=== PATIENT | male | born 1950 | race Caucasian/White ===

== ENCOUNTER 2022-02-26 15:15 | Outpatient (REF) | payer MEDICARE, SELFPAY ==
[2022-02-26 15:54] LABS: COVID-19 Test Negative (Negative); IDNOW Serial# 55D5AD1C
== END 2022-02-26 15:16 | disposition home or self-care (01) ==
LOC: HO.LAB 15:15
PROVIDERS: Visit Provider Internal Medicine
DX: Z20.822 Contact with and (suspected) exposure to COVID-19 (principal)
CPT/HCPCS: 87635; C9803

== ENCOUNTER 2022-04-21 14:06 | Outpatient (REF) | payer MEDICARE, OTHER, SELFPAY ==
[2022-04-21 16:01] LABS: Hematocrit 37.8 % (42.0-52.0); Hemoglobin 12.3 g/dl (14.0-18.0); Mean Corpuscular HGB Conc 32.5 g/dl (31.0-36.0); Mean Corpuscular Hemoglobin 27.8 pg (27.0-33.0); Mean Corpuscular Volume 85.5 fL (80.0-98.0); Mean Platelet Volume 10.1 fL (9.4-12.4); Platelet Count 167 X10*3/uL (160-400); Red Blood Count 4.42 X10*6/uL (4.60-5.80); Red Cell Distribution Width 15.1 % (11.0-16.0); White Blood Count 6.1 X10*3/uL (4.8-10.8)
[2022-04-21 16:38] LABS: Alanine Aminotransferase 31 U/L (0-40); Albumin Level 4.4 g/dL (3.5-5.0); Alkaline Phosphatase 138 U/L (39-117); Anion Gap 13 (12-20); Aspartate Amino Transferase 38 U/L (5-37); Bilirubin Total 0.6 mg/dL (0.0-1.0); Blood Urea Nitrogen 29 mg/dL (9-16); Calcium 9.1 mg/dL (8.4-10.2); Carbon Dioxide 26 mmol/L (22-29); Chloride 107 mmol/L (96-108); Estimated Glomerular Filt Rate 46; Glucose Random 87 mg/dL (60-115); Lipase 25 U/L (8-78); Potassium 4.7 mmol/L (3.3-5.1); Sodium 141 mmol/L (135-145); Total Protein 6.7 g/dL (6.5-8.0)
[2022-04-21 16:54] LABS: TSH reflex Free T4 1.82 uIU/mL (0.32-4.0)
== END 2022-04-21 14:07 | disposition home or self-care (01) ==
LOC: HO.LAB 14:06
PROVIDERS: PCP Internal Medicine; Visit Provider Nurse Practitioner Family
DX: K21.9 Gastro-esophageal reflux disease without esophagitis (principal); K59.1 Functional diarrhea; R10.9 Unspecified abdominal pain; K59.00 Constipation, unspecified; D64.9 Anemia, unspecified; E03.9 Hypothyroidism, unspecified; E78.5 Hyperlipidemia, unspecified; I10 Essential (primary) hypertension
CPT/HCPCS: 36415; 80053; 83690; 84443; 85027; 99202

== ENCOUNTER 2022-06-03 11:53 | Outpatient (REF) | payer OTHER, SELFPAY ==
[2022-06-03 15:32] LABS: Blood Urea Nitrogen 27 mg/dL (9-16); C Reactive Protein 0.17 mg/dL (< or = 0.50); Estimated Glomerular Filt Rate 56
[2022-06-03 16:05] LABS: Folate 17.1 ng/mL (> or = 4.0); Vitamin B12 888 pg/mL (200-900)
[2022-06-08 15:23] LABS: Vitamin D 25-OH, D2 <4 ng/mL; Vitamin D 25-OH, D3 70 ng/mL; Vitamin D 25-OH, Total 70 ng/mL (30-100)
== END 2022-06-03 11:54 | disposition home or self-care (01) ==
LOC: HO.LAB 11:53
PROVIDERS: PCP Internal Medicine; Visit Provider Nurse Practitioner Family
DX: R10.11 Right upper quadrant pain (principal); K58.9 Irritable bowel syndrome, unspecified; E55.9 Vitamin D deficiency, unspecified; R19.7 Diarrhea, unspecified; D64.9 Anemia, unspecified
CPT/HCPCS: 36415; 82306; 82565; 82607; 82746; 84520; 86140; 99212

== ENCOUNTER 2022-06-04 12:48 | Outpatient (REF) | payer OTHER, SELFPAY ==
[2022-06-10 21:59] LABS: Calprotectin, Fecal 14 mcg/g
== END 2022-06-04 12:49 | disposition home or self-care (01) ==
LOC: HO.LNP 12:48
PROVIDERS: Visit Provider Nurse Practitioner Family
DX: R15.9 Full incontinence of feces (principal)
CPT/HCPCS: 83993

== ENCOUNTER 2022-07-10 08:02 | Outpatient (REF) | payer OTHER, MEDICARE, SELFPAY ==
--- NOTE | ~2022-07-10 | CT_ITS ---
EXAMINATION: CT ENTEROGRAPHY ABDOMEN AND PELVIS WITH CONTRAST CLINICAL INFORMATION: Diarrhea COMPARISON: None available. TECHNIQUE: Study performed with oral VoLumen (1350 mL) and 480 mL of water to distend the abdomen. The patient was injected with 85 mL Omnipaque 350 intravenous contrast which was administered without adverse effect. Coronal and sagittal reformatted images were obtained at the technologist's workstation. This CT examination was performed using dose optimization techniques as appropriate, variously including the following: *Automated exposure control *Adjustment of mA and/or kV according to patient size (this includes techniques or standardized protocols for targeted exams where dose is matched to indication/reason for exam; i.e. extremities or head) *Use of iterative reconstruction technique DLP: 858 mGy-cm FINDINGS: GASTROINTESTINAL FINDINGS: Stomach: Well-distended and normal in appearance. Small intestine: Satisfactorily distended and normal in appearance. Large intestine: Well-distended and normal in appearance. No perirectal changes demonstrated. The appendix is is not identified with certainty. Additional findings: No abnormal enhancement of the vasa recta or significant mesenteric or retroperitoneal lymphadenopathy is seen. No abdominal abscess or fistulous tract demonstrated. ABDOMINAL AND PELVIC CT FINDINGS: Liver, gallbladder, biliary tract: Normal Pancreas: Normal Spleen: Normal Adrenal glands and kidneys: There is a small 3 mm stone in the upper pole of the left kidney. Adrenal glands and kidneys are otherwise normal. Ureters and bladder: Ureters are normal. Bladder not optimally distended. Prominent prostate gland measuring 4 x 4.5 cm in AP and transverse dimension. Lymphovascular structures: Severe atherosclerotic disease. No aneurysm. Coronary artery calcification. Bones: Degenerative changes of the spine and scoliosis. Mild degenerative changes at the hip joints. Small umbilical hernia containing fat. Lung bases: There is a 4 mm calcified right lower lobe nodule. There is a 4 x 8 mm noncalcified left lower lobe nodule. There is dependent atelectasis at the lung bases. CT/CT enterography IMPRESSION: Unremarkable CT enterography exam. Small nonobstructing left renal stone. Severe atherosclerotic disease and coronary artery calcification. Prominent prostate gland. Small umbilical hernia containing fat. Small calcified right lower lobe nodule probably representing a calcified granuloma. 4 x 8 mm noncalcified left lower lobe nodule. Chest CT follow-up recommended.
[2022-07-10] MEDS: iohexoL 350 MG/ML 100 ML INFUS..BTL 85 ML IV (09:39)
[2022-07-10] MEDS: Sorbitol/Mannit/Xanth Imaging 500 ML LIQUID 1500 ML PO (09:40)
[2022-07-10 14:36] LABS: Creatinine POC 1.5 mg/dL (0.5-1.4); GFR POC > 60
== END 2022-07-10 08:03 | disposition home or self-care (01) ==
LOC: HO.CT 08:02
PROVIDERS: PCP Internal Medicine; Visit Provider Nurse Practitioner Family
DX: R19.7 Diarrhea, unspecified (principal)
CPT/HCPCS: 74177; 82565; Q9967

== ENCOUNTER → 2022-07-22 08:02 | Outpatient (BNVA) | payer OTHER, MEDICARE, SELFPAY | PROVIDERS: PCP Internal Medicine; Visit Provider Nurse Practitioner Family | DX: K59.1 Functional diarrhea (principal); K58.9 Irritable bowel syndrome, unspecified | CPT/HCPCS: 99212 ==

== ENCOUNTER → 2022-08-31 10:59 | Outpatient (BNVA) | payer OTHER, MEDICARE, SELFPAY | PROVIDERS: PCP Internal Medicine; Referring Provider Internal Medicine; Visit Provider Nurse Practitioner Family | DX: K58.2 Mixed irritable bowel syndrome (principal); Z79.899 Other long term (current) drug therapy | CPT/HCPCS: 99212 ==

== ENCOUNTER 2023-03-09 13:58 | Day surgery (SDC) | payer OTHER, SELFPAY ==
--- NOTE | 2023-03-09 13:42 | MHC.SHP ---
Pre-Procedural Eval Section A Date of Service: 03/09/23 Section B Chief Complaint: screening Relevant Family History (Specify if Yes): No Relevant Social History: None Present Medications: see Short Stay Collaborative assessment Medical History: Significant History (htn, thyroid disease, high cholesterol, CAD) History of Previous Operations: Relevant previous surgery/procedure and date(s) (Hx of left knee surgery Hx of right knee surgery) Allergies: Allergies Allergy/AdvReac Type Severity Reaction Status Date / Time No Known Allergies Allergy Unverified 08/31/22 11:07 [No Known Allergies*] Review of Systems Sugical H&P ROS: Negative: Constitution, Cardiovascular, Respiratory, Neurological, Psychiatric, Hem-Onc, Allergic/Immunologic, Gastrointestinal, Genitourinary, Musculoskeletal, Integumentary, Endocrine and Eyes/Ears/Nose/Throat Exam Surgical H&P Exam: Normal: HEENT, Normal: Heart, Normal: Lungs, Normal: Extremities, Normal: Abdomen, Normal: Skin and Normal: Neurological Plan Diagnosis/Plan: Unchanged I have reviewed the history and physical and performed a pertinent physical examination on my patient. No changes have occurred unless specified. Time Spent With Patient Time: Total time managing care of this patient today ____ minutes.
[2023-03-09 14:08] VITALS: BMI 34.7
[2023-03-09 14:15] VITALS: BP 157/97; PULSE 75; RESP 18; TEMP 36.7; O2SAT 96
[2023-03-09] MEDS: Lactated Ringers 1,000 ML 80 ML IVCONT (14:20)
--- NOTE | 2023-03-09 14:37 | PC.NURSE ---
report given to minoo duggan rn at this time.
--- NOTE | 2023-03-09 15:08 | P.OP_ITS ---
Operative Note Operative Note Date of Service: 03/09/23 Narrative: Operative Information Procedure Description: Colonoscopy Indication: screening Anesthesia: MAC COLONOSCOPY Instrument: Olympus variable stiffness ADULT scope 190L Colonoscopy Monitoring: Vital signs and clinical assessment, continuous EKG monitoring, Pulse oximetry, Carbon Dioxide monitoring and blood pressure monitoring were done throughout the procedure. Colon withdrawal time was 6 minutes. Procedure: The patient was placed in the left lateral decubitis position and pre-procedure medications were administered. After a digital rectal examination of the ano-rectum, the video colonoscope was inserted into the rectum and advanced through the colon to the cecum/TI. The colonoscope was slowly withdrawn in a retrograde panoramic fashion and the colon mucosa was carefully examined including a retroflexed view of the rectum. Findings and interventions are described below. Procedure Difficulty: easy Findings: Terminal Ileum-normal Cecum:normal Ascending Colon: normal Transverse Colon -normal Descending Colon:normal Sigmoid Colon: midl diverticulosis Rectum: Retroflexion with medium sized internal hemorrhoids, grade I Anorectum - normal Colon preparation: [place] Bowel Preparation Scale Right colon; 2 Transverse colon: 3 Left colon; 3 (0 = Unprepared colon segment with mucosa not seen due to solid stool that cannot be cleared. 1 = Portion of mucosa of the colon segment seen, but other areas of the colon segment not well seen due to staining, residual stool and/or opaque liquid. 2 = Minor amount of residual staining, small fragments of stool and/or opaque liquid, but mucosa of colon segment seen well. 3 = Entire mucosa of colon segment seen well with no residual staining, small fragments of stool or opaque liquid) Impression and Post Procedure Diagnosis: internal hemorrhoids diverticular disease Plan: High fiber diet leaflet Avoid straining at stool, epsom salts and sitz bath, anusol supps or cream Repeat Colonoscopy in 10 years if patient desires and if health allows or earlier if clinically indicated otherwise this would be his last screening colonoscopy Above findings were reviewed with the patient and relevant handouts were provided if indicated.
--- NOTE | 2023-03-09 15:11 | P.CONAN_ITS ---
[facility] Past Medical History Medical History (Updated 03/09/23 @ 14:16 by Mary Ellen Yusuf RN) Hypercholesteremia Hypothyroid Hypertension Family History Family History Father Hypothyroidism determined by thyroid function test Mother HTN (hypertension) Family history of problems with anesthesia: No Surgical History Surgical History (Updated 03/09/23 @ 14:17 by Mary Ellen Yusuf RN) Hx of colonoscopy Hx of right knee surgery Hx of left knee surgery History of Problems with Anesthesia: No Social History Social History Household Members: None Alcohol intake: current Patient Tobacco Use Status: Former Tobacco user Substance Use Type: Marijuana Are you DNR?: No Advance Directives: No Advance Directives Information Provided: Yes Nutrition Risks: No Nutritional Risk Meds Allergies Allergy/AdvReac Type Severity Reaction Status Date / Time No Known Allergies Allergy Verified 03/09/23 14:21 [No Known Allergies*] Active Medications: Current Medications Lactated Ringer's (Lr) 1,000 mls @ 80 mls/hr IVCONT .[id number] ANJU Last Admin: 03/09/23 14:20 Dose: 80 mls/hr Home Medications Medication Instructions Recorded Confirmed Last Taken Type aspirin 81 mg tablet,delayed 81 mg PO DAILY 04/21/22 03/09/23 03/06/23 History release (Adult Low Dose Aspirin) diclofenac sodium 50 mg 50 mg PO BID 04/21/22 03/09/23 Unknown History tablet,delayed release hydrochlorothiazide 25 mg tablet 25 mg PO DAILY 04/21/22 03/09/23 03/09/23 History levothyroxine 25 mcg capsule 25 mcg PO DAILY 04/21/22 03/09/23 03/09/23 History lisinopril 10 mg tablet 10 mg PO DAILY 04/21/22 03/09/23 Unknown History rosuvastatin 20 mg tablet (Crestor) 20 mg PO DAILY 04/21/22 03/09/23 Unknown History Exam Height,Weight and Vital Signs: Height 5 ft 6 in Weight 97.522 kg Last Vital Signs Temp 98.0 F 03/09/23 14:15 Pulse 75 03/09/23 14:15 Resp 18 03/09/23 14:15 BP 157/97 H 03/09/23 14:15 Pulse Ox 96 11/28/23 14:15 O2 Del Method Room Air 03/09/23 14:15 Airway Mallampati Class: II TM Dist: >3cm Neck ROM: Full Assessment and Plan Assessment Anesthesia Assessment: Anesthesia Plan Discussed and Chart Reviewed Final Anesthetic Review Family History of Problems with Anesthesia: No History of Problems with Anesthesia: No NPO: Yes ASA Class: II Final Preanesthetic Review: No Changes in Pt Med Stat, Meds/Allgs Chart Re viewed, Consent Obtained/Reviewed and Anes Risks/Benef Reviewed Patient Risk: Low Procedure Risk: Low Anesthetic Plan Anesthetic Plan: MAC: Disposition: Standard PACU
[2023-03-09 15:12] VITALS: BP 153/85; PULSE 80; RESP 16; TEMP 36.4; O2SAT 97
[2023-03-09 15:27] VITALS: BP 139/81; PULSE 73; RESP 18; TEMP 36.5; O2SAT 97
== END 2023-03-09 15:43 | disposition home or self-care (01) ==
PROVIDERS: PCP Internal Medicine; Visit Provider Internal Medicine Gastroenterology
PROC: 0DJD8ZZ Inspection of Lower Intestinal Tract, Via Natural or Artificial Opening Endoscopic (ICD-10-PCS; CPT 45378; principal; 2023-03-09 15:50)
DX: Z12.11 Encounter for screening for malignant neoplasm of colon (principal); K57.30 Diverticulosis of large intestine without perforation or abscess without bleeding; K64.0 First degree hemorrhoids; I25.10 Atherosclerotic heart disease of native coronary artery without angina pectoris; I10 Essential (primary) hypertension; E78.00 Pure hypercholesterolemia, unspecified; E03.9 Hypothyroidism, unspecified; Z79.82 Long term (current) use of aspirin; Z79.899 Other long term (current) drug therapy; Z98.890 Other specified postprocedural states; Z87.891 Personal history of nicotine dependence; F12.90 Cannabis use, unspecified, uncomplicated
CPT/HCPCS: 45378; J2704

== ENCOUNTER → 2023-03-09 13:58 | Outpatient (BNV) | payer OTHER, SELFPAY | PROVIDERS: PCP Internal Medicine; Visit Provider Internal Medicine Gastroenterology | DX: Z12.11 Encounter for screening for malignant neoplasm of colon (principal); K57.90 Diverticulosis of intestine, part unspecified, without perforation or abscess without bleeding; K64.8 Other hemorrhoids | CPT/HCPCS: 45378 ==

== ENCOUNTER 2023-03-23 11:43 | Outpatient (AMB) | payer OTHER, SELFPAY ==
--- NOTE | 2023-03-23 11:44 | MHC.OFFVIS ---
Intake Vital Signs 03/23/23 11:45 Height 5 ft 6 in Weight 216 lb 0.848 oz BMI 34.9 BP 135/74 Blood Pressure Location Lt brachial Position Sitting Pulse 66 Intake Visit Reasons: s/p colon Intake Note: Gilmar presents in the office as a follow up Colonoscopy. States that the only concerns he is having today is loose stools. Allergies No Known Allergies [No Known Allergies*] Allergy (Verified 03/09/23 14:21) HPI s/p colon HPI Details LAST VISIT Diarrhea Continue Citrucel, however patient will stop Citrucel 7 days before the procedure to ensure that he is able to evacuate his bowels during the prep IBS (irritable bowel syndrome) Continue avoiding lactose, continue simethicone on as needed basis. Screen for colon cancer Patient denies any cardiac or respiratory symptoms.? Denies any issues with anesthesia in the past.? Denies any history of sleep apnea.? No history infectious diseases in the past or present.? Patient is on low-dose aspirin. History of benign colon polyps on last colonoscopy 7 years ago. Patient denies melena, hematochezia, unintentional weight loss or ribbon like stools.? Discussed at length the pre-procedure,? prep, diet & medications as well as what to expect prior, during and after the procedure.?? Stressed the importance of good bowel prep. ?Recommended the use of Vaseline or Calmoseptine OTC & baby wipes with bowel movements to promote comfort.? ?Patient verbalizes understanding and agrees to plan of care.? He was given the opportunity to ask questions and all questions answered.? We will see him after the procedure.? Plan Medications New bisacodyl (Dulcolax (bisacodyl)) take 2 tabs at noon the day before your colonoscopy 10 mg (2 x 5 mg) PO ONCE 1 day 2 tabs 0RF Z12.11 - Encounter for screening for malignant neoplasm of colon polyethylene glycol 3350 (Miralax) As directed by gastroenterology department at [facility] 238 grams PO ONCE 238 grams 0RF Z12.11 - Encounter for screening for malignant neoplasm of colon COLONOSCOPY SCREENING Findings: Terminal Ileum-normal Cecum:normal Ascending Colon: normal Transverse Colon -normal Descending Colon:normal Sigmoid Colon: midl diverticulosis Rectum: Retroflexion with medium sized internal hemorrhoids, grade I Anorectum - normal Colon preparation: [place] Bowel Preparation Scale Right colon; 2 Transverse colon: 3 Left colon; 3 (0 = Unprepared colon segment with mucosa not seen due to solid stool that cannot be cleared. 1 = Portion of mucosa of the colon segment seen, but other areas of the colon segment not well seen due to staining, residual stool and/or opaque liquid. 2 = Minor amount of residual staining, small fragments of stool and/or opaque liquid, but mucosa of colon segment seen well. 3 = Entire mucosa of colon segment seen well with no residual staining, small fragments of stool or opaque liquid) Impression and Post Procedure Diagnosis: internal hemorrhoids diverticular disease Plan: High fiber diet leaflet Avoid straining at stool, epsom salts and sitz bath, anusol supps or cream Repeat Colonoscopy in 10 years if patient desires and if health allows or earlier if clinically indicated otherwise this would be his last screening colonoscopy TODAY'S VISIT: Patient is here today for follow-up and to discuss colonoscopy results. Patient denies any ill effects from the prep, anesthesia or procedure itself. Patient had no polyps, internal hemorrhoids and diverticulosis found in sigmoid colon. Patient reports that he was moving his bowels better after colonoscopy. Currently patient reports that his stools are softer and more frequent. He stopped taking Citrucel. Stopped taking probiotic couple days ago as he felt that might have been contributing to had having loose stools. Patient denies melena, hematochezia, unintentional weight loss or ribbon like stools. Patient also believes that it could be his diet that is causing him have loose stools. Patient reports that his acid reflux symptoms are suppressed for the most part. Patient does report occasional postprandial abdominal bloating. [facility] Medical History (Updated 03/23/23 @ 13:26 by ANISH Coronado-) Diverticulosis Hypercholesteremia Hypothyroid Hypertension Surgical History Hx of colonoscopy Hx of right knee surgery Hx of left knee surgery Family History Father Hypothyroidism determined by thyroid function test Mother HTN (hypertension) Social History Household Members: None Alcohol intake: current Patient Tobacco Use Status: Former Tobacco user Substance Use Type: Marijuana Review of Systems Const Denies weight gain and Denies weight loss ENT Reports no additional complaints, Denies dysphagia and Denies odynophagia Card Reports no additional complaints Resp Reports no additional complaints GI Denies abdominal pain, Denies belching, Denies melena, Reports bloating, Denies change in bowel habits, Denies dysphagia, Denies excessive flatus, Denies dyspepsia, Denies heartburn, Denies diarrhea, Reports loose stools, Denies nausea, Denies odynophagia and Denies vomiting Reports no additional complaints Musc Reports no additional complaints Neuro Reports no additional complaints Psych Reports no additional complaints Endo Reports no additional complaints Physical Exam Vital Signs: Last Vital Signs Pulse 66 03/23/23 11:45 BP 135/74 03/23/23 11:45 BMI result Body Mass Index 34.9 Const General: healthy appearing, no acute distress and well developed Nutritional Appearance: obese Orientation/consciousness: patient oriented x3 HEENT Head: Yes normal to inspection, Yes normocephalic and Yes atraumatic Face and sinus: Yes normal facial exam Mouth: Normal oral and palatal mucosa present Throat: Yes posterior oropharynx normal, Yes tonsils normal and Yes uvula midline Eyes General: appearance normal, both eyes and all related structures Neck Neck: Yes normal visual inspection, Yes full ROM and Yes trachea midline Thyroid: Thyroid normal Resp Effort & Inspection: normal respiratory effort, able to speak in complete sentences, no tracheal deviation and symmetric chest movement Auscultation: clear to auscultation bilaterally Cardio Rate: regular rate GI Inspection: Yes normal to inspection and No distended Palpation (GI): Soft to palpation, not firm, nontender and No hepatosplenomegaly present Auscultation: normal bowel sounds General: Yes no CVA tenderness Back/Spine/Pelvis Back: no CVA tenderness Skin General skin exam: elasticity normal, turgor normal and dry skin Neuro General: patient oriented x3 Psych Appearance: grossly normal Mental Status: mental status grossly normal Affect: normal affect Assessment & Plan Assessment & Plan (1) Diverticulosis: Code(s): K57.90 - Diverticulosis of intestine, part unspecified, without perforation or abscess without bleeding (2) Diarrhea: Code(s): R19.7 - Diarrhea, unspecified Qualifiers: Diarrhea type: functional diarrhea Qualified Code(s): K59.1 - Functional diarrhea (3) IBS (irritable bowel syndrome): Code(s): K58.9 - Irritable bowel syndrome without diarrhea Qualifiers: Irritable bowel syndrome type: with diarrhea Qualified Code(s): K58.0 - Irritable bowel syndrome with diarrhea Plan Discussed with patient no FODMAP diet. List of food recommended as well as list of food to avoid given to patient. Patient can continue taking Citrucel. Patient will try to a avoid lactose. Colonoscopy discussed with patient. Repeat colo in 10 years, sooner if clinically necessary. Patient will return in 6 months, sooner on as needed basis. Thank you for allowing me to participate in his care Orders: Orders Complete Blood Count no Diff Today D64.9 - Anemia, unspecified, K21.9 - Gastro-esophageal reflux disease without esophagitis Coding Level of Care Code Est Pt Level 3 (65305) Diagnoses Diverticulosis K57.90 Functional diarrhea K59.1 Diarrhea type: functional diarrhea Irritable bowel syndrome with diarrhea K58.0 Irritable bowel syndrome type: with diarrhea Time Spent (min) 30 Comment 20 minutes spent with patient and additional 10 minutes spent reviewing her records
[2023-03-23 11:45] VITALS: BP 135/74; PULSE 66; BMI 34.9
== END 2023-03-23 12:48 | disposition home or self-care (01) ==
PROVIDERS: PCP Internal Medicine; Visit Provider Nurse Practitioner Family
DX: K57.90 Diverticulosis of intestine, part unspecified, without perforation or abscess without bleeding (principal); K58.0 Irritable bowel syndrome with diarrhea; Z71.2 Person consulting for explanation of examination or test findings
CPT/HCPCS: 99213

== ENCOUNTER → 2023-03-23 11:43 | Outpatient (BNVA) | payer OTHER, SELFPAY | PROVIDERS: PCP Internal Medicine; Visit Provider Nurse Practitioner Family | DX: K57.90 Diverticulosis of intestine, part unspecified, without perforation or abscess without bleeding (principal); K58.0 Irritable bowel syndrome with diarrhea | CPT/HCPCS: 99212 ==

== ENCOUNTER 2023-03-29 12:49 | Outpatient (REF) | payer OTHER, SELFPAY ==
[2023-03-29 14:07] LABS: Hematocrit 40.9 % (42.0-52.0); Hemoglobin 13.4 g/dl (14.0-18.0); Mean Corpuscular HGB Conc 32.8 g/dl (31.0-36.0); Mean Corpuscular Volume 85.6 fL (80.0-98.0); Mean Platelet Volume 10.4 fL (9.4-12.4); Platelet Count 169 X10*3/uL (160-400); Red Blood Count 4.78 X10*6/uL (4.60-5.80); Red Cell Distribution Width 14.4 % (11.0-16.0); White Blood Count 5.6 X10*3/uL (4.8-10.8)
== END 2023-03-29 12:50 | disposition home or self-care (01) ==
LOC: HO.LAB 12:49
PROVIDERS: PCP Internal Medicine; Visit Provider Nurse Practitioner Family
DX: K21.9 Gastro-esophageal reflux disease without esophagitis (principal); D64.9 Anemia, unspecified
CPT/HCPCS: 36415; 85027

== ENCOUNTER 2023-09-22 11:41 | Outpatient (AMB) | payer OTHER, SELFPAY ==
[2023-09-22 11:52] VITALS: BP 106/60; PULSE 66; O2SAT 97; BMI 34.7
--- NOTE | 2023-09-22 11:52 | A.OFFVIS_ITS ---
Vital Signs 09/22/23 11:52 Height 5 ft 6 in Weight 214 lb 11.684 oz BMI 34.7 BP 106/60 Blood Pressure Location Rt brachial Position Sitting Pulse 66 Pulse Source Pulse Oximeter Pulse Oximetry (%) 97 Oxygen Delivery Method Room Air Intake Visit Reasons: 6 month follow Intake Note: Gilmar presents in office today for a scheduled 6 mos FUV. CC; Pt reports that they had previously had a flare up of IBS dated approximately 03/2023. Pt states that he had lomotil left over which he took and was able to control sx as a result. Pt states that the flare up lasted approximately 6 weeks. Pt is concerned about the presence of multiple episodes of IBS and would like to discuss potential PRN options to treat these episodes (lomotil). [employer] Watch [employer]er Required: No Allergies No Known Allergies [No Known Allergies*] Allergy (Verified 09/22/23 11:59) HPI HPI 6 month follow: Details: LAST VISIT: Diverticulosis Diarrhea IBS (irritable bowel syndrome) Plan Discussed with patient no FODMAP diet. List of food recommended as well as list of food to avoid given to patient. Patient can continue taking Citrucel. Patient will try to a avoid lactose. Colonoscopy discussed with patient. Repeat colo in 10 years, sooner if clinically necessary. Patient will return in 6 months, sooner on as needed basis. ? Thank you for allowing me to participate in his care Orders Orders Complete Blood Count no Diff Today D64.9, K21.9 TODAY'S VISIT Patient is here today for follow-up. Patient reports that couple months ago he had episodes where he was afraid to leave the house due to diarrhea. Patient states that when he felt like when it started than he was unable to control. The only thing that he was able to control his diarrhea with was Lomotil. Patient had leftover Lomotil of from being treated in the past. Patient denies melena, hematochezia, unintentional weight loss. Patient denied any fever or chills. Not around anyone with similar symptoms. No travels around that time. Patient also reported abdominal bloating at that time. Denies any dyspepsia, dysphagia or odynophagia. No nausea or vomiting. Patient denies any other GI concerning symptoms. Patient states that he is watching what he eats. Avoiding certain food that could be irritating. Patient denies any abdominal pain or discomfort, occasional cramping not related to meals. [facility] Medical History Diverticulosis Hypercholesteremia Hypothyroid Hypertension Surgical History Hx of colonoscopy Hx of right knee surgery Hx of left knee surgery Family History Father Hypothyroidism determined by thyroid function test Mother HTN (hypertension) Social History Household Members: None Alcohol intake: current Patient Tobacco Use Status: Former Tobacco user Substance Use Type: Marijuana Review of Systems Const Denies weight gain and Denies weight loss ENT Reports no additional complaints, Denies dysphagia and Denies odynophagia Card Reports no additional complaints Resp Reports no additional complaints GI Denies abdominal pain, Denies belching, Denies melena, Denies bloating, Denies change in bowel habits, Denies dysphagia, Denies excessive flatus, Denies dyspepsia, Denies heartburn, Denies diarrhea, Denies loose stools, Denies nausea, Denies odynophagia and Denies vomiting Reports no additional complaints Musc Reports no additional complaints Neuro Reports no additional complaints Psych Reports no additional complaints Endo Reports no additional complaints Physical Exam Vital Signs: Last Vital Signs Pulse 66 09/22/23 11:52 BP 106/60 09/22/23 11:52 Pulse Ox 97 09/22/23 11:52 Oxygen Delivery Method Room Air 09/22/23 11:52 BMI result Body Mass Index 34.7 Const General: healthy appearing and no acute distress Nutritional Appearance: obese Orientation/consciousness: patient oriented x3 Resp Effort & Inspection: normal respiratory effort, able to speak in complete sentences, no tracheal deviation and symmetric chest movement Auscultation: clear to auscultation bilaterally Cardio Rate: regular rate GI Inspection: Yes normal to inspection, No distended and Yes obesity Palpation (GI): Soft to palpation, not firm, nontender and No hepatosplenomegaly present Auscultation: normal bowel sounds General: Yes no CVA tenderness Back/Spine/Pelvis Back: no CVA tenderness Skin General skin exam: elasticity normal, turgor normal and dry skin Neuro General: patient oriented x3 Psych Appearance: grossly normal Mental Status: mental status grossly normal Affect: normal affect Assessment & Plan Assessment & Plan (1) Diverticulosis: Code(s): K57.90 - Diverticulosis of intestine, part unspecified, without perforation or abscess without bleeding Category: Medical (2) Diarrhea: Code(s): R19.7 - Diarrhea, unspecified Qualifiers: Diarrhea type: functional diarrhea Qualified Code(s): K59.1 - Functional diarrhea (3) IBS (irritable bowel syndrome): Code(s): K58.9 - Irritable bowel syndrome without diarrhea Qualifiers: Irritable bowel syndrome type: with diarrhea Qualified Code(s): K58.0 - Irritable bowel syndrome with diarrhea Plan Patient will increase fiber in his diet. Discussed with him again low FODMAP diet. List of food recommended as well as list of food to avoid given to patient. History of dietary doses, possible not emptying his bowels well despite having diarrhea. Increase fiber patient will take 2 Citrucel daily. Increase fluid intake and activity to promote better bowel motility. Patient will call our office if he will have return in his symptoms. Patient can take on as needed basis Lomotil, however he was instructed to make sure that he is able to empty his bowels as Lomotil can be constipating. Patient will return in 6 months, sooner on as needed basis. He is agreeable to this plan and verbalizes understanding of instructions. He was given the opportunity to ask questions and all questions answered. Thank you for allowing me to participate in his care Medications: Changed From methylcellulose (laxative) 500 mg PO DAILY To methylcellulose (laxative) (Citrucel) 1,000 mg (2 x 500 mg) PO DAILY 180 tabs 4RF Coding Level of Care Code Est Pt Level 3 (17742) Diagnoses Diverticulosis K57.90 Functional diarrhea K59.1 Diarrhea type: functional diarrhea Irritable bowel syndrome with diarrhea K58.0 Irritable bowel syndrome type: with diarrhea Time Spent (min) 30 Comment 20 minutes spent with patient and additional 10 minutes spent reviewing his records
== END 2023-09-22 12:32 | disposition home or self-care (01) ==
PROVIDERS: PCP Internal Medicine; Visit Provider Nurse Practitioner Family
DX: K57.90 Diverticulosis of intestine, part unspecified, without perforation or abscess without bleeding (principal); K58.0 Irritable bowel syndrome with diarrhea
CPT/HCPCS: 99213

== ENCOUNTER → 2023-09-22 11:41 | Outpatient (BNVA) | payer OTHER, SELFPAY | PROVIDERS: PCP Internal Medicine; Visit Provider Nurse Practitioner Family | DX: K58.0 Irritable bowel syndrome with diarrhea (principal); K57.90 Diverticulosis of intestine, part unspecified, without perforation or abscess without bleeding | CPT/HCPCS: 99212 ==

== ENCOUNTER 2024-03-22 10:54 | Outpatient (AMB) | payer OTHER, SELFPAY ==
[2024-03-22 10:57] VITALS: BP 140/78; PULSE 64; O2SAT 96; BMI 36.2
--- NOTE | 2024-03-22 10:57 | A.OFFVIS_ITS ---
Vital Signs 03/22/24 10:57 Height 5 ft 6 in Weight 224 lb 6.889 oz BMI 36.2 BP 140/78 H Blood Pressure Location Rt brachial Position Sitting Pulse 64 Pulse Source Pulse Oximeter Pulse Oximetry (%) 96 Oxygen Delivery Method Room Air Intake Visit Reasons: 6 month follow up Intake Note: ESTABLISHED PATIENT Gilmar presents in office today for a scheduled 6 mos FUV. Meds and Allergies reviewed? Y No recent or relevant surgeries? N Any significant concerns or new changes? Pt had been doing well up until this week. Pt has had one episode this week of urgency and need to go to the bathroom for BM quickly. Pt is very concerned about possible implications this may have. Pharmacy verified? [facility] School Supervisor Required: No Allergies No Known Allergies [No Known Allergies*] Allergy (Verified 03/22/24 10:57) HPI HPI 6 month follow up: Details: LAST VISIT: Diverticulosis Diarrhea IBS (irritable bowel syndrome) Plan Patient will increase fiber in his diet. Discussed with him again low FODMAP diet. List of food recommended as well as list of food to avoid given to patient. History of dietary doses, possible not emptying his bowels well despite having diarrhea. Increase fiber patient will take 2 Citrucel daily. Increase fluid intake and activity to promote better bowel motility. Patient will call our office if he will have return in his symptoms. Patient can take on as needed basis Lomotil, however he was instructed to make sure that he is able to empty h is bowels as Lomotil can be constipating. Patient will return in 6 months, sooner on as needed basis. He is agreeable to this plan and verbalizes understanding of instructions. He was given the opportunity to ask questions and all questions answered. ? Thank you for allowing me to participate in his care Medications Changed Changed From methylcellulose (laxative) 500 mg PO DAILY Changed To methylcellulose (laxative) (Citrucel) 1,000 mg (2 x 500 mg) PO DAILY 180 tabs 4RF TODAY'S VISIT: Patient reports that he has been doing quite well since last visit except for 1 episode of severe diarrhea that lasted 3 hours on March 13. Patient had no cramping however he reports urgency and the frequency of his bowels. Patient reports that since then his bowels returned to normal. Patient denies any blood or mucus in his stool. Patient reports that he had clam chowder day before. Patient states that normally he has no trouble with plan powder, however he purchased clam chowder in [employer]. Patient denies any fever or chills. Denies any nausea or vomiting. FORMERLY [facility], [facility] Medical History (Updated 03/22/24 @ 13:17 by Denita Villareal [facility]) GERD (gastroesophageal reflux disease) Diverticulosis Hypercholesteremia Hypothyroid Hypertension Surgical History Hx of colonoscopy Hx of right knee surgery Hx of left knee surgery Family History Father Hypothyroidism determined by thyroid function test Mother HTN (hypertension) Social History Household Members: None Alcohol intake: current Patient Tobacco Use Status: Former Tobacco user Substance Use Type: Marijuana Review of Systems Const Denies weight gain and Denies weight loss ENT Reports no additional complaints, Denies dysphagia and Denies odynophagia Card Reports no additional complaints Resp Reports no additional complaints GI Denies abdominal pain, Denies belching, Denies melena, Denies bloating, Denies change in bowel habits, Denies dysphagia, Denies excessive flatus, Denies dyspepsia, Denies heartburn, Denies diarrhea, Denies loose stools, Denies nausea, Denies odynophagia and Denies vomiting Reports no additional complaints Musc Reports no additional complaints Neuro Reports no additional complaints Psych Reports no additional complaints Endo Reports no additional complaints Physical Exam Vital Signs: Last Vital Signs Pulse 64 03/22/24 10:57 BP 140/78 H 03/22/24 10:57 Pulse Ox 96 03/22/24 10:57 Oxygen Delivery Method Room Air 03/22/24 10:57 BMI result Body Mass Index 36.2 Const General: healthy appearing and no acute distress Nutritional Appearance: obese Orientation/consciousness: patient oriented x3 Resp Effort & Inspection: normal respiratory effort, able to speak in complete sentences, no tracheal deviation and symmetric chest movement Auscultation: clear to auscultation bilaterally Cardio Rate: regular rate GI Inspection: Yes normal to inspection, No distended and Yes obesity Palpation (GI): Soft to palpation, not firm, nontender and No hepatosplenomegaly present Auscultation: normal bowel sounds General: Yes no CVA tenderness Back/Spine/Pelvis Back: no CVA tenderness Skin General skin exam: elasticity normal, turgor normal and dry skin Neuro General: patient oriented x3 Psych Appearance: grossly normal Mental Status: mental status grossly normal Affect: normal affect Assessment & Plan Assessment & Plan (1) Diverticulosis: Code(s): K57.90 - Diverticulosis of intestine, part unspecified, without perforation or abscess without bleeding Category: Medical (2) Diarrhea: Code(s): R19.7 - Diarrhea, unspecified Qualifiers: Diarrhea type: functional diarrhea Qualified Code(s): K59.1 - Functional diarrhea (3) IBS (irritable bowel syndrome): Code(s): K58.9 - Irritable bowel syndrome, unspecified Qualifiers: Irritable bowel syndrome type: with diarrhea Qualified Code(s): K58.0 - Irritable bowel syndrome with diarrhea (4) Postprandial abdominal bloating: Code(s): R14.0 - Abdominal distension (gaseous) (5) GERD (gastroesophageal reflux disease): Code(s): K21.9 - Gastro-esophageal reflux disease without esophagitis Category: Medical Qualifiers: Esophagitis presence: esophagitis presence not specified Qualified Code(s): K21.9 - Gastro-esophageal reflux disease without esophagitis Plan Patient will continue taking fiber. Avoid dietary triggers. Patient has a list of food to avoid at home. Lactose free milk, sour though bread recommended. Will check vitamin B12, folate rule out pancreatic insufficiency and check vitamin-D level. Avoid dietary triggers and late night snacking. Staying upright for minimum 3 hours after meals discussed with patient. Patient will return in 6 months. However patient will call our office if he will have any GI concerning symptoms. Patient is agreeable to plan of care and verbalizes understanding of instructions. He was given the opportunity to ask questions and all questions answered. Thank you for allowing me to participate in his care Orders: Orders Vitamin B12 and Folate Today R19.7 - Diarrhea, unspecified Pancreatic Elastase-1 Today R10.9 - Unspecified abdominal pain Vitamin D 25-OH (D2 and D3) Today E55.9 - Vitamin D deficiency, unspecified Coding Level of Care Code Est Pt Level 4 (25161) Diagnoses Diverticulosis K57.90 Functional diarrhea K59.1 Diarrhea type: functional diarrhea Irritable bowel syndrome with diarrhea K58.0 Irritable bowel syndrome type: with diarrhea Postprandial abdominal bloating R14.0 Gastroesophageal reflux disease, unspecified whether esophagitis present K21.9 Esophagitis presence: esophagitis presence not specified Time Spent (min) 35 Comment 25 minutes spent with patient and additional 10 minutes spent reviewing his records
--- OUTSIDE RECORDS SUMMARY | 2024-03-23 01:10 | XMS_ITS | Encounter Summary ---
Author Name [facility] [place] [facility] [place] [facility] [place] Address [address] [place] [address] Care Team Providers Care Ehs Teacher Name Role Phone BALTA MICHEL Primary Care Provider Unava ilable Insurance Providers: All historical and current Section Date Range: From patient's date of to the date document was created. This section includes the names of all active insurance providers for the patient. Insurance Provider Type of Coverage Plan Name Start of Policy Coverage End of Policy Coverage Group Number Member ID Insurance Provider's Telephone Number Policy Ortiz's Name Patient's Relationship to Policy Ortiz ELISABETH [place] OF [place] MEDICARE SUPPLEMEN KATHRYN PSUED O MEDEX BRONZ E Apr 12, 2014 [id number] WILUSZ,TH [place] PATIENT [place] MED[place]ARE SUPPLEMEN KATHRYN MEDEX BRONZ E Mar 12, 2013 [id number] WILUSZ,TH [place] PATIENT [place] SUPPLEMEN KATHRYN MEDEX BRONZ E Mar 12, 2013 [id number] WILZ,TH OM[place] PATIENT MEDICARE (WNR) MEDICARE (M) PART B Feb 10, 2013 PART B [id number] BENITO CARSON PATIENT MEDICARE (WNR) MEDICARE (M) PART A Feb 10, 2013 PART A [id number] BENITO CARSON PATIENT MEDICARE (WNR) MEDICARE (M) PART A Feb 10, 2013 PART A [id number] [phone] BENITO CARSON PATIENT MEDICARE (WNR) MEDICARE (M) PART B Feb 10, 2013 PART B [id number] [phone] BENITO CARSON PATIENT Selected Encounter This section includes the information on record at [place] for the Encounter. Date/Time Encounter Type Encounter Description Reason Provider Source Apr 13, 2023 10:00 AM PSYTX W PT [facility] ICD-10-CM F43.12 Post-traumatic stress disorder, chronic SHANELL SMITH Mike Encounter Template Text not used by [place] Assessments - Encounter Diagnoses This section includes the primary and secondary diagnoses documented for the Encounter. Date/Time Primary/Secondary Diagnosis Diagnosis Name Provider Source Apr 13, 2023 12:35 PM PRIMARY Post-traumatic stress disorder, chronic SHANELL SMITH Apr 13, 2023 12:35 PM SECONDARY Major depressv disorder, single episode, in partial remis SHANELL SMITH Plan of Treatment: Future Appointments (+ 6 months) and Future Tests (+/- 45 days) The Plan of Treatment section includes future care activities for the patient from all [place] treatmentfacilities. This section includes future appointments and future orders which are active, pending or scheduled. Future Appointments This section includes appointments that were scheduled to occur 6 months from the date of the Encounter, up to a maximum of 20 appointments. The data comes from all [place] treatment facilities. Appointment Date/Time Appointment Type Appointme nt Facility Name Apr 28, 2023 02:00 PM [facility] Apr 28, 2023 02:15 PM [facility] Apr 30, 2023 10:15 AM [facility] May 03, 2023 08:30 AM [place] [facility] [place] [facility] May 06, 2023 09:30 AM [facility] May 07, 2023 10:15 [facility] May 07, 2023 10:30 [facility] May 13, 2023 11:00 AM AMBULATORY - PSYCHIATRY [facility] May 14, 2023 09:15 AM AMBULATORY - MEDICINE [facility] May 14, 2023 09:30 [facility] May 17, 2023 10:10 AM [place] [facility] Jun 10, 2023 11:00 AM AMBULATORY - PSYCHIATRY [facility] Jul 08, 2023 10:00 AM AMBULATORY - PSYCHIATRY [facility] August 12, 2023 11:00 AM AMBULATORY - PSYCHIATRY [facility] August 18, 2023 11:15 AM AMBULATORY - MEDICINE [facility] August 18, 2023 11:30 AM AMBULATORY - MEDICINE [facility] Sep 16, 2023 11:00 AM AMBULATORY - PSYCHIATRY [facility] Sep 22, 2023 12:00 PM [facility] Lab Results: +/- 30 days of the encounter This section includes the Chemistry and Hematology Lab Results on record with [place] for the patient. Radiology Reports and Pathology Reports are provided separately, in subsequent sections. Lab Results This section contains the Chemistry/Hematology Results that were resulted 30 days before or 30 daysafter the date of the Encounter. Date/Time Source Result Type Result - Unit Interpretation Reference Range Comment Apr 28, 2023 01:39 PM [facility] MICROALBUMIN CREATININE RATIO PANEL Specimen Type: URINE No comment entered. Ordering Provider: JEAN MARIE MICHEL Report Released Date/Time: Apr 22, 2023 02:14 PM Reporting [facility] [address] [address] Performing Lab: [facility] [address] [address] MICROALBUMIN/C REATININE RATIO 10.6 mg/g 0-29.9 MICROALBUMIN,Q UANTITATIVE 1.6 mg/dL RR UNAVAIL CREATININE URINE 150.39 mg/dL Apr 28, 2023 01:39 PM [facility] LIPID PANEL FASTING Specimen Type: SERUM No comment entered. Ordering Provider: JEAN MARIE MICHEL Report Released Date/Time: Apr 22, 2023 02:14 PM Reporting Lab: [facility] [address] [address] Performing Lab: [address] [address] CHOLESTEROL 83 mg/dL TRIGLYCERIDE 57 mg/dL 0-150 LDL calculated 31 mg/dL 0-129 CHOL/HDL 2.0 HDL CHOLESTEROL 41 mg/dL 40-60 Apr 28, 2023 01:39 PM [facility] BASIC METABOLIC PANEL (fasting) Specimen Type: SERUM No comment entered. Ordering Provider: JEAN MARIE MICHEL Report Released Date/Time: Apr 22, 2023 02:14 PM Reporting Lab: [address] [address] Performing Lab: [address] [address] UREA NITROGEN 22 mg/dL 7-25 GLUCOSE 81 mg/dL 65-100 SODIUM 137 mmol/L 135-145 POTASSIUM 4.1 mmol/L 3.5-5.0 CHLORIDE 103 mmol/L 100-110 CO2 23 meq/L 20-30 CREATININE, Serum 1.18 mg/dL 0.50-1.40 eGFR(CKD-EPI 2020) 64 mL/min >60 Apr 28, 2023 01:39 PM [facility] LIVER FUNCTION Specimen Type: SERUM No comment entered. Ordering Provider: JEAN MARIE MICHEL Report Released Date/Time: Apr 22, 2023 02:14 PM Reporting Lab: [facility] [address] [address] Performing Lab: [address] [address] PROTEIN,TOTAL 6.5 g/dL 6.0-8.3 ALBUMIN 3.8 g/dL 3.5-5.0 ALKALINE PHOSPHATASE 109 U/L 40-150 AST 35 U/L H 5-34 ALT 36 U/L BILIRUBIN, TOTAL 1.0 mg/dL 0.2-1.2 Apr 28, 2023 01:39 PM [facility] HEMOGLOBIN A1C PANEL Specimen Type: BLOOD Comment: Values obtained from A1C measurements can vary. For atypical A1C assays, a reported value of 7.0 could actually be between 6.72 and 7.28 if measured by a reference method. A reported value of 9.0 could actually be between 8.73 and 9.27. Ref: http://www.ngs p.org/CAPdata. asp Ordering Provider: JEAN MARIE MICHEL Report Released Date/Time: Apr 22, 2023 02:14 PM Reporting Lab: [facility] [address] [address] Performing Lab: [address] [address] HEMOGLOBIN A1C 5.6 4.0-5.6 Apr 28, 2023 01:39 PM [facility] TSH Specimen Type: SERUM No comment entered. Ordering Provider: JEAN MARIE MICHEL Report Released Date/Time: Apr 22, 2023 02:14 PM Reporting Lab: [facility] [address] [address] Performing Lab: [facility] [address] [address] TSH 2.38 u[IU]/mL 0.35-5.00 Apr 28, 2023 01:39 PM [facility] CBC AND DIFF (AUTO) Specimen Type: BLOOD No comment entered. Ordering Provider: JEAN MARIE MICHEL Report Released Date/Time: Apr 22, 2023 02:14 PM Reporting Lab: [facility] [address] [address] Performing Lab: [address] [address] WBC 4.69 10*3/uL 4.50-11.00 RBC 4.53 10*6/uL 4.23-5.66 HGB 12.7 g/dL L 12.8-17 HCT 38.4 L 39.2-50.4 MCV 84.8 fL 82-99 MCHC 33.1 g/dL 30.8-35.1 PLT 178 10*3/uL 140-360 RDW-CV 13.2 12.0-16.0 [place], Abs 0.47 10*3/uL 0.30-1.10 MCH 28.0 pg 26.2-32.6 Neut % 51.6 43.7-75.8 Lymph % 34.8 14.0-42.3 [place] % 10.0 5.1-13.7 Eos % 2.8 0.4-6.8 Baso % 0.6 0.1-2.0 Neut, Abs 2.42 10*3/uL 2.20-7.60 Lymph, Abs 1.63 10*3/uL 1.00-3.20 Eos, Abs 0.13 10*3/uL 0.03-0.44 Baso, Abs 0.03 10*3/uL 0.01-0.13 Immature Gran % 0.2 0.0-0.7 Immature Gran, Abs 0.01 10*3/uL 0.00-0.06 Social History: Smoking Status (Most current) and Tobacco Use (All prior to encounter date) This section includes the most current, and the historical, smoking and tobacco- related health factors from the [place] facility where the Encounter took place. Current Smoking Status This section includes the most current smoking, or tobacco-related health factor, from the [place] facility where the Encounter took place. Date/Time Current Smoking Status Comment Gonzalo lin Sep 29, 2022 10:30 AM [facility]-TOBACCO FORMER USER [facility] Tobacco Use History This section includes a history of the smoking, or tobacco-related health factors, that were collected on or before the date of the Encounter. The data comes from the [place] facility where the Encounter took place. Date/Time Smoking Status/Tobacco Use Comment F acjaida Sep 29, 2022 10:30 AM VA-TOBACCO QUIT 15 YRS OR MORE [facility] Jan 21, 2021 09:00 AM VA-TOBACCO NEVER USED [facility] Feb 14, 2020 01:00 PM VA-TOBACCO FORMER USER [facility] Feb 14, 2020 01:00 PM VA-TOBACCO QUIT 15 YRS OR MORE [facility] Jul 05, 2018 03:54 PM VA-TOBACCO FORMER USER [facility] Jul 05, 2018 03:54 PM VA-TOBACCO QUIT 15 YRS OR MORE [facility] May 19, 2017 01:01 PM QUIT TOBACCO USE > 7 YEARS AGO [facility] Apr 29, 2016 12:14 PM QUIT TOBACCO USE > 7 YEARS AGO Quit 20 years ago [facility] Mar 21, 2015 02:25 PM QUIT TOBACCO USE > 7 YEARS AGO [facility] May 03, 2012 12:04 PM QUIT TOBACCO USE > 7 YEARS AGO [facility] Encounter Notes: All associated encounter notes This section contains the clinical notes associated to the Encounter. Date/Time Encounter Note(s) Provider Source Apr 13, 2023 10:00 AM SOCIAL WORK NOTE: LOCAL TITLE: SOCIAL WORK NOTE STANDARD TITLE: SOCIAL WORK NOTE DATE OF NOTE: APR 13, 2023@10:00 ENTRY DATE: APR 13, 2023@12:25:33 AUTHOR: SHANELL SMITH COSIGNER: URGENCY: STATUS: COMPLETED INFORMED CONSENT REVIEWED: At beginning of session reviewed rights and limits of confidentiality, mandatory reporting situations, duty to warn and protect, Jesus Warning, (if treatment team finds patient to be an acute danger to himself or others, that this information could be relayed to a court of law and presented to a kst operator), and [facility] access for active duty service members. Provided Suicide Prevention Hotline number, and other contact numbers as necessary. 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 SESSION FOCUS: Met with [place] face to face for individual counseling. Victor M stated his cat got sick and stopped eating. He began showing more symptoms so he took him to his friend who is a Office Coordinator Receptionist. She attempted to treat the cat without success. Victor M returned a few days later to have him euthanized. Victor M is very upset. He has a strong de with his animals, he lives alone so these relationships are important to him. Victor M stated the house feels empty now. We discussed his loss and he understands it will take time. He is willing to get a kitten knowing it will not replace the cat he just lost but to provide him with company. Victor M spoke about his walks in the [place] with a friend and their dogs. He shared coming upon a couple who were hiking and when the man disclosed he was a gilbert replied he did not agree with hunting. shared his dog (who was off leash) returned to [place] and stood close between this man and [place]. [place] thought that was an interesting behavior. INTERVENTIONS: Psychotherapeutic Interventions: ND; Reflective listening and support ASSESSMENT: BRIEF ASSESSMENT OF MENTAL STATUS: 1. Appearance (grooming, attire, apparent age) within normal limits: Yes 2. Thought content was organized and goal directed: Yes 3. Speech was coherent and unimpaired: Yes 4. Affect was appropriate and unremarkable: Yes 5. Demeanor was calm, with no signs of agitation or restlessness: Yes 6. Sleep was largely unimpaired and restful: Yes 7. No evidence of psychosis (hallucinations or delusions): Yes 8. Mood was normal: Yes Other Observations: RISK ASSESSMENT: Denies current suicidal ideation PLAN FOR FOLLOW-UP: Next session planned for: 05/13/23 at 11am /lili/ LUCY FORREST [employer] [facility] Signed: 04/13/2023 12:35 SHANELL SMITH [facility]
--- OUTSIDE RECORDS SUMMARY | 2024-03-23 01:10 | XMS_ITS | Encounter Summary ---
Author Name [facility] [place] Address [address] [place] [address] Care Team Providers Care Wet Wheeler Name Role Phone BALTA MICHEL Primary Care [...] O MEDEX BRONZ E Apr 12, 2014 [id number] [phone] WILLOREN, OM[place]IENT [place] SUPPLEMEN KATHRYN MEDEX BRONZ E Mar 12, 2013 [id number] WILLOREN, [place] KATHRYN MEDEX BRONZ E Mar 12, 2013 [id number] ALLI,BENITO OMAS PATIENT MEDICARE (WNR) MEDICARE (M) PART B Feb 10, 2013 PART B [id number] TX12 [phone] BENITO CARSON PATIENT MEDICARE (WNR) MEDICARE (M) PART A Feb 10, 2013 PART A [id number] TX12 [phone] BENITO CARSON PATIENT MEDICARE (WNR) MEDICARE (M) PART A Feb 10, 2013 PART A [id number] TX12 BENITO CARSON PATIENT MEDICARE (WNR) MEDICARE (M) PART B Feb 10, 2013 PART B [id number] TX12 BENITO CARSON PATIENT Selected Encounter This section includes the information on record at [place] for the Encounter. Date/Time Encounter Type Encounter Description Reason Pro vider Source Apr 21, 2023 01:08 PM Outpatient Encounter PRIMARY CARE/MEDICINE IHE Encounter Template Text not used by [place] Plan of Treatment: Future Appointments (+ 6 months) and Future Tests (+/- 45 days) The Plan of Treatment section includes future care activities for the patient from all [place] treatmentfacilities. This section includes future appointments and future orders which are active, pending or scheduled. Future Appointments This section includes appointments that were scheduled to occur 6 months from the date of the Encounter, up to a maximum of 20 appointments. The data comes from all [place] treatment facilities. Appointment Date/Time Appointment Type Appointme nt Facility Name Apr 28, 2023 02:00 PM [facility] Apr 28, 2023 02:15 PM [facility] Apr 30, 2023 10:15 AM [facility] May 03, 2023 08:30 AM [facility] May 06, 2023 09:30 AM [facility]IC[facility] May 07, 2023 10:15 AM [facility] May 07, 2023 10:30 AM [facility] May 13, 2023 11:00 AM AMBULATORY - PS[facility]RY [facility] May 14, 2023 09:15 AM [facility] May 14, 2023 09:30 AM [facility] May 17, 2023 10:10 AM [facility] [place] [facility] Jun 10, 2023 11:00 AM AMBULATORY - PS[facility]CHIATRY [facility] Jul 08, 2023 10:00 AM AMBULATORY - PS[facility]CHIATRY [facility] August 12, 2023 11:00 AM AMBULATORY - PS[facility]CHIATRY [facility] August 18, 2023 11:15 AM AMBULATORY - MEDICINE [facility] August 18, 2023 11:30 AM AMBULATORY - MEDICINE [facility] Sep 16, 2023 11:00 AM AMBULATORY - PS[facility]CHIATRY [facility] Sep 22, 2023 12:00 PM [facility] Lab Results: +/- 30 days of the encounter This section includes the Chemistry and Hematology Lab Results on record with [place] for the patient. Radiology Reports and Pathology Reports are provided separately, in subsequent sections. Lab Results This section contains the Chemistry/Hematology Results that were resulted 30 days before or 30 daysafter the date of the Encounter. Date/Time Source Result Type Result - Unit Interpretation Reference Range Comment Apr 28, 2023 01:39 PM [facility] MICROALBUMIN CREATININE RATIO PANEL Specimen Type: URINE No comment entered. Ordering Provider: JEAN MARIE MICHEL Report Released Date/Time: Apr 22, 2023 02:14 PM Reporting Lab: [facility] [address] [facility] [address] Performing Lab: [facility] [address] [facility] [address] MICROALBUMIN/C REATININE RATIO 10.6 mg/g 0-29.9 MICROALBUMIN,Q UANTITATIVE 1.6 mg/dL RR UNAVAIL CREATININE URINE 150.39 mg/dL Apr 28, 2023 01:39 PM [facility] BASIC METABOLIC PANEL (fasting) Specimen Type: SERUM No comment entered. Ordering Provider: JEAN MARIE MICHEL Report Released Date/Time: Apr 22, 2023 02:14 PM Reporting Lab: [facility] [address] [facility] [address] Performing Lab: [facility] [address] [facility] [address] UREA NITROGEN 22 mg/dL 7-25 GLUCOSE 81 mg/dL 65-100 SODIUM 137 mmol/L 135-145 POTASSIUM 4.1 mmol/L 3.5-5.0 CHLORIDE 103 mmol/L 100-110 CO2 23 meq/L 20-30 CREATININE, Serum 1.18 mg/dL 0.50-1.40 eGFR(CKD-EPI 2020) 64 mL/min >60 Apr 28, 2023 01:39 PM [facility] HEMOGLOBIN A1C PANEL Specimen Type: BLOOD Comment: [...] Apr 22, 2023 02:14 PM Reporting Lab: [address] [address] Performing Lab: [address] [address] HEMOGLOBIN A1C 5.6 4.0-5.6 Apr 28, 2023 01:39 PM [facility] LIPID PANEL FASTING Specimen Type: SERUM No comment entered. Ordering Provider: JEAN MARIE MICHEL Report Released Date/Time: Apr 22, 2023 02:14 PM Reporting Lab: [address] [address] Performing Lab: [address] [address] CHOLESTEROL 83 mg/dL TRIGLYCERIDE 57 mg/dL 0-150 LDL calculated 31 mg/dL 0-129 CHOL/HDL 2.0 HDL CHOLESTEROL 41 mg/dL 40-60 Apr 28, 2023 01:39 PM [facility] LIVER FUNCTION Specimen Type: SERUM No comment entered. Ordering Provider: JEAN MARIE MICHEL Report Released Date/Time: Apr 22, 2023 02:14 PM Reporting Lab: [address] [address] Performing Lab: [facility] [address] [address] PROTEIN,TOTAL 6.5 g/dL 6.0-8.3 ALBUMIN 3.8 g/dL 3.5-5.0 ALKALINE PHOSPHATASE 109 U/L 40-150 AST 35 U/L H 5-34 ALT 36 U/L BILIRUBIN, TOTAL 1.0 mg/dL 0.2-1.2 Apr 28, 2023 01:39 PM [facility] TSH Specimen Type: SERUM No comment entered. Ordering Provider: JEAN MARIE MICHEL Report Released Date/Time: Apr 22, 2023 02:14 PM Reporting Lab: [address] [address] Performing Lab: [address] [address] TSH 2.38 u[IU]/mL 0.35-5.00 Apr 28, 2023 01:39 PM [facility] CBC AND DIFF (AUTO) Specimen Type: BLOOD No comment entered. Ordering Provider: JEAN MARIE MICHEL Report Released Date/Time: Apr 22, 2023 02:14 PM Reporting Lab: [address] [address] Performing Lab: [address] [address] WBC 4.69 10*3/uL 4.50-11.00 RBC 4.53 10*6/uL 4.23-5.66 HGB 12.7 g/dL L 12.8-17 HCT 38.4 L 39.2-50.4 MCV 84.8 fL 82-99 MCHC 33.1 g/dL 30.8-35.1 PLT 178 10*3/uL 140-360 RDW-CV 13.2 12.0-16.0 Rains, Abs 0.47 10*3/uL 0.30-1.10 MCH 28.0 pg 26.2-32.6 Neut % 51.6 43.7-75.8 Lymph % 34.8 14.0-42.3 Rains % 10.0 5.1-13.7 Eos % 2.8 0.4-6.8 Baso % 0.6 0.1-2.0 Neut, Abs 2.42 10*3/uL 2.20-7.60 Lymph, Abs 1.63 10*3/uL 1.00-3.20 Eos, Abs 0.13 10*3/uL 0.03-0.44 Baso, Abs 0.03 10*3/uL 0.01-0.13 Immature Gran % 0.2 0.0-0.7 Immature Gran, Abs 0.01 10*3/uL 0.00-0.06 Encounter Notes: All associated encounter notes This section contains the clinical notes associated to the Encounter. Date/Time Encounter Note(s) Provider Source Apr 21, 2023 01:21 PM ADDENDUM: LOCAL TITLE: Addendum STANDARD TITLE: ADDENDUM DATE OF NOTE: APR 21, 2023@13:21:32 ENTRY DATE: APR 21, 2023@13:21:33 AUTHOR: MIGUEL HEAD EXP COSIGNER: URGENCY: STATUS: COMPLETED Please book an appt. with PCP for eval in next available slot. thx /lili/ DESIREE HAWKINS,RN-BC REGISTERED NURSE (RN) Signed: 04/21/2023 13:22 Receipt Acknowledged By: 04/21/2023 13:27 /es/ MAYA NAVARRO === --- Original Document --- 04/21/23 PRIMARY CARE SECURE MESSAGING: ------Original Message ------ Sent: 04/21/2023 11:51 AM ET From: PETTY CARSON To: Kilo MICHEL_PRIMARY CARE_SPOPC Subject: General:recent growth on my back I have recently developed a growth on my back. It started as an itchy spot, but is growing and is becoming uncomfortable lying on by back and with clothing. In the past I have had insect bites, and a history of fistula. Should I make an appointment with you or go to [place] for same day care. Currently it is not an emergency, but it is growing. /marito NAVARRO Signed: 04/21/2023 13:08 Receipt Acknowledged By: * AWAITING SIGNATURE * MAYDA GALLEGOS 04/21/2023 13:21 /DESIREE Henderson,RN-BC REGISTERED NURSE (RN) 04/21/2023 ADDENDUM STATUS: COMPLETED Weight Training Instructor lvm for to call back to schedule appt. /marito NAVARRO Signed: 04/21/2023 13:27 MIGUEL HEAD [facility] Apr 21, 2023 01:08 PM PRIMARY CARE SECUR E MESSAGING: LOCAL TITLE: PRIMARY CARE SECURE MESSAGING STANDARD TITLE: PRIMARY CARE SECURE MESSAGING DATE OF NOTE: APR 21, 2023@13:08 ENTRY DATE: APR 21, 2023@13:08:50 AUTHOR: MAYA MUÑOZ EXP COSIGNER: URGENCY: STATUS: COMPLETED PRIMARY CARE SECURE MESSAGING Has ADDENDA ------Original Message ------ Sent: 04/21/2023 11:51 AM ET From: PETTY CARSON To: Kilo MICHEL_PRIMARY CARE_SPO Subject: General:recent growth on my back I have recently developed a growth on my back. It started as an itchy spot, but is growing and is becoming uncomfortable lying on by back and with clothing. In the past I have had insect bites, and a history of fistula. Should I make an appointment with you or go to [facility] for same day care. Currently it is not an emergency, but it is growing. /marito NAVARRO Signed: 04/21/2023 13:08 Receipt Acknowledged By: 04/21/2023 15:45 /lili/ MAYDA GALLEGOS LPN LPN 04/21/2023 13:21 /DESIREE Henderson,RN-BC REGISTERED NURSE (RN) 04/21/2023 ADDENDUM STATUS: COMPLETED Please book an appt. with PCP for eval in next available slot. ayan /lili/ DESIREE HAWKINS,RN-BC REGISTERED NURSE (RN) Signed: 04/21/2023 13:22 Receipt Acknowledged By: 04/21/2023 13:27 /marito NAVARRO 04/21/2023 ADDENDUM STATUS: COMPLETED Weight Training Instructor lvm for to call back to schedule appt. /lili/ MAYA NAVARRO Signed: 04/21/2023 13:27 MAYA UMÑOZ [facility]
--- OUTSIDE RECORDS SUMMARY | 2024-03-23 01:10 | XMS_ITS ---
Author Name [facility] [place] Address [address] [place] [address] Care Team Providers Care Sharepoint Analyst Name Role Phone BALTA MICHEL Primary Care [...] O MEDEX BRONZ E Apr 12, 2014 [id number] LOREN, OMAS PATIENT [place] SU[place] KATHRYN MEDEX BRONZ E Mar 12, 2013 [id number] ALLI, OM[place] KATHRYN MEDEX BRONZ E Mar 12, 2013 [id number] ALLI,BENITO OMAS PATIENT MEDICARE (WNR) MEDICARE (M) PART A Feb 10, 2013 PART A [id number] [id number] BENITO CARSON PATIENT MEDICARE (WNR) MEDICARE (M) PART B Feb 10, 2013 PART B [id number] TX12 [phone] BENITO CARSON PATIENT MEDICARE (WNR) MEDICARE (M) PART A Feb 10, 2013 PART A [id number] [id number] BENITO CARSON PATIENT MEDICARE (WNR) MEDICARE (M) PART B Feb 10, 2013 PART B [id number] [id number] BENITO CARSON PATIENT Selected Encounter This section includes the information on record at [place] for the Encounter. Date/Time Encounter Type Encounter Description Reason Pro vider Source Apr 28, 2023 01:46 PM Outpatient Encounter PRIMARY CARE/MEDICINE IHE Encounter Template Text not used by [place] Plan of Treatment: Future Appointments (+ 6 months) and Future Tests (+/- 45 days) The Plan of Treatment section includes future care activities for the patient from all [place] treatmentfacilities. This section includes future appointments and future orders which are active, pending or scheduled. Future Appointments This section includes appointments that were scheduled to occur 6 months from the date of the Encounter, up to a maximum of 20 appointments. The data comes from all [place] treatment facilities. Appointment Date/Time Appointment Type Appointme nt Facility Name Apr 30, 2023 10:15 AM [facility] May 03, 2023 08:30 AM [facility] May 06, 2023 09:30 AM [facility] May 07, 2023 10:15 AM [facility] May 07, 2023 10:30 AM [facility] May 13, 2023 11:00 AM AMBULATORY - PSYCHIATRY [facility] May 14, 2023 09:15 AM [facility] May 14, 2023 09:30 AM [facility] May 17, 2023 10:10 AM [facility] Jun 10, 2023 11:00 AM AMBULATORY - PSYCHIATRY [facility] Jul 08, 2023 10:00 AM AMBULATORY - PSYCHIATRY [facility] August 12, 2023 11:00 AM AMBULATORY - PSYCHIATRY [facility] August 18, 2023 11:15 AM AMBULATORY - MEDICINE [facility] August 18, 2023 11:30 AM AMBULATORY - MEDICINE [facility] Sep 16, 2023 11:00 AM AMBULATORY - PSYCHIATRY [facility] Sep 22, 2023 12:00 PM [facility] Lab Results: +/- 30 days of the encounter This section includes the Chemistry and Hematology Lab Results on record with [place] for the patient. Radiology Reports and Pathology Reports are provided separately, in subsequent sections. Lab Results This section contains the Chemistry/Hematology Results that were resulted 30 days before or 30 daysafter the date of the Encounter. Date/Time Source Result Type Result - Unit Interpretation Reference Range Comment Apr 28, 2023 01:39 PM [facility] MICROALBUMIN CREATININE RATIO PANEL Specimen Type: URINE No comment entered. Ordering Provider: JEAN MARIE MICHEL Report Released Date/Time: Apr 22, 2023 02:14 PM Reporting Lab: [facility] [address] [facility] [address] Performing Lab: [facility] [address] [facility] [address] MICROALBUMIN/C REATININE RATIO 10.6 mg/g 0-29.9 MICROALBUMIN,Q UANTITATIVE 1.6 mg/dL RR UNAVAIL CREATININE URINE 150.39 mg/dL Apr 28, 2023 01:39 PM [facility] BASIC METABOLIC PANEL (fasting) Specimen Type: SERUM No comment entered. Ordering Provider: JEAN MARIE MICHEL Report Released Date/Time: Apr 22, 2023 02:14 PM Reporting Lab: [facility] [address] [facility] [address] Performing Lab: [facility] [address] [facility] [address] UREA NITROGEN 22 mg/dL 7-25 GLUCOSE 81 mg/dL 65-100 SODIUM 137 mmol/L 135-145 POTASSIUM 4.1 mmol/L 3.5-5.0 CHLORIDE 103 mmol/L 100-110 CO2 23 meq/L 20-30 CREATININE, Serum 1.18 mg/dL 0.50-1.40 eGFR(CKD-EPI 2020) 64 mL/min >60 Apr 28, 2023 01:39 PM [facility] HEMOGLOBIN A1C PANEL Specimen Type: BLOOD [...] Apr 22, 2023 02:14 PM Reporting Lab: [address] [address] Performing Lab: [address] [address] HEMOGLOBIN A1C 5.6 4.0-5.6 Apr 28, 2023 01:39 PM [facility] LIPID PANEL FASTING Specimen Type: SERUM No comment entered. Ordering Provider: JEAN MARIE MICHEL Report Released Date/Time: Apr 22, 2023 02:14 PM Reporting Lab: [address] [address] Performing Lab: [address] [address] CHOLESTEROL 83 mg/dL TRIGLYCERIDE 57 mg/dL 0-150 LDL calculated 31 mg/dL 0-129 CHOL/HDL 2.0 HDL CHOLESTEROL 41 mg/dL 40-60 Apr 28, 2023 01:39 PM [facility] LIVER FUNCTION Specimen Type: SERUM No comment entered. Ordering Provider: JEAN MARIE MICHEL Report Released Date/Time: Apr 22, 2023 02:14 PM Reporting Lab: [address] [address] Performing Lab: [address] [address] PROTEIN,TOTAL 6.5 g/dL 6.0-8.3 ALBUMIN 3.8 g/dL 3.5-5.0 ALKALINE PHOSPHATASE 109 U/L 40-150 AST 35 U/L H 5-34 ALT 36 U/L BILIRUBIN, TOTAL 1.0 mg/dL 0.2-1.2 Apr 28, 2023 01:39 PM [facility] TSH Specimen Type: SERUM No comment entered. Ordering Provider: JEAN MARIE MICHEL Report Released Date/Time: Apr 22, 2023 02:14 PM Reporting Lab: [address] [address] Performing Lab: [address] [address] TSH 2.38 u[IU]/mL 0.35-5.00 Apr 28, 2023 01:39 PM [facility] CBC AND DIFF (AUTO) Specimen Type: BLOOD No comment entered. Ordering Provider: JEAN MARIE MICHEL Report Released Date/Time: Apr 22, 2023 02:14 PM Reporting Lab: [facility] [address] [facility] [address] Performing Lab: [address] [address] WBC 4.69 10*3/uL 4.50-11.00 RBC 4.53 10*6/uL 4.23-5.66 HGB 12.7 g/dL L 12.8-17 HCT 38.4 L 39.2-50.4 MCV 84.8 fL 82-99 MCHC 33.1 g/dL 30.8-35.1 PLT 178 10*3/uL 140-360 RDW-CV 13.2 12.0-16.0 Victoria, Abs 0.47 10*3/uL 0.30-1.10 MCH 28.0 pg 26.2-32.6 Neut % 51.6 43.7-75.8 Lymph % 34.8 14.0-42.3 Victoria % 10.0 5.1-13.7 Eos % 2.8 0.4-6.8 [...] Encounter. Date/Time Encounter Note(s) Provider Source Apr 28, 2023 01:46 PM PRIMARY CARE NOTE: LOCAL TITLE: WALK-IN NOTE PRIMARY CARE (T) STANDARD TITLE: PRIMARY CARE NOTE DATE OF NOTE: APR 28, 2023@13:46 ENTRY DATE: APR 28, 2023@13:46:20 AUTHOR: HARRISON MALHOTRA EXP COSIGNER: URGENCY: STATUS: COMPLETED <====Click to Start Advanced Medical Support presents to the Primary Care clinic with the following request: [ ]Medication Renewal/Refill [ ]Consultation with Team RN [ X ]Symptomsbump on back [ ]Other The states they are: [ X ]Waiting [ ]Not Waiting No Walk in visit scheduled with PACT Nurse [ X ] At this encounter the [place]'s demographics were verified. [ X ] At this encounter the 's Insurance information was verified. [ X ] At this encounter the below scheduled visits for the were discussed and appointment reminder card was offered. Future appointments: 05/03/2023 08:30 CWM/SO/PACT 9 05/13/2023 11:00 CWM/SO/MHC/LUIS Audrey comes into the clinic for sick call with complaints of a oozing bump on his back. /lili/ HARRISON NAVARRO Signed: 04/28/2023 13:48 Receipt Acknowledged By: 04/28/2023 13:58 /es/ YANETH PAREKH APRN-Jeanette CERTIFIED NURSE PRACTITIONER 04/28/2023 14:17 /es/ MAYDA GALLEGOS LPN LPN 04/28/2023 14:35 /es/ DL [place] RN PRIMARY CARE RN 04/28/2023 13:54 /es/ ANNALISA HAWKINSN,RN-BC REGISTERED NURSE (RN) HARRISON MALHOTRA
--- OUTSIDE RECORDS SUMMARY | 2024-03-23 01:10 | XMS_ITS | Continuity of Care Document ---
Author Name [facility] Organization [facility] Care Team Providers Care Mailing Machine Helper Name Role Phone [facility] Unavailable Unavailable Problems Combined list of problems from Department of Defense and Veterans Affairs facilities. It does not include entries that were removed or entered in error. Problem Status Onset Date Problem Type Date of Resolution Comments Source Anorectal fistula Active Condition [facility] Anxiety State NEC (ICD-9-CM 300.09) Active Condition [facility] Artificial knee joint present Active Condition [facility] Benign hypertension (SNOMED CT 22143767) Active Condition Feb 14, 2020 Entered By: YELENA MICHEL Comment: on HCTZ / lisinopril [place] Bereavement * (ICD-9-CM V62.82) Active Condition [facility] Co-management Active Condition August Entered By: YELENA MICHEL Comment: Dr. León, [facility] ([facility] primary) [facility] Coronary artery disease Active Condition [facility] History of coronary artery disease with stent placement Active Condition Feb 14, 2020 Entered By: YELENA MICHEL Comment: on ASA / statinNov 2019 Entered By: YELENA MICHEL Comment[facility] Entered By: YELENA MICHEL Comment: cartoid u/s 02/2021 - no hemodynamically sifnidicant disease [facility] Hyperlipidemia (SNOMED CT 07245911) Active Condition Feb 14, 2020 Entered By: YELENA MICHEL Comment: on high intensity atorvastatin / zetia [place] Hypothyroidism (SNOMED CT 61117359) Active Condition May 08, 2022 Entered By: YELENA MICHEL Comment: levothyroxine 125mcg [place] Knee Joint replacement Status (Prosthetic or Artificial Device) Active Condition [facility] Major depressive disorder Active Condition [facility] Normocytic anemia Active Condition Jul 30, 2022 Entered By: YELENA MICHEL Comment: folllowed by [facility] 2022 Entered By: YELENA MICHEL Comment: hgb 11.9 (May 2022) [place] Osteoarthritis (SNOMED CT 246245300) Active Condition [facility] Osteoporosis Active Condition May 08, 2022 Entered By: YELENA MICHEL Comment: DEXA June 2021 [place] Pain in right foot Active Condition August 15, 2019 Entered By: YELENA MICHEL Comment: moves around [facility] Posttraumatic stress disorder Active Condition Sep 25, 2014 Entered By: JIMI HASTINGS Comment: Per 09/13/14 C&P assessment [facility] Rotator cuff impingement syndrome Active Condition [facility] Screening for Malignant Neoplasms of colon Active Condition Jul 04, 2012 Entered By: ALEXSANDRA CARR Comment: 01/16/2007 Within normal limits no f/u mentioned in report [place] Secondary osteoarthritis (SNOMED CT 104436248) Active Condition [place] Tinnitus * (ICD-9-CM 388.30) Active Condition [place] Adjustment Disorder with mixed Anxiety and depressed mood (ICD-9-CM 309.28) Inactive Condition 12/14/2012 [facility] Diagnosis: ICD-10-CM F43.12 Post-traumatic stress disorder, chronic Active Diagnosis [facility] Diagnosis: ICD-10-CM Z23 Encounter for immunization Active Diagnosis [facility] Diagnosis: ICD-10-CM E66.3 Overweight Active Diagnosis [facility] (6[facility]) Diagnosis: ICD-10-CM E66.9 Obesity, unspecified Active Diagnosis [facility] (6[facility]) Diagnosis: ICD-10-CM Z00.01 Encounter for general adult medical exam w abnormal findings Active Diagnosis [facility] Diagnosis: ICD-10-CM M79.674 Pain in right toe(s) Active Diagnosis [facility] Diagnosis: ICD-10-CM M79.644 Pain in right finger(s) Active Diagnosis [facility] Diagnosis: ICD-10-CM L02.212 Cutaneous abscess of back [any part, except buttock] Active Diagnosis [facility] Diagnosis: ICD-10-CM L72.3 Sebaceous cyst Active Diagnosis [facility] Diagnosis: ICD-10-CM L02.91 Cutaneous abscess, unspecified Active Diagnosis [place] Diagnosis: ICD-10-CM E78.00 Pure hypercholesterol emia, unspecified Active Diagnosis [facility] Medications Combined list of outpatient medications from Department of Defense and Veterans Affairs facilities.Medications provided include 1) outpatient medications from the last 15 months, and 2) patient-reported medications. Medication Details Route Status Patient Instructions Prescription Expires Prescription Number Last Dispense Date Ordering Provider Order Date Order Qty Source ALIROCUMAB 75MG/ML INJ,PEN,1ML INJECT 75MG (1ML) SUBCUTAN EOUSLY EVERY 2 WEEKS FOR HIGH CHOLESTE ROL SUBCUT ANEOUS ACTIVE 10/13/2024 [id number] MARILU APOLINARI O 2023 2 [place] ALIROCUMAB 75MG/ML INJ,PEN,1ML INJECT 75MG (1ML) SUBCUTAN EOUSLY EVERY 2 WEEKS FOR HIGH CHOLESTE ROL SUBCUT ANEOUS DISCONT INUED 09/17/2023 [id number] CORNELIA JIMENES 2022 2 IELD ASPIRIN 81MG TAB,EC TAKE ONE TABLET BY MOUTH DAILY ORAL ACTIVE ALEXSANDRA CARR 2015 [place] ASPIRIN 81MG TAB,EC TAKE ONE TABLET BY MOUTH ONCE DAILY ORAL ACTIVE DIONCIIO BEYER 2015 [facility] ATORVASTATI N CA 80MG TAB TAKE ONE TABLET BY MOUTH EVERY EVENING ORAL ACTIVE JACQUELYN LEVY 2015 [facility] CEPHALEXIN 500MG CAP TAKE ONE CAPSULE BY MOUTH THREE TIMES A DAY FOR INFECTIO N ORAL DISCONT INUED 05/28/2023 [id number] Rahul PAREKH 2023 21 [place] CEPHALEXIN 500MG CAP TAKE ONE CAPSULE BY MOUTH THREE TIMES A DAY FOR INFECTIO N ORAL 06/02/2023 [id number] 4 MARILU APOLINARI O 2023 21 [place] DICLOFENAC NA 50MG TAB,EC TAKE ONE TABLET BY MOUTH TWICE DAILY NEEDED FOR PAIN/INF LAMMATIO N ORAL ACTIVE 08/18/2024 [id number] 4 Rahul PAREKH 2023 180 [place] DICLOFENAC NA 50MG TAB,EC TAKE ONE TABLET BY MOUTH TWICE DAILY NEEDED FOR PAIN/INF LAMMATIO N ORAL DISCONT INUED 02/05/2024 [id number] 4 MARILURICK BETH O 2022 90 [place] EZETIMIBE 10MG TAB TAKE ONE TABLET BY MOUTH ONCE DAILY TO LOWER CHOLESTE ROL ORAL ACTIVE 11/23/2024 [id number] 4 RICK MICHEL O 2023 90 [place] EZETIMIBE 10MG TAB TAKE ONE TABLET BY MOUTH ONCE DAILY TO LOWER CHOLESTE ROL ORAL DISCONT INUED 09/17/2023 [id number] 4 CORNELIA JIMENES R 2022 90 [place] HYDROCHLORO THIAZIDE 25MG TAB TAKE ONE TABLET BY MOUTH ONCE DAILY FOR HIGH BLOOD PRESSURE ORAL ACTIVE 12/17/2024 [id number] 4 RICK MICHEL O 2023 90 [place] HYDROCHL[place]O THIAZIDE 25MG TAB TAKE ONE TABLET BY MOUTH ONCE DAILY FOR HIGH BLOOD PRESSURE ORAL DISCONT INUED 10/05/2023 [id number] 4 LESLY MICHELARI O 2022 90 [facility] IELD HYDROPHILIC (EQV EUCERIN) CREAM,TOP APPLY A LIBERAL AMOUNT TOPICALL Y ONCE DAILY FOR DRY SKIN TOPICA L ACTIVE 05/03/2024 [id number] MARILURICK O 2023 454 [place] LEVOTHYROXI NE NA 125MCG TAB (SYNTHROID) TAKE ONE TABLET BY MOUTH EVERY MORNING 30 MINUTES BEFORE BREAKFAS T FOR THYROID - TAKE ON AN EMPTY STOMACH WITH A FULL GLASS OF WATER ORAL ACTIVE 03/19/2025 [id number] 4 RA AUGUSTINE PERSAUD 2023 90 [place] LEVOTHYROXI NE NA 125MCG TAB (SYNTHROID) TAKE ONE TABLET BY MOUTH EVERY MORNING 30 MINUTES BEFORE BREAKFAS T FOR THYROID - TAKE ON AN EMPTY STOMACH WITH A FULL GLASS OF WATER ORAL DISCONT INUED 05/10/2024 [id number] 4 MARILU, APOLINARI O 2023 90 [place] LEVOTHYROXI NE NA 125MCG TAB (SYNTHROID) TAKE ONE TABLET BY MOUTH EVERY MORNING 30 MINUTES BEFORE BREAKFAS T FOR THYROID - TAKE ON AN EMPTY STOMACH WITH A FULL GLASS OF WATER ORAL DISCONT INUED 03/26/2023 [id number] 3 MARILU, APOLINARI O 2021 90 [place] LEVOTHYROXI NE NA 125MCG TAB (SYNTHROID) TAKE ONE TABLET BY MOUTH EVERY MORNING ORAL ACTIVE JACQUELYN LEVY S 2015 [facility] LISINOPRIL 10MG TAB TAKE ONE TABLET BY MOUTH ONCE DAILY TO CONTROL BLOOD PRESSURE ORAL 03/15/2024 [id number] 4 MARILU, APOLINARI O 2022 90 [place] LISINOPRIL 10MG TAB TAKE ONE TABLET BY MOUTH ONCE DAILY ORAL ACTIVE ANNA LEVYISTIN S 2015 [facility] ROSUVASTATI N CA 40MG TAB TAKE ONE TABLET BY MOUTH ONCE DAILY FOR CHOLESTE ROL ORAL ACTIVE 02/22/2025 [id number] MARILU, APOLINARI O 2023 90 [place] ROSUVASTATI N CA 40MG TAB TAKE ONE TABLET BY MOUTH ONCE DAILY FOR CHOLESTE ROL ORAL 09/17/2023 [id number] 4 CORNELIA JIMENES 2022 90 [place] Allergies, Adverse Reactions, Alerts Combined list of allergies from Department of Defense and Veterans Affairs facilities. It does not include entries that were removed or entered in error. Substance Category Reaction Severity Reaction type Status Date Reported Comments Source TRAMADOL Propensity to adverse reactions to drug (finding) Delirium active 8 [facility] Immunizations Combined list of available immunizations from the Department of Defense and Veterans Affairs facilities. Immunization Series Date Given Administered By Site Reaction Lot Number CVX Code Drug Ems Driver Status Comments Source COVID-19 (MODERNA), MRNA, LNP-S, PF, 50 MCG/0.5 ML (AGES 12+ YEARS) 2023 BECCA GAR R RIGHT DELTO ID [id number] 312 complet ed [place] INFLUENZA, HIGH-DOSE, TRIVALENT, PF 2023 BECCA GAR E R LEFT DELTO ID [id number] 135 complet ed [place] INFLUENZA, HIGH-DOSE, QUADRIVALENT 2022 LAURA HEAD RIGHT DELTO ID [id number] 197 complet ed [place] PNEUMOCOCCAL CONJUGATE PCV20, POLYSACCHARID E [id number] CONJUGATE, ADJUVANT, PF 2022 LAURA HEAD LEFT DELTO ID [id number] 216 complet ed [facility] [place] COVID-19 (PFIZER), MRNA, LNP-S, PF, ANTONIO-SUCROSE, 30 MCG/0.3 ML (AGES 12+ YEARS) 1 2022 309 complet ed [facility] RESPIRATORY SYNCYTIAL VIRUS (RSV) MAB, UNSPECIFIED 2022 315 complet ed [facility] COVID-19 (MODERNA), MRNA, LNP-S, BIVALENT BOOSTER, PF, 50 MCG/0.5 ML OR 25MCG/0.25 ML DOSE 1 2022 EVAN AMIN LEFT DELTO ID [id number] 229 complet ed [facility] IELD INFLUENZA VACCINE, QUADRIVALENT, ADJUVANTED 2022 CRESCENCIO EVANS LEFT DELTO ID [id number] 205 complet ed Lot [id number] Expires August 27, 2022 [facility] I[place] COVID-19 (PFIZER), MRNA, LNP-S, PF, 30 MCG/0.3 ML DOSE 3 2020 208 complet ed [facility] INFLUENZA VACCINE, QUADRIVALENT, ADJUVANTED 2020 205 complet ed [facility] IELD COVID-19 (MODERNA), MRNA, LNP-S, PF, 100 MCG/0.5 ML DOSE 2 2020 207 complet ed MOD; [id number]; 1 [facility] [place] COVID-19 (MODERNA), MRNA, LNP-S, PF, 100 MCG/0.5 ML DOSE 1 2020 207 complet ed MOD; [id number]; 1 [place] INFLUENZA, HIGH-DOSE, QUADRIVALENT 2019 197 complet ed [facility] INFLUENZA, UNSPECIFIED FORMULATION 2019 88 complet ed [facility] INFLUEN[facility], SEASONAL, INJECTABLE 2017 141 complet ed [facility] ZOSTER RECOMBINANT 2 2017 187 complet ed [place] ZOSTER RECOMBINANT 1 2017 187 complet ed [place] INFLUENZA, SEASONAL, INJECTABLE 2016 141 complet ed [facility] FLU,3 YRS (HISTORICAL) 2015 88 complet ed Site: Left Deltoid [place] PNEUMOCOCCAL POLYSACCHARID E PPV23 2015 33 complet ed [place] DTAP, UNSPECIFIED FORMULATION 2015 107 complet ed [place] FLU,3 YRS (HISTORICAL) 2014 88 complet ed Site: Left Deltoid [place] PNEUMOCOCCAL CONJUGATE PCV 13 2014 133 complet ed [place] ZOSTER (HISTORICAL) 2013 121 complet ed [place] FLU,3 YRS (HISTORICAL) 2013 88 complet ed [facility] FLU,3 YRS (HISTORICAL) 2013 88 complet ed [facility] FLU,3 YRS (HISTORICAL) 2012 88 complet ed [facility] FLU,3 YRS (HISTORICAL) 2011 88 complet ed [facility] Results Combined list of recent chemistry, hematology and other laboratory results from Department of Defense and Veterans Affairs, ranging from 15 months to all on record, depending upon the facility. Order Name Results Value Reference Range Date Interpretation Specimen Comments Source CALCIUM CALCIUM [MASS/VOLUM E] IN SERUM OR PLASMA 8.8 mg/dL 8.5 - 10.2 10/31 Specimen Type: SERUM No comment entered. Ordering Provider: JOSE MICHEL Report Released Date/Time: Nov 01, 2023 11:43 AM Reporting Lab: [facility] [address] [address] Performing Lab: [facility] [address] [address] [facility] MAGNESIUM MAGNESIUM [MASS/VOLUM E] IN SERUM OR PLASMA 2.1 mg/dL 1.6 - 2.6 10/31 Specimen Type: SERUM No comment entered. Ordering Provider: JOSE MICHEL Report Released Date/Time: Nov 01, 2023 11:43 AM Reporting Lab: [facility] [address] [address] Performing Lab: [address] [address] [facility] VITAMIN D 25-OH (Therapy monitor) 25-HYDROXYV ITAMIN D3 [MASS/VOLUM E] IN SERUM OR PLASMA 61 ng/mL 30 - 100 10/31 Specimen Type: SERUM Comment: Vitamin D, 25-Hydroxy reports concentrati ons of two common forms, 25-OHD2 and 25-OHD3. 25-OHD3 indicates both endogenous production and supplementa tion. 25-OHD2 is an indicator of exogenous sources such as diet or supplementa tion. Therapy is based on measurement of Total 25-OHD, with levels <20 ng/mL indicative of Vitamin D deficiency, while levels between 20 ng/mL and 30 ng/mL suggest insufficien cy. Optimal levels are > or = 30 ng/mL. For additional information , please refer to http://educ ation.[employer] .com/faq/FA Q199 (This link is being provided for information al/ educational purposes only.) This test was developed and its analytical performance characteris tics have been determined by [employer] [place], [place]. It has not been cleared or approved by the U.S. Food and Drug Administrat ion. This assay has been validated pursuant to the CLIA regulations and is used for clinical purposes. This test was developed and its analytical performance characteris tics have been determined by [employer] [place], [place]. It has not been cleared or approved by the U.S. Food and Drug Administrat ion. This assay has been validated pursuant to the CLIA regulations and is used for clinical purposes. Test Performed by [facility], [place], [address] [place], [place] Mike Porter M.D., Ph.D., Director of Laboratorie s , CLIA [id number] TEST PERFORMED AT: , Ordering Provider: JOSE MICHEL Report Released Date/Time: Nov 01, 2023 11:43 AM Reporting Lab: [facility] [address] [address] Performing Lab: [facility] [id number] [place] [address] VITAMIN D 25-OH (Therapy monitor) 25-HYDROXYV ITAMIN D3 [MASS/VOLUM E] IN SERUM OR PLASMA 61 ng/mL 10/31 Specimen Type: SERUM Comment: Vitamin D, 25-Hydroxy reports concentrati ons of two common forms, 25-OHD2 and 25-OHD3. 25-OHD3 indicates both endogenous production and supplementa tion. 25-OHD2 is an indicator of exogenous sources such as diet or supplementa tion. Therapy is based on measurement of Total 25-OHD, with levels <20 ng/mL indicative of Vitamin D deficiency, while levels between 20 ng/mL and 30 ng/mL suggest insufficien cy. Optimal levels are > or = 30 ng/mL. For additional information , please refer to http://educ ation.[employer] .[employer]/faq/FA Q199 (This link is being provided for information al/ educational purposes only.) This test was developed and its analytical performance characteris tics have been determined by [employer] [place], [place]. It has not been cleared or approved by the U.S. Food and Drug Administrat ion. This assay has been validated pursuant to the CLIA regulations and is used for clinical purposes. This test was developed and its analytical performance characteris tics have been determined by [employer] [place], [place]. It has not been cleared or approved by the U.S. Food and Drug Administrat [employer]. This assay has been validated pursuant to the CLIA regulations and is used for clinical purposes. Test Performed by [facility], [employer] [place], [address] [place], [place] Mike Porter M.D., Ph.D., Director of Laboratorie s , CLIA [id number] TEST PERFORMED AT: , Ordering Provider: JOSE MICHEL Report Released Date/Time: Nov 01, 2023 11:43 AM Reporting Lab: [facility] [address] [address] Performing Lab: [facility] [address] [address] [facility] VITAMIN D 25-OH (Therapy monitor) CALCIFEROL (VIT D2) [MASS/VOLUM E] IN SERUM OR PLASMA <4ng/m L 10/31 Specimen Type: SERUM Comment: Vitamin D, 25-Hydroxy reports concentrati ons of two common forms, 25-OHD2 and 25-OHD3. 25-OHD3 indicates both endogenous production and supplementa tion. 25-OHD2 is an indicator of exogenous sources such as diet or supplementa tion. Therapy is based on measurement of Total 25-OHD, with levels <20 ng/mL indicative of Vitamin D deficiency, while levels between 20 ng/mL and 30 ng/mL suggest insufficien cy. Optimal levels are > or = 30 ng/mL. For additional information , please refer to http://educ ation.[employer] .com/faq/FA Q199 (This link is being provided for information al/ educational purposes only.) This test was developed and its analytical performance characteris tics have been determined by [employer] [place], [place]. It has not been cleared or approved by the U.S. Food and Drug Administrat [employer]. This assay has been validated pursuant to the CLIA regulations and is used for clinical purposes. This test was developed and its analytical performance characteris tics have been determined by [employer] [place]. It has not been cleared or approved by the U.S. Food and Drug Administrat ion. This assay has been validated pursuant to the CLIA regulations and is used for clinical purposes. Test Performed by [facility] [place], [facility], [address] [place] [address] Mike Porter M.D., Ph.D., Director of Laboratorie s , CLIA [id number] TEST PERFORMED AT: , Ordering Provider: JOSE MICHEL Report Released Date/Time: Nov 01, 2023 11:43 AM Reporting Lab: [facility] [address] [address] Performing Lab: [facility] [address] [facility] FERRITIN FERRITIN [MASS/VOLUM E] IN SERUM OR PLASMA 84 ng/mL 20 - 300 10/27 Specimen Type: SERUM No comment entered. Ordering Provider: JOSE MICHEL Report Released Date/Time: Oct 21, 2023 02:23 PM Reporting Lab: [facility] [address] [facility] [address] Performing Lab: [facility] [address] [address] [facility] FOLATE (WROX) FOLATE [MASS/VOLUM E] IN SERUM OR PLASMA >20.00 ng/mL 5.2 10/27 Specimen Type: SERUM No comment entered. Ordering Provider: JOSE MICHEL Report Released Date/Time: Oct 21, 2023 02:23 PM Reporting Lab: [facility] [address] [facility] [address] Performing Lab: [facility] [address] [address] [facility] IRON & TIBC PANEL IRON BINDING CAPACITY [MASS/VOLUM E] IN SERUM OR PLASMA 347 ug/dL 204 - 475 10/27 Specimen Type: SERUM No comment entered. Ordering Provider: JOSE MICHEL Report Released Date/Time: Oct 21, 2023 02:23 PM Reporting Lab: [facility] [address] [facility] [address] Performing Lab: [facility] [place] [facility] [address] [facility] [address] [facility] IRON & TIBC PANEL IRON [MASS/VOLUM E] IN SERUM OR PLASMA 101 ug/dL 40 - 160 10/27 Specimen Type: SERUM No comment entered. Ordering Provider: JOSE MICHEL Report Released Date/Time: Oct 21, 2023 02:23 PM Reporting Lab: [facility] [place] [facility] [address] [facility] [address] Performing Lab: [facility] [place] [facility] [address] [facility] [address] [facility] IRON & TIBC PANEL IRON/IRON BINDING CAPACITY.TO KATHRYN [MASS RATIO] IN SERUM OR PLASMA 29.1 20.0 - 50.0 10/27 Specimen Type: SERUM No comment entered. Ordering Provider: JOSE MICHEL Report Released Date/Time: Oct 21, 2023 02:23 PM Reporting Lab: [facility] [place] [facility] [address] [facility] [address] Performing Lab: [facility] [place] [facility] [address] [facility] [address] [facility] [place] [facility] VITAMIN B12 COBALAMIN (VITAMIN B12) [MASS/VOLUM E] IN SERUM OR PLASMA 571 pg/mL 200 - 900 10/27 Specimen Type: SERUM No comment entered. Ordering Provider: JOSE MICHEL Report Released Date/Time: Oct 21, 2023 02:23 PM Reporting Lab: [facility] [place] [facility] [address] [facility] [address] Performing Lab: [facility] [place] [facility] [address] [facility] [address] [facility] [facility] HEMOGLOBI N A1C PANEL HEMOGLOBIN A1C/HEMOGLO BIN.TOTAL IN BLOOD BY HPLC 5.3 4.0 - 5.6 10/27 Specimen Type: BLOOD Comment: Values obtained from A1C measurement s can vary. For atypical A1C assays, a reported value of 7.0 could actually be between 6.72 and 7.28 if measured by a reference method. A reported value of 9.0 could actually be between 8.73 and 9.27. Ref: http://www. ngsp.org/[place] Pdata.asp Ordering Provider: JOSE MICHEL Report Released Date/Time: May 03, 2023 09:13 AM Reporting Lab: [facility] [address] [address] Performing Lab: [address] [address] [facility] LIPID PANEL FASTING CHOLESTEROL [MASS/VOLUM E] IN SERUM OR PLASMA 91 mg/dL 10/27 Specimen Type: SERUM No comment entered. Ordering Provider: JOSE MICHEL Report Released Date/Time: May 03, 2023 09:13 AM Reporting Lab: [facility] [address] [facility] [address] Performing Lab: [facility] [address] [address] [facility] LIPID PANEL FASTING TRIGLYCERID E [MASS/VOLUM E] IN SERUM OR PLASMA 84 mg/dL 0 - 150 10/27 Specimen Type: SERUM No comment entered. Ordering Provider: JOSE MICHEL Report Released Date/Time: May 03, 2023 09:13 AM Reporting Lab: [facility] [address] [facility] [address] Performing Lab: [address] [address] [facility] LIPID PANEL FASTING CHOLESTEROL IN LDL [MASS/VOLUM E] IN SERUM OR PLASMA BY CALCULATION 28 mg/dL 0 - 129 10/27 Specimen Type: SERUM No comment entered. Ordering Provider: JOSE MICHEL Report Released Date/Time: May 03, 2023 09:13 AM Reporting Lab: [facility] [place] [facility] [address] [facility] [address] Performing Lab: [facility] [place] [facility] [address] [facility] [address] [facility] LIPID PANEL FASTING CHOLESTEROL .TOTAL/CHOL ESTEROL IN HDL [MASS RATIO] IN SERUM OR PLASMA 2.0 10/27 Specimen Type: SERUM No comment entered. Ordering Provider: JOSE MICHEL Report Released Date/Time: May 03, 2023 09:13 AM Reporting Lab: [facility] TRN [facility]ITALUSENY[facility] [address] [address] Performing Lab: [facility]RL W[facility]N [facility] [address] [address] [facility]OSPITALRDEKALB REGIONAL MEDICAL CENTERTRN [facility]OS[facility]ITALUSE [facility] LIPID PANEL FASTING CHOLESTEROL IN HDL [MASS/VOLUM E] IN SERUM OR PLASMA 46 mg/dL 40 - 60 10/27 Specimen Type: SERUM No comment entered. Ordering Provider: JOSE MICHEL Report Released Date/Time: May 03, 2023 09:13 AM Reporting Lab: [facility]RL TRN [facility] [address] [address] Performing Lab: [facility] [address] [address] [facility] LIVER FUNCTION PROTEIN [MASS/VOLUM E] IN SERUM OR PLASMA 6.9 g/dL 6.0 - 8.3 10/27 Specimen Type: SERUM No comment entered. Ordering Provider: JOSE MICHEL Report Released Date/Time: May 03, 2023 09:13 AM Reporting Lab: [facility] [place] [facility] [address] [address] Performing Lab: [facility] [place] [facility] [address] [address] [facility]RL W[facility] LIVER FUNCTION ALBUMIN [MASS/VOLUM E] IN SERUM OR PLASMA 4.0 g/dL 3.5 - 5.0 10/27 Specimen Type: SERUM No comment entered. Ordering Provider: JOSE MICHEL Report Released Date/Time: May 03, 2023 09:13 AM Reporting Lab: [facility] [place] [facility] [address] [address] Performing Lab: [facility] [place] [facility] [address] [address] [facility] [place] [facility] LIVER FUNCTION ALKALINE PHOSPHATASE [ENZYMATIC ACTIVITY/VO LUME] IN SERUM OR PLASMA 132 U/L 40 - 150 10/27 Specimen Type: SERUM No comment entered. Ordering Provider: JOSE MICHEL Report Released Date/Time: May 03, 2023 09:13 AM Reporting Lab: [facility] [place] [facility] [address] [address] Performing Lab: [facility] [place] [facility] [address] [address] [facility] [place] [facility] LIVER FUNCTION ASPARTATE AMINOTRANSF ERASE [ENZYMATIC ACTIVITY/VO LUME] IN SERUM OR PLASMA 32 U/L 5 - 34 10/27 Specimen Type: SERUM No comment entered. Ordering Provider: JOSE MICHEL Report Released Date/Time: May 03, 2023 09:13 AM Reporting Lab: [facility] [place] [facility] [address] [address] Performing Lab: [facility] [place] [facility] [address] [address] [facility] [place] [facility] LIVER FUNCTION ALANINE AMINOTRANSF ERASE [ENZYMATIC ACTIVITY/VO LUME] IN SERUM OR PLASMA 35 U/L 10/27 Specimen Type: SERUM No comment entered. Ordering Provider: JOSE MICHEL Report Released Date/Time: May 03, 2023 09:13 AM Reporting Lab: [facility] [place] [facility] [address] [address] Performing Lab: [facility] [place] [facility] [address] [address] [facility] [place] [facility] LIVER FUNCTION BILIRUBIN.T OTAL [MASS/VOLUM E] IN SERUM OR PLASMA 1.0 mg/dL 0.2 - 1.2 10/27 Specimen Type: SERUM No comment entered. Ordering Provider: JOSE MICHEL Report Released Date/Time: May 03, 2023 09:13 AM Reporting Lab: [facility] [place] [facility] [address] [facility] [address] Performing Lab: [facility] [place] [facility] [address] [address] [facility] [place] [facility] Vital Signs Combined list of inpatient and outpatient Vital Signs from Department of Defense and Veterans Affairs, ranging from 12 months to all on record, depending upon the facility. Vital Sign Value Date Comments Source SYSTOLIC BLOOD PRESSURE 118 11/01/19 24 11:10:36 [facility] [place] [facility] DIASTOLIC BLOOD PRESSURE 79 024 11:10:36 [facility] [place] [facility] PULSE OXIMETRY 97 11/01/2023 11:10:36 [facility] [place] WEIGHT 219.4 11/01/2023 11:10:36 [facility] [place] [facility] BMI 35kg/m2 11/01/2023 11:10:36 [facility] [place] PAIN 0 11/01/2023 11:10:36 [facility] HEIGHT 66 11/01/2023 11:10:36 [facility] [place] [facility] TEMPERATURE 96.1 11/01/2023 11:10:36 [facility] [place] PULSE 62 11/01/2023 11:10:36 [facility] [place] RESPIRATION 20 11/01/2023 11:10:36 [facility] [place] SYSTOLIC BLOOD PRESSURE 113 08/18/19 24 11:48:23 [place] DIASTOLIC BLOOD PRESSURE 68 024 11:48:23 [place] PULSE OXIMETRY 95 08/18/2023 11:48:23 [place] TEMPERATURE 97.8 08/18/2023 11:48:23 [place] PULSE 66 08/18/2023 11:48:23 [place] SYSTOLIC BLOOD PRESSURE 122 05/14/19 24 09:47:00 [place] DIASTOLIC BLOOD PRESSURE 77 024 09:47:00 [place] PULSE OXIMETRY 97 05/14/2023 09:47:00 [place] PAIN 0 05/14/2023 09:47:00 [place] TEMPERATURE 98 05/14/2023 09:47:00 [place] PULSE 67 05/14/2023 09:47:00 [place] RESPIRATION 15 05/14/2023 09:47:00 [place] SYSTOLIC BLOOD PRESSURE 125 05/07/19 24 10:26:13 [place] DIASTOLIC BLOOD PRESSURE 74 024 10:26:13 [place] PULSE OXIMETRY 97 05/07/2023 10:26:13 [place] PAIN 0 05/07/2023 10:26:13 [place] TEMPERATURE 98.7 05/07/2023 10:26:13 [place] PULSE 63 05/07/2023 10:26:13 [place] RESPIRATION 16 05/07/2023 10:26:13 [place] SYSTOLIC BLOOD PRESSURE 127 05/06/19 24 09:50:08 [place] DIASTOLIC BLOOD PRESSURE 80 024 09:50:08 [place] PULSE OXIMETRY 95 05/06/2023 09:50:08 [place] PAIN 2 05/06/2023 09:50:08 [place] TEMPERATURE 98.5 05/06/2023 09:50:08 [place] PULSE 71 05/06/2023 09:50:08 [place] RESPIRATION 18 05/06/2023 09:50:08 [place] Encounters Combined list of: 1) Encounters from Department of [facility] Affairs facilities [facility] 2) Encounters from the Department of Defense facilities going back up to 280 months. Location Location Details Encounter Type Encounter Number Reason For Visit Attending Provider ADM Date DC Date Status Disposition Source [facility] [place] [facility] Outpatient Encounter [id number] 09/25 [facility] [place] [facility] [place] W PT 60 MINUTES [id number] Diagnos is: ICD-10- CM F43.12 Post-tr aumatic stress disorde r, chronic
LUIS,DEBOR 09/25 [place] [facility] En[facility] [id number] 09/29 [facility] [place]/OP EST AUGUST X REQ PHY/QHP [id number] Diagnos is: ICD-10- CM E78.00 Pure hyperch olester olemia, unspeci fied
SONIDO,L SHAY H 09/29 [place] [facility] Encounter [id number] 10/01 [facility] En[facility] [id number] 10/01 [facility] En[facility] [id number] 10/12 [facility] [place] W PT 60 MINUTES [id number] Diagnos is: ICD-10- CM F43.12 Post-tr aumatic stress disorde r, chronic
HERMINIO SMITH 10/29 [place] W PT 60 MINUTES [id number] Diagnos is: ICD-10- CM F43.12 Post-tr aumatic stress disorde r, chronic
HERMINIO SMITH 12/01 [place] W PT 60 MINUTES [id number] Diagnos is: ICD-10- CM F43.12 Post-tr aumatic stress disorde r, chronic
HERMINIO SMITH 01/01 [place] [facility] En[facility] [id number] MAYDA GALLEGOS 01/21 [facility] En[facility] [id number] 01/24 [facility] Encounter [id number] 01/24 [facility] [place]/OP EST AUGUST X REQ PHY/QHP [id number] Diagnos is: ICD-10- CM Z23 Encount er for immuniz ation<b r/> Claude HEAD H 01/28 [place] W PT 60 MINUTES [id number] Diagnos is: ICD-10- CM F43.12 Post-tr aumatic stress disorde r, chronic
HERMINIO SMITH AH 01/29 [place] [facility] [id number] 02/02 [facility] Encounter [id number] 03/08 [facility] Encounter [id number] 03/09 [facility] En[facility] [id number] 03/09 [facility] [place] W PT 60 MINUTES [id number] Diagnos is: ICD-10- CM F43.12 Post-tr aumatic stress disorde r, chronic
NINA SMITHOR 03/11 [place] [facility] En[facility] [id number] 03/15 [facility] En[facility] [id number] 03/17 [facility] En[facility] [id number] 03/17 [facility] En[facility] [id number] 03/23 [facility] [place] [facility] [place] PSY[place] W PT 60 MINUTES [id number] [id number] Diagnos is: ICD-10- CM F43.12 Post-tr aumatic stress disorde r, chronic
HERMINIO SMITH 04/13 [place] [facility] [id number] 04/21 [facility] En[facility] [id number] 04/28 [facility] [place] [place] OFF/OP EST AUGUST X REQ PHY/QHP [id number] [id number] 10 Diagnos is: ICD-10- CM L02.212 Cutaneo us abscess of back [any part, except buttock ]
NAN,ER IC K 04/28 [place] [facility] En[facility] [id number] 04/28 [facility] [place] O/P EST SF 10 MIN [id number] Diagnos is: ICD-10- CM L02.91 [place]o us abscess , unspeci fied
IZABELLA,BASIL NDRA C 04/28 [place] OFF/OP EST AUGUST X REQ PHY/QHP [id number] [id number] 19 Diagnos is: ICD-10- CM L02.91 [place] us abscess , unspeci fied
Claude HEAD SHAY H 04/30 [place] [facility] Outpatient Encounter [id number] 04/30 [facility] [place] [facility] [place] O/P EST LOW 20 MIN [id number] Diagnos is: ICD-10- CM L02.212 Cut[place]o us abscess of back [any part, except buttock ]
BASIL PAREKH NDRA C 04/30 [place] O/P EST LOW 20 MIN [id number] Diagnos is: ICD-10- CM L72.3 Sebaceo us cyst
MARILU,A POLIBENIGNOIO 05/03 [place] [facility] Outpatient Encounter [id number] 05[facility]06 [facility] [place] [facility] [place] [facility] Outpatient Encounter [id number] 05/06 [facility] [place] [facility] [place] OFF/OP EST AUGUST X REQ PHY/QHP [id number] [id number] 14 Diagnos is: ICD-10- CM L02.212 [place] us abscess of back [any part, except buttock ]
KWASI MONTANA IC K 05/06 [place] [facility] En[facility] [id number] 05/07 [facility] [place] [facility] Outpatient Encounter [id number] 05/07 [facility] [place] [facility] [place] OFF/OP EST MAY X REQ PHY/QHP [id number] 14 Diagnos is: ICD-10- CM L02.212 [place] us abscess of back [any part, except buttock ]
NANKWASI EDWARDS IC K 05/07 [place] [facility] Outpatient Encounter [id number] 05/07 [facility] [place] [place] O/P EST LOW 20 MIN [id number] Diagnos is: ICD-10- CM L02.212 [place] us abscess of back [any part, except buttock ]
BASIL PAREKH 05/07 [place] [facility] [place] [facility] Outpatient Encounter [id number] 05/11 [facility] [place] [place] PSY[place] W PT 60 MINUTES [id number] Diagnos is: ICD-10- CM F43.12 Post-tr aumatic stress disorde r, chronic
LUIS,DEBOR AH 05/13 [place] OFF/OP EST AUGUST X REQ PHY/QHP [id number] Diagnos is: ICD-10- CM L02.212 [place] us abscess of back [any part, except buttock ]
KWASI MONTANA IC K 05/14 [place] O/P EST LOW 20 MIN [id number] Diagnos is: ICD-10- CM L02.212 [place] us abscess of back [any part, except buttock ]
BASIL PAREKH C 05/14 [place] [facility] En[facility] [id number] 05/14 [facility] En[facility] [id number] [facility] [place] W PT 60 MINUTES [id number] Diagnos is: ICD-10- CM F43.12 Post-tr aumatic stress disorde r, chronic
[facility] [place] PT 60 MINUTES [id number] Diagnos is: ICD-10- CM F43.12 Post-tr aumatic stress disorde r, chronic
[facility] 07[facility]07 [place] [facility] En[facility] [id number] 08/08 [facility] [place] En[facility] [id number] 08/08 [facility] [place] W PT 60 MINUTES [id number] Diagnos is: ICD-10- CM F43.12 Post-tr aumatic stress disorde r, chronic
[facility] [place]OP EST AUGUST X REQ PHY/QHP [id number] [id number] Diagnos is: ICD-10- CM M79.644 Pain in right finger( s)
STEPHANIA MULLER 08/17 [place] [facility] En[facility] [id number] 08/17 [facility] [place] O/P EST MOD 30 MIN [id number] 21 Diagnos is: ICD-10- CM M79.674 Pain in right toe(s)< br/> BASIL PAREKH 08/17 [facility] [place] PSY[place] W PT 60 MINUTES [id number] [id number] Diagnos is: ICD-10- CM F43.12 Post-tr aumatic stress disorde r, chronic
HERMINIO SMITH 09/15 [place] [facility] En[facility] [id number] 09/19 [facility] En[facility] [id number] 09/19 [facility] En[facility] [id number] 09/19 [facility] En[facility] [id number] 09/21 [facility] En[facility] [id number] 09/21 [facility] [place] [place] [place] PSY[place] W PT 60 MINUTES [id number] Diagnos is: ICD-10- CM F43.12 Post-tr aumatic stress disorde r, chronic
HERMINIO SMITH 10/27 [facility] EST MOD 30 MIN [id number] Diagnos is: ICD-10- CM Z00.01 Encount er for general adult medical exam w abnorma l finding s
Kilo MICHEL 10/31 [place] [facility] En[facility] [id number] 11/14 [facility] En[facility] [id number] 11/14 [facility] En[facility] [id number] 11/14 [facility] Encounter [id number] 11/14 [facility] [place] PSYTX W PT 60 MINUTES [id number] Diagnos is: ICD-10- CM F43.12 Post-tr aumatic stress disorde r, chronic
HERMINIO SMITH 12/08 [place] [facility] Encounter [id number] 12/08 [facility] En[facility] [id number] 12/08 [facility] [place] Encounter [id number] Kilo MICHEL 12/08 [facility] [place] [facility] (6[facility] [id number] Diagnos is: ICD-10- CM E66.9 Obesity , unspeci fied
KILLIAN VELASCO RA 12/20 [facility] (6[facility]) [facility] (6[facility] [id number] [id number] Diagnos is: ICD-10- CM E66.9 Obesity , unspeci fied
KILLIAN VELASCO RA 12/27 [facility] (6[facility]GE) [facility] Outpatient Encounter [id number] 1.12/29 [facility] Outpatient Encounter [id number] 1.12/29 [facility] Outpatient Encounter [id number] 1.12/29 [facility] [place] (631GE) Outpatient Encounter [id number] 01/03 [facility] (631GE) [place] PSY[place] W PT 60 MINUTES [id number] [id number] Diagnos is: ICD-10- CM F43.12 Post-tr aumatic stress disorde r, chronic
LUIS,DEBOR AH 01/05 [place] [facility] Outpatient Encounter [id number] 01/05 [facility] [place] [facility] (631GE[place] [id number] 1GE. 13 Diagnos is: ICD-10- CM E66.3 Overwei ght<br/ > KILLIAN VELASCO RA 01/10 [facility] (631GE) [facility] Encounter [id number] [facility] Outpatient Encounter [id number] 1.01/30 [facility] [place] [place] OFF/OP EST AUGUST X REQ PHY/QHP [id number] Diagnos is: ICD-10- CM Z23 Encount er for immuniz ation<b r/> KATHERINE GAR EL[place]IN [place] [facility] Outpatient Encounter [id number] 1.02/08 [facility] [place] Outpatient Encounter [id number] 1.02/08 [facility] [place] MINUT[facility] [id number] Diagnos is: ICD-10- CM F43.12 Post-tr aumatic stress disorde r, chronic
LUIS,DEBOR AH 02/09 [place] [facility] Outpatient Encounter [id number] 1.02/17 [facility] [place] [facility] 60 MINUTES [id number] Diagnos is: ICD-10- CM F43.12 Post-tr aumatic stress disorde r, chronic
LUIS,DEBOR AH 03/16 [place] [facility] [place] [facility] Outpatient Encounter [id number] 1. Claude HEAD 03/17 [facility] [place] [facility] Outpatient [facility]counter [id number] 1.03/17 [facility] [place] [facility] [place] Outpatient Encounter [id number] 03/20 [facility] [place] [facility] Social History Combined list of available smoking, tobacco, and other social history from Department of Defense and Veterans Affairs facilities. Social History Type Response Date Comment [facility] e Tobacco smoking status [facility] VA-TOBACCO NEVER USED 11/01/2023 [facility] of [facility] MORE [facility]2022 [place] [facility]2021 [place] [facility]/14[facility]2020 [place] [facility] 5 Y[facility] OR MORE 07/05/2018 [place] History of tobacco use QUIT TOBACCO USE > 7 YEARS AGO 05/19/2017 [place] History of tobacco use QUIT TOBACCO USE > 7 YEARS AGO 04/29/2016 Quit 20 years ago [place] History of tobacco use QUIT TOBACCO USE > 7 YEARS AGO 03/21/2015 [place] History of tobacco use QUIT TOBACCO USE > 7 YEARS AGO 05/03/2012 [place] Plan of Care List of future care activities from Department of [facility] Affairs facilities. Additional future care activities may be listed in the Assessment and Plan section. Date/Time Care Activity Care Activity Detail [facility] 04/20/2024 [facility]/03/2024 Laboratory - Acquisitions Assistant ry Order VITAMIN D 25-OH (Therapy monitor) BLOOD (SST-SERUM) [facility] 05/03/2024 Laboratory - Acquisitions Assistant ry Order VITAMIN B12 BLOOD (SST-SERUM) [facility] 05/03/2024 Laboratory - Acquisitions Assistant ry Order MAGNESIUM BLOOD (SST-SERUM) [facility] 05/03/2024 Laboratory - Acquisitions Assistant ry Order BASIC METABOLIC PANEL (fasting) BLOOD (SST-SERUM) [facility] 05/03/2024 Laboratory - Acquisitions Assistant ry Order LIPID PANEL FASTING BLOOD (SST-SERUM) [facility] 05/03/2024 Laboratory - Acquisitions Assistant ry Order CBC AND DIFF (AUTO) BLOOD (LAV-BLOOD) [facility] 05/03/2024 Laboratory - Acquisitions Assistant ry Order LIVER FUNCTION BLOOD (SST-SERUM) [facility] 05/03/2024 Laboratory - Acquisitions Assistant ry Order HEMOGLOBIN A1C PANEL BLOOD (LAV-BLOOD) [facility] 05/03/2024 Laboratory - Acquisitions Assistant ry Order TSH BLOOD (SST-SERUM) [facility]
--- OUTSIDE RECORDS SUMMARY | 2024-03-23 01:10 | XMS_ITS ---
Author Name [facility] ([place]) Organization [facility] [place]) Address [address] [place] [address] Care Team Providers Care Bike Technician Name Role Phone BALTA MICHEL Primary Care [...] O MEDEX BRONZ E Apr 12, 2014 [id number] WILLOREN, OMAS PATIENT [place] SUPPLEMEN KATHRYN MEDEX BRONZ E Mar 12, 2013 [id number] WILLOREN, OMAS [place] SU[place] KATHRYN MEDEX BRONZ E Mar 12, 2013 [id number] WILLOREN,TH OMAS PATIENT MEDICARE (WNR) MEDICARE (M) PART B Feb 10, 2013 PART B [id number] BENITO CARSON PATIENT MEDICARE (WNR) MEDICARE (M) PART A Feb 10, 2013 PART A [id number] TX12 BENITO CARSON PATIENT MEDICARE (WNR) MEDICARE (M) PART A Feb 10, 2013 PART A [id number] [id number] [phone] BENITO CARSON PATIENT MEDICARE (WNR) MEDICARE (M) PART B Feb 10, 2013 PART B [id number] TX12 BENITO CARSON PATIENT Selected Encounter This section includes the information on record at MD for the Encounter. Date/Time Encounter Type Encounter Description Reason Pro vider Source Mar 23, 2023 12:00 PM Outpatient Encounter COMMUNITY CARE CONSULT IHE Encounter Template Text not used by MD Plan of Treatment: Future Appointments (+ 6 months) and Future Tests (+/- 45 days) The Plan of Treatment section includes future care activities for the patient from all MD treatmentfacilities. This section includes future appointments and future orders which are active, pending or scheduled. Future Appointments This section includes appointments that were scheduled to occur 6 months from the date of the Encounter, up to a maximum of 20 appointments. The data comes from all MD treatment facilities. Appointment Date/Time Appointment Type Appointme nt Facility Name Apr 13, 2023 10:00 AM AMBULATORY - PSYCHIATRY [facility] Apr 28, 2023 02:00 PM AMBULATORY - MEDICINE [facility] Apr 28, 2023 02:15 [facility] Apr 30, 2023 10:15 AM AM[facility]ATORY - MEDICINE [facility] May 03, 2023 08:30 AM AMBULATORY - MEDICINE [place] C NTRL W[facility] [place] [facility] May 06, 2023 09:30 AM AMBULATORY - MEDICINE [facility] May 07, 2023 10:15 AM AMBULATORY - MEDICINE [facility] May 07, 2023 10:30 AM AMBULATORY - MEDICINE [facility] May 13, 2023 11:00 AM AMBULATORY - PSYCHIATRY [facility] May 14, 2023 09:15 AM AMBULATORY - MEDICINE [facility] May 14, 2023 09:30 AM AMBULATORY - MEDICINE [facility] May 17, 2023 10:10 AM AMBULATORY - MEDICINE [place] [facility] Jun 10, 2023 11:00 AM AMBULATORY - PSYCHIATRY [facility] Jul 08, 2023 10:00 AM AMBULATORY - PSYCHIATRY [facility] August 12, 2023 11:00 AM AMBULATORY - PSYCHIATRY [facility] August 18, 2023 11:15 AM AMBULATORY - MEDICINE [facility] August 18, 2023 11:30 AM AMBULATORY - MEDICINE [facility] Sep 16, 2023 11:00 AM AMBULATORY - PSYCHIATRY [facility] Sep 22, 2023 12:00 PM AMBULATORY - MEDICINE [facility] Encounter Notes: All associated encounter notes This section contains the clinical notes associated to the Encounter. Date/Time Encounter Note(s) Provider Source Mar 23, 2023 12:00 PM NONVA CONSULT: LOCAL TITLE: COMMUNITY CARE-CONSULT RESULT NOTE STANDARD TITLE: NONVA CONSULT DATE OF NOTE: MAR 23, 2023@12:00 ENTRY DATE: APR 06, 2023@12:27:35 AUTHOR: NICK TREJO COSIGNER: URGENCY: STATUS: COMPLETED VistA Imaging - Scanned Document SCANNED DOCUMENT SIGNATURE NOT REQUIRED Electronically Filed: 04/06/2023 by: HARMONY TREJO Automation And Control Engineer HARMONY TREJO [facility]
--- OUTSIDE RECORDS SUMMARY | 2024-03-23 01:11 | XMS_ITS | Encounter Summary ---
Author Name [facility] [place] Organization [facility] [place] Address [address] [place] [address] Care Team Providers Care Qc Tech Name Role Phone BALTA MICHEL Primary Care [...] O MEDEX BRONZ E Apr 12, 2014 [id number] WILLOREN, OMAS PATIENT [place] SUPPLE[place] KATHRYN MEDEX BRONZ E Mar 12, 2013 [id number] ALLI, OM[place] KATHRYN MEDEX BRONZ E Mar 12, 2013 [id number] ALLI,BENITO OMAS PATIENT MEDICARE (WNR) MEDICARE (M) PART A Feb 10, 2013 PART A [id number] TX12 BENITO CARSON PATIENT MEDICARE (WNR) MEDICARE (M) PART B Feb 10, 2013 PART B [id number] TX12 BENITO CARSON PATIENT MEDICARE (WNR) MEDICARE (M) PART A Feb 10, 2013 PART A [id number] TX12 [phone] BENITO CARSON PATIENT MEDICARE (WNR) MEDICARE (M) PART B Feb 10, 2013 PART B [id number] TX12 BENITO CARSON PATIENT Selected Encounter This section includes the information on record at NM for the Encounter. Date/Time Encounter Type Encounter Description Reason Provider Source Apr 30, 2023 10:15 AM OFF/OP EST AUGUST X REQ PHY/QHP PRIMARY CARE/MEDICINE ICD-10-CM L02.91 Cutaneous abscess, unspecified MIGUEL HEAD Mike Encounter Template Text not used by [place] Assessments - Encounter Diagnoses This section includes the primary and secondary diagnoses documented for the Encounter. Date/Time Primary/Secondary Diagnosis Diagnosis Name Provider Source May 11, 2023 04:31 PM PRIMARY Cutaneous abscess, unspecified MIGUEL HEAD [place] [facility] Plan of Treatment: Future Appointments (+ 6 [...] Date/Time Appointment Type Appointme nt Facility Name May 03, 2023 08:30 AM AMBULATORY - MEDICINE [place] [facility] [place] [facility] May 06, 2023 09:30 AM AMBULATORY - MEDICINE [facility] May 07, 2023 10:15 AM AMBULATORY - MEDICINE [facility] May 07, 2023 10:30 AM AMBULATORY - MEDICINE [facility] May 13, 2023 11:00 AM AMBULATORY - PSYCHIATRY [facility] May 14, 2023 09:15 AM AMBULATORY - MEDICINE [facility] May 14, 2023 09:30 AM AMBULATORY - MEDICINE [facility] May 17, 2023 10:10 AM AMBULATORY - MEDICINE [place] [facility] Jun 10, 2023 11:00 AM AMBULATORY - PSYCHIATRY [facility] Jul 08, 2023 10:00 AM AMBULATORY - PSYCHIATRY [facility] August 12, 2023 11:00 AM AMBULATORY - PSYCHIATRY [facility] August 18, 2023 11:15 AM AMBULATORY - MEDICINE [facility] August 18, 2023 11:30 AM AMBULATORY - MEDICINE [facility] Sep 16, 2023 11:00 AM AMBULATORY - PSYCHIATRY [facility] Sep 22, 2023 12:00 PM AMBULATORY - MEDICINE [place] C [place] [facility] Oct 28, 2023 11:00 AM AMBULATORY - PSYCHIATRY [facility] Lab Results: +/- 30 days of [...] Range Comment Apr 28, 2023 01:39 PM [facility] MICROALBUMIN CREATININE RATIO PANEL Specimen Type: URINE No comment entered. Ordering Provider: JEAN MARIE MICHEL Report Released Date/Time: Apr 22, 2023 02:14 PM Reporting [facility] [address] [facility] [address] Performing Lab: [facility] [address] [facility] [address] MICROALBUMIN/C REATININE RATIO 10.6 mg/g 0-29.9 MICROALBUMIN,Q UANTITATIVE 1.6 mg/dL RR UNAVAIL CREATININE URINE 150.39 mg/dL Apr 28, 2023 01:39 PM [facility] W[facility] LIPID PANEL FASTING Specimen Type: SERUM No comment entered. Ordering Provider: JEAN MARIE MICHEL Report Released Date/Time: Apr 22, 2023 02:14 PM Reporting Lab: [facility] W[facility] [address] [address] Performing Lab: [facility] [address] [address] CHOLESTEROL 83 mg/dL TRIGLYCERIDE 57 mg/dL 0-150 LDL calculated 31 mg/dL 0-129 CHOL/HDL 2.0 HDL CHOLESTEROL 41 mg/dL 40-60 Apr 28, 2023 01:39 PM [facility] BASIC METABOLIC PANEL (fasting) Specimen Type: SERUM No comment entered. Ordering Provider: JEAN MARIE MICHEL Report Released Date/Time: Apr 22, 2023 02:14 PM Reporting Lab: [facility] [address] [facility] [address] Performing Lab: [facility] [address] [address] UREA NITROGEN 22 mg/dL 7-25 GLUCOSE 81 mg/dL 65-100 SODIUM 137 mmol/L 135-145 POTASSIUM 4.1 mmol/L 3.5-5.0 CHLORIDE 103 mmol/L 100-110 CO2 23 meq/L 20-30 CREATININE, Serum 1.18 mg/dL 0.50-1.40 eGFR(CKD-EPI 2020) 64 mL/min >60 Apr 28, 2023 01:39 PM [facility] HEMOGLOBIN A1C PANEL Specimen Type: [...] Apr 22, 2023 02:14 PM Reporting Lab: [facility] [address] [address] Performing Lab: [address] [address] HEMOGLOBIN A1C 5.6 4.0-5.6 Apr 28, 2023 01:39 PM [facility] TSH Specimen Type: SERUM No comment entered. Ordering Provider: JEAN MARIE MICHEL Report Released Date/Time: Apr 22, 2023 02:14 PM Reporting Lab: [facility] [address] [facility] [address] Performing Lab: [address] [address] TSH 2.38 u[IU]/mL 0.35-5.00 Apr 28, 2023 01:39 PM [facility] LIVER FUNCTION Specimen Type: SERUM No comment entered. Ordering Provider: JEAN MARIE MICHEL Report Released Date/Time: Apr 22, 2023 02:14 PM Reporting Lab: [address] [address] Performing Lab: [address] [address] PROTEIN,TOTAL 6.5 g/dL 6.0-8.3 ALBUMIN 3.8 g/dL 3.5-5.0 ALKALINE PHOSPHATASE 109 U/L 40-150 AST 35 U/L H 5-34 ALT 36 U/L BILIRUBIN, TOTAL 1.0 mg/dL 0.2-1.2 Apr 28, 2023 01:39 PM [facility] CBC AND DIFF (AUTO) Specimen Type: BLOOD No comment entered. Ordering Provider: JEAN MARIE MICHEL Report Released Date/Time: Apr 22, 2023 02:14 PM Reporting Lab: [address] [address] Performing Lab: [address] [address] WBC 4.69 10*3/uL 4.50-11.00 RBC 4.53 10*6/uL 4.23-5.66 HGB 12.7 g/dL L 12.8-17 HCT 38.4 L 39.2-50.4 MCV 84.8 fL 82-99 MCHC 33.1 g/dL 30.8-35.1 PLT 178 10*3/uL 140-360 RDW-CV 13.2 12.0-16.0 [place], Abs 0.47 10*3/uL 0.30-1.10 MCH 28.0 pg 26.2-32.6 Neut % 51.6 43.7-75.8 Lymph % 34.8 14.0-42.3 [place] % 10.0 5.1-13.7 Eos % 2.8 0.4-6.8 Baso % 0.6 0.1-2.0 Neut, Abs 2.42 10*3/uL 2.20-7.60 Lymph, Abs 1.63 10*3/uL 1.00-3.20 Eos, Abs 0.13 10*3/uL 0.03-0.44 Baso, Abs 0.03 10*3/uL 0.01-0.13 Immature Gran % 0.2 0.0-0.7 Immature Gran, Abs 0.01 10*3/uL 0.00-0.06 Vital Signs: All taken on the encounter date This section contains inpatient and outpatient Vital Signs collected on the date of the Encounter. Date/Time Temperature Pulse Blood Pressure Respiratory Rate SP02 Pain Height Weight Body Mass Index Source Apr 30, 2023 11:02 AM 98.2 F [facility] Social History: Smoking Status (Most current) and Tobacco Use (All prior to encounter date) This section includes the most current, and the historical, smoking and tobacco- related health factors from the [place] facility where the Encounter took place. Current Smoking Status This section includes the most current smoking, or tobacco-related health factor, from the [place] facility where the Encounter took place. Date/Time Current Smoking Status Comment Facil [facility] Sep 29, 2022 10:30 AM VA-TOBACCO FORMER USER [place] Tobacco Use History This section includes a history of the smoking, or tobacco-related health factors, that were collected on or before the date of the Encounter. The data comes from the [place] facility where the Encounter took place. Date/Time Smoking Status/Tobacco Use Comment F acility Sep 29, 2022 10:30 AM VA-TOBACCO QUIT 15 YRS OR MORE [place] Jan 21, 2021 09:00 AM VA-TOBACCO NEVER USED [place] Feb 14, 2020 01:00 PM VA-TOBACCO FORMER USER [place] [facility] Feb 14, 2020 01:00 PM VA-TOBACCO QUIT 15 YRS OR MORE [facility] Jul 05, 2018 03:54 PM VA-TOBACCO FORMER USER [place] [facility] Jul 05, 2018 03:54 PM VA-TOBACCO QUIT 15 YRS OR MORE [place] [facility] [place] May 19, 2017 01:01 PM QUIT TOBACCO USE > 7 YEARS AGO [place] [facility] Apr 29, 2016 12:14 PM QUIT TOBACCO USE > 7 YEARS AGO Quit 20 years ago [facility] Mar 21, 2015 02:25 PM QUIT TOBACCO USE > 7 YEARS AGO [place] [facility] May 03, 2012 12:04 PM QUIT TOBACCO USE > 7 YEARS AGO [facility] Encounter Notes: All associated encounter notes This section contains the clinical notes associated to the Encounter. Date/Time Encounter Note(s) Provider Source Apr 30, 2023 11:00 AM PRIMARY CARE NOTE: LOCAL TITLE: WALK-IN NOTE PRIMARY CARE (T) STANDARD TITLE: PRIMARY CARE NOTE DATE OF NOTE: APR 30, 2023@11:00 ENTRY DATE: APR 30, 2023@11:00:10 AUTHOR: MIGUEL HEAD COSIGNER: URGENCY: STATUS: COMPLETED <====Click to Start Nurse Data: 73year old MALE [place] reports to Primary Care clinic for Walk-In visit. [place]'s PCP is BALTA MICHEL, last visit with PCP was 12/16/2021, next visit scheduled for 05/03/2023 . Today Vet walks in for Dressing change for I& D preformed on Wed on Right upper back. Last recorded Vital Signs are: Temperature:98.2 F [36.8 C] (04/30/2023 1100 am) Pulse:78 (04/28/2023 14:00) Blood Pressure:121/78 (04/28/2023 14:00) Respiration:16 (04/28/2023 14:00) Pain:1 (04/28/2023 14:00) Active Outpatient Medications Status ===== 1) ALIROCUMAB 75MG/ML INJ 1ML PEN INJECT 75MG (1ML) ACTIVE SUBCUTANEOUSLY EVERY 2 WEEKS FOR HIGH CHOLESTEROL 2) CEPHALEXIN 500MG CAP TAKE ONE CAPSULE BY MOUTH THREE ACTIVE TIMES A DAY FOR INFECTION 3) DICLOFENAC NA 50MG EC TAB TAKE ONE TABLET BY MOUTH ACTIVE TWICE DAILY NEEDED FOR PAIN/INFLAMMATION 4) EZETIMIBE 10MG TAB TAKE ONE TABLET BY MOUTH ONCE ACTIVE DAILY TO LOWER CHOLESTEROL 5) HYDROCHLOROTHIAZIDE 25MG TAB TAKE ONE TABLET BY MOUTH ACTIVE ONCE DAILY FOR HIGH BLOOD PRESSURE 6) LISINOPRIL 10MG TAB TAKE ONE TABLET BY MOUTH ONCE ACTIVE DAILY TO CONTROL BLOOD PRESSURE 7) ROSUVASTATIN CA 40MG TAB TAKE ONE TABLET BY MOUTH ACTIVE ONCE DAILY FOR CHOLESTEROL Active Non-VA Medications Status ===== 1) Non-VA ASPIRIN 81MG EC TAB 81MG BY MOUTH DAILY ACTIVE 8 Total Medications Action: has an abscess on his right upper back, s/p I&D. The old dressing was removed, revealing serosanguineous drainage. The wound bed was pinkish/red and healed nicely; there was no foul smell noted. Wound was cleaned with normal saline, then wrapped with a 4x4 gauze sponge. To keep the wound dry, a tagaderm dressing was applied on top of the gauze. UNABLE TO COMPLETE CLINICAL REMINDERS DUE TO TIME CONSTRAINT Reminders Info Only: [facility] Video Connect Capable DUE NOW Suicide Screen May 26 Toxic Exposure Screening DUE NOW Falls & Incontinence Screen DUE NOW Mental Health Treatment Plan DUE NOW Medication Reconciliation DUE NOW Eye Care At-Risk Screen DUE NOW Response: The was instructed to call the clinic to report symptoms or walk in to the sick clinic if he experiences fever, pain, or excessive discharge. On 05/03/23, the will return to see PCP and have his wound redressed. Time spent with 10 mins /lili/ DESIREE HAWKINS,RN-BC REGISTERED NURSE (RN) Signed: 04/30/2023 11:15 MIGUEL HEAD
--- OUTSIDE RECORDS SUMMARY | 2024-03-23 01:11 | XMS_ITS | Encounter Summary ---
Author Name [facility] [place] Address [address] [place] [address] Care Team Providers Care Pipe Fitter Gas Pipe Name Role Phone BALTA MICHEL Primary Care [...] O MEDEX BRONZ E Apr 12, 2014 [id number] WILLOREN, OMAS PATIENT [place] MEDIC[place] SUPPLEMEN KATHRYN MEDEX BRONZ E Mar 12, 2013 [id number] [phone] ALLI, OM[place] PAT[place] SU[place] KATHRYN MEDEX BRONZ E Mar 12, 2013 [id number] ALLI,BENITO OMAS PATIENT MEDICARE (WNR) MEDICARE (M) PART A Feb 10, 2013 PART A [id number] TX12 BENITO CARSON PATIENT MEDICARE (WNR) MEDICARE (M) PART B Feb 10, 2013 PART B [id number] TX12 BENITO CARSON PATIENT MEDICARE (WNR) MEDICARE (M) PART A Feb 10, 2013 PART A [id number] TX12 [phone] BENITO CARSON PATIENT MEDICARE (WNR) MEDICARE (M) PART B Feb 10, 2013 PART B [id number] TX12 BENITO CARSON PATIENT Selected Encounter This section includes the information on record at [place] for the Encounter. Date/Time Encounter Type Encounter Description Reason Provider Source Apr 28, 2023 02:00 PM OFF/OP EST AUGUST X REQ PHY/QHP PRIMARY CARE/MEDICINE ICD-10-CM L02.212 Cutaneous abscess of back [any part, except buttock] DL [place] [facility] Encounter Template Text not used by [place] Assessments - Encounter Diagnoses This section includes the primary and secondary diagnoses documented for the Encounter. Date/Time Primary/Secondary Diagnosis Diagnosis Name Provider Source May 14, 2023 03:47 PM PRIMARY Cutaneous abscess of back [any part, except buttock] DL [place] Plan of Treatment: Future Appointments (+ 6 months) and Future Tests (+/- 45 days) The Plan of Treatment section includes future care activities for the patient from all [place] treatmentfacilities. This section includes future appointments and future orders which are active, pending or scheduled. Future Appointments This section includes appointments that were scheduled to occur 6 months from the date of the Encounter, up to a maximum of 20 appointments. The data comes from all [place] treatment facilities. Appointment Date/Time Appointment Type Appointme nt Facility Name Apr 30, 2023 10:15 AM AMBULATORY - MEDICINE [facility] May 03, 2023 08:30 AM [place] [facility] May 06, 2023 09:30 AM [facility] May 07, 2023 10:15 [facility] May 07, 2023 10:30 AM AMBULATORY - MEDICINE [facility] May 13, 2023 11:00 AM AMBULATORY - PSYCHIATRY [facility] May 14, 2023 09:15 AM AMBULATORY - MEDICINE [facility] May 14, 2023 09:30 AM [facility] May 17, 2023 10:10 AM [place] [facility] Jun 10, 2023 11:00 AM AMBULATORY - PSYCHIATRY [facility] Jul 08, 2023 10:00 AM AMBULATORY - PSYCHIATRY [facility] August 12, 2023 11:00 AM AMBULATORY - PSYCHIATRY [facility] August 18, 2023 11:15 AM AMBULATORY - MEDICINE [facility] August 18, 2023 11:30 AM AMBULATORY - MEDICINE [facility] Sep 16, 2023 11:00 AM AMBULATORY - PSYCHIATRY [facility] Sep 22, 2023 12:00 PM AMBULATORY - MEDICINE [facility] NTRL [facility] Lab Results: +/- 30 days of the encounter This section includes the Chemistry and Hematology Lab Results on record with [place] for the patient. Radiology Reports and Pathology Reports are provided separately, in subsequent sections. Lab Results This section contains the Chemistry/Hematology Results that were resulted 30 days before or 30 daysafter the date of the Encounter. Date/Time Source Result Type Result - Unit Interpretation Reference Range Comment Apr 28, 2023 01:39 PM [facility] MICROALBUMIN CREATININE RATIO PANEL Specimen Type: URINE No comment entered. Ordering Provider: JEAN MARIE MICHEL Report Released Date/Time: Apr 22, 2023 02:14 PM Reporting Lab: [address] [address] [facility] [address] [address] MICROALBUMIN/C REATININE RATIO 10.6 mg/g 0-29.9 MICROALBUMIN,Q UANTITATIVE 1.6 mg/dL RR UNAVAIL CREATININE URINE 150.39 mg/dL Apr 28, 2023 01:39 PM [facility] LIPID PANEL FASTING Specimen Type: SERUM No comment entered. Ordering Provider: JEAN MARIE MICHEL Report Released Date/Time: Apr 22, 2023 02:14 PM Reporting [facility] [address] [address] Performing Lab: [facility] [address] [address] CHOLESTEROL 83 mg/dL TRIGLYCERIDE 57 mg/dL 0-150 LDL calculated 31 mg/dL 0-129 CHOL/HDL 2.0 HDL CHOLESTEROL 41 mg/dL 40-60 Apr 28, 2023 01:39 PM [facility] BASIC METABOLIC PANEL (fasting) Specimen Type: SERUM No comment entered. Ordering Provider: JEAN MARIE MICHEL Report Released Date/Time: Apr 22, 2023 02:14 PM Reporting Lab: [facility] [address] [address] Performing Lab: [address] [address] UREA NITROGEN 22 mg/dL 7-25 GLUCOSE 81 mg/dL 65-100 SODIUM 137 mmol/L 135-145 POTASSIUM 4.1 mmol/L 3.5-5.0 CHLORIDE 103 mmol/L 100-110 CO2 23 meq/L 20-30 CREATININE, Serum 1.18 mg/dL 0.50-1.40 eGFR(CKD-EPI 2020) 64 mL/min >60 Apr 28, 2023 01:39 PM [facility] LIVER FUNCTION Specimen Type: SERUM No comment entered. Ordering Provider: JEAN MARIE MICHEL Report Released Date/Time: Apr 22, 2023 02:14 PM Reporting Lab: [address] [address] Performing Lab: [address] [address] PROTEIN,TOTAL 6.5 g/dL 6.0-8.3 ALBUMIN 3.8 g/dL 3.5-5.0 ALKALINE PHOSPHATASE 109 U/L 40-150 AST 35 U/L H 5-34 ALT 36 U/L BILIRUBIN, TOTAL 1.0 mg/dL 0.2-1.2 Apr 28, 2023 01:39 PM [facility] HEMOGLOBIN A1C PANEL Specimen Type: BLOOD [...] Apr 22, 2023 02:14 PM Reporting Lab: [facility] [address] [address] Performing Lab: [facility] [address] [address] HEMOGLOBIN A1C 5.6 4.0-5.6 Apr 28, 2023 01:[address] TSH Specimen Type: SERUM No comment entered. Ordering Provider: JEAN MARIE MICHEL Report Released Date/Time: Apr 22, 2023 02:14 PM Reporting [facility]: [facility] [address] [address] Performing Lab: [facility] [address] [address] TSH 2.38 u[IU]/mL 0.35-5.00 Apr 28, 2023 01:39 PM [facility] CBC AND DIFF (AUTO) Specimen Type: BLOOD No comment entered. Ordering Provider: JEAN MARIE MICHEL Report Released Date/Time: Apr 22, 2023 02:14 PM Reporting Lab: [facility] [address] [address] Performing Lab: [facility] [address] [address] WBC 4.69 10*3/uL 4.50-11.00 RBC 4.53 10*6/uL 4.23-5.66 HGB 12.7 g/dL L 12.8-17 HCT 38.4 L 39.2-50.4 MCV 84.8 fL 82-99 MCHC 33.1 g/dL 30.8-35.1 PLT 178 10*3/uL 140-360 RDW-CV 13.2 12.0-16.0 Callahan, Abs 0.47 10*3/uL 0.30-1.10 MCH 28.0 pg 26.2-32.6 Neut % 51.6 43.7-75.8 Lymph % 34.8 14.0-42.3 Callahan % 10.0 5.1-13.7 Eos % 2.8 0.4-6.8 [...] Height Weight Body Mass Index Source Apr 28, 2023 02:00 PM 98.2 F 78 /min 121/78 mm[Hg] 16 /min 97 % 1 [facility] [place] Social History: Smoking Status (Most current) and Tobacco Use (All prior to encounter date) This section includes the most current, and the historical, smoking and tobacco- related health factors from the [place] facility where the Encounter took place. Current Smoking Status This section includes the most current smoking, or tobacco-related health factor, from the [place] facility where the Encounter took place. Date/Time Current Smoking Status Comment Gonzalo lin Sep 29, 2022 10:30 AM VA-TOBACCO FORMER USER [place] Tobacco Use History This section includes a history of the smoking, or tobacco-related health factors, that were collected on or before the date of the Encounter. The data comes from the [place] facility where the Encounter took place. Date/Time Smoking Status/Tobacco Use Comment F katerine Sep 29, 2022 10:30 AM VA-TOBACCO QUIT 15 YRS OR MORE [place] Jan 21, 2021 09:00 AM VA-TOBACCO NEVER USED [place] Feb 14, 2020 01:00 PM VA-TOBACCO FORMER USER [place] Feb 14, 2020 01:00 PM VA-TOBACCO QUIT 15 YRS OR MORE [place] Jul 05, 2018 03:54 PM VA-TOBACCO FORMER USER [place] Jul 05, 2018 03:54 PM VA-TOBACCO QUIT 15 YRS OR MORE [place] May 19, 2017 01:01 PM QUIT TOBACCO USE > 7 YEARS AGO [place] Apr 29, 2016 12:14 PM QUIT TOBACCO USE > 7 YEARS AGO Quit 20 years ago [place] Mar 21, 2015 02:25 PM QUIT TOBACCO USE > 7 YEARS AGO [place] May 03, 2012 12:04 PM QUIT TOBACCO USE > 7 YEARS AGO [place] Encounter Notes: All associated encounter notes This section contains the clinical notes associated to the Encounter. Date/Time Encounter Note(s) Provider Source Apr 28, 2023 02:01 PM PRIMARY CARE NOTE: LOCAL TITLE: WALK-IN NOTE PRIMARY CARE (T) STANDARD TITLE: PRIMARY CARE NOTE DATE OF NOTE: APR 28, 2023@14:01 ENTRY DATE: APR 28, 2023@14:01:23 AUTHOR: DL [place] COSIGNER: URGENCY: STATUS: COMPLETED Data: 73year old MALE Pinewood reports to Primary Care clinic for Walk-In visit. [place]'s PCP is BALTA MICHEL, last visit with PCP was , next visit scheduled for . Today Vet walks in to clinic with complaint of large lump with drainage on back Last recorded Vital Signs are: Temperature:98.2 F [36.8 C] (04/28/2023 14:00) Pulse:78 (04/28/2023 14:00) Blood Pressure:121/78 (04/28/2023 14:00) Respiration:16 (04/28/2023 14:00) Pain:1 (04/28/2023 14:00) Vet reports current allergies are: Remote Allergy Data No Remote Allergy/ADR Data available for this patient Current Medications from Active Med list include: Active Outpatient Medications (including Supplies): Active Outpatient Medications Status = 1) ALIROCUMAB 75MG/ML INJ 1ML PEN INJECT 75MG (1ML) ACTIVE SUBCUTANEOUSLY EVERY 2 WEEKS FOR HIGH CHOLESTEROL 2) DICLOFENAC NA 50MG EC TAB TAKE ONE TABLET BY MOUTH ACTIVE TWICE DAILY NEEDED FOR PAIN/INFLAMMATION 3) EZETIMIBE 10MG TAB TAKE ONE TABLET BY MOUTH ONCE ACTIVE DAILY TO LOWER CHOLESTEROL 4) HYDROCHLOROTHIAZIDE 25MG TAB TAKE ONE TABLET BY MOUTH ACTIVE ONCE DAILY FOR HIGH BLOOD PRESSURE 5) LISINOPRIL 10MG TAB TAKE ONE TABLET BY MOUTH ONCE ACTIVE DAILY TO CONTROL BLOOD PRESSURE 6) ROSUVASTATIN CA 40MG TAB TAKE ONE TABLET BY MOUTH ACTIVE ONCE DAILY FOR CHOLESTEROL Active Non-VA Medications Status = 1) Non-VA ASPIRIN 81MG EC TAB 81MG BY MOUTH DAILY ACTIVE 7 Total Medications Action: reports area on right upper back started as a small lump and most recently increased in size and started to drain this past weekend Right upper back with 5 cm round indurated area with yellow crusty cap. jarvis wound with increase warmth and erythema Denies fever or chills Reminders Info Only: [facility] Video Connect Capable DUE NOW Suicide Screen May 26 Toxic Exposure Screening DUE NOW Falls & Incontinence Screen DUE NOW Mental Health Treatment Plan DUE NOW Medication Reconciliation DUE NOW Eye Care At-Risk Screen DUE NOW Response: /lili/ DL [place] RN PRIMARY CARE RN Signed: 04/28/2023 14:18 DL [place]
--- OUTSIDE RECORDS SUMMARY | 2024-03-23 01:11 | XMS_ITS | Encounter Summary ---
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 Name Role Phone BALTA MICHEL Primary Care [...] O MEDEX BRONZ E Apr 12, 2014 [id number] [phone] WILUSZ,TH OMAS PATIENT BCBS CT MEDICARE SUPPLEMEN KATHRYN MEDEX BRONZ E Mar 12, 2013 [id number] [phone] WILZ,TH OMAS PATIENT BCBS CT MEDICARE SUPPLEMEN KATHRYN MEDEX BRONZ E Mar 12, 2013 [id number] WILLOREN,TH OMAS PATIENT MEDICARE (WNR) MEDICARE (M) PART A Feb 10, 2013 PART A [id number] BENITO CARSON PATIENT MEDICARE (WNR) MEDICARE (M) PART B Feb 10, 2013 PART B [id number] BENITO CARSON PATIENT MEDICARE (WNR) MEDICARE (M) PART A Feb 10, 2013 PART A [id number] [id number] [phone] BENITO CARSON PATIENT MEDICARE (WNR) MEDICARE (M) PART B Feb 10, 2013 PART B [id number] TX12 [phone] BENITO CARSON PATIENT Selected Encounter This section includes the information on record at [place] for the Encounter. Date/Time Encounter Type Encounter Description Reason Provider Source Apr 28, 2023 02:15 PM OFFICE O/P EST SF 10 MIN PRIMARY CARE/MEDICINE ICD-10-CM L02.91 Cutaneous abscess, unspecified YANETH PAREKH Mike Encounter Template Text not used by [place] Assessments - Encounter Diagnoses This section includes the primary and secondary diagnoses documented for the Encounter. Date/Time Primary/Secondary Diagnosis Diagnosis Name Provider Source May 08, 2023 09:00 AM PRIMARY Cutaneous abscess, unspecified YANETH PAREKH [place] Plan of Treatment: Future Appointments (+ 6 months) and Future Tests (+/- 45 days) The Plan of Treatment section includes future care activities for the patient from all [place] treatmentfacilities. This section includes future appointments and future orders which are active, pending or scheduled. Future Appointments This section includes appointments that were scheduled to occur 6 months from the date of the Encounter, up to a maximum of 20 appointments. The data comes from all [place] treatment facilities. Appointment Date/Time Appointment Type Appointme nt Facility Name Apr 30, 2023 10:15 AM AMBULATORY - MEDICINE [facility] May 03, 2023 08:30 AM AMBULATORY - MEDICINE [place] C [facility] May 06, 2023 09:30 AM AMBULATORY - MEDICINE SPR[facility] May 07, 2023 10:15 AM AMBULATORY - MEDICINE SPR[facility] May 07, 2023 10:30 AM AMBULATORY - MEDICINE SPR[facility] May 13, 2023 11:00 AM AMBULATORY - PSYCHIATRY [facility] May 14, 2023 09:15 AM AMBULATORY - MEDICINE SPR[facility] May 14, 2023 09:30 AM [facility] May 17, 2023 10:10 AM AMBUL[place]ORY - [place]ICINE [place] [facility] Jun 10, 2023 11:00 AM AMBULATORY - PSYCHIATRY [facility] Jul 08, 2023 10:00 AM AMBULATORY - PSYCHIATRY [facility] August 12, 2023 11:00 AM AMBULATORY - PSYCHIATRY [facility] August 18, 2023 11:15 AM AMBULATORY - MEDICINE [facility] August 18, 2023 11:30 AM AMBULATORY - MEDICINE [facility] Sep 16, 2023 11:00 AM AMBULATORY - PSYCHIATRY [facility] Sep 22, 2023 12:00 PM [place]UL[place]ORY - [place] [facility] Lab Results: +/- 30 days of the encounter This section includes the Chemistry and Hematology Lab Results on record with [place] for the patient. Radiology Reports and Pathology Reports are provided separately, in subsequent sections. Lab Results This section contains the Chemistry/Hematology Results that were resulted 30 days before or 30 daysafter the date of the Encounter. Date/Time Source Result Type Result - Unit Interpretation Reference Range Comment Apr 28, 2023 01:39 PM [facility] MICROALBUMIN CREATININE RATIO PANEL Specimen Type: URINE No comment entered. Ordering Provider: JEAN MARIE MICHEL Report Released Date/Time: Apr 22, 2023 02:14 PM Reporting Lab: [facility] [address] [address] Performing Lab: [facility] [address] [address] MICROALBUMIN/C REATININE RATIO 10.6 mg/g 0-29.9 MICROALBUMIN,Q UANTITATIVE 1.6 mg/dL RR UNAVAIL CREATININE URINE 150.39 mg/dL Apr 28, 2023 01:39 PM [facility] LIPID PANEL FASTING Specimen Type: SERUM No comment entered. Ordering Provider: JEAN MARIE MICHEL Report Released Date/Time: Apr 22, 2023 02:14 PM Reporting Lab: [facility] [address] [address] Performing Lab: [facility] [address] [address] CHOLESTEROL 83 mg/dL TRIGLYCERIDE 57 mg/dL 0-150 LDL calculated 31 mg/dL 0-129 CHOL/HDL 2.0 HDL CHOLESTEROL 41 mg/dL 40-60 Apr 28, 2023 01:39 PM [facility] BASIC METABOLIC PANEL (fasting) Specimen Type: SERUM No comment entered. Ordering Provider: JEAN MARIE MICHEL Report Released Date/Time: Apr 22, 2023 02:14 PM Reporting Lab: [facility] [address] [address] Performing Lab: [address] [address] UREA NITROGEN 22 mg/dL 7-25 GLUCOSE 81 mg/dL 65-100 SODIUM 137 mmol/L 135-145 POTASSIUM 4.1 mmol/L 3.5-5.0 CHLORIDE 103 mmol/L 100-110 CO2 23 meq/L 20-30 CREATININE, Serum 1.18 mg/dL 0.50-1.40 eGFR(CKD-EPI 2020) 64 mL/min >60 Apr 28, 2023 01:39 PM [facility] LIVER FUNCTION Specimen Type: SERUM No comment entered. Ordering Provider: JEAN MARIE MICHEL Report Released Date/Time: Apr 22, 2023 02:14 PM Reporting Lab: [facility] [address] [address] Performing Lab: [address] [address] PROTEIN,TOTAL 6.5 g/dL 6.0-8.3 ALBUMIN 3.8 g/dL 3.5-5.0 ALKALINE PHOSPHATASE 109 U/L 40-150 AST 35 U/L H 5-34 ALT 36 U/L BILIRUBIN, TOTAL 1.0 mg/dL 0.2-1.2 Apr 28, 2023 01:39 PM [facility] HEMOGLOBIN A1C PANEL Specimen Type: BLOOD Comment: [...] 22, 2023 02:14 PM Reporting Lab: [facility] [address] [address] Performing Lab: [address] [address] HEMOGLOBIN A1C 5.6 4.0-5.6 Apr 28, 2023 01:39 PM [facility] TSH Specimen Type: SERUM No comment entered. Ordering Provider: JEAN MARIE MICHEL Report Released Date/Time: Apr 22, 2023 02:14 PM Reporting Lab: [address] [address] Performing Lab: [address] [address] TSH 2.38 u[IU]/mL 0.35-5.00 Apr 28, 2023 01:39 PM [facility] CBC AND DIFF (AUTO) Specimen Type: BLOOD No comment entered. Ordering Provider: JEAN MARIE MICHEL Report Released Date/Time: Apr 22, 2023 02:14 PM Reporting Lab: [address] [address] Performing Lab: [address] [address] WBC 4.69 10*3/uL 4.50-11.00 RBC 4.53 10*6/uL 4.23-5.66 HGB 12.7 g/dL L 12.8-17 HCT 38.4 L 39.2-50.4 MCV 84.8 fL 82-99 MCHC 33.1 g/dL 30.8-35.1 PLT 178 10*3/uL 140-360 RDW-CV 13.2 12.0-16.0 Mccone, Abs 0.47 10*3/uL 0.30-1.10 MCH 28.0 pg 26.2-32.6 Neut % 51.6 43.7-75.8 Lymph % 34.8 14.0-42.3 Mccone % 10.0 5.1-13.7 Eos % 2.8 0.4-6.8 [...] 121/78 mm[Hg] 16 /min 97 % 1 [facility] [place] Social History: Smoking Status (Most current) and Tobacco Use (All prior to encounter date) This section includes the most current, and the historical, smoking and tobacco- related health factors from the [place] facility where the Encounter took place. Current Smoking Status This section includes the most current smoking, or tobacco-related health factor, from the [place] facility where the Encounter took place. Date/Time Current Smoking Status Comment Facil ity Sep 29, 2022 10:30 AM VA-TOBACCO FORMER USER [place] Tobacco Use History This section includes a history of the smoking, or tobacco-related health factors, that were collected on or before the date of the Encounter. The data comes from the [place] facility where the Encounter took place. Date/Time Smoking Status/Tobacco Use Comment F acility Sep 29, 2022 10:30 AM VA-TOBACCO QUIT 15 YRS OR MORE [place] Jan 21, 2021 09:00 AM VA-TOBACCO NEVER USED [place] Feb 14, 2020 01:00 PM VA-TOBACCO FORMER USER [place] Feb 14, 2020 01:00 PM VA-TOBACCO QUIT 15 YRS OR MORE [place] Jul 05, 2018 03:54 PM VA-TOBACCO FORMER USER [place] Jul 05, 2018 03:54 PM VA-TOBACCO QUIT 15 YRS OR MORE [place] May 19, 2017 01:01 PM QUIT TOBACCO USE > 7 YEARS AGO [place] Apr 29, 2016 12:14 PM QUIT TOBACCO USE > 7 YEARS AGO Quit 20 years ago [place] Mar 21, 2015 02:25 PM QUIT TOBACCO USE > 7 YEARS AGO [place] May 03, 2012 12:04 PM QUIT TOBACCO USE > 7 YEARS AGO [place] Encounter Notes: All associated encounter notes This section contains the clinical notes associated to the Encounter. Date/Time Encounter Note(s) Provider Source Apr 28, 2023 01:59 PM NURSE PRACTITIONER NOTE: LOCAL TITLE: NURSE PRACTIONER/SICK VISIT STANDARD TITLE: NURSE PRACTITIONER NOTE DATE OF NOTE: APR 28, 2023@13:59 ENTRY DATE: APR 28, 2023@13:59:10 AUTHOR: YANETH PAREKH COSIGNER: URGENCY: STATUS: COMPLETED SICK CALL VISIT PETTY JOSE CARSON is a 73 y/o WHITE MALE who presents to [facility] sick call with c/o Wound on back x one month. Has progressively gotten bigger and started draining a couple days ago. Was very painful but this has eased up since it started draining. Denies fever. [place] PCP: ======= BALTA MICHEL VITAL SIGNS: Blood Pressure: 121/78 (04/28/2023 14:00) Pain: 1 (04/28/2023 14:00) Patient Height: 69 in [175.3 cm] (05/01/2021 13:16) Patient Weight: 211 lb [95.71 kg] (09/16/2022 11:01) Pulse: 78 (04/28/2023 14:00) Respiration: 16 (04/28/2023 14:00) Temperature: 98.2 F [36.8 C] (04/28/2023 14:00) REVIEW OF SYSTEMS: see HPI PHYSICAL EXAMINATION: General: Well-appearing in no obvious distress. Mental Status: Alert and oriented x4. Lungs: respirations easy and unlabored Integument: 5cm abscess right upper back, yellow/black center with significant periwound erythema. Psych: Normal mood and affect. Cooperative with exam, follows commands. ASSESSMENT/PLAN: 1. skin abscess upper back - I&D procedure explained and consent obtained. Site cleansed with alcohol, anesthetized with lidocaine 2%, approximately 2cc injected in fan method. Scalpel inserted at area of maximal fluctuation and large amount purulent drainage removed. Site cleansed and dressed with pressure dressing. Patient tolerated procedure well. Aftercare instructions given, instructed on s/s infection and when to seek emergent care. Patient lives alone and doesn't have anyone to change dressing for him so he will RTC in two days for bandage change and wound check. Keflex 500mg TID ordered x 7 days. MEDICATIONS reviewed with FOLLOW UP: Return to clinic 2 days for bandage change and wound check. UPCOMING APPOINTMENTS: No data available /lili/ SHANELL MCCARTHY CERTIFIED NURSE PRACTITIONER Signed: 04/28/2023 14:38 YANETH PAREKH [place]
--- OUTSIDE RECORDS SUMMARY | 2024-03-23 01:11 | XMS_ITS | Encounter Summary ---
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 Name Role Phone BALTA MICHEL Primary Care [...] O MEDEX BRONZ E Apr 12, 2014 [id number] LOREN, OMAS PATIENT [place] MEDICARE SUPPLEMEN KATHRYN MEDEX BRONZ E Mar 12, 2013 [id number] [phone] ALLI, OMAS PATIENT [place] SUPPLE[place] KATHRYN MEDEX BRONZ E Mar 12, 2013 [id number] [phone] ALLI,BENITO OMAS PATIENT MEDICARE (WNR) MEDICARE (M) PART A Feb 10, 2013 PART A [id number] BENITO CARSON PATIENT MEDICARE (WNR) MEDICARE (M) PART B Feb 10, 2013 PART B [id number] BENITO CARSON PATIENT MEDICARE (WNR) MEDICARE (M) PART A Feb 10, 2013 PART A [id number] BENITO CARSON PATIENT MEDICARE (WNR) MEDICARE (M) PART B Feb 10, 2013 PART B [id number] TX12 BENITO CARSON PATIENT Selected Encounter This section includes the information on record at [place] for the Encounter. Date/Time Encounter Type Encounter Description Reason Pro vider Source Apr 30, 2023 10:28 AM Outpatient Encounter PRIMARY CARE/MEDICINE IHE Encounter Template Text not used by [place] Plan of Treatment: Future Appointments (+ 6 months) and Future Tests (+/- 45 days) The Plan of Treatment section includes future care activities for the patient from all [place] treatmentfacilities. This section includes future appointments and future orders which are active, pending or scheduled. Future Appointments This section includes appointments that were scheduled to occur 6 months from the date of the Encounter, up to a maximum of 20 appointments. The data comes from all [place] treatment facilities. Appointment Date/Time Appointment Type Appointme nt Facility Name May 03, 2023 08:30 [facility] May 06, 2023 09:30 AM [facility] May 07, 2023 10:15 AM [facility] May 07, 2023 10:30 AM [facility]INE [facility] May 13, 2023 11:00 AM AMBULATORY - PSYCHIATRY [facility] May 14, 2023 09:15 AM [facility] - MEDICINE [facility] May 14, 2023 09:30 AM [facility] May 17, 2023 10:10 AM [facility] Jun 10, 2023 11:00 AM AM[facility]ULAT[facility] - PS[facility]CHIATRY [facility] Jul 08, 2023 10:00 AM AMBULATORY - PSYCHIATRY [facility] August 12, 2023 11:00 AM AMBULATORY - PSYCHIATRY [facility] August 18, 2023 11:15 AM AMBULATORY - MEDICINE [facility] August 18, 2023 11:30 AM AMBULATORY - MEDICINE [facility] Sep 16, 2023 11:00 AM AMBULATORY - PSYCHIATRY [facility] Sep 22, 2023 12:00 PM AMBULATORY - MEDICINE [facility] [place] [facility] [place] [facility] Oct 28, 2023 11:00 AM AMBULATORY - PSYCHIATRY [facility] Lab Results: +/- 30 days of the encounter This section includes the Chemistry and Hematology Lab Results on record with [place] for the patient. Radiology Reports and Pathology Reports are provided separately, in subsequent sections. Lab Results This section contains the Chemistry/Hematology Results that were resulted 30 days before or 30 daysafter the date of the Encounter. Date/Time Source Result Type Result - Unit Interpretation Reference Range Comment Apr 28, 2023 01:39 [facility] MICROALBUMIN CREATININE RATIO PANEL Specimen Type: URINE No comment entered. Ordering Provider: JEAN MARIE MICHEL Report Released Date/Time: Apr 22, 2023 02:14 PM Reporting Lab: [place] [facility] [address] [facility] [address] Performing Lab: [facility] [address] [address] MICROALBUMIN/C REATININE RATIO 10.6 mg/g 0-29.9 MICROALBUMIN,Q UANTITATIVE 1.6 mg/dL RR UNAVAIL CREATININE URINE 150.39 mg/dL Apr 28, 2023 01:39 PM [facility] LIPID PANEL FASTING Specimen Type: SERUM No comment entered. Ordering Provider: JEAN MARIE MICHEL Report Released Date/Time: Apr 22, 2023 02:14 PM Reporting Lab: [facility] [address] [facility] [address] Performing Lab: [facility] [address] [address] CHOLESTEROL 83 mg/dL TRIGLYCERIDE 57 mg/dL 0-150 LDL calculated 31 mg/dL 0-129 CHOL/HDL 2.0 HDL CHOLESTEROL 41 mg/dL 40-60 Apr 28, 2023 01:39 PM [facility] BASIC METABOLIC PANEL (fasting) Specimen Type: SERUM No comment entered. Ordering Provider: JEAN MARIE MICHEL Report Released Date/Time: Apr 22, 2023 02:14 PM Reporting Lab: [address] [address] Performing Lab: [address] [address] UREA NITROGEN 22 mg/dL 7-25 GLUCOSE 81 mg/dL 65-100 SODIUM 137 mmol/L 135-145 POTASSIUM 4.1 mmol/L 3.5-5.0 CHLORIDE 103 mmol/L 100-110 CO2 23 meq/L 20-30 CREATININE, Serum 1.18 mg/dL 0.50-1.40 eGFR(CKD-EPI 2020) 64 mL/min >60 Apr 28, 2023 01:39 PM [facility] LIVER FUNCTION Specimen Type: SERUM No comment entered. Ordering Provider: JEAN MARIE MICHEL Report Released Date/Time: Apr 22, 2023 02:14 PM Reporting Lab: [address] [address] Performing Lab: [address] [address] PROTEIN,TOTAL 6.5 g/dL 6.0-8.3 ALBUMIN 3.8 g/dL 3.5-5.0 ALKALINE PHOSPHATASE 109 U/L 40-150 AST 35 U/L H 5-34 ALT 36 U/L BILIRUBIN, TOTAL 1.0 mg/dL 0.2-1.2 Apr 28, 2023 01:39 PM [facility] HEMOGLOBIN A1C PANEL Specimen Type: BLOOD [...] Apr 22, 2023 02:14 PM Reporting Lab: [address] [place] [address] Performing Lab: [facility] [address] [facility] [address] HEMOGLOBIN A1C 5.6 4.0-5.6 Apr 28, 2023 01:39 PM [facility] TSH Specimen Type: SERUM No comment entered. Ordering Provider: JEAN MARIE MICHEL Report Released Date/Time: Apr 22, 2023 02:14 PM Reporting Lab: [facility] [address] [facility] [address] Performing Lab: [address] [address] TSH 2.38 u[IU]/mL 0.35-5.00 Apr 28, 2023 01:39 PM [facility] CBC AND DIFF (AUTO) Specimen Type: BLOOD No comment entered. Ordering Provider: JEAN MARIE MICHEL Report Released Date/Time: Apr 22, 2023 02:14 PM Reporting Lab: [facility] [address] [facility] [address] Performing Lab: [address] [address] WBC 4.69 10*3/uL 4.50-11.00 RBC 4.53 10*6/uL 4.23-5.66 HGB 12.7 g/dL L 12.8-17 HCT 38.4 L 39.2-50.4 MCV 84.8 fL 82-99 MCHC 33.1 g/dL 30.8-35.1 PLT 178 10*3/uL 140-360 RDW-CV 13.2 12.0-16.0 [place], Abs 0.47 10*3/uL 0.30-1.10 MCH 28.0 pg 26.2-32.6 Neut % 51.6 43.7-75.8 Lymph % 34.8 14.0-42.3 [place] % 10.0 5.1-13.7 Eos % 2.8 0.4-6.8 [...] Encounter Note(s) Provider Source Apr 30, 2023 10:28 AM PRIMARY CARE NOTE: LOCAL TITLE: WALK-IN NOTE PRIMARY CARE (T) STANDARD TITLE: PRIMARY CARE NOTE DATE OF NOTE: APR 30, 2023@10:28 ENTRY DATE: APR 30, 2023@10:28:13 AUTHOR: EDITH PADGETT COSIGNER: URGENCY: STATUS: COMPLETED <====Click to Start Advanced Medical Support Menasha presents to the Primary Care clinic with the following request: [ ]Medication Renewal/Refill [ ]Consultation with Team RN [ X ]Symptoms [ ]Other The states they are: [ X ]Waiting [ ]Not Waiting Yes Walk in visit scheduled with PACT Nurse [ X ] At this encounter the Menasha's demographics were verified. [ X ] At this encounter the Menasha's Insurance information was verified. [ X ] At this encounter the below scheduled visits for the Menasha were discussed and appointment reminder card was offered. Future appointments: 05/03/2023 08:30 CWM/SO/PACT 9 05/13/2023 11:00 CWM/SO/MHC/LUIS Changing dressing on back /es/ EDITH PADGETT [employer] SPECIALIST Signed: 04/30/2023 10:28 Receipt Acknowledged By: 04/30/2023 11:15 /es/ MAYDA GALLEGOS LPN LPN 04/30/2023 10:59 /es/ DESIREE HAWKINS,RN-BC REGISTERED NURSE (RN) EDITH PADGETT
--- OUTSIDE RECORDS SUMMARY | 2024-03-23 01:11 | XMS_ITS | Encounter Summary ---
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 Name Role Phone BALTA MICHEL Primary Care [...] O MEDEX BRONZ E Apr 12, 2014 [id number] WILUSZ,TH [place] PATIENT [place] SUPPLEMEN KATHRYN MEDEX BRONZ E Mar 12, 2013 [id number] [phone] WILZ,TH [place] KATHRYN MEDEX BRONZ E Mar 12, 2013 [id number] WILLOREN,TH OM[place] PATIENT MEDICARE (WNR) MEDICARE (M) PART A Feb 10, 2013 PART A [id number] BENITO CARSON PATIENT MEDICARE (WNR) MEDICARE (M) PART B Feb 10, 2013 PART B [id number] BENITO CARSON PATIENT MEDICARE (WNR) MEDICARE (M) PART A Feb 10, 2013 PART A [id number] [phone] BENITO CARSON PATIENT MEDICARE (WNR) MEDICARE (M) PART B Feb 10, 2013 PART B [id number] BEINTO CARSON PATIENT Selected Encounter This section includes the information [place] at [place] for the Encounter. Date/Time Encounter Type Encounter Description Reason Provider Source May 03, 2023 08:30 AM OFFICE O/P EST LOW 20 MIN PRIMARY CARE/MEDICINE ICD-10-CM L72.3 Sebaceous cyst MARILU,APOLI NARIO IHE Encounter Template Text not used by [place] Assessments - Encounter Diagnoses This section includes the primary and secondary diagnoses documented for the Encounter. Date/Time Primary/Secondary Diagnosis Diagnosis Name Provider Source May 11, 2023 02:37 PM PRIMARY Sebaceous cyst MARILU,APOLIN KALI [facility] May 11, 2023 02:37 PM SECONDARY Anemia, unspecified [facility]: Future Appointments (+ 6 [...] Appointment Type Appointme nt Facility Name May 06, 2023 09:30 AM [facility] May 07, 2023 10:15 AM [facility] May 07, 2023 10:30 AM [facility] May 13, 2023 11:00 AM AMBULATORY - PSY[facility]IATRY [facility] May 14, 2023 09:15 AM [facility] May 14, 2023 09:30 AM [facility] May 17, 2023 10:10 AM [place] [facility] Jun 10, 2023 11:00 AM AMBULATORY - PSYCHIATRY [facility] Jul 08, 2023 10:00 AM AMBULATORY - PSYCHIATRY [facility] August 12, 2023 11:00 AM AMBULATORY - PSYCHIATRY [facility] August 18, 2023 11:15 AM AMBULATORY - MEDICINE [facility] August 18, 2023 11:30 AM AMBULATORY - MEDICINE [facility] Sep 16, 2023 11:00 AM AMBULATORY - PSYCHIATRY [facility] Sep 22, 2023 12:00 PM AM[place]UL[place]ORY [place] [facility] Oct 28, 2023 11:00 AM AMBULATORY - PSYCHIATRY [facility] Nov 01, 2023 11:00 AM AM[place]UL[place]ORY [place] [facility] Lab Results: +/- 30 days of the [...] Range Comment Apr 28, 2023 01:39 PM [facility] MICROALBUMIN CREATININE RATIO PANEL Specimen Type: URINE No comment entered. Ordering Provider: JEAN MARIE MICHEL Report Released Date/Time: Apr 22, 2023 02:14 PM Reporting Lab: [facility] [address] [facility] [address] Performing Lab: [facility] [address] [facility] [address] MICROALBUMIN/C REATININE RATIO 10.6 mg/g 0-29.9 MICROALBUMIN,Q UANTITATIVE 1.6 mg/dL RR UNAVAIL CREATININE URINE 150.39 mg/dL Apr 28, 2023 01:39 PM [facility] LIPID PANEL FASTING Specimen Type: SERUM No comment entered. Ordering Provider: JEAN MARIE MICHEL Report Released Date/Time: Apr 22, 2023 02:14 PM Reporting Lab: [facility] [address] [address] Performing Lab: [facility] [address] [address] CHOLESTEROL 83 mg/dL TRIGLYCERIDE 57 mg/dL 0-150 LDL calculated 31 mg/dL 0-129 CHOL/HDL 2.0 HDL CHOLESTEROL 41 mg/dL 40-60 Apr 28, 2023 01:39 PM [facility] BASIC METABOLIC PANEL (fasting) Specimen Type: SERUM No comment entered. Ordering Provider: JEAN MARIE MICHEL Report Released Date/Time: Apr 22, 2023 02:14 PM Reporting Lab: [facility] [address] [address] Performing Lab: [address] [address] UREA NITROGEN 22 mg/dL 7-25 GLUCOSE 81 mg/dL 65-100 SODIUM 137 mmol/L 135-145 POTASSIUM 4.1 mmol/L 3.5-5.0 CHLORIDE 103 mmol/L 100-110 CO2 23 meq/L 20-30 CREATININE, Serum 1.18 mg/dL 0.50-1.40 eGFR(CKD-EPI 2020) 64 mL/min >60 Apr 28, 2023 01:39 PM [facility] LIVER FUNCTION Specimen Type: SERUM No comment entered. Ordering Provider: JEAN MARIE MICHEL Report Released Date/Time: Apr 22, 2023 02:14 PM Reporting Lab: [address] [address] Performing Lab: [address] [address] PROTEIN,TOTAL 6.5 g/dL 6.0-8.3 ALBUMIN 3.8 g/dL 3.5-5.0 ALKALINE PHOSPHATASE 109 U/L 40-150 AST 35 U/L H 5-34 ALT 36 U/L BILIRUBIN, TOTAL 1.0 mg/dL 0.2-1.2 Apr 28, 2023 01:39 PM [facility] HEMOGLOBIN A1C PANEL Specimen Type: BLOOD [...] Apr 22, 2023 02:14 PM Reporting Lab: [facility] [address] [address] Performing Lab: [facility] [address] [address] HEMOGLOBIN A1C 5.6 4.0-5.6 Apr 28, 2023 01:39 PM [facility] TSH Specimen Type: SERUM No comment entered. Ordering Provider: JEAN MARIE MICHEL Report Released Date/Time: Apr 22, 2023 02:14 PM Reporting Lab: [facility] [address] [address] Performing Lab: [facility] [address] [address] TSH 2.38 u[IU]/mL 0.35-5.00 Apr 28, 2023 01:39 PM [facility] CBC AND DIFF (AUTO) Specimen Type: BLOOD No comment entered. Ordering Provider: JEAN MARIE MICHEL Report Released Date/Time: Apr 22, 2023 02:14 PM Reporting Lab: [facility] [address] [address] Performing Lab: [facility] [address] [address] WBC 4.69 10*3/uL 4.50-11.00 RBC 4.53 10*6/uL 4.23-5.66 HGB 12.7 g/dL L 12.8-17 HCT 38.4 L 39.2-50.4 MCV 84.8 fL 82-99 MCHC 33.1 g/dL 30.8-35.1 PLT 178 10*3/uL 140-360 RDW-CV 13.2 12.0-16.0 Jack, Abs 0.47 10*3/uL 0.30-1.10 MCH 28.0 pg 26.2-32.6 Neut % 51.6 43.7-75.8 Lymph % 34.8 14.0-42.3 Jack % 10.0 5.1-13.7 Eos % 2.8 0.4-6.8 [...] 29, 2022 10:30 AM VA-TOBACCO FORMER USER [facility] Tobacco Use History This section includes a history of the smoking, or tobacco-related health factors, that were collected on or before the date of the Encounter. The data comes from the [place] facility where the Encounter took place. Date/Time Smoking Status/Tobacco Use Comment F acjaida Sep 29, 2022 10:30 AM VA-TOBACCO QUIT 15 YRS OR MORE [facility] Jan 21, 2021 09:00 AM VA-TOBACCO NEVER USED [facility] Feb 14, 2020 01:00 PM VA-TOBACCO FORMER USER [facility] Feb 14, 2020 01:00 PM VA-TOBACCO QUIT 15 YRS OR MORE [facility] Jul 05, 2018 03:54 PM VA-TOBACCO FORMER USER [facility] Jul 05, 2018 03:54 PM VA-TOBACCO QUIT 15 YRS OR MORE [facility] May 19, 2017 01:01 PM QUIT TOBACCO USE > 7 YEARS AGO [facility] Apr 29, 2016 12:14 PM QUIT TOBACCO USE > 7 YEARS AGO Quit 20 years ago [facility] Mar 21, 2015 02:25 PM QUIT TOBACCO USE > 7 YEARS AGO [facility] May 03, 2012 12:04 PM QUIT TOBACCO USE > 7 YEARS AGO [facility] Encounter Notes: All associated encounter notes This section contains the clinical notes associated to the Encounter. Date/Time Encounter Note(s) Provider Source May 03, 2023 09:06 AM PHYSICIAN NOTE: LOCAL TITLE: NOTE STANDARD TITLE: PHYSICIAN NOTE DATE OF NOTE: MAY 03, 2023@09:06 ENTRY DATE: MAY 03, 2023@09:06:44 AUTHOR: BALTA MICHEL EXP COSIGNER: URGENCY: STATUS: COMPLETED CC: 73 year old WHITE MALE SERVICE CONNECTED % - 70 HPI: Patient presents today for wound care; infected cyst which was incised minimally last Wednesday. Patient was placed on Keflex. Maureen Reynoso [facility]. PRovider is not comfortable with Lomotil Rx. Discussed the possibility of getting a second opinion. Patient also reports he has been placed on Repatha by his institutional cook. Patient is also here for review of labs. On the interim the patient reports a bout of IBS approximately a month ago. It resolved without much intervention other than the use of Lomotil. The patient also reports the GI work-up for anemia was inconclusive. They did not do an EGD although colonoscopy was done. Noted that after 9 months the anemia appears to be correcting although it is unclear whether there have been other changes on the interim. We did agree that we should monitor it in 3 months to see if other deficiencies might be in play. Problem list and medications reviewed. Last Labs: considerable improvement on lip profile; LFTs almost normal; anemia recovring Active problems - Computerized Problem List is the source for the followin. Normocytic anemia folllowed by [facility] hgb 11.9 (May 2022) 2. Osteoporosis DEXA June [address] 3[address] Co-management Dr. León, [facility] ([facility], [place] is primary) 4. Pain in right foot moves around 5. History of coronary artery disease with stent placement on ASA / statin followed by Dr. Jimenes, Cardiology cartoid u/s 02/2021 - no hemodynamically sifnidicant disease 6. Artificial knee joint present 7. Posttraumatic stress disorder Per 09/13/14 C&P assessment 8. Rotator cuff impingement syndrome 9. Major depressive disorder 10. Bereavement * 11. Anxiety State NEC 12. Screening for Malignant Neoplasms of colon 01/16/2007 Within normal limits no f/u mentioned in report 13. Hypothyroidism (SNOMED CT 54882328) levothyroxine 125mcg 14. Benign hypertension (SNOMED CT 36717055) on HCTZ / lisinopril 15. Hyperlipidemia (SNOMED CT 25058912) on high intensity atorvastatin / zetia 16. Tinnitus * 17. Osteoarthritis (SNOMED CT 622734032) PHYSICAL EXAMINATION/DIRECTED EXAM: BP:127/79 (05/03/2023 08:52) Resp:22 (05/03/2023 08:52) Temp:96.6 F [35.9 C] (05/03/2023 08:52) Pulse:69 (05/03/2023 08:52) WEIGHT 05/03/2023 08:52 218(98.88)[35*] 09/16/2022 11:01 211(95.71)[31*] 12/16/2021 13:40 212.4(96.34)[31*] Comfortable S1S2 RRR lungs CTA Benign abdomen No edema ASSESSMENT & PLAN: 73 year old MALE SERVICE CONNECTED % - 70 [place] presents for wound follow-up. The patient has fairly large cyst on the back which will require I&D and likely packing it. As the patient lives alone he might be required to come back for daily wound dressings. We did discuss the possibility of extending antibiotic but the main thing is to drain and remove the cyst wall which will be done immediately. History of IBS -as above will likely require intermittent prescriptions of Lomotil. Patient does have a pending vacation coming up sometime in late spring or early summer and will likely need a prescription. Chronic issues reviewed briefly; no changes to management unless specified above. RTC TIME ATTESTATION: Time spent directly with the patient was ( x ) 30 minutes More than 50% of the time spent with the patient included counselling regarding the admission Medical Review, History and Physical Examination, discussion of the findings, both remote and local data in the medical record, management, and patient education for the annotated medical conditions above. Discussed with patient and agrees to plan. VA and Non VA meds were reconciled. Today's documentation was made using voice recognition software. This note may contain spelling/grammatical errors secondary to this software. Patient provided copies of labs/studies and medication list. Upcoming Appointments: 05/13/2023 11:00 [facility] Med Reconciliation: Active Outpatient Medications (including Supplies): Active Outpatient Medications Status 1) ALIROCUMAB 75MG/ML INJ 1ML PEN INJECT [...] BY MOUTH ACTIVE ONCE DAILY FOR CHOLESTEROL Pending Outpatient Medications Status 1) CEPHALEXIN 500MG CAP TAKE ONE CAPSULE BY MOUTH THREE PENDING TIMES A DAY FOR INFECTION 2) HYDROPHILIC (EQV EUCERIN) TOP CREAM APPLY A LIBERAL PENDING AMOUNT TOPICALLY ONCE DAILY 3) TRANSPARENT DRESSING 6IN X 8IN APPLY 1 DRESSING PENDING TOPICALLY ONCE DAILY Active Non-VA Medications Status 1) Non-VA ASPIRIN 81MG EC TAB 81MG BY MOUTH DAILY ACTIVE 11 Total Medications Medication (Local) Status LEVOTHYROXINE NA (SYNTHROID) 125MCG TAB Directions: TAKE ONE TABLET BY MOUTH EVERY MORNING 30 MINUTES BEFORE BREAKFAST FOR THYROID - TAKE ON AN EMPTY STOMACH WITH A FULL GLASS OF WATER Quantity: 90 for 90 days Provider: BALTA MICHEL Expires: 03/26/23 Status: Medication (Remote) Status No remote medications found. /lili/ BALTA MICHEL MD PHYSICIAN Signed: 05/03/2023 09:48 BALTA MICHEL [facility] May 03, 2023 08:53 AM PREVENTIVE MEDICIN E NURSING NOTE: LOCAL TITLE: CLINICAL REMINDERS/NURSING STANDARD TITLE: PREVENTIVE MEDICINE NURSING NOTE DATE OF NOTE: MAY 03, 2023@08:53 ENTRY DATE: MAY 03, 2023@08:53:14 AUTHOR: MAYDA GALLEGOS EXP COSIGNER: URGENCY: STATUS: COMPLETED Suicide Screen: C-SSRS Screening [place] Suicide Severity Rating Scale (C-SSRS) screener 1. Over the past month, have you wished you were or wished you could go to sleep and not wake up? No 2. Over the past month, have you had any actual thoughts of killing yourself? No 3. Over the past month, have you been thinking about how you might do this? Response not required due to responses to other questions. 4. Over the past month, have you had these thoughts and had some intention of acting on them? Response not required due to responses to other questions. 5. Over the past month, have you started to work out or worked out the details of how to kill yourself? Response not required due to responses to other questions. 6. If yes, at any time in the past month did you intend to carry out this plan? Response not required due to responses to other questions. 7. In your lifetime, have you ever done anything, started to do anything, or prepared to do anything to end your life (for example, collected pills, obtained a gun, gave away valuables, went to the roof but didn't jump)? No 8. If YES, was this within the past 3 months? Response not required due to responses to other questions. Toxic Exposure Screening: The [place]/caregiver was asked if they believe the [place] experienced any toxic exposure(s), such as Airborne Hazards and Open Burn Pit, [place] War related exposures, Agent Dodge, Radiation, contaminated water at [place] or other such exposures, while serving in the [employer]. [place] has no concerns about toxic exposure(s) while serving in the [employer]. The [place]/caregiver was informed that we will continue to ask this screening question every 5 years. They can contact their provider/healthcare team if they have concerns about exposures and would like to be screened sooner. Printed information was offered and provided if desired. Falls & Incontinence Screen: Falls Screen: During the past 12 months, did the patient report any falls? 4. No falls within the past year. Incontinence Screen: During the past 12 months, has the patient has any characteristics of incontinence (ability, voiding, leakage, etc.)? No incontinence. Eye Care At-Risk Screen : Patient identified to be at risk for the following eye condition(s): MACULAR DEGENERATION: Macular Degeneration Risk Factors Information: Reminder Term: VA-AMD RISK FACTORS Encounter Diagnosis: 09/16/2022@11:00 I25.10 (ICD-10-CM) Atherosclerotic Heart Disease of [place] Coronary Artery without Angina Pectoris rank: PRIMARY Prov. Narr. - Atherosclerotic Heart Disease of [place] Coronary Artery without Angina Pectoris Action: Referral Ordered: Comprehensive Eye Exam Patient has active eye problems/symptoms. Schedule for a comprehensive eye exam ordered. Number provoded to the to schedule Eye Exam. MED REC COMPLETED BY PROVIDER DURING VISIT /es/ MAYDA GALLEGOS LPN LPN Signed: 05/03/2023 08:55 MAYDA GALLEGOS [facility]
--- OUTSIDE RECORDS SUMMARY | 2024-03-23 01:11 | XMS_ITS | Encounter Summary ---
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 Name Role Phone BALTA MICHEL Primary Care [...] Policy Ortiz's Name Patient's Relationship to Policy Oritz ELISABETH [place]BS OF [place] ([place]ARD) MEDICARE SUPPLEMEN KATHRYN PSUED O MEDEX BRONZ E Apr 12, 2014 [id number] WILL[place], [place] PATIENT [place] SUPP[place] KATHRYN MEDEX BRONZ E Mar 12, 2013 [id number] WILZ, [place] PATIENT [place] KATHRYN MEDEX BRONZ E Mar 12, 2013 [id number] ALLI,TH OMAS PATIENT MEDICARE (WNR) MEDICARE (M) PART B Feb 10, 2013 PART B [id number] TX12 BENITO CARSON PATIENT MEDICARE (WNR) MEDICARE (M) PART A Feb 10, 2013 PART A [id number] BENITO CARSON PATIENT MEDICARE (WNR) MEDICARE (M) PART A Feb 10, 2013 PART A [id number] TX12 BENITO CARSON PATIENT MEDICARE (WNR) MEDICARE (M) PART B Feb 10, 2013 PART B [id number] TX12 BENITO CARSON PATIENT Selected Encounter This section includes the information on record at [place] for the Encounter. Date/Time Encounter Type Encounter Description Reason Pro vider Source Apr 28, 2023 02:10 PM Outpatient Encounter EVENT (HISTORICAL) IHE Encounter Template Text not used by [place] Plan of Treatment: Future Appointments (+ 6 months) and Future Tests (+/- 45 days) The Plan of Treatment section includes future care activities for the patient from all [place] treatmentfacilities. This section includes future appointments and future orders which are active, pending or scheduled. Future Appointments This section includes appointments that were scheduled to occur 6 months from the date of the Encounter, up to a maximum of 20 appointments. The data comes from all [place] treatment facilities. Appointment Date/Time Appointment Type Appointme nt Facility Name Apr 30, 2023 10:15 AM [facility] May 03, 2023 08:30 AM AMBULATORY - MEDICINE [facility] May 06, 2023 09:30 AM [facility] May 07, 2023 10:15 AM [facility] May 07, 2023 10:30 AM [facility] May 13, 2023 11:00 AM AMBULATORY - PSYCHIATRY [facility] May 14, 2023 09:15 AM [facility] May 14, 2023 09:30 AM [facility] May 17, 2023 10:10 AM [facility]UL[facility] Jun 10, 2023 11:00 AM AMBULATORY - PSYCHIATRY [facility] Jul 08, 2023 10:00 AM AMBULATORY - PSYCHIATRY [facility] August 12, 2023 11:00 AM AMBULATORY - PSYCHIATRY [facility] August 18, 2023 11:15 AM AMBULATORY - MEDICINE [facility] August 18, 2023 11:30 AM AM[facility]UL[facility] Sep 16, 2023 11:00 AM AMBULATORY - PSYCHIATRY [facility] Sep 22, 2023 12:00 PM [facility] Lab Results: +/- 30 days of the encounter This section includes the Chemistry and Hematology Lab Results on record with [place] for the patient. Radiology Reports and Pathology Reports are provided separately, in subsequent sections. Lab Results This section contains the Chemistry/Hematology Results that were resulted 30 days before or 30 daysafter the date of the Encounter. Date/Time Source Result Type Result - Unit Interpretation Reference Range Comment Apr 28, 2023 01:39 PM [facility] MICROALBUMIN CREATININE RATIO PANEL Specimen Type: URINE No comment entered. Ordering Provider: JEAN MARIE MICHEL Report Released Date/Time: Apr 22, 2023 02:14 PM Reporting Lab: [facility] [address] [address] Performing Lab: [facility] [address] [address] MICROALBUMIN/C REATININE RATIO 10.6 mg/g 0-29.9 MICROALBUMIN,Q UANTITATIVE 1.6 mg/dL RR UNAVAIL CREATININE URINE 150.39 mg/dL Apr 28, 2023 01:39 PM [facility] LIPID PANEL FASTING Specimen Type: SERUM No comment entered. Ordering Provider: JEAN MARIE MICHEL Report Released Date/Time: Apr 22, 2023 02:14 PM Reporting Lab: [facility] [address] [address] Performing Lab: [facility] [address] [address] CHOLESTEROL 83 mg/dL TRIGLYCERIDE 57 mg/dL 0-150 LDL calculated 31 mg/dL 0-129 CHOL/HDL 2.0 HDL CHOLESTEROL 41 mg/dL 40-60 Apr 28, 2023 01:39 PM [facility] BASIC METABOLIC PANEL (fasting) Specimen Type: SERUM No comment entered. Ordering Provider: JEAN MARIE MICHEL Report Released Date/Time: Apr 22, 2023 02:14 PM Reporting Lab: [address] [address] Performing Lab: [address] [address] UREA NITROGEN 22 mg/dL 7-25 GLUCOSE 81 mg/dL 65-100 SODIUM 137 mmol/L 135-145 POTASSIUM 4.1 mmol/L 3.5-5.0 CHLORIDE 103 mmol/L 100-110 CO2 23 meq/L 20-30 CREATININE, Serum 1.18 mg/dL 0.50-1.40 eGFR(CKD-EPI 2020) 64 mL/min >60 Apr 28, 2023 01:39 PM [facility] LIVER FUNCTION Specimen Type: SERUM No comment entered. Ordering Provider: JEAN MARIE MICHEL Report Released Date/Time: Apr 22, 2023 02:14 PM Reporting Lab: [address] [address] Performing Lab: [address] [address] PROTEIN,TOTAL 6.5 g/dL 6.0-8.3 ALBUMIN 3.8 g/dL 3.5-5.0 ALKALINE PHOSPHATASE 109 U/L 40-150 AST 35 U/L H 5-34 ALT 36 U/L BILIRUBIN, TOTAL 1.0 mg/dL 0.2-1.2 Apr 28, 2023 01:39 PM [facility] HEMOGLOBIN A1C PANEL Specimen Type: BLOOD [...] Apr 22, 2023 02:14 PM Reporting Lab: [address] [place] [address] Performing Lab: [facility] [address] [address] HEMOGLOBIN A1C 5.6 4.0-5.6 Apr 28, 2023 01:39 PM [facility] TSH Specimen Type: SERUM No comment entered. Ordering Provider: JEAN MARIE MICHEL Report Released Date/Time: Apr 22, 2023 02:14 PM Reporting Lab: [facility] [address] [address] Performing Lab: [address] [address] TSH 2.38 u[IU]/mL 0.35-5.00 Apr 28, 2023 01:39 PM [facility] CBC AND DIFF (AUTO) Specimen Type: BLOOD No comment entered. Ordering Provider: JEAN MARIE MICHEL Report Released Date/Time: Apr 22, 2023 02:14 PM Reporting Lab: [facility] [address] [address] Performing Lab: [address] [address] WBC 4.69 10*3/uL 4.50-11.00 RBC 4.53 10*6/uL 4.23-5.66 HGB 12.7 g/dL L 12.8-17 HCT 38.4 L 39.2-50.4 MCV 84.8 fL 82-99 MCHC 33.1 g/dL 30.8-35.1 PLT 178 10*3/uL 140-360 RDW-CV 13.2 12.0-16.0 Crisp, Abs 0.47 10*3/uL 0.30-1.10 MCH 28.0 pg 26.2-32.6 Neut % 51.6 43.7-75.8 Lymph % 34.8 14.0-42.3 Crisp % 10.0 5.1-13.7 Eos % 2.8 0.4-6.8 Baso % 0.6 0.1-2.0 Neut, Abs 2.42 10*3/uL 2.20-7.60 Lymph, Abs 1.63 10*3/uL 1.00-3.20 Eos, Abs 0.13 10*3/uL 0.03-0.44 Baso, Abs 0.03 10*3/uL 0.01-0.13 Immature Gran % 0.2 0.0-0.7 Immature Gran, Abs 0.01 10*3/uL 0.00-0.06
--- OUTSIDE RECORDS SUMMARY | 2024-03-23 01:11 | XMS_ITS | Encounter Summary ---
Author Name [facility] [place] [facility] [place] Address [address] [place] [address] Care Team Providers Care Pi/Senior Research Associate Name Role Phone BALTA MICHEL Primary Care [...] O MEDEX BRONZ E Apr 12, 2014 [id number] WILUSZ,TH [place] PATIENT [place] MEDICARE SUPPLEMEN KATHRYN MEDEX BRONZ E Mar 12, 2013 [id number] WILUSZ,TH [place] KATHRYN MEDEX BRONZ E Mar 12, 2013 [id number] WILLOREN,TH OMAS PATIENT MEDICARE (WNR) MEDICARE (M) PART B Feb 10, 2013 PART B [id number] BENITO CARSON PATIENT MEDICARE (WNR) MEDICARE (M) PART A Feb 10, 2013 PART A [id number] [phone] BENITO CARSON PATIENT MEDICARE (WNR) MEDICARE (M) PART A Feb 10, 2013 PART A [id number] TX12 BENITO CARSON PATIENT MEDICARE (WNR) MEDICARE (M) PART B Feb 10, 2013 PART B [id number] TX12 BENITO CARSON PATIENT Selected Encounter This section includes the information on record at [place] for the Encounter. Date/Time Encounter Type Encounter Description Reason Provider Source Apr 30, 2023 10:50 AM OFFICE O/P EST LOW 20 MIN PRIMARY CARE/MEDICINE ICD-10-CM L02.212 Cutaneous abscess of back [any part, except buttock] YANETH PAREKH Mike Encounter Template Text not used by [place] Assessments - Encounter Diagnoses This section includes the primary and secondary diagnoses documented for the Encounter. Date/Time Primary/Secondary Diagnosis Diagnosis Name Provider Source Apr 30, 2023 10:57 AM PRIMARY Cutaneous abscess of back [any part, except buttock] YANETH PAREKH Apr 30, 2023 10:57 AM SECONDARY Encounter for change or removal of surgical wound dressing YANETH PAREKH Plan of Treatment: Future Appointments (+ 6 months) and Future Tests (+/- 45 days) The Plan of Treatment section includes future care activities for the patient from all [place] treatmentfacilities. This section includes future appointments and future orders which are active, pending or scheduled. Future Appointments This section includes appointments that were scheduled to occur 6 months from the date of the Encounter, up to a maximum of 20 appointments. The data comes from all [place] treatment facilities. Appointment Date/Time Appointment Type Appointme nt Facility Name May 03, 2023 08:30 AM [place]ORY [place]ICINE [place] C [facility]ENNY DELONG [facility] May 06, 2023 09:30 AM [facility]ATORY - MEDICINE [facility] May 07, 2023 10:15 AM [facility]ICINE [facility] May 07, 2023 10:30 AM [facility] May 13, 2023 11:00 AM AMBULATORY - PS[facility]CHIATRY [facility] [place] May 14, 2023 09:15 AM AMBULATORY - MEDICINE [facility] May 14, 2023 09:30 AM [facility] May 17, 2023 10:10 AM [place] [facility] Jun 10, 2023 11:00 AM AMBULATORY - PSYCHIATRY [facility] Jul 08, 2023 10:00 AM AMBULATORY - PSYCHIATRY [facility] August 12, 2023 11:00 AM AMBULATORY - PSYCHIATRY [facility] August 18, 2023 11:15 AM AMBULATORY - MEDICINE [facility] August 18, 2023 11:30 AM AMBULATORY - MEDICINE [facility] Sep 16, 2023 11:00 AM AMBULATORY - PSYCHIATRY [facility] Sep 22, 2023 12:00 PM [place]INE [place] [facility] Oct 28, 2023 11:00 AM AMBULATORY - PSYCHIATRY [facility] Lab Results: +/- 30 days of the encounter This section includes the Chemistry and Hematology Lab Results on record with [place] for the patient. Radiology Reports and Pathology Reports are provided separately, in subsequent sections. Lab Results This section contains the Chemistry/Hematology Results that were resulted 30 days before or 30 daysafter the date of the Encounter. Date/Time Source Result Type Result - Unit Interpretation Reference Range Comment Apr 28, 2023 01:39 PM [facility] MICROALBUMIN CREATININE RATIO PANEL Specimen Type: URINE No comment entered. Ordering Provider: JEAN MARIE MICHEL Report Released Date/Time: Apr 22, 2023 02:14 PM Reporting Lab: [facility] [address] [facility] [address] Performing Lab: [facility] [address] [facility] [address] MICROALBUMIN/C REATININE RATIO 10.6 mg/g 0-29.9 MICROALBUMIN,Q UANTITATIVE 1.6 mg/dL RR UNAVAIL CREATININE URINE 150.39 mg/dL Apr 28, 2023 01:39 PM [facility] LIPID PANEL FASTING Specimen Type: SERUM No comment entered. Ordering Provider: JEAN MARIE MICHEL Report Released Date/Time: Apr 22, 2023 02:14 PM Reporting Lab: [facility] [address] [facility] [address] Performing Lab: [address] [address] CHOLESTEROL 83 mg/dL TRIGLYCERIDE 57 mg/dL 0-150 LDL calculated 31 mg/dL 0-129 CHOL/HDL 2.0 HDL CHOLESTEROL 41 mg/dL 40-60 Apr 28, 2023 01:39 PM [facility] LIVER FUNCTION Specimen Type: SERUM No comment entered. Ordering Provider: JEAN MARIE MICHEL Report Released Date/Time: Apr 22, 2023 02:14 PM Reporting Lab: [address] [address] Performing Lab: [address] [address] PROTEIN,TOTAL 6.5 g/dL 6.0-8.3 ALBUMIN 3.8 g/dL 3.5-5.0 ALKALINE PHOSPHATASE 109 U/L 40-150 AST 35 U/L H 5-34 ALT 36 U/L BILIRUBIN, TOTAL 1.0 mg/dL 0.2-1.2 Apr 28, 2023 01:39 PM [facility] BASIC METABOLIC PANEL (fasting) Specimen Type: SERUM No comment entered. Ordering Provider: JEAN MARIE MICHEL Report Released Date/Time: Apr 22, 2023 02:14 PM Reporting Lab: [address] [address] Performing Lab: [address] [address] UREA NITROGEN 22 mg/dL 7-25 GLUCOSE 81 mg/dL 65-100 SODIUM 137 mmol/L 135-145 POTASSIUM 4.1 mmol/L 3.5-5.0 CHLORIDE 103 mmol/L 100-110 CO2 23 meq/L 20-30 CREATININE, Serum 1.18 mg/dL 0.50-1.40 eGFR(CKD-EPI 2020) 64 mL/min >60 Apr 28, 2023 01:39 PM [facility] HEMOGLOBIN A1C PANEL Specimen Type: [...] Apr 22, 2023 02:14 PM Reporting Lab: [facility] [address] [address] Performing Lab: [facility] [address] [address] HEMOGLOBIN A1C 5.6 4.0-5.6 Apr 28, 2023 01:39 PM [facility] TSH Specimen Type: SERUM No comment entered. Ordering Provider: JEAN MARIE MICHEL Report Released Date/Time: Apr 22, 2023 02:14 PM Reporting Lab: [facility] [address] Performing Lab: [facility] [address] TSH 2.38 u[IU]/mL 0.35-5.00 Apr 28, 2023 01:39 PM [facility] CBC AND DIFF (AUTO) Specimen Type: BLOOD No comment entered. Ordering Provider: JEAN MARIE MICHEL Report Released Date/Time: Apr 22, 2023 02:14 PM Reporting Lab: [facility] [address] [address] Performing Lab: [facility] [address] WBC 4.69 10*3/uL 4.50-11.00 RBC 4.53 10*6/uL 4.23-5.66 HGB 12.7 g/dL L 12.8-17 HCT 38.4 L 39.2-50.4 MCV 84.8 fL 82-99 MCHC 33.1 g/dL 30.8-35.1 PLT 178 10*3/uL 140-360 RDW-CV 13.2 12.0-16.0 [place], Abs 0.47 10*3/uL 0.30-1.10 MCH 28.0 pg 26.2-32.6 Neut % 51.6 43.7-75.8 Lymph % 34.8 14.0-42.3 [place] % 10.0 5.1-13.7 Eos % 2.8 0.4-6.8 [...] Apr 30, 2023 11:02 AM 98.2 F [place] Social History: Smoking Status (Most current) and Tobacco Use (All prior to encounter date) This section includes the most current, and the historical, smoking and tobacco- related health factors from the [place] facility where the Encounter took place. Current Smoking Status This section includes the most current smoking, or tobacco-related health factor, from the [place] facility where the Encounter took place. Date/Time Current Smoking Status Comment Gonzalo lin Sep 29, 2022 10:30 AM VA-TOBACCO FORMER USER [place] Tobacco Use History This section includes a history of the smoking, or tobacco-related health factors, that were collected on or before the date of the Encounter. The data comes from the [place] facility where the Encounter took place. Date/Time Smoking Status/Tobacco Use Comment F katerine Sep 29, 2022 10:30 AM VA-TOBACCO QUIT 15 YRS OR MORE [place] Jan 21, 2021 09:00 AM VA-TOBACCO NEVER USED [place] Feb 14, 2020 01:00 PM VA-TOBACCO FORMER USER [place] Feb 14, 2020 01:00 PM VA-TOBACCO QUIT 15 YRS OR MORE [place] Jul 05, 2018 03:54 PM VA-TOBACCO FORMER USER [place] Jul 05, 2018 03:54 PM VA-TOBACCO QUIT 15 YRS OR MORE [place] May 19, 2017 01:01 PM QUIT TOBACCO USE > 7 YEARS AGO [place] Apr 29, 2016 12:14 PM QUIT TOBACCO USE > 7 YEARS AGO Quit 20 years ago [place] Mar 21, 2015 02:25 PM QUIT TOBACCO USE > 7 YEARS AGO [place] May 03, 2012 12:04 PM QUIT TOBACCO USE > 7 YEARS AGO [place] Encounter Notes: All associated encounter notes This section contains the clinical notes associated to the Encounter. Date/Time Encounter Note(s) Provider Source Apr 30, 2023 10:50 AM NURSE PRACTITIONER NOTE: LOCAL TITLE: NURSE PRACTIONER/SICK VISIT STANDARD TITLE: NURSE PRACTITIONER NOTE DATE OF NOTE: APR 30, 2023@10:50 ENTRY DATE: APR 30, 2023@10:50:31 AUTHOR: YANETH PAREKH EXP COSIGNER: URGENCY: STATUS: COMPLETED SICK CALL VISIT PETTY JOSE CARSON is a 73 y/o WHITE MALE [place] who presents to [facility] sick call with f/u Wound check. Had I&D of abscess right upper back on 04/28/22. Reports no pain to site. Initial post-I&D dressing still on and intact. Was started on ATB, has taken for two days. [place] PCP: ======= BALTA MICHEL VITAL SIGNS: Blood Pressure: 121/78 (04/28/2023 14:00) Pain: 1 (04/28/2023 14:00) Patient Height: 69 in [175.3 cm] (05/01/2021 13:16) Patient Weight: 211 lb [95.71 kg] (09/16/2022 11:01) Pulse: 78 (04/28/2023 14:00) Respiration: 16 (04/28/2023 14:00) Temperature: 98.2 F [36.8 C] (04/28/2023 14:00) REVIEW OF SYSTEMS: see HPI PHYSICAL EXAMINATION: General: Well-appearing [place] in no obvious distress. Mental Status: Alert and oriented x4. Lungs: respirations easy and unlabored Integument: Abscess site flat, large amount SS drainage on dressing. Minimal erythema jarvis-wound, small amount yellow active drainage from site. Psych: Normal mood and affect. Cooperative with exam, follows commands. ASSESSMENT/PLAN: 1. abscess right upper back, s/p I&D. Wound healing well, dressing changed today by RN. To see PCP in 3 days, recommend wound check and dressing change at that time as patient has no one at home to assist with this. Continue oral ATB as ordered. MEDICATIONS reviewed with [place] FOLLOW UP: Return to clinic 3-5 days if no improvement in symptoms. UPCOMING APPOINTMENTS: No data available /lili/ SHANELL MCCARTHY CERTIFIED NURSE PRACTITIONER Signed: 04/30/2023 10:58 YANETH PAREKH [place]
--- OUTSIDE RECORDS SUMMARY | 2024-03-23 01:12 | XMS_ITS | Encounter Summary ---
Author Name [facility] [place] [facility] [place] Address [address] [place] [address] Care Team Providers Care Production Weigher Name Role Phone BALAT HANNA Primary Care Provider Unava ilable Insurance Providers: [...] O MEDEX BRONZ E Apr 12, 2014 [id number] WILLOREN, OMAS PATIENT BCBS [place] MEDICARE SUPPLEMEN KATHRYN MEDEX BRONZ E Mar 12, 2013 [id number] WILLOREN, OMAS PATIENT BCBS [place] MEDICARE SUPPLEMEN KATHRYN MEDEX BRONZ E Mar 12, 2013 [id number] ALLI,BENITO OMAS PATIENT MEDICARE (WNR) MEDICARE (M) PART B Feb 10, 2013 PART B [id number] BENITO CARSON PATIENT MEDICARE (WNR) MEDICARE (M) PART A Feb 10, 2013 PART A [id number] BENITO CARSON PATIENT MEDICARE (WNR) MEDICARE (M) PART A Feb 10, 2013 PART A [id number] [phone] BENITO CARSON PATIENT MEDICARE (WNR) MEDICARE (M) PART B Feb 10, 2013 PART B [id number] TX12 BENITO CARSON PATIENT Selected Encounter This section includes the information on record at [place] for the Encounter. Date/Time Encounter Type Encounter Description Reason Pro vider Source May 06, 2023 08:43 AM Outpatient Encounter PRIMARY CARE/MEDICINE [place] Encounter Template Text not used by [place] Plan of Treatment: Future Appointments (+ 6 months) and Future Tests (+/- 45 days) The Plan of Treatment section includes future care activities for the patient from all [place] treatmentfacilities. This section includes future appointments and future orders which are active, pending or scheduled. Future Appointments This section includes appointments that were scheduled to occur 6 months from the date of the Encounter, up to a maximum of 20 appointments. The data comes from all [place] treatment facilities. Appointment Date/Time Appointment Type Appointme nt Facility Name May 07, 2023 10:15 AM AMBULATORY - MEDICINE [facility] May 07, 2023 10:30 AM [facility] - MEDICINE [facility] May 13, 2023 11:00 AM AMBULATORY - PSYCHIATRY [facility] May 14, 2023 09:15 AM [facility] May 14, 2023 09:30 AM [facility] May 17, 2023 10:10 AM AM[place]ORY - [place]INE [place] C PATRICIAL WSTRChristiano [facility]ONG [facility] Jun 10, 2023 11:00 AM AMBULATORY - PSYCHIATRY [facility] Jul 08, 2023 10:00 AM AMBULATORY - PSYCHIATRY [facility] August 12, 2023 11:00 AM AMBULATORY - PSYCHIATRY [facility] August 18, 2023 11:15 AM AMBULATORY - MEDICINE [facility] August 18, 2023 11:30 AM AMBULATORY - MEDICINE [facility] Sep 16, 2023 11:00 AM AMBULATORY - PSYCHIATRY [facility] Sep 22, 2023 12:00 PM AM[place]UL[place] [facility] Oct 28, 2023 11:00 AM AMBULATORY - PSYCHIATRY [facility] Nov 01, 2023 11:00 AM [facility] - [facility] Lab Results: +/- 30 days of the encounter This section includes the Chemistry and Hematology Lab Results on record with [place] for the patient. Radiology Reports and Pathology Reports are provided separately, in subsequent sections. Lab Results This section contains the Chemistry/Hematology Results that were resulted 30 days before or 30 daysafter the date of the Encounter. Date/Time Source Result Type Result - Unit Interpretation Reference Range Comment Apr 28, 2023 01:39 PM [facility] MICROALBUMIN CREATININE RATIO PANEL Specimen Type: URINE No comment entered. Ordering Provider: JEAN MARIE HANNA Report Released Date/Time: Apr 22, 2023 02:14 PM Reporting Lab: [facility] [address] [facility] [address] Performing Lab: [facility] [address] [facility] [address] MICROALBUMIN/C REATININE RATIO 10.6 mg/g 0-29.9 MICROALBUMIN,Q UANTITATIVE 1.6 mg/dL RR UNAVAIL CREATININE URINE 150.39 mg/dL Apr 28, 2023 01:39 PM [facility] LIPID PANEL FASTING Specimen Type: SERUM No comment entered. Ordering Provider: JEAN MARIE HANNA Report Released Date/Time: Apr 22, 2023 02:14 PM Reporting Lab: [facility] [address] [facility] [address] Performing Lab: [facility] [address] [facility] [address] CHOLESTEROL 83 mg/dL TRIGLYCERIDE 57 mg/dL 0-150 LDL calculated 31 mg/dL 0-129 CHOL/HDL 2.0 HDL CHOLESTEROL 41 mg/dL 40-60 Apr 28, 2023 01:39 PM [facility] LIVER FUNCTION Specimen Type: SERUM No comment entered. Ordering Provider: JEAN MARIE HANNA Report Released Date/Time: Apr 22, 2023 02:14 PM Reporting Lab: [address] [address] Performing Lab: [address] [address] PROTEIN,TOTAL 6.5 g/dL 6.0-8.3 ALBUMIN 3.8 g/dL 3.5-5.0 ALKALINE PHOSPHATASE 109 U/L 40-150 AST 35 U/L H 5-34 ALT 36 U/L BILIRUBIN, TOTAL 1.0 mg/dL 0.2-1.2 Apr 28, 2023 01:39 PM [facility] BASIC METABOLIC PANEL (fasting) Specimen Type: SERUM No comment entered. Ordering Provider: JEAN MARIE HANNA Report Released Date/Time: Apr 22, 2023 02:14 PM Reporting Lab: [address] [address] Performing Lab: [address] [address] UREA NITROGEN 22 mg/dL 7-25 GLUCOSE 81 mg/dL 65-100 SODIUM 137 mmol/L 135-145 POTASSIUM 4.1 mmol/L 3.5-5.0 CHLORIDE 103 mmol/L 100-110 CO2 23 meq/L 20-30 CREATININE, Serum 1.18 mg/dL 0.50-1.40 eGFR(CKD-EPI 2020) 64 mL/min >60 Apr 28, 2023 01:39 PM [facility] HEMOGLOBIN A1C PANEL Specimen Type: BLOOD Comment: Values obtained from A1C measurements can vary. For atypical A1C assays, a reported value of 7.0 could actually be between 6.72 and 7.28 if measured by a reference method. A reported value of 9.0 could actually be between 8.73 and 9.27. Ref: http://www.ngs p.org/CAPdata. asp Ordering Provider: JEAN MARIE HANNA Report Released Date/Time: Apr 22, 2023 02:14 PM Reporting Lab: [address] [address] Performing Lab: [facility] [address] [facility] [address] HEMOGLOBIN A1C 5.6 4.0-5.6 Apr 28, 2023 01:39 PM [facility] TSH Specimen Type: SERUM No comment entered. Ordering Provider: JEAN MARIE HANNA Report Released Date/Time: Apr 22, 2023 02:14 PM Reporting Lab: [facility] [address] [facility] [address] Performing Lab: [facility] [address] [facility] [address] TSH 2.38 u[IU]/mL 0.35-5.00 Apr 28, 2023 01:39 PM [facility] CBC AND DIFF (AUTO) Specimen Type: BLOOD No comment entered. Ordering Provider: JEAN MARIE HANNA Report Released Date/Time: Apr 22, 2023 02:14 PM Reporting Lab: [facility] [address] [facility] [address] Performing Lab: [facility] [address] [facility] [address] WBC 4.69 10*3/uL 4.50-11.00 RBC 4.53 10*6/uL 4.23-5.66 HGB 12.7 g/dL L 12.8-17 HCT 38.4 L 39.2-50.4 MCV 84.8 fL 82-99 MCHC 33.1 g/dL 30.8-35.1 PLT 178 10*3/uL 140-360 RDW-CV 13.2 12.0-16.0 [place], Abs 0.47 10*3/uL 0.30-1.10 MCH 28.0 pg 26.2-32.6 Neut % 51.6 43.7-75.8 Lymph % 34.8 14.0-42.3 [place] % 10.0 5.1-13.7 Eos % 2.8 0.4-6.8 [...] Encounter. Date/Time Encounter Note(s) Provider Source May 06, 2023 08:43 AM PRIMARY CARE SECUR E MESSAGING: LOCAL TITLE: PRIMARY CARE SECURE MESSAGING STANDARD TITLE: PRIMARY CARE SECURE MESSAGING DATE OF NOTE: MAY 06, 2023@08:43 ENTRY DATE: MAY 06, 2023@08:43:27 AUTHOR: MAYA MUÑOZ EXP COSIGNER: URGENCY: STATUS: COMPLETED PRIMARY CARE SECURE MESSAGING Has ADDENDA ------Original Message ----- Sent: 05/06/2023 08:38 AM ET From: PETTY CARSON To: Kilo HANNA_PRIMARY CARE_SPOPC Subject: Appointment:No Response from [facility] I have not received a response from [facility] surgical to address Dr Hanna's referral about the cyst on my back. /marito NAVARRO Signed: 05/06/2023 08:43 Receipt Acknowledged By: 05/06/2023 12:39 /es/ MAYDA GALLEGOS LPN LPN 05/06/2023 09:12 /lili/ DESIREE HAWKINS,RN-BC REGISTERED NURSE (RN) 05/06/2023 ADDENDUM STATUS: COMPLETED Called and advised him [facility] is working on getting his appt. scheduled. [place] will stop by the clinic to request that consult be printed out for him so he can call the schedule appt. himself. /lili/ DESIREE HAWKINS,RN-BC REGISTERED NURSE (RN) Signed: 05/06/2023 09:14 MAYA MUÑOZ [place] [facility]
--- OUTSIDE RECORDS SUMMARY | 2024-03-23 01:12 | XMS_ITS | Encounter Summary ---
Author Name [facility] [place] [facility] [place] [facility] [place] Address [address] [place] [address] Care Team Providers Care Buffer Nickel Name Role Phone BALTA MICHEL Primary Care [...] O MEDEX BRONZ E Apr 12, 2014 [id number] [phone] WILLOREN, OM[place] PATIENT [place] SU[place] KATHRYN MEDEX BRONZ E Mar 12, 2013 [id number] [place], [place] KATHRYN MEDEX BRONZ E Mar 12, 2013 [id number] [phone] ALLI,TH OMAS PATIENT MEDICARE (WNR) MEDICARE (M) PART B Feb 10, 2013 PART B [id number] BENITO CARSON PATIENT MEDICARE (WNR) MEDICARE (M) PART A Feb 10, 2013 PART A [id number] [phone] BENITO CARSON PATIENT MEDICARE (WNR) MEDICARE (M) PART A Feb 10, 2013 PART A [id number] TX12 BENITO CARSON PATIENT MEDICARE (WNR) MEDICARE (M) PART B Feb 10, 2013 PART B [id number] [id number] [phone] BENITO CARSON PATIENT Selected Encounter This section includes the information on record at [place] for the Encounter. Date/Time Encounter Type Encounter Description Reason Provider Source May 07, 2023 10:15 AM OFF/OP EST AUGUST X REQ PHY/QHP PRIMARY CARE/MEDICINE ICD-10-CM L02.212 Cutaneous abscess of back [any part, except buttock] DL [place] [facility] Encounter Template Text not used by [place] Assessments - Encounter Diagnoses This section includes the primary and secondary diagnoses documented for the Encounter. Date/Time Primary/Secondary Diagnosis Diagnosis Name Provider Source May 17, 2023 03:23 PM PRIMARY Cutaneous abscess of back [any part, except buttock] DL MONTANA [facility] Plan of Treatment: Future Appointments (+ 6 months) and Future Tests (+/- 45 days) The Plan of Treatment section includes future care activities for the patient from all [place] treatmentfacilities. This section includes future appointments and future orders which are active, pending or scheduled. Future Appointments This section includes appointments that were scheduled to occur 6 months from the date of the Encounter, up to a maximum of 20 appointments. The data comes from all [place] treatment facilities. Appointment Date/Time Appointment Type Appointme nt Facility Name May 13, 2023 11:00 AM AMBULATORY - PSYCHIATRY [facility] May 14, 2023 09:15 AM AMBULATORY - MEDICINE [facility] May 14, 2023 09:30 AM AMBULATORY - MEDICINE [facility] May 17, 2023 10:10 AM [place] [facility] [place] [facility] Jun 10, 2023 11:00 AM AMBULATORY - PSYCHIATRY [facility] Jul 08, 2023 10:00 AM AMBULATORY - PSYCHIATRY [facility] August 12, 2023 11:00 AM AMBULATORY - PSYCHIATRY [facility] August 18, 2023 11:15 AM AMBULATORY - MEDICINE [facility] August 18, 2023 11:30 AM AMBULATORY - MEDICINE [facility] Sep 16, 2023 11:00 AM AMBULATORY - PSYCHIATRY [facility] Sep 22, 2023 12:00 PM [place] [facility] Oct 28, 2023 11:00 AM AMBULATORY - PSYCHIATRY [facility] Nov 01, 2023 11:00 AM [place]ORY [place] [facility] Lab Results: +/- 30 days of the encounter This section includes the Chemistry and Hematology Lab Results on record with [place] for the patient. Radiology Reports and Pathology Reports are provided separately, in subsequent sections. Lab Results This section contains the Chemistry/Hematology Results that were resulted 30 days before or 30 daysafter the date of the Encounter. Date/Time Source Result Type Result - Unit Interpretation Reference Range Comment Apr 28, 2023 01:39 PM [facility] MICROALBUMIN CREATININE RATIO PANEL Specimen Type: URINE No comment entered. Ordering Provider: JEAN MARIE MICHEL Report Released Date/Time: Apr 22, 2023 02:14 PM Reporting Lab: [facility] [address] [facility] [address] Performing Lab: [facility] [address] [facility] [address] MICROALBUMIN/C REATININE RATIO 10.6 mg/g 0-29.9 MICROALBUMIN,Q UANTITATIVE 1.6 mg/dL RR UNAVAIL CREATININE URINE 150.39 mg/dL Apr 28, 2023 01:39 PM [facility] BASIC METABOLIC PANEL (fasting) Specimen Type: SERUM No comment entered. Ordering Provider: JEAN MARIE MICHEL Report Released Date/Time: Apr 22, 2023 02:14 PM Reporting Lab: [facility] [address] [facility] [address] Performing Lab: [facility] [address] [facility] [address] UREA NITROGEN 22 mg/dL 7-25 GLUCOSE 81 mg/dL 65-100 SODIUM 137 mmol/L 135-145 POTASSIUM 4.1 mmol/L 3.5-5.0 CHLORIDE 103 mmol/L 100-110 CO2 23 meq/L 20-30 CREATININE, Serum 1.18 mg/dL 0.50-1.40 eGFR(CKD-EPI 2020) 64 mL/min >60 Apr 28, 2023 01:39 PM [facility] HEMOGLOBIN A1C PANEL Specimen Type: BLOOD [...] Apr 22, 2023 02:14 PM Reporting Lab: [address] [address] Performing Lab: [address] [address] HEMOGLOBIN A1C 5.6 4.0-5.6 Apr 28, 2023 01:39 PM [facility] LIPID PANEL FASTING Specimen Type: SERUM No comment entered. Ordering Provider: JEAN MARIE MICHEL Report Released Date/Time: Apr 22, 2023 02:14 PM Reporting Lab: [address] [address] Performing Lab: [address] [address] CHOLESTEROL 83 mg/dL TRIGLYCERIDE 57 mg/dL 0-150 LDL calculated 31 mg/dL 0-129 CHOL/HDL 2.0 HDL CHOLESTEROL 41 mg/dL 40-60 Apr 28, 2023 01:39 PM [facility] LIVER FUNCTION Specimen Type: SERUM No comment entered. Ordering Provider: JEAN MARIE MICHEL Report Released Date/Time: Apr 22, 2023 02:14 PM Reporting Lab: [address] [address] Performing Lab: [facility] [address] [facility] [address] PROTEIN,TOTAL 6.5 g/dL 6.0-8.3 ALBUMIN 3.8 g/dL 3.5-5.0 ALKALINE PHOSPHATASE 109 U/L 40-150 AST 35 U/L H 5-34 ALT 36 U/L BILIRUBIN, TOTAL 1.0 mg/dL 0.2-1.2 Apr 28, 2023 01:39 PM [facility] TSH Specimen Type: SERUM No comment entered. Ordering Provider: JEAN MARIE MICHEL Report Released Date/Time: Apr 22, 2023 02:14 PM Reporting Lab: [address] [address] Performing Lab: [address] [address] TSH 2.38 u[IU]/mL 0.35-5.00 Apr 28, 2023 01:39 PM [facility] CBC AND DIFF (AUTO) Specimen Type: BLOOD No comment entered. Ordering Provider: JEAN MARIE MICHEL Report Released Date/Time: Apr 22, 2023 02:14 PM Reporting Lab: [address] [address] Performing Lab: [address] [address] WBC 4.69 10*3/uL 4.50-11.00 RBC 4.53 10*6/uL 4.23-5.66 HGB 12.7 g/dL L 12.8-17 HCT 38.4 L 39.2-50.4 MCV 84.8 fL 82-99 MCHC 33.1 g/dL 30.8-35.1 PLT 178 10*3/uL 140-360 RDW-CV 13.2 12.0-16.0 [place], Abs 0.47 10*3/uL 0.30-1.10 MCH 28.0 pg 26.2-32.6 Neut % 51.6 43.7-75.8 Lymph % 34.8 14.0-42.3 [place] % 10.0 5.1-13.7 Eos % 2.8 0.4-6.8 [...] Pain Height Weight Body Mass Index Source May 07, 2023 10:26 AM 98.7 63 125/74 16 97 0 [facility] IE Social History: Smoking Status (Most current) and Tobacco Use (All prior to encounter date) This section includes the most current, and the historical, smoking and tobacco- related health factors from the [place] facility where the Encounter took place. Current Smoking Status This section includes the most current smoking, or tobacco-related health factor, from the [place] facility where the Encounter took place. Date/Time Current Smoking Status Comment Gonzalo lin Sep 29, 2022 10:30 AM VA-TOBACCO FORMER USER [facility] Tobacco Use History This section includes a history of the smoking, or tobacco-related health factors, that were collected on or before the date of the Encounter. The data comes from the [place] facility where the Encounter took place. Date/Time Smoking Status/Tobacco Use Comment F acjaida Sep 29, 2022 10:30 AM VA-TOBACCO QUIT 15 YRS OR MORE [facility] Jan 21, 2021 09:00 AM VA-TOBACCO NEVER USED [facility] Feb 14, 2020 01:00 PM VA-TOBACCO FORMER USER [facility] Feb 14, 2020 01:00 PM VA-TOBACCO QUIT 15 YRS OR MORE [facility] Jul 05, 2018 03:54 PM VA-TOBACCO FORMER USER [facility] Jul 05, 2018 03:54 PM VA-TOBACCO QUIT 15 YRS OR MORE [facility] May 19, 2017 01:01 PM QUIT TOBACCO USE > 7 YEARS AGO [facility] Apr 29, 2016 12:14 PM QUIT TOBACCO USE > 7 YEARS AGO Quit 20 years ago [facility] Mar 21, 2015 02:25 PM QUIT TOBACCO USE > 7 YEARS AGO [facility] May 03, 2012 12:04 PM QUIT TOBACCO USE > 7 YEARS AGO [facility] Encounter Notes: All associated encounter notes This section contains the clinical notes associated to the Encounter. Date/Time Encounter Note(s) Provider Source May 07, 2023 10:31 AM PRIMARY CARE NOTE: LOCAL TITLE: WALK-IN NOTE PRIMARY CARE (T) STANDARD TITLE: PRIMARY CARE NOTE DATE OF NOTE: MAY 07, 2023@10:31 ENTRY DATE: MAY 07, 2023@10:31:26 AUTHOR: DL [place] COSIGNER: URGENCY: STATUS: COMPLETED Data: 73year old MALE Jadwin reports to Primary Care clinic for Walk-In visit. 's PCP is BALTA MICHEL, last visit with PCP was , next visit scheduled for . Today Vet walks in to clinic to have back reassessed. Last recorded Vital Signs are: Temperature:98.7 F [37.1 C] (05/07/2023 10:26) Pulse:63 (05/07/2023 10:26) Blood Pressure:125/74 (05/07/2023 10:26) Respiration:16 (05/07/2023 10:26) Pain:0 (05/07/2023 10:26) Vet reports current allergies are: Remote Allergy [...] ONCE DAILY FOR HIGH BLOOD PRESSURE 6) HYDROPHILIC (EQV EUCERIN) TOP CREAM APPLY A LIBERAL ACTIVE AMOUNT TOPICALLY ONCE DAILY FOR DRY SKIN 7) LISINOPRIL 10MG TAB TAKE ONE TABLET BY MOUTH ONCE ACTIVE DAILY TO CONTROL BLOOD PRESSURE 8) ROSUVASTATIN CA 40MG TAB TAKE ONE TABLET BY MOUTH ACTIVE ONCE DAILY FOR CHOLESTEROL 9) TRANSPARENT DRESSING 6IN X 8IN APPLY 1 DRESSING ACTIVE TOPICALLY ONCE DAILY Active Non-VA Medications Status = 1) Non-VA ASPIRIN 81MG EC TAB 81MG BY MOUTH DAILY ACTIVE 10 Total Medications Action: reports Dr Jacques pastrana AB, States he has a follow up with [facility] surgery on Wednesday for consult. Dressing clean dry and intact. minimal bloody drainage upon removal. Adrea is flatter with decrease erythema. referred to Maria Del Carmen Majano PROCEDURE RN for evaluation. Reminders Info Only: [facility] Video Connect Capable DUE NOW Mental Health Treatment Plan DUE NOW Medication Reconciliation DUE NOW /lili/ DL [place] RN PRIMARY CARE RN Signed: 05/07/2023 10:41 DL MONTA[place] [facility]
--- OUTSIDE RECORDS SUMMARY | 2024-03-23 01:12 | XMS_ITS ---
Author Name [facility] [place] Organization [facility] [place] [facility] [place] Address [address] [place] [address] Care Team Providers Care Jewelry Jobber Name Role Phone BALTA MICHEL Primary Care [...] O MEDEX BRONZ E Apr 12, 2014 [id number] [phone] LOREN, OMAS PATIENT BCBS [place] MEDICARE SUPPLEMEN KATHRYN MEDEX BRONZ E Mar 12, 2013 [id number] ALLI, OMAS PATIENT [place] MEDICARE SUPPLEMEN KATHRYN MEDEX BRONZ E Mar 12, 2013 [id number] [phone] ALLI,BENITO OMAS PATIENT MEDICARE (WNR) MEDICARE (M) PART A Feb 10, 2013 PART A [id number] TX12 BENITO CARSON PATIENT MEDICARE (WNR) MEDICARE (M) PART B Feb 10, 2013 PART B [id number] [id number] BENITO CARSON PATIENT MEDICARE (WNR) MEDICARE (M) PART A Feb 10, 2013 PART A [id number] TX12 [phone] BENITO CARSON PATIENT MEDICARE (WNR) MEDICARE (M) PART B Feb 10, 2013 PART B [id number] [id number] BENITO CARSON PATIENT Selected Encounter This section includes the information on record at [place] for the Encounter. Date/Time Encounter Type Encounter Description Reason Pro vider Source May 06, 2023 09:29 AM Outpatient Encounter PRIMARY CARE/MEDICINE [facility] Encounter Template Text not used by [place] Plan of Treatment: Future Appointments (+ 6 months) and Future Tests (+/- 45 days) The Plan of Treatment section includes future care activities for the patient from all [place] treatmentfacilities. This section includes future appointments and future orders which are active, pending or scheduled. Future Appointments This section includes appointments that were scheduled to occur 6 months from the date of the Encounter, up to a maximum of 20 appointments. The data comes from all [place] treatment facilities. Appointment Date/Time Appointment Type Appointme nt Facility Name May 07, 2023 10:15 AM AMBULATORY - MEDICINE [facility] May 07, 2023 10:30 AM [facility] May 13, 2023 11:00 AM AMBULATORY - PSYCHIATRY [facility] May 14, 2023 09:15 AM [facility] May 14, 2023 09:30 AM [facility] May 17, 2023 10:10 AM AMBULATORY - MEDICINE [place] C PATRICIAL [facility] Jun 10, 2023 11:00 AM AMBULATORY - PSYCHIATRY [facility] Jul 08, 2023 10:00 AM AMBULATORY - PSYCHIATRY [facility] August 12, 2023 11:00 AM AMBULATORY - PSYCHIATRY [facility] August 18, 2023 11:15 AM AMBULATORY - MEDICINE [facility] August 18, 2023 11:30 AM AMBULATORY - MEDICINE [facility] Sep 16, 2023 11:00 AM AMBULATORY - PSYCHIATRY [facility] Sep 22, 2023 12:00 PM [facility] Oct 28, 2023 11:00 AM AMBULATORY - PSYCHIATRY [facility] Nov 01, 2023 11:00 AM [facility] Lab Results: +/- 30 days of the encounter This section includes the Chemistry and Hematology Lab Results on record with [place] for the patient. Radiology Reports and Pathology Reports are provided separately, in subsequent sections. Lab Results This section contains the Chemistry/Hematology Results that were resulted 30 days before or 30 daysafter the date of the Encounter. Date/Time Source Result Type Result - Unit Interpretation Reference Range Comment Apr 28, 2023 01:39 PM [facility] MICROALBUMIN CREATININE RATIO PANEL Specimen Type: URINE No comment entered. Ordering Provider: JEAN MARIE MICHEL Report Released Date/Time: Apr 22, 2023 02:14 PM Reporting Lab: [facility] [address] [facility] [address] Performing Lab: [facility] [address] [facility] [address] MICROALBUMIN/C REATININE RATIO 10.6 mg/g 0-29.9 MICROALBUMIN,Q UANTITATIVE 1.6 mg/dL RR UNAVAIL CREATININE URINE 150.39 mg/dL Apr 28, 2023 01:39 PM [facility] BASIC METABOLIC PANEL (fasting) Specimen Type: SERUM No comment entered. Ordering Provider: JEAN MARIE MICHEL Report Released Date/Time: Apr 22, 2023 02:14 PM Reporting Lab: [facility] [address] [facility] [address] Performing Lab: [address] [address] UREA NITROGEN 22 mg/dL 7-25 GLUCOSE 81 mg/dL 65-100 SODIUM 137 mmol/L 135-145 POTASSIUM 4.1 mmol/L 3.5-5.0 CHLORIDE 103 mmol/L 100-110 CO2 23 meq/L 20-30 CREATININE, Serum 1.18 mg/dL 0.50-1.40 eGFR(CKD-EPI 2020) 64 mL/min >60 Apr 28, 2023 01:39 PM [facility] HEMOGLOBIN A1C PANEL Specimen Type: BLOOD Comment: [...] Apr 22, 2023 02:14 PM Reporting Lab: [address] [address] Performing Lab: [address] [address] HEMOGLOBIN A1C 5.6 4.0-5.6 Apr 28, 2023 01:39 PM [facility] LIPID PANEL FASTING Specimen Type: SERUM No comment entered. Ordering Provider: JEAN MARIE MICHEL Report Released Date/Time: Apr 22, 2023 02:14 PM Reporting Lab: [address] [address] Performing Lab: [address] [address] CHOLESTEROL 83 mg/dL TRIGLYCERIDE 57 mg/dL 0-150 LDL calculated 31 mg/dL 0-129 CHOL/HDL 2.0 HDL CHOLESTEROL 41 mg/dL 40-60 Apr 28, 2023 01:39 PM [facility] LIVER FUNCTION Specimen Type: SERUM No comment entered. Ordering Provider: JEAN MARIE MICHEL Report Released Date/Time: Apr 22, 2023 02:14 PM Reporting Lab: [address] [address] Performing Lab: [address] [address] PROTEIN,TOTAL 6.5 g/dL 6.0-8.3 ALBUMIN 3.8 g/dL 3.5-5.0 ALKALINE PHOSPHATASE 109 U/L 40-150 AST 35 U/L H 5-34 ALT 36 U/L BILIRUBIN, TOTAL 1.0 mg/dL 0.2-1.2 Apr 28, 2023 01:39 PM [facility] TSH Specimen Type: SERUM No comment entered. Ordering Provider: JEAN MARIE MICHEL Report Released Date/Time: Apr 22, 2023 02:14 PM Reporting Lab: [facility] [address] [facility] [address] Performing Lab: [address] [address] TSH 2.38 u[IU]/mL 0.35-5.00 Apr 28, 2023 01:39 PM [facility] CBC AND DIFF (AUTO) Specimen Type: BLOOD No comment entered. Ordering Provider: JEAN MARIE MICHEL Report Released Date/Time: Apr 22, 2023 02:14 PM Reporting Lab: [facility] [address] [facility] [address] Performing Lab: [address] [address] WBC 4.69 10*3/uL 4.50-11.00 RBC 4.53 10*6/uL 4.23-5.66 HGB 12.7 g/dL L 12.8-17 HCT 38.4 L 39.2-50.4 MCV 84.8 fL 82-99 MCHC 33.1 g/dL 30.8-35.1 PLT 178 10*3/uL 140-360 RDW-CV 13.2 12.0-16.0 [place], Abs 0.47 10*3/uL 0.30-1.10 MCH 28.0 pg 26.2-32.6 Neut % 51.6 43.7-75.8 Lymph % 34.8 14.0-42.3 [place] % 10.0 5.1-13.7 Eos % 2.8 0.4-6.8 [...] Encounter Note(s) Provider Source May 06, 2023 09:29 AM PRIMARY CARE NOTE: LOCAL TITLE: WALK-IN NOTE PRIMARY CARE (T) STANDARD TITLE: PRIMARY CARE NOTE DATE OF NOTE: MAY 06, 2023@09:29 ENTRY DATE: MAY 06, 2023@09:29:53 AUTHOR: PIA GU EXP COSIGNER: URGENCY: STATUS: COMPLETED <====Click to Start Advanced Medical Support presents to the Primary Care clinic with the following request: [ ]Medication Renewal/Refill [ ]Consultation with Team RN [ X ]Symptoms [ ]Other [facility] states they are: [ X ]Waiting [ ]Not Waiting Yes Walk in visit scheduled with PACT Nurse [ X ] At this encounter [facility]'s demographics were verified. [ X ] At this encounter [facility]'s Insurance information was verified. [ X ] At this encounter the below scheduled visits for [facility] were discussed and appointment reminder card was offered. Future appointments: 05/13/2023 11:00 [facility] WALK IN SICK CALL, REQUESTING A DRESSING CHANGE WAS SEEN BY PCP ON WEDNESDAY /lili/ IPA NAVARRO Signed: 05/06/2023 09:31 Receipt Acknowledged By: 05/06/2023 12:39 /es/ MAYDA GALLEGOS LPN LPN 05/06/2023 11:02 /es/ DL [place] RN PRIMARY CARE RN 05/06/2023 10:08 /es/ ANNALISA HAWKINSN,RN-BC REGISTERED NURSE (RN) PIA GU
--- OUTSIDE RECORDS SUMMARY | 2024-03-23 01:12 | XMS_ITS | Encounter Summary ---
Author Name [facility] [place] [facility] [place] Organization [facility] [place] [facility] [place] Address [address] [place] [address] Care Team Providers Care Wood Turning Lathe Operator Name Role Phone BALTA MICHEL Primary [...] O MEDEX BRONZ E Apr 12, 2014 [id number] LOREN, OM[place] PATIENT [place] MED[place] SUPPLEMEN KATHRYN MEDEX BRONZ E Mar 12, 2013 [id number] [phone] ALLI, OM[place] PATIENT [place] SUPPLE[place] KATHRYN MEDEX BRONZ E Mar 12, 2013 [id number] ALLI,BENITO OMAS PATIENT MEDICARE (WNR) MEDICARE (M) PART A Feb 10, 2013 PART A [id number] TX12 BENITO CARSON PATIENT MEDICARE (WNR) MEDICARE (M) PART B Feb 10, 2013 PART B [id number] TX12 BENITO CARSON PATIENT MEDICARE (WNR) MEDICARE (M) PART A Feb 10, 2013 PART A [id number] TX12 BENITO CARSON PATIENT MEDICARE (WNR) MEDICARE (M) PART B Feb 10, 2013 PART B [id number] TX12 BENITO CARSON PATIENT Selected Encounter This section includes the information on record at [place] for the Encounter. Date/Time Encounter Type Encounter Description Reason Pro vider Source May 07, 2023 08:55 AM Outpatient Encounter PRIMARY CARE/MEDICINE IHE Encounter Template Text not used by [place] Plan of Treatment: Future Appointments (+ 6 months) and Future Tests (+/- 45 days) The Plan of Treatment section includes future care activities for the patient from all [place] treatmentfacilities. This section includes future appointments and future orders which are active, pending or scheduled. Future Appointments This section includes appointments that were scheduled to occur 6 months from the date of the Encounter, up to a maximum of 20 appointments. The data comes from all [place] treatment facilities. Appointment Date/Time Appointment Type Appointme nt Facility Name May 13, 2023 11:00 AM AMBULATORY - PSYCHIATRY [facility] May 14, 2023 09:15 AM AMBULATORY - MEDICINE [facility] May 14, 2023 09:30 AM AMBULATORY - MEDICINE [facility] May 17, 2023 10:10 AM [facility] Jun 10, 2023 11:00 AM AMBULATORY - PSYCHIATRY [facility] Jul 08, 2023 10:00 AM AMBULATORY - PSYCHIATRY [facility] August 12, 2023 11:00 AM AMBULATORY - PSYCHIATRY [facility] August 18, 2023 11:15 AM AMBULATORY - MEDICINE [facility] August 18, 2023 11:30 AM AMBULATORY - MEDICINE [facility] Sep 16, 2023 11:00 AM AMBULATORY - PSYCHIATRY [facility] Sep 22, 2023 12:00 PM [facility] [place] [facility] Oct 28, 2023 11:00 AM AMBULATORY - PSYCHIATRY [facility] Nov 01, 2023 11:00 AM AMBULATORY - MEDICINE [facility] Lab Results: +/- 30 days of the encounter This section includes the Chemistry and Hematology Lab Results on record with [place] for the patient. Radiology Reports and Pathology Reports are provided separately, in subsequent sections. Lab Results This section contains the Chemistry/Hematology Results that were resulted 30 days before or 30 daysafter the date of the Encounter. Date/Time Source Result Type Result - Unit Interpretation Reference Range Comment Apr 28, 2023 01:39 PM [facility] MICROALBUMIN CREATININE RATIO PANEL Specimen Type: URINE No comment entered. Ordering Provider: JEAN MARIE MICHEL Report Released Date/Time: Apr 22, 2023 02:14 PM Reporting Lab: [address] [address] Performing Lab: [address] [address] MICROALBUMIN/C REATININE RATIO 10.6 mg/g 0-29.9 MICROALBUMIN,Q UANTITATIVE 1.6 mg/dL RR UNAVAIL CREATININE URINE 150.39 mg/dL Apr 28, 2023 01:39 PM [facility] LIPID PANEL FASTING Specimen Type: SERUM No comment entered. Ordering Provider: JEAN MARIE MICHEL Report Released Date/Time: Apr 22, 2023 02:14 PM Reporting Lab: [address] [address] Performing Lab: [address] [address] CHOLESTEROL 83 mg/dL TRIGLYCERIDE 57 mg/dL 0-150 LDL calculated 31 mg/dL 0-129 CHOL/HDL 2.0 HDL CHOLESTEROL 41 mg/dL 40-60 Apr 28, 2023 01:39 PM [facility] BASIC METABOLIC PANEL (fasting) Specimen Type: SERUM No comment entered. Ordering Provider: JEAN MARIE MICHEL Report Released Date/Time: Apr 22, 2023 02:14 PM Reporting Lab: [address] [place] [address] Performing Lab: [facility] [address] [facility] [address] UREA NITROGEN 22 mg/dL 7-25 GLUCOSE 81 mg/dL 65-100 SODIUM 137 mmol/L 135-145 POTASSIUM 4.1 mmol/L 3.5-5.0 CHLORIDE 103 mmol/L 100-110 CO2 23 meq/L 20-30 CREATININE, Serum 1.18 mg/dL 0.50-1.40 eGFR(CKD-EPI 2020) 64 mL/min >60 Apr 28, 2023 01:39 PM [facility] LIVER FUNCTION Specimen Type: SERUM No comment entered. Ordering Provider: JEAN MARIE MICHEL Report Released Date/Time: Apr 22, 2023 02:14 PM Reporting Lab: [facility] [address] [facility] [address] Performing Lab: [address] [address] PROTEIN,TOTAL 6.5 g/dL 6.0-8.3 ALBUMIN 3.8 g/dL 3.5-5.0 ALKALINE PHOSPHATASE 109 U/L 40-150 AST 35 U/L H 5-34 ALT 36 U/L BILIRUBIN, TOTAL 1.0 mg/dL 0.2-1.2 Apr 28, 2023 01:39 PM [facility] HEMOGLOBIN A1C PANEL Specimen Type: BLOOD [...] Apr 22, 2023 02:14 PM Reporting Lab: [address] [address] Performing Lab: [address] [address] HEMOGLOBIN A1C 5.6 4.0-5.6 Apr 28, 2023 01:39 PM [facility] TSH Specimen Type: SERUM No comment entered. Ordering Provider: JEAN MARIE MICHEL Report Released Date/Time: Apr 22, 2023 02:14 PM Reporting Lab: [facility] [address] [facility] [address] Performing Lab: [address] [address] TSH 2.38 u[IU]/mL 0.35-5.00 Apr 28, 2023 01:39 PM [facility] CBC AND DIFF (AUTO) Specimen Type: BLOOD No comment entered. Ordering Provider: JEAN MARIE MICHEL Report Released Date/Time: Apr 22, 2023 02:14 PM Reporting Lab: [address] [address] Performing Lab: [address] [address] WBC 4.69 10*3/uL 4.50-11.00 RBC 4.53 10*6/uL 4.23-5.66 HGB 12.7 g/dL L 12.8-17 HCT 38.4 L 39.2-50.4 MCV 84.8 fL 82-99 MCHC 33.1 g/dL 30.8-35.1 PLT 178 10*3/uL 140-360 RDW-CV 13.2 12.0-16.0 Saunders, Abs 0.47 10*3/uL 0.30-1.10 MCH 28.0 pg 26.2-32.6 Neut % 51.6 43.7-75.8 Lymph % 34.8 14.0-42.3 Saunders % 10.0 5.1-13.7 Eos % 2.8 0.4-6.8 [...] Encounter Note(s) Provider Source May 07, 2023 08:56 AM MEDICATION MGT NOT E: LOCAL TITLE: OUTPATIENT MEDICATION REQUEST STANDARD TITLE: MEDICATION MGT NOTE DATE OF NOTE: MAY 07, 2023@08:56 ENTRY DATE: MAY 07, 2023@08:56:05 AUTHOR: MIGUEL HEAD EXP COSIGNER: URGENCY: STATUS: COMPLETED Mail LEVOTHYROXINE NA (SYNTHROID) TAB 125MCG TAKE ONE TABLET BY MOUTH EVERY MORNING 30 MINUTES BEFORE BREAKFAST FOR THYROID - TAKE ON AN EMPTY STOMACH WITH A FULL GLASS OF WATER /lili/ DESIREE HAWKINS,RN-BC REGISTERED NURSE (RN) Signed: 05/07/2023 08:56 Receipt Acknowledged By: 05/10/2023 08:43 /lili/ BALTA MICHEL MD PHYSICIAN MIGUEL [facility] [place]
--- OUTSIDE RECORDS SUMMARY | 2024-03-23 01:12 | XMS_ITS | Encounter Summary ---
Author Name [facility] [place] [facility] [place] [facility] [place] Address [address] [place] [address] Care Team Providers Care Psych Social Worker Name Role Phone BALTA MICHEL Primary Care [...] O MEDEX BRONZ E Apr 12, 2014 [id number] WILLOREN, OMAS PATIENT BCBS [place] MEDICARE SUPPLEMEN KATHRYN MEDEX BRONZ E Mar 12, 2013 [id number] WILLOREN, OMAS PATIENT BCBS [place] MEDICARE SUPPLEMEN KATHRYN MEDEX BRONZ E Mar 12, 2013 [id number] ALLI,BENITO OM[place] PATIENT MEDICARE (WNR) MEDICARE (M) PART B Feb 10, 2013 PART B [id number] TX12 BENITO CARSON PATIENT MEDICARE (WNR) MEDICARE (M) PART A Feb 10, 2013 PART A [id number] TX12 BENITO CARSON PATIENT MEDICARE (WNR) MEDICARE (M) PART A Feb 10, 2013 PART A [id number] TX12 BENITO CARSON PATIENT MEDICARE (WNR) MEDICARE (M) PART B Feb 10, 2013 PART B [id number] TX12 BENITO CARSON PATIENT Selected Encounter This section includes the information on record at [place] for the Encounter. Date/Time Encounter Type Encounter Description Reason Pro vider Source May 07, 2023 10:21 AM Outpatient Encounter PRIMARY CARE/MEDICINE IHE Encounter Template Text not used by [place] Plan of Treatment: Future Appointments (+ 6 months) and Future Tests (+/- 45 days) The Plan of Treatment section includes future care activities for the patient from all [place] treatmentfacilities. This section includes future appointments and future orders which are active, pending or scheduled. Future Appointments This section includes appointments that were scheduled to occur 6 months from the date of the Encounter, up to a maximum of 20 appointments. The data comes from all [place] treatment facilities. Appointment Date/Time Appointment Type Appointme nt Facility Name May 13, 2023 11:00 AM AMBULATORY - PSYCHIATRY SP [facility] May 14, 2023 09:15 AM AMBULATORY - MEDICINE [facility] May 14, 2023 09:30 AM AMBULATORY - MEDICINE [facility] May 17, 2023 10:10 AM [facility] [place] [facility] Jun 10, 2023 11:00 AM AMBULATORY - PSYCHIATRY [facility] Jul 08, 2023 10:00 AM AMBULATORY - PSYCHIATRY [facility] August 12, 2023 11:00 AM AMBULATORY - PSYCHIATRY [facility] August 18, 2023 11:15 AM AMBULATORY - MEDICINE [facility] August 18, 2023 11:30 AM AMBULATORY - MEDICINE [facility] Sep 16, 2023 11:00 AM AMBULATORY - PSYCHIATRY SP [facility] Sep 22, 2023 12:00 PM AMBULATORY - MEDICINE [place] [facility] [place] [facility] Oct 28, 2023 11:00 AM AMBULATORY - PSYCHIATRY [facility] Nov 01, 2023 11:00 AM AMBULATORY - MEDICINE [facility] Lab Results: +/- 30 days of the encounter This section includes the Chemistry and Hematology Lab Results on record with [place] for the patient. Radiology Reports and Pathology Reports are provided separately, in subsequent sections. Lab Results This section contains the Chemistry/Hematology Results that were resulted 30 days before or 30 daysafter the date of the Encounter. Date/Time Source Result Type Result - Unit Interpretation Reference Range Comment Apr 28, 2023 01:39 PM [facility] MICROALBUMIN CREATININE RATIO PANEL Specimen Type: URINE No comment entered. Ordering Provider: JEAN MARIE MICHEL Report Released Date/Time: Apr 22, 2023 02:14 PM Reporting Lab: [address] [address] Performing Lab: [address] [address] MICROALBUMIN/C REATININE RATIO 10.6 mg/g 0-29.9 MICROALBUMIN,Q UANTITATIVE 1.6 mg/dL RR UNAVAIL CREATININE URINE 150.39 mg/dL Apr 28, 2023 01:39 PM [facility] LIPID PANEL FASTING Specimen Type: SERUM No comment entered. Ordering Provider: JEAN MARIE MICHEL Report Released Date/Time: Apr 22, 2023 02:14 PM Reporting Lab: [address] [address] Performing Lab: [address] [address] CHOLESTEROL 83 mg/dL TRIGLYCERIDE 57 mg/dL 0-150 LDL calculated 31 mg/dL 0-129 CHOL/HDL 2.0 HDL CHOLESTEROL 41 mg/dL 40-60 Apr 28, 2023 01:39 PM [facility] LIVER FUNCTION Specimen Type: SERUM No comment entered. Ordering Provider: JEAN MARIE MICHEL Report Released Date/Time: Apr 22, 2023 02:14 PM Reporting Lab: [address] [address] Performing Lab: [address] [address] PROTEIN,TOTAL 6.5 g/dL 6.0-8.3 ALBUMIN 3.8 g/dL 3.5-5.0 ALKALINE PHOSPHATASE 109 U/L 40-150 AST 35 U/L H 5-34 ALT 36 U/L BILIRUBIN, TOTAL 1.0 mg/dL 0.2-1.2 Apr 28, 2023 01:39 PM [facility] BASIC METABOLIC PANEL (fasting) Specimen Type: SERUM No comment entered. Ordering Provider: JEAN MARIE MICHEL Report Released Date/Time: Apr 22, 2023 02:14 PM Reporting Lab: [address] [address] Performing Lab: [address] [address] UREA NITROGEN 22 mg/dL 7-25 GLUCOSE 81 mg/dL 65-100 SODIUM 137 mmol/L 135-145 POTASSIUM 4.1 mmol/L 3.5-5.0 CHLORIDE 103 mmol/L 100-110 CO2 23 meq/L 20-30 CREATININE, Serum 1.18 mg/dL 0.50-1.40 eGFR(CKD-EPI 2020) 64 mL/min >60 Apr 28, 2023 01:39 PM [facility] HEMOGLOBIN A1C PANEL Specimen Type: BLOOD Comment: [...] 22, 2023 02:14 PM Reporting Lab: [address] [address] Performing Lab: [address] [address] HEMOGLOBIN A1C 5.6 4.0-5.6 Apr 28, 2023 01:39 PM [facility] TSH Specimen Type: SERUM No comment entered. Ordering Provider: JEAN MARIE MICHEL Report Released Date/Time: Apr 22, 2023 02:14 PM Reporting Lab: [facility] [address] [facility] [address] Performing Lab: [address] [address] TSH 2.38 u[IU]/mL 0.35-5.00 Apr 28, 2023 01:39 PM [facility] CBC AND DIFF (AUTO) Specimen Type: BLOOD No comment entered. Ordering Provider: JEAN MARIE MICHEL Report Released Date/Time: Apr 22, 2023 02:14 PM Reporting Lab: [address] [address] Performing Lab: [address] [address] WBC 4.69 10*3/uL 4.50-11.00 RBC 4.53 10*6/uL 4.23-5.66 HGB 12.7 g/dL L 12.8-17 HCT 38.4 L 39.2-50.4 MCV 84.8 fL 82-99 MCHC 33.1 g/dL 30.8-35.1 PLT 178 10*3/uL 140-360 RDW-CV 13.2 12.0-16.0 [place], Abs 0.47 10*3/uL 0.30-1.10 MCH 28.0 pg 26.2-32.6 Neut % 51.6 43.7-75.8 Lymph % 34.8 14.0-42.3 [place] % 10.0 5.1-13.7 Eos % 2.8 0.4-6.8 [...] Encounter Note(s) Provider Source May 07, 2023 10:21 AM PRIMARY CARE NOTE: LOCAL TITLE: WALK-IN NOTE PRIMARY CARE (T) STANDARD TITLE: PRIMARY CARE NOTE DATE OF NOTE: MAY 07, 2023@10:21 ENTRY DATE: MAY 07, 2023@10:21:48 AUTHOR: ALIA SWAN EXP COSIGNER: URGENCY: STATUS: COMPLETED <====Click to Start Advanced Medical Support presents to the Primary Care clinic with the following request: [ ]Medication Renewal/Refill [ ]Consultation with Team RN [ X ]Symptoms [ ]Other The states they are: [ X ]Waiting [ ]Not Waiting Yes Walk in visit scheduled with PACT Nurse [ X ] At this encounter the 's demographics were verified. [ X ] At this encounter the 's Insurance information was verified. [ X ] At this encounter the below scheduled visits for the were discussed and appointment reminder card was offered. Future appointments: 05/07/2023 10:30 CWM/SO/SICK CALL HEALTH CARE ASSISTANT 05/13/2023 11:00 CWM/SO/MHC/LUIS 05/17/2023 10:10 COM CARE-GEN SURGERY IS HERE FOR DRESSING CHANGE /lili/ ALIA SWAN ADVANCE CATERING SERVER Signed: 05/07/2023 10:22 Receipt Acknowledged By: 05/07/2023 10:46 /es/ SHANELL MCCARTHY CERTIFIED NURSE PRACTITIONER 05/07/2023 10:53 /es/ DL [place] RN PRIMARY CARE RN ALIA SWAN
--- OUTSIDE RECORDS SUMMARY | 2024-03-23 01:12 | XMS_ITS ---
Author Name [facility] [place] Address [address] [place] [address] Care Team Providers Care Zookeeper Name Role Phone BALTA MICHEL Primary Care [...] O MEDEX BRONZ E Apr 12, 2014 [id number] LOREN, OM[place] PATIENT [place] KATHRYN MEDEX BRONZ E Mar 12, 2013 [id number] ALLI, OM[place] PATIENT [place] KATHRYN MEDEX BRONZ E Mar 12, 2013 [id number] [phone] ALLI,BENITO OMAS PATIENT MEDICARE (WNR) MEDICARE (M) PART A Feb 10, 2013 PART A [id number] TX12 BENITO CARSON PATIENT MEDICARE (WNR) MEDICARE (M) PART B Feb 10, 2013 PART B [id number] TX12 [phone] BENITO CARSON PATIENT MEDICARE (WNR) MEDICARE (M) PART A Feb 10, 2013 PART A [id number] TX12 [phone] BENITO CARSON PATIENT MEDICARE (WNR) MEDICARE (M) PART B Feb 10, 2013 PART B [id number] TX12 [phone] BENITO CARSON PATIENT Selected Encounter This section includes the information on record at [place] for the Encounter. Date/Time Encounter Type Encounter Description Reason Pro vider Source May 07, 2023 08:44 AM Outpatient Encounter PRIMARY CARE/MEDICINE IHE Encounter Template Text not used by [place] Plan of Treatment: Future Appointments (+ 6 months) and Future Tests (+/- 45 days) The Plan of Treatment section includes future care activities for the patient from all [place] treatmentfacilities. This section includes future appointments and future orders which are active, pending or scheduled. Future Appointments This section includes appointments that were scheduled to occur 6 months from the date of the Encounter, up to a maximum of 20 appointments. The data comes from all [place] treatment facilities. Appointment Date/Time Appointment Type Appointme nt Facility Name May 13, 2023 11:00 AM AMBULATORY - PSYCHIATRY [facility] May 14, 2023 09:15 AM AMBULATORY - MEDICINE [facility] May 14, 2023 09:30 AM AMBULATORY - MEDICINE [facility] May 17, 2023 10:10 AM [facility] [place] [facility] Jun 10, 2023 11:00 AM AMBULATORY - PS[facility]CHIATRY [facility] Jul 08, 2023 10:00 AM AMBULATORY - PSYCHIATRY [facility] August 12, 2023 11:00 AM AMBULATORY - PSYCHIATRY [facility] August 18, 2023 11:15 AM AMBULATORY - MEDICINE [facility] August 18, 2023 11:30 AM AMBULATORY - MEDICINE [facility] Sep 16, 2023 11:00 AM AMBULATORY - PSYCHIATRY SP [facility] Sep 22, 2023 12:00 PM [place] [facility] Oct 28, 2023 11:00 AM AMBULATORY - PSYCHIATRY [facility] Nov 01, 2023 11:00 AM AMBULATORY - MEDICINE [facility] Lab Results: +/- 30 days of the encounter This section includes the Chemistry and Hematology Lab Results on record with [place] for the patient. Radiology Reports and Pathology Reports are provided separately, in subsequent sections. Lab Results This section contains the Chemistry/Hematology Results that were resulted 30 days before or 30 daysafter the date of the Encounter. Date/Time Source Result Type Result - Unit Interpretation Reference Range Comment Apr 28, 2023 01:39 PM [facility] MICROALBUMIN CREATININE RATIO PANEL Specimen Type: URINE No comment entered. Ordering Provider: JEAN MARIE MICHEL Report Released Date/Time: Apr 22, 2023 02:14 PM Reporting Lab: [address] [address] Performing Lab: [address] [address] MICROALBUMIN/C REATININE RATIO 10.6 mg/g 0-29.9 MICROALBUMIN,Q UANTITATIVE 1.6 mg/dL RR UNAVAIL CREATININE URINE 150.39 mg/dL Apr 28, 2023 01:39 PM [facility] LIPID PANEL FASTING Specimen Type: SERUM No comment entered. Ordering Provider: JEAN MARIE MICHEL Report Released Date/Time: Apr 22, 2023 02:14 PM Reporting Lab: [address] [address] Performing Lab: [address] [address] CHOLESTEROL 83 mg/dL TRIGLYCERIDE 57 mg/dL 0-150 LDL calculated 31 mg/dL 0-129 CHOL/HDL 2.0 HDL CHOLESTEROL 41 mg/dL 40-60 Apr 28, 2023 01:39 PM [facility] BASIC METABOLIC PANEL (fasting) Specimen Type: SERUM No comment entered. Ordering Provider: JEAN MARIE MICHEL Report Released Date/Time: Apr 22, 2023 02:14 PM Reporting Lab: [address] [place] [address] Performing Lab: [facility] [address] [facility] [address] UREA NITROGEN 22 mg/dL 7-25 GLUCOSE 81 mg/dL 65-100 SODIUM 137 mmol/L 135-145 POTASSIUM 4.1 mmol/L 3.5-5.0 CHLORIDE 103 mmol/L 100-110 CO2 23 meq/L 20-30 CREATININE, Serum 1.18 mg/dL 0.50-1.40 eGFR(CKD-EPI 2020) 64 mL/min >60 Apr 28, 2023 01:39 PM [facility] LIVER FUNCTION Specimen Type: SERUM No comment entered. Ordering Provider: JEAN MARIE MICHEL Report Released Date/Time: Apr 22, 2023 02:14 PM Reporting Lab: [facility] [address] [facility] [address] Performing Lab: [address] [address] PROTEIN,TOTAL 6.5 g/dL 6.0-8.3 ALBUMIN 3.8 g/dL 3.5-5.0 ALKALINE PHOSPHATASE 109 U/L 40-150 AST 35 U/L H 5-34 ALT 36 U/L BILIRUBIN, TOTAL 1.0 mg/dL 0.2-1.2 Apr 28, 2023 01:39 PM [facility] HEMOGLOBIN A1C PANEL Specimen Type: [...] Apr 22, 2023 02:14 PM Reporting Lab: [address] [address] Performing Lab: [address] [address] HEMOGLOBIN A1C 5.6 4.0-5.6 Apr 28, 2023 01:39 PM [facility] TSH Specimen Type: SERUM No comment entered. Ordering Provider: JEAN MARIE MICHEL Report Released Date/Time: Apr 22, 2023 02:14 PM Reporting Lab: [facility] [address] [facility] [address] Performing Lab: [address] [address] TSH 2.38 u[IU]/mL 0.35-5.00 Apr 28, 2023 01:39 PM [facility] CBC AND DIFF (AUTO) Specimen Type: BLOOD No comment entered. Ordering Provider: JEAN MARIE MICHEL Report Released Date/Time: Apr 22, 2023 02:14 PM Reporting Lab: [address] [address] Performing Lab: [address] [address] WBC 4.69 10*3/uL 4.50-11.00 RBC 4.53 10*6/uL 4.23-5.66 HGB 12.7 g/dL L 12.8-17 HCT 38.4 L 39.2-50.4 MCV 84.8 fL 82-99 MCHC 33.1 g/dL 30.8-35.1 PLT 178 10*3/uL 140-360 RDW-CV 13.2 12.0-16.0 [place], Abs 0.47 10*3/uL 0.30-1.10 MCH 28.0 pg 26.2-32.6 Neut % 51.6 43.7-75.8 Lymph % 34.8 14.0-42.3 [place] % 10.0 5.1-13.7 Eos % 2.8 0.4-6.8 [...] Encounter Note(s) Provider Source May 07, 2023 08:44 AM PRIMARY CARE SECUR E MESSAGING: LOCAL TITLE: PRIMARY CARE SECURE MESSAGING STANDARD TITLE: PRIMARY CARE SECURE MESSAGING DATE OF NOTE: MAY 07, 2023@08:44 ENTRY DATE: MAY 07, 2023@08:44:55 AUTHOR: MAYA MUÑOZ EXP COSIGNER: URGENCY: STATUS: COMPLETED ------Original Message ----- Sent: 05/07/2023 08:37 AM ET From: PETTY CARSON To: Kilo MICHEL_PRIMARY CARE_[facility] Subject: Medication:Refill Thyroid Rx Please refill Levothyroxine 125mcg. /es/ MAYA NAVARRO Signed: 05/07/2023 08:44 Receipt Acknowledged By: 05/07/2023 09:28 /es/ MAYDA GALLEGOS LPN LPN 05/07/2023 08:54 /es/ ANNALISA HAWKINSN,RN-BC REGISTERED NURSE (RN) MAYA MUÑOZ [place] [facility]
--- OUTSIDE RECORDS SUMMARY | 2024-03-23 01:12 | XMS_ITS | Encounter Summary ---
Author Name [facility] [place] Address [address] [place] [address] Care Team Providers Care Cloth Bleaching Supervisor Name Role Phone BALTA MICHEL Primary Care [...] O MEDEX BRONZ E Apr 12, 2014 [id number] [place], OMAS PATIENT [place] MED[place] SUPPLEMEN KATHRYN MEDEX BRONZ E Mar 12, 2013 [id number] [phone] ALLI, OM[place] KATHRYN MEDEX [facility] E Mar 12, 2013 [id number] [phone] ALLI,BENITO OMAS PATIENT MEDICARE (WNR) MEDICARE (M) PART A Feb 10, 2013 PART A [id number] TX12 BENITO CARSON PATIENT MEDICARE (WNR) MEDICARE (M) PART B Feb 10, 2013 PART B [id number] TX12 BENITO CARSON PATIENT MEDICARE (WNR) MEDICARE (M) PART A Feb 10, 2013 PART A [id number] TX12 [phone] BENITO CARSON PATIENT MEDICARE (WNR) MEDICARE (M) PART B Feb 10, 2013 PART B [id number] TX12 BENITO CARSON PATIENT Selected Encounter This section includes the information on record at [place] for the Encounter. Date/Time Encounter Type Encounter Description Reason Provider Source May 06, 2023 09:30 AM OFF/OP EST AUGUST X REQ PHY/QHP PRIMARY CARE/MEDICINE ICD-10-CM L02.212 Cutaneous abscess of back [any part, except buttock] DL [place] [facility] Encounter Template Text not used by [place] Assessments - Encounter Diagnoses This section includes the primary and secondary diagnoses documented for the Encounter. Date/Time Primary/Secondary Diagnosis Diagnosis Name Provider Source May 06, 2023 11:19 AM PRIMARY Cutaneous abscess of back [any part, except buttock] DL [place] [facility] Plan of Treatment: Future Appointments (+ 6 months) and Future Tests (+/- 45 days) The Plan of Treatment section includes future care activities for the patient from all [place] treatmentfacilities. This section includes future appointments and future orders which are active, pending or scheduled. Future Appointments This section includes appointments that were scheduled to occur 6 months from the date of the Encounter, up to a maximum of 20 appointments. The data comes from all [place] treatment facilities. Appointment Date/Time Appointment Type Appointme nt Facility Name May 07, 2023 10:15 AM AMBULATORY - MEDICINE [facility] May 07, 2023 10:30 AM AMB[facility]ORY - MEDICINE [facility] May 13, 2023 11:00 AM AMBULATORY - PSYCHIATRY [facility] May 14, 2023 09:15 AM AMBULATORY - MEDICINE [facility] May 14, 2023 09:30 AM [facility] May 17, 2023 10:10 AM [facility] [place] [facility] Jun 10, 2023 11:00 AM AMBULATORY - PSYCHIATRY [facility] Jul 08, 2023 10:00 AM AMBULATORY - PSYCHIATRY [facility] August 12, 2023 11:00 AM AMBULATORY - PSYCHIATRY [facility] August 18, 2023 11:15 AM AMBULATORY - MEDICINE [facility] August 18, 2023 11:30 AM AMBULATORY - MEDICINE [facility] Sep 16, 2023 11:00 AM AMBULATORY - PSYCHIATRY [facility] Sep 22, 2023 12:00 PM AMBULATORY - [place]ICINE [place] [facility] Oct 28, 2023 11:00 AM AMBULATORY - PSYCHIATRY [facility] Nov 01, 2023 11:00 AM [facility] - [facility] Lab Results: +/- 30 days of the encounter This section includes the Chemistry and Hematology Lab Results on record with [place] for the patient. Radiology Reports and Pathology Reports are provided separately, in subsequent sections. Lab Results This section contains the Chemistry/Hematology Results that were resulted 30 days before or 30 daysafter the date of the Encounter. Date/Time Source Result Type Result - Unit Interpretation Reference Range Comment Apr 28, 2023 01:39 PM [facility] MICROALBUMIN CREATININE RATIO PANEL Specimen Type: URINE No comment entered. Ordering Provider: JEAN MARIE MICHEL Report Released Date/Time: Apr 22, 2023 02:14 PM Reporting Lab: [facility] [address] [address] Performing Lab: [facility] [address] [address] MICROALBUMIN/C REATININE RATIO 10.6 mg/g 0-29.9 MICROALBUMIN,Q UANTITATIVE 1.6 mg/dL RR UNAVAIL CREATININE URINE 150.39 mg/dL Apr 28, 2023 01:39 PM [facility] LIPID PANEL FASTING Specimen Type: SERUM No comment entered. Ordering Provider: JEAN MARIE MICHEL Report Released Date/Time: Apr 22, 2023 02:14 PM Reporting Lab: [address] [address] Performing Lab: [facility] [address] [address] CHOLESTEROL 83 mg/dL TRIGLYCERIDE 57 mg/dL 0-150 LDL calculated 31 mg/dL 0-129 CHOL/HDL 2.0 HDL CHOLESTEROL 41 mg/dL 40-60 Apr 28, 2023 01:39 PM [facility] BASIC METABOLIC PANEL (fasting) Specimen Type: SERUM No comment entered. Ordering Provider: JEAN MARIE MICHEL Report Released Date/Time: Apr 22, 2023 02:14 PM Reporting Lab: [facility] [address] [address] Performing Lab: [address] [address] UREA NITROGEN 22 mg/dL 7-25 GLUCOSE 81 mg/dL 65-100 SODIUM 137 mmol/L 135-145 POTASSIUM 4.1 mmol/L 3.5-5.0 CHLORIDE 103 mmol/L 100-110 CO2 23 meq/L 20-30 CREATININE, Serum 1.18 mg/dL 0.50-1.40 eGFR(CKD-EPI 2020) 64 mL/min >60 Apr 28, 2023 01:39 PM [facility] HEMOGLOBIN A1C PANEL Specimen Type: BLOOD Comment: [...] Apr 22, 2023 02:14 PM Reporting Lab: [facility] [address] [address] Performing Lab: [address] [address] HEMOGLOBIN A1C 5.6 4.0-5.6 Apr 28, 2023 01:39 PM [facility] LIVER FUNCTION Specimen Type: SERUM No comment entered. Ordering Provider: JEAN MARIE MICHEL Report Released Date/Time: Apr 22, 2023 02:14 PM Reporting Lab: [facility] [address] [address] Performing Lab: [address] [address] PROTEIN,TOTAL 6.5 g/dL 6.0-8.3 ALBUMIN 3.8 g/dL 3.5-5.0 ALKALINE PHOSPHATASE 109 U/L 40-150 AST 35 U/L H 5-34 ALT 36 U/L BILIRUBIN, TOTAL 1.0 mg/dL 0.2-1.2 Apr 28, 2023 01:39 PM [facility] TSH Specimen Type: SERUM No comment entered. Ordering Provider: JEAN MARIE MICHEL Report Released Date/Time: Apr 22, 2023 02:14 PM Reporting Lab: [address] [address] Performing Lab: [address] [address] TSH 2.38 u[IU]/mL 0.35-5.00 Apr 28, 2023 01:39 PM [facility] CBC AND DIFF (AUTO) Specimen Type: BLOOD No comment entered. Ordering Provider: JEAN MARIE MICHEL Report Released Date/Time: Apr 22, 2023 02:14 PM Reporting Lab: [address] [address] Performing Lab: [address] [address] WBC 4.69 10*3/uL 4.50-11.00 RBC 4.53 10*6/uL 4.23-5.66 HGB 12.7 g/dL L 12.8-17 HCT 38.4 L 39.2-50.4 MCV 84.8 fL 82-99 MCHC 33.1 g/dL 30.8-35.1 PLT 178 10*3/uL 140-360 RDW-CV 13.2 12.0-16.0 Coleman, Abs 0.47 10*3/uL 0.30-1.10 MCH 28.0 pg 26.2-32.6 Neut % 51.6 43.7-75.8 Lymph % 34.8 14.0-42.3 Coleman % 10.0 5.1-13.7 Eos % 2.8 0.4-6.8 [...] Height Weight Body Mass Index Source May 06, 2023 09:50 AM 98.5 71 127/80 18 95 2 [facility] Social History: Smoking Status (Most current) and Tobacco Use (All prior to encounter date) This section includes the most current, and the historical, smoking and tobacco- related health factors from the [place] facility where the Encounter took place. Current Smoking Status This section includes the most current smoking, or tobacco-related health factor, from the [place] facility where the Encounter took place. Date/Time Current Smoking Status Comment Gonzalo itmikhail Sep 29, 2022 10:30 AM VA-TOBACCO FORMER USER [facility] Tobacco Use History This section includes a history of the smoking, or tobacco-related health factors, that were collected on or before the date of the Encounter. The data comes from the [place] facility where the Encounter took place. Date/Time Smoking Status/Tobacco Use Comment F acility Sep 29, 2022 10:30 AM VA-TOBACCO QUIT 15 YRS OR MORE [facility] Jan 21, 2021 09:00 AM VA-TOBACCO NEVER USED [facility] Feb 14, 2020 01:00 PM VA-TOBACCO FORMER USER [facility] Feb 14, 2020 01:00 PM VA-TOBACCO QUIT 15 YRS OR MORE [facility] Jul 05, 2018 03:54 PM VA-TOBACCO FORMER USER [facility] Jul 05, 2018 03:54 PM VA-TOBACCO QUIT 15 YRS OR MORE [facility] May 19, 2017 01:01 PM QUIT TOBACCO USE > 7 YEARS AGO [facility] Apr 29, 2016 12:14 PM QUIT TOBACCO USE > 7 YEARS AGO Quit 20 years ago [facility] Mar 21, 2015 02:25 PM QUIT TOBACCO USE > 7 YEARS AGO [facility] May 03, 2012 12:04 PM QUIT TOBACCO USE > 7 YEARS AGO [facility] Encounter Notes: All associated encounter notes This section contains the clinical notes associated to the Encounter. Date/Time Encounter Note(s) Provider Source May 06, 2023 11:19 AM ADDENDUM: LOCAL TITLE: Addendum STANDARD TITLE: ADDENDUM DATE OF NOTE: MAY 06, 2023@11:19:25 ENTRY DATE: MAY 06, 2023@11:19:25 AUTHOR: DL [place] EXP COSIGNER: URGENCY: STATUS: COMPLETED [place] plans to RTC tomorrow for reassessment and possible additional antibiotics. /lili/ DL [place] RN PRIMARY CARE RN Signed: 05/06/2023 11:20 Receipt Acknowledged By: 05/06/2023 12:42 /lili/ SHANELL MCCARTHY CERTIFIED NURSE PRACTITIONER ====== --- Original Document --- 05/06/23 WALK-IN NOTE PRIMARY CARE (T): Data: 73year old MALE reports to Primary Care clinic for Walk-In visit. 's PCP is BALTA MICHEL, last visit with PCP was 05/03/23. Today Vet walks in to clinic with recheck of right upper back wound Last recorded Vital Signs are: Temperature:98.5 F [36.9 C] (05/06/2023 09:50) Pulse:71 (05/06/2023 09:50) Blood Pressure:127/80 (05/06/2023 09:50) Respiration:18 (05/06/2023 09:50) Pain:2 (05/06/2023 09:50) Vet reports current allergies are: Remote Allergy [...] DAILY ACTIVE 10 Total Medications Action: reports to sick call requesting to have right upper back checked and dressing changed. Right upper back with initial I&D 04/28/23. Old dressing with small amount of purulent drainage. Noted with removal of old dressing to have purulent leakage from center of area. Continues to be elevated with deep erythema. Minimal pain. tender with palpation Palpated area causing large amounts of purulent drainage. Area cleansed and Pressure dressing reapplied. [place] reports he took his last AB today. Plans to return tomorrow for provider assessment. Reminders Info Only: [facility]able DUE NOW [facility] Mental Health Treatment Plan DUE NOW Medication Reconciliation DUE NOW /lili/ DL [place] RN PRIMARY CARE RN Signed: 05/06/2023 11:19 DL [place] [facility] May 06, 2023 09:51 AM PRIMARY CARE NOTE: LOCAL TITLE: WALK-IN NOTE PRIMARY CARE (T) STANDARD TITLE: PRIMARY CARE NOTE DATE OF NOTE: MAY 06, 2023@09:51 ENTRY DATE: MAY 06, 2023@09:51:12 AUTHOR: DL [place] EXP COSIGNER: URGENCY: STATUS: COMPLETED WALK-IN NOTE PRIMARY CARE (T) Has ADDENDA Data: 73year old MALE [place] reports to Primary Care clinic for Walk-In visit. [place]'s PCP is BALTA MICHEL, last visit with PCP was 05/03/23. Today Vet walks in to clinic with recheck of right upper back wound Last recorded Vital Signs are: Temperature:98.5 F [36.9 C] (05/06/2023 09:50) Pulse:71 (05/06/2023 09:50) Blood Pressure:127/80 (05/06/2023 09:50) Respiration:18 (05/06/2023 09:50) Pain:2 (05/06/2023 09:50) Vet reports current allergies are: Remote Allergy [...] DAILY ACTIVE 10 Total Medications Action: reports to sick call requesting to have right upper back checked and dressing changed. Right upper back with initial I&D 04/28/23. Old dressing with small amount of purulent drainage. Noted with removal of old dressing to have purulent leakage from center of area. Continues to be elevated with deep erythema. Minimal pain. tender with palpation Palpated area causing large amounts of purulent drainage. Area cleansed and Pressure dressing reapplied. [place] reports he took his last AB today. Plans to return tomorrow for provider assessment. Reminders Info Only: [facility] DUE NOW Mental Health Treatment Plan DUE NOW Medication Reconciliation DUE NOW /marito [place] RN PRIMARY CARE RN Signed: 05/06/2023 11:19 05/06/2023 ADDENDUM STATUS: COMPLETED plans to RTC tomorrow for reassessment and possible additional antibiotics. /marito MNOTANA RN PRIMARY CARE RN Signed: 05/06/2023 11:20 Receipt Acknowledged By: * AWAITING SIGNATURE * YANETH PAREKH ERIC K [place]
--- OUTSIDE RECORDS SUMMARY | 2024-03-23 01:12 | XMS_ITS | Encounter Summary ---
Author Name [facility] [place] Address [address] [place] [address] Care Team Providers Care Research Associate Molecular Biology Name Role Phone BALTA MICHEL Primary Care [...] O MEDEX BRONZ E Apr 12, 2014 [id number] [phone] WILUSZ,TH OM[place] PATIENT [place] SUPPLEMEN KATHRYN MEDEX BRONZ E Mar 12, 2013 [id number] WILUSZ,TH OM[place] PATIENT [place] SUPPLE[place] KATHRYN MEDEX BRONZ E Mar 12, 2013 [id number] WILLOREN,TH OMAS PATIENT MEDICARE (WNR) MEDICARE (M) PART B Feb 10, 2013 PART B [id number] BENITO CARSON PATIENT MEDICARE (WNR) MEDICARE (M) PART A Feb 10, 2013 PART A [id number] TX12 BENITO CARSON PATIENT MEDICARE (WNR) MEDICARE (M) PART A Feb 10, 2013 PART A [id number] BENITO CARSON PATIENT MEDICARE (WNR) MEDICARE (M) PART B Feb 10, 2013 PART B [id number] TX12 [phone] BENITO CARSON PATIENT Selected Encounter This section includes the information on record at [place] for the Encounter. Date/Time Encounter Type Encounter Description Reason Provider Source May 07, 2023 10:30 AM OFFICE O/P EST LOW 20 MIN PRIMARY CARE/MEDICINE ICD-10-CM L02.212 Cutaneous abscess of back [any part, except buttock] YANETH PAREKH [facility] Encounter Template Text not used by [place] Assessments - Encounter Diagnoses This section includes the primary and secondary diagnoses documented for the Encounter. Date/Time Primary/Secondary Diagnosis Diagnosis Name Provider Source May 17, 2023 03:21 PM PRIMARY Cutaneous abscess of back [any part, except buttock] YANETH PAREKH [place] Plan of Treatment: Future Appointments (+ 6 [...] 14, 2023 09:15 AM AMBULATORY - MEDICINE [facility] May 14, 2023 09:30 AM AMBULATORY - MEDICINE [facility] May 17, 2023 10:10 AM AMBULATORY [place] MEDICINE [place] C NTRClaude WSTRChristiano [facility] Jun 10, 2023 11:00 AM AMBULATORY - PSYCHIATRY [facility] Jul 08, 2023 10:00 AM AMBULATORY - PSYCHIATRY [facility] August 12, 2023 11:00 AM AMBULATORY - PSYCHIATRY [facility] August 18, 2023 11:15 AM AMBULATORY - MEDICINE [facility] August 18, 2023 11:30 AM [facility] Sep 16, 2023 11:00 AM AMBULATORY - PSYCHIATRY [facility] Sep 22, 2023 12:00 PM AMBULATORY [place]ICINE [place] [facility] Oct 28, 2023 11:00 AM AMBULATORY - PSYCHIATRY [facility] Nov 01, 2023 11:00 AM AMBULATORY - MEDICINE [place] [facility] Lab Results: +/- 30 days [...] Range Comment Apr 28, 2023 01:39 PM [facility] MICROALBUMIN CREATININE RATIO PANEL Specimen Type: URINE No comment entered. Ordering Provider: JEAN MARIE MICHEL Report Released Date/Time: Apr 22, 2023 02:14 PM Reporting Lab: [facility] [address] [address] Performing [facility]: [facility] [address] [address] MICROALBUMIN/C REATININE RATIO 10.6 mg/g 0-29.9 MICROALBUMIN,Q UANTITATIVE 1.6 mg/dL RR UNAVAIL CREATININE URINE 150.39 mg/dL Apr 28, 2023 01:39 PM [facility] LIPID PANEL FASTING Specimen Type: SERUM No comment entered. Ordering Provider: JEAN MARIE MICHEL Report Released Date/Time: Apr 22, 2023 02:14 PM Reporting Lab: [facility] [address] [address] Performing Lab: [facility] [address] [address] CHOLESTEROL 83 mg/dL TRIGLYCERIDE 57 mg/dL 0-150 LDL calculated 31 mg/dL 0-129 CHOL/HDL 2.0 HDL CHOLESTEROL 41 mg/dL 40-60 Apr 28, 2023 01:39 PM [facility] LIVER FUNCTION Specimen Type: SERUM No comment entered. Ordering Provider: JEAN MARIE MICHEL Report Released Date/Time: Apr 22, 2023 02:14 PM Reporting Lab: [facility] [address] [address] Performing Lab: [address] [address] PROTEIN,TOTAL 6.5 g/dL 6.0-8.3 ALBUMIN 3.8 g/dL [...] [facility] [address] [address] Performing Lab: [address] [address] UREA NITROGEN 22 mg/dL 7-25 GLUCOSE 81 [...] Apr 22, 2023 02:14 PM Reporting Lab: [facility] [address] [address] Performing Lab: [facility] [address] [address] HEMOGLOBIN A1C 5.6 4.0-5.6 Apr 28, 2023 01:39 PM [facility] TSH Specimen Type: SERUM No comment entered. Ordering Provider: JEAN MARIE MICHEL Report Released Date/Time: Apr 22, 2023 02:14 PM Reporting [facility] [address] [address] Performing Lab: [facility] [address] [address] TSH 2.38 u[IU]/mL 0.35-5.00 Apr 28, 2023 01:39 PM [facility] CBC AND DIFF (AUTO) Specimen Type: BLOOD No comment entered. Ordering Provider: JEAN MARIE MICHEL Report Released Date/Time: Apr 22, 2023 02:14 PM Reporting [facility]: [facility] [address] [address] Performing Lab: [facility] [address] [address] WBC 4.69 10*3/uL 4.50-11.00 RBC 4.53 10*6/uL 4.23-5.66 HGB 12.7 g/dL L 12.8-17 HCT 38.4 L 39.2-50.4 MCV 84.8 fL 82-99 MCHC 33.1 g/dL 30.8-35.1 PLT 178 10*3/uL 140-360 RDW-CV 13.2 12.0-16.0 [place], Abs 0.47 10*3/uL 0.30-1.10 MCH 28.0 pg 26.2-32.6 Neut % 51.6 43.7-75.8 Lymph % 34.8 14.0-42.3 [place] % 10.0 5.1-13.7 Eos % 2.8 0.4-6.8 [...] AM 98.7 63 125/74 16 97 0 [facility] Social History: Smoking Status (Most current) and [...] 29, 2022 10:30 AM VA-TOBACCO FORMER USER [place] Tobacco Use History This section includes a history of the smoking, or tobacco-related health factors, that were collected on or before the date of the Encounter. The data comes from the [place] facility where the Encounter took place. Date/Time Smoking Status/Tobacco Use Comment F acjaida Sep 29, 2022 10:30 AM VA-TOBACCO QUIT 15 YRS OR MORE [place] Jan 21, 2021 09:00 AM VA-TOBACCO NEVER USED [place] Feb 14, 2020 01:00 PM VA-TOBACCO FORMER USER [place] Feb 14, 2020 01:00 PM VA-TOBACCO QUIT 15 YRS OR MORE [place] Jul 05, 2018 03:54 PM VA-TOBACCO FORMER USER [place] Jul 05, 2018 03:54 PM VA-TOBACCO QUIT 15 YRS OR MORE [place] May 19, 2017 01:01 PM QUIT TOBACCO USE > 7 YEARS AGO [place] Apr 29, 2016 12:14 PM QUIT TOBACCO USE > 7 YEARS AGO Quit 20 years ago [place] Mar 21, 2015 02:25 PM QUIT TOBACCO USE > 7 YEARS AGO [place] May 03, 2012 12:04 PM QUIT TOBACCO USE > 7 YEARS AGO [place] Encounter Notes: All associated encounter notes This section contains the clinical notes associated to the Encounter. Date/Time Encounter Note(s) Provider Source May 07, 2023 10:30 AM NURSE PRACTITIONER NOTE: LOCAL TITLE: NURSE PRACTIONER/SICK VISIT STANDARD TITLE: NURSE PRACTITIONER NOTE DATE OF NOTE: MAY 07, 2023@10:30 ENTRY DATE: MAY 07, 2023@10:30:11 AUTHOR: YANETH PAREKH COSIGNER: URGENCY: STATUS: COMPLETED SICK CALL VISIT PETTY JOSE CARSON is a 73 y/o WHITE MALE who presents to [facility] sick call with c/o F/U I&D abscess, wound check. ATB therapy was extended by PCP for another 7 days. Wound continues to drain, per patient, but no longer has pain. PCP has ordered surgical consult, to see surgeon in 4 days. Afebrile. [place] PCP: ======= BALTA MICHEL VITAL SIGNS: Temperature 98.7 F [37.1 C] (05/07/2023 10:26) Blood Pressure 125/74 (05/07/2023 10:26) Pulse 63 (05/07/2023 10:26) Respiration 16 (05/07/2023 10:26) Pain 0 (05/07/2023 10:26) BMI BMI: 35.3 Weight 218 lb [98.88 kg] (05/03/2023 08:52) Pulse Oximetry 97% (05/07/2023 10:26) REVIEW OF SYSTEMS: see HPI PHYSICAL EXAMINATION: General: Well-appearing [place] in no obvious distress. Mental Status: Alert and oriented x4. Lungs: respirations easy and unlabored Integument: abscess site right upper back continues with SS drainage. Able to manually express small amount purulent drainage from site today. Wound is flat now, no periwound erythema present. Minimal induration present. Psych: Normal mood and affect. Cooperative with exam, follows commands. ASSESSMENT/PLAN: 1. cutaneous abscess right upper back - healing well, continue ATB until complete. To see general surgeon next week to determine if he needs further I&D, exploration of wound. Site dressed by RN. MEDICATIONS reviewed with FOLLOW UP: Return to clinic 3-5 days if no improvement in symptoms. UPCOMING APPOINTMENTS: No data available /es/ SHANELL MCCARTHY CERTIFIED NURSE PRACTITIONER Signed: 05/07/2023 10:54 YANETH PAREKH [place]
--- OUTSIDE RECORDS SUMMARY | 2024-03-23 01:13 | XMS_ITS | Encounter Summary ---
Author Name [facility] [place] [facility] [place] Address [address] [place] [address] Care Team Providers Care Maintenance Helper Utility Engineer Name Role Phone BALTA MICHEL Primary Care [...] O MEDEX BRONZ E Apr 12, 2014 [id number] WILUSZ,TH OMAS PATIENT [place] SUPPLEMEN KATHRYN MEDEX BRONZ E Mar 12, 2013 [id number] [phone] WILUSZ,TH OM[place] PATIENT [place] SUPPLE[place] KATHRYN MEDEX BRONZ E Mar 12, 2013 [id number] [phone] WILZ,TH OMAS PATIENT MEDICARE (WNR) MEDICARE (M) PART B Feb 10, 2013 PART B [id number] BENITO CARSON PATIENT MEDICARE (WNR) MEDICARE (M) PART A Feb 10, 2013 PART A [id number] [id number] [phone] BENITO CARSON PATIENT MEDICARE (WNR) MEDICARE (M) PART A Feb 10, 2013 PART A [id number] TX12 [phone] BENITO CARSON PATIENT MEDICARE (WNR) MEDICARE (M) PART B Feb 10, 2013 PART B [id number] [id number] [phone] BENITO CARSON PATIENT Selected Encounter This section includes the information on record at [place] for the Encounter. Date/Time Encounter Type Encounter Description Reason Provider Source May 13, 2023 11:00 AM PSYTX W PT 60 [facility]UTES [facility] - IND ICD-10-CM F43.12 Post-traumatic stress disorder, chronic NINA SMITHORAH Mike Encounter Template Text not used by [place] Assessments - Encounter Diagnoses This section includes the primary and secondary diagnoses documented for the Encounter. Date/Time Primary/Secondary Diagnosis Diagnosis Name Provider Source May 13, 2023 12:41 PM PRIMARY Post-traumatic stress disorder, chronic SHANELL SMITH May 13, 2023 12:41 PM SECONDARY Major depressv disorder, single episode, in partial remis SHANELL SMITH Plan of Treatment: Future Appointments (+ 6 months) and Future Tests (+/- 45 days) The Plan of Treatment section includes future care activities for the patient from all [place] treatmentfacilities. This section includes future appointments and future orders which are active, pending or scheduled. Future Appointments This section includes appointments that were scheduled to occur 6 months from the date of the Encounter, up to a maximum of 20 appointments. The data comes from all [place] treatment facilities. Appointment Date/Time Appointment Type Appointme nt Facility Name May 14, 2023 09:15 AM AMBULATORY - MEDICINE [facility] May 14, 2023 09:30 AM AMBULATORY - MEDICINE [facility] May 17, 2023 10:10 AM AMBULATORY - MEDICINE [place] [facility] Jun 10, 2023 11:00 AM AMBULATORY - PSYCHIATRY [facility] Jul 08, 2023 10:00 AM AMBULATORY - PSYCHIATRY [facility] August 12, 2023 11:00 AM AMBULATORY - PSYCHIATRY [facility] August 18, 2023 11:15 AM AMBULATORY - MEDICINE [facility] August 18, 2023 11:30 AM [facility] Sep 16, 2023 11:00 AM AMBULATORY - PSYCHIATRY [facility] Sep 22, 2023 12:00 PM AMBULATORY - MEDICINE [place] [facility] Oct 28, 2023 11:00 AM AMBULATORY - PSYCHIATRY [facility] Nov 01, 2023 11:00 AM [facility] Lab Results: +/- 30 days of the encounter This section includes the Chemistry and Hematology Lab Results on record with [place] for the patient. Radiology Reports and Pathology Reports are provided separately, in subsequent sections. Lab Results This section contains the Chemistry/Hematology Results that were resulted 30 days before or 30 daysafter the date of the Encounter. Date/Time Source Result Type Result - Unit Interpretation Reference Range Comment Apr 28, 2023 01:39 PM [facility] MICROALBUMIN CREATININE RATIO PANEL Specimen Type: URINE No comment entered. Ordering Provider: JEAN MARIE MICHEL Report Released Date/Time: Apr 22, 2023 02:14 PM Reporting Lab: [facility] [address] [address] Performing Lab: [facility] [address] [address] MICROALBUMIN/C REATININE RATIO 10.6 mg/g 0-29.9 MICROALBUMIN,Q UANTITATIVE 1.6 mg/dL RR UNAVAIL CREATININE URINE 150.39 mg/dL Apr 28, 2023 01:39 PM [facility] LIPID PANEL FASTING Specimen Type: SERUM No comment entered. Ordering Provider: JEAN MARIE MICHEL Report Released Date/Time: Apr 22, 2023 02:14 PM Reporting Lab: [facility] [address] [address] Performing Lab: [facility] [address] [address] CHOLESTEROL 83 mg/dL TRIGLYCERIDE 57 mg/dL 0-150 LDL calculated 31 mg/dL 0-129 CHOL/HDL 2.0 HDL CHOLESTEROL 41 mg/dL 40-60 Apr 28, 2023 01:39 PM [facility] LIVER FUNCTION Specimen Type: SERUM No comment entered. Ordering Provider: JEAN MARIE MICHEL Report Released Date/Time: Apr 22, 2023 02:14 PM Reporting Lab: [facility] [address] [address] Performing Lab: [address] [address] PROTEIN,TOTAL 6.5 g/dL 6.0-8.3 ALBUMIN 3.8 g/dL 3.5-5.0 ALKALINE PHOSPHATASE 109 U/L 40-150 AST 35 U/L H 5-34 ALT 36 U/L BILIRUBIN, TOTAL 1.0 mg/dL 0.2-1.2 Apr 28, 2023 01:39 PM [facility] BASIC METABOLIC PANEL (fasting) Specimen Type: SERUM No comment entered. Ordering Provider: JEAN MARIE MICHEL Report Released Date/Time: Apr 22, 2023 02:14 PM Reporting Lab: [address] [address] Performing Lab: [address] [address] UREA NITROGEN 22 mg/dL 7-25 GLUCOSE 81 mg/dL 65-100 SODIUM 137 mmol/L 135-145 POTASSIUM 4.1 mmol/L 3.5-5.0 CHLORIDE 103 mmol/L 100-110 CO2 23 meq/L 20-30 CREATININE, Serum 1.18 mg/dL 0.50-1.40 eGFR(CKD-EPI 2020) 64 mL/min >60 Apr 28, 2023 01:39 PM [facility] HEMOGLOBIN A1C PANEL Specimen Type: BLOOD Comment: [...] Apr 22, 2023 02:14 PM Reporting Lab: [facility] [address] [address] Performing Lab: [facility] [address] [address] HEMOGLOBIN A1C 5.6 4.0-5.6 Apr 28, 2023 01:39 PM [facility] TSH Specimen Type: SERUM No comment entered. Ordering Provider: JEAN MARIE MICHEL Report Released Date/Time: Apr 22, 2023 02:14 PM Reporting Lab: [address] [address] Performing Lab: [facility] [address] [address] TSH 2.38 u[IU]/mL 0.35-5.00 Apr 28, 2023 01:39 PM [facility] CBC AND DIFF (AUTO) Specimen Type: BLOOD No comment entered. Ordering Provider: JEAN MARIE MICHEL Report Released Date/Time: Apr 22, 2023 02:14 PM Reporting Lab: [facility] [address] [address] Performing Lab: [facility] [address] [address] WBC 4.69 10*3/uL 4.50-11.00 RBC 4.53 10*6/uL 4.23-5.66 HGB 12.7 g/dL L 12.8-17 HCT 38.4 L 39.2-50.4 MCV 84.8 fL 82-99 MCHC 33.1 g/dL 30.8-35.1 PLT 178 10*3/uL 140-360 RDW-CV 13.2 12.0-16.0 Hardin, Abs 0.47 10*3/uL 0.30-1.10 MCH 28.0 pg 26.2-32.6 Neut % 51.6 43.7-75.8 Lymph % 34.8 14.0-42.3 Hardin % 10.0 5.1-13.7 Eos % 2.8 0.4-6.8 [...] and tobacco- related health factors from the [place] facility where the Encounter took place. Current Smoking Status This section includes the most current smoking, or tobacco-related health factor, from the [place] facility where the Encounter took place. Date/Time Current Smoking Status Comment Gonzalo lin Sep 29, 2022 10:30 AM VA-TOBACCO FORMER USER [place] Tobacco Use History This section includes a history of the smoking, or tobacco-related health factors, that were collected on or before the date of the Encounter. The data comes from the [place] facility where the Encounter took place. Date/Time Smoking Status/Tobacco Use Comment F katerine Sep 29, 2022 10:30 AM VA-TOBACCO QUIT 15 YRS OR MORE [facility] Jan 21, 2021 09:00 AM VA-TOBACCO NEVER USED [place] Feb 14, 2020 01:00 PM VA-TOBACCO FORMER USER [place] Feb 14, 2020 01:00 PM VA-TOBACCO QUIT 15 YRS OR MORE [place] Jul 05, 2018 03:54 PM VA-TOBACCO FORMER USER [place] Jul 05, 2018 03:54 PM VA-TOBACCO QUIT 15 YRS OR MORE [place] May 19, 2017 01:01 PM QUIT TOBACCO USE > 7 YEARS AGO [place] Apr 29, 2016 12:14 PM QUIT TOBACCO USE > 7 YEARS AGO Quit 20 years ago [facility] Mar 21, 2015 02:25 PM QUIT TOBACCO USE > 7 YEARS AGO [place] May 03, 2012 12:04 PM QUIT TOBACCO USE > 7 YEARS AGO [facility] Encounter Notes: All associated encounter notes This section contains the clinical notes associated to the Encounter. Date/Time Encounter Note(s) Provider Source May 13, 2023 11:00 AM SOCIAL WORK NOTE: LOCAL TITLE: SOCIAL WORK NOTE STANDARD TITLE: SOCIAL WORK NOTE DATE OF NOTE: MAY 13, 2023@11:00 ENTRY DATE: MAY 13, 2023@12:30:48 AUTHOR: SHANELL SMITHIGNER: URGENCY: STATUS: COMPLETED INFORMED CONSENT REVIEWED: At beginning of session reviewed rights and limits of confidentiality, mandatory reporting situations, duty to warn and protect, Jesus Warning, (if treatment team finds patient to be an acute danger to himself or others, that this information could be relayed to a court of law and presented to a intake coordinator), and DOD access for active duty service members. Provided Suicide Prevention Hotline number, and other contact numbers as necessary. 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 SESSION FOCUS: Met with [place] face for individual counseling. stated he needs to get his dog shots so he can board her while he goes on vacation. He states it always increases his anxiety when he has to leave her. They are very attached to each other.Pointed out that he seems to latch on to certain things and ruminate on them. He agreed. shared that tomorrow is the anniversary of when he met his . He will be going to the same restaurant where they met and he invited a mutual friend. stated he feels slightly awkward because he does not want this friend to think he is looking for a relationship. Encouraged him to talk about his feelings with her so she doesn't misinterpret them spending time together. He agreed. is planning to get two kittens when he returns from [place]. Overall he states he is feeling stable and has the support of friends and family. INTERVENTIONS: Psychotherapeutic Interventions: NM; Reflective listening and support ASSESSMENT: BRIEF ASSESSMENT [...] PLAN FOR FOLLOW-UP: Next session planned for: 06/10/23 at 11am /lili/ SHANELL SMITH INDUSTRIAL SALES ENGINEER Magnetic Resonance Imaging Coordinator Mental Health Signed: 05/13/2023 12:41 SHANELL SMITH
--- OUTSIDE RECORDS SUMMARY | 2024-03-23 01:13 | XMS_ITS | Encounter Summary ---
Author Name [facility] [place] [facility] [place] Address [address] [place] [address] Care Team Providers Care Welcome Wagon Hostess Name Role Phone BALTA MICHEL Primary Care [...] O MEDEX BRONZ E Apr 12, 2014 [id number] WILUSZ,TH OMAS PATIENT BCBS OR MEDICARE SUPPLEMEN KATHRYN MEDEX BRONZ E Mar 12, 2013 [id number] WILUSZ,TH OMAS PATIENT BCBS OR MEDICARE SUPPLEMEN KATHRYN MEDEX BRONZ E Mar 12, 2013 [id number] WILZ,TH OMAS PATIENT MEDICARE (WNR) MEDICARE (M) PART B Feb 10, 2013 PART B [id number] [id number] [phone] BENITO CARSON PATIENT MEDICARE (WNR) MEDICARE (M) PART A Feb 10, 2013 PART A [id number] BENITO CARSON PATIENT MEDICARE (WNR) MEDICARE (M) PART A Feb 10, 2013 PART A [id number] [id number] [phone] BENITO CARSON PATIENT MEDICARE (WNR) MEDICARE (M) PART B Feb 10, 2013 PART B [id number] TX12 [phone] BNEITO CARSON PATIENT Selected Encounter This section includes the information on record at [place] for the Encounter. Date/Time Encounter Type Encounter Description Reason Provider Source Jul 08, 2023 10:00 AM PSYTX W PT 60 MINUTES [facility] - IND ICD-10-CM F43.12 Post-traumatic stress disorder, chronic SHANELL SMITH Mike Encounter Template Text not used by [place] Assessments - Encounter Diagnoses This section includes the primary and secondary diagnoses documented for the Encounter. Date/Time Primary/Secondary Diagnosis Diagnosis Name Provider Source Jul 08, 2023 11:19 AM PRIMARY Post-traumatic stress disorder, chronic SHANELL SMITH Jul 08, 2023 11:19 AM SECONDARY Major depressv disorder, single episode, in partial remis SHANELL SMITH Plan of Treatment: Future Appointments (+ 6 months) and Future Tests (+/- 45 days) The Plan of Treatment section includes future care activities for the patient from all [place] treatmentfacilities. This section includes future appointments and future orders which are active, pending or scheduled. Future Appointments This section includes appointments that were scheduled to occur 6 months from the date of the Encounter, up to a maximum of 20 appointments. The data comes from all [place] treatment facilities. Appointment Date/Time Appointment Type Appointme nt Facility Name August 12, 2023 11:00 AM AMBULATORY - PSYCHIATRY [facility] August 18, 2023 11:15 AM AMBULATORY - MEDICINE [facility] August 18, 2023 11:30 AM [facility] Sep 16, 2023 11:00 AM AMBULATORY - PSYCHIATRY [facility] Sep 22, 2023 12:00 PM AMBULATORY - MEDICINE [place] [facility] Oct 28, 2023 11:00 AM AMBULATORY - PSYCHIATRY [facility] Nov 01, 2023 11:00 AM [facility] Dec 02, 2023 11:00 AM [facility]ONE [facility] Dec 09, 2023 11:00 AM AMBULATORY - PSYCHIATRY [facility] Dec 21, 2023 10:00 AM AMBULATORY - MEDICINE [id number] Dec 28, 2023 10:00 AM AMBULATORY - MEDICINE [id number] Jan 04, 2024 10:00 AM AMBULATORY - NONE [facility] Jan 06, 2024 11:00 AM AMBULATORY - PSYCHIATRY [facility] Active, Pending, and Scheduled Orders This section includes a listing of several types of active, pending, and scheduled orders, including clinic medications orders, diagnostic test orders, procedure orders and consult orders; where the start date of the order is 45 days before the date of the Encounter or 45 days after the date of theEncounter. The data comes from all [place] treatment facilities. Test Date/Time Test Type Test Details Facility Name Aug 02, 2023 12:00 AM Laboratory - Chemi stry Order CBC AND DIFF (AUTO) BLOOD (LAV-BLOOD) [facility] Aug 02, 2023 12:00 AM Laboratory - Chemi stry Order FERRITIN BLOOD (SST-SERUM) [facility] Aug 02, 2023 12:00 AM Laboratory - Chemi stry Order VITAMIN B12 BLOOD (SST-SERUM) [facility] Aug 02, 2023 12:00 AM Laboratory - Chemi stry Order FOLATE BLOOD (SST-SERUM) [facility] Aug 02, 2023 12:00 AM Laboratory - Chemi stry Order IRON & TIBC PANEL BLOOD (SST[facility]SERUM[facility] Social History: Smoking Status (Most current) and Tobacco Use (All prior to encounter date) This section includes the most current, and the historical, smoking and tobacco- related health factors from the [place] facility where the Encounter took place. Current Smoking Status This section includes the most current smoking, or tobacco-related health factor, from the [place] facility where the Encounter took place. Date/Time Current Smoking Status Comment Gonzalo lin Sep 29, 2022 10:30 AM VA-TOBACCO FORMER USER [place] Tobacco Use History This section includes a history of the smoking, or tobacco-related health factors, that were collected on or before the date of the Encounter. The data comes from the [facility] where the Encounter took place. Date/Time Smoking Status/Tobacco Use Comment F acjaida Sep 29, 2022 10:30 AM VA-TOBACCO QUIT 15 YRS OR MORE [place] Jan 21, 2021 09:00 AM VA-TOBACCO NEVER USED [place] Feb 14, 2020 01:00 PM VA-TOBACCO FORMER USER [place] Feb 14, 2020 01:00 PM VA-TOBACCO QUIT 15 YRS OR MORE [place] Jul 05, 2018 03:54 PM VA-TOBACCO FORMER USER [place] Jul 05, 2018 03:54 PM VA-TOBACCO QUIT 15 YRS OR MORE [place] May 19, 2017 01:01 PM QUIT TOBACCO USE > 7 YEARS AGO [place] Apr 29, 2016 12:14 PM QUIT TOBACCO USE > 7 YEARS AGO Quit 20 years ago [place] Mar 21, 2015 02:25 PM QUIT TOBACCO USE > 7 YEARS AGO [place] May 03, 2012 12:04 PM QUIT TOBACCO USE > 7 YEARS AGO [place] Encounter Notes: All associated encounter notes This section contains the clinical notes associated to the Encounter. Date/Time Encounter Note(s) Provider Source Jul 08, 2023 10:00 AM SOCIAL WORK NOTE: LOCAL TITLE: SOCIAL WORK NOTE STANDARD TITLE: SOCIAL WORK NOTE DATE OF NOTE: JUL 08, 2023@10:00 ENTRY DATE: JUL 08, 2023@11:11:11 AUTHOR: SHANELL SMITH COSIGNER: URGENCY: STATUS: COMPLETED INFORMED CONSENT REVIEWED: At beginning of session reviewed rights and limits of confidentiality, mandatory reporting situations, duty to warn and protect, Jesus Warning, (if treatment team finds patient to be an acute danger to himself or others, that this information could be relayed to a court of law and presented to a gospel singer), and DOD access for active duty service members. Provided Suicide Prevention Hotline number, and other contact numbers as necessary. 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 SESSION FOCUS: Met with [place] face to face for individual counseling. Victor M has been to [place] and back with his daughter since our last session. Victor M stated as usual he hated leaving his dog at the kennel but was able to relax after a few days. Victor M stated the trip was wonderful. He did a lot of walking and enjoyed the food and the warm weather. Now that he is back he is going to look for a cat or kitten to adopt. He stated I need another grounding energy in my life. Victor M stated Lino is gone. He cannot even conjur him up it he tries. He discovered how this image was created in his mind. In [place] he and peers used to hide and smoke cannabis. They had to literally hide it so the VC didn't see the lit end of the joint. Victor M came back with the image that the VC were watching him. Overall he states he is stable and has the support of family and friends. INTERVENTIONS: Psychotherapeutic Interventions: NV; Reflective listening and support ASSESSMENT: BRIEF ASSESSMENT [...] PLAN FOR FOLLOW-UP: Next session planned for: 08/12/23 at 11am /lili/ SHANELL SMITH TRANSPLANT CASE MANAGER Collator Operator Mental Health Signed: 07/08/2023 11:19 SHANELL SMITH
--- OUTSIDE RECORDS SUMMARY | 2024-03-23 01:13 | XMS_ITS | Encounter Summary ---
Author Name [facility] [place] [facility] [place] Address [address] [place] [address] Care Team Providers Care Student Ministries Director Name Role Phone BALTA MICHEL Primary Care [...] O MEDEX BRONZ E Apr 12, 2014 [id number] WILUSZ,TH OMAS PATIENT [place] SUPPLE[place] KATHRYN MEDEX BRONZ E Mar 12, 2013 [id number] WILUSZ,TH [place] KATHRYN MEDEX BRONZ E Mar 12, 2013 [id number] WILZ,TH OMAS PATIENT MEDICARE (WNR) MEDICARE (M) PART B Feb 10, 2013 PART B [id number] TX12 [phone] BENITO CARSON PATIENT MEDICARE (WNR) MEDICARE (M) PART A Feb 10, 2013 PART A [id number] [id number] [phone] BENITO CARSON PATIENT MEDICARE (WNR) MEDICARE (M) PART A Feb 10, 2013 PART A [id number] [id number] [phone] BENITO CARSON PATIENT MEDICARE (WNR) MEDICARE (M) PART B Feb 10, 2013 PART B [id number] TX12 BENITO CARSON PATIENT Selected Encounter This section includes the information on record at [place] for the Encounter. Date/Time Encounter Type Encounter Description Reason Provider Source Jun 10, 2023 11:00 AM PSYTX W PT 60 MINUTES [facility] - IND ICD-10-CM F43.12 Post-traumatic stress disorder, chronic SHANELL SMITH Mike Encounter Template Text not used by [place] Assessments - Encounter Diagnoses This section includes the primary and secondary diagnoses documented for the Encounter. Date/Time Primary/Secondary Diagnosis Diagnosis Name Provider Source Jun 10, 2023 12:10 PM PRIMARY Post-traumatic stress disorder, chronic SHANELL SMITH Jun 10, 2023 12:10 PM SECONDARY Major depressv disorder, single episode, [...] Date/Time Appointment Type Appointme nt Facility Name Jul 08, 2023 10:00 AM AMBULATORY - [facility]ATRY [facility] August 12, 2023 11:00 AM AMBULATORY - PS[facility]CHIATRY [facility] August 18, 2023 11:15 AM AMBULATORY - MEDICINE [facility] August 18, 2023 11:30 AM AMBULATORY - MEDICINE [facility] Sep 16, 2023 11:00 AM AMBULATORY - PSYCHIATRY [facility] Sep 22, 2023 12:00 PM AMBULATORY [place] [facility] [place] [facility] Oct 28, 2023 11:00 AM AMBULATORY - PSYCHIATRY [facility] Nov 01, 2023 11:00 AM AMBULATORY [place] MEDICINE [place] [facility] [place] [facility] Dec 02, 2023 11:00 AM AMBULATORY - NONE [place] [facility] [place] [facility] Dec 09, 2023 11:00 AM AMBULATORY - PSYCHIATRY [facility] Social History: Smoking Status (Most current) and Tobacco Use (All prior to encounter date) This section includes the most current, and the historical, smoking and tobacco- related health factors from the [place] facility where the Encounter took place. Current Smoking Status This section includes the most current smoking, or tobacco-related health factor, from the [place] facility where the Encounter took place. Date/Time Current Smoking Status Comment Facil ity Sep 29, 2022 10:30 AM VA-TOBACCO FORMER USER [facility] Tobacco Use History This section includes a history of the smoking, or tobacco-related health factors, that were collected on or before the date of the Encounter. The data comes from the [place] facility where the Encounter took place. Date/Time Smoking Status/Tobacco Use Comment F acility Sep 29, 2022 10:30 AM VA-TOBACCO QUIT 15 YRS OR MORE [facility] Jan 21, 2021 09:00 AM VA-TOBACCO NEVER USED [facility] Feb 14, 2020 01:00 PM VA-TOBACCO FORMER USER [facility] Feb 14, 2020 01:00 PM VA-TOBACCO QUIT 15 YRS OR MORE [facility] Jul 05, 2018 03:54 PM VA-TOBACCO FORMER USER [facility] Jul 05, 2018 03:54 PM VA-TOBACCO QUIT 15 YRS OR MORE [facility] May 19, 2017 01:01 PM QUIT TOBACCO USE > 7 YEARS AGO [facility] Apr 29, 2016 12:14 PM QUIT TOBACCO USE > 7 YEARS AGO Quit 20 years ago [facility] Mar 21, 2015 02:25 PM QUIT TOBACCO USE > 7 YEARS AGO [facility] May 03, 2012 12:04 PM QUIT TOBACCO USE > 7 YEARS AGO [facility] Encounter Notes: All associated encounter notes This section contains the clinical notes associated to the Encounter. Date/Time Encounter Note(s) Provider Source Jun 10, 2023 11:00 AM SOCIAL WORK NOTE: LOCAL TITLE: SOCIAL WORK NOTE STANDARD TITLE: SOCIAL WORK NOTE DATE OF NOTE: JUN 10, 2023@11:00 ENTRY DATE: JUN 10, 2023@12:02:51 AUTHOR: SHANELL SMITH EXP COSIGNER: URGENCY: STATUS: COMPLETED INFORMED CONSENT REVIEWED: At beginning of session reviewed rights and limits of confidentiality, mandatory reporting situations, duty to warn and protect, Jesus Warning, (if treatment team finds patient to be an acute danger to himself or others, that this information could be relayed to a court of law and presented to a supervisor metal fabricating), and DOD access for active duty service members. Provided Suicide Prevention Hotline number, and other contact numbers as necessary. 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 SESSION FOCUS: Met with [place] face to face for individual counseling. stated he is leaving tomorrow to go to his daughter's and then they are all flying to [place] on Wednesday. stated he always goes through this when traveling and leaving his dog. He and dog are very attached and although the kennel she is staying at knows her well and she likes it there, Washington still stresses over the separation. He stated he will be ok after a few days but the initial separation is always difficult. [place] spoke about the dinner he had with a female friend that he mentioned during our last session. He stated it was a nice evening and he believes they are both on the same page regarding not wanting a relationship. He stated he does have concerns however about his neighbor whom he walks his dog with. He stated she has invited him to several events and he automatically says no. He states he is avoiding any uncomfortable conversation. INTERVENTIONS: Psychotherapeutic Interventions: NC; Reflective listening and support ASSESSMENT: BRIEF ASSESSMENT [...] PLAN FOR FOLLOW-UP: Next session planned for: 07/08/23 at 10am /lili/ LUCY FORREST In Flight Refueling System Repairer Mental Health Signed: 06/10/2023 12:11 SHANELL SMITH
--- OUTSIDE RECORDS SUMMARY | 2024-03-23 01:13 | XMS_ITS | Encounter Summary ---
Author Name [facility] [place] [facility] [place] Address [address] [place] [address] Care Team Providers Care Web Development Instructor Name Role Phone BALTA MICHEL Primary Care [...] O MEDEX BRONZ E Apr 12, 2014 [id number] [phone] WILLOREN, OM[place] PATIENT BCBS [place] MEDICARE SUPPLEMEN KATHRYN MEDEX BRONZ E Mar 12, 2013 [id number] WILLOREN, [place] PAT[place] KATHRYN MEDEX BRONZ E Mar 12, 2013 [id number] WILLOREN,TH OMAS PATIENT MEDICARE (WNR) MEDICARE (M) PART B Feb 10, 2013 PART B [id number] BENITO CARSON PATIENT MEDICARE (WNR) MEDICARE (M) PART A Feb 10, 2013 PART A [id number] BENITO CARSON PATIENT MEDICARE (WNR) MEDICARE (M) PART A Feb 10, 2013 PART A [id number] TX12 BENITO CARSON PATIENT MEDICARE (WNR) MEDICARE (M) PART B Feb 10, 2013 PART B [id number] TX12 BENITO CARSON PATIENT Selected Encounter This section includes the information on record at [place] for the Encounter. Date/Time Encounter Type Encounter Description Reason Pro vider Source May 11, 2023 12:00 AM Outpatient Encounter COMMUNITY CARE CONSULT IHE Encounter Template Text not used by [place] Plan of Treatment: Future Appointments (+ 6 months) and Future Tests (+/- 45 days) The Plan of Treatment section includes future care activities for the patient from all [place] treatmentfacilities. This section includes future appointments and future orders which are active, pending or scheduled. Future Appointments This section includes appointments that were scheduled to occur 6 months from the date of the Encounter, up to a maximum of 20 appointments. The data comes from all [place] treatment facilities. Appointment Date/Time Appointment Type Appointme nt Facility Name May 13, 2023 11:00 AM AMBULATORY - PSYCHIATRY [facility] May 14, 2023 09:15 AM [facility] MEDICINE [facility] May 14, 2023 09:30 AM [facility] - MEDICINE [facility] May 17, 2023 10:10 AM [facility] Jun 10, 2023 11:00 AM AMBULATORY - PSYCHIATRY [facility] Jul 08, 2023 10:00 AM AMBULATORY - PSYCHIATRY [facility] August 12, 2023 11:00 AM AMBULATORY - PSYCHIATRY [facility] August 18, 2023 11:15 AM [facility]ATORY - MEDICINE [facility] August 18, 2023 11:30 AM [facility] - MEDICINE [facility] Sep 16, 2023 11:00 AM AMBULATORY - PSYCHIATRY [facility] Sep 22, 2023 12:00 PM [facility] Oct 28, 2023 11:00 AM [facility] Nov 01, 2023 11:00 AM AMBULATORY - MEDICINE [facility] Lab Results: +/- 30 days of the encounter This section includes the Chemistry and Hematology Lab Results on record with [place] for the patient. Radiology Reports and Pathology Reports are provided separately, in subsequent sections. Lab Results This section contains the Chemistry/Hematology Results that were resulted 30 days before or 30 daysafter the date of the Encounter. Date/Time Source Result Type Result - Unit Interpretation Reference Range Comment Apr 28, 2023 01:39 PM [facility] MICROALBUMIN CREATININE RATIO PANEL Specimen Type: URINE No comment entered. Ordering Provider: JEAN MARIE MICHEL Report Released Date/Time: Apr 22, 2023 02:14 PM Reporting Lab: [address] [address] Performing Lab: [address] [address] MICROALBUMIN/C REATININE RATIO 10.6 mg/g 0-29.9 MICROALBUMIN,Q UANTITATIVE 1.6 mg/dL RR UNAVAIL CREATININE URINE 150.39 mg/dL Apr 28, 2023 01:39 PM [facility] LIPID PANEL FASTING Specimen Type: SERUM No comment entered. Ordering Provider: JEAN MARIE MICHEL Report Released Date/Time: Apr 22, 2023 02:14 PM Reporting Lab: [address] [address] Performing Lab: [address] [address] CHOLESTEROL 83 mg/dL TRIGLYCERIDE 57 mg/dL 0-150 LDL calculated 31 mg/dL 0-129 CHOL/HDL 2.0 HDL CHOLESTEROL 41 mg/dL 40-60 Apr 28, 2023 01:39 PM [facility] BASIC METABOLIC PANEL (fasting) Specimen Type: SERUM No comment entered. Ordering Provider: JEAN MARIE MICHEL Report Released Date/Time: Apr 22, 2023 02:14 PM Reporting Lab: [address] [place] [address] Performing Lab: [facility] [address] [facility] [address] UREA NITROGEN 22 mg/dL 7-25 GLUCOSE 81 mg/dL 65-100 SODIUM 137 mmol/L 135-145 POTASSIUM 4.1 mmol/L 3.5-5.0 CHLORIDE 103 mmol/L 100-110 CO2 23 meq/L 20-30 CREATININE, Serum 1.18 mg/dL 0.50-1.40 eGFR(CKD-EPI 2020) 64 mL/min >60 Apr 28, 2023 01:39 PM [facility] LIVER FUNCTION Specimen Type: SERUM No comment entered. Ordering Provider: JEAN MARIE MICHEL Report Released Date/Time: Apr 22, 2023 02:14 PM Reporting Lab: [address] [address] Performing Lab: [address] [address] PROTEIN,TOTAL 6.5 g/dL 6.0-8.3 ALBUMIN 3.8 g/dL 3.5-5.0 ALKALINE PHOSPHATASE 109 U/L 40-150 AST 35 U/L H 5-34 ALT 36 U/L BILIRUBIN, TOTAL 1.0 mg/dL 0.2-1.2 Apr 28, 2023 01:39 PM [facility] HEMOGLOBIN A1C PANEL Specimen Type: BLOOD [...] Apr 22, 2023 02:14 PM Reporting Lab: [address] [address] Performing Lab: [address] [address] HEMOGLOBIN A1C 5.6 4.0-5.6 Apr 28, 2023 01:39 PM [facility] TSH Specimen Type: SERUM No comment entered. Ordering Provider: JEAN MARIE MICHEL Report Released Date/Time: Apr 22, 2023 02:14 PM Reporting Lab: [facility] [address] [facility] [address] Performing Lab: [address] [address] TSH 2.38 u[IU]/mL 0.35-5.00 Apr 28, 2023 01:39 PM [facility] CBC AND DIFF (AUTO) Specimen Type: BLOOD No comment entered. Ordering Provider: JEAN MARIE MICHEL Report Released Date/Time: Apr 22, 2023 02:14 PM Reporting Lab: [address] [address] Performing Lab: [address] [address] WBC 4.69 10*3/uL 4.50-11.00 RBC 4.53 10*6/uL 4.23-5.66 HGB 12.7 g/dL L 12.8-17 HCT 38.4 L 39.2-50.4 MCV 84.8 fL 82-99 MCHC 33.1 g/dL 30.8-35.1 PLT 178 10*3/uL 140-360 RDW-CV 13.2 12.0-16.0 [place], Abs 0.47 10*3/uL 0.30-1.10 MCH 28.0 pg 26.2-32.6 Neut % 51.6 43.7-75.8 Lymph % 34.8 14.0-42.3 [place] % 10.0 5.1-13.7 Eos % 2.8 0.4-6.8 [...] Encounter. Date/Time Encounter Note(s) Provider Source May 11, 2023 12:00 AM NONVA CONSULT: LOCAL TITLE: COMMUNITY CARE-CONSULT RESULT NOTE STANDARD TITLE: NONVA CONSULT DATE OF NOTE: MAY 11, 2023 ENTRY DATE: MAY 21, 2023@16:09:38 AUTHOR: AURELIA CAI EXP COSIGNER: URGENCY: STATUS: COMPLETED VistA Imaging - Scanned Document SCANNED DOCUMENT SIGNATURE NOT REQUIRED Electronically Filed: 05/21/2023 by: AURELIA RAMÍREZ [facility]
--- OUTSIDE RECORDS SUMMARY | 2024-03-23 01:13 | XMS_ITS | Encounter Summary ---
Author Name [facility] [place] [place] Address [address] [place] [address] Care Team Providers Care Film Composer Name Role Phone BALTA MICHEL Primary Care [...] O MEDEX BRONZ E Apr 12, 2014 [id number] WILLOREN, OMAS PATIENT BCBS [place] MEDICARE SUPPLEMEN KATHRYN MEDEX BRONZ E Mar 12, 2013 [id number] WILLOREN, OM[place] PATIENT [place] MED[place] SUPP[place]MEN KATHRYN MEDEX BRONZ E Mar 12, 2013 [id number] ALLI,TH OMAS PATIENT MEDICARE (WNR) MEDICARE (M) PART B Feb 10, 2013 PART B [id number] TX12 BENITO CARSON PATIENT MEDICARE (WNR) MEDICARE (M) PART A Feb 10, 2013 PART A [id number] [id number] BENITO CARSON PATIENT MEDICARE (WNR) MEDICARE (M) PART A Feb 10, 2013 PART A [id number] [id number] BENITO CARSON PATIENT MEDICARE (WNR) MEDICARE (M) PART B Feb 10, 2013 PART B [id number] TX12 BENITO CARSON PATIENT Selected Encounter This section includes the information on record at [place] for the Encounter. Date/Time Encounter Type Encounter Description Reason Provider Source May 14, 2023 09:15 AM OFF/OP EST AUGUST X REQ PHY/QHP PRIMARY CARE/MEDICINE ICD-10-CM L02.212 Cutaneous abscess of back [any part, except buttock] DL [place] [facility] Encounter Template Text not used by [place] Assessments - Encounter Diagnoses This section includes the primary and secondary diagnoses documented for the Encounter. Date/Time Primary/Secondary Diagnosis Diagnosis Name Provider Source May 25, 2023 12:08 PM PRIMARY Cutaneous abscess of back [any part, except buttock] DL [place] [facility] Plan of Treatment: Future Appointments (+ 6 [...] Appointment Type Appointme nt Facility Name May 17, 2023 10:10 AM AMBULATORY - MEDICINE [place] C [facility]LLIE DEL[facility] Jun 10, 2023 11:00 AM AMBULATORY - PSYCHIATRY [facility] Jul 08, 2023 10:00 AM AMBULATORY - PSYCHIATRY [facility] August 12, 2023 11:00 AM AMBULATORY - PSYCHIATRY [facility] August 18, 2023 11:15 AM AMBULATORY - MEDICINE [facility] August 18, 2023 11:30 AM AMBULATORY - MEDICINE [facility] Sep 16, 2023 11:00 AM AMBULATORY - PSYCHIATRY [facility] Sep 22, 2023 12:00 PM AMBULATORY - MEDICINE [place] [place] [facility] Oct 28, 2023 11:00 AM AMBULATORY - PSYCHIATRY [facility] Nov 01, 2023 11:00 AM [facility] [place] [facility] Lab Results: +/- 30 days of [...] Range Comment Apr 28, 2023 01:39 PM [facility] MICROALBUMIN CREATININE RATIO PANEL Specimen Type: URINE No comment entered. Ordering Provider: JEAN MARIE MICHEL Report Released Date/Time: Apr 22, 2023 02:14 PM Reporting Lab: [facility] [address] [facility] [address] Performing Lab: [facility] [address] [facility] [address] MICROALBUMIN/C REATININE RATIO 10.6 mg/g 0-29.9 MICROALBUMIN,Q UANTITATIVE 1.6 mg/dL RR UNAVAIL CREATININE URINE 150.39 mg/dL Apr 28, 2023 01:39 PM [facility] LIPID PANEL FASTING Specimen Type: SERUM No comment entered. Ordering Provider: JEAN MARIE MICHEL Report Released Date/Time: Apr 22, 2023 02:14 PM Reporting Lab: [facility] [address] [facility] [address] Performing Lab: [facility] [address] [facility] [address] CHOLESTEROL 83 mg/dL TRIGLYCERIDE 57 mg/dL 0-150 LDL calculated 31 mg/dL 0-129 CHOL/HDL 2.0 HDL CHOLESTEROL 41 mg/dL 40-60 Apr 28, 2023 01:39 PM [facility] BASIC METABOLIC PANEL (fasting) Specimen Type: SERUM No comment entered. Ordering Provider: JEAN MARIE MICHEL Report Released Date/Time: Apr 22, 2023 02:14 PM Reporting Lab: [address] [address] Performing Lab: [address] [address] UREA NITROGEN 22 mg/dL 7-25 GLUCOSE 81 mg/dL 65-100 SODIUM 137 mmol/L 135-145 POTASSIUM 4.1 mmol/L 3.5-5.0 CHLORIDE 103 mmol/L 100-110 CO2 23 meq/L 20-30 CREATININE, Serum 1.18 mg/dL 0.50-1.40 eGFR(CKD-EPI 2020) 64 mL/min >60 Apr 28, 2023 01:39 PM [facility] LIVER FUNCTION Specimen Type: SERUM No comment entered. Ordering Provider: JEAN MARIE MICHEL Report Released Date/Time: Apr 22, 2023 02:14 PM Reporting Lab: [address] [address] Performing Lab: [address] [address] PROTEIN,TOTAL 6.5 g/dL 6.0-8.3 ALBUMIN 3.8 g/dL 3.5-5.0 ALKALINE PHOSPHATASE 109 U/L 40-150 AST 35 U/L H 5-34 ALT 36 U/L BILIRUBIN, TOTAL 1.0 mg/dL 0.2-1.2 Apr 28, 2023 01:39 PM [facility] HEMOGLOBIN A1C PANEL Specimen [...] 22, 2023 02:14 PM Reporting Lab: [address] [address] Performing Lab: [facility] [address] [facility] [address] HEMOGLOBIN A1C 5.6 4.0-5.6 Apr 28, 2023 01:39 PM [facility] TSH Specimen Type: SERUM No comment entered. Ordering Provider: JEAN MARIE MICHEL Report Released Date/Time: Apr 22, 2023 02:14 PM Reporting Lab: [facility] [address] [facility] [address] Performing Lab: [address] [address] TSH 2.38 u[IU]/mL 0.35-5.00 Apr 28, 2023 01:39 PM [facility] CBC AND DIFF (AUTO) Specimen Type: BLOOD No comment entered. Ordering Provider: JEAN MARIE MICHEL Report Released Date/Time: Apr 22, 2023 02:14 PM Reporting Lab: [facility] [address] [facility] [address] Performing Lab: [address] [address] WBC 4.69 10*3/uL 4.50-11.00 RBC 4.53 10*6/uL 4.23-5.66 HGB 12.7 g/dL L 12.8-17 HCT 38.4 L 39.2-50.4 MCV 84.8 fL 82-99 MCHC 33.1 g/dL 30.8-35.1 PLT 178 10*3/uL 140-360 RDW-CV 13.2 12.0-16.0 Taylor, Abs 0.47 10*3/uL 0.30-1.10 MCH 28.0 pg 26.2-32.6 Neut % 51.6 43.7-75.8 Lymph % 34.8 14.0-42.3 Taylor % 10.0 5.1-13.7 Eos % 2.8 0.4-6.8 [...] Height Weight Body Mass Index Source May 14, 2023 09:47 AM 98 67 122/[address] [facility] Social History: Smoking Status (Most current) [...] 29, 2022 10:30 AM VA-TOBACCO FORMER USER [facility] Tobacco Use History This section includes a history of the smoking, or tobacco-related health factors, that were collected on or before the date of the Encounter. The data comes from the [place] facility where the Encounter took place. Date/Time Smoking Status/Tobacco Use Comment F katerine Sep 29, 2022 10:30 AM VA-TOBACCO QUIT 15 YRS OR MORE [facility] Jan 21, 2021 09:00 AM VA-TOBACCO NEVER USED [facility] Feb 14, 2020 01:00 PM VA-TOBACCO FORMER USER [facility] Feb 14, 2020 01:00 PM VA-TOBACCO QUIT 15 YRS OR MORE [facility] Jul 05, 2018 03:54 PM VA-TOBACCO FORMER USER [facility] Jul 05, 2018 03:54 PM VA-TOBACCO QUIT 15 YRS OR MORE [facility] May 19, 2017 01:01 PM QUIT TOBACCO USE > 7 YEARS AGO [facility] Apr 29, 2016 12:14 PM QUIT TOBACCO USE > 7 YEARS AGO Quit 20 years ago [facility] Mar 21, 2015 02:25 PM QUIT TOBACCO USE > 7 YEARS AGO [facility] May 03, 2012 12:04 PM QUIT TOBACCO USE > 7 YEARS AGO [facility] Encounter Notes: All associated encounter notes This section contains the clinical notes associated to the Encounter. Date/Time Encounter Note(s) Provider Source May 14, 2023 09:48 AM PRIMARY CARE NOTE: LOCAL TITLE: WALK-IN NOTE PRIMARY CARE (T) STANDARD TITLE: PRIMARY CARE NOTE DATE OF NOTE: MAY 14, 2023@09:48 ENTRY DATE: MAY 14, 2023@09:49:25 AUTHOR: DL [place] COSIGNER: URGENCY: STATUS: COMPLETED Data: 73year old MALE reports to Primary Care clinic for Walk-In visit. 's PCP is BALTA MICHEL Today Vet walks in to clinic for a check of the right upper back Last recorded Vital Signs are: Temperature:98 F [36.7 C] (05/14/2023 09:47) Pulse:67 (05/14/2023 09:47) Blood Pressure:122/77 (05/14/2023 09:47) Respiration:15 (05/14/2023 09:47) Pain:0 (05/14/2023 09:47) Vet reports current allergies are: Remote Allergy Data No Remote Allergy/ADR Data available for this patient Current Medications from Active Med list include: Active Outpatient Medications (including Supplies): Active Outpatient Medications Status = 1) ALIROCUMAB 75MG/ML INJ 1ML PEN INJECT 75MG (1ML) ACTIVE (S) SUBCUTANEOUSLY EVERY 2 WEEKS FOR HIGH CHOLESTEROL [...] TOPICALLY ONCE DAILY FOR DRY SKIN 7) LEVOTHYROXINE NA (SYNTHROID) 125MCG TAB TAKE ONE ACTIVE TABLET BY MOUTH EVERY MORNING 30 MINUTES BEFORE BREAKFAST FOR THYROID - TAKE ON AN EMPTY STOMACH WITH A FULL GLASS OF WATER 8) LISINOPRIL 10MG TAB TAKE ONE TABLET BY MOUTH ONCE ACTIVE DAILY TO CONTROL BLOOD PRESSURE 9) ROSUVASTATIN CA 40MG TAB TAKE ONE TABLET BY MOUTH ACTIVE ONCE DAILY FOR CHOLESTEROL 10) TRANSPARENT DRESSING 6IN X 8IN APPLY 1 DRESSING ACTIVE TOPICALLY ONCE DAILY Active Non-VA Medications Status = 1) Non-VA ASPIRIN 81MG EC TAB 81MG BY MOUTH DAILY ACTIVE 11 Total Medications Action: Seen by surgeon, states it looked good and no further treatment needed. He changes antibiotic to Augmentin with 5 days left Area flat, no drainage left open to air Educated on s/s of infection. May RTC as needed. Reminders Info Only: [facility] Video Connect Capable DUE NOW Mental Health Treatment Plan DUE NOW Medication Reconciliation DUE NOW RHS Screen DUE NOW /lili/ DL [place] RN PRIMARY CARE RN Signed: 05/14/2023 09:53 DL [place] [facility]
--- OUTSIDE RECORDS SUMMARY | 2024-03-23 01:13 | XMS_ITS ---
Author Name [facility] Organization [facility] [place] Address [address] [place] [address] Care Team Providers Care Childcare Director Name Role Phone BALTA MICHEL Primary [...] Name Patient's Relationship to Policy Ortiz ELISABETH PAULABS OF CT (BLUECARD) MEDICARE SUPPLEMEN KATHRYN PSUED O MEDEX BRONZ E Apr 12, 2014 [id number] WILLOREN, OMAS PATIENT [place] MED[place] SUPPLEMEN KATHRYN MEDEX BRONZ E Mar 12, 2013 [id number] WILLOREN, [place] KATHRYN MEDEX BRONZ E Mar 12, 2013 [id number] ALLI,TH OMAS PATIENT MEDICARE (WNR) MEDICARE (M) PART B Feb 10, 2013 PART B [id number] TX12 BENITO CARSON PATIENT MEDICARE (WNR) MEDICARE (M) PART A Feb 10, 2013 PART A [id number] TX12 [phone] BENITO CARSON PATIENT MEDICARE (WNR) MEDICARE (M) PART A Feb 10, 2013 PART A [id number] TX12 [phone] BENITO CARSON PATIENT MEDICARE (WNR) MEDICARE (M) PART B Feb 10, 2013 PART B [id number] TX12 BENITO CARSON PATIENT Selected Encounter This section includes the information on record at OR for the Encounter. Date/Time Encounter Type Encounter Description Reason Provider Source Jun 07, 2023 01:18 PM Outpatient Encounter [facility] Mike Encounter Template Text not used by [place] Plan of Treatment: Future Appointments (+ 6 months) and Future Tests (+/- 45 days) The Plan of Treatment section includes future care activities for the patient from all [place] [facility] This section includes future appointments and future orders which are active, pending or scheduled. Future Appointments This section includes appointments that were scheduled to occur 6 months from the date of the Encounter, up to a maximum of 20 appointments. The data comes from all [place] treatment facilities. Appointment Date/Time Appointment Type Appointme nt Facility Name Jun 10, 2023 11:00 AM AMBULATORY - PSYCHIATRY [facility] Jul 08, 2023 10:00 AM AMBULATORY - PSYCHIATRY [facility] August 12, 2023 11:00 AM AMBULATORY - PSYCHIATRY [facility] August 18, 2023 11:15 AM [facility]ORY - MEDICINE [facility] August 18, 2023 11:30 AM AMBULATORY - MEDICINE [facility] Sep 16, 2023 11:00 AM AMBULATORY - PSYCHIATRY [facility] Sep 22, 2023 12:00 PM AMBULATORY - MEDICINE [place] [facility] Oct 28, 2023 11:00 AM AMBULATORY - PSYCHIATRY [facility] Nov 01, 2023 11:00 AM AMBULATORY - MEDICINE [place] [facility] [place] [facility] Dec 02, 2023 11:00 AM AMBULATORY - NONE [facility] [place] [facility] Encounter Notes: All associated encounter notes This section contains the clinical notes associated to the Encounter. Date/Time Encounter Note(s) Provider Source Jun 07, 2023 01:18 PM [facility] PL[facility] NOTE: LOCAL TITLE: MH TREATMENT PLAN STANDARD TITLE: MENTAL HEALTH TREATMENT PLAN NOTE DATE OF NOTE: JUN 07, 2023@13:18:14 ENTRY DATE: JUN 07, 2023@13:18:44 AUTHOR: SHANELL SMITH EXP COSIGNER: URGENCY: STATUS: COMPLETED MH TREATMENT PLAN - May, @ 01:18PM Visit Date: May, @ 13:18 - CWM/SO/[facility]AB[facility] INSURANCE REPRESENTATIVE: GRIFFIN WILSON / Juan Antonio Boateng TEAM MEMBERS: SHANELL SMITH: DIE FILER RISK ASSESSMENT (DANGER TO SELF AND OTHERS): Low risk to self or others PATIENT'S PERCEPTION OF NEEDS AND PREFERENCES: Good insight into problem(s) and is actively addressing the problem(s) PATIENT'S RESTRICTIONS: N/A PATIENT'S PRIVILEGES: N/A PATIENT'S STRENGTHS/ABILITIES: Expressed desire/motivation for change Employed or has income/benefits Works well with others Has supportive family and/or friends Capable of [place] Engages regularly in leisure or recreational interests Good communicator PATIENT'S BARRIERS TO CARE: None noted MENTAL HEALTH DIAGNOSES AND RELEVANT MEDICAL CONDITIONS: Posttraumatic stress disorder ([facility] [id number]) Major depressive disorder ([facility] [id number]) SIGNIFICANT PSYCHOSOCIAL AND CONTEXTUAL FACTORS: of a loved one Familial Problems TREATMENT PLAN: Problem: Problem/Need: [DEPRESSION]: I am experiencing depressive symptoms that include: irritability; fatigue. Goal: I want to decrease depression and improve mood. Objective: I will track events and thoughts and discuss in treatment. Progress will be measured through self report Projected Target Date: 02/05/2024 Intervention: [PSYCHOTHERAPY] My provider will work with me to achieve this goal and objective through Individual psycho therapy; CBT; Mindfulness; psycho- education Providers: SHANELL SMITH Time Frame: One time per month for 1 year Treating Specialty: [facility] [place] Renew[place] Date: 06/06/2024 Entered Treatment: 10/03/2021 @ 09:37AM Anticipated Discharge: 10/03/2022 Actual Discharge: None UPDATED/RESOLVED/INACTIVATED PROBLEMS & COMMENTS: RESOLVED PROBLEM: Problem/Need: [PTSD]: I have been experiencing the following post-traumatic stress symptoms: Flashbacks; irritability. Comments: reports his flashbacks of maryse in the foley is gone. He is able to recognize that it is a flashback and can ground himself. 06/07/2023 (by SHANELL SMITH) RESOLVED GOAL: I want to reduce flashbacks and irritability. Comments: Resolved by resolving problem. 06/07/2023 (by SHANELL SMITH) RESOLVED OBJECTIVE: I will learn how to improve how I handle the distress I feel when I am exposed to triggers associated with trauma. Progress will be measured through self report Comments: Resolved by resolving problem. 06/07/2023 (by SHANELL SMITH) RESOLVED INTERVENTION: [PSYCHOTHERAPY] My provider will work with me to achieve this goal and objective through Individual psychotherapy; CBT; Mindfulness; psycho-education Comments: Resolved by resolving problem. 06/07/2023 (by SHANELL SMITH) ACTIVE PROBLEM: Problem/Need: [DEPRESSION]: I am experiencing depressive symptoms that include: irritability; fatigue. Comments: Continue with this problem 06/07/2023 ACTIVE GOAL: I want to decrease depression and improve mood. Comments: Continue 06/07/2023 (by SHANELL SMITH) PARTICIPATION IN TREATMENT PLANNING: AGREED TO PLAN DISCUSSED. FAMILY PARTICIPATION IN TREATMENT PLANNING: 'S FAMILY NOT AVAILABLE. /es/ LUCY FORREST Switch Box Installer Mental Health Signed: 06/07/2023 13:18 Receipt Acknowledged By: 06/07/2023 13:30 /lili/ GRIFFIN WILSON, MSN, RN, CNL MENTAL HEALTH NURSE PROPOSITION PLAYER SHANELL SMITH
--- OUTSIDE RECORDS SUMMARY | 2024-03-23 01:13 | XMS_ITS | Encounter Summary ---
Author Name [facility] [place] Address [address] [place] [address] Care Team Providers Care Steel Pickler Name Role Phone BALTA MICHEL Primary Care [...] O MEDEX BRONZ E Apr 12, 2014 [id number] LOREN, OMAS PATIENT [place]BS [place] MEDICARE SUPPLEMEN KATHRYN MEDEX BRONZ E Mar 12, 2013 [id number] [phone] ALLI, OM[place] PATIENT [place] SUPP[place] KATHRYN MEDEX BRONZ E Mar 12, 2013 [id number] ALLI,BENITO OMAS PATIENT MEDICARE (WNR) MEDICARE (M) PART A Feb 10, 2013 PART A [id number] [id number] BENITO CARSON PATIENT MEDICARE (WNR) MEDICARE (M) PART B Feb 10, 2013 PART B [id number] TX12 EBNITO CARSON PATIENT MEDICARE (WNR) MEDICARE (M) PART A Feb 10, 2013 PART A [id number] TX12 [phone] BENITO CARSON PATIENT MEDICARE (WNR) MEDICARE (M) PART B Feb 10, 2013 PART B [id number] TX12 [phone] BENITO CARSON PATIENT Selected Encounter This section includes the information on record at [place] for the Encounter. Date/Time Encounter Type Encounter Description Reason Pro vider Source May 14, 2023 09:30 AM Outpatient Encounter PRIMARY CARE/MEDICINE [facility] Encounter Template Text not used by [place] Plan of Treatment: Future Appointments (+ 6 [...] 17, 2023 10:10 AM AMBULATORY - MEDICINE [facility] [place] [facility] Jun 10, 2023 11:00 AM AMBULATORY - PSYCHIATRY [facility] Jul 08, 2023 10:00 AM AMBULATORY - PSYCHIATRY [facility] August 12, 2023 11:00 AM AMBULATORY - PSYCHIATRY [facility] August 18, 2023 11:15 AM AMBULATORY - MEDICINE [facility] August 18, 2023 11:30 AM AMBULATORY - MEDICINE [facility] Sep 16, 2023 11:00 AM AMBULATORY - PSYCHIATRY [facility] Sep 22, 2023 12:00 PM AMBULATORY - MEDICINE [place] [facility] Oct 28, 2023 11:00 AM AMBULATORY - PSYCHIATRY [facility] Nov 01, 2023 11:00 AM AMBULATORY - MEDICINE [facility] Lab Results: +/- 30 days [...] Range Comment Apr 28, 2023 01:39 PM [facility] MICROALBUMIN CREATININE RATIO PANEL Specimen Type: URINE No comment entered. Ordering Provider: JEAN MARIE MICHEL Report Released Date/Time: Apr 22, 2023 02:14 PM Reporting Lab: [address] [address] Performing Lab: [address] [address] MICROALBUMIN/C REATININE RATIO 10.6 mg/g 0-29.9 MICROALBUMIN,Q UANTITATIVE 1.6 mg/dL RR UNAVAIL CREATININE URINE 150.39 mg/dL Apr 28, 2023 01:39 PM [facility] LIPID PANEL FASTING Specimen Type: SERUM No comment entered. Ordering Provider: JEAN MARIE MICHEL Report Released Date/Time: Apr 22, 2023 02:14 PM Reporting Lab: [facility] [address] [address] Performing Lab: [address] [address] CHOLESTEROL 83 mg/dL TRIGLYCERIDE 57 mg/dL 0-150 LDL calculated 31 mg/dL 0-129 CHOL/HDL 2.0 HDL CHOLESTEROL 41 mg/dL 40-60 Apr 28, 2023 01:39 PM [facility] BASIC METABOLIC PANEL (fasting) Specimen Type: SERUM No comment entered. Ordering Provider: JEAN MARIE MICHEL Report Released Date/Time: Apr 22, 2023 02:14 PM Reporting Lab: [facility] [address] [address] Performing Lab: [address] [address] UREA NITROGEN 22 mg/dL 7-25 GLUCOSE 81 mg/dL 65-100 SODIUM 137 mmol/L 135-145 POTASSIUM 4.1 mmol/L 3.5-5.0 CHLORIDE 103 mmol/L 100-110 CO2 23 meq/L 20-30 CREATININE, Serum 1.18 mg/dL 0.50-1.40 eGFR(CKD-EPI 2020) 64 mL/min >60 Apr 28, 2023 01:39 PM [facility] HEMOGLOBIN A1C PANEL Specimen Type: BLOOD [...] Apr 22, 2023 02:14 PM Reporting Lab: [address] [address] Performing Lab: [address] [address] HEMOGLOBIN A1C 5.6 4.0-5.6 Apr 28, 2023 01:39 PM [facility] TSH Specimen Type: SERUM No comment entered. Ordering Provider: JEAN MARIE MICHEL Report Released Date/Time: Apr 22, 2023 02:14 PM Reporting Lab: [address] [address] Performing Lab: [address] [address] TSH 2.38 u[IU]/mL 0.35-5.00 Apr 28, 2023 01:39 PM [facility] LIVER FUNCTION Specimen Type: SERUM No comment entered. Ordering Provider: JEAN MARIE MICHEL Report Released Date/Time: Apr 22, 2023 02:14 PM Reporting Lab: [address] [address] Performing Lab: [address] [place] [address] PROTEIN,TOTAL 6.5 g/dL 6.0-8.3 ALBUMIN 3.8 g/dL 3.5-5.0 ALKALINE PHOSPHATASE 109 U/L 40-150 AST 35 U/L H 5-34 ALT 36 U/L BILIRUBIN, TOTAL 1.0 mg/dL 0.2-1.2 Apr 28, 2023 01:39 PM [facility] CBC AND DIFF (AUTO) Specimen Type: BLOOD No comment entered. Ordering Provider: JEAN MARIE MICHEL Report Released Date/Time: Apr 22, 2023 02:14 PM Reporting Lab: [address] [address] Performing Lab: [address] [address] WBC 4.69 10*3/uL 4.50-11.00 RBC 4.53 10*6/uL 4.23-5.66 HGB 12.7 g/dL L 12.8-17 HCT 38.4 L 39.2-50.4 MCV 84.8 fL 82-99 MCHC 33.1 g/dL 30.8-35.1 PLT 178 10*3/uL 140-360 RDW-CV 13.2 12.0-16.0 [place], Abs 0.47 10*3/uL 0.30-1.10 MCH 28.0 pg 26.2-32.6 Neut % 51.6 43.7-75.8 Lymph % 34.8 14.0-42.3 [place] % 10.0 5.1-13.7 Eos % 2.8 0.4-6.8 [...] Encounter Note(s) Provider Source May 14, 2023 09:30 AM PRIMARY CARE NOTE: LOCAL TITLE: WALK-IN NOTE PRIMARY CARE (T) STANDARD TITLE: PRIMARY CARE NOTE DATE OF NOTE: MAY 14, 2023@09:30 ENTRY DATE: MAY 14, 2023@09:30:48 AUTHOR: EDITH PADGETT EXP COSIGNER: URGENCY: STATUS: COMPLETED <====Click to Start Advanced Medical Support Perry presents to the Primary Care clinic with the following request: [ ]Medication Renewal/Refill [ ]Consultation with Team RN [ X ]Symptoms [ ]Other The Perry states they are: [ X ]Waiting [ ]Not Waiting Yes Walk in visit scheduled with PACT Nurse [ X ] At this encounter the 's demographics were verified. [ X ] At this encounter the Perry's Insurance information was verified. [ X ] At this encounter the below scheduled visits for the Perry were discussed and appointment reminder card was offered. 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
--- OUTSIDE RECORDS SUMMARY | 2024-03-23 01:13 | XMS_ITS | Encounter Summary ---
Author Name [place] Address [address] [place] [address] Care Team Providers Care Embedded Linux Engineer Name Role Phone BALTA MICHEL Primary [...] O MEDEX BRONZ E Apr 12, 2014 [id number] WILUSZ,TH OMAS PATIENT [place] MEDICARE SUPPLEMEN KATHRYN MEDEX BRONZ E Mar 12, 2013 [id number] WILUSZ,TH [place] KATHRYN MEDEX BRONZ E Mar 12, 2013 [id number] [phone] WILLOREN,TH OMAS PATIENT MEDICARE (WNR) MEDICARE (M) PART B Feb 10, 2013 PART B [id number] [id number] [phone] BENITO CARSON PATIENT MEDICARE (WNR) MEDICARE (M) PART A Feb 10, 2013 PART A [id number] [id number] BENITO CARSON PATIENT MEDICARE (WNR) MEDICARE (M) PART A Feb 10, 2013 PART A [id number] TX12 BENITO CARSON PATIENT MEDICARE (WNR) MEDICARE (M) PART B Feb 10, 2013 PART B [id number] TX12 BENITO CARSON PATIENT Selected Encounter This section includes the information on record at [place] for the Encounter. Date/Time Encounter Type Encounter Description Reason Provider Source May 14, 2023 09:30 AM OFFICE O/P EST LOW 20 MIN PRIMARY CARE/MEDICINE ICD-10-CM L02.212 Cutaneous abscess of back [any part, except buttock] YANETH PAREKH [facility] Encounter Template Text not used by [place] Assessments - Encounter Diagnoses This section includes the primary and secondary diagnoses documented for the Encounter. Date/Time Primary/Secondary Diagnosis Diagnosis Name Provider Source May 28, 2023 09:13 AM PRIMARY Cutaneous abscess of back [any part, except buttock] YANETH PAREKH [facility] Plan of Treatment: Future Appointments (+ 6 months) and Future Tests (+/- 45 days) The Plan of Treatment section includes future care activities for the patient from all [place] treatmentfacilities. This section includes future appointments and future orders which are active, pending or scheduled. Future Appointments This section includes appointments that were scheduled to occur 6 months from the date of the Encounter, up to a maximum of 20 appointments. The data comes from all [place] treatment facilities. Appointment Date/Time Appointment Type Appointme nt Facility Name May 17, 2023 10:10 AM AMBULATORY [place]ICINE [place] C [facility] Jun 10, 2023 11:00 AM AMBULATORY - PSYCHIATRY [facility] Jul 08, 2023 10:00 AM AMBULATORY - PSYCHIATRY [facility] August 12, 2023 11:00 AM AMBULATORY - PSYCHIATRY [facility] August 18, 2023 11:15 AM [facility] August 18, 2023 11:30 AM AMBULATORY - MEDICINE [facility] Sep 16, 2023 11:00 AM AMBULATORY - PSYCHIATRY [facility] Sep 22, 2023 12:00 PM AMBULATORY - MEDICINE [place] [facility] Oct 28, 2023 11:00 AM AMBULATORY - PSYCHIATRY [facility] Nov 01, 2023 11:00 AM [place] [facility] Lab Results: +/- 30 days of the encounter This section includes the Chemistry and Hematology Lab Results on record with [place] for the patient. Radiology Reports and Pathology Reports are provided separately, in subsequent sections. Lab Results This section contains the Chemistry/Hematology Results that were resulted 30 days before or 30 daysafter the date of the Encounter. Date/Time Source Result Type Result - Unit Interpretation Reference Range Comment Apr 28, 2023 01:39 PM [facility] MICROALBUMIN CREATININE RATIO PANEL Specimen Type: URINE No comment entered. Ordering Provider: JEAN MARIE MICHEL Report Released Date/Time: Apr 22, 2023 02:14 PM Reporting Lab: [facility] [address] [address] Performing Lab: [facility] [address] [facility] [address] MICROALBUMIN/C REATININE RATIO 10.6 mg/g 0-29.9 MICROALBUMIN,Q UANTITATIVE 1.6 mg/dL RR UNAVAIL CREATININE URINE 150.39 mg/dL Apr 28, 2023 01:39 PM [facility] LIPID PANEL FASTING Specimen Type: SERUM No comment entered. Ordering Provider: JEAN MARIE MICHEL Report Released Date/Time: Apr 22, 2023 02:14 PM Reporting Lab: [facility] [address] [facility] [address] Performing Lab: [facility] [address] [facility] [facility] [address] CHOLESTEROL 83 mg/dL TRIGLYCERIDE 57 mg/dL 0-150 LDL calculated 31 mg/dL 0-129 CHOL/HDL 2.0 HDL CHOLESTEROL 41 mg/dL 40-60 Apr 28, 2023 01:39 PM [facility] LIVER FUNCTION Specimen Type: SERUM No comment entered. Ordering Provider: JEAN MARIE MICHEL Report Released Date/Time: Apr 22, 2023 02:14 PM Reporting Lab: [address] [address] Performing Lab: [address] [address] PROTEIN,TOTAL 6.5 g/dL 6.0-8.3 ALBUMIN 3.8 g/dL 3.5-5.0 ALKALINE PHOSPHATASE 109 U/L 40-150 AST 35 U/L H 5-34 ALT 36 U/L BILIRUBIN, TOTAL 1.0 mg/dL 0.2-1.2 Apr 28, 2023 01:39 PM [facility] BASIC METABOLIC PANEL (fasting) Specimen Type: SERUM No comment entered. Ordering Provider: JEAN MARIE MICHEL Report Released Date/Time: Apr 22, 2023 02:14 PM Reporting Lab: [address] [address] Performing Lab: [address] [address] UREA NITROGEN 22 mg/dL 7-25 GLUCOSE 81 mg/dL 65-100 SODIUM 137 mmol/L 135-145 POTASSIUM 4.1 mmol/L 3.5-5.0 CHLORIDE 103 mmol/L 100-110 CO2 23 meq/L 20-30 CREATININE, Serum 1.18 mg/dL 0.50-1.40 eGFR(CKD-EPI 2020) 64 mL/min >60 Apr 28, 2023 01:39 PM [facility] HEMOGLOBIN A1C PANEL Specimen Type: BLOOD [...] Apr 22, 2023 02:14 PM Reporting Lab: [address] [address] Performing Lab: [facility] [address] [facility] [address] HEMOGLOBIN A1C 5.6 4.0-5.6 Apr 28, 2023 01:39 PM [facility] TSH Specimen Type: SERUM No comment entered. Ordering Provider: JEAN MARIE MIHCEL Report Released Date/Time: Apr 22, 2023 02:14 PM Reporting Lab: [facility] [address] [facility] [address] Performing Lab: [facility] [address] [facility] [address] TSH 2.38 u[IU]/mL 0.35-5.00 Apr 28, 2023 01:39 PM [facility] CBC AND DIFF (AUTO) Specimen Type: BLOOD No comment entered. Ordering Provider: JEAN MARIE MICHEL Report Released Date/Time: Apr 22, 2023 02:14 PM Reporting Lab: [facility] [address] [facility] [address] Performing Lab: [address] [address] WBC 4.69 10*3/uL 4.50-11.00 RBC 4.53 10*6/uL 4.23-5.66 HGB 12.7 g/dL L 12.8-17 HCT 38.4 L 39.2-50.4 MCV 84.8 fL 82-99 MCHC 33.1 g/dL 30.8-35.1 PLT 178 10*3/uL 140-360 RDW-CV 13.2 12.0-16.0 [place], Abs 0.47 10*3/uL 0.30-1.10 MCH 28.0 pg 26.2-32.6 Neut % 51.6 43.7-75.8 Lymph % 34.8 14.0-42.3 [place] % 10.0 5.1-13.7 Eos % 2.8 0.4-6.8 [...] AM 98 67 122/77 15 97 0 [facility] Social History: Smoking Status (Most current) and Tobacco Use (All prior to encounter date) This section includes the most current, and the historical, smoking and tobacco- related health factors from the [place] facility where the Encounter took place. Current Smoking Status This section includes the most current smoking, or tobacco-related health factor, from the [place] facility where the Encounter took place. Date/Time Current Smoking Status Comment Facil ity Sep 29, 2022 10:30 AM VA-TOBACCO FORMER USER [facility] Tobacco Use History This section includes a history of the smoking, or tobacco-related health factors, that were collected on or before the date of the Encounter. The data comes from the [place] facility where the Encounter took place. Date/Time Smoking Status/Tobacco Use Comment F katerine Sep 29, 2022 10:30 AM VA-TOBACCO QUIT 15 YRS OR MORE [facility] Jan 21, 2021 09:00 AM VA-TOBACCO NEVER USED [facility] Feb 14, 2020 01:00 PM VA-TOBACCO FORMER USER [facility] Feb 14, 2020 01:00 PM VA-TOBACCO QUIT 15 YRS OR MORE [facility] Jul 05, 2018 03:54 PM VA-TOBACCO FORMER USER [facility] Jul 05, 2018 03:54 PM VA-TOBACCO QUIT 15 YRS OR MORE [facility] May 19, 2017 01:01 PM QUIT TOBACCO USE > 7 YEARS AGO [facility] Apr 29, 2016 12:14 PM QUIT TOBACCO USE > 7 YEARS AGO Quit 20 years ago [facility] Mar 21, 2015 02:25 PM QUIT TOBACCO USE > 7 YEARS AGO [facility] May 03, 2012 12:04 PM QUIT TOBACCO USE > 7 YEARS AGO [facility] Encounter Notes: All associated encounter notes This section contains the clinical notes associated to the Encounter. Date/Time Encounter Note(s) Provider Source May 14, 2023 09:56 AM NURSE PRACTITIONER NOTE: LOCAL TITLE: NURSE PRACTIONER/SICK VISIT STANDARD TITLE: NURSE PRACTITIONER NOTE DATE OF NOTE: MAY 14, 2023@09:56 ENTRY DATE: MAY 14, 2023@09:56:26 AUTHOR: YANETH PAREKH COSIGNER: URGENCY: STATUS: COMPLETED SICK CALL VISIT PETTY JOSE CARSON is a 73 y/o WHITE MALE who presents to [facility] sick call with c/o F/U I&D abscess on back. Was sent to general surgeon by PCP for possible exploratory I&D following in-clinic I&D but surgeon did not need to open the area. Continued patient on additional five days of ATB only. [place] PCP: ======= BALTA MICHEL VITAL SIGNS: Temperature 98 F [36.7 C] (05/14/2023 09:47) Blood Pressure 122/77 (05/14/2023 09:47) Pulse 67 (05/14/2023 09:47) Respiration 15 (05/14/2023 09:47) Pain 0 (05/14/2023 09:47) BMI BMI: 35.3 Weight 218 lb [98.88 kg] (05/03/2023 08:52) Pulse Oximetry 97% (05/14/2023 09:47) REVIEW OF SYSTEMS: see HPI PHYSICAL EXAMINATION: General: Well-appearing in no obvious distress. Mental Status: Alert and oriented x4. Respiratory: respirations easy and unlabored. Integument: abscess site on right upper back healed, no drainage or s/s infection, nontender Psych: Normal mood and affect. Normal judgment. Cooperative with exam, follows commands. ASSESSMENT/PLAN: 1. s/p abscess, I&D - site healed. Continue ATB until complete MEDICATIONS reviewed with FOLLOW UP: Return to clinic PRN UPCOMING APPOINTMENTS: No data available /es/ SHANELL MCCARTHY CERTIFIED NURSE PRACTITIONER Signed: 05/14/2023 10:00 YANETH PAREKH [facility]
--- OUTSIDE RECORDS SUMMARY | 2024-03-23 01:13 | XMS_ITS ---
Author Name [facility] [place] [facility] [place] Address [address] [place] [address] Care Team Providers Care Sharepoint Engineer Name Role Phone BALTA MICHEL Primary [...] O MEDEX BRONZ E Apr 12, 2014 [id number] WILLOREN, OMAS PATIENT [place] MEDICARE SUPPLEMEN KATHRYN MEDEX BRONZ E Mar 12, 2013 [id number] WILL[place]EN, [place] PAT[place] SUPP[place] KATHRYN MEDEX BRONZ E Mar 12, 2013 [id number] ALLI,BENITO OMAS PATIENT MEDICARE (WNR) MEDICARE (M) PART B Feb 10, 2013 PART B [id number] TX12 BENITO CARSON PATIENT MEDICARE (WNR) MEDICARE (M) PART A Feb 10, 2013 PART A [id number] TX12 BENITO CARSON PATIENT MEDICARE (WNR) MEDICARE (M) PART A Feb 10, 2013 PART A [id number] TX12 [phone] BENITO CARSON PATIENT MEDICARE (WNR) MEDICARE (M) PART B Feb 10, 2013 PART B [id number] TX12 BENITO CARSON PATIENT Selected Encounter This section includes the information on record at [place] for the Encounter. Date/Time Encounter Type Encounter Description Reason Pro vider Source Aug 09, 2023 02:20 PM Outpatient Encounter PRIMARY CARE/MEDICINE IHE Encounter Template Text not used by [place] Plan of Treatment: Future Appointments (+ 6 months) and Future Tests (+/- 45 days) The Plan of Treatment section includes future care activities for the patient from all [place] treatmentfacilities. This section includes future appointments and future orders which are active, pending or scheduled. Future Appointments This section includes appointments that were scheduled to occur 6 months from the date of the Encounter, up to a maximum of 20 appointments. The data comes from all [place] treatment facilities. Appointment Date/Time Appointment Type Appointme [...] 22, 2023 12:00 PM AMBULATORY - MEDICINE [place] [facility] Oct 28, 2023 11:00 AM AMBULATORY - PSYCHIATRY [facility] Nov 01, 2023 11:00 AM AMBULATORY - MEDICINE [place] C [place] [facility] Dec 02, 2023 11:00 AM AMBULATORY - NONE [place] [facility] [place] [facility] Dec 09, 2023 11:00 AM AMBULATORY - PSYCHIATRY [facility] Dec 21, 2023 10:00 AM AMBULATORY - MEDICINE [facility] ([id number]) Dec 28, 2023 10:00 AM AMBULATORY - MEDICINE [facility] (6[facility]) Jan 04, 2024 10:00 AM AMBULATORY - NONE [facility] Jan 06, 2024 11:00 AM AMBULATORY - PSYCHIATRY [facility] Jan 11, 2024 10:00 AM AMBULATORY - NONE [facility] Active, Pending, and Scheduled Orders This section includes a listing of several types of active, pending, and scheduled orders, including clinic medications orders, diagnostic test orders, procedure orders and consult orders; where the start date of the order is 45 days before the date of the Encounter or 45 days after the date of theEncounter. The data comes from all [facility] facilities. Test Date/Time Test Type Test Details Facility Name Aug 02, 2023 12:00 AM Laboratory - Chemi stry Order FERRITIN BLOOD (SST-SERUM) [facility] Aug 02, 2023 12:00 AM Laboratory - Chemi stry Order VITAMIN B12 BLOOD (SST-SERUM) [facility] Aug 02, 2023 12:00 AM Laboratory - Chemi stry Order FOLATE BLOOD (SST-SERUM) [facility] Aug 02, 2023 12:00 AM Laboratory - Chemi stry Order CBC AND DIFF (AUTO) BLOOD (LAV-BLOOD) [facility] Aug 02, 2023 12:00 AM Laboratory - Chemi stry Order IRON & TIBC PANEL BLOOD (SST-SERUM) [facility] Radiology Reports: +/- 30 days of the encounter Radiology Reports For cases when an order for radiology services may have been completed prior to the date of the Encounter, the report list includes the Radiology Reports that were completed up to 30 days before dateof the Encounter. For cases when an order for radiology services may have been completed after the date of the Encounter, the report list also includes the Radiology Reports that were completed up to30 days after date of the Encounter. The data comes from all [facility]. Date/Time Radiology Report Provider Source August 18, 2023 02:36 PM HAND3 OR MORE VIEWS(RIGHT): PETTY CARSON [id number] -1950 M Exm Date: AUGUST 18, 2023@14:36 Req Phys: YANETH MAJANO Pat Loc: CWM/SO/SICK CALL SLD INCLUSION TEACHER (Req'g Loc Img Loc: [facility] 1 Service: Unknown [facility] , (Case 340 COMPLETE) HAND3 OR MORE VIEWS(RIGHT) (RAD Detailed) CPT:49689 Reason for Study: pain and swelling right hand along thumb Clinical History: Covering resident, fellow, SLD INCLUSION TEACHER or attending: Yaneth majano NP [place] Pager: [phone] Backup pager: History: no injury or trauma Report Status: Verified Date Reported: AUGUST 18, 2023 Date Verified: AUGUST 18, 2023 Blood Tester E-Sig:/ES/MOLLY LOCKWOOD JR Report: Study: AP, lateral, and oblique views of the right hand. COMPARISON: None. FINDINGS: Mild diffuse soft tissue swelling is seen of the fingers. Vascular calcifications are seen around the wrists. No radiopaque foreign body is identified. The joint space erosions are identified. 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 Moderate degenerative osteoarthritic changes are present to the IP joints of the right hand. No joint space erosions are identified. Moderate to severe degenerative osteoarthritic changes are present to the right first CMC joint space. The remaining right hand joint spaces are normal and well-maintained. No bony fracture, dislocation or subluxation is identified. Impression: Joint space changes of the right hand, as described above. Primary Diagnostic Code: No immediate attention required Primary Interpreting Staff: MOLLY LOCKWOOD JR, Radiologist (Blood Tester) /MOLLY BLAS JR [facility] August 18, 2023 02:36 PM FOOT 3 OR MORE VIEWS (RIGHT): WAYNEOrestesPETTY [id number] -1950 M Exm Date: AUGUST 18, 2023@14:36 Req Phys: YANETH MAJANO Pat Loc: CWM/SO/SICK CALL SLD INCLUSION TEACHER (Req'g Loc Img Loc: [facility] 1 Service: Unknown [facility] , (Case [id number] COMPLETE) FOOT 3 OR MORE VIEWS (RIGHT) (RAD Detailed) CPT:04533 CPT Modifiers : RT RIGHT SIDE Reason for Study: pain and swelling right foot along great toe Clinical History: Covering resident, fellow, SLD INCLUSION TEACHER or attending: Yaneth Majano NP [place] Pager: [phone] Backup pager: History: no injury or trauma Report Status: Verified Date Reported: AUGUST 18, 2023 Date Verified: AUGUST 18, 2023 Blood Tester E-Sig:/ES/MOLLY LOCKWOOD JR Report: Study: Weight-bearing AP, lateral, and oblique views of the right foot. Comparison: None. Findings: The bony mineralization is normal. There is no acute bony fracture, dislocation or subluxation. Calcific enthesopathy changes at the insertion of the Achilles tendon. Mild loss of the plantar arch. Large inferior calcaneal spur present. Severe degenerative osteoarthritic changes present to the first MTP joint space with adjacent medial bunion and prominent dorsal osteophytes. Old healed fracture of the right second metatarsal bone present. Impression: No acute bony abnormalities with prominent arthritic changes of the first MTP joint space, as described above. Primary Diagnostic Code: No immediate attention required Primary Interpreting Staff: MOLLY LOCKWOOD JR, Radiologist (Blood Tester) /MOLLY BLAS JR [facility] Encounter Notes: All associated encounter notes This section contains the clinical notes associated to the Encounter. Date/Time Encounter Note(s) Provider Source Aug 09, 2023 02:20 PM PRIMARY CARE SECUR E MESSAGING: LOCAL TITLE: PRIMARY CARE SECURE MESSAGING STANDARD TITLE: PRIMARY CARE SECURE MESSAGING DATE OF NOTE: AUG 09, 2023@14:20 ENTRY DATE: AUG 09, 2023@15:20:22 AUTHOR: MAYA MUÑOZ COSIGNER: URGENCY: STATUS: COMPLETED ------Original Message ----- Sent: 08/09/2023 03:04 PM ET From: PETTY CARSON To: Kilo MICHEL_PRIMARY CARE_SPO Subject: Medication:Please refill DICLOFENAC NA 50MG EC TAB Please refill DICLOFENAC NA 50MG EC TAB /es/ MAYA NAVARRO Signed: 08/09/2023 15:20 Receipt Acknowledged By: 08/10/2023 13:30 /es/ MAYDA GALLEGOS LPN LPN 08/09/2023 15:22 /es/ ANNALISA HAWKINSN,RN-BC REGISTERED NURSE (RN) MAYA MUÑOZ [facility]
--- OUTSIDE RECORDS SUMMARY | 2024-03-23 01:14 | XMS_ITS | Encounter Summary ---
Author Name [facility] [place] Address [address] [place] [address] Care Team Providers Care Emergency Management Director Name Role Phone BALTA MICHEL Primary [...] O MEDEX BRONZ E Apr 12, 2014 [id number] WILUSZ,TH OM[place] PATIENT [place] MED[place]ARE SUPPLEMEN KATHRYN MEDEX BRONZ E Mar 12, 2013 [id number] WILUSZ,TH [place] SU[place] KATHRYN MEDEX BRONZ E Mar 12, 2013 [id number] WILZ,TH OMAS PATIENT MEDICARE (WNR) MEDICARE (M) PART B Feb 10, 2013 PART B [id number] TX12 BENITO CARSON PATIENT MEDICARE (WNR) MEDICARE (M) PART A Feb 10, 2013 PART A [id number] TX12 BENITO CARSON PATIENT MEDICARE (WNR) MEDICARE (M) PART A Feb 10, 2013 PART A [id number] TX12 [phone] BENITO CARSON PATIENT MEDICARE (WNR) MEDICARE (M) PART B Feb 10, 2013 PART B [id number] TX12 BENITO CARSON PATIENT Selected Encounter This section includes the information on record at [place] for the Encounter. Date/Time Encounter Type Encounter Description Reason Provider Source August 12, 2023 11:00 AM PSYTX W PT 60 [facility]UTES [facility] - IND ICD-10-CM F43.12 Post-traumatic stress disorder, chronic SHANELL SMITH Mike Encounter Template Text not used by [place] Assessments - Encounter Diagnoses This section includes the primary and secondary diagnoses documented for the Encounter. Date/Time Primary/Secondary Diagnosis Diagnosis Name Provider Source August 12, 2023 12:30 PM PRIMARY Post-traumatic stress disorder, chronic SHANELL SMITH August 12, 2023 12:30 PM SECONDARY Major depressv disorder, single episode, in partial remis SHANELL SMITH Plan of Treatment: Future Appointments (+ 6 months) and Future Tests (+/- 45 days) The Plan of Treatment section includes future care activities for the patient from all [place] treatmentfacilities. This section includes future appointments and future orders which are active, pending or scheduled. Future Appointments This section includes appointments that were scheduled to occur 6 months from the date of the Encounter, up to a maximum of 20 appointments. The data comes from all [place] treatment facilities. Appointment Date/Time Appointment Type Appointme nt Facility Name August 18, 2023 11:15 AM AMBULATORY - MEDICINE [facility] August 18, 2023 11:30 AM AMBULATORY - MEDICINE [facility] Sep 16, 2023 11:00 AM AMBULATORY - PSYCHIATRY [facility] Sep 22, 2023 12:00 PM AMBULATORY - MEDICINE [place] [facility] Oct 28, 2023 11:00 AM AMBULATORY - PSYCHIATRY [facility] Nov 01, 2023 11:00 AM AMBULATORY - MEDICINE [place] C [facility] Dec 02, 2023 11:00 AM AM[facility] Dec 09, 2023 11:00 AM AMBULATORY - PSYCHIATRY [facility] Dec 21, 2023 10:00 AM AMBULATORY - MEDICINE [facility] ([id number]) Dec 28, 2023 10:00 AM AMBULATORY - MEDICINE [facility] (631GE) Jan 04, 2024 10:00 AM AM[facility]UL[facility]ORY [facility] NONE [facility] Jan 06, 2024 11:00 AM AMBULATORY - PSYCHIATRY [facility] Jan 11, 2024 10:00 AM AMBULATORY - NONE [place] [facility] Feb 10, 2024 11:00 AM AMBULATORY - PSYCHIATRY [facility] Active, Pending, and Scheduled Orders This section includes a listing of several types of active, pending, and scheduled orders, including clinic medications orders, diagnostic test orders, procedure orders and consult orders; where the start date of the order is 45 days before the date of the Encounter or 45 days after the date of theEncounter. The data comes from all [place] treatment facilities. Test Date/Time Test Type Test Details Facility Name Aug 02, 2023 12:00 AM Laboratory - Chemi stry Order CBC AND DIFF (AUTO) BLOOD (LAV-BLOOD) [facility] Aug 02, 2023 12:00 AM Laboratory - Chemi stry Order FERRITIN BLOOD (SST-SERUM) [facility] Aug 02, 2023 12:00 AM Laboratory - Chemi stry Order VITAMIN B12 BLOOD (SST-SERUM) [facility] Aug 02, 2023 12:00 AM Laboratory - Chemi stry Order FOLATE BLOOD (SST-SERUM) [facility] Aug 02, 2023 12:00 AM Laboratory - Chemi stry Order IRON & TIBC PANEL BLOOD (SST-SERUM) [facility] Social History: Smoking Status (Most current) and Tobacco Use (All prior to encounter date) This section includes the most current, and the historical, smoking and tobacco- related health factors from the [place] facility where the Encounter took place. Current Smoking Status This section includes the most current smoking, or tobacco-related health factor, from the [place] facility where the Encounter took place. Date/Time Current Smoking Status Comment Gonzalo ity Sep 29, 2022 10:30 AM VA-TOBACCO FORMER USER [facility] Tobacco Use History This section includes a history of the smoking, or tobacco-related health factors, that were collected on or before the date of the Encounter. The data comes from the [place] facility where the Encounter took place. Date/Time Smoking Status/Tobacco Use Comment F acility Sep 29, 2022 10:30 AM VA-TOBACCO QUIT 15 YRS OR MORE [facility] Jan 21, 2021 09:00 AM VA-TOBACCO NEVER USED [facility] Feb 14, 2020 01:00 PM VA-TOBACCO FORMER USER [facility] Feb 14, 2020 01:00 PM VA-TOBACCO QUIT 15 YRS OR MORE [facility] Jul 05, 2018 03:54 PM VA-TOBACCO FORMER USER [facility] Jul 05, 2018 03:54 PM VA-TOBACCO QUIT 15 YRS OR MORE [facility] May 19, 2017 01:01 PM QUIT TOBACCO USE > 7 YEARS AGO [facility] Apr 29, 2016 12:14 PM QUIT TOBACCO USE > 7 YEARS AGO Quit 20 years ago [facility] Mar 21, 2015 02:25 PM QUIT TOBACCO USE > 7 YEARS AGO [facility] May 03, 2012 12:04 PM QUIT TOBACCO USE > 7 YEARS AGO [facility] Radiology Reports: +/- 30 days of the [...] the Encounter. The data comes from all [place] treatment facilities. Date/Time Radiology Report Provider Source August 18, 2023 02:36 PM HAND3 OR MORE VIEWS(RIGHT): PETTY CARSON [id number] -1950 M Exm Date: AUGUST 18, 2023@14:36 Req Phys: YANETH MAJANO Loc: CWM/SO/SICK CALL PELT DROPPER (Req'g Loc Img Loc: [facility] 1 Service: Unknown [place] [facility] , (Case 340 COMPLETE) HAND3 OR MORE VIEWS(RIGHT) (RAD Detailed) CPT:93221 Reason for Study: pain and swelling right hand along thumb Clinical History: Covering resident, fellow, PELT DROPPER or attending: Yaneth majano NP [place] Pager: [phone] Backup pager: History: no injury or trauma Report Status: Verified Date Reported: AUGUST 18, 2023 Date Verified: AUGUST 18, 2023 Car Sweeper E-Sig:/ES/MOLLY LOCKWOOD JR Report: Study: AP, lateral, [...] Primary Interpreting Staff: MOLLY LOCKWOOD JR, Radiologist (Car Sweeper) /MOLLY BLAS JR [facility] August 18, 2023 02:36 PM FOOT 3 OR MORE VIEWS (RIGHT): WAYNEOrestesPETTY [id number] -1950 M [facility] Date: AUGUST 18, 2023@14:36 Req Phys: YANETH MAJANO Pat Loc: CWM/SO/SICK CALL PELT DROPPER (Req'g Loc Img Loc: [facility] 1 Service: Unknown [facility] , (Case 342 COMPLETE) FOOT 3 OR MORE VIEWS (RIGHT) (RAD Detailed) CPT:77022 CPT Modifiers : RT RIGHT SIDE Reason for Study: pain and swelling right foot along great toe Clinical History: Covering resident, fellow, PELT DROPPER or attending: Yaneth Majano NP [place] Pager: [phone] Backup pager: History: no injury or trauma Report Status: Verified Date Reported: AUGUST 18, 2023 Date Verified: AUGUST 18, 2023 Car Sweeper E-Sig:/ES/MOLLY LOCKWOOD JR Report: Study: Weight-bearing AP, [...] Primary Interpreting Staff: MOLLY LOCKWOOD JR, Radiologist (Car Sweeper) /MOLLY BLAS JR [facility] Encounter Notes: All associated encounter notes This section contains the clinical notes associated to the Encounter. Date/Time Encounter Note(s) Provider Source August 12, 2023 11:00 AM SOCIAL WORK NOTE: LOCAL TITLE: SOCIAL WORK NOTE STANDARD TITLE: SOCIAL WORK NOTE DATE OF NOTE: AUGUST 12, 2023@11:00 ENTRY DATE: AUGUST 12, 2023@12:23:06 AUTHOR: SHANELL SMITH COSIGNER: URGENCY: STATUS: COMPLETED INFORMED CONSENT REVIEWED: At beginning of session reviewed rights and limits of confidentiality, mandatory reporting situations, duty to warn and protect, Jesus Warning, (if treatment team finds patient to be an acute danger to himself or others, that this information could be relayed to a court of law and presented to a basin finish operator tig welder), and DOD access for active duty service members. Provided Suicide Prevention Hotline number, and other contact numbers as necessary. 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 SESSION FOCUS: Met with face to face for individual counseling. Service dog Lizet was with him. Milton stated she is losing weight and has other symptoms that just started this week. He is going to try to get a urine sample from her and take her to the Vets. spoke about how close he is to the dog I live vicariously through her. He shared that he cooks all her meals from scratch every 3 days. Asked if he took the same care for himself. He stated no he doesn't. He knows he needs to have better self care not only nutritionally but emotionally also. He has many interests but will talk himself out of it because they can't include his dog. We explored what might be behind these thoughts. stated overall he is stable and has the support of friends and family. INTERVENTIONS: Psychotherapeutic Interventions: AL; Reflective listening and support ASSESSMENT: BRIEF ASSESSMENT [...] PLAN FOR FOLLOW-UP: Next session planned for: 09/16/23 at 11am /lili/ SHANELL SMITH PBX INSPECTOR Hand [employer] Signed: 08/12/2023 12:30 SHANELL SMITH [facility]
--- OUTSIDE RECORDS SUMMARY | 2024-03-23 01:14 | XMS_ITS | Encounter Summary ---
Author Name [place] Address [address] [place] [address] Care Team Providers Care Supervisor Plating And Point Assembly Name Role Phone BALTA MICHEL Primary Care [...] O MEDEX BRONZ E Apr 12, 2014 [id number] WILLOREN, OMAS PATIENT [place] MEDICARE SUPPLEMEN KATHRYN MEDEX BRONZ E Mar 12, 2013 [id number] [phone] [place], [place] KATHRYN MEDEX BRONZ E Mar 12, 2013 [id number] WILLOREN,TH OMAS PATIENT MEDICARE (WNR) MEDICARE (M) PART B Feb 10, 2013 PART B [id number] TX12 BENITO CARSON PATIENT MEDICARE (WNR) MEDICARE (M) PART A Feb 10, 2013 PART A [id number] TX12 BENITO CARSON PATIENT MEDICARE (WNR) MEDICARE (M) PART A Feb 10, 2013 PART A [id number] TX12 [phone] BENITO CARSON PATIENT MEDICARE (WNR) MEDICARE (M) PART B Feb 10, 2013 PART B [id number] TX12 BENITO CARSON PATIENT Selected Encounter This section includes the information on record at [place] for the Encounter. Date/Time Encounter Type Encounter Description Reason Pro vider Source Sep 20, 2023 12:10 PM Outpatient Encounter COMMUNITY CARE CONSULT IHE Encounter Template Text not used by [place] Plan of Treatment: Future Appointments (+ 6 months) and Future Tests (+/- 45 days) The Plan of Treatment section includes future care activities for the patient from all [place] treatmentfacilities. This section includes future appointments and future orders which are active, pending or scheduled. Future Appointments This section includes appointments that were scheduled to occur 6 months from the date of the Encounter, up to a maximum of 20 appointments. The data comes from all [place] treatment facilities. Appointment Date/Time Appointment Type Appointme nt Facility Name Sep 22, 2023 12:00 PM AMBULATORY - MEDICINE [facility] [place] [facility] Oct 28, 2023 11:00 AM AMBULATORY - PSYCHIATRY [facility] Nov 01, 2023 11:00 AM AMBULATORY - MEDICINE [facility]L [place] [facility] Dec 02, 2023 11:00 AM AMBULATORY - NONE [place] [facility] Dec 09, 2023 11:00 AM AMBULATORY - PSYCHIATRY [facility] Dec 21, 2023 10:00 AM AMBULATORY - MEDICINE [facility] ([id number]) Dec 28, 2023 10:00 AM AMBULATORY - MEDICINE [facility] (631GE) Jan 04, 2024 10:00 AM AMBULATORY - NONE [place] [facility] Jan 06, 2024 11:00 AM AMBULATORY - PSYCHIATRY [facility] Jan 11, 2024 10:00 AM AMBULATORY - NONE [facility] Feb 10, 2024 11:00 AM AMBULATORY - PSYCHIATRY [facility] Mar 16, 2024 10:00 AM AMBULATORY - PSYCHIATRY [facility] Active, Pending, and Scheduled Orders This section includes a listing of several types of active, pending, and scheduled orders, including clinic medications orders, diagnostic test orders, procedure orders and consult orders; where the start date of the order is 45 days before the date of the Encounter or 45 days after the date of theEncounter. The data comes from all [place] treatment facilities. Test Date/Time Test Type Test Details Facility Name Oct 21, 2023 12:00 AM Laboratory - Chemi stry Order CBC AND DIFF (AUTO) BLOOD (LAV-BLOOD) [facility] Encounter Notes: All associated encounter notes This section contains the clinical notes associated to the Encounter. Date/Time Encounter Note(s) Provider Source Sep 20, 2023 12:10 PM ADMINISTRATIVE NOT E: LOCAL TITLE: ADMINISTRATIVE NOTE STANDARD TITLE: ADMINISTRATIVE NOTE DATE OF NOTE: SEP 20, 2023@12:10 ENTRY DATE: SEP 20, 2023@12:10:31 AUTHOR: RONEN BARROW EXP COSIGNER: URGENCY: STATUS: COMPLETED Douglas is scheduled for a 6mth office visit 09/22/2023 @ 12:00, current consult has , please enter a new consult if acceptable [facility] [address] [place] [address], [address] [place], [place] PH: [phone] FX: [phone] TAX ID [id number] office visit 09/21/2020 @ 12:00 /lili/ RONEN BARROW Signed: 09/20/2023 12:11 Receipt Acknowledged By: 12/08/2023 18:41 /es/ BALTA MICHEL MD PHYSICIAN 09/21/2023 12:06 /es/ MAYDA GALLEGOS LPN LPN 09/20/2023 20:31 /es/ VONDA DOVE MESSENGER FLOORPERSON 09/20/2023 17:30 /es/ DESIREE HAWKINS,RN-BC REGISTERED NURSE (RN) RONEN BARROW [facility]
--- OUTSIDE RECORDS SUMMARY | 2024-03-23 01:14 | XMS_ITS | Encounter Summary ---
Author Name [facility] [place] Address [address] [place] [address] Care Team Providers Care Diamond Polisher Name Role Phone BALTA MICHEL Primary Care [...] O MEDEX BRONZ E Apr 12, 2014 [id number] WILUSZ, [place] PAT[place] MED[place] SUPPLEMEN KATHRYN MEDEX BRONZ E Mar 12, 2013 [id number] WILZ,TH [place] PATIENT [place] MED[place] SUPPLEMEN KATHRYN MEDEX BRONZ E Mar 12, 2013 [id number] WILLOREN,TH OMAS PATIENT MEDICARE (WNR) MEDICARE (M) PART A Feb 10, 2013 PART A [id number] TX12 [phone] BENITO CARSON PATIENT MEDICARE (WNR) MEDICARE (M) PART B Feb 10, 2013 PART B [id number] TX12 BENITO CARSON PATIENT MEDICARE (WNR) MEDICARE (M) PART A Feb 10, 2013 PART A [id number] TX12 [phone] BENITO CARSON PATIENT MEDICARE (WNR) MEDICARE (M) PART B Feb 10, 2013 PART B [id number] TX12 BENITO CARSON PATIENT Selected Encounter This section includes the information on record at [place] for the Encounter. Date/Time Encounter Type Encounter Description Reason Provider Source Sep 16, 2023 11:00 AM PSYTX W PT 60 [facility]UTES [facility] - IND ICD-10-CM F43.12 Post-traumatic stress disorder, chronic SHANELL SMITH Mike Encounter Template Text not used by [place] Assessments - Encounter Diagnoses This section includes the primary and secondary diagnoses documented for the Encounter. Date/Time Primary/Secondary Diagnosis Diagnosis Name Provider Source Sep 16, 2023 12:27 PM PRIMARY Post-traumatic stress disorder, chronic SHANELL SMITH Sep 16, 2023 12:27 PM SECONDARY Major depressv disorder, single episode, in partial remis SHANELL SMITH Plan of Treatment: Future Appointments (+ 6 months) and Future Tests (+/- 45 days) The Plan of Treatment section includes future care activities for the patient from all [place] treatmentfacilities. This section includes future appointments and future orders which are active, pending or scheduled. Future Appointments This section includes appointments that were scheduled to occur 6 months from the date of the Encounter, up to a maximum of 20 appointments. The data comes from all [place] treatment facilities. Appointment Date/Time Appointment Type Appointme nt Facility Name Sep 22, 2023 12:00 PM AMBULATORY - MEDICINE [place] [facility] Oct 28, 2023 11:00 AM AMBULATORY - PSYCHIATRY [facility] Nov 01, 2023 11:00 AM AMBULATORY - MEDICINE [place] [facility] Dec 02, 2023 11:00 AM AMBULATORY - NONE [place] [facility] Dec 09, 2023 11:00 AM AMBULATORY - PSYCHIATRY [facility] Dec 21, 2023 10:00 AM AMBULATORY - MEDICINE [facility] ([facility] Dec 28, 2023 10:00 AM AMBULATORY - MEDICINE [facility] ([facility] Jan 04, 2024 10:00 [facility] Jan 06, 2024 11:00 AM AMBULATORY - PSYCHIATRY [facility] Jan 11, 2024 10:00 AM [facility] Feb 10, 2024 11:00 AM AMBULATORY - PSYCHIATRY [facility] Mar 16, 2024 10:00 AM AMBULATORY - PSYCHIATRY [facility] Active, Pending, and Scheduled Orders This section includes a listing of several types of active, pending, and scheduled orders, including clinic medications orders, diagnostic test orders, procedure orders and consult orders; where the start date of the order is 45 days before the date of the Encounter or 45 days after the date of theEncounter. The data comes from all [place] treatment facilities. Test Date/Time Test Type Test Details Facility Name Aug 02, 2023 12:00 AM Laboratory - Chemi stry Order FERRITIN BLOOD (SST-SERUM) [facility] Aug 02, 2023 12:00 AM Laboratory - Chemi stry Order CBC AND DIFF (AUTO) BLOOD (LAV[facility]BLOOD) [facility] Aug 02, 2023 12:00 AM Laboratory - Chemi stry Order FOLATE BLOOD (SST-SERUM) [facility] Aug 02, 2023 12:00 AM Laboratory - Chemi stry Order IRON & TIBC PANEL BLOOD (SST-SERUM) [facility] Aug 02, 2023 12:00 AM Laboratory - Chemi stry Order VITAMIN B12 [facility]LOOD ([facility] Oct 21, 2023 12:00 AM Laboratory - Chemi stry Order CBC AND DIFF (AUTO) [facility]LOOD ([facility]BLOOD[facility] Social History: Smoking Status (Most current) and Tobacco Use (All prior to encounter date) This section includes the most current, and the historical, smoking and tobacco- related health factors from the [place] facility where the Encounter took place. Current Smoking Status This section includes the most current smoking, or tobacco-related health factor, from the [place] facility where the Encounter took place. Date/Time Current Smoking Status Comment Gonzalo ity Sep 29, 2022 10:30 AM VA-TOBACCO FORMER USER [place] Tobacco Use History This section includes a history of the smoking, or tobacco-related health factors, that were collected on or before the date of the Encounter. The data comes from the [place] facility where the Encounter took place. Date/Time Smoking Status/Tobacco Use Comment F acility Sep 29, 2022 10:30 AM VA-TOBACCO QUIT 15 YRS OR MORE [place] Jan 21, 2021 09:00 AM VA-TOBACCO NEVER USED [place] Feb 14, 2020 01:00 PM VA-TOBACCO FORMER USER [place] Feb 14, 2020 01:00 PM VA-TOBACCO QUIT 15 YRS OR MORE [place] Jul 05, 2018 03:54 PM VA-TOBACCO FORMER USER [place] Jul 05, 2018 03:54 PM VA-TOBACCO QUIT 15 YRS OR MORE [place] May 19, 2017 01:01 PM QUIT TOBACCO USE > 7 YEARS AGO [place] Apr 29, 2016 12:14 PM QUIT TOBACCO USE > 7 YEARS AGO Quit 20 years ago [place] Mar 21, 2015 02:25 PM QUIT TOBACCO USE > 7 YEARS AGO [place] May 03, 2012 12:04 PM QUIT TOBACCO USE > 7 YEARS AGO [place] Radiology Reports: +/- 30 days of the [...] the Encounter. The data comes from all [place] treatment facilities. Date/Time Radiology Report Provider Source August 18, 2023 02:36 PM HAND3 OR MORE VIEWS(RIGHT): PETTY CARSON [id number] -[id number] M Exm Date: AUGUST 18, 2023@14:36 Req Phys: YANETH MAJANO Loc: CWM/SO/SICK CALL OUTSOLE SCHEDULER (Req'g Loc Img Loc: [facility]/BUILDING 1 Service: Unknown [facility] , (Case [id number] COMPLETE) HAND3 OR MORE VIEWS(RIGHT) (RAD Detailed) CPT:06819 Reason for Study: pain and swelling right hand along thumb Clinical History: Covering resident, fellow, OUTSOLE SCHEDULER or attending: Yaneth majano NP [place] Pager: [phone] Backup pager: History: no injury or trauma Report Status: Verified Date Reported: AUGUST 18, 2023 Date Verified: AUGUST 18, 2023 Heater Engineer Helper E-Sig:/ES/MOLLY LOCKWOOD JR Report: Study: AP, lateral, [...] Primary Interpreting Staff: MOLLY LOCKWOOD JR, Radiologist (Heater Engineer Helper) /EAMOLLY PARKINSON JR [facility] August 18, 2023 02:36 PM FOOT 3 OR MORE VIEWS (RIGHT): PETTY CARSON [id number] -[id number] M Ex Date: AUGUST 18, 2023@14:36 Req Phys: YANETH MAJANO Pat Loc: CWM/SO/SICK CALL OUTSOLE SCHEDULER (Req'g Loc Img Loc: [facility] 1 Service: Unknown [facility] , (Case [id number] COMPLETE) FOOT 3 OR MORE VIEWS (RIGHT) (RAD Detailed) CPT:43311 CPT Modifiers : RT RIGHT SIDE Reason for Study: pain and swelling right foot along great toe Clinical History: Covering resident, fellow, OUTSOLE SCHEDULER or attending: Yaneth Majano NP [place] Pager: [phone] Backup pager: History: no injury or trauma Report Status: Verified Date Reported: AUGUST 18, 2023 Date Verified: AUGUST 18, 2023 Heater Engineer Helper E-Sig:/ES/MOLLY LOCKWOOD JR Report: Study: Weight-bearing AP, [...] Primary Interpreting Staff: MOLLY LOCKWOOD JR, Radiologist (Heater Engineer Helper) /MOLLY BLAS JR [place] [facility] [facility] Encounter Notes: All associated encounter notes This section contains the clinical notes associated to the Encounter. Date/Time Encounter Note(s) Provider Source Sep 16, 2023 11:00 AM SOCIAL WORK NOTE: LOCAL TITLE: SOCIAL WORK NOTE STANDARD TITLE: SOCIAL WORK NOTE DATE OF NOTE: SEP 16, 2023@11:00 ENTRY DATE: SEP 16, 2023@12:20:55 AUTHOR: SHANELL SMITH EXP COSIGNER: URGENCY: STATUS: COMPLETED INFORMED CONSENT REVIEWED: At beginning of session reviewed rights and limits of confidentiality, mandatory reporting situations, duty to warn and protect, Ejsus Warning, (if treatment team finds patient to be an acute danger to himself or others, that this information could be relayed to a court of law and presented to a housing court judge), and DOD access for active duty service members. Provided Suicide Prevention Hotline number, and other contact numbers as necessary. 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 SESSION FOCUS: Met with face to face for individual counseling. shared the process of him taking care of his dog and ultimately deciding to euthanize her. He stated it was a very painful decision but he knew she would not get better and did not want to see her in pain and decline. He had it done last Wednesday and brought her home and buried her in the back yard immediately. He is very sad and was emotional through our session. He stated he has been through this before but it is no less painful. stated he did get two kittens before his dog declined so he is entertained by them. 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 [place] stated when he is busy he forgets. Encouraged him to allow his feelings to arise when they do and not to supress. He agreed. He has friends and family that are supportive. INTERVENTIONS: Psychotherapeutic Interventions: [place]; Reflective listening and support ASSESSMENT: BRIEF ASSESSMENT [...] PLAN FOR FOLLOW-UP: Next session planned for: 10/28/23 at 11am /lili/ LUCY FORREST Certified Pathology Assistant Mental Health Signed: 09/16/2023 12:28 SHANELL SMITH
--- OUTSIDE RECORDS SUMMARY | 2024-03-23 01:14 | XMS_ITS | Encounter Summary ---
Author Name [facility] [place] Address [address] [place] [address] Care Team Providers Care Charter And Tour Bus Driver Name Role Phone BALTA MICHEL Primary Care [...] O MEDEX BRONZ E Apr 12, 2014 [id number] LOREN, OM[place] PATIENT [place] MEDICARE SUPPLEMEN KATHRYN MEDEX BRONZ E Mar 12, 2013 [id number] ALLI, [place] SUPP[place] KATHRYN MEDEX BRONZ E Mar 12, 2013 [id number] ALLI,BENITO OMAS PATIENT MEDICARE (WNR) MEDICARE (M) PART A Feb 10, 2013 PART A [id number] TX12 BENITO CARSON PATIENT MEDICARE (WNR) MEDICARE (M) PART B Feb 10, 2013 PART B [id number] TX12 BENITO CARSON PATIENT MEDICARE (WNR) MEDICARE (M) PART A Feb 10, 2013 PART A [id number] TX12 BENITO CARSON PATIENT MEDICARE (WNR) MEDICARE (M) PART B Feb 10, 2013 PART B [id number] TX12 BENITO CARSON PATIENT Selected Encounter This section includes the information on record at [place] for the Encounter. Date/Time Encounter Type Encounter Description Reason Pro vider Source Sep 22, 2023 12:55 PM Outpatient Encounter PRIMARY CARE/MEDICINE IHE Encounter [...] Date/Time Appointment Type Appointme nt Facility Name Oct 28, 2023 11:00 AM AMBULATORY - PSYCHIATRY [facility] Nov 01, 2023 11:00 AM AMBULATORY - MEDICINE [place] [facility] Dec 02, 2023 11:00 AM AMBULATORY - NONE [place] [facility] Dec 09, 2023 11:00 AM AMBULATORY - PSYCHIATRY [facility] Dec 21, 2023 10:00 AM [facility] [place] [facility] [facility] Dec 28, 2023 10:00 AM AM[facility]ULAT[facility] Jan 04, 2024 10:00 AM AMBULATORY - NONE [place] [facility] Jan 06, 2024 11:00 AM AMBULATORY - PSYCHIATRY [facility] Jan 11, 2024 10:00 AM AMBULATORY - NONE [place] [facility] Feb 10, 2024 11:00 AM AMBULATORY - PSYCHIATRY [facility] Mar 16, 2024 10:00 AM AMBULATORY - PSYCHIATRY [facility] Active, Pending, and Scheduled Orders This section includes a listing of several types of active, pending, and scheduled orders, including clinic medications orders, diagnostic test orders, procedure orders and consult orders; where the start date of the order is 45 days before the date of the Encounter or 45 days after the date of theEncounter. The data comes from all [place] treatment facilities. Test Date/Time Test Type Test Details Facility Name Oct 21, 2023 12:00 AM Laboratory - Chemi stry Order CBC AND DIFF (AUTO) BLOOD (LAV-BLOOD) [facility] [place] [facility] Encounter Notes: All associated encounter notes This section contains the clinical notes associated to the Encounter. Date/Time Encounter Note(s) Provider Source Sep 22, 2023 12:55 PM PRIMARY CARE NOTE: LOCAL TITLE: WALK-IN NOTE PRIMARY CARE (T) STANDARD TITLE: PRIMARY CARE NOTE DATE OF NOTE: SEP 22, 2023@12:55 ENTRY DATE: SEP 22, 2023@12:55:20 AUTHOR: HARRISON MALHOTRA COSIGNER: URGENCY: STATUS: COMPLETED WALK-IN NOTE PRIMARY CARE (T) Has ADDENDA <====Click to Start Advanced Medical Support presents to the Primary Care clinic with the following request: [ X ]Medication Renewal/Refill [ ]Consultation with Team RN [ ]Symptoms [ ]Other The [place] states they are: [ ]Waiting [ X ]Not Waiting No Walk in visit scheduled with PACT Nurse [ X ] At this encounter the [place]'s demographics were verified. [ X ] At this encounter the [place]'s Insurance information was verified. [ X ] At this encounter the below scheduled visits for the [place] were discussed and appointment reminder card was offered. Future appointments: 10/28/2023 11:00 CWM/SO/MHC/LUIS 11/01/2023 11:00 CWM/SO/PACT 9 ALIROCUMAB (PRALUENT) PA-F INJ,SOLN 75MG/ML Vet requesting renewal of medication. Would like to pick it up if he can't please mail. Also vet would like to note he has had low BP this morning 106/59 reading. And is concerned about weight loss. Sick call was offered vet declined and states he will wait to see PCP on 11/01/23. /lili/ HARRISON NAVARRO Signed: 09/22/2023 13:00 Receipt Acknowledged By: 09/23/2023 11:23 /es/ MAYDA GALLEGOS LPN LPN 09/22/2023 13:22 /lili/ DESIREE HAWKINS,RN-BC REGISTERED NURSE (RN) 09/22/2023 ADDENDUM STATUS: COMPLETED Sewer Digger called and requested him to call his GI provider to discuss weight loss and diarrhea. Regarding low blood pressure this was an isolated event. states he is asymptomatic. Sewer Digger requested to monitor bp daily and if blood pressure is consistently low or he experience confusion, dizziness, palpitation, fatigue to call [facility] for further advise. [place] was also encouraged to drink a glass of water to help blood pressure elevate. [place] verbalized understanding and agreed to plan. /lili/ DESIREE HAWKINS,RN-BC REGISTERED NURSE (RN) Signed: 09/22/2023 14:26 HARRISON MALHOTRAFIELD
--- OUTSIDE RECORDS SUMMARY | 2024-03-23 01:14 | XMS_ITS ---
Author Name [facility] [place] Address [address] [place] [address] Care Team Providers Care Doctor Of Naprapathy Name Role Phone BALTA MICHEL Primary Care [...] O MEDEX BRONZ E Apr 12, 2014 [id number] WILLOREN, OMAS PATIENT BCBS CT MEDICARE SUPPLEMEN KATHRYN MEDEX BRONZ E Mar 12, 2013 [id number] WILLOREN, OMAS PATIENT BCBS CT MEDICARE SUPPLEMEN KATHRYN MEDEX BRONZ E Mar 12, 2013 [id number] ALLI,BENITO OMAS PATIENT MEDICARE (WNR) MEDICARE (M) PART B Feb 10, 2013 PART B [id number] [id number] BENITO CARSON PATIENT MEDICARE (WNR) MEDICARE (M) PART A Feb 10, 2013 PART A [id number] [id number] BENITO CARSON PATIENT MEDICARE (WNR) MEDICARE (M) PART A Feb 10, 2013 PART A [id number] TX12 [phone] BENITO CARSON PATIENT MEDICARE (WNR) MEDICARE (M) PART B Feb 10, 2013 PART B [id number] TX12 [phone] BENITO CARSON PATIENT Selected Encounter This section includes the information on record at [place] for the Encounter. Date/Time Encounter Type Encounter Description Reason Pro vider Source Sep 20, 2023 07:19 AM Outpatient Encounter PRIMARY CARE/MEDICINE IHE Encounter Template Text not used by CT Plan of Treatment: Future Appointments (+ 6 months) and Future Tests (+/- 45 days) The Plan of Treatment section includes future care activities for the patient from all [place] treatmentfacilities. This section includes future appointments and future orders which are active, pending or scheduled. Future Appointments This section includes appointments that were scheduled to occur 6 months from the date of the Encounter, up to a maximum of 20 appointments. The data comes from all [place] treatment facilities. Appointment Date/Time Appointment Type Appointme nt Facility Name Sep 22, 2023 12:00 PM AMBULATORY - MEDICINE [facility] [place] [facility] Oct 28, 2023 11:00 AM AMBULATORY - PSYCHIATRY [facility] Nov 01, 2023 11:00 AM AMBULATORY - MEDICINE [facility] [place] [facility] Dec 02, 2023 11:00 AM AMBULATORY - NONE [place]TR [place] [facility] Dec 09, 2023 11:00 AM AMBULATORY - PSYCHIATRY [facility] Dec 21, 2023 10:00 AM AMBULATORY - MEDICINE [facility] (6[facility]) Dec 28, 2023 10:00 AM AMBULATORY - MEDICINE [facility] (6[facility]) Jan 04, 2024 10:00 AM AMBULATORY - NONE [place] CNTR [place] [facility] Jan 06, 2024 11:00 AM AMBULATORY - PSYCHIATRY [facility] Jan 11, 2024 10:00 AM AMBULATORY - NONE [facility] Feb 10, 2024 11:00 AM AMBULATORY - PSYCHIATRY [facility] Mar 16, 2024 10:00 AM AMBULATORY - PSYCHIATRY [facility] Active, Pending, and Scheduled Orders This section includes a listing of several types of active, pending, and scheduled orders, including clinic medications orders, diagnostic test orders, procedure orders and consult orders; where the start date of the order is 45 days before the date of the Encounter or 45 days after the date of theEncounter. The data comes from all [place] treatment facilities. Test Date/Time Test Type Test Details Facility Name Oct 21, 2023 12:00 AM Laboratory - Chemi stry Order CBC AND DIFF (AUTO) BLOOD (LAV-BLOOD) [facility] Encounter Notes: All associated encounter notes This section contains the clinical notes associated to the Encounter. Date/Time Encounter Note(s) Provider Source Sep 20, 2023 07:19 AM PRIMARY CARE [employer] MESSAGING: LOCAL TITLE: PRIMARY CARE SECURE MESSAGING STANDARD TITLE: PRIMARY CARE SECURE MESSAGING DATE OF NOTE: SEP 20, 2023@07:19 ENTRY DATE: SEP 20, 2023@08:19:08 AUTHOR: MAYA MUÑOZ EXP COSIGNER: URGENCY: STATUS: COMPLETED ------Original Message ----- Sent: 09/19/2023 07:57 AM ET From: PETTY CARSON To: Kilo MICHEL_PRIMARY CARE_SPOPC Subject: Test:refill Rapatha I am not able to refill my ALIROCUMAB 75MG/ML INJ 1ML PEN, because of expiration date. There were 2 refills remaining on original Rx. Please refill /lili/ MAYA NAVARRO Signed: 09/20/2023 08:19 Receipt Acknowledged By: 09/20/2023 11:59 /es/ MAYDA GALLEGOS LPN LPN 09/20/2023 09:39 /es/ DESIREE HAWKINS,RN-BC REGISTERED NURSE (RN) MAYA MUÑOZ [facility]
--- OUTSIDE RECORDS SUMMARY | 2024-03-23 01:14 | XMS_ITS | Encounter Summary ---
Author Name [place] Address [address] [place] [address] Care Team Providers Care Sas Programmer Name Role Phone BALTA MICHEL Primary Care [...] O MEDEX BRONZ E Apr 12, 2014 [id number] WILL[place]EN, [place] SU[place] KATHRYN MEDEX BRONZ E Mar 12, 2013 [id number] [place], [place] KATHRYN MEDEX BRONZ E Mar 12, 2013 [id number] [phone] WILLOREN,TH OMAS PATIENT MEDICARE (WNR) MEDICARE (M) PART B Feb 10, 2013 PART B [id number] [id number] BENITO CARSON PATIENT MEDICARE (WNR) MEDICARE (M) PART A Feb 10, 2013 PART A [id number] TX12 BENITO CARSON PATIENT MEDICARE (WNR) MEDICARE (M) PART A Feb 10, 2013 PART A [id number] TX12 [phone] BENITO CARSON PATIENT MEDICARE (WNR) MEDICARE (M) PART B Feb 10, 2013 PART B [id number] TX12 BENITO CARSON PATIENT Selected Encounter This section includes the information on record at [place] for the Encounter. Date/Time Encounter Type Encounter Description Reason Pro vider Source Sep 22, 2023 12:00 AM Outpatient Encounter COMMUNITY CARE [...] 28, 2023 11:00 AM AMBULATORY - PSYCHIATRY [facility] Nov 01, 2023 11:00 AM AMBULATORY - [place]ICINE [place] [facility] Dec 02, 2023 11:00 AM AMBULATORY - NONE [place] [facility] Dec 09, 2023 11:00 AM AMBULATORY - PSYCHIATRY [facility] Dec 21, 2023 10:00 AM AMBULATORY - MEDICINE [facility] ([facility] Dec 28, 2023 10:00 AM AMBULATORY - MEDICINE [facility] (6[facility]) Jan 04, 2024 10:00 AM AMBULATORY - NONE [place] [facility] Jan 06, 2024 11:00 AM AMBULATORY - PSYCHIATRY [facility] Jan 11, 2024 10:00 AM AMBULATORY - NONE [place] [facility] Feb 10, 2024 11:00 AM AMBULATORY - PSYCHIATRY [facility] [place] Mar 16, 2024 10:00 AM AMBULATORY - PSYCHIATRY [facility] Active, Pending, and Scheduled Orders This section includes a listing of several types of active, pending, and scheduled orders, including clinic medications orders, diagnostic test orders, procedure orders and consult orders; where the start date of the order is 45 days before the date of the Encounter or 45 days after the date of theEncounter. The data comes from all [place] treatment facilities. Test Date/Time Test Type Test Details Facility Name Oct 21, 2023 12:00 AM Laboratory - Chemi stry Order CBC AND DIFF (AUTO) BLOOD (LAV-BLOOD) [facility] Encounter Notes: All associated encounter notes This section contains the clinical notes associated to the Encounter. Date/Time Encounter Note(s) Provider Source Sep 22, 2023 12:00 AM NONVA CONSULT: LOCAL TITLE: COMMUNITY CARE-CONSULT RESULT NOTE STANDARD TITLE: NONVA CONSULT DATE OF NOTE: SEP 22, 2023 ENTRY DATE: OCT 19, 2023@11:08:05 AUTHOR: KATHERIN SAMUEL EXP COSIGNER: URGENCY: STATUS: COMPLETED VistA Imaging - Scanned Document SCANNED DOCUMENT SIGNATURE NOT REQUIRED Electronically Filed: 10/19/2023 by: KATHERIN GRAVES [facility]
--- OUTSIDE RECORDS SUMMARY | 2024-03-23 01:14 | XMS_ITS | Encounter Summary ---
Author Name [facility] [facility] [place] Organization [facility] [place] Address [address] [place] [address] Care Team Providers Care Mold Shop Supervisor Name Role Phone BALTA MICHEL Primary [...] O MEDEX BRONZ E Apr 12, 2014 [id number] [phone] LOREN, OMAS PATIENT [place] MED[place] SUPPLEMEN KATHRYN MEDEX BRONZ E Mar 12, 2013 [id number] ALLI, OM[place] PAT[place] SUPPLE[place] KATHRYN MEDEX BRONZ E Mar 12, 2013 [id number] ALLI,BENITO OMAS PATIENT MEDICARE (WNR) MEDICARE (M) PART A Feb 10, 2013 PART A [id number] TX12 BENITO CARSON PATIENT MEDICARE (WNR) MEDICARE (M) PART B Feb 10, 2013 PART B [id number] TX12 BENITO CARSON PATIENT MEDICARE (WNR) MEDICARE (M) PART A Feb 10, 2013 PART A [id number] TX12 BENITO CARSON PATIENT MEDICARE (WNR) MEDICARE (M) PART B Feb 10, 2013 PART B [id number] TX12 [phone] BENITO CARSON PATIENT Selected Encounter This section includes the information on record at [place] for the Encounter. Date/Time Encounter Type Encounter Description Reason Pro vider Source Aug 09, 2023 03:22 PM Outpatient Encounter PRIMARY CARE/MEDICINE IHE Encounter Template Text not used by [place] Plan of Treatment: Future Appointments (+ 6 months) and Future Tests (+/- 45 days) The Plan of Treatment section includes future care activities for the patient from all [place] treatmentfacilities. This section includes future appointments and future orders which are active, pending or scheduled. Future Appointments This section includes appointments that were scheduled to occur 6 months from the date of the Encounter, up to a maximum of 20 appointments. The data comes from all [place] treatment facilities. Appointment Date/Time Appointment Type Appointme nt Facility Name August 12, 2023 11:00 AM AMBULATORY - PSYCHIATRY [facility] August 18, 2023 11:15 AM AMBULATORY - MEDICINE [facility] August 18, 2023 11:30 AM AMBULATORY - MEDICINE [facility] Sep 16, 2023 11:00 AM AMBULATORY - PSYCHIATRY [facility] Sep 22, 2023 12:00 PM AMBULATORY - MEDICINE [place] [facility] Oct 28, 2023 11:00 AM AMBULATORY - PSYCHIATRY [facility] Nov 01, 2023 11:00 AM AMBULATORY - MEDICINE [place] [facility] Dec 02, 2023 11:00 AM AMBULATORY - NONE [place] [facility] [facility] Dec 09, 2023 11:00 AM AMBULATORY - PSYCHIATRY [facility] Dec 21, 2023 10:00 AM [id number] Dec 28, 2023 10:00 AM [facility] Jan 04, 2024 10:00 AM AMBULATORY - NONE [facility] Jan 06, 2024 11:00 AM AMBULATORY - PSYCHIATRY [facility] Jan 11, 2024 10:00 AM AMBULATORY - NONE [facility] Active, Pending, and Scheduled Orders This section includes a listing of several types of active, pending, and scheduled orders, including clinic medications orders, diagnostic test orders, procedure orders and consult orders; where the start date of the order is 45 days before the date of the Encounter or 45 days after the date of theEncounter. The data comes from all [facility]. Test Date/Time Test Type Test Details Facility Name Aug 02, 2023 12:00 AM Laboratory - Chemi stry Order FERRITIN BLOOD (SST-SERUM) [facility] Aug 02, 2023 12:00 AM Laboratory - Chemi stry Order CBC AND DIFF (AUTO) BLOOD (LAV-BLOOD) [facility] Aug 02, 2023 12:00 AM Laboratory - Chemi stry Order FOLATE BLOOD (SST-SERUM) [facility] Aug 02, 2023 12:00 AM Laboratory - Chemi stry Order IRON & TIBC PANEL BLOOD (SST-SERUM) [facility] Aug 02, 2023 12:00 AM Laboratory - Chemi stry Order VITAMIN B12 BLOOD (SST-SERUM) [facility] Radiology Reports: +/- 30 days of the [...] the Encounter. The data comes from all [facility]. 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 (Req'g Loc Img Loc: [facility] 1 Service: Unknown [facility] , (Case 340 COMPLETE) HAND3 OR MORE VIEWS(RIGHT) (RAD Detailed) CPT:39887 Reason for Study: pain and swelling right hand along thumb Clinical History: Covering resident, fellow, GARBAGE COLLECTOR DRIVER or attending: Yaneth majano NP [place] Pager: [phone] Backup pager: History: no injury or trauma Report Status: Verified Date Reported: AUGUST 18, 2023 Date Verified: AUGUST 18, 2023 Unit [employer] E-Sig:/ES/MOLLY LOCKWOOD JR Report: Study: AP, lateral, [...] Primary Interpreting Staff: MOLLY LOCKWOOD JR, Radiologist (Unit [employer]) /MOLLY BLAS JR [facility] August 18, 2023 02:36 PM FOOT 3 OR MORE VIEWS (RIGHT): WAYNEOrestesPETTY [id number] -1950 M Exm Date: AUGUST 18, 2023@14:36 Req Phys: YANETH MAJANO Pat 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: 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 (Req'g Loc Img Loc: [facility] 1 Service: Unknown [facility] , (Case 342 COMPLETE) FOOT 3 OR MORE VIEWS (RIGHT) (RAD Detailed) CPT:71599 CPT Modifiers : RT RIGHT SIDE Reason for Study: pain and swelling right foot along great toe Clinical History: Covering resident, fellow, 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 Date/Time Encounter Note(s) Provider Source Aug 09, 2023 03:22 PM MEDICATION MGT NOT E: LOCAL TITLE: OUTPATIENT MEDICATION REQUEST STANDARD TITLE: MEDICATION MGT NOTE DATE OF NOTE: AUG 09, 2023@15:22 ENTRY DATE: AUG 09, 2023@15:22:59 AUTHOR: MIGUEL HEAD EXP COSIGNER: URGENCY: STATUS: COMPLETED Mail DICLOFENAC NA TAB,EC 50MG TAKE ONE TABLET BY MOUTH TWICE DAILY NEEDED FOR PAIN/INFLAMMATION /lili/ DESIREE HAWKINS,RN-BC REGISTERED NURSE (RN) Signed: 08/09/2023 15:23 Receipt Acknowledged By: 08/23/2023 09:31 /lili/ BALTA MICHEL MD PHYSICIAN MIGUEL HEAD [place]
--- OUTSIDE RECORDS SUMMARY | 2024-03-23 01:14 | XMS_ITS | Encounter Summary ---
Author Name [facility] [place] [facility] [place] [facility] [place] Address [address] [place] [address] Care Team Providers Care Consulting Services Associate Name Role Phone BALTA MICHEL Primary [...] O MEDEX BRONZ E Apr 12, 2014 [id number] [phone] WILLOREN, OMAS PATIENT [place] MED[place] SUPPLEMEN KATHRYN MEDEX BRONZ E Mar 12, 2013 [id number] [phone] ALLI, OMAS PATIENT [place] MED[place] SUPPLEMEN KATHRYN MEDEX BRONZ E Mar 12, 2013 [id number] ALLI,BENITO OMAS PATIENT MEDICARE (WNR) MEDICARE (M) PART A Feb 10, 2013 PART A [id number] TX12 BENITO CARSON PATIENT MEDICARE (WNR) MEDICARE (M) PART B Feb 10, 2013 PART B [id number] TX12 BENITO CARSON PATIENT MEDICARE (WNR) MEDICARE (M) PART A Feb 10, 2013 PART A [id number] TX12 [phone] BENITO CARSON PATIENT MEDICARE (WNR) MEDICARE (M) PART B Feb 10, 2013 PART B [id number] TX12 [phone] BENITO CARSON PATIENT Selected Encounter This section includes the information on record at [place] for the Encounter. Date/Time Encounter Type Encounter Description Reason Provider Source August 18, 2023 11:15 AM OFF/OP EST AUGUST X REQ PHY/QHP PRIMARY CARE/MEDICINE ICD-10-CM M79.644 Pain in right finger(s) EYAL TRINIDAD [facility] Encounter Template Text not used by [place] Assessments - Encounter Diagnoses This section includes the primary and secondary diagnoses documented for the Encounter. Date/Time Primary/Secondary Diagnosis Diagnosis Name Provider Source Sep 11, 2023 01:49 PM PRIMARY Pain in right finger(s) EYAL TRINIDAD [place] Plan of Treatment: Future Appointments (+ 6 months) and Future Tests (+/- 45 days) The Plan of Treatment section includes future care activities for the patient from all [place] treatmentfacilities. This section includes future appointments and future orders which are active, pending or scheduled. Future Appointments This section includes appointments that were scheduled to occur 6 months from the date of the Encounter, up to a maximum of 20 appointments. The data comes from all [place] treatment facilities. Appointment Date/Time Appointment Type Appointme nt Facility Name Sep 16, 2023 11:00 AM AMBULATORY - PSYCHIATRY [facility] Sep 22, 2023 12:00 PM AMBULATORY - MEDICINE [facility] [place] [facility] Oct 28, 2023 11:00 AM AMBULATORY - PSYCHIATRY [facility] Nov 01, 2023 11:00 AM AMBULATORY - MEDICINE [place] [facility] Dec 02, 2023 11:00 AM AMBULATORY - NONE [place] [facility] Dec 09, 2023 11:00 AM AMBULATORY - PSYCHIATRY [facility] Dec 21, 2023 10:00 AM AMBULATORY - MEDICINE [facility] ([facility] Dec 28, 2023 10:00 AM AMBULATORY - MEDICINE [facility] ([facility] Jan 04, 2024 10:00 AM [facility]ONE [facility] Jan 06, 2024 11:00 AM AMBULATORY - PSYCHIATRY [facility] Jan 11, 2024 10:00 AM AMBULATORY - NONE [facility] Feb 10, 2024 11:00 AM AMBULATORY - PSYCHIATRY [facility] Active, Pending, and Scheduled Orders This section includes a listing of several types of active, pending, and scheduled orders, including clinic medications orders, diagnostic test orders, procedure orders and consult orders; where the start date of the order is 45 days before the date of the Encounter or 45 days after the date of theEncounter. The data comes from all [facility]. Test Date/Time Test Type Test Details Facility Name Aug 02, 2023 12:00 AM Laboratory - Chemi stry Order FERRITIN BLOOD (SST-SERUM) [facility] Aug 02, 2023 12:00 AM Laboratory - Chemi stry Order CBC AND DIFF (AUTO) BLOOD (LAV-BLOOD) [facility] Aug 02, 2023 12:00 AM Laboratory - Chemi stry Order FOLATE BLOOD (SST-SERUM) [facility] Aug 02, 2023 12:00 AM Laboratory - Chemi stry Order IRON & TIBC PANEL BLOOD (SST-SERUM) [facility] Aug 02, 2023 12:00 AM Laboratory - Chemi stry Order VITAMIN B12 BLOOD (SST-SERUM) [facility] Vital Signs: All taken on the encounter date This section contains inpatient and outpatient Vital Signs collected on the date of the Encounter. Date/Time Temperature Pulse Blood Pressure Respiratory Rate SP02 Pain Height Weight Body Mass Index Source August 18, 2023 11:48 AM 97.8 66 113/68 95 [place] Social History: Smoking Status (Most current) and Tobacco Use (All prior to encounter date) This section includes the most current, and the historical, smoking and tobacco- related health factors from the [place] facility where the Encounter took place. Current Smoking Status This section includes the most current smoking, or tobacco-related health factor, from the [place] facility where the Encounter took place. Date/Time Current Smoking Status Comment Gonzalo ity Sep 29, 2022 10:30 AM VA-TOBACCO FORMER USER [place] Tobacco Use History This section includes a history of the smoking, or tobacco-related health factors, that were collected on or before the date of the Encounter. The data comes from the [place] facility where the Encounter took place. Date/Time Smoking Status/Tobacco Use Comment F acility Sep 29, 2022 10:30 AM VA-TOBACCO QUIT 15 YRS OR MORE [facility] Jan 21, 2021 09:00 AM VA-TOBACCO NEVER USED [facility] Feb 14, 2020 01:00 PM VA-TOBACCO FORMER USER [place] Feb 14, 2020 01:00 PM VA-TOBACCO QUIT 15 YRS OR MORE [facility] Jul 05, 2018 03:54 PM VA-TOBACCO FORMER USER [place] Jul 05, 2018 03:54 PM VA-TOBACCO QUIT 15 YRS OR MORE [place] May 19, 2017 01:01 PM QUIT TOBACCO USE > 7 YEARS AGO [facility] Apr 29, 2016 12:14 PM QUIT TOBACCO USE > 7 YEARS AGO Quit 20 years ago [facility] Mar 21, 2015 02:25 PM QUIT TOBACCO USE > 7 YEARS AGO [facility] May 03, 2012 12:04 PM QUIT TOBACCO USE > 7 YEARS AGO [facility] Radiology Reports: +/- 30 days of the [...] the Encounter. The data comes from all [place] treatment facilities. Date/Time Radiology Report Provider Source August 18, 2023 02:36 PM HAND3 OR MORE VIEWS(RIGHT): ALLIPETTY VILLA [id number] -1950 M Exm Date: AUGUST 18, 2023@14:36 Req Phys: YANETH MAJANO Pat Loc: CWM/SO/SICK CALL LOADING MACHINE OPERATOR (Req'g Loc Img Loc: [facility] 1 [facility] , (Case 340 COMPLETE) HAND3 OR MORE VIEWS(RIGHT) (RAD Detailed) CPT:31666 Reason for Study: pain and swelling right hand along thumb Clinical History: Covering resident, fellow, LOADING MACHINE OPERATOR or attending: Yaneth majano NP [place] Pager: [phone] Backup pager: History: no injury or trauma Report Status: Verified Date Reported: AUGUST 18, 2023 Date Verified: AUGUST 18, 2023 Blow Down Helper E-Sig:/ES/MOLLY LOCKWOOD JR Report: Study: AP, [...] Primary Interpreting Staff: MOLLY LOCKWOOD JR, Radiologist (Blow Down Helper) /EAD MOLLY LOCKWOOD JR [facility] August 18, 2023 02:36 PM FOOT 3 OR MORE VIEWS (RIGHT): PETTY CARSON [id number] -1950 M Ex Date: AUGUST 18, 2023@14:36 Req Phys: YANETH MAJANO Loc: CWM/SO/SICK CALL LOADING MACHINE OPERATOR (Req'g Loc Img Loc: [facility] 1 [facility]: [facility] , (Case 342 COMPLETE) FOOT 3 OR MORE VIEWS (RIGHT) (RAD Detailed) CPT:88794 CPT Modifiers : RT RIGHT SIDE Reason for Study: pain and swelling right foot along great toe Clinical History: Covering resident, fellow, LOADING MACHINE OPERATOR or attending: Yaneth Majano NP [place] Pager: [phone] Backup pager: History: no injury or trauma Report Status: Verified Date Reported: AUGUST 18, 2023 Date Verified: AUGUST 18, 2023 Blow Down Helper E-Sig:/ES/MOLLY LOCKWOOD JR Report: Study: Weight-bearing [...] Primary Interpreting Staff: MOLLY LOCKWOOD JR, Radiologist (Blow Down Helper) /MOLLY BLAS JR [place] [facility] Encounter Notes: All associated encounter notes This section contains the clinical notes associated to the Encounter. Date/Time Encounter Note(s) Provider Source August 18, 2023 01:11 PM PRIMARY CARE NOTE: LOCAL TITLE: WALK-IN NOTE PRIMARY CARE (T) STANDARD TITLE: PRIMARY CARE NOTE DATE OF NOTE: AUGUST 18, 2023@13:11 ENTRY DATE: AUGUST 18, 2023@13:11:59 AUTHOR: STEPHANIA TRINIDAD EXP COSIGNER: URGENCY: STATUS: COMPLETED <====Click to Start Nurse Data: 73year old MALE reports to Primary Care clinic for Walk-In visit. [place] PCP is BALTA MICHEL. Today Vet walks in to clinic with complaint of Swollen/Painful wrist/fingers, and pain in right foot. Last recorded Vital Signs are: Temperature:97.8 F [36.6 C] (08/18/2023 11:48) Pulse:66 (08/18/2023 11:48) Blood Pressure:113/68 (08/18/2023 11:48) Respiration:15 (05/14/2023 09:47) Pain:0 (05/14/2023 09:47) Current Medications from Active Med list include: Active Outpatient Medications (including Supplies): Active Outpatient Medications Status ========= 1) ALIROCUMAB 75MG/ML INJ 1ML PEN INJECT [...] ONCE DAILY FOR HIGH BLOOD PRESSURE 5) HYDROPHILIC (EQV EUCERIN) TOP CREAM APPLY A LIBERAL ACTIVE AMOUNT TOPICALLY ONCE DAILY FOR DRY SKIN 6) LEVOTHYROXINE NA (SYNTHROID) 125MCG TAB TAKE ONE ACTIVE TABLET BY MOUTH EVERY MORNING 30 MINUTES BEFORE BREAKFAST FOR THYROID - TAKE ON AN EMPTY STOMACH WITH A FULL GLASS OF WATER 7) LISINOPRIL 10MG TAB TAKE ONE TABLET BY MOUTH ONCE ACTIVE DAILY TO CONTROL BLOOD PRESSURE 8) ROSUVASTATIN CA 40MG TAB TAKE ONE TABLET BY MOUTH ACTIVE ONCE DAILY FOR CHOLESTEROL Active Non-VA Medications Status ========= 1) Non-VA ASPIRIN 81MG EC TAB 81MG BY MOUTH DAILY ACTIVE 9 Total Medications Response: Patient reports the pain is localized in his index finger and is mostly felt when he tries to flex or extend it. Melecio Joyce NP saw and assessed patient. /lili/ STEPHANIA TRINIDAD RN REGISTERED NURSE Signed: 08/18/2023 13:22 STEPHANIA TRINIDAD
--- OUTSIDE RECORDS SUMMARY | 2024-03-23 01:14 | XMS_ITS | Encounter Summary ---
Author Name [facility] [place] Organization [place] Address [address] [place] [address] Care Team Providers Care [facility] Attendant Name Role Phone BALTA MICHEL Primary Care [...] O MEDEX BRONZ E Apr 12, 2014 [id number] LOREN, OMAS PATIENT [place] MEDICARE SUPPLEMEN KATHRYN MEDEX BRONZ E Mar 12, 2013 [id number] ALLI, OM[place] PATIENT [place] MED[place] SUPPLE[place] KATHRYN MEDEX BRONZ E Mar 12, 2013 [id number] [phone] ALLI,BENITO OMAS PATIENT MEDICARE (WNR) MEDICARE (M) PART A Feb 10, 2013 PART A [id number] TX12 BENITO CARSON PATIENT MEDICARE (WNR) MEDICARE (M) PART B Feb 10, 2013 PART B [id number] TX12 [phone] BENITO CARSON PATIENT MEDICARE (WNR) MEDICARE (M) PART A Feb 10, 2013 PART A [id number] TX12 [phone] BENITO CARSON PATIENT MEDICARE (WNR) MEDICARE (M) PART B Feb 10, 2013 PART B [id number] TX12 BENITO CARSON PATIENT Selected Encounter This section includes the information on record at [place] for the Encounter. Date/Time Encounter Type Encounter Description Reason Pro vider Source August 18, 2023 11:25 AM Outpatient Encounter PRIMARY CARE/MEDICINE IHE Encounter Template Text not used by [place] Plan of Treatment: Future Appointments (+ 6 [...] 16, 2023 11:00 AM AMBULATORY - PSYCHIATRY [facility] Sep 22, 2023 12:00 PM AMBULATORY - MEDICINE [facility] [place] [facility] Oct 28, 2023 11:00 AM AMBULATORY - PSYCHIATRY [facility] Nov 01, 2023 11:00 AM AMBULATORY - MEDICINE [place] [facility] Dec 02, 2023 11:00 AM AMBULATORY - NONE [place] [facility] Dec 09, 2023 11:00 AM AMBULATORY - PSYCHIATRY [facility] Dec 21, 2023 10:00 AM AMBULATORY - MEDICINE [facility] ([facility] Dec 28, 2023 10:00 AM AM[facility]ULATORY - [facility]ICINE [facility] ([facility] Jan 04, 2024 10:00 AM AMBULATORY - NONE [place] [facility] Jan 06, 2024 11:00 AM AMBULATORY - PSYCHIATRY [facility] Jan 11, 2024 10:00 AM AMBULATORY - NONE [facility] Feb 10, 2024 11:00 AM AMBULATORY - PSYCHIATRY [facility] Active, Pending, and Scheduled Orders This section includes a listing of several types of active, pending, and scheduled orders, including clinic medications orders, diagnostic test orders, procedure orders and consult orders; where the start date of the order is 45 days before the date of the Encounter or 45 days after the date of theEncounter. The data comes from all [facility]. Test Date/Time Test Type Test Details Facility Name Aug 02, 2023 12:00 AM Laboratory - Chemi stry Order CBC AND DIFF (AUTO) BLOOD (LAV-BLOOD) [facility] Aug 02, 2023 12:00 AM Laboratory - Chemi stry Order FERRITIN BLOOD (SST-SERUM) [facility] Aug 02, 2023 12:00 AM Laboratory - Chemi stry Order VITAMIN B12 BLOOD (SST-SERUM) [facility] Aug 02, 2023 12:00 AM Laboratory - Chemi stry Order FOLATE BLOOD (SST-SERUM) [facility] Aug 02, 2023 12:00 AM Laboratory - Chemi stry Order IRON & TIBC PANEL BLOOD (SST-SERUM) [facility] Radiology Reports: +/- 30 days of the [...] the Encounter. The data comes from all [facility]. Date/Time Radiology Report Provider Source August 18, 2023 02:36 PM HAND3 OR MORE VIEWS(RIGHT): PETTY CARSON [id number] -1950 M Exm Date: AUGUST 18, 2023@14:36 Req Phys: YANETH MAJANO Pat Loc: CWM/SO/SICK CALL RADIOLOGY THERAPIST (Req'g Loc Img Loc: [facility] 1 Service: [facility] , (Case 340 COMPLETE) HAND3 OR MORE VIEWS(RIGHT) (RAD Detailed) CPT:37515 Reason for Study: pain and swelling right hand along thumb Clinical History: Covering resident, fellow, RADIOLOGY THERAPIST or attending: Yaneth majano NP [place] Pager: [phone] Backup pager: History: no injury or trauma Report Status: Verified Date Reported: AUGUST 18, 2023 Date Verified: AUGUST 18, 2023 Disk Recordist E-Sig:/ES/MOLLY LOCKWOOD JR Report: Study: AP, lateral, [...] Primary Interpreting Staff: MOLLY LOCKWOOD JR, Radiologist (Disk Recordist) /MOLLY BLAS JR [facility] August 18, 2023 02:36 PM FOOT 3 OR MORE VIEWS (RIGHT): WAYNErOestesPETTY [id number] -1950 M Ex Date: AUGUST 18, 2023@14:36 Req Phys: AYNETH MAJANO Loc: CWM/SO/SICK CALL RADIOLOGY THERAPIST (Req'g Loc Img Loc: [facility] 1 [facility] , (Case 342 COMPLETE) FOOT 3 OR MORE VIEWS (RIGHT) (RAD Detailed) CPT:07258 CPT Modifiers : RT RIGHT SIDE Reason for Study: pain and swelling right foot along great toe Clinical History: Covering resident, fellow, RADIOLOGY THERAPIST or attending: Yaneth Majano NP [place] Pager: [phone] Backup pager: History: no injury or trauma Report Status: Verified Date Reported: AUGUST 18, 2023 Date Verified: AUGUST 18, 2023 Disk Recordist E-Sig:/ES/MOLLY LOCKWOOD JR Report: Study: Weight-bearing AP, [...] Primary Interpreting Staff: MOLLY LOCKWOOD JR, Radiologist (Disk Recordist) /MOLLY BLAS JR [place] [facility] Encounter Notes: All associated encounter notes This section contains the clinical notes associated to the Encounter. Date/Time Encounter Note(s) Provider Source August 18, 2023 11:25 AM PRIMARY CARE NOTE: LOCAL TITLE: WALK-IN NOTE PRIMARY CARE (T) STANDARD TITLE: PRIMARY CARE NOTE DATE OF NOTE: AUGUST 18, 2023@11:25 ENTRY DATE: AUGUST 18, 2023@11:25:35 AUTHOR: RICK DOVE EXP COSIGNER: URGENCY: STATUS: COMPLETED <====Click to Start Advanced Medical Support [place] presents to the Primary Care clinic with the following request: [ ]Medication Renewal/Refill [ ]Consultation with Team RN [ X ]Symptoms [ ]Other The [place] states they are: [ X ]Waiting [ ]Not Waiting Yes Walk in visit scheduled with PACT Nurse [ X ] At this encounter the 's demographics were verified. [ X ] At this encounter the 's Insurance information was verified. [ X ] At this encounter the below scheduled visits for the were discussed and appointment reminder card was offered. Future appointments: 08/18/2023 11:30 CWM/SO/SICK CALL RADIOLOGY THERAPIST 09/16/2023 11:00 CWM/SO/MHC/LUIS 11/01/2023 11:00 CWM/SO/PACT 9 walking in complaining of pain in right foot and hand x 2 weeks. Address and phone number verified. Appointment created. /es/ RICK DOVE AMSA Signed: 08/18/2023 11:26 Receipt Acknowledged By: 08/18/2023 11:50 /es/ GE SOLITARIO LPN LPN 08/18/2023 11:36 /es/ SHANELL MCCARTHY CERTIFIED NURSE PRACTITIONER 08/19/2023 09:32 /es/ BLAYNE GAR LPN LPN 08/19/2023 09:11 /es/ STEPHANIA TRINIDAD RN REGISTERED NURSE RICK DOVE
--- OUTSIDE RECORDS SUMMARY | 2024-03-23 01:14 | XMS_ITS | Encounter Summary ---
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 Name Role Phone BALTA MICHEL Primary Care [...] O MEDEX BRONZ E Apr 12, 2014 [id number] WILUSZ,TH [place] PAT[place] SUPPLEMEN KATHRYN MEDEX BRONZ E Mar 12, 2013 [id number] WILZ,TH [place] SU[place] KATHRYN MEDEX BRONZ E Mar 12, 2013 [id number] WILLOREN,TH OMAS PATIENT MEDICARE (WNR) MEDICARE (M) PART A Feb 10, 2013 PART A [id number] TX12 BENITO CARSON PATIENT MEDICARE (WNR) MEDICARE (M) PART B Feb 10, 2013 PART B [id number] TX12 BENITO CARSON PATIENT MEDICARE (WNR) MEDICARE (M) PART A Feb 10, 2013 PART A [id number] TX12 BENITO CARSON PATIENT MEDICARE (WNR) MEDICARE (M) PART B Feb 10, 2013 PART B [id number] TX12 BENITO CARSON PATIENT Selected Encounter This section includes the information on record at [place] for the Encounter. Date/Time Encounter Type Encounter Description Reason Provider Source August 18, 2023 11:30 AM OFFICE O/P EST MOD 30 MIN PRIMARY CARE/MEDICINE ICD-10-CM M79.674 Pain in right toe(s) YANETH MAJANO Mike Encounter Template Text not used by [place] Assessments - Encounter Diagnoses This section includes the primary and secondary diagnoses documented for the Encounter. Date/Time Primary/Secondary Diagnosis Diagnosis Name Provider Source Sep 11, 2023 01:53 PM PRIMARY Pain in right toe(s) YANETH MAJANO Sep 11, 2023 01:53 PM SECONDARY Pain in right finger(s) YANTEH MAJANO Plan of Treatment: Future Appointments (+ 6 [...] 22, 2023 12:00 PM AMBULATORY - MEDICINE [facility] [place] [facility] Oct 28, 2023 11:00 AM AMBULATORY - PSYCHIATRY [facility] Nov 01, 2023 11:00 AM AMBULATORY [place]ICINE [place] [facility] Dec 02, 2023 11:00 AM AMBULATORY - NONE [facility] Dec 09, 2023 11:00 AM AMBULATORY - PSYCHIATRY [facility] Dec 21, 2023 10:00 AM AMBULATORY - MEDICINE [facility] ([facility]) Dec 28, 2023 10:00 AM AMBULATORY - MEDICINE [facility] ([facility]) Jan 04, 2024 10:00 AM AMBULATORY - NONE [facility] Jan 06, 2024 11:00 AM AMBULATORY - PSYCHIATRY [facility] Jan 11, 2024 10:00 AM AMBULATORY - NONE [facility] Feb 10, 2024 11:00 AM AMBULATORY [...] of theEncounter. The data comes from all [facility]. Test Date/Time Test Type Test Details Facility Name Aug 02, 2023 12:00 AM Laboratory - Chemi stry Order FERRITIN BLOOD (SST-SERUM) [facility] Aug 02, 2023 12:00 AM Laboratory - Chemi stry Order CBC AND DIFF (AUTO) BLOOD (LAV-BLOOD) [facility] Aug 02, 2023 12:00 AM Laboratory - Chemi stry Order FOLATE BLOOD (SST-SERUM) [facility] Aug 02, 2023 12:00 AM Laboratory - Chemi stry Order IRON & TIBC PANEL BLOOD (SST-SERUM) [facility] Aug 02, 2023 12:00 AM Laboratory - Chemi stry Order VITAMIN B12 BLOOD (SST-SERUM) [facility] Vital Signs: All taken on the [...] 29, 2022 10:30 AM VA-TOBACCO FORMER USER [place] Tobacco Use History This section includes a history of the smoking, or tobacco-related health factors, that were collected on or before the date of the Encounter. The data comes from the [place] facility where the Encounter took place. Date/Time Smoking Status/Tobacco Use Comment F acility Sep 29, 2022 10:30 AM VA-TOBACCO QUIT 15 YRS OR MORE [facility] Jan 21, 2021 09:00 AM VA-TOBACCO NEVER USED [facility] Feb 14, 2020 01:00 PM VA-TOBACCO FORMER USER [facility] Feb 14, 2020 01:00 PM VA-TOBACCO QUIT 15 YRS OR MORE [facility] Jul 05, 2018 03:54 PM VA-TOBACCO FORMER USER [facility] Jul 05, 2018 03:54 PM VA-TOBACCO QUIT 15 YRS OR MORE [facility] May 19, 2017 01:01 PM QUIT TOBACCO USE > 7 YEARS AGO [facility] Apr 29, 2016 12:14 PM QUIT TOBACCO USE > 7 YEARS AGO Quit 20 years ago [facility] Mar 21, 2015 02:25 PM QUIT TOBACCO USE > 7 YEARS AGO [facility] May 03, 2012 12:04 PM QUIT TOBACCO USE > 7 YEARS AGO [facility] Radiology Reports: +/- 30 days of the [...] PM HAND3 OR MORE VIEWS(RIGHT): PETTY CARSON [id number] -[id number] M Exm Date: AUGUST 18, 2023@14:36 Req Phys: YANETH MAJANO Pat Loc: CWM/SO/SICK CALL SLEEVE SETTER (Req'g Loc Img Loc: [facility] 1 [facility]: [facility] , (Case [id number] COMPLETE) HAND3 OR MORE VIEWS(RIGHT) (RAD Detailed) CPT:86265 Reason for Study: pain and swelling right hand along thumb Clinical History: Covering resident, fellow, SLEEVE SETTER or attending: Yaneth majano NP [facility] Pager: [phone] Backup pager: History: no injury or trauma Report Status: Verified Date Reported: AUGUST 18, 2023 Date Verified: AUGUST 18, 2023 Union Organiser E-Sig:/ES/MOLLY LOCKWOOD JR Report: Study: AP, lateral, [...] Primary Interpreting Staff: MOLLY LOCKWOOD JR, Radiologist (Union Organiser) /MOLLY BLAS JR [facility] August 18, 2023 02:36 PM FOOT 3 OR MORE VIEWS (RIGHT): PETTY CARSON [id number] -[id number] M Ex Date: AUGUST 18, 2023@14:36 Req Phys: YANETH MAJANO Loc: CWM/SO/SICK CALL SLEEVE SETTER (Req'g Loc Img Loc: [facility]/BUILDING 1 Service: Unknown [facility] , (Case [id number] COMPLETE) FOOT 3 OR MORE VIEWS (RIGHT) (RAD Detailed) CPT:13096 CPT Modifiers : RT RIGHT SIDE Reason for Study: pain and swelling right foot along great toe Clinical History: Covering resident, fellow, SLEEVE SETTER or attending: Yaneth Majano NP [place] Pager: [phone] Backup pager: History: no injury or trauma Report Status: Verified Date Reported: AUGUST 18, 2023 Date Verified: AUGUST 18, 2023 Union Organiser E-Sig:/LILI/MOLLY LOCKWOOD JR Report: Study: Weight-bearing AP, lateral, [...] Primary Interpreting Staff: MOLLY LOCKWOOD JR, Radiologist (Union Organiser) /MOLLY BLAS JR [place] CNTL [facility] Encounter Notes: All associated encounter notes This section contains the clinical notes associated to the Encounter. Date/Time Encounter Note(s) Provider Source August 18, 2023 03:15 PM ADDENDUM: LOCAL TITLE: Addendum STANDARD TITLE: ADDENDUM DATE OF NOTE: AUGUST 18, 2023@15:15:20 ENTRY DATE: AUGUST 18, 2023@15:15:22 AUTHOR: YANETH MAJANO EXP COSIGNER: URGENCY: STATUS: COMPLETED Please notify patient his XRs show severe arthritis in both right hand and foot /lili/ SHANELL MCCARTHY CERTIFIED NURSE PRACTITIONER Signed: 08/18/2023 15:15 Receipt Acknowledged By: 08/19/2023 11:06 /lili/ STEPHANIA TRINIDAD RN REGISTERED NURSE --- Original Document --- 08/18/23 NURSE PRACTIONER/SICK VISIT: SICK CALL VISIT PETTY CARSON is a 73 y/o WHITE MALE who presents to [facility] sick call with c/o Right foot and hand swelling, pain x 2 weeks. Denies any injury or trauma. Has hx stress fracture right foot, generalized OA. Reports some redness to right hand where the pain is. Taking ibuprofen but would like to restart diclofenac for pain as he was taking this BID before and it worked better. [facility] PCP: ======= BALTA MICHEL VITAL SIGNS: Blood Pressure: 113/68 (08/18/2023 11:48) Pain: 0 (05/14/2023 09:47) Patient Height: 66 in [167.6 cm] (05/03/2023 08:52) Patient Weight: 218 lb [98.88 kg] (05/03/2023 08:52) Pulse: 66 (08/18/2023 11:48) Respiration: 15 (05/14/2023 09:47) Temperature: 97.8 F [36.6 C] (08/18/2023 11:48) REVIEW OF SYSTEMS: see HPI PHYSICAL EXAMINATION: General: Well-appearing [place] in no obvious distress. Mental Status: Alert and oriented x4. Lungs: respirations easy and unlabored CV: + radial and pedal pulses. Mod SLEEVE SETTER edema right hand/thumb and right foot/great toe. MS: Tenderness with ROM right thumb along CMC joint, right foot along proximal phalynx/great toe. No joint deformities Neuro: sensation intact right hand, foot Integument: mild erythema present right CMC joint. No erythema right foot. Psych: Normal mood and affect. Normal judgment. Cooperative with exam, follows commands. ASSESSMENT/PLAN: 1. right great toe pain and swelling - unknown etiology. DD: OA, septic arthritis, stress fracture, gout. Stop ibuprofen, start diclofenac for pain. XR ordered. 2. right thumb pain and swelling - see above. MEDICATIONS reviewed with [place] FOLLOW UP: Return to clinic 3-5 days if no improvement in symptoms. UPCOMING APPOINTMENTS: No data available /lili/ SHANELL MCCARTHY CERTIFIED NURSE PRACTITIONER Signed: 08/18/2023 14:02 08/19/2023 ADDENDUM STATUS: COMPLETED Spoke with . Advised as requested by sick call provider. [place] states he suspected that. /lili/ STEPHANIA TRINIDAD RN REGISTERED NURSE Signed: 08/19/2023 11:05 YANETH MAJANO [place] August 18, 2023 11:37 AM NURSE PRACTITIONER NOTE: LOCAL TITLE: NURSE PRACTIONER/SICK VISIT STANDARD TITLE: NURSE PRACTITIONER NOTE DATE OF NOTE: AUGUST 18, 2023@11:37 ENTRY DATE: AUGUST 18, 2023@11:37:55 AUTHOR: YANETH MAJANO EXP COSIGNER: URGENCY: STATUS: COMPLETED NURSE PRACTIONER/SICK VISIT Has ADDENDA SICK CALL VISIT PETTY CARSON is a 73 y/o WHITE MALE who presents to [facility] sick call with c/o Right foot and hand swelling, pain x 2 weeks. Denies any injury or trauma. Has hx stress fracture right foot, generalized OA. Reports some redness to right hand where the pain is. Taking ibuprofen but would like to restart diclofenac for pain as he was taking this BID before and it worked better. [facility] PCP: ======= BALTA MICHEL VITAL SIGNS: Blood Pressure: 113/68 (08/18/2023 11:48) Pain: 0 (05/14/2023 09:47) Patient Height: 66 in [167.6 cm] (05/03/2023 08:52) Patient Weight: 218 lb [98.88 kg] (05/03/2023 08:52) Pulse: 66 (08/18/2023 11:48) Respiration: 15 (05/14/2023 09:47) Temperature: 97.8 F [36.6 C] (08/18/2023 11:48) REVIEW OF SYSTEMS: see HPI PHYSICAL EXAMINATION: General: Well-appearing in no obvious distress. Mental Status: Alert and oriented x4. Lungs: respirations easy and unlabored CV: + radial and pedal pulses. Mod SLEEVE SETTER edema right hand/thumb and right foot/great toe. MS: Tenderness with ROM right thumb along CMC joint, right foot along proximal phalynx/great toe. No joint deformities Neuro: sensation intact right hand, foot Integument: mild erythema present right CMC joint. No erythema right foot. Psych: Normal mood and affect. Normal judgment. Cooperative with exam, follows commands. ASSESSMENT/PLAN: 1. right great toe pain and swelling - unknown etiology. DD: OA, septic arthritis, stress fracture, gout. Stop ibuprofen, start diclofenac for pain. XR ordered. 2. right thumb pain and swelling - see above. MEDICATIONS reviewed with FOLLOW UP: Return to clinic 3-5 days if no improvement in symptoms. UPCOMING APPOINTMENTS: No data available /lili/ SHANELL MCCARTHY CERTIFIED NURSE PRACTITIONER Signed: 08/18/2023 14:02 08/18/2023 ADDENDUM STATUS: COMPLETED Please notify patient his XRs show severe arthritis in both right hand and foot /SHANELL Johnson CERTIFIED NURSE PRACTITIONER Signed: 08/18/2023 15:15 Receipt Acknowledged By: 08/19/2023 11:06 /lili/ STEPHANIA TRINIDAD RN REGISTERED NURSE 08/19/2023 ADDENDUM STATUS: COMPLETED Spoke with . Advised as requested by sick call provider. [place] states he suspected that. /es/ STEPHANIA TRINIDADRN REGISTERED NURSE Signed: 08/19/2023 11:05 YANETH MAJANO
--- OUTSIDE RECORDS SUMMARY | 2024-03-23 01:14 | XMS_ITS ---
Author Name [facility] [place] Address [address] [place] [address] Care Team Providers Care Sound Effects Supervisor Name Role Phone BALTA MICHEL Primary [...] O MEDEX BRONZ E Apr 12, 2014 [id number] LOREN, OM[place] PATIENT [place] MEDICARE SUPPLEMEN KATHRYN MEDEX BRONZ E Mar 12, 2013 [id number] ALLI, [place] PAT[place] SUPP[place] KATHRYN MEDEX BRONZ E Mar 12, 2013 [id number] ALLI,BENITO OMAS PATIENT MEDICARE (WNR) MEDICARE (M) PART A Feb 10, 2013 PART A [id number] TX12 BENITO CARSON PATIENT MEDICARE (WNR) MEDICARE (M) PART B Feb 10, 2013 PART B [id number] TX12 BENITO CARSON PATIENT MEDICARE (WNR) MEDICARE (M) PART A Feb 10, 2013 PART A [id number] TX12 BENITO CARSON PATIENT MEDICARE (WNR) MEDICARE (M) PART B Feb 10, 2013 PART B [id number] [id number] [phone] BENITO CARSON PATIENT Selected Encounter This section includes the information on record at [place] for the Encounter. Date/Time Encounter Type Encounter Description Reason Pro vider Source Sep 20, 2023 09:39 AM Outpatient Encounter PRIMARY CARE/MEDICINE I[place] Encounter Template Text not used by [place] Plan of Treatment: Future Appointments (+ 6 months) and Future Tests (+/- 45 days) The Plan of Treatment section includes future care activities for the patient from all [place] treatmentfacilities. This section includes future appointments and future orders which are active, pending or scheduled. Future Appointments This section includes appointments that were scheduled to occur 6 months from the date of the Encounter, up to a maximum of 20 appointments. The data comes from all [place] treatment facilities. Appointment Date/Time Appointment Type Appointme nt Facility Name Sep 22, 2023 12:00 PM AMBULATORY - MEDICINE [facility] [place] [facility] Oct 28, 2023 11:00 AM AMBULATORY - PSYCHIATRY [facility] Nov 01, 2023 11:00 AM AMBULATORY - MEDICINE [facility] [place] [facility] Dec 02, 2023 11:00 AM AMBULATORY - NONE [facility] [place] [facility] Dec 09, 2023 11:00 AM AMBULATORY - PSYCHIATRY [facility] Dec 21, 2023 10:00 AM AMBULATORY - MEDICINE [facility] ([facility] Dec 28, 2023 10:00 AM AMBULATORY - MEDICINE [facility] ([facility] Jan 04, 2024 10:00 AM AMBULATORY - NONE [facility] [place] [facility] Jan 06, 2024 11:00 AM AMBULATORY - PSYCHIATRY [facility] Jan 11, 2024 10:00 AM AMBULATORY - [facility] Feb 10, 2024 11:00 AM AMBULATORY - PSYCHIATRY [facility] Mar 16, 2024 10:00 AM AMBULATORY - PSYCHIATRY [facility] Active, Pending, and Scheduled Orders This section includes a listing of several types of active, pending, and scheduled orders, including clinic medications orders, diagnostic test orders, procedure orders and consult orders; where the start date of the order is 45 days before the date of the Encounter or 45 days after the date of theEncounter. The data comes from all [place] treatment facilities. Test Date/Time Test Type Test Details Facility Name Oct 21, 2023 12:00 AM Laboratory - Chemi stry Order CBC AND DIFF (AUTO) BLOOD (LAV-BLOOD) [facility] Encounter Notes: All associated encounter notes This section contains the clinical notes associated to the Encounter. Date/Time Encounter Note(s) Provider Source Sep 20, 2023 09:39 AM MEDICATION MGT NOT E: LOCAL TITLE: OUTPATIENT MEDICATION REQUEST STANDARD TITLE: MEDICATION MGT NOTE DATE OF NOTE: SEP 20, 2023@09:39 ENTRY DATE: SEP 20, 2023@09:39:48 AUTHOR: MIGUEL HEAD EXP COSIGNER: URGENCY: STATUS: COMPLETED MAIL ALIROCUMAB (PRALUENT) PA-F INJ,SOLN 75MG/ML INJECT 75MG (1ML) SUBCUTANEOUSLY EVERY 2 WEEKS FOR HIGH CHOLESTEROL /lili/ DESIREE HAWKINS,RN-BC REGISTERED NURSE (RN) Signed: 09/20/2023 09:40 Receipt Acknowledged By: 10/13/2023 08:25 /lili/ BALTA MICHEL MD PHYSICIAN MIGUEL HEAD
--- OUTSIDE RECORDS SUMMARY | 2024-03-23 01:15 | XMS_ITS | Encounter Summary ---
Author Name [facility] Organization [facility] Address [address] [place] [address] Care Team Providers Care Pump Tender Name Role Phone BALTA MICHEL Primary Care [...] O MEDEX BRONZ E Apr 12, 2014 [id number] WILUSZ,TH [place] PATIENT [place] SUPPLEMEN KATHRYN MEDEX BRONZ E Mar 12, 2013 [id number] WILZ,TH [place] KATHRYN MEDEX BRONZ E Mar 12, 2013 [id number] WILLOREN,TH OMAS PATIENT MEDICARE (WNR) MEDICARE (M) PART A Feb 10, 2013 PART A [id number] [phone] BENITO CARSON PATIENT MEDICARE (WNR) MEDICARE (M) PART B Feb 10, 2013 PART B [id number] [phone] BENITO CARSON PATIENT MEDICARE (WNR) MEDICARE (M) PART A Feb 10, 2013 PART A [id number] BENITO CARSON PATIENT MEDICARE (WNR) MEDICARE (M) PART B Feb 10, 2013 PART B [id number] BENITO CARSON PATIENT Selected Encounter This section includes the information on record at ID for the Encounter. Date/Time Encounter Type Encounter Description Reason Provider Source Nov 01, 2023 11:00 AM OFFICE O/P EST MOD 30 MIN PRIMARY CARE/MEDICINE ICD-10-CM Z00.01 Encounter for general adult medical exam w abnormal findings JEAN MARIE MICHEL Mike Encounter Template Text not used by ID Assessments - Encounter Diagnoses This section includes the primary and secondary diagnoses documented for the Encounter. Date/Time Primary/Secondary Diagnosis Diagnosis Name Provider Source Dec 02, 2023 10:10 AM PRIMARY Encounter for general adult medical exam w abnormal findings JEAN MARIE MICHEL Dec 02, 2023 10:10 AM SECONDARY Age-related osteoporosis w/o current pathological fracture JEAN MARIE MICHEL Dec 02, 2023 10:10 AM SECONDARY Anemia, unspecified JEAN MARIE MICHEL Dec 02, 2023 10:10 AM SECONDARY Hypertensive heart disease without heart failure JEAN MARIE MICHEL Plan of Treatment: Future Appointments (+ 6 months) and Future Tests (+/- 45 days) The Plan of Treatment section includes future care activities for the patient from all ID treatmentfacilities. This section includes future appointments and future orders which are active, pending or scheduled. Future Appointments This section includes appointments that were scheduled to occur 6 months from the date of the Encounter, up to a maximum of 20 appointments. The data comes from all ID treatment facilities. Appointment Date/Time Appointment Type Appointme nt Facility Name Dec 02, 2023 11:00 AM [facility]ONE [facility] Dec 09, 2023 11:00 AM AMBULATORY - PSYCHIATRY [facility] Dec 21, 2023 10:00 AM AMBULATORY - MEDICINE [facility] ([id number] Dec 28, 2023 10:00 AM AMBULATORY - MEDICINE [facility] ([facility]) Jan 04, 2024 10:00 AM AMBULATORY - NONE [facility] Jan 06, 2024 11:00 AM AMBULATORY - PSYCHIATRY [facility] Jan 11, 2024 10:00 AM AMBULATORY - NONE [facility] Feb 10, 2024 11:00 AM AMBULATORY - PSYCHIATRY [facility] Mar 16, 2024 10:00 AM AMBULATORY - PSYCHIATRY [facility] Apr 20, 2024 11:00 AM AMBULATORY PSYCHIATRY [facility] Active, Pending, and Scheduled Orders This section includes a listing of several types of active, pending, and scheduled orders, including clinic medications orders, diagnostic test orders, procedure orders and consult orders; where the start date of the order is 45 days before the date of the Encounter or 45 days after the date of theEncounter. The data comes from all ID treatment facilities. Test Date/Time Test Type Test Details Facility Name Oct 21, 2023 12:00 AM Laboratory - Chemi stry Order CBC AND DIFF (AUTO) BLOOD (LAV-BLOOD) [facility] Lab Results: +/- 30 days of the encounter This section includes the Chemistry and Hematology Lab Results on record with ID for the patient. Radiology Reports and Pathology Reports are provided separately, in subsequent sections. Lab Results This section contains the Chemistry/Hematology Results that were resulted 30 days before or 30 daysafter the date of the Encounter. Date/Time Source Result Type Result - Unit Interpretation Reference Range Comment Nov 01, 2023 12:23 PM [facility] VITAMIN D 25-OH (Therapy monitor) Specimen Type: SERUM Comment: Vitamin D, 25-Hydroxy reports concentrations of two common forms, 25-OHD2 and 25-OHD3. 25-OHD3 indicates both endogenous production and supplementation. 25-OHD2 is an indicator of exogenous sources such as diet or supplementation. Therapy is based on measurement of Total 25-OHD, with levels <20 ng/mL indicative of Vitamin D deficiency, while levels between 20 ng/mL and 30 ng/mL suggest insufficiency. Optimal levels are > or = 30 ng/mL. For additional information, please refer to http://education .[employer]/faq/EGN338 (This link is being provided for informational/ educational purposes only.) This test was developed and its analytical performance characteristics have been determined by [facility] [place]. It has not been cleared or approved by the U.S. Food and Drug Administration. This assay has been validated pursuant to the CLIA regulations and is used for clinical purposes. This test was developed and its analytical performance characteristics have been determined by [facility] [place]. It has not been cleared or approved by the U.S. Food and Drug Administration. This assay has been validated pursuant to the CLIA regulations and is used for clinical purposes. Test Performed by [facility], [facility], [address] [place] [address] Mike Porter M.D., Ph.D., Director of Laboratories , CLIA [id number] TEST PERFORMED AT: , Ordering Provider: MELI MICHEL LISA Report Released Date/Time: Nov 01, 2023 11:43 AM Reporting Lab: [address] [address] Performing Lab: [facility] [address] [address] VITAMIN D, 25-OH, TOTAL 61 ng/mL 30-100 VITAMIN D, 25-OH, D3 61 ng/mL VITAMIN D, 25-OH, D2 <4 ng/mL Nov 01, 2023 12:23 PM [facility] MAGNESIUM Specimen Type: SERUM No comment entered. Ordering Provider: MELI MICHEL LISA Report Released Date/Time: Nov 01, 2023 11:43 AM Reporting Lab: [address] [address] Performing Lab: [address] [address] MAGNESIUM 2.1 mg/dL 1.6-2.6 Nov 01, 2023 12:23 PM [facility] [place] [facility] CALCIUM Specimen Type: SERUM No comment entered. Ordering Provider: MELI MICHEL Report Released Date/Time: Nov 01, 2023 11:43 AM Reporting Lab: [facility] [place] [facility] [address] [facility] [address] Performing Lab: [facility] [place] [facility] [address] [facility] [address] CALCIUM 8.8 mg/dL 8.5-10.2 Oct 28, 2023 12:08 PM [facility] [place] [facility] FOLATE (WROX) Specimen Type: SERUM No comment entered. Ordering Provider: MELI MICHEL Report Released Date/Time: Oct 21, 2023 02:23 PM Reporting Lab: [facility] [place] [facility] [address] [facility] [address] Performing Lab: [facility] [place] [facility] [address] [facility] [address] FOLATE (WROX) >20.00 ng/mL >5.2 Oct 28, 2023 12:08 PM [facility] FERRITIN Specimen Type: SERUM No comment entered. Ordering Provider: MELI MICHEL Report Released Date/Time: Oct 21, 2023 02:23 PM Reporting Lab: [facility] [place] [facility] [address] [facility] [address] Performing Lab: [facility] [place] [facility] [address] [facility] [address] FERRITIN 84 ng/mL 20-300 Oct 28, 2023 12:08 PM [facility] VITAMIN B12 Specimen Type: SERUM No comment entered. Ordering Provider: MELI MICHEL Report Released Date/Time: Oct 21, 2023 02:23 PM Reporting Lab: [facility] [place] [facility] [address] [facility] [address] Performing Lab: [facility] [place] [facility] [address] [facility] [address] VITAMIN B12 571 pg/mL 200-900 Oct 28, 2023 12:08 PM [facility] [place] [facility] IRON & TIBC PANEL Specimen Type: SERUM No comment entered. Ordering Provider: MELI MICHEL Report Released Date/Time: Oct 21, 2023 02:23 PM Reporting Lab: [facility] [address] [facility] [address] Performing Lab: [address] [address] TIBC 347 ug/dL 204-475 IRON 101 ug/dL 40-160 Transferrin Saturation 29.1 20.0-50.0 Oct 28, 2023 12:06 PM [facility] LIPID PANEL FASTING Specimen Type: SERUM No comment entered. Ordering Provider: MELI MICHEL Report Released Date/Time: May 03, 2023 09:13 AM Reporting Lab: [address] [address] Performing Lab: [address] [address] CHOLESTEROL 91 mg/dL TRIGLYCERIDE 84 mg/dL 0-150 LDL calculated 28 mg/dL 0-129 CHOL/HDL 2.0 HDL CHOLESTEROL 46 mg/dL 40-60 Oct 28, 2023 12:06 PM [facility] LIVER FUNCTION Specimen Type: SERUM No comment entered. Ordering Provider: MELI MICHEL Report Released Date/Time: May 03, 2023 09:13 AM Reporting Lab: [address] [address] Performing Lab: [address] [address] PROTEIN,TOTAL 6.9 g/dL 6.0-8.3 ALBUMIN 4.0 g/dL 3.5-5.0 ALKALINE PHOSPHATASE 132 U/L 40-150 AST 32 U/L 5-34 ALT 35 U/L BILIRUBIN, TOTAL 1.0 mg/dL 0.2-1.2 Oct 28, 2023 12:06 PM [facility] BASIC METABOLIC PANEL (fasting) Specimen Type: SERUM No comment entered. Ordering Provider: MELI MICHEL LISA Report Released Date/Time: May 03, 2023 09:13 AM Reporting Lab: [facility] [address] [facility] [address] Performing Lab: [facility] [address] [facility] [address] UREA NITROGEN 30 mg/dL H 7-25 GLUCOSE 100 mg/dL 65-100 SODIUM 137 mmol/L 135-145 POTASSIUM 4.1 mmol/L 3.5-5.0 CHLORIDE 103 mmol/L 100-110 CO2 24 meq/L 20-30 CREATININE, Serum 1.09 mg/dL 0.50-1.40 eGFR(CKD-EPI 2020) 70 mL/min >60 Oct 28, 2023 12:06 PM [facility] HEMOGLOBIN A1C PANEL Specimen Type: BLOOD Comment: Values obtained from A1C measurements can vary. For atypical A1C assays, a reported value of 7.0 could actually be between 6.72 and 7.28 if measured by a reference method. A reported value of 9.0 could actually be between 8.73 and 9.27. Ref: http://www.ngsp. org/CAPdata.asp Ordering Provider: MELI MICHEL Report Released Date/Time: May 03, 2023 09:13 AM Reporting Lab: [facility] [address] [facility] [address] Performing Lab: [facility] [address] [facility] [address] HEMOGLOBIN A1C 5.3 4.0-5.6 Oct 28, 2023 12:06 PM [facility] TSH Specimen Type: SERUM No comment entered. Ordering Provider: MELI MICHEL Report Released Date/Time: May 03, 2023 09:13 AM Reporting Lab: [facility] [address] [facility] [address] Performing Lab: [facility] [address] [facility] [address] TSH 1.59 u[IU]/mL 0.35-5.00 Oct 28, 2023 12:06 PM [facility] CBC AND DIFF (AUTO) Specimen Type: BLOOD No comment entered. Ordering Provider: MELI MICHEL Report Released Date/Time: May 03, 2023 09:13 AM Reporting Lab: [facility] [address] [facility] [address] Performing Lab: [facility] [address] [facility] [address] WBC 4.05 10*3/uL L 4.50-11.00 RBC 4.86 10*6/uL 4.23-5.66 HGB 13.9 g/dL 12.8-17 HCT 40.9 39.2-50.4 MCV 84.2 fL 82-99 MCHC 34.0 g/dL 30.8-35.1 PLT 143 10*3/uL 140-360 RDW-CV 13.0 12.0-16.0 MONO, ABS 0.36 10*3/uL 0.30-1.10 MCH 28.6 pg 26.2-32.6 NEUT % 52.3 43.7-75.8 LYMPH % 35.6 14.0-42.3 MONO % 8.9 5.1-13.7 EOS % 2.7 0.4-6.8 BASO % 0.5 0.1-2.0 NEUT, ABS 2.12 10*3/uL L 2.20-7.60 LYMPH, ABS 1.44 10*3/uL 1.00-3.20 EOS, ABS 0.11 10*3/uL 0.03-0.44 BASO, ABS 0.02 10*3/uL 0.01-0.13 IMMATURE GRAN % 0.0 0.0-0.7 IMMATURE GRAN, ABS 0.00 10*3/uL 0.00-0.06 NRBC % 0.0 0.0-0.0 NRBC, ABS 0.00 10*3/uL 0.00-0.00 Social History: Smoking Status (Most current) and Tobacco Use (All prior to encounter date) This section includes the most current, and the historical, smoking and tobacco- related health factors from the ID facility where the Encounter took place. Current Smoking Status This section includes the most current smoking, or tobacco-related health factor, from the ID facility where the Encounter took place. Date/Time Current Smoking Status Comment Gonzalo lin Nov 01, 2023 11:00 AM VA-TOBACCO NEVER USED [place] Tobacco Use History This section includes a history of the smoking, or tobacco-related health factors, that were collected on or before the date of the Encounter. The data comes from the [facility] where the Encounter took place. Date/Time Smoking Status/Tobacco Use Comment F acility Sep 29, 2022 10:30 AM VA-TOBACCO FORMER USER [place] Sep 29, 2022 10:30 AM VA-TOBACCO QUIT 15 YRS OR MORE [place] Jan 21, 2021 09:00 AM VA-TOBACCO NEVER USED [place] Feb 14, 2020 01:00 PM VA-TOBACCO FORMER USER [place] Feb 14, 2020 01:00 PM VA-TOBACCO QUIT 15 YRS OR MORE [place] Jul 05, 2018 03:54 PM VA-TOBACCO FORMER USER [place] Jul 05, 2018 03:54 PM VA-TOBACCO QUIT 15 YRS OR MORE [place] May 19, 2017 01:01 PM QUIT TOBACCO USE > 7 YEARS AGO [place] Apr 29, 2016 12:14 PM QUIT TOBACCO USE > 7 YEARS AGO Quit 20 years ago [place] Mar 21, 2015 02:25 PM QUIT TOBACCO USE > 7 YEARS AGO [place] May 03, 2012 12:04 PM QUIT TOBACCO USE > 7 YEARS AGO [place] Encounter Notes: All associated encounter notes This section contains the clinical notes associated to the Encounter. Date/Time Encounter Note(s) Provider Source Nov 01, 2023 11:11 AM PREVENTIVE MEDICIN E NURSING NOTE: LOCAL TITLE: CLINICAL REMINDERS/NURSING STANDARD TITLE: PREVENTIVE MEDICINE NURSING NOTE DATE OF NOTE: NOV 01, 2023@11:11 ENTRY DATE: NOV 01, 2023@11:11:22 AUTHOR: MAYDA GALLEGOSIGNER: URGENCY: STATUS: COMPLETED Advance Directive Screen MH AD: Patient does not have a completed advance directive on file at any facility, ID or outside. S/he is not interested in completing one at this time. The patient received education about Advance Directives and written notification of his/her rights. Tobacco Use Screening: The patient has never used tobacco. Alcohol Use Screen (AUDIT-C): Alcohol Screen: SCREEN FOR ALCOHOL (AUDIT-C) An alcohol screening test (AUDIT-C) was negative (score=1). 1. How often did you have a drink containing alcohol in the past year? Consider a drink to be a 12 ounce can or bottle of regular beer, 8 ounces of malt liquor, a 5 ounce glass of table wine, or a 1.5 ounce shot of liquor (like scotch, gin, or vodka). Monthly or less 2. How many drinks containing alcohol did you have on a typical day when you were drinking in the past year? One or two drinks 3. How often did you have six or more drinks on one occasion in the past year? Never COVID-19 Immunization: Defer due to a PRECAUTION Reason: def Sexual Orientation: The patient thinks of their sexual orientation as: Straight or Heterosexual RHS Screen: RHS Screen Session Format: Face to Face Environmental Check Upon inquiry, the individual reports that the environment is safe to proceed. Informed Consent to Screen and Document The individual consents to proceed with screening. The individual consents to documentation of responses. PRIMARY SCREEN: In the past 12 months, how often did a current or former intimate partner (e.g., boyfriend, girlfriend, , , sexual partner): 1. Scream or curse at you Never 2. Insult or talk down to you Never 3. Threaten you with harm Never 4. Physically hurt you Never 5. Force or pressure you to have sexual contact against your will, or when you were unable to say no Never ?? The HITS tool (items 1-4 above) is US copyright protected by Dayron Valerio MD, and the user has full rights to use it throughout the [facility] system. PRIMARY SCREEN RESULT: The Primary Screen is NEGATIVE. The individual answered never to all forms of IPV above (i.e., answered never to all 5 items) The individual accepts education and/or resources: No EDUCATION: The individual indicated readiness to learn. Education offered during this session as noted above. The individual indicated understanding by asking relevant questions and making appropriate comments. No barriers to learning were observed or identified. Eye Care At-Risk Screen : Patient identified to be at risk for the following eye condition(s): MACULAR DEGENERATION: Macular Degeneration Risk Factors Information: Reminder Term: VA-AMD RISK FACTORS Encounter Diagnosis: 09/16/2022@11:00 I25.10 (ICD-10-CM) Atherosclerotic Heart Disease of [place] Coronary Artery without Angina Pectoris rank: PRIMARY Prov. Narr. - Atherosclerotic Heart Disease of [place] Coronary Artery without Angina Pectoris Action: Referral Ordered: Comprehensive Eye Exam Patient has an exclusion to Tele-Eye Screening. Schedule for a comprehensive eye exam ordered. Comment: PHONE NUMBER WAS GIVEN TO THE HE WILL CALL TO SCHEDULE EYE EXAM MED LIST GIVEN TO PROVIDER COMPLETED MED REC DURING THE VISIT. /lili/ MAYDA GALLEGOS LPN LPN Signed: 11/01/2023 11:13 MAYDA GALLEGOS [place] Nov 01, 2023 08:13 AM PHYSICIAN NOTE: LOCAL TITLE: MD NOTE STANDARD TITLE: PHYSICIAN NOTE DATE OF NOTE: NOV 01, 2023@08:13 ENTRY DATE: NOV 01, 2023@08:13:30 AUTHOR: BALTA MICHEL EXP COSIGNER: URGENCY: STATUS: COMPLETED SUBJECT: semi-annual CC: 73 year old WHITE MALE 70%SC HPI: Discussed interruption of lipid medication Followed by mental health/vp digital marketing social media and crm Followed by [facility] GI for anemia Problem list and medications reviewed. Last Labs: October 2023 with baseline leukopenia Active problems - Computerized Problem List is the source for the followin. Normocytic anemia folllowed by [facility] GI hgb 11.9 (May 2022) 2. Osteoporosis DEXA June [address]-management Dr. León, [facility] (minor, [facility] is primary) 4. Pain in right foot [...] mentioned in report 13. Hypothyroidism (SNOMED CT 10704173) levothyroxine 125mcg 14. Benign hypertension (SNOMED CT 98932544) on HCTZ / lisinopril 15. Hyperlipidemia (SNOMED CT 63215335) on high intensity atorvastatin / zetia 16. Tinnitus * 17. Osteoarthritis (SNOMED CT 952377816) PHYSICAL EXAMINATION/DIRECTED EXAM: BP:118/79 (11/01/2023 11:10) Resp:20 (11/01/2023 11:10) Temp:96.1 F [35.6 C] (11/01/2023 11:10) Pulse:62 (11/01/2023 11:10) WEIGHT 11/01/2023 11:10 219.4(99.52)[35*] 05/03/2023 08:52 218(98.88)[35*] 09/16/2022 11:01 211(95.71)[31*] Comfortable S1S2 RRR lungs CTA Benign abdomen No edema ASSESSMENT & PLAN: 73 year old MALE 70%SC presents for semi-annual visit Osteoporosis with last bone density on June 2021 Vitamin D deficiency/supplementation VITAMIN D 25-OH Collection DT Specimen Test Name Result Units Ref Range 07/20/2022 14:11 SERUM VITAMIN D (25-OH) 95 H ng/mL 20 - 50 Vitamin D - for recheck 10/28/2023 12:06 SERUM 1.59 Hypertension on low-dose lisinopril; at goal Hyperlipidemia on alirucumab Collection DT Spec CHOL HDL CHO/HDL LDL-c TRIG 10/28/2023 12:06 SERUM 91 46 2.0 28 84 04/28/2023 13:39 SERUM 83 41 2.0 31 57 07/20/2022 14:11 SERUM 122 16 L 7.6 77 147 12/16/2021 14:09 SERUM 132 40 3.3 70 112 07/15/2021 09:36 SERUM 165 44 3.8 102 95 History of anemia Collection DT Spec WBC RBC HGB HCT MCV MCH PLT 10/28/2023 12:06 BLOOD 4.05 L 4.86 13.9 40.9 84.2 28.6 143 04/28/2023 13:39 BLOOD 4.69 4.53 12.7 L 38.4 L 84.8 28.0 178 07/20/2022 14:11 BLOOD 7.08 4.28 11.9 L 35.4 L 82.7 27.8 213 2022 12:24 BLOOD 9.95 4.34 11.9 L 35.8 L 82.5 27.4 248 05/01/2021 14:05 BLOOD 5.65 4.72 13.6 41.6 88.1 28.8 188 Plan of care discussed with patient who articulates understanding. Chronic issues reviewed briefly; no changes to management unless specified above. RTC 6mo TIME ATTESTATION: Time spent directly with the [...] of labs/studies and medication list. Upcoming Appointments: 11/01/2023 11:00 CWM/SO/PACT 9 Med Reconciliation: Active Outpatient Medications (including Supplies): Active Outpatient Medications Status 1) ALIROCUMAB 75MG/ML INJ 1ML PEN INJECT 75MG (1ML) ACTIVE SUBCUTANEOUSLY EVERY 2 WEEKS FOR HIGH CHOLESTEROL 2) DICLOFENAC NA 50MG EC TAB TAKE ONE TABLET BY MOUTH ACTIVE TWICE DAILY NEEDED FOR PAIN/INFLAMMATION 3) HYDROPHILIC (EQV EUCERIN) TOP CREAM APPLY A LIBERAL ACTIVE AMOUNT TOPICALLY ONCE DAILY FOR DRY SKIN 4) LEVOTHYROXINE NA (SYNTHROID) 125MCG TAB TAKE ONE ACTIVE TABLET BY MOUTH EVERY MORNING 30 MINUTES BEFORE BREAKFAST FOR THYROID - TAKE ON AN EMPTY STOMACH WITH A FULL GLASS OF WATER 5) LISINOPRIL 10MG TAB TAKE ONE TABLET BY MOUTH ONCE ACTIVE DAILY TO CONTROL BLOOD PRESSURE Active Non-VA Medications Status 1) Non-VA ASPIRIN 81MG EC TAB 81MG BY MOUTH DAILY ACTIVE 6 Total Medications Medication (Local) Status HYDROCHLOROTHIAZIDE 25MG TAB Directions: TAKE ONE TABLET BY MOUTH ONCE DAILY FOR HIGH BLOOD PRESSURE Quantity: 90 for 90 days Provider: BALTA MICHEL Expires: 10/05/23 Status: EZETIMIBE 10MG TAB Directions: TAKE ONE TABLET BY MOUTH ONCE DAILY TO LOWER CHOLESTEROL Quantity: 90 for 90 days Provider: PETTY JIMENES Expires: 09/17/23 Status: ROSUVASTATIN CA 40MG TAB Directions: TAKE ONE TABLET BY MOUTH ONCE DAILY FOR CHOLESTEROL Quantity: 90 for 90 days Provider: PETTY JIMENES Expires: 09/17/23 Status: Medication (Remote) Status No remote medications found. /lili/ BALTA MICHEL MD PHYSICIAN Signed: 11/23/2023 08:12 BALTA MICHEL [place]
--- OUTSIDE RECORDS SUMMARY | 2024-03-23 01:15 | XMS_ITS | Encounter Summary ---
Author Name [facility] [place] [facility] [place] Address [address] [place] [address] Care Team Providers Care Wet Process Technician Name Role Phone BALTA MICHEL Primary [...] O MEDEX BRONZ E Apr 12, 2014 [id number] LOREN, OMAS PATIENT [place] MED[place] SUPPLEMEN KATHRYN MEDEX BRONZ E Mar 12, 2013 [id number] ALLI, OM[place] PAT[place] SUPPLE[place] KATHRYN MEDEX BRONZ E Mar 12, 2013 [id number] ALLI,BENITO OMAS PATIENT MEDICARE (WNR) MEDICARE (M) PART A Feb 10, 2013 PART A [id number] TX12 BENITO CARSON PATIENT MEDICARE (WNR) MEDICARE (M) PART B Feb 10, 2013 PART B [id number] TX12 BENITO CARSON PATIENT MEDICARE (WNR) MEDICARE (M) PART A Feb 10, 2013 PART A [id number] TX12 BENITO CARSON PATIENT MEDICARE (WNR) MEDICARE (M) PART B Feb 10, 2013 PART B [id number] TX12 [phone] BENITO CARSON PATIENT Selected Encounter This section includes the information on record at [place] for the Encounter. Date/Time Encounter Type Encounter Description Reason Pro vider Source Nov 15, 2023 10:16 AM Outpatient Encounter PRIMARY CARE/MEDICINE IHE Encounter Template Text not used by [place] Plan of Treatment: Future Appointments (+ 6 months) and Future Tests (+/- 45 days) The Plan of Treatment section includes future care activities for the patient from all [place] treatmentfacilities. This section includes future appointments and future orders which are active, pending or scheduled. Future Appointments This section includes appointments that were scheduled to occur 6 months from the date of the Encounter, up to a maximum of 20 appointments. The data comes from all [place] treatment facilities. Appointment Date/Time Appointment Type Appointme nt Facility Name Dec 02, 2023 11:00 AM [facility] [place] [facility] Dec 09, 2023 11:00 AM AMBULATORY - PSYCHIATRY [facility] Dec 21, 2023 10:00 AM AMBULATORY - MEDICINE [facility] ([facility] Dec 28, 2023 10:00 AM [facility] Jan 04, 2024 10[facility]00 AM [facility] Jan 06, 2024 11:00 AM AMBULATORY - PSYCHIATRY [facility] Jan 11, 2024 10:00 AM AMBULATORY - NONE [place] [facility] [facility] Feb 10, 2024 11:00 AM AMBULATORY - PSYCHIATRY [facility] Mar 16, 2024 10:00 AM AMBULATORY - PSYCHIATRY [facility] Apr 20, 2024 11:00 AM AMBULATORY - PSYCHIATRY SP [facility] Active, Pending, and [...] of theEncounter. The data comes from all [place] treatment facilities. Test Date/Time Test Type Test Details Facility Name Oct 21, 2023 12:00 AM Laboratory - Chemi stry Order CBC AND DIFF (AUTO) BLOOD (LAV-BLOOD) [facility] Lab Results: +/- 30 days of the encounter This section includes the Chemistry and Hematology Lab Results on record with [place] for the patient. Radiology Reports and Pathology Reports are provided separately, in subsequent sections. Lab Results This section contains the Chemistry/Hematology Results that were resulted 30 days before or 30 daysafter the date of the Encounter. Date/Time Source Result Type Result - Unit Interpretation Reference Range Comment Nov 01, 2023 12:23 PM [facility] VITAMIN D 25-OH (Therapy monitor) Specimen Type: [...] For additional information, please refer to http://education .[employer].Personal [employer] Demand/faq/TIH484 (This link is being provided for informational/ educational purposes only.) This test was developed and its analytical performance characteristics have been determined by [employer] [place], [place]. It has not been cleared or approved by the U.S. Food and Drug Administration. This assay has been validated pursuant to the CLIA regulations and is used for clinical purposes. This test was developed and its analytical performance characteristics have been determined by [employer] [place], [place]. It has not been cleared or approved by the U.S. Food and Drug Administration. This assay has been validated pursuant to the CLIA regulations and is used for clinical purposes. Test Performed by [facility], [address] [place], [place] Mike Porter M.D., Ph.D., Director of Laboratories , CLIA [id number] TEST PERFORMED AT: , Ordering Provider: MELI MICHEL Report Released Date/Time: Nov 01, 2023 11:43 AM Reporting Lab: [facility] [place] [facility] [address] [facility] [address] Performing Lab: [facility] [address] [address] VITAMIN D, 25-OH, TOTAL 61 ng/mL 30-100 VITAMIN D, 25-OH, D3 61 ng/mL VITAMIN D, 25-OH, D2 <4 ng/mL Nov 01, 2023 12:23 PM [facility] MAGNESIUM Specimen Type: SERUM No comment entered. Ordering Provider: MELI MICHEL LISA Report Released Date/Time: Nov 01, 2023 11:43 AM Reporting Lab: [facility] [address] [facility] [address] Performing Lab: [facility] [address] [facility] [address] MAGNESIUM 2.1 mg/dL 1.6-2.6 Nov 01, 2023 12:23 PM [facility] CALCIUM Specimen Type: SERUM No comment entered. Ordering Provider: MELI MICHEL LISA Report Released Date/Time: Nov 01, 2023 11:43 AM Reporting Lab: [facility] [place] [facility] [address] [facility] [address] Performing Lab: [facility] [address] [address] CALCIUM 8.8 mg/dL 8.5-10.2 Oct 28, 2023 12:08 PM [facility] FOLATE (WROX) Specimen Type: SERUM No comment entered. Ordering Provider: MELI MICHEL LISA Report Released Date/Time: Oct 21, 2023 02:23 PM Reporting Lab: [facility] [place] [facility] [address] [facility] [address] Performing Lab: [place] [facility] [facility] [address] [facility] [address] FOLATE (WROX) >20.00 ng/mL >5.2 Oct 28, 2023 12:08 PM [facility] TRN [facility] FERRITIN Specimen Type: SERUM No comment entered. Ordering Provider: MELI MICHEL LISA Report Released Date/Time: Oct 21, 2023 02:23 PM Reporting Lab: [facility] [place] [facility] [address] [facility] [address] Performing Lab: [facility] [address] [facility] [address] FERRITIN 84 ng/mL 20-300 Oct 28, 2023 12:08 PM [facility] VITAMIN B12 Specimen Type: SERUM No comment entered. Ordering Provider: MELI MICHEL Report Released Date/Time: Oct 21, 2023 02:23 PM Reporting Lab: [facility] [address] [facility] [address] Performing Lab: [facility] [address] [facility] [address] VITAMIN B12 571 pg/mL 200-900 Oct 28, 2023 12:08 PM [facility] IRON & TIBC PANEL Specimen Type: SERUM No comment entered. Ordering Provider: MELI MICHEL LISA Report Released Date/Time: Oct 21, 2023 02:23 PM Reporting Lab: [facility] TRN [facility] [address] [facility] [address] Performing Lab: [facility] TRN [facility] [address] [facility] [address] TIBC 347 ug/dL 204-475 IRON 101 ug/dL 40-160 Transferrin Saturation 29.1 20.0-50.0 Oct 28, 2023 12:06 PM [facility] HEMOGLOBIN A1C PANEL Specimen Type: [...] May 03, 2023 09:13 AM Reporting Lab: [facility] [address] [facility] [address] Performing Lab: [address] [address] HEMOGLOBIN A1C 5.3 4.0-5.6 Oct 28, 2023 12:06 PM [facility] LIPID PANEL FASTING Specimen Type: SERUM No comment entered. Ordering Provider: MELI MICHEL Report Released Date/Time: May 03, 2023 09:13 AM Reporting Lab: [facility] [address] [facility] [address] Performing Lab: [facility] [address] [facility] [address] CHOLESTEROL 91 mg/dL TRIGLYCERIDE 84 mg/dL 0-150 LDL calculated 28 mg/dL 0-129 CHOL/HDL 2.0 HDL CHOLESTEROL 46 mg/dL 40-60 Oct 28, 2023 12:06 PM [facility] LIVER FUNCTION Specimen Type: SERUM No comment entered. Ordering Provider: MELI MICHEL Report Released Date/Time: May 03, 2023 09:13 AM Reporting Lab: [facility] [address] [facility] [address] Performing Lab: [address] [address] PROTEIN,TOTAL 6.9 g/dL 6.0-8.3 ALBUMIN 4.0 g/dL 3.5-5.0 ALKALINE PHOSPHATASE 132 U/L 40-150 AST 32 U/L 5-34 ALT 35 U/L BILIRUBIN, TOTAL 1.0 mg/dL 0.2-1.2 Oct 28, 2023 12:06 PM [facility] BASIC METABOLIC PANEL (fasting) Specimen Type: SERUM No comment entered. Ordering Provider: MELI MICHEL Report Released Date/Time: May 03, 2023 09:13 AM Reporting Lab: [facility] [address] [facility] [address] Performing Lab: [facility] [address] [facility] [address] UREA NITROGEN 30 mg/dL H 7-25 GLUCOSE 100 mg/dL 65-100 SODIUM 137 mmol/L 135-145 POTASSIUM 4.1 mmol/L 3.5-5.0 CHLORIDE 103 mmol/L 100-110 CO2 24 meq/L 20-30 CREATININE, Serum 1.09 mg/dL 0.50-1.40 eGFR(CKD-EPI 2020) 70 mL/min >60 Oct 28, 2023 12:06 PM [facility] TSH Specimen Type: SERUM No comment entered. Ordering Provider: MELI MICHEL Report Released Date/Time: May 03, 2023 09:13 AM Reporting Lab: [facility] [address] [facility] [address] Performing Lab: [facility] [address] [facility] [address] TSH 1.59 u[IU]/mL 0.35-5.00 Oct 28, 2023 12:06 PM [facility] CBC AND DIFF (AUTO) Specimen Type: BLOOD No comment entered. Ordering Provider: MELI MICHEL Report Released Date/Time: May 03, 2023 09:13 AM Reporting Lab: [facility] [address] [facility] [address] Performing Lab: [facility] [address] [facility] [address] WBC 4.05 10*3/uL L 4.50-11.00 RBC 4.86 [...] 0.0 0.0-0.0 NRBC, ABS 0.00 10*3/uL 0.00-0.00 Radiology Reports: +/- 30 days of the [...] the Encounter. The data comes from all [place] treatment facilities. Date/Time Radiology Report Provider Source Dec 02, 2023 11:00 AM BONE DENSITY DXA: WAYNEOrestesPETTY [id number] -[id number] M Ex Date: DEC 02, 2023@11:00 Req Phys: BALTA MICHEL Pat Loc: CWM/SO/PACT 9 (Req'g Loc) Img Loc: [facility] Service: Unknown [place] [facility] [place] [address] (Case 181 COMPLETE) BONE DENSITY AXIAL-DXA (RAD Detailed) CPT:88580 Reason for Study: Screen Clinical History: Report Status: Verified Date Reported: DEC 02, 2023 Date Verified: DEC 02, 2023 Dye Range Tender E-Sig:/ES/MOLLY Boateng LOCKWOOD JR Report: Study: DEXA scan. Comparison: DEXA scan from July 08, 2021. Findings: Measurement of bone mineral content gives a T score of -2.5 in the hip, which previously measured -2.6, a change of 2.3% from prior. Bone mineral content in the lumbar spine gives a T-score currently of 1.9 which previously measured 1.7, which is a change of 1.1% from prior. Only the L1 and L4 levels of the lumbar spine are again evaluated. The T score measurements are compatible with normal bone mineral content in the lumbar spine and osteoporotic bone mineral content in the left hip. However, the lumbar spine values are likely spuriously normal secondary to prominent degenerative hypertrophic bony changes. The patient is at increased risk of fracture. Optimization of calcium and vitamin D supplementation is recommended unless clinically contraindicated. If the patient has a family history of osteoporosis or other significant risk factors are present, anti-resorptive therapy is indicated. Repeat testing in 2-3 years may be considered to monitor the progress of therapy. The FRAX WHO Fracture Risk Assessment Tool is not calculated because some T-scores are at or below -2.5. Impression: Osteoporosis of the left hip, as described above. Please note: 1. The T-score compares the BMD of an individual with the young normal mean and expresses the difference as a standard deviation score. 2. The Z-score compares the BMD of an individual with age-matched, gender-matched, and ethnic-matched controls and expresses the difference as a standard deviation score. 3. The World Health Organization classified postmenopausal women as osteoporotic when T-scores are -2.5 or below, osteopenic when T-scores are between -1.0 and -2.5 and normal when T-scores are -1.0 or above. 4. In untreated postmenopausal women and elderly men there is a strong association between low BMD and the risk of osteoporotic fractures. 5. The National Osteoporosis Foundation recommends pharmacologic therapy for osteoporosis in postmenopausal women with T-scores of -2.0 or below, in the absence of other risk factors, and with T-scores of -1.5 or below if other risk factors are present (History of fragility fracture, family history of osteoporosis, weight less than 127 lbs., or smoking). 6. The [place] [employer] recommends pharmacologic therapy for osteoporosis for chronic glucocorticoid users with T-scores of -2.0 or below. Note 1: The presence of vertebral abnormalities such as scoliosis or osteophytes, or aortic/ligamentous calcifications can alter readings of the lumbar spine. In such cases, readings of the hips are more reliable. Note 2: According to the International Society for Clinical Densitometry's 2013 consensus conference, in women prior to menopause and men less than age 50: Z-scores, not T-scores are preferred. A Z-score of -2.0 or lower is defined as 'below the expected range for age' and a Z-score above -2.0 is 'within the expected range for age'. The WHO diagnostic criteria may be applied in women in the menopausal transition. Osteoporosis cannot be diagnosed in men under age 50 on the basis of BMD alone. Note 3: Approaches to reduce osteoporosis related fracture risk include optimizing calcium and vitamin D status and fall prevention measures. The National Osteoporosis Foundation recommendations can be found in http://www.nof.org/hcp/pra ctice/jzjbvzyd-sps-xzbrugl l-guidelines/ clinicians-guide. All treatment decisions require clinical judgment and consideration of individual factors including patient preferences, comorbidities, prior drug use, risk factors not captured in the FRAX model (e.g. sarcopenia, falls, vitamin D deficiency, increased bone turnover, interval significant decline in bone density) and possible under- or overestimation of fracture risk by FRAX. Useful resources regarding osteoporosis and treatment guidelines: National Osteoporosis Foundation https://www.nof.org/tisha donald/diagnosis-information/b usl-ynolpli-k amtesting/ International Osteoporosis Foundation https://www.iofbonehealth. org/ International Society for Clinical Densitometry https://www.iscd.org/patie nt-information/ FRAX(R) Fracture Risk Assessment Tool https://www.varun.ac.u k/FRAX/ Primary Diagnostic Code: No immediate attention required Primary Interpreting Staff: MOLLY LOCKWOOD JR, Radiologist (Dye Range Tender) /MOLLY BLAS JR [place] [facility] [place] [facility] Encounter Notes: All associated encounter notes This section contains the clinical notes associated to the Encounter. Date/Time Encounter Note(s) Provider Source Dec 09, 2023 03:02 PM PRIMARY CARE SECUR E MESSAGING: LOCAL TITLE: PRIMARY CARE SECURE MESSAGING STANDARD TITLE: PRIMARY CARE SECURE MESSAGING DATE OF NOTE: DEC 09, 2023@15:02 ENTRY DATE: DEC 09, 2023@15:02:49 AUTHOR: MAYA MUÑOZ EXP COSIGNER: URGENCY: STATUS: COMPLETED PRIMARY CARE SECURE MESSAGING Has ADDENDA ------Original Message ----- Sent: 12/09/2023 01:58 PM ET From: PETTY CARSON To: Kilo MICHEL_PRIMARY CARE_[facility] Subject: General:Weight loss Just reading your message now. Sorry. Did not receive a message for an appointment from weight loss clinic. /lili/ MAYA NAVARRO Signed: 12/09/2023 15:02 Receipt Acknowledged By: 12/10/2023 16:25 /es/ MAYDA GALLEGOS LPN LPN 12/09/2023 15:36 /es/ DESIREE HAWKINS,RN-BC REGISTERED NURSE (RN) 12/09/2023 ADDENDUM STATUS: COMPLETED Added a message to the Hypnosis consult requesting for someone to call to schedule his appt. /lili/ DESIREE HAWKINS,RN-BC REGISTERED NURSE (RN) Signed: 12/09/2023 15:40 MAYA MUÑOZ [place] [facility]
--- OUTSIDE RECORDS SUMMARY | 2024-03-23 01:15 | XMS_ITS | Encounter Summary ---
Author Name [facility] [place] [facility] [place] Address [address] [place] [address] Care Team Providers Care Family Manager Name Role Phone BALTA MICHEL Primary Care [...] O MEDEX BRONZ E Apr 12, 2014 [id number] [phone] LOREN, OMAS PATIENT [place] SUPPLE[place] KATRHYN MEDEX BRONZ E Mar 12, 2013 [id number] [phone] ALLI, OM[place] PATIENT [place] MED[place] SUPPLE[place] KATHRYN MEDEX BRONZ E Mar 12, 2013 [id number] ALLI,BENITO OMAS PATIENT MEDICARE (WNR) MEDICARE (M) PART A Feb 10, 2013 PART A [id number] [id number] BENITO CARSON PATIENT MEDICARE (WNR) MEDICARE (M) PART B Feb 10, 2013 PART B [id number] TX12 BENITO CARSON PATIENT MEDICARE (WNR) MEDICARE (M) PART A Feb 10, 2013 PART A [id number] TX12 [phone] BENITO CARSON PATIENT MEDICARE (WNR) MEDICARE (M) PART B Feb 10, 2013 PART B [id number] TX12 [phone] BENITO CARSON PATIENT Selected Encounter This section includes the information on record at [place] for the Encounter. Date/Time Encounter Type Encounter Description Reason Provider Source Dec 09, 2023 04:47 PM Outpatient Encounter PRIMARY CARE/MEDICINE MELI MICHEL Encounter Template Text not used by [place] Plan of Treatment: Future Appointments (+ 6 months) and Future Tests (+/- 45 days) The Plan of Treatment section includes future care activities for the patient from all [place] [facility]. This section includes future appointments and future orders which are active, pending or scheduled. Future Appointments This section includes appointments that were scheduled to occur 6 months from the date of the Encounter, up to a maximum of 20 appointments. The data comes from all [place] treatment facilities. Appointment Date/Time Appointment Type Appointme nt Facility Name Dec 21, 2023 10:00 AM AMBULATORY MEDICINE [facility] ([id number]) Dec 28, 2023 10:00 AM AMBULATORY MEDICINE [facility] (631GE) Jan 04, 2024 10:00 AM AMBULATORY - NONE [facility] Jan 06, 2024 11:00 AM AMBULATORY - PSYCHIATRY [facility] Jan 11, 2024 10:00 AM [facility] Feb 10, 2024 11:00 AM AMBULATORY - PSYCHIATRY [facility] Mar 16, 2024 10:00 AM AMBULATORY PSYCHIATRY [facility] Apr 20, 2024 11:00 AM AMBULATORY PSYCHIATRY [facility] Radiology Reports: +/- 30 days of [...] the Encounter. The data comes from all [place] treatment facilities. Date/Time Radiology Report Provider Source Dec 02, 2023 11:00 AM BONE DENSITY DXA: PETTY CARSON [id number] -[id number] M Exm Date: DEC 02, 2023@11:00 Req Phys: MARILU,BALTA Pat Loc: CWM/SO/PACT 9 (Req'g Loc) Img Loc: [facility]BUILDING 1 Service: Unknown [place] [address] (Case 181 COMPLETE) BONE DENSITY AXIAL-DXA (RAD Detailed) CPT:91965 Reason for Study: Screen Clinical History: Report Status: Verified Date Reported: DEC 02, 2023 Date Verified: DEC 02, 2023 Board Certified Family Physician E-Sig:/ES/MOLLY LOCKWOOD JR Report: Study: DEXA scan. Comparison: [...] than 127 lbs., or smoking). 6. The [place] [employer] recommends pharmacologic therapy for [...] Foundation recommendations can be found in http://www.nof.org/hcp/pra allenice/jleniawo-kbw-iwvcyvu l-guidelines/ clinicians-guide. All treatment decisions require clinical [...] treatment guidelines: National Osteoporosis Foundation https://www.nof.org/tisha donald/diagnosis-information/b usq-actrslw-s amtesting/ International Osteoporosis Foundation https://www.iofbonehealth. org/ International Society for Clinical Densitometry https://www.iscd.org/patie nt-information/ FRAX(R) Fracture Risk Assessment Tool https://www.varun.ac.u k/FRAX/ Primary Diagnostic Code: No immediate attention required Primary Interpreting Staff: MOLLY LOCKWOOD JR, Radiologist (Board Certified Family Physician) /MOLLY BLAS JR [place] [facility] [place] [facility] Encounter Notes: All associated encounter notes This section contains the clinical notes associated to the Encounter. Date/Time Encounter Note(s) Provider Source Dec 08, 2023 05:47 PM PRIMARY CARE [employer] MESSAGING: LOCAL TITLE: PRIMARY CARE SECURE MESSAGING STANDARD TITLE: PRIMARY CARE SECURE MESSAGING DATE OF NOTE: DEC 08, 2023@17:47 ENTRY DATE: DEC 08, 2023@18:47:03 AUTHOR: BALTA MICHEL EXP COSIGNER: URGENCY: STATUS: COMPLETED ------Original Message -------- Sent: 12/08/2023 06:46 PM ET From: BALTA MICHEL To: PETTY CARSON Subject: Test:Repeat Bone Density Findings: Measurement of bone mineral content gives [...] secondary to prominent degenerative hypertrophic bony changes. It's working - the bones are getting stronger! We can repeat in 3 years and decide if we'll do a drug holiday after that study /lili/ BALTA MICHEL MD PHYSICIAN Signed: 12/08/2023 18:47 BALTA MICHEL [facility]
--- OUTSIDE RECORDS SUMMARY | 2024-03-23 01:15 | XMS_ITS ---
Author Name [facility] [place] [facility] [place] [facility] [place] Address [address] [place] [address] Care Team Providers Care Correspondent Name Role Phone BALTA MICHEL Primary Care [...] O MEDEX BRONZ E Apr 12, 2014 [id number] WILLOREN, OM[place] PATIENT [place] MEDICARE SUPPLEMEN KATHRYN MEDEX BRONZ E Mar 12, 2013 [id number] WILLOREN, [place] KATHRYN MEDEX BRONZ E Mar 12, 2013 [id number] [phone] ALLI,BENITO OMAS PATIENT MEDICARE (WNR) MEDICARE (M) PART B Feb 10, 2013 PART B [id number] BENITO CARSON PATIENT MEDICARE (WNR) MEDICARE (M) PART A Feb 10, 2013 PART A [id number] BENITO CARSON PATIENT MEDICARE (WNR) MEDICARE (M) PART A Feb 10, 2013 PART A [id number] [id number] [phone] BENITO CARSON PATIENT MEDICARE (WNR) MEDICARE (M) PART B Feb 10, 2013 PART B [id number] TX12 [phone] BENITO CARSON PATIENT Selected Encounter This section includes the information on record at [place] for the Encounter. Date/Time Encounter Type Encounter Description Reason Pro vider Source Dec 09, 2023 03:02 PM Outpatient Encounter PRIMARY CARE/MEDICINE IHE Encounter Template Text not used by [place] Plan of Treatment: Future Appointments (+ 6 months) and Future Tests (+/- 45 days) The Plan of Treatment section includes future care activities for the [facility] [place] [facility] This section includes future appointments and future orders which are active, pending or scheduled. Future Appointments This section includes appointments that were scheduled to occur 6 months from the date of the Encounter, up to a maximum of 20 appointments. The data comes from all [place] treatment facilities. Appointment Date/Time Appointment Type Appointme nt Facility Name Dec 21, 2023 10:00 AM AMBULATORY - MEDICINE [facility] ([id number]) Dec 28, 2023 10:00 AM AMBULATORY MEDICINE [facility] ([facility]) Jan 04, 2024 10:00 AM [facility] Jan 06, 2024 11:00 AM AMBULATORY - PSYCHIATRY [facility] Jan 11, 2024 10:00 AM [facility] Feb 10, 2024 11:00 AM AMBULATORY - PSYCHIATRY [facility] Mar 16, 2024 10:00 AM AMBULATORY - PSYCHIATRY [facility] Apr 20, 2024 11:00 AM AMBULATORY PSYCHIATRY [facility] Radiology Reports: +/- 30 days of [...] the Encounter. The data comes from all [place] treatment facilities. Date/Time Radiology Report Provider Source Dec 02, 2023 11:00 AM BONE DENSITY DXA: PETTY CARSON [id number] -1950 M Exm Date: DEC 02, 2023@11:00 Req Phys: MARILU,BALTA Pat Loc: CWM/SO/PACT 9 (Req'g Loc) Img Loc: [facility]BUILD[facility] 1 Service: [place] [address] (Case 181 COMPLETE) BONE DENSITY AXIAL-DXA (RAD Detailed) CPT:32685 Reason for Study: Screen Clinical History: Report Status: Verified Date Reported: DEC 02, 2023 Date Verified: DEC 02, 2023 [employer] Consultant E-Sig:/ES/MOLLY LOCKWOOD JR Report: Study: DEXA scan. [...] than 127 lbs., or smoking). 6. The [place] [employer] recommends pharmacologic therapy for [...] Foundation recommendations can be found in http://www.nof.org/hcp/pra allenice/unhnxcod-ner-btbcdsj l-guidelines/ clinicians-guide. All treatment decisions require clinical [...] and treatment guidelines: National Osteoporosis Foundation https://www.nof.org/tisha ts/diagnosis-information/b lft-lheiiyb-f amtesting/ International Osteoporosis Foundation https://www.iofbonehealth. org/ International Society for Clinical Densitometry https://www.iscd.org/patie nt-information/ FRAX(R) Fracture Risk Assessment Tool https://www.varun.ac.u k/FRAX/ Primary Diagnostic Code: No immediate attention required Primary Interpreting Staff: MOLLY LOCKWOOD JR, Radiologist ([employer] Consultant) /MOLLY BLAS JR [facility] Encounter Notes: All associated encounter notes This section contains the clinical notes associated to the Encounter. Date/Time Encounter Note(s) Provider Source Dec 09, 2023 03:02 PM PRIMARY CARE SECUR E MESSAGING: LOCAL TITLE: PRIMARY CARE SECURE MESSAGING STANDARD TITLE: PRIMARY CARE SECURE MESSAGING DATE OF NOTE: DEC 09, 2023@15:02 ENTRY DATE: DEC 09, 2023@15:02:09 AUTHOR: MAYA MUÑOZ EXP COSIGNER: URGENCY: STATUS: COMPLETED ------Original Message ----- Sent: 12/09/2023 01:49 PM ET From: PETTY CARSON To: Kilo MICHEL_PRIMARY CARE_[facility] Subject: Medication:refill Rx's Please refill prescriptions ROSUVASTATIN CA 40MG TAB, and HYDROCHLOROTHIAZIDE 25MG TAB. Thank You /lili/ MAYA NAVARRO Signed: 12/09/2023 15:02 Receipt Acknowledged By: 12/10/2023 16:25 /lili/ MAYDA GALLEGOS LPN LPN 12/09/2023 15:36 /lili/ DESIREE HAWKINS,RN-BC REGISTERED NURSE (RN) MAYA MUÑOZ [facility]
--- OUTSIDE RECORDS SUMMARY | 2024-03-23 01:15 | XMS_ITS | Encounter Summary ---
Author Name [facility] [place] [facility] [place] [facility] [place] Address [address] [place] [address] Care Team Providers Care Steam Hoist Operator Name Role Phone BALTA MICHEL Primary [...] O MEDEX BRONZ E Apr 12, 2014 [id number] WILUSZ, OM[place] PATIENT [place] MEDICARE SUPPLEMEN KATHRYN MEDEX BRONZ E Mar 12, 2013 [id number] WILZ,TH [place] PATIENT [place] SU[place] KATHRYN MEDEX BRONZ E Mar 12, 2013 [id number] [phone] WILLOREN,TH OMAS PATIENT MEDICARE (WNR) MEDICARE (M) PART A Feb 10, 2013 PART A [id number] [id number] [phone] BENITO CARSON PATIENT MEDICARE (WNR) MEDICARE (M) PART B Feb 10, 2013 PART B [id number] BENITO CARSON PATIENT MEDICARE (WNR) MEDICARE (M) PART A Feb 10, 2013 PART A [id number] BENITO CARSON PATIENT MEDICARE (WNR) MEDICARE (M) PART B Feb 10, 2013 PART B [id number] [id number] [phone] BENITO CARSON PATIENT Selected Encounter This section includes the information on record at [place] for the Encounter. Date/Time Encounter Type Encounter Description Reason Provider Source Dec 09, 2023 11:00 AM PSYTX W PT 60 [facility]UTES [facility] - [facility] ICD-10-CM F43.12 Post-traumatic stress disorder, chronic SHANELL SMITH Mike Encounter Template Text not used by [place] Assessments - Encounter Diagnoses This section includes the primary and secondary diagnoses documented for the Encounter. Date/Time Primary/Secondary Diagnosis Diagnosis Name Provider Source Dec 09, 2023 12:36 PM PRIMARY Post-traumatic stress disorder, chronic SHANELL SMITH Dec 09, 2023 12:36 PM SECONDARY Major depressv disorder, single episode, [...] AMBULATORY - MEDICINE [facility] ([facility]) Dec 28, 2023 10:00 AM AMBULATORY - MEDICINE [facility] ([facility]) Jan 04, 2024 10:00 AM AMBULATORY - NONE [facility] Jan 06, 2024 11:00 AM AMBULATORY - PSYCHIATRY [facility] Jan 11, 2024 10:00 AM AMBULATORY - NONE [facility] [place] [facility] Feb 10, 2024 11:00 AM AMBULATORY - PSYCHIATRY [facility] Mar 16, 2024 10:00 AM AMBULATORY - PSYCHIATRY [facility] Apr 20, 2024 11:00 AM AMBULATORY - PSYCHIATRY [facility] Social History: Smoking Status (Most current) and Tobacco Use (All prior to encounter date) This section includes the most current, and the historical, smoking and tobacco- related health factors from the [place] facility where the Encounter took place. Current Smoking Status This section includes the most current smoking, or tobacco-related health factor, from the [place] facility where the Encounter took place. Date/Time Current Smoking Status Comment Facil [facility] Nov 01, 2023 11:00 AM VA-TOBACCO NEVER USED [place] Tobacco Use History This section includes a history of the smoking, or tobacco-related health factors, that were collected on or before the date of the Encounter. The data comes from the [place] facility where the Encounter took place. Date/Time Smoking Status/Tobacco Use Comment F acility Sep 29, 2022 10:30 AM VA-TOBACCO FORMER USER [place] Sep 29, 2022 10:30 AM VA-TOBACCO QUIT 15 YRS OR MORE [place] Jan 21, 2021 09:00 AM VA-TOBACCO NEVER USED [place] Feb 14, 2020 01:00 PM VA-TOBACCO FORMER USER [place] Feb 14, 2020 01:00 PM VA-TOBACCO QUIT 15 YRS OR MORE [place] Jul 05, 2018 03:54 PM VA-TOBACCO FORMER USER [place] Jul 05, 2018 03:54 PM VA-TOBACCO QUIT 15 YRS OR MORE [place] May 19, 2017 01:01 PM QUIT TOBACCO USE > 7 YEARS AGO [place] Apr 29, 2016 12:14 PM QUIT TOBACCO USE > 7 YEARS AGO Quit 20 years ago [place] Mar 21, 2015 02:25 PM QUIT TOBACCO USE > 7 YEARS AGO [place] May 03, 2012 12:04 PM QUIT TOBACCO USE > 7 YEARS AGO [place] Radiology Reports: +/- 30 days of the [...] the Encounter. The data comes from all [place] treatment facilities. Date/Time Radiology Report Provider Source Dec 02, 2023 11:00 AM BONE DENSITY DXA: PETTY CARSON [id number] -1950 M Ex Date: DEC 02, 2023@11:00 Req Phys: MARILUBALTA Pat Loc: CWM/SO/PACT 9 (Req'g Loc) Img Loc: [facility] 1 Service: [facility] [place] [address] (Case 181 COMPLETE) BONE DENSITY AXIAL-DXA (RAD Detailed) CPT:71522 Reason for Study: Screen Clinical History: Report Status: Verified Date Reported: DEC 02, 2023 Date Verified: DEC 02, 2023 Pharmacy Informatics Manager E-Sig:/ES/MOLLY LOCKWOOD JR Report: Study: DEXA scan. [...] than 127 lbs., or smoking). 6. The [place] [employer] recommends pharmacologic therapy for [...] Foundation recommendations can be found in http://www.nof.org/hcp/pra ctice/jccifvgn-nuh-bmshnhl l-guidelines/ clinicians-guide. All treatment decisions require clinical [...] treatment guidelines: National Osteoporosis Foundation https://www.nof.org/tisha donald/diagnosis-information/b hhq-hfbghbg-l amtesting/ International Osteoporosis Foundation https://www.iofbonehealth. org/ International Society for Clinical Densitometry https://www.iscd.org/patie nt-information/ FRAX(R) Fracture Risk Assessment Tool https://www.varun.ac.u k/FRAX/ Primary Diagnostic Code: No immediate attention required Primary Interpreting Staff: MOLLY LOCKWOOD JR, Radiologist (Pharmacy Informatics Manager) /MOLLY BLAS JR [facility] [place] [facility] Encounter Notes: All associated encounter notes This section contains the clinical notes associated to the Encounter. Date/Time Encounter Note(s) Provider Source Dec 09, 2023 11:00 AM SOCIAL WORK NOTE: LOCAL TITLE: SOCIAL WORK NOTE STANDARD TITLE: SOCIAL WORK NOTE DATE OF NOTE: DEC 09, 2023@11:00 ENTRY DATE: DEC 09, 2023@12:30:09 AUTHOR: SHANELL SMITH COSIGNER: URGENCY: STATUS: COMPLETED INFORMED CONSENT REVIEWED: At beginning of session reviewed rights and limits of confidentiality, mandatory reporting situations, duty to warn and protect, Jesus Warning, (if treatment team finds patient to be an acute danger to himself or others, that this information could be relayed to a court of law and presented to a cargo bracer), and DOD access for active duty service members. Provided Suicide Prevention Hotline number, and other contact numbers as necessary. 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 Especially when I come here. SESSION FOCUS: Met with Avon face to face for individual counseling. Avon stated he has moments that just wash over him which make him very emotional. Most of the time he is busy and distracted but certain things remind him of his dog and the emotions are overwhelming. spoke about some social interactions he had. Went to a movie with a friend and continues to walk with friend in the mornings even though he doesn't have his dog. Avon reported he is going to [place] to see his daughter in December. She will be working remotely but he is happy to hang out with her . Avon has two new kittens who have filled the void of the loss of his dog. INTERVENTIONS: Psychotherapeutic Interventions: WI; Reflective listening and support ASSESSMENT: BRIEF ASSESSMENT [...] PLAN FOR FOLLOW-UP: Next session planned for: 01/06/24 at 11am /lili/ LUCY FORERST Contamination Consultant Mental Health Signed: 12/09/2023 12:36 SHANELL SMITH
--- OUTSIDE RECORDS SUMMARY | 2024-03-23 01:15 | XMS_ITS | Encounter Summary ---
Author Name [facility] [place] [facility] [place] [facility] [place] Address [address] [place] [address] Care Team Providers Care Electroencephalographic Technologist Name Role Phone BALTA MICHEL Primary Care [...] O MEDEX BRONZ E Apr 12, 2014 [id number] [phone] WILUSZ, OM[place] PATIENT [place] SUPPLEMEN KATHRYN MEDEX BRONZ E Mar 12, 2013 [id number] [phone] WILZ,TH OM[place] PATIENT [place] SUPPLEMEN KATHRYN MEDEX BRONZ E Mar 12, 2013 [id number] WILLOREN,TH OMAS PATIENT MEDICARE (WNR) MEDICARE (M) PART A Feb 10, 2013 PART A [id number] BENITO CARSON PATIENT MEDICARE (WNR) MEDICARE (M) PART B Feb 10, 2013 PART B [id number] BENITO CARSON PATIENT MEDICARE (WNR) MEDICARE (M) PART A Feb 10, 2013 PART A [id number] BENITO CARSON PATIENT MEDICARE (WNR) MEDICARE (M) PART B Feb 10, 2013 PART B [id number] BENITO CARSON PATIENT Selected Encounter This section includes the information on [place] at [place] for the Encounter. Date/Time Encounter Type Encounter Description Reason Provider Source Oct 28, 2023 11:00 AM PSYTX W PT 60 MINUTES [facility] - [facility] ICD-10-CM F43.12 Post-traumatic stress disorder, chronic SHANELL SMITH Mike Encounter Template Text not used by [place] Assessments - Encounter Diagnoses This section includes the primary and secondary diagnoses documented for the Encounter. Date/Time Primary/Secondary Diagnosis Diagnosis Name Provider Source Oct 28, 2023 12:45 PM PRIMARY Post-traumatic stress disorder, chronic SHANELL SMITH Oct 28, 2023 12:45 PM SECONDARY Major depressv disorder, single episode, [...] Date/Time Appointment Type Appointme nt Facility Name Nov 01, 2023 11:00 AM [place] [facility] [place] [facility] Dec 02, 2023 11:00 AM AM[place] NONE [place] [facility] [place] [facility] Dec 09, 2023 11:00 AM AMBULATORY - PSYCHIATRY [facility] Dec 21, 2023 10:00 AM AMBULATORY - MEDICINE [facility] ([id number] Dec 28, 2023 10:00 AM AMBULATORY - MEDICINE [facility] ([id number] Jan 04, 2024 10:00 AM AMBULATORY - NONE [facility] Jan 06, 2024 11:00 AM AMBULATORY - PSYCHIATRY [facility] Jan 11, 2024 10:00 AM AMBULATORY - NONE [facility] Feb 10, 2024 11:00 AM AMBULATORY - PSYCHIATRY [facility] Mar 16, 2024 10:00 AM AMBULATORY - PSYCHIATRY [facility] Apr 20, 2024 11:00 AM AMBULATORY - PSYCHIATRY [facility] Active, Pending, and Scheduled Orders This section includes a listing of several types of active, pending, and scheduled orders, including clinic medications orders, diagnostic test orders, procedure orders and consult orders; where the start date of the order is 45 days before the date of the Encounter or 45 days after the date of theEncounter. The data comes from all [place] treatment facilities. Test Date/Time Test Type Test Details Facility Name Oct 21, 2023 12:00 AM Laboratory - Chemi stry Order CBC AND DIFF (AUTO) BLOOD (LAV-BLOOD) [facility] Lab Results: +/- 30 days [...] Range Comment Nov 01, 2023 12:23 PM [facility] VITAMIN D 25-OH (Therapy monitor) Specimen [...] For additional information, please refer to [email or web address] (This link is being provided for informational/ educational purposes only.) This test was developed and its analytical performance characteristics have been determined by [facility] [place]. It has not been cleared or approved by the U.S. Food and Drug Administration. This assay has been validated pursuant to the CLIA regulations and is used for clinical purposes. This test was developed and its analytical performance characteristics have been determined by [facility] [place]. It has not been cleared or approved by the U.S. Food and Drug Administration. This assay has been validated pursuant to the CLIA regulations and is used for clinical purposes. Test Performed by [facility], [facility], [address] [place], [place] Mike Porter M.D., Ph.D., Director of Laboratories , CLIA [id number] TEST PERFORMED AT: , Ordering Provider: MELI MICHEL LISA Report Released Date/Time: Nov 01, 2023 11:43 AM Reporting Lab: [facility] [address] [address] Performing Lab: [facility] [address] [address] VITAMIN D, 25-OH, TOTAL 61 ng/mL 30-100 VITAMIN D, 25-OH, D3 61 ng/mL VITAMIN D, 25-OH, D2 <4 ng/mL Nov 01, 2023 12:23 PM [facility] MAGNESIUM Specimen Type: SERUM No comment entered. Ordering Provider: MELI MICHEL LISA Report Released Date/Time: Nov 01, 2023 11:43 AM Reporting Lab: [facility] [address] [address] Performing Lab: [facility] [address] [address] MAGNESIUM 2.1 mg/dL 1.6-2.6 Nov 01, 2023 12:23 PM [facility] CALCIUM Specimen Type: SERUM No comment entered. Ordering Provider: MELI MICHEL LISA Report Released Date/Time: Nov 01, 2023 11:43 AM Reporting Lab: [facility] [place] [facility] [address] [address] Performing Lab: [facility] [address] [address] CALCIUM 8.8 mg/dL 8.5-10.2 Oct 28, 2023 12:08 PM [facility] [place] FOLATE (WROX) Specimen Type: SERUM No comment entered. Ordering Provider: MELI MICHEL Report Released Date/Time: Oct 21, 2023 02:23 PM Reporting Lab: [place] [facility] [place] [facility] [address] [address] Performing Lab: [place] [facility] [place] [facility] [address] [facility] [facility] [address] FOLATE (WROX) >20.00 ng/mL >5.2 Oct 28, 2023 12:08 PM [facility] FERRITIN Specimen Type: SERUM No comment entered. Ordering Provider: MELI MICHEL Report Released Date/Time: Oct 21, 2023 02:23 PM Reporting Lab: [place] [facility] [place] [facility] [address] [address] Performing Lab: [place] [facility] [place] [facility] [address] [address] FERRITIN 84 ng/mL 20-300 Oct 28, 2023 12:08 PM [facility] VITAMIN B12 Specimen Type: SERUM No comment entered. Ordering Provider: MELI MICHEL Report Released Date/Time: Oct 21, 2023 02:23 PM Reporting Lab: [place] [facility] [place] [facility] [address] [address] Performing Lab: [place] [facility] [place] [facility] [address] [address] VITAMIN B12 571 pg/mL 200-900 Oct 28, 2023 12:08 PM [facility] IRON & TIBC PANEL Specimen Type: SERUM No comment entered. Ordering Provider: MELI MICHEL Report Released Date/Time: Oct 21, 2023 02:23 PM Reporting Lab: [facility] [address] [address] Performing Lab: [facility] [address] [address] TIBC 347 ug/dL 204-475 IRON 101 ug/dL 40-160 Transferrin Saturation 29.1 20.0-50.0 Oct 28, 2023 12:06 PM [facility] LIPID PANEL FASTING Specimen Type: SERUM No comment entered. Ordering Provider: MELI MICHEL Report Released Date/Time: May 03, 2023 09:13 AM Reporting Lab: [facility] [address] [address] Performing Lab: [address] [address] CHOLESTEROL 91 mg/dL TRIGLYCERIDE 84 mg/dL 0-150 LDL calculated 28 mg/dL 0-129 CHOL/HDL 2.0 HDL CHOLESTEROL 46 mg/dL 40-60 Oct 28, 2023 12:06 PM [facility] LIVER FUNCTION Specimen Type: SERUM No comment entered. Ordering Provider: MELI MICHEL Report Released Date/Time: May 03, 2023 09:13 AM Reporting Lab: [facility] [address] [address] Performing Lab: [address] [address] PROTEIN,TOTAL 6.9 g/dL 6.0-8.3 ALBUMIN 4.0 g/dL 3.5-5.0 ALKALINE PHOSPHATASE 132 U/L 40-150 AST 32 U/L 5-34 ALT 35 U/L BILIRUBIN, TOTAL 1.0 mg/dL 0.2-1.2 Oct 28, 2023 12:06 PM [facility] BASIC METABOLIC PANEL (fasting) Specimen Type: SERUM No comment entered. Ordering Provider: MELI MICHEL Report Released Date/Time: May 03, 2023 09:13 AM Reporting Lab: [address] [address] Performing Lab: [facility] [address] [address] UREA NITROGEN 30 mg/dL H 7-25 GLUCOSE 100 mg/dL 65-100 SODIUM 137 mmol/L 135-145 POTASSIUM 4.1 mmol/L 3.5-5.0 CHLORIDE 103 mmol/L 100-110 CO2 24 meq/L 20-30 CREATININE, Serum 1.09 mg/dL 0.50-1.40 eGFR(CKD-EPI 2020) 70 mL/min >60 Oct 28, 2023 12:06 PM [facility] HEMOGLOBIN A1C PANEL Specimen Type: [...] May 03, 2023 09:13 AM Reporting Lab: [facility] [address] [address] Performing Lab: [facility] [address] [address] HEMOGLOBIN A1C 5.3 4.0-5.6 Oct 28, 2023 12:06 PM [facility] TSH Specimen Type: SERUM No comment entered. Ordering Provider: MELI MICHEL Report Released Date/Time: May 03, 2023 09:13 AM Reporting Lab: [facility] [address] [address] Performing Lab: [facility] [address] [address] TSH 1.59 u[IU]/mL 0.35-5.00 Oct 28, 2023 12:06 PM [facility] CBC AND DIFF (AUTO) Specimen Type: BLOOD No comment entered. Ordering Provider: MELI MICHEL Report Released Date/Time: May 03, 2023 09:13 AM Reporting Lab: [facility] [address] [address] Performing Lab: [facility] [address] [address] WBC 4.05 10*3/uL L 4.50-11.00 RBC 4.86 [...] Gonzalo lin Sep 29, 2022 10:30 AM [place] FORMER US[place] Tobacco Use History This section includes a history of the smoking, or tobacco-related health factors, that were collected on or before the date of the Encounter. The data comes from the [place] facility where the Encounter took place. Date/Time Smoking Status/Tobacco Use Comment F acility Sep 29, 2022 10:30 AM [place]-TO[place]ACCO QUIT 15 YRS OR MORE [place] Jan 21, 2021 09:00 AM VA-TOBACCO NEVER USED [place] Feb 14, 2020 01:00 PM VA-TOBACCO FORMER USER [place] Feb 14, 2020 01:00 PM VA-TOBACCO QUIT 15 YRS OR MORE [place] Jul 05, 2018 03:54 PM VA-TOBACCO FORMER USER [place] Jul 05, 2018 03:54 PM VA-TOBACCO QUIT 15 YRS OR MORE [place] May 19, 2017 01:01 PM QUIT TOBACCO USE > 7 YEARS AGO [place] Apr 29, 2016 12:14 PM QUIT TOBACCO USE > 7 YEARS AGO Quit 20 years ago [place] Mar 21, 2015 02:25 PM QUIT TOBACCO USE > 7 YEARS AGO [place] May 03, 2012 12:04 PM QUIT TOBACCO USE > 7 YEARS AGO [place] Encounter Notes: All associated encounter notes This section contains the clinical notes associated to the Encounter. Date/Time Encounter Note(s) Provider Source Oct 28, 2023 11:00 AM SOCIAL WORK NOTE: LOCAL TITLE: SOCIAL WORK NOTE STANDARD TITLE: SOCIAL WORK NOTE DATE OF NOTE: OCT 28, 2023@11:00 ENTRY DATE: OCT 28, 2023@12:39:36 AUTHOR: SHANELL SMITH COSIGNER: URGENCY: STATUS: COMPLETED INFORMED CONSENT REVIEWED: At beginning of session reviewed rights and limits of confidentiality, mandatory reporting situations, duty to warn and protect, Jesus Warning, (if treatment team finds patient to be an acute danger to himself or others, that this information could be relayed to a court of law and presented to a managing director atlas), and DOD access for active duty service members. Provided Suicide Prevention Hotline number, and other contact numbers as necessary. 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 SESSION FOCUS: Met with [place] face to face for individual counseling. [place] entered this office and began to cry. He stated it seems odd coming here without his dog Lizet. He states he has been mostly ok at home. He has 2 new kittens that are keeping him occupied however when he goes for a walk in the [place] each morning he finds he looks for the dog. He states she was so much a part of his life. 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 [place] was blown away . He believes the person was working on his 12 steps. stated he will be going to visit his daughter at the end of December. He knows he will relax while there. INTERVENTIONS: Psychotherapeutic Interventions: CA; Reflective listening and support ASSESSMENT: BRIEF ASSESSMENT [...] PLAN FOR FOLLOW-UP: Next session planned for: 12/09/23 at 11am /lili/ LUCY FORREST Product Advisor Mental Health Signed: 10/28/2023 12:46 SHANELL SMITHFIELD
--- OUTSIDE RECORDS SUMMARY | 2024-03-23 01:15 | XMS_ITS | Encounter Summary ---
Author Name [facility] [place] [facility] [place] [facility] [facility] [place] Address [address] [place] [address] Care Team Providers Care Medical Technicians Name Role Phone BALTA MICHEL Primary Care [...] O MEDEX BRONZ E Apr 12, 2014 [id number] [phone] [id number] LOREN, OMAS PATIENT [place] SU[place] KATHRYN MEDEX BRONZ E Mar 12, 2013 [id number] [phone] ALLI, OMAS PATIENT [place] KATHRYN MEDEX BRONZ E Mar 12, 2013 [id number] ALLI,BENITO OMAS PATIENT MEDICARE (WNR) MEDICARE (M) PART A Feb 10, 2013 PART A [id number] BENITO CARSON PATIENT MEDICARE (WNR) MEDICARE (M) PART B Feb 10, 2013 PART B [id number] [phone] BENITO CARSON PATIENT MEDICARE (WNR) MEDICARE (M) PART A Feb 10, 2013 PART A [id number] [phone] BENITO CARSON PATIENT MEDICARE (WNR) MEDICARE (M) PART B Feb 10, 2013 PART B [id number] BENITO CARSON PATIENT Selected Encounter This section includes the information on record at [place] for the Encounter. Date/Time Encounter Type Encounter Description Reason Pro vider Source Nov 15, 2023 10:45 AM Outpatient Encounter PRIMARY CARE/MEDICINE IHE Encounter Template Text not used by [place] Plan of Treatment: Future Appointments (+ 6 [...] 02, 2023 11:00 AM [place] [facility] [place] [facility] Dec 09, 2023 11:00 AM AMBULATORY - PSYCHIATRY [facility] Dec 21, 2023 10:00 AM AMBULATORY - MEDICINE [facility] Dec 28, 2023 10:00 AM [facility] Jan 04, 2024 10:00 AM AM[place]ULATORY - [place]ONE [place] [facility] Jan 06, 2024 11:00 AM AMBULATORY - PSYCHIATRY SP [facility] Jan 11, 2024 10:00 AM AMBULATORY - NONE [place] [facility] Feb 10, 2024 11:00 AM AMBULATORY - PSYCHIATRY [facility] Mar 16, 2024 10:00 AM AMBULATORY - PSYCHIATRY [facility] Apr 20, 2024 11:00 AM AMBULATORY - PSYCHIATRY SP [facility] Active, Pending, [...] of theEncounter. The data comes from all [place] treatment facilities. Test Date/Time Test Type Test Details Facility Name Oct 21, 2023 12:00 AM Laboratory - Chemi stry Order CBC AND DIFF (AUTO) BLOOD (LAV-BLOOD) [facility] Lab Results: +/- 30 days of the [...] Range Comment Nov 01, 2023 12:23 PM [facility] VITAMIN D 25-OH (Therapy monitor) Specimen [...] For additional information, please refer to http://education .[employer].Donde/faq/PDJ668 (This link is being provided for informational/ educational purposes only.) This test was developed and its analytical performance characteristics have been determined by [employer] [place], [place]. It has not been cleared or approved by the U.S. Food and Drug Administration. This assay has been validated pursuant to the CLIA regulations and is used for clinical purposes. This test was developed and its analytical performance characteristics have been determined by [employer] [place] It has not been cleared or approved by the U.S. Food and Drug Administration. This assay has been validated pursuant to the CLIA regulations and is used for clinical purposes. Test Performed by [facility], [address] [place], [place] Mike Porter M.D., Ph.D., Director of Laboratories , CLIA [id number] TEST PERFORMED AT: , Ordering Provider: MELI MICHEL Report Released Date/Time: Nov 01, 2023 11:43 AM Reporting Lab: [facility] [place] [facility] [address] [facility] [address] Performing Lab: [facility] [address] [address] VITAMIN D, 25-OH, TOTAL 61 ng/mL 30-100 VITAMIN D, 25-OH, D3 61 ng/mL VITAMIN D, 25-OH, D2 <4 ng/mL Nov 01, 2023 12:23 PM [facility] MAGNESIUM Specimen Type: SERUM No comment entered. Ordering Provider: MELI MICHEL LISA Report Released Date/Time: Nov 01, 2023 11:43 AM Reporting Lab: [facility] [address] [facility] [address] Performing Lab: [facility] [address] [facility] [address] MAGNESIUM 2.1 mg/dL 1.6-2.6 Nov 01, 2023 12:23 PM [facility] CALCIUM Specimen Type: SERUM No comment entered. Ordering Provider: MELI MICHEL LISA Report Released Date/Time: Nov 01, 2023 11:43 AM Reporting Lab: [facility] [place] [facility] [address] [facility] [address] Performing Lab: [facility]ITAL[facility]ETS [address] [address] CALCIUM 8.8 mg/dL 8.5-10.2 Oct 28, 2023 12:08 PM [facility] FOLATE (WROX) Specimen Type: SERUM No comment entered. Ordering Provider: MELI MICHEL LISA Report Released Date/Time: Oct 21, 2023 02:23 PM Reporting Lab: [facility] [place] [facility] [address] [facility] [address] Performing Lab: [place] [facility] [address] [facility] [address] FOLATE (WROX) >20.00 ng/mL >5.2 Oct 28, 2023 12:08 PM [facility] FERRITIN Specimen Type: SERUM No comment entered. Ordering Provider: MELI MICHEL LISA Report Released Date/Time: Oct 21, 2023 02:23 PM Reporting Lab: [facility] [place] [facility] [address] [facility] [address] Performing Lab: [facility]TR[facility] [address] [facility] [address] FERRITIN 84 ng/mL 20-300 Oct 28, 2023 12:08 PM [facility] VITAMIN B12 Specimen Type: SERUM No comment entered. Ordering Provider: MELI MICHEL Report Released Date/Time: Oct 21, 2023 02:23 PM Reporting Lab: [facility] [address] [facility] [address] Performing Lab: [facility] [address] [facility] [address] VITAMIN B12 571 pg/mL 200-900 Oct 28, 2023 12:08 PM [facility] IRON & TIBC PANEL Specimen Type: SERUM No comment entered. Ordering Provider: MELI MICHEL LISA Report Released Date/Time: Oct 21, 2023 02:23 PM Reporting Lab: [facility] [address] [facility] [address] Performing Lab: [facility] TRN [facility] [address] [facility] [address] TIBC 347 ug/dL 204-475 IRON 101 ug/dL 40-160 Transferrin Saturation 29.1 20.0-50.0 Oct 28, 2023 12:06 PM [facility] HEMOGLOBIN A1C PANEL Specimen Type: [...] May 03, 2023 09:13 AM Reporting Lab: [facility] [address] [facility] [address] Performing Lab: [address] [address] HEMOGLOBIN A1C 5.3 4.0-5.6 Oct 28, 2023 12:06 PM [facility] LIPID PANEL FASTING Specimen Type: SERUM No comment entered. Ordering Provider: MELI MICHEL Report Released Date/Time: May 03, 2023 09:13 AM Reporting Lab: [facility] [address] [facility] [address] Performing Lab: [facility] [address] [facility] [address] CHOLESTEROL 91 mg/dL TRIGLYCERIDE 84 mg/dL 0-150 LDL calculated 28 mg/dL 0-129 CHOL/HDL 2.0 HDL CHOLESTEROL 46 mg/dL 40-60 Oct 28, 2023 12:06 PM [facility] LIVER FUNCTION Specimen Type: SERUM No comment entered. Ordering Provider: MELI MICHEL Report Released Date/Time: May 03, 2023 09:13 AM Reporting Lab: [facility] [address] [facility] [address] Performing Lab: [address] [address] PROTEIN,TOTAL 6.9 g/dL 6.0-8.3 ALBUMIN 4.0 g/dL 3.5-5.0 ALKALINE PHOSPHATASE 132 U/L 40-150 AST 32 U/L 5-34 ALT 35 U/L BILIRUBIN, TOTAL 1.0 mg/dL 0.2-1.2 Oct 28, 2023 12:06 PM [facility] BASIC METABOLIC PANEL (fasting) Specimen Type: SERUM No comment entered. Ordering Provider: MELI MICHEL Report Released Date/Time: May 03, 2023 09:13 AM Reporting Lab: [facility] [address] [facility] [address] Performing Lab: [facility] [address] [facility] [address] UREA NITROGEN 30 mg/dL H 7-25 GLUCOSE 100 mg/dL 65-100 SODIUM 137 mmol/L 135-145 POTASSIUM 4.1 mmol/L 3.5-5.0 CHLORIDE 103 mmol/L 100-110 CO2 24 meq/L 20-30 CREATININE, Serum 1.09 mg/dL 0.50-1.40 eGFR(CKD-EPI 2020) 70 mL/min >60 Oct 28, 2023 12:06 PM [facility] TSH Specimen Type: SERUM No comment entered. Ordering Provider: MELI MICHEL Report Released Date/Time: May 03, 2023 09:13 AM Reporting Lab: [facility] [address] [facility] [address] Performing Lab: [facility] [address] [facility] [address] TSH 1.59 u[IU]/mL 0.35-5.00 Oct 28, 2023 12:06 PM [facility] CBC AND DIFF (AUTO) Specimen Type: BLOOD No comment entered. Ordering Provider: MELI MICHEL Report Released Date/Time: May 03, 2023 09:13 AM Reporting Lab: [facility] [address] [facility] [address] Performing Lab: [facility] [address] [facility] [address] WBC 4.05 10*3/uL L 4.50-11.00 RBC 4.86 [...] the Encounter. The data comes from all [place] treatment facilities. Date/Time Radiology Report Provider Source Dec 02, 2023 11:00 AM BONE DENSITY DXA: WAYNEOrestesPETTY [id number] -[id number] M Ex Date: DEC 02, 2023@11:00 Req Phys: BALTA MICHEL Pat Loc: CWM/SO/PACT 9 (Req'g Loc) Img Loc: [facility]/BUILDING 1 Service: Unknown [place] [facility] [place] [address] (Case [id number] COMPLETE) BONE DENSITY AXIAL-DXA (RAD Detailed) CPT:39094 Reason for Study: Screen Clinical History: Report Status: Verified Date Reported: DEC 02, 2023 Date Verified: DEC 02, 2023 Quality Controller E-Sig:/ES/MOLLY Boateng LOCKWOOD JR Report: Study: DEXA [...] than 127 lbs., or smoking). 6. The [employer] recommends pharmacologic therapy for [...] Foundation recommendations can be found in http://www.nof.org/hcp/pra ctice/llthotzc-cxs-vnkbrmp l-guidelines/ clinicians-guide. All treatment decisions require clinical [...] treatment guidelines: National Osteoporosis Foundation https://www.nof.org/tisha donald/diagnosis-information/b xnf-nrjzmco-x amtesting/ International Osteoporosis Foundation https://www.iofbonehealth. org/ International Society for Clinical Densitometry https://www.iscd.org/patie nt-information/ FRAX(R) Fracture Risk Assessment Tool https://www.varun.ac.u k/FRAX/ Primary Diagnostic Code: No immediate attention required Primary Interpreting Staff: MOLLY LOCKWOOD JR, Radiologist (Quality Controller) /MOLLY BLAS JR [place] [facility] Encounter Notes: All associated encounter notes This section contains the clinical notes associated to the Encounter. Date/Time Encounter Note(s) Provider Source Nov 15, 2023 10:45 AM MEDICATION MGT NOT E: LOCAL TITLE: OUTPATIENT MEDICATION REQUEST STANDARD TITLE: MEDICATION MGT NOTE DATE OF NOTE: NOV 15, 2023@10:45 ENTRY DATE: NOV 15, 2023@10:45:37 AUTHOR: JACQUELYN IVY EXP COSIGNER: URGENCY: STATUS: COMPLETED Please renew for mail EZETIMIBE TAB 10MG TAKE ONE TABLET BY MOUTH ONCE DAILY TO LOWER CHOLESTEROL Quantity: 90 Refills: 3 /es/ DESIREE MEDINA RN-BC REGISTERED NURSE Signed: 11/15/2023 10:45 Receipt Acknowledged By: 11/23/2023 08:11 /es/ BALTA MICHEL MD PHYSICIAN JACQUELYN IVY
--- OUTSIDE RECORDS SUMMARY | 2024-03-23 01:15 | XMS_ITS | Encounter Summary ---
Author Name [facility] [facility] [place] Address [address] [place] [address] Care Team Providers Care Melangeur Operator Name Role Phone BALTA MICHEL Primary [...] O MEDEX BRONZ E Apr 12, 2014 [id number] LOREN, OM[place] PATIENT [place] SUPPLEMEN KATHRYN MEDEX BRONZ E Mar 12, 2013 [id number] ALLI, [place] KATHRYN MEDEX BRONZ E Mar 12, 2013 [id number] [phone] ALLI,BENITO OMAS PATIENT MEDICARE (WNR) MEDICARE (M) PART A Feb 10, 2013 PART A [id number] [phone] BENITO GIRALDO PATIENT MEDICARE (WNR) MEDICARE (M) PART B Feb 10, 2013 PART B [id number] BENITO GIRALDO PATIENT MEDICARE (WNR) MEDICARE (M) PART A Feb 10, 2013 PART A [id number] [phone] BENITO GIRALDO PATIENT MEDICARE (WNR) MEDICARE (M) PART B Feb 10, 2013 PART B [id number] [phone] BENITO GIRALDO PATIENT Selected Encounter This section includes the information on record at NE for the Encounter. Date/Time Encounter Type Encounter Description Reason Pro vider Source Nov 15, 2023 09:16 AM Outpatient Encounter PRIMARY CARE/MEDICINE IHE Encounter Template Text not used by NE Plan of Treatment: Future Appointments (+ 6 [...] 02, 2023 11:00 AM [facility] Dec 09, 2023 11:00 AM AMBULATORY - PSYCHIATRY [facility] Dec 21, 2023 10:00 AM AMBULATORY - MEDICINE [facility] ([id number] Dec 28, 2023 10:00 AM AMBULATORY - MEDICINE [facility] ([id number]) Jan 04, 2024 10:00 AM AMBULATORY - [facility]ONE [facility] Jan 06, 2024 11:00 AM AMBULATORY - PSYCHIATRY [facility] Jan 11, 2024 10:00 AM AMBULATORY - NONE [place] [facility] Feb 10, 2024 11:00 AM AMBULATORY - PSYCHIATRY [facility] Mar 16, 2024 10:00 AM AMBULATORY - PSYCHIATRY [facility] Apr 20, 2024 11:00 AM AMBULATORY - PSYCHIATRY [facility] Active, Pending, and [...] Order CBC AND DIFF (AUTO) BLOOD (LAV-BLOOD) [facility] Lab Results: +/- 30 days of the encounter This section includes the Chemistry and Hematology Lab Results on record with [place] for the patient. Radiology Reports and Pathology Reports are provided separately, in subsequent sections. Lab Results This section contains the Chemistry/Hematology Results that were resulted 30 days before or 30 daysafter the date of the Encounter. Date/Time Source Result Type Result - Unit Interpretation Reference Range Comment Nov 01, 2023 12:23 PM [facility] VITAMIN D 25-OH (Therapy monitor) Specimen [...] For additional information, please refer to http://education .[employer]/faq/DTY820 (This link is being provided for informational/ educational purposes only.) This test was developed and its analytical performance characteristics have been determined by [employer] [place], [place]. It has not been cleared or approved by the U.S. Food and Drug Administration. This assay has been validated pursuant to the CLIA regulations and is used for clinical purposes. This test was developed and its analytical performance characteristics have been determined by [employer], [place]. It has not been cleared or approved by the U.S. Food and Drug Administration. This assay has been validated pursuant to the CLIA regulations and is used for clinical purposes. Test Performed by [facility], [address] [place], [place] Mike Porter M.D., Ph.D., Director of Laboratories , CLIA [id number] TEST PERFORMED AT: , Ordering Provider: MELI MICHEL Report Released Date/Time: Nov 01, 2023 11:43 AM Reporting Lab: [facility] [place] [facility] [address] [address] Performing Lab: [facility] [address] [address] VITAMIN D, 25-OH, TOTAL 61 ng/mL 30-100 VITAMIN D, 25-OH, D3 61 ng/mL VITAMIN D, 25-OH, D2 <4 ng/mL Nov 01, 2023 12:23 PM [facility] MAGNESIUM Specimen Type: SERUM No comment entered. Ordering Provider: MELI MICHEL LISA Report Released Date/Time: Nov 01, 2023 11:43 AM Reporting Lab: [facility] [address] [address] Performing Lab: [facility] [address] [address] MAGNESIUM 2.1 mg/dL 1.6-2.6 Nov 01, 2023 12:23 PM [facility] CALCIUM Specimen Type: SERUM No comment entered. Ordering Provider: MELI MICHEL LISA Report Released Date/Time: Nov 01, 2023 11:43 AM Reporting Lab: [facility] [place] [facility] [address] [address] Performing Lab: [facility] [address] [address] CALCIUM 8.8 mg/dL 8.5-10.2 Oct 28, 2023 12:08 PM [facility] FOLATE (WROX) Specimen Type: SERUM No comment entered. Ordering Provider: MELI MICHEL LISA Report Released Date/Time: Oct 21, 2023 02:23 PM Reporting Lab: [facility] [place] [facility] [address] [address] Performing Lab: [place] [facility]L [place] [facility] [address] [facility] [facility] [address] FOLATE (WROX) >20.00 ng/mL >5.2 Oct 28, 2023 12:08 PM [facility]N [facility] FERRITIN Specimen Type: SERUM No comment entered. Ordering Provider: MELI MICHEL LISA Report Released Date/Time: Oct 21, 2023 02:23 PM Reporting Lab: [facility] [place] [facility] [address] [address] Performing Lab: [facility]N [facility] [address] [address] FERRITIN 84 ng/mL 20-300 Oct 28, 2023 12:08 PM [facility] VITAMIN B12 Specimen Type: SERUM No comment entered. Ordering Provider: MELI MICHEL Report Released Date/Time: Oct 21, 2023 02:23 PM Reporting Lab: [facility]TRN [facility]ITAL[facility] [address] [facility] [address] Performing Lab: [facility]TRN [facility]ITAL[facility]ETS [facility] [address] [address] VITAMIN B12 571 pg/mL 200-900 Oct 28, 2023 12:08 PM [facility] IRON & TIBC PANEL Specimen Type: SERUM No comment entered. Ordering Provider: MELI MICHEL LISA Report Released Date/Time: Oct 21, 2023 02:23 PM Reporting Lab: [facility] TRN [facility]ITAL[facility] [address] [address] Performing Lab: [facility] TRN [facility]ITAL[facility] [address] [address] TIBC 347 ug/dL 204-475 IRON 101 ug/dL 40-160 Transferrin Saturation 29.1 20.0-50.0 Oct 28, 2023 12:06 PM [facility] LIPID PANEL FASTING Specimen Type: SERUM No comment entered. Ordering Provider: MELI MICHEL Report Released Date/Time: May 03, 2023 09:13 AM Reporting Lab: [facility] [address] [address] Performing Lab: [facility] [address] [address] CHOLESTEROL 91 mg/dL TRIGLYCERIDE 84 mg/dL 0-150 LDL calculated 28 mg/dL 0-129 CHOL/HDL 2.0 HDL CHOLESTEROL 46 mg/dL 40-60 Oct 28, 2023 12:06 PM [facility] LIVER FUNCTION Specimen Type: SERUM No comment entered. Ordering Provider: MELI MICHEL Report Released Date/Time: May 03, 2023 09:13 AM Reporting Lab: [facility] [address] [address] Performing Lab: [facility] [address] [address] PROTEIN,TOTAL 6.9 g/dL 6.0-8.3 ALBUMIN 4.0 g/dL 3.5-5.0 ALKALINE PHOSPHATASE 132 U/L 40-150 AST 32 U/L 5-34 ALT 35 U/L BILIRUBIN, TOTAL 1.0 mg/dL 0.2-1.2 Oct 28, 2023 12:06 PM [facility] BASIC METABOLIC PANEL (fasting) Specimen Type: SERUM No comment entered. Ordering Provider: MELI MICHEL Report Released Date/Time: May 03, 2023 09:13 AM Reporting Lab: [facility] [address] [address] Performing Lab: [facility] [address] [address] UREA NITROGEN 30 mg/dL H 7-25 GLUCOSE 100 mg/dL 65-100 SODIUM 137 mmol/L 135-145 POTASSIUM 4.1 mmol/L 3.5-5.0 CHLORIDE 103 mmol/L 100-110 CO2 24 meq/L 20-30 CREATININE, Serum 1.09 mg/dL 0.50-1.40 eGFR(CKD-EPI 2020) 70 mL/min >60 Oct 28, 2023 12:06 PM [facility] HEMOGLOBIN [...] May 03, 2023 09:13 AM Reporting Lab: [facility] [address] [address] Performing Lab: [address] [address] HEMOGLOBIN A1C 5.3 4.0-5.6 Oct 28, 2023 12:06 PM [facility] TSH Specimen Type: SERUM No comment entered. Ordering Provider: MELI MICHEL Report Released Date/Time: May 03, 2023 09:13 AM Reporting Lab: [facility] [address] [address] Performing Lab: [facility] [address] [address] TSH 1.59 u[IU]/mL 0.35-5.00 Oct 28, 2023 12:06 PM [facility] CBC AND DIFF (AUTO) Specimen Type: BLOOD No comment entered. Ordering Provider: MELI MICHEL Report Released Date/Time: May 03, 2023 09:13 AM Reporting Lab: [facility] [address] [address] Performing Lab: [facility] [address] [address] WBC 4.05 10*3/uL L 4.50-11.00 RBC 4.86 [...] the Encounter. The data comes from all [place] treatment facilities. Date/Time Radiology Report Provider Source Dec 02, 2023 11:00 AM BONE DENSITY DXA: WAYNEOrestesPETTY [id number] -[id number] M Ex Date: DEC 02, 2023@11:00 Req Phys: BALTA MICHEL Pat Loc: CWM/SO/PACT 9 (Req'g Loc) Img Loc: [facility]/BUILDING 1 Service: Unknown [place] [facility] [facility] [place] [address] (Case 181 COMPLETE) BONE DENSITY AXIAL-DXA (RAD Detailed) CPT:78338 Reason for Study: Screen Clinical History: Report Status: Verified Date Reported: DEC 02, 2023 Date Verified: DEC 02, 2023 Dredge Pipeman E-Sig:/ES/MOLLY Boateng LOCKWOOD JR Report: Study: DEXA [...] than 127 lbs., or smoking). 6. The [place] [employer] recommends pharmacologic therapy for [...] Foundation recommendations can be found in http://www.nof.org/hcp/pra ctice/fjfihbbx-xne-ufqqcwl l-guidelines/ clinicians-guide. All treatment decisions require clinical [...] treatment guidelines: National Osteoporosis Foundation https://www.nof.org/tisha donald/diagnosis-information/b yse-glonrgm-w amtesting/ International Osteoporosis Foundation https://www.iofbonehealth. org/ International Society for Clinical Densitometry https://www.iscd.org/patie nt-information/ FRAX(R) Fracture Risk Assessment Tool https://www.varun.ac.u k/FRAX/ Primary Diagnostic Code: No immediate attention required Primary Interpreting Staff: MOLLY LOCKWOOD JR, Radiologist (Dredge Pipeman) /MOLLY BLAS JR [place] [facility] [place] [facility] Encounter Notes: All associated encounter notes This section contains the clinical notes associated to the Encounter. Date/Time Encounter Note(s) Provider Source Nov 16, 2023 08:00 AM PRIMARY CARE SECUR E MESSAGING: LOCAL TITLE: PRIMARY CARE SECURE MESSAGING STANDARD TITLE: PRIMARY CARE SECURE MESSAGING DATE OF NOTE: NOV 16, 2023@08:00 ENTRY DATE: NOV 16, 2023@09:00:19 AUTHOR: GABRIELA HEAD EXP COSIGNER: URGENCY: STATUS: COMPLETED ------Original Message ------- Sent: 11/16/2023 09:00 AM ET From: GABRIELA HEAD To: PETTY GIRALDO Subject: General:Weight loss Good Morning Mr. Giraldo, Your clinically indicated date for your weight loss appointment to be scheduled is by 12/02/2023. If you don't receive an appt. by that date please reach back out to your PACT team. Thank you, Gabriela /lili/ DESIREE HAWKINS,RN-BC REGISTERED NURSE (RN) Signed: 11/16/2023 09:00 GABRIELA HEAD [place] [facility] [place] [facility] Nov 15, 2023 12:45 PM ADDENDUM: LOCAL TITLE: Addendum STANDARD TITLE: ADDENDUM DATE OF NOTE: NOV 15, 2023@12:45:01 ENTRY DATE: NOV 15, 2023@12:45:01 AUTHOR: JACQUELYN IVY EXP COSIGNER: URGENCY: STATUS: COMPLETED forwarding to PACT RN to address when available /DESIREE Bentley RN-CHAI REGISTERED NURSE Signed: 11/15/2023 12:45 Receipt Acknowledged By: 11/16/2023 09:00 /DESIREE Henderson,RN-CHAI REGISTERED NURSE (RN) ====== --- Original Document --- 11/15/23 PRIMARY CARE SECURE MESSAGING: ------Original Message ------- Sent: 11/15/2023 09:25 AM ET From: PETTY GIRALDO To: Kilo MICHEL_PRIMARY CARE_SPOPC Subject: General:Weight loss I have not heard from the recommended weight loss program. /lili/ MAYA NAVARRO Signed: 11/15/2023 10:16 Receipt Acknowledged By: * AWAITING SIGNATURE * ELMAYDA 11/15/2023 12:44 /lili/ DESIREE MEDINA RN-BC REGISTERED NURSE for GABRIELA HEAD 11/16/2023 ADDENDUM STATUS: COMPLETED Replied to vet via secure messaging. /lili/ DESIREE HAWKINS,RN-BC REGISTERED NURSE (RN) Signed: 11/16/2023 09:01 JACQUELYN IVY [facility] Nov 15, 2023 09:16 AM PRIMARY CARE SECUR E MESSAGING: LOCAL TITLE: PRIMARY CARE SECURE MESSAGING STANDARD TITLE: PRIMARY CARE SECURE MESSAGING DATE OF NOTE: NOV 15, 2023@09:16 ENTRY DATE: NOV 15, 2023@10:16:43 AUTHOR: MAYA MUÑOZ EXP COSIGNER: URGENCY: STATUS: COMPLETED PRIMARY CARE SECURE MESSAGING Has ADDENDA ------Original Message ------- Sent: 11/15/2023 09:25 AM ET From: PETTY GIRALDO To: Kilo MICHEL_PRIMARY CARE_SPOPC Subject: General:Weight loss I have not heard from the recommended weight loss program. /lili/ MAYA NAVARRO Signed: 11/15/2023 10:16 Receipt Acknowledged By: 11/16/2023 13:38 /es/ BLAYNE GAR LPN LPN for MAYDA EL 11/15/2023 12:44 /lili/ DESIREE MEDINA RN-BC REGISTERED NURSE for GABRIELA HEAD 11/15/2023 ADDENDUM STATUS: COMPLETED forwarding to PACT RN to address when available /lili/ DESIREE MEDINA RN-BC REGISTERED NURSE Signed: 11/15/2023 12:45 Receipt Acknowledged By: 11/16/2023 09:00 /lili/ DESIREE HAWKINS,RN-BC REGISTERED NURSE (RN) 11/16/2023 ADDENDUM STATUS: COMPLETED Replied to vet via secure messaging. /lili/ DESIREE HAWKINS,RN-BC REGISTERED NURSE (RN) Signed: 11/16/2023 09:01 MAYA MUÑOZ CNTRL [facility]
--- OUTSIDE RECORDS SUMMARY | 2024-03-23 01:15 | XMS_ITS ---
Author Name [facility] [place] [facility] [place] Address [address] [place] [address] Care Team Providers Care Business Office Specialist Name Role Phone BALTA MICHEL Primary Care [...] Ortiz's Name Patient's Relationship to Policy Ortiz ELIASBETH BCBS OF [place] (BLUECARD) MEDICARE SUPPLEMEN KATHRYN PSUED O MEDEX BRONZ E Apr 12, 2014 [id number] LOREN, OMAS PATIENT [place] MED[place] SUPPLEMEN KATHRYN MEDEX BRONZ E Mar 12, 2013 [id number] ALLI, [place] PAT[place] SU[place] KATHRYN MEDEX BRONZ E Mar 12, 2013 [id number] [phone] ALLI,BENITO OMAS PATIENT MEDICARE (WNR) MEDICARE (M) PART A Feb 10, 2013 PART A [id number] TX12 BENITO CARSON PATIENT MEDICARE (WNR) MEDICARE (M) PART B Feb 10, 2013 PART B [id number] TX12 [phone] BENITO CARSON PATIENT MEDICARE (WNR) MEDICARE (M) PART A Feb 10, 2013 PART A [id number] TX12 [phone] BENITO CARSON PATIENT MEDICARE (WNR) MEDICARE (M) PART B Feb 10, 2013 PART B [id number] TX12 [phone] BENITO CARSON PATIENT Selected Encounter This section includes the information on record at [place] for the Encounter. Date/Time Encounter Type Encounter Description Reason Pro vider Source Nov 15, 2023 08:24 AM Outpatient Encounter PRIMARY CARE/MEDICINE IHE Encounter Template Text not used by [place] Plan of Treatment: Future Appointments (+ 6 [...] 2023 11:00 AM [facility] Dec 09, 2023 11:00 AM [facility] Dec 21, 2023 10:00 AM [facility]BULAT[facility] - [facility]ICINE [facility] ([facility] Dec 28, 2023 10:00 AM AMBULATORY - MEDICINE [facility] (631GE) Jan 04, 2024 10:00 AM [facility] Jan 06, 2024 11:00 AM AMBULATORY - PS[facility]CHIATRY [facility] Jan 11, 2024 10:00 AM AMBULATORY - NONE [place] [facility] [place] [facility] Feb 10, 2024 11:00 AM AMBULATORY - PS[facility]IATRY [facility] Mar 16, 2024 10:00 AM AMBULATORY - PS[facility]IATRY [facility] Apr 20, 2024 11:00 AM AMBULATORY - PS[facility]CHIATRY [facility] Active, Pending, and Scheduled Orders This section includes a listing of several types of active, pending, and scheduled orders, including clinic medications orders, diagnostic test orders, procedure orders and consult orders; where the start date of the order is 45 days before the date of the Encounter or 45 days after the date of theEncounter. The data comes from all [place] treatment facilities. Test Date/Time Test Type Test Details Facility Name Oct 21, 2023 12:00 AM Laboratory - Chemi stry Order CBC AND DIFF (AUTO) BLOOD (LAV-BLOOD) [facility] Lab Results: +/- 30 days of the encounter This section includes the Chemistry and Hematology Lab Results on record with [place] for the patient. Radiology Reports and Pathology Reports are provided separately, in subsequent sections. Lab Results This section contains the Chemistry/Hematology Results that were resulted 30 days before or 30 daysafter the date of the Encounter. Date/Time Source Result Type Result - Unit Interpretation Reference Range Comment Nov 01, 2023 12:23 PM [facility] VITAMIN D 25-OH (Therapy monitor) Specimen Type: [...] For additional information, please refer to http://education .Behind the Burner.[employer] International/faq/SXD089 (This link is being provided for informational/ educational purposes only.) This test was developed and its analytical performance characteristics have been determined by [facility] [place], [place]. It has not been cleared or approved by the U.S. Food and Drug Administration. This assay has been validated pursuant to the CLIA regulations and is used for clinical purposes. This test was developed and its analytical performance characteristics have been determined by [place]. It has not been cleared or approved by the U.S. Food and Drug Administration. This assay has been validated pursuant to the CLIA regulations and is used for clinical purposes. Test Performed by [facility], [address] [place], [place] Mike Porter M.D., Ph.D., Director of Laboratories , CLIA [id number] TEST PERFORMED AT: , Ordering Provider: MELI MICHEL Report Released Date/Time: Nov 01, 2023 11:43 AM Reporting Lab: [facility] [place] [facility] [address] [facility] [address] Performing Lab: [facility] [address] [address] VITAMIN D, 25-OH, TOTAL 61 ng/mL 30-100 VITAMIN D, 25-OH, D3 61 ng/mL VITAMIN D, 25-OH, D2 <4 ng/mL Nov 01, 2023 12:23 PM [facility] MAGNESIUM Specimen Type: SERUM No comment entered. Ordering Provider: MELI MICHEL LISA Report Released Date/Time: Nov 01, 2023 11:43 AM Reporting Lab: [facility] [address] [facility] [address] Performing Lab: [facility] [address] [facility] [address] MAGNESIUM 2.1 mg/dL 1.6-2.6 Nov 01, 2023 12:23 PM [facility] CALCIUM Specimen Type: SERUM No comment entered. Ordering Provider: MELI MICHEL LISA Report Released Date/Time: Nov 01, 2023 11:43 AM Reporting Lab: [facility] [place] [facility] [address] [facility] [address] Performing Lab: [facility] [address] [address] CALCIUM 8.8 mg/dL 8.5-10.2 Oct 28, 2023 12:08 PM [facility] FOLATE (WROX) Specimen Type: SERUM No comment entered. Ordering Provider: MELI MICHEL LISA Report Released Date/Time: Oct 21, 2023 02:23 PM Reporting Lab: [facility] [place] [facility] [address] [facility] [address] Performing Lab: [place] [facility] [place] [facility] [address] [facility] [address] FOLATE (WROX) >20.00 ng/mL >5.2 Oct 28, 2023 12:08 PM [facility] FERRITIN Specimen Type: SERUM No comment entered. Ordering Provider: MELI MICHEL LISA Report Released Date/Time: Oct 21, 2023 02:23 PM Reporting Lab: [facility] [place] [facility] [address] [facility] [address] Performing Lab: [facility] [address] [facility] [address] FERRITIN 84 ng/mL 20-300 Oct 28, 2023 12:08 PM [facility] VITAMIN B12 Specimen Type: SERUM No comment entered. Ordering Provider: MELI MICHEL Report Released Date/Time: Oct 21, 2023 02:23 PM Reporting Lab: [facility] [address] [facility] [address] Performing Lab: [facility] [address] [facility] [address] VITAMIN B12 571 pg/mL 200-900 Oct 28, 2023 12:08 PM [facility] IRON & TIBC PANEL Specimen Type: SERUM No comment entered. Ordering Provider: MELI MICHEL LISA Report Released Date/Time: Oct 21, 2023 02:23 PM Reporting Lab: [facility] [address] [facility] [address] Performing Lab: [facility] [address] [facility] [address] TIBC 347 ug/dL 204-475 IRON 101 ug/dL 40-160 Transferrin Saturation 29.1 20.0-50.0 Oct 28, 2023 12:06 PM [facility] HEMOGLOBIN A1C PANEL Specimen [...] May 03, 2023 09:13 AM Reporting Lab: [facility] [address] [facility] [address] Performing Lab: [address] [address] HEMOGLOBIN A1C 5.3 4.0-5.6 Oct 28, 2023 12:06 PM [facility] LIPID PANEL FASTING Specimen Type: SERUM No comment entered. Ordering Provider: MELI MICHEL Report Released Date/Time: May 03, 2023 09:13 AM Reporting Lab: [facility] [address] [facility] [address] Performing Lab: [facility] [address] [facility] [address] CHOLESTEROL 91 mg/dL TRIGLYCERIDE 84 mg/dL 0-150 LDL calculated 28 mg/dL 0-129 CHOL/HDL 2.0 HDL CHOLESTEROL 46 mg/dL 40-60 Oct 28, 2023 12:06 PM [facility] LIVER FUNCTION Specimen Type: SERUM No comment entered. Ordering Provider: MELI MICHEL Report Released Date/Time: May 03, 2023 09:13 AM Reporting Lab: [facility] [address] [facility] [address] Performing Lab: [address] [address] PROTEIN,TOTAL 6.9 g/dL 6.0-8.3 ALBUMIN 4.0 g/dL 3.5-5.0 ALKALINE PHOSPHATASE 132 U/L 40-150 AST 32 U/L 5-34 ALT 35 U/L BILIRUBIN, TOTAL 1.0 mg/dL 0.2-1.2 Oct 28, 2023 12:06 PM [facility] BASIC METABOLIC PANEL (fasting) Specimen Type: SERUM No comment entered. Ordering Provider: MELI MICHEL Report Released Date/Time: May 03, 2023 09:13 AM Reporting Lab: [facility] [address] [facility] [address] Performing Lab: [facility] [address] [facility] [address] UREA NITROGEN 30 mg/dL H 7-25 GLUCOSE 100 mg/dL 65-100 SODIUM 137 mmol/L 135-145 POTASSIUM 4.1 mmol/L 3.5-5.0 CHLORIDE 103 mmol/L 100-110 CO2 24 meq/L 20-30 CREATININE, Serum 1.09 mg/dL 0.50-1.40 eGFR(CKD-EPI 2020) 70 mL/min >60 Oct 28, 2023 12:06 PM [facility] TSH Specimen Type: SERUM No comment entered. Ordering Provider: MELI MICHEL Report Released Date/Time: May 03, 2023 09:13 AM Reporting Lab: [facility] [address] [facility] [address] Performing Lab: [facility] [address] [facility] [address] TSH 1.59 u[IU]/mL 0.35-5.00 Oct 28, 2023 12:06 PM [facility] CBC AND DIFF (AUTO) Specimen Type: BLOOD No comment entered. Ordering Provider: MELI MICHEL Report Released Date/Time: May 03, 2023 09:13 AM Reporting Lab: [facility] [address] [facility] [address] Performing Lab: [facility] [address] [facility] [address] WBC 4.05 10*3/uL L 4.50-11.00 RBC 4.86 [...] 2023 11:00 AM BONE DENSITY DXA: WAYNEOrestesPETTY [id number] -[id number] M Ex Date: DEC 02, 2023@11:00 Req Phys: BALTA MICHEL Pat Loc: CWM/SO/PACT 9 (Req'g Loc) Img Loc: [facility]BUILDING 1 Service: Unknown [place] [facility] [place] [address] (Case 181 COMPLETE) BONE DENSITY AXIAL-DXA (RAD Detailed) CPT:33511 Reason for Study: Screen Clinical History: Report Status: Verified Date Reported: DEC 02, 2023 Date Verified: DEC 02, 2023 Patient Educator E-Sig:/ES/MOLLY Boateng LOCKWOOD JR Report: Study: DEXA [...] than 127 lbs., or smoking). 6. The [place] [employer]umat[employer] recommends pharmacologic therapy for [...] Foundation recommendations can be found in http://www.nof.org/hcp/pra ctice/zjhhypmg-pyx-wbgxdyg l-guidelines/ clinicians-guide. All treatment decisions require clinical [...] treatment guidelines: National Osteoporosis Foundation https://www.nof.org/tisha donald/diagnosis-information/b rwf-kolbzjx-t amtesting/ International Osteoporosis Foundation https://www.iofbonehealth. org/ International Society for Clinical Densitometry https://www.iscd.org/patie nt-information/ FRAX(R) Fracture Risk Assessment Tool https://www.varun.ac.u k/FRAX/ Primary Diagnostic Code: No immediate attention required Primary Interpreting Staff: MOLLY LOCKWOOD JR, Radiologist (Patient Educator) /MOLLY BLAS JR [place] [facility] [place] [facility] Encounter Notes: All associated encounter notes This section contains the clinical notes associated to the Encounter. Date/Time Encounter Note(s) Provider Source Nov 15, 2023 08:24 AM PRIMARY CARE SECUR E MESSAGING: LOCAL TITLE: PRIMARY CARE SECURE MESSAGING STANDARD TITLE: PRIMARY CARE SECURE MESSAGING DATE OF NOTE: NOV 15, 2023@08:24 ENTRY DATE: NOV 15, 2023@09:24:20 AUTHOR: MAYA MUÑOZ EXP COSIGNER: URGENCY: STATUS: COMPLETED ------Original Message ----- Sent: 11/15/2023 09:22 AM ET From: PETTY CARSON To: Kilo MICHEL_PRIMARY CARE_[facility] Subject: Medication:refil EZETIMIBE 10MG TAB Please refill () EZETIMIBE 10MG TAB. Thank you. /lili/ MAYA NAVARRO Signed: 11/15/2023 09:24 Receipt Acknowledged By: 11/15/2023 15:21 /es/ BLAYNE GAR LPN OXYGEN EQUIPMENT PREPARER for MAYDA GALLEGOS 11/15/2023 10:44 /es/ ANNALISA MEDINAN RN-BC REGISTERED NURSE for MAYA [facility]
--- OUTSIDE RECORDS SUMMARY | 2024-03-23 01:16 | XMS_ITS | Encounter Summary ---
Author Name [facility] [place] Address [address] [place] [address] Care Team Providers Care Volunteer Recruitment Coordinator Name Role Phone BALTA MICHEL Primary Care [...] O MEDEX BRONZ E Apr 12, 2014 [id number] WILUSZ,TH OM[place] PATIENT [place] SUPPLEMEN KATHRYN MEDEX BRONZ E Mar 12, 2013 [id number] [phone] WILZ,TH [place] KATHRYN MEDEX BRONZ E Mar 12, 2013 [id number] WILLOREN,TH OMAS PATIENT MEDICARE (WNR) MEDICARE (M) PART B Feb 10, 2013 PART B [id number] [id number] BENITO CARSON PATIENT MEDICARE (WNR) MEDICARE (M) PART A Feb 10, 2013 PART A [id number] [id number] BENITO CARSON PATIENT MEDICARE (WNR) MEDICARE (M) PART A Feb 10, 2013 PART A [id number] TX12 [phone] BENIOT CARSON PATIENT MEDICARE (WNR) MEDICARE (M) PART B Feb 10, 2013 PART B [id number] TX12 BENITO CARSON PATIENT Selected Encounter This section includes the information on record at [place] for the Encounter. Date/Time Encounter Type Encounter Description Reason Pro vider Source Jan 04, 2024 10:00 AM Outpatient Encounter [facility] TREATMENT IHE Encounter Template Text not used by [...] Date/Time Appointment Type Appointme nt Facility Name Jan 06, 2024 11:00 AM AMBULATORY - PSYCHIATRY [facility] Jan 11, 2024 10:00 AM AMBULATORY - NONE [place] [facility] [place] [facility] Feb 10, 2024 11:00 AM AMBULATORY - PSYCHIATRY [facility] Mar 16, 2024 10:00 AM AMBULATORY - PSYCHIATRY [facility] Apr 20, 2024 11:00 AM AMBULATORY - PSYCHIATRY [facility] Encounter Notes: All associated encounter notes This section contains the clinical notes associated to the Encounter. Date/Time Encounter Note(s) Provider Source Jan 04, 2024 01:09 PM CLERICAL NOTE: LOCAL TITLE: APPOINTMENT NO SHOW STANDARD TITLE: CLERICAL NOTE DATE OF NOTE: JAN 04, 2024@13:09 ENTRY DATE: JAN 04, 2024@13:09:15 AUTHOR: YONY JORDAN COSIGNER: URGENCY: STATUS: COMPLETED Patient Name: PETTY CARSON Patient SSN: [id number] Date and time of Appointment No show : 01/04/24 10:00 PATIENT PHONE - PHONE NUMBER [CELLULAR] - Patient's medical record was reviewed. Follow-up actions were determined and initiated: Please check/complete as applies: [X]Telephoned Directly [ ]Re-scheduled for next available appt [X]Sent a N0-show letter ( must call for appointment) [ ]Other (Emergent/Overbook, etc.): Additional Comments: Future Clinic Visits 01/06/2024 11:00 CWM/SO/MHC/LUIS /es/ YONY JORDAN NUT ORCHARDIST Signed: 01/04/2024 13:09 YONY JORDAN [facility] ([id number]) Jan 04, 2024 01:09 PM LETTERS: LOCAL TITLE: PATIENT LETTER (B) STANDARD TITLE: LETTERS DATE OF NOTE: JAN 04, 2024@13:09 ENTRY DATE: JAN 04, 2024@13:10 AUTHOR: YONY JORDAN EXP COSIGNER: URGENCY: STATUS: COMPLETED [facility] Toll Free Number [facility] scheduling can be reached at ext. [phone] [facility]- ext. [phone] [facility]- ext. [phone] [facility]- ext. [phone] JAN 04, 2024 PETTY CARSON [address] [place] [id number] Dear PETTY CARSON We are sorry that you were unable to keep the following appointment at the [facility] on: Date/Time: Jan 04, 2024@10:00 [facility]: CWM/WO/VVC/HYPNOSIS GRP Location: [address] [place] [address] Telephone Ext.: [phone] Your healthcare needs are important to us. You may reach us at the phone number listed above to reschedule. We look forward to hearing from you and we thank you for your service. Respectfully, Primary Care Services [id number]
--- OUTSIDE RECORDS SUMMARY | 2024-03-23 01:16 | XMS_ITS | Encounter Summary ---
Author Name [facility] [place] Organization [place] Address [address] [place] [address] Care Team Providers Care Larriman Helper Name Role Phone BALTA MICHEL Primary Care [...] O MEDEX BRONZ E Apr 12, 2014 [id number] WILLOREN, OM[place] PATIENT [place] MED[place]ARE SUPPLEMEN KATHRYN MEDEX BRONZ E Mar 12, 2013 [id number] WILLOREN, [place] MED[place] SUPPLEMEN KATHRYN MEDEX BRONZ E Mar 12, 2013 [id number] ALLI,BENITO OMAS PATIENT MEDICARE (WNR) MEDICARE (M) PART B Feb 10, 2013 PART B [id number] TX12 BENITO CARSON PATIENT MEDICARE (WNR) MEDICARE (M) PART A Feb 10, 2013 PART A [id number] TX12 BENITO CARSON PATIENT MEDICARE (WNR) MEDICARE (M) PART A Feb 10, 2013 PART A [id number] TX12 [phone] BENITO CARSON PATIENT MEDICARE (WNR) MEDICARE (M) PART B Feb 10, 2013 PART B [id number] TX12 BENITO CARSON PATIENT Selected Encounter This section includes the information on record at [place] for the Encounter. Date/Time Encounter Type Encounter Description Reason Pro vider Source Dec 09, 2023 03:37 PM Outpatient Encounter PRIMARY CARE/MEDICINE IHE Encounter Template Text not used by [place] Plan of Treatment: Future Appointments (+ 6 months) and Future Tests (+/- 45 days) The Plan of Treatment section includes future care activities for the patient from all [place] [facility]. This section includes future appointments and future [...] 21, 2023 10:00 AM AMBULATORY - MEDICINE [facility] (631GE) Dec 28, 2023 10:00 AM AMBULATORY MEDICINE [facility] (631GE) Jan 04, 2024 10:00 [facility] Jan 06, 2024 11:00 AM AMBULATORY - PSY[facility]IATRY [facility] Jan 11, 2024 10:00 AM [facility]UL[facility] Feb 10, 2024 11:00 AM AMBULATORY - PSYCHIATRY [facility] Mar 16, 2024 10:00 AM AMBULATORY - PSYCHIATRY [facility] Apr 20, 2024 11:00 [address]ORY [facility] Radiology Reports: +/- 30 days of [...] 11:00 AM BONE DENSITY DXA: PETTY CARSON [id number] -[id number] M Exm Date: DEC 02, 2023@11:00 Req Phys: MARILU,BALTA Pat Loc: CWM/SO/PACT 9 (Req'g Loc) Img Loc: [facility]BUILDING 1 Service: [place] [address] (Case 181 COMPLETE) BONE DENSITY AXIAL-DXA (RAD Detailed) CPT:76036 Reason for Study: Screen Clinical History: Report Status: Verified Date Reported: DEC 02, 2023 Date Verified: DEC 02, 2023 Bill Cutter E-Sig:/ES/MOLLY LOCKWOOD JR Report: Study: DEXA scan. [...] than 127 lbs., or smoking). 6. The [place] [employer] recommends pharmacologic therapy for [...] Foundation recommendations can be found in http://www.nof.org/hcp/pra allenice/xoiovdcp-akl-geutwdv l-guidelines/ clinicians-guide. All treatment decisions require clinical [...] treatment guidelines: National Osteoporosis Foundation https://www.nof.org/tisha ts/diagnosis-information/b fhx-pthflkl-g amtesting/ International Osteoporosis Foundation https://www.iofbonehealth. org/ International Society for Clinical Densitometry https://www.iscd.org/patie nt-information/ FRAX(R) Fracture Risk Assessment Tool https://www.varun.ac.u k/FRAX/ Primary Diagnostic Code: No immediate attention required Primary Interpreting Staff: MOLLY LOCKWOOD JR, Radiologist (Bill Cutter) /MOLLY BLAS JR [place] [facility] [place] [facility] Encounter Notes: All associated encounter notes This section contains the clinical notes associated to the Encounter. Date/Time Encounter Note(s) Provider Source Dec 09, 2023 03:37 PM MEDICATION MGT NOT E: LOCAL TITLE: OUTPATIENT MEDICATION REQUEST STANDARD TITLE: MEDICATION MGT NOTE DATE OF NOTE: DEC 09, 2023@15:37 ENTRY DATE: DEC 09, 2023@15:37:08 AUTHOR: MIGUEL HEAD EXP COSIGNER: URGENCY: STATUS: COMPLETED MAIL HYDROCHLOROTHIAZIDE TAB 25MG TAKE ONE TABLET BY MOUTH ONCE DAILY FOR HIGH BLOOD PRESSURE Quantity: 90 Refills: 3 Indication: FOR HIGH BLOOD PRESSURE /lili/ DESIREE HAWKINS,RN-BC REGISTERED NURSE (RN) Signed: 12/09/2023 15:37 Receipt Acknowledged By: 12/17/2023 15:49 /lili/ BALTA MICHEL MD PHYSICIAN MIGUEL HEAD
--- OUTSIDE RECORDS SUMMARY | 2024-03-23 01:16 | XMS_ITS | Encounter Summary ---
Author Name [facility] [place] [facility] [place] Address [address] [place] [address] Care Team Providers Care Procurement Inspector Name Role Phone BALTA MICHEL Primary Care [...] O MEDEX BRONZ E Apr 12, 2014 [id number] LOREN, [place] PATIENT [place] SU[place]MEN KATHRYN MEDEX BRONZ E Mar 12, 2013 [id number] ALLI, OM[place] PATIENT [place] KATHRYN MEDEX BRONZ E Mar 12, 2013 [id number] [phone] ALLI,BENITO OMAS PATIENT MEDICARE (WNR) MEDICARE (M) PART A Feb 10, 2013 PART A [id number] TX12 [phone] BENITO CARSON PATIENT MEDICARE (WNR) MEDICARE (M) PART B Feb 10, 2013 PART B [id number] TX12 BENITO CARSON PATIENT MEDICARE (WNR) MEDICARE (M) PART B Feb 10, 2013 PART B [id number] TX12 [phone] BENITO CARSON PATIENT MEDICARE (WNR) MEDICARE (M) PART A Feb 10, 2013 PART A [id number] TX12 BENITO CARSON PATIENT Selected Encounter This section includes the information on record at [place] for the Encounter. Date/Time Encounter Type Encounter Description Reason Pro vider Source Dec 30, 2023 12:10 PM Outpatient Encounter PRIMARY CARE/MEDICINE IHE Encounter Template Text not used by [place] Plan of Treatment: Future Appointments (+ 6 months) and Future Tests (+/- 45 days) The Plan of Treatment section includes future care activities for the patient [facility] [place] [facility] This section includes future appointments and future orders which are active, pending or scheduled. Future Appointments This section includes appointments that were scheduled to occur 6 months from the date of the Encounter, up to a maximum of 20 appointments. The data comes from all [facility] facilities. Appointment Date/Time Appointment Type Appointme nt Facility Name Jan 04, 2024 10:00 AM AMBULATORY - NONE [facility] Jan 06, 2024 11:00 AM AMBULATORY [facility] Jan 11, 2024 10:00 AM AMBULATORY [facility] Feb 10, 2024 11:00 AM AMBULATORY - PSYCHIATRY [facility] Mar 16, 2024 10:00 AM AMBULATORY [facility] Apr 20, 2024 11:00 AM AMBULATORY [facility] Radiology Reports: +/- 30 days of [...] the Encounter. The data comes from all [place] treatment facilities. Date/Time Radiology Report Provider Source Dec 02, 2023 11:00 AM BONE DENSITY DXA: PETTY CARSON [id number] -1950 M Exm Date: DEC 02, 2023@11:00 Req Phys: MARILU,BALTA Pat Loc: CWM/SO/PACT 9 (Req'g Loc) Img Loc: [facility]BUILD[facility] 1 Service: Unknown [place] [facility] [place] [address] (Case 181 COMPLETE) BONE DENSITY AXIAL-DXA (RAD Detailed) CPT:20131 Reason for Study: Screen Clinical History: Report Status: Verified Date Reported: DEC 02, 2023 Date Verified: DEC 02, 2023 Sales Systems Engineer E-Sig:/ES/MOLLY LOCKWOOD JR Report: Study: DEXA scan. [...] than 127 lbs., or smoking). 6. The [place] [employer] recommends pharmacologic therapy for [...] Foundation recommendations can be found in http://www.nof.org/hcp/pra allenice/nzdxvfwq-zpq-eirwsqg l-guidelines/ clinicians-guide. All treatment decisions require clinical judgment and consideration of individual factors including patient preferences, comorbidities, prior drug use, risk factors not captured in the FRAX model (e.g. sarcopenia, falls, vitamin D deficiency, increased bone turnover, interval significant decline in bone density) and possible under- or overestimation of fracture risk by FRAX. Useful resources regarding osteoporosis and treatment guidelines: National Osteoporosis Foundation https://www.nof.org/patien ts/diagnosis-information/b pnr-itaptrb-t amtesting/ International Osteoporosis Foundation https://www.iofbonehealth. org/ International Society for Clinical Densitometry https://www.iscd.org/patie nt-information/ FRAX(R) Fracture Risk Assessment Tool https://www.varun.ac.u k/FRAX/ Primary Diagnostic Code: No immediate attention required Primary Interpreting Staff: MOLLY LOCKWOOD JR, Radiologist (Sales Systems Engineer) /MOLLY BLAS JR [facility] Encounter Notes: All associated encounter notes This section contains the clinical notes associated to the Encounter. Date/Time Encounter Note(s) Provider Source Dec 30, 2023 12:10 PM PRIMARY CARE SECUR E MESSAGING: [facility] TITLE: PRIMARY CARE SECURE MESSAGING STANDARD TITLE: PRIMARY CARE SECURE MESSAGING DATE OF NOTE: DEC 30, 2023@12:10 ENTRY DATE: DEC 30, 2023@12:10:18 AUTHOR: MAYA MUÑOZ EXP COSIGNER: URGENCY: STATUS: COMPLETED ------Original Message ----- Sent: 12/30/2023 12:02 PM ET From: PETTY CARSON To: Kilo MICHEL_PRIMARY CARE_[facility] Subject: Medication:Crestor Please refill Crestor (ROSUVASTATIN CA 40MG TAB) prescription. /lili/ MAYA NAVARRO Signed: 12/30/2023 12:10 Receipt Acknowledged By: 12/31/2023 11:38 /es/ MAYDA GALLEGOS LPN LPN 12/30/2023 13:18 /lili/ DESIREE HAWKINS,RN-BC REGISTERED NURSE (RN) MAYA MUÑOZ [facility]
--- OUTSIDE RECORDS SUMMARY | 2024-03-23 01:16 | XMS_ITS | Encounter Summary ---
Author Name [facility] [place] [facility] [place] Address [address] [place] [address] Care Team Providers Care Metal Riveting Machine Operator Name Role Phone BALTA MICHEL Primary [...] O MEDEX BRONZ E Apr 12, 2014 [id number] WILLOREN,TH OMAS PATIENT [place] MEDICARE SUPPLEMEN KATHRYN MEDEX BRONZ E Mar 12, 2013 [id number] WILLOREN,TH OM[place] PATIENT [place] SUPP[place] KATHRYN MEDEX BRONZ E Mar 12, 2013 [id number] WILLOREN,TH OMAS PATIENT MEDICARE (WNR) MEDICARE (M) PART A Feb 10, 2013 PART A [id number] TX12 BENITO CARSON PATIENT MEDICARE (WNR) MEDICARE (M) PART B Feb 10, 2013 PART B [id number] TX12 BENITO CARSON PATIENT MEDICARE (WNR) MEDICARE (M) PART B Feb 10, 2013 PART B [id number] TX12 BENITO CARSON PATIENT MEDICARE (WNR) MEDICARE (M) PART A Feb 10, 2013 PART A [id number] TX12 [phone] BENITO CARSON PATIENT Selected Encounter This section includes the information on record at [place] for the Encounter. Date/Time Encounter Type Encounter Description Reason Provider Source Dec 28, 2023 10:00 AM HYPNOTHERAPY [facility] TREAT[facility] ICD-10-CM E66.9 Obesity, unspecified MARGARET VELASCO Mike Encounter Template Text not used by [place] Assessments - Encounter Diagnoses This section includes the primary and secondary diagnoses documented for the Encounter. Date/Time Primary/Secondary Diagnosis Diagnosis Name Provider Source Jan 23, 2024 06:16 AM PRIMARY Obesity, unspecified MARGARET VELASCO [facility] ([facility]) Jan 23, 2024 06:16 AM SECONDARY Post-traumatic stress disorder, chronic KRISTAMARGARET [facility] ([facility]) Plan of Treatment: Future Appointments (+ 6 [...] 04, 2024 10:00 AM AMBULATORY - NONE [facility] Jan 06, 2024 11:00 AM AMBULATORY - PSYCHIATRY [facility] Jan 11, 2024 10:00 AM [facility] Feb 10, 2024 11:00 AM AMBULATORY - PSYCHIATRY [facility] Mar 16, 2024 10:00 AM AMBULATORY - PSYCHIATRY [facility] Apr 20, 2024 11:00 AM AMBULATORY [facility]RY [facility] Radiology Reports: +/- 30 days of [...] the Encounter. The data comes from all [place] treatment facilities. Date/Time Radiology Report Provider Source Dec 02, 2023 11:00 AM BONE DENSITY DXA: PETTY CARSON [id number] -1950 M Exm Date: DEC 02, 2023@11:00 Req Phys: BALTA MICHEL Pat Loc: CWM/SO/PACT 9 (Req'g Loc) Img Loc: [facility]/BUILDING 1 Service: [place] [address] (Case 181 COMPLETE) BONE DENSITY AXIAL-DXA (RAD Detailed) CPT:24138 Reason for Study: Screen Clinical History: Report Status: Verified Date Reported: DEC 02, 2023 Date Verified: DEC 02, 2023 Reeling Machine Setup Operator E-Sig:/ES/MOLLY LOCKWOOD JR Report: Study: DEXA scan. [...] than 127 lbs., or smoking). 6. The [place] [employer] recommends pharmacologic therapy for [...] Foundation recommendations can be found in http://www.nof.org/hcp/pra ctice/hqbspbau-aia-trqnxtt l-guidelines/ clinicians-guide. All treatment decisions require clinical [...] treatment guidelines: National Osteoporosis Foundation https://www.nof.org/tisha ts/diagnosis-information/b jle-celjtpx-m amtesting/ International Osteoporosis Foundation https://www.iofbonehealth. org/ International Society for Clinical Densitometry https://www.iscd.org/patie nt-information/ FRAX(R) Fracture Risk Assessment Tool https://www.varun.ac.u k/FRAX/ Primary Diagnostic Code: No immediate attention required Primary Interpreting Staff: MOLLY LOCKWOOD JR, Radiologist (Reeling Machine Setup Operator) /MOLLY BLAS JR [facility] Encounter Notes: All associated encounter notes This section contains the clinical notes associated to the Encounter. Date/Time Encounter Note(s) Provider Source Dec 28, 2023 10:00 AM [facility] NOTE: LOCAL TITLE: [facility] STANDARD TITLE: [facility] NOTE DATE OF NOTE: DEC 28, 2023@10:00 ENTRY DATE: DEC 28, 2023@12:26:42 AUTHOR: MARGARET VELASCO COSIGNER: URGENCY: STATUS: COMPLETED The [place] was provided with information on VVC and has given verbal consent to use group VVC services for their healthcare. The copy of the Group Telehealth Agreement has been mailed to the . The Telehealth Agreement was also reviewed in full at the start of this session. The 's location/emergency contact number were confirmed. The Emergency Call Relay Center ([id number]) was available. The visit was locked for security and privacy. identified with 2 identifiers: [x] Full Name [x] Address [facility] Facilitators: Margaret Velasco, PhD; Stephanie BaldwinEd, CAGS Date: 12/28/23 Diagnosis: Obesity, unspecified; PTSD, chronic CPT: 41848 and 38310, 01336 Time: 60 min REASON FOR ENCOUNTER: attended session 2 of 4 of the [facility]. SUMMARY OF SESSION: Group rules and [facility] etiquette were discussed. [place] orally consented to the [facility] telehealth agreement. Group purpose was discussed, including a pre-induction talk: Parcel Post Weigher provided psychoeducation about what clinical hypnosis is, the focused state of concentration, self- hypnosis, personalized suggestions, structure of session, possible side effects, clinical hypnosis as a tool, myths about hypnosis, and re-alerting. Discussed Veterans' weight management goals, and any progress or barriers to those goals. Reviewed practice of self-hypnosis using the Everloop[employer] channel, Stuff That Helps . Provided psychoeducation regarding label reading and the role it plays in weight management. Discussed home practice self-hypnosis videos and recommended practice. SUDS units were discussed as a way a can describe the amount of distress they are in before and after hypnosis practice. Set SMART goals. INTERVENTIONS (18 minutes): Induction: Peaceful place, general Deepener: Sensory details related to peaceful place Suggestions: Unpleasant effects from same old, same old road get further away, less guilt and shame related to same old, same old road, ability to see benefits of making healthy change on the road to healing and freedom, persistence to meet goals Imagery/Metaphor: Fork in the road, road to healing and freedom, road to same old, same old Post Hypnotic Suggestions: Self-hypnosis, feeling a sense of accomplishment, less bothered by stress and worries Guided Imagery: Seeing self 5 years in the future on the same old, same old road, seeing self 1 and 5 years in the future down the road to healing and freedom Cognitive Training: N/A Risk Assessment: No report or indication of thoughts, intent, or plan of harming self or others today. No imminent risk identified. MSE: [place] sounded alert, oriented, and engaged. Euthymic with appropriate affect expression; Concentration appeared WNL x3, no perceptual, behavioral or thought concerns reported or observed. IMPRESSIONS: [place] attended group and appeared to be engaged in hypnosis, with some technical difficulties. Reported he was alert prior to the end of the session. PLAN: 1. [place] will attend the next session of the [facility] via [facility] 2. will practice self-hypnosis and engage in health related goal. /lili/ Margaret Velasco, PhD Clinical Psychologist Signed: 12/28/2023 12:28 MARGARET VELASCO [facility] ([facility])
--- OUTSIDE RECORDS SUMMARY | 2024-03-23 01:16 | XMS_ITS | Encounter Summary ---
Author Name [facility] [place] Address [address] [place] [address] Care Team Providers Care Meat Sales And Storage Manager Name Role Phone BALTA MICHEL Primary [...] O MEDEX BRONZ E Apr 12, 2014 [id number] WILLOREN,TH OMAS PATIENT [place]BS [place] MEDICARE SUPPLEMEN KATHRYN MEDEX BRONZ E Mar 12, 2013 [id number] WILLOREN,TH OMAS PATIENT [place] MEDICARE SUPPLEMEN KATHRYN MEDEX BRONZ E Mar 12, 2013 [id number] WILLOREN,TH OMAS PATIENT MEDICARE (WNR) MEDICARE (M) PART A Feb 10, 2013 PART A [id number] TX12 BENITO CARSON PATIENT MEDICARE (WNR) MEDICARE (M) PART B Feb 10, 2013 PART B [id number] TX12 BENITO CARSON PATIENT MEDICARE (WNR) MEDICARE (M) PART A Feb 10, 2013 PART A [id number] TX12 BENITO CARSON PATIENT MEDICARE (WNR) MEDICARE (M) PART B Feb 10, 2013 PART B [id number] TX12 [phone] BENITO CARSON PATIENT Selected Encounter This section includes the information on record at [place] for the Encounter. Date/Time Encounter Type Encounter Description Reason Provider Source Dec 21, 2023 10:00 AM HYPNOTHERAPY [facility] TREATMENT ICD-10-CM E66.9 Obesity, unspecified MARGARET VELASCO Encounter Template Text not used by [place] Assessments - Encounter Diagnoses This section includes the primary and secondary diagnoses documented for the Encounter. Date/Time Primary/Secondary Diagnosis Diagnosis Name Provider Source Jan 03, 2024 07:38 AM PRIMARY Obesity, unspecified ELIL PRESTON [facility] ([facility]) Plan of Treatment: Future Appointments (+ [...] Appointment Type Appointme nt Facility Name Dec 28, 2023 10:00 AM AMBULATORY - MEDICINE [facility] ([facility]) Jan 04, 2024 10:00 AM AMBULATORY - NONE [facility] Jan 06, 2024 11:00 AM AMBULATORY - PSYCHIATRY [facility] Jan 11, 2024 10:00 [facility] Feb 10, 2024 11:00 AM AMBULATORY - PSYCHIATRY [facility] Mar 16, 2024 10:00 AM AMBULATORY - PSYCHIATRY [facility] Apr 20, 2024 11:00 AM AMBULATORY - PSYCHIATRY [facility] Radiology Reports: +/- 30 days of [...] the Encounter. The data comes from all [place] treatment facilities. Date/Time Radiology Report Provider Source Dec 02, 2023 11:00 AM BONE DENSITY DXA: PETTY CARSON [id number] -1950 M Exm Date: DEC 02, 2023@11:00 Req Phys: BALTA MICHEL Pat Loc: CWM/SO/PACT 9 (Req'g Loc) Img Loc: [facility]/BUILDING 1 Service: [place] [address] (Case 181 COMPLETE) BONE DENSITY AXIAL-DXA (RAD Detailed) CPT:20245 Reason for Study: Screen Clinical History: Report Status: Verified Date Reported: DEC 02, 2023 Date Verified: DEC 02, 2023 [place] Measurer E-Sig:/ES/MOLLY LOCKWOOD JR Report: Study: DEXA scan. [...] than 127 lbs., or smoking). 6. The [place] [employer]umat[employer] recommends pharmacologic therapy for [...] Foundation recommendations can be found in http://www.nof.org/hcp/pra ctice/ofrwighb-vmj-xsemvvi l-guidelines/ clinicians-guide. All treatment decisions require clinical [...] treatment guidelines: National Osteoporosis Foundation https://www.nof.org/tisha ts/diagnosis-information/b vpq-htxpbeq-c amtesting/ International Osteoporosis Foundation https://www.iofbonehealth. org/ International Society for Clinical Densitometry https://www.iscd.org/patie nt-information/ FRAX(R) Fracture Risk Assessment Tool https://www.varun.ac.u k/FRAX/ Primary Diagnostic Code: No immediate attention required Primary Interpreting Staff: MOLLY LOCKWOOD JR, Radiologist ([place] Measurer) /MOLLY BLAS JR [facility] Encounter Notes: All associated encounter notes This section contains the clinical notes associated to the Encounter. Date/Time Encounter Note(s) Provider Source Dec 21, 2023 01:57 PM [facility] NOTE: LOCAL TITLE: [facility] STANDARD TITLE: [facility]IVE [facility] NOTE DATE OF NOTE: DEC 21, 2023@13:57 ENTRY DATE: DEC 21, 2023@13:57:47 AUTHOR: PASCUAL PRESTON COSIGNER: MARGARET VELASCO URGENCY: STATUS: COMPLETED [facility] Has ADDENDA SUPERVISION: This case is supervised by Margaret Velasco, PhD. This patient's assessment, diagnosis, treatment plan, and response to care are discussed in a standard weekly [60-minute, or more] individual supervision meeting. The was provided with information on VVC and has given verbal consent to use group VVC services for their healthcare. The copy of the Group Telehealth Agreement has been mailed to the [place]. The Telehealth Agreement was also reviewed in full at the start of this session. The [place] location/emergency contact number were confirmed. The Emergency Call Relay Center ([id number]) was available. The visit was locked for security and privacy. [place] identified with 2 identifiers: [x] Full Name [x] Address [facility] Facilitators: Margaret Velasco, PhD and Pascual Preston M.Ed., [facility] Date: 12/19/28 Diagnosis: Obesity,Unspec - Obesity, unspecified (ICD-10-CM E66.9) (Primary) CPT: 88983 and 85470, 82047 Time: 60 min REASON FOR ENCOUNTER: attended session 1 of 4 of the [facility] Weight Management Group. SUMMARY OF SESSION: Group rules and [facility] etiquette were discussed. orally consented to the [facility] telehealth agreement. Group purpose was discussed, including a pre-induction talk: Sales Representative Raw Fibers provided psychoeducation about what clinical hypnosis is, the focused state of concentration, self-hypnosis, personalized suggestions, structure of session, possible side effects, clinical hypnosis as a tool, myths about hypnosis, and re-alerting. Discussed Veterans' weight management goals, including their MAP, the benefits of making change, and barriers to change. Reviewed the hunger scale and optimal range being between 3- 7. Discussed home practice self-hypnosis videos and recommended practice. SUDS units were discussed as a way a can describe the amount of distress they are in before and after hypnosis practice. Set SMART goals. INTERVENTIONS: Induction: Eye fixation Deepener: PMR, countdown Suggestions: Listening to body's fullness signals, mindful eating, eating more slowly, use of hunger scale and staying within ideal range of hunger Imagery/Metaphor: Going over 7 on the hunger scale is like putting extra gas in a car as it would overflow and not be useful Post Hypnotic Suggestions: Self-hypnosis, feeling a sense of accomplishment, less bothered by stress and worries Guided Imagery: N/A Risk Assessment: No report or indication of thoughts, intent, or plan of harming self or others today. No imminent risk identified. MSE: sounded alert, oriented, and engaged. Euthymic with appropriate affect expression; Concentration appeared WNL x3, no perceptual, behavioral or thought concerns reported or observed. IMPRESSIONS: was present and observed engaging in the exercise. He [place]. PLAN: 1. [place] will attend the next session of the [facility] via [facility] 2. will practice self-hypnosis and engage in health related goal. /lili/ PASCUAL PRESTON MEd Inspector Machined Parts Signed: 12/21/2023 14:52 /lili/ Margaret Velasco, PhD Clinical Psychologist Cosigned: 12/22/2023 08:28 12/22/2023 ADDENDUM STATUS: COMPLETED I have reviewed this case and concur with the clinical impressions and recommendations made by this trainee who is under my clinical supervision. /lili/ Margaret Velasco, Clinical Psychologist Signed: 12/22/2023 08:[address] [facility] (6[facility]) Dec 21, 2023 10:00 AM CONSULT: LOCAL TITLE: CONSULT REPORT/HYPNOSIS STANDARD TITLE: CONSULT DATE OF NOTE: DEC 21, 2023@10:00 ENTRY DATE: DEC 22, 2023@08:28:54 AUTHOR: MARGARET VELASCO COSIGNER: URGENCY: STATUS: COMPLETED Consult completed. See [facility] Note dated 12/21/23 by Pascual Preston M.Ed., [facility]. /lili/ Margaret Velasco PhD Clinical Psychologist Signed: 12/22/2023 08:[address] [facility] ([facility])
--- OUTSIDE RECORDS SUMMARY | 2024-03-23 01:16 | XMS_ITS | Encounter Summary ---
Author Name [facility] [place] [facility] [place] Address [address] [place] [address] Care Team Providers Care Booth Manager Name Role Phone BALTA MICHEL Primary [...] O MEDEX BRONZ E Apr 12, 2014 [id number] LOREN, OM[place] PATIENT [place] MEDICARE SUPPLEMEN KATHRYN MEDEX BRONZ E Mar 12, 2013 [id number] [phone] ALLI, [place] KATHRYN MEDEX BRONZ E Mar 12, 2013 [id number] [phone] ALLI,BENITO OMAS PATIENT MEDICARE (WNR) MEDICARE (M) PART A Feb 10, 2013 PART A [id number] TX12 [phone] BENITO CARSON PATIENT MEDICARE (WNR) MEDICARE (M) PART B Feb 10, 2013 PART B [id number] TX12 EBNITO CARSON PATIENT MEDICARE (WNR) MEDICARE (M) PART A Feb 10, 2013 PART A [id number] TX12 [phone] BENITO CARSON PATIENT MEDICARE (WNR) MEDICARE (M) PART B Feb 10, 2013 PART B [id number] TX12 BENITO CARSON PATIENT Selected Encounter This section includes the information on record at [place] for the Encounter. Date/Time Encounter Type Encounter Description Reason Pro vider Source Dec 30, 2023 01:19 PM Outpatient Encounter PRIMARY CARE/MEDICINE IHE Encounter Template Text not used by [place] Plan of Treatment: Future Appointments (+ 6 months) and Future Tests (+/- 45 days) The Plan of Treatment section includes future care activities for the patient from all [place] [facility]. This section includes future appointments and future orders which are active, pending or scheduled. Future Appointments This section includes appointments that were scheduled to occur 6 months from the date of the Encounter, up to a maximum of 20 appointments. The data comes from all [facility] facilities. Appointment Date/Time Appointment Type Appointme nt Facility Name Jan 04, 2024 10:00 AM AMBULATORY - NONE [facility] Jan 06, 2024 11:00 AM AMBULATORY - PSYCHIATRY [facility] Jan 11, 2024 10:00 AM AMBULATORY [facility] Feb 10, 2024 11:00 AM AMBULATORY - PSYCHIATRY [facility] Mar 16, 2024 10:00 AM AMBULATORY PSYCHIATRY [facility] Apr 20, 2024 11:00 AM AMBULATORY [facility] Radiology Reports: +/- 30 days [...] 11:00 AM BONE DENSITY DXA: PETTY CARSON [id number] -[id number] M Exm Date: DEC 02, 2023@11:00 Req Phys: MARILU,BALTA Pat Loc: CWM/SO/PACT 9 (Req'g Loc) Img Loc: [facility]BUILDING 1 Service: Unknown [place] [facility] [place] [address] (Case 181 COMPLETE) BONE DENSITY AXIAL-DXA (RAD Detailed) CPT:39475 Reason for Study: Screen Clinical History: Report Status: Verified Date Reported: DEC 02, 2023 Date Verified: DEC 02, 2023 Independent Insurance Adjuster E-Sig:/ES/MOLLY LOCKWOOD JR Report: Study: DEXA scan. [...] than 127 lbs., or smoking). 6. The [place] [employer] recommends pharmacologic therapy for [...] Foundation recommendations can be found in http://www.nof.org/hcp/pra allenice/chjxzqnv-odq-kqorexa l-guidelines/ clinicians-guide. All treatment decisions require clinical [...] treatment guidelines: National Osteoporosis Foundation https://www.nof.org/patien ts/diagnosis-information/b ste-hvsxysh-f amtesting/ International Osteoporosis Foundation https://www.iofbonehealth. org/ International Society for Clinical Densitometry https://www.iscd.org/patie nt-information/ FRAX(R) Fracture Risk Assessment Tool https://www.varun.ac.u k/FRAX/ Primary Diagnostic Code: No immediate attention required Primary Interpreting Staff: MOLLY LOCKWOOD JR, Radiologist (Independent Insurance Adjuster) /MOLLY BLAS JR [place] [facility] [place] [facility] Encounter Notes: All associated encounter notes This section contains the clinical notes associated to the Encounter. Date/Time Encounter Note(s) Provider Source Dec 30, 2023 01:19 PM MEDICATION MGT NOT E: LOCAL TITLE: OUTPATIENT MEDICATION REQUEST STANDARD TITLE: MEDICATION MGT NOTE DATE OF NOTE: DEC 30, 2023@13:19 ENTRY DATE: DEC 30, 2023@13:19:30 AUTHOR: MIGUEL HEAD EXP COSIGNER: URGENCY: STATUS: COMPLETED MAIL ROSUVASTATIN TAB 40MG TAKE ONE TABLET BY MOUTH ONCE DAILY FOR CHOLESTEROL Quantity: 90 Refills: 3 Collection DT Spec LDL-c HDL TRIG TSH B12 SR- VIT D25 HIV Ag/ 10/28/2023 12:08 SERUM 571 10/28/2023 12:06 SERUM 1.59 10/28/2023 12:06 SERUM 28 46 84 04/28/2023 13:39 SERUM 31 41 57 2.38 07/20/2022 14:11 SERUM 77 16 L 147 2.82 95 H /lili/ DESIREE HAWKINS,RN-BC REGISTERED NURSE (RN) Signed: 12/30/2023 13:20 Receipt Acknowledged By: 02/22/2024 11:34 /lili/ BALTA MICHEL MD PHYSICIAN [place]
--- OUTSIDE RECORDS SUMMARY | 2024-03-23 01:16 | XMS_ITS | Encounter Summary ---
Author Name [facility] [place] [facility] [place] Address [address] [place] [address] Care Team Providers Care Loss Prevention Auditor Name Role Phone BALTA MICHEL Primary Care [...] O MEDEX BRONZ E Apr 12, 2014 [id number] LOREN, OM[place] PATIENT [place] MEDICARE SUPPLEMEN KATHRYN MEDEX BRONZ E Mar 12, 2013 [id number] [phone] ALLI, [place] PATIENT [place] SUPP[place] KATHRYN MEDEX BRONZ E Mar 12, 2013 [id number] [phone] ALLI,BENITO OM[place] PATIENT MEDICARE (WNR) MEDICARE (M) PART A Feb 10, 2013 PART A [id number] [id number] BENITO CARSON PATIENT MEDICARE (WNR) MEDICARE (M) PART B Feb 10, 2013 PART B [id number] TX12 [phone] BENITO CARSON PATIENT MEDICARE (WNR) MEDICARE (M) PART A Feb 10, 2013 PART A [id number] TX12 BENITO CARSON PATIENT MEDICARE (WNR) MEDICARE (M) PART B Feb 10, 2013 PART B [id number] TX12 [phone] BENITO CARSON PATIENT Selected Encounter This section includes the information on record at [place] for the Encounter. Date/Time Encounter Type Encounter Description Reason Pro vider Source Jan 06, 2024 11:55 AM Outpatient Encounter PRIMARY CARE/MEDICINE IHE Encounter [...] Appointment Type Appointme nt Facility Name Jan 11, 2024 10:00 AM AMBULATORY - NONE [place] [facility] [place] [facility] Feb 10, 2024 11:00 AM AMBULATORY - PSYCHIATRY [facility] Mar 16, 2024 10:00 AM AMBULATORY - PSYCHIATRY [facility] Apr 20, 2024 11:00 AM AMBULATORY - PSYCHIATRY [facility] Encounter Notes: All associated encounter notes This section contains the clinical notes associated to the Encounter. Date/Time Encounter Note(s) Provider Source Jan 06, 2024 11:55 AM PRIMARY CARE NOTE: LOCAL TITLE: WALK-IN NOTE PRIMARY CARE (T) STANDARD TITLE: PRIMARY CARE NOTE DATE OF NOTE: JAN 06, 2024@11:55 ENTRY DATE: JAN 06, 2024@11:55:24 AUTHOR: JESSICA MARSHALL EXP COSIGNER: URGENCY: STATUS: COMPLETED WALK-IN NOTE PRIMARY CARE (T) Has ADDENDA <====Click to Start Advanced Medical Support Reeders presents to the Primary Care clinic with the following request: [ ]Medication Renewal/Refill [ ]Consultation with Team RN [ ]Symptoms [ X ]Other The states they are: [ ]Waiting [ X ]Not Waiting No Walk in visit scheduled with PACT Nurse [ X ] At this encounter the Reeders's demographics were verified. [ ] At this encounter the 's Insurance information was verified. [ ] At this encounter the below scheduled visits for the Reeders were discussed and appointment reminder card was offered. Future appointments: 01/11/2024 10:00 CWM/WO/VVC/HYPNOSIS GRP Patient presents to clinic requesting to recieve the RSV vaccine Please advise patient by calling him at [phone] /lili/ FELIX MARSHALL Advanced Church Administrator Signed: 01/06/2024 11:56 Receipt Acknowledged By: 01/21/2024 08:47 /lili/ BALTA MICHEL MD PHYSICIAN 01/06/2024 13:42 /lili/ Kalyn Shelby RN Registered Nurse (RN) for MIGUEL HEAD 01/06/2024 ADDENDUM STATUS: COMPLETED Spoke with , advised that we do not have the new RSV vaccine, the one we have he received last year. Advised to call back in a week or 2 for an update. Reeders verbalized an understanding. /lili/ Kalyn Shelby RN Registered Nurse (RN) Signed: 01/06/2024 13:42 FELIX MARSHALL
--- OUTSIDE RECORDS SUMMARY | 2024-03-23 01:16 | XMS_ITS | Encounter Summary ---
Author Name [facility] [place] [facility] [place] [facility] [place] Address [address] [place] [address] Care Team Providers Care Assistant Media Planner Name Role Phone BALTA MICHEL Primary Care [...] O MEDEX BRONZ E Apr 12, 2014 [id number] LOREN, [place] PATIENT [place] KATHRYN MEDEX BRONZ E Mar 12, 2013 [id number] [phone] ALLI, [place] KATHRYN MEDEX BRONZ E Mar 12, 2013 [id number] ALLI,BENITO OMAS PATIENT MEDICARE (WNR) MEDICARE (M) PART A Feb 10, 2013 PART A [id number] TX12 BENITO CARSON PATIENT MEDICARE (WNR) MEDICARE (M) PART B Feb 10, 2013 PART B [id number] TX12 BENITO CARSON PATIENT MEDICARE (WNR) MEDICARE (M) PART A Feb 10, 2013 PART A [id number] TX12 BENITO CARSON PATIENT MEDICARE (WNR) MEDICARE (M) PART B Feb 10, 2013 PART B [id number] TX12 BENITO CARSON PATIENT Selected Encounter This section includes the information on record at [place] for the Encounter. Date/Time Encounter Type Encounter Description Reason Pro vider Source Dec 30, 2023 02:12 PM Outpatient Encounter PRIMARY CARE/MEDICINE IHE Encounter Template Text not used by [place] Plan of Treatment: Future Appointments (+ 6 months) and Future Tests (+/- 45 days) The Plan of Treatment section includes future care activities for the patient from all [place] [facility]. This section includes future appointments and future orders which are active, pending or scheduled. Future Appointments This section includes appointments that were scheduled to occur 6 months from the date of the Encounter, up to a maximum of 20 appointments. The data comes from all [facility] facilities. Appointment Date/Time Appointment Type Appointme nt Facility Name Jan 04, 2024 10:00 AM AMBULATORY - NONE [facility] Jan 06, 2024 11:00 AM AMBULATORY PS[facility]CHI[facility]RY [facility] Jan 11, 2024 10:00 AM AMBULATORY [facility] Feb 10, 2024 11:00 AM AMBULATORY - PS[facility]CHIATRY [facility] Mar 16, 2024 10:00 AM AMBULATORY [facility]RY [facility] Apr 20, 2024 11:00 AM AMBULATORY [facility] Radiology Reports: +/- 30 days [...] the Encounter. The data comes from all [place] treatment facilities. Date/Time Radiology Report Provider Source Dec 02, 2023 11:00 AM BONE DENSITY DXA: PETTY CARSON [id number] -[id number] M Exm Date: DEC 02, 2023@11:00 Req Phys: MARILU,BALTA Pat Loc: CWM/SO/PACT 9 (Req'g Loc) Img Loc: [facility]/BUILDING 1 Service: Unknown [place] [facility] [place] [address] (Case 181 COMPLETE) BONE DENSITY AXIAL-DXA (RAD Detailed) CPT:73285 Reason for Study: Screen Clinical History: Report Status: Verified Date Reported: DEC 02, 2023 Date Verified: DEC 02, 2023 Public Space Attendant E-Sig:/ES/MOLLY LOCKWOOD JR Report: Study: DEXA scan. [...] than 127 lbs., or smoking). 6. The [place] [employer] recommends pharmacologic therapy for [...] Foundation recommendations can be found in http://www.nof.org/hcp/pra allenice/ythbnhtq-iem-olbfrdk l-guidelines/ clinicians-guide. All treatment decisions require clinical [...] treatment guidelines: National Osteoporosis Foundation https://www.nof.org/tisha donald/diagnosis-information/b znr-ruiavrd-s amtesting/ International Osteoporosis Foundation https://www.iofbonehealth. org/ International Society for Clinical Densitometry https://www.iscd.org/patie nt-information/ FRAX(R) Fracture Risk Assessment Tool https://www.varun.ac.u k/FRAX/ Primary Diagnostic Code: No immediate attention required Primary Interpreting Staff: MOLLY LOCKWOOD JR, Radiologist (Public Space Attendant) /EAMOLLY PARKINSON JR [place] [facility] [place] [facility] Encounter Notes: All associated encounter notes This section contains the clinical notes associated to the Encounter. Date/Time Encounter Note(s) Provider Source Dec 30, 2023 02:12 PM PRIMARY CARE NOTE: LOCAL TITLE: WALK-IN NOTE PRIMARY CARE (T) STANDARD TITLE: PRIMARY CARE NOTE DATE OF NOTE: DEC 30, 2023@14:12 ENTRY DATE: DEC 30, 2023@14:12:40 AUTHOR: HARRISON MALHOTRA EXP COSIGNER: URGENCY: STATUS: COMPLETED <====Click to Start Advanced Medical Support presents to the Primary Care clinic with the following request: [ ]Medication Renewal/Refill [ ]Consultation with Team RN [ ]Symptoms [ X ]Other The Pavo states they are: [ ]Waiting [ X ]Not Waiting No Walk in visit scheduled with PACT Nurse [ X ] At this encounter the 's demographics were verified. [ X ] At this encounter the Pavo's Insurance information was verified. [ X ] At this encounter the below scheduled visits for the Pavo were discussed and appointment reminder card was offered. Future appointments: 01/04/2024 10:00 CWM/WO/VVC/HYPNOSIS GRP 01/06/2024 11:00 CWM/SO/MHC/LUIS Vet states he was given insoles about three years ago. Vet is looking for that information again so he can order another pair. /lili/ HARRISON NAVARRO Signed: 12/30/2023 14:15 Receipt Acknowledged By: 12/31/2023 12:03 /lili/ [facility]E [facility]YCHIATRIC NURSE HARRISON MALHOTRA [place]
--- OUTSIDE RECORDS SUMMARY | 2024-03-23 01:17 | XMS_ITS | Encounter Summary ---
Author Name [facility] [place] Address [address] [place] [address] Care Team Providers Care Science Technician Name Role Phone BALTA MICHEL Primary [...] O MEDEX BRONZ E Apr 12, 2014 [id number] WILLOREN, OM[place] PATIENT [place] MED[place] SUPPLEMEN KATHRYN MEDEX BRONZ E Mar 12, 2013 [id number] [phone] ALLI, [place] KATHRYN MEDEX BRONZ E Mar 12, 2013 [id number] [phone] 4 ALLI,BENITO OMAS PATIENT MEDICARE (WNR) MEDICARE (M) PART A Feb 10, 2013 PART A [id number] TX12 [phone] BENITO CARSON OMGUTIERREZ PATIENT MEDICARE (WNR) MEDICARE (M) PART B Feb 10, 2013 PART B [id number] TX12 BENITO CARSON PATIENT MEDICARE (WNR) MEDICARE (M) PART A Feb 10, 2013 PART A [id number] TX12 BENITO CARSON PATIENT MEDICARE (WNR) MEDICARE (M) PART B Feb 10, 2013 PART B [id number] TX12 BENITO CARSON PATIENT Selected Encounter This section includes the information on [place] at [place] for the Encounter. Date/Time Encounter Type Encounter Description Reason Provider Source Feb 09, 2024 09:47 AM OFF/OP EST AUGUST X REQ PHY/QHP PRIMARY CARE/MEDICINE ICD-10-CM Z23 Encounter for immunization BECCA GAR Mike Encounter Template Text not used by [place] Assessments - Encounter Diagnoses This section includes the primary and secondary diagnoses documented for the Encounter. Date/Time Primary/Secondary Diagnosis Diagnosis Name Provider Source Feb 20, 2024 12:22 PM PRIMARY Encounter for immunization BLAYNE GAR JACOBO Plan of Treatment: Future Appointments (+ 6 [...] Date/Time Appointment Type Appointme nt Facility Name Feb 10, 2024 11:00 AM AMBULATORY - PSYCHIATRY [facility] Mar 16, 2024 10:00 AM AMBULATORY [facility] Apr 20, 2024 11:[address]ORY [facility] [facility] Immunizations: All administered on the encounter date This section contains immunizations associated to the Encounter. Immunization Series Date Issued Reaction Comments COVID-19 (MODERNA), MRNA, LN P-S, PF, 50 MCG/0.5 ML (AGES 12+ YEARS) Feb 09, 2024 INFLUENZA, HIGH-DOSE, TRIVALENT, PF Feb 08 Social History: Smoking Status (Most current) and Tobacco Use (All prior to encounter date) This section includes the most current, and the historical, smoking and tobacco- related health factors from the [facility] where the Encounter took place. Current Smoking Status This section includes the most current smoking, or tobacco-related health factor, from the [facility] where the Encounter took place. Date/Time Current Smoking Status Comment [facility] Nov 01, 2023 11:00 AM VA-TOBACCO NEVER USED [facility] Tobacco Use History This section includes a history of the smoking, or tobacco-related health factors, that were collected on or before the date of the Encounter. The data comes from the [facility] where the Encounter took place. Date/Time Smoking Status/Tobacco Use Comment F acility Sep 29, 2022 10:30 AM VA-TOBACCO FORMER USER [facility] Sep 29, 2022 10:30 AM VA-TOBACCO QUIT 15 YRS OR MORE [facility] Jan 21, 2021 09:00 AM VA-TOBACCO NEVER USED [facility] Feb 14, 2020 01:00 PM VA-TOBACCO FORMER USER [facility] Feb 14, 2020 01:00 PM VA-TOBACCO QUIT 15 YRS OR MORE [facility] Jul 05, 2018 03:54 PM VA-TOBACCO FORMER USER [facility] Jul 05, 2018 03:54 PM VA-TOBACCO QUIT 15 YRS OR MORE [facility] May 19, 2017 01:01 PM QUIT TOBACCO USE > 7 YEARS AGO [facility] Apr 29, 2016 12:14 PM QUIT TOBACCO USE > 7 YEARS AGO Quit 20 years ago [facility] Mar 21, 2015 02:25 PM QUIT TOBACCO USE > 7 YEARS AGO [facility] May 03, 2012 12:04 PM QUIT TOBACCO USE > 7 YEARS AGO [facility] Encounter Notes: All associated encounter notes This section contains the clinical notes associated to the Encounter. Date/Time Encounter Note(s) Provider Source Feb 09, 2024 09:48 AM PREVENTIVE MEDICIN E NURSING NOTE: LOCAL TITLE: CLINICAL REMINDERS/NURSING STANDARD TITLE: PREVENTIVE MEDICINE NURSING NOTE DATE OF NOTE: FEB 09, 2024@09:48 ENTRY DATE: FEB 09, 2024@09:48:04 AUTHOR: BLAYNE GAR COSIGNER: URGENCY: STATUS: COMPLETED Influenza Immunization: Influenza, High-Dose, Trivalent, Preservative Free (Fluzone-Syringe) Administered: INFLUENZA, HIGH-DOSE, TRIVALENT, PF Date Administered: Feb 09, 2024 09:47 Humanities Instructor: SANOFI PASTEUR Lot: [id number] Exp Date: Oct 09, 2024 NDC: [id number] Admin Route/Site: INTRAMUSCULAR/LEFT DELTOID Dosage: 0.5mL Vaccine Information Statement(s): INFLUENZA(FLU) VACC(INACTIVATED OR RECOMBINANT)VIS Nov 15, 2020 (AFGHAN) Order By: Policy Administered By: Blayne Gar The Influenza Vaccine Information Statement (VIS) was reviewed with the patient/caregiver which lists the benefits and risks of the vaccine and the risks of not receiving the Influenza vaccine. The patient/caregiver denied any prior severe reaction to this vaccine or its components or a severe allergic reaction, such as anaphylaxis, to any vaccine or any injectable therapy. The patient/caregiver gave verbal consent to receive the vaccine. COVID-19 Immunization: Moderna Monovalent (Spikevax) Administered: COVID-19 (MODERNA), MRNA, LNP-S, PF, 50 MCG/0.5 ML (AGES 12 + YEARS) Date Administered: Feb 09, 2024 09:47 Humanities Instructor: Wanelo. Lot: [id number] Exp Date: September 01, 2024 NDC: [id number] Admin Route/Site: INTRAMUSCULAR/RIGHT DELTOID Dosage: .5mL Vaccine Information Statement(s): COVID-19 MRNA VACCINE (12+ YRS) VACCINE VIS Jan 28, 2023 (AFGHAN) Order By: Policy Administered By: Blayne Gar Vaccine administered without complications. /lili/ BLAYNE GAR LPN LPN Signed: 02/09/2024 09:55 BLAYNE GAR [facility]
--- OUTSIDE RECORDS SUMMARY | 2024-03-23 01:17 | XMS_ITS | Encounter Summary ---
Author Name [facility] [place] Address [address] [place] [address] Care Team Providers Care Real Estate Transaction Coordinator Name Role Phone BALTA MICHEL Primary [...] O MEDEX BRONZ E Apr 12, 2014 [id number] WILUSZ, [place] KATHRYN MEDEX BRONZ E Mar 12, 2013 [id number] WILZ,TH [place] KATHRYN MEDEX BRONZ E Mar 12, 2013 [id number] WILLOREN,TH OMAS PATIENT MEDICARE (WNR) MEDICARE (M) PART A Feb 10, 2013 PART A [id number] TX12 BENITO CARSON PATIENT MEDICARE (WNR) MEDICARE (M) PART B Feb 10, 2013 PART B [id number] TX12 BENITO CARSON PATIENT MEDICARE (WNR) MEDICARE (M) PART A Feb 10, 2013 PART A [id number] TX12 BENITO CARSON PATIENT MEDICARE (WNR) MEDICARE (M) PART B Feb 10, 2013 PART B [id number] TX12 BENITO CARSON PATIENT Selected Encounter This section includes the information on record at [place] for the Encounter. Date/Time Encounter Type Encounter Description Reason Provider Source Jan 06, 2024 11:00 AM PSYTX W PT 60 MINUTES [facility] - IND ICD-10-CM F43.12 Post-traumatic stress disorder, chronic SHANELL SMITH Mike Encounter Template Text not used by [place] Assessments - Encounter Diagnoses This section includes the primary and secondary diagnoses documented for the Encounter. Date/Time Primary/Secondary Diagnosis Diagnosis Name Provider Source Jan 06, 2024 12:56 PM PRIMARY Post-traumatic stress disorder, chronic SHANELL SMITH Jan 06, 2024 12:56 PM SECONDARY Major depressv disorder, single episode, [...] 11, 2024 10:00 AM AMBULATORY - NONE [place] [facility] Feb 10, 2024 11:00 AM AMBULATORY - PSYCHIATRY [facility] Mar 16, 2024 10:00 AM AMBULATORY - PSYCHIATRY [facility] Apr 20, 2024 11:00 AM AMBULATORY - PSYCHIATRY [facility] Social History: Smoking Status (Most current) and Tobacco Use (All prior to encounter date) This section includes the most current, and the historical, smoking and tobacco- related health factors from the [facility] where the Encounter took place. Current Smoking Status This section includes the most current smoking, or tobacco-related health factor, from the [facility] where the Encounter took place. Date/Time Current Smoking Status Comment Gonzalo lin Nov 01, 2023 11:00 AM VA-TOBACCO NEVER USED [place] Tobacco Use History This section includes a history of the smoking, or tobacco-related health factors, that were collected on or before the date of the Encounter. The data comes from the [facility] where the Encounter took place. Date/Time Smoking Status/Tobacco Use Comment F acility Sep 29, 2022 10:30 AM VA-TOBACCO FORMER USER [place] Sep 29, 2022 10:30 AM VA-TOBACCO QUIT 15 YRS OR MORE [place] Jan 21, 2021 09:00 AM VA-TOBACCO NEVER USED [place] Feb 14, 2020 01:00 PM VA-TOBACCO FORMER USER [place] Feb 14, 2020 01:00 PM VA-TOBACCO QUIT 15 YRS OR MORE [place] Jul 05, 2018 03:54 PM VA-TOBACCO FORMER USER [place] Jul 05, 2018 03:54 PM VA-TOBACCO QUIT 15 YRS OR MORE [place] May 19, 2017 01:01 PM QUIT TOBACCO USE > 7 YEARS AGO [place] Apr 29, 2016 12:14 PM QUIT TOBACCO USE > 7 YEARS AGO Quit 20 years ago [place] Mar 21, 2015 02:25 PM QUIT TOBACCO USE > 7 YEARS AGO [place] May 03, 2012 12:04 PM QUIT TOBACCO USE > 7 YEARS AGO [place] Encounter Notes: All associated encounter notes This section contains the clinical notes associated to the Encounter. Date/Time Encounter Note(s) Provider Source Jan 06, 2024 11:00 AM SOCIAL WORK NOTE: LOCAL TITLE: SOCIAL WORK NOTE STANDARD TITLE: SOCIAL WORK NOTE DATE OF NOTE: JAN 06, 2024@11:00 ENTRY DATE: JAN 06, 2024@12:00:53 AUTHOR: SHANELL SMITH EXP COSIGNER: URGENCY: STATUS: COMPLETED INFORMED CONSENT REVIEWED: At beginning of session reviewed rights and limits of confidentiality, mandatory reporting situations, duty to warn and protect, Jesus Warning, (if treatment team finds patient to be an acute danger to himself or others, that this information could be relayed to a court of law and presented to a rn provider relations), and DOD access for active duty service members. Provided Suicide Prevention Hotline number, and other contact numbers as necessary. 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 SESSION FOCUS: Met with face to face for individual counseling. stated he is still struggling with the loss of his dog. He has his chickens and kittens at home but misses the dog terribly. He stated because she had trauma in her history, Victor M connected with her on a deeper level. [place] is going to [place] tomorrow to visit his daughter. He will be gone for 2.5 weeks. He enjoys his time there, he goes for walks on the beach and kyacks with daughter's . [place] stated he continues to go for walks at home in the morning even without the dog. He has friends and family that are supportive INTERVENTIONS: Psychotherapeutic Interventions: ME; Reflective listening and support ASSESSMENT: BRIEF ASSESSMENT [...] PLAN FOR FOLLOW-UP: Next session planned for: 02/10/24 at 11am /lili/ LUCY FORREST Rate Engineer Mental Health Signed: 01/06/2024 12:56 SHANELL SMITH [place]
--- OUTSIDE RECORDS SUMMARY | 2024-03-23 01:17 | XMS_ITS | Encounter Summary ---
Author Name [facility] [place] Address [address] [place] [address] Care Team Providers Care Awning Spreader Name Role Phone BALTA MICHEL Primary Care [...] O MEDEX BRONZ E Apr 12, 2014 [id number] LOREN, OMAS PATIENT BCBS CT MEDICARE SUPPLEMEN KATHRYN MEDEX BRONZ E Mar 12, 2013 [id number] [phone] ALLI, OMAS PATIENT BCBS CT MEDICARE SUPPLEMEN KATHRYN MEDEX BRONZ E Mar 12, 2013 [id number] ALLI,BENITO [place] PATIENT MEDICARE (WNR) MEDICARE (M) PART A Feb 10, 2013 PART A [id number] TX12 BENITO CARSON PATIENT MEDICARE (WNR) MEDICARE (M) PART B Feb 10, 2013 PART B [id number] TX12 BENITO CARSON PATIENT MEDICARE (WNR) MEDICARE (M) PART A Feb 10, 2013 PART A [id number] TX12 BENITO CARSON PATIENT MEDICARE (WNR) MEDICARE (M) PART B Feb 10, 2013 PART B [id number] TX12 BENITO CARSON PATIENT Selected Encounter This section includes the information on record at [place] for the Encounter. Date/Time Encounter Type Encounter Description Reason Pro vider Source Jan 31, 2024 08:11 AM Outpatient Encounter PRIMARY CARE/MEDICINE IHE Encounter Template Text not used by [place] Plan of Treatment: Future Appointments (+ 6 [...] 10, 2024 11:00 AM AMBULATORY - PSYCHIATRY [facility] Mar 16, 2024 10:00 AM AMBULATORY - PSYCHIATRY [facility] Apr 20, 2024 11:00 AM AMBULATORY - PSYCHIATRY [facility] Encounter Notes: All associated encounter notes This section contains the clinical notes associated to the Encounter. Date/Time Encounter Note(s) Provider Source Jan 31, 2024 08:11 AM PRIMARY CARE SECUR E MESSAGING: LOCAL TITLE: PRIMARY CARE SECURE MESSAGING STANDARD TITLE: PRIMARY CARE SECURE MESSAGING DATE OF NOTE: JAN 31, 2024@08:11 ENTRY DATE: JAN 31, 2024@08:11:55 AUTHOR: MAYA MUÑOZ EXP COSIGNER: URGENCY: STATUS: COMPLETED ------Original Message ----- Sent: 01/30/2024 01:09 PM ET From: PETTY CARSON To: Kilo MICHEL_PRIMARY CARE_[facility] Subject: Medication:Rx refill Please refill Crestor (ROSUVASTATIN CA 40MG TAB) /lili/ MAYA NAVARRO Signed: 01/31/2024 08:11 Receipt Acknowledged By: 01/31/2024 09:00 /lili/ MAYDA GALLEGOS LPN LPN 01/31/2024 08:51 /lili/ ANNALISA HAWKINSN,RN-BC REGISTERED NURSE (RN) MAYA MU[facility]Z [facility]
--- OUTSIDE RECORDS SUMMARY | 2024-03-23 01:17 | XMS_ITS ---
Author Name [facility] [place] [facility] [place] Address [address] [place] [address] Care Team Providers Care Emergency Detail Driver Name Role Phone BALTA MICHEL Primary [...] O MEDEX BRONZ E Apr 12, 2014 [id number] [phone] LOREN, [place] PATIENT [place] MEDICARE SUPPLEMEN KATHRYN MEDEX BRONZ E Mar 12, 2013 [id number] ALLI, [place] KATHRYN MEDEX BRONZ E Mar 12, 2013 [id number] ALLI,BENITO [place] PATIENT MEDICARE (WNR) MEDICARE (M) PART A Feb 10, 2013 PART A [id number] TX12 BENITO CARSON PATIENT MEDICARE (WNR) MEDICARE (M) PART B Feb 10, 2013 PART B [id number] TX12 BENITO CARSON PATIENT MEDICARE (WNR) MEDICARE (M) PART A Feb 10, 2013 PART A [id number] TX12 BENITO CARSON PATIENT MEDICARE (WNR) MEDICARE (M) PART B Feb 10, 2013 PART B [id number] TX12 BENITO CARSON PATIENT Selected Encounter This section includes the information on record at [place] for the Encounter. Date/Time Encounter Type Encounter Description Reason Pro vider Source Feb 09, 2024 11:43 AM Outpatient Encounter PRIMARY CARE/MEDICINE IHE Encounter Template Text not used by [place] Plan of Treatment: Future Appointments (+ 6 [...] 10, 2024 11:00 AM AMBULATORY - PSYCHIATRY [facility] Mar 16, 2024 10:00 AM AMBULATORY PSYCHIATRY [facility] Apr 20, 2024 11:00 AM AMBULATORY PSYCHIATRY [facility] Encounter Notes: All associated encounter notes This section contains the clinical notes associated to the Encounter. Date/Time Encounter Note(s) Provider Source Feb 09, 2024 11:44 AM MEDICATION MGT NOT E: LOCAL TITLE: OUTPATIENT MEDICATION REQUEST STANDARD TITLE: MEDICATION MGT NOTE DATE OF NOTE: FEB 09, 2024@11:44 ENTRY DATE: FEB 09, 2024@11:44:17 AUTHOR: LEEANNE EVANS EXP COSIGNER: URGENCY: STATUS: COMPLETED OUTPATIENT MEDICATION REQUEST Has ADDENDA Mail: ROSUVASTATIN CA 40MG TAB OUT RX 09/16/2022 09/17/2023 06/20/2023 PETTY REID Sig: TAKE ONE TABLET BY MOUTH ONCE DAILY FOR CHOLESTEROL... [+] Med last refilled on: 06/20/23 /marito EVANS REGISTERED NURSE Signed: 02/09/2024 11:48 Receipt Acknowledged By: 03/11/2024 08:01 /marito PERSAUD NP NURSE PRACTITIONER for [facility] 03/11/2024 ADDENDUM STATUS: COMPLETED Rx filled by PCP /marito PERSAUD NP NURSE PRACTITIONER Signed: 03/11/2024 08:01 LEEANNE EVANS
--- OUTSIDE RECORDS SUMMARY | 2024-03-23 01:17 | XMS_ITS | Encounter Summary ---
Author Name [facility] [place] [facility] [place] Address [address] [place] [address] Care Team Providers Care Shredding Specialist Name Role Phone BALTA MICHEL Primary [...] O MEDEX BRONZ E Apr 12, 2014 [id number] [phone] WILLOREN,TH [place]IENT [place] SUPPLEMEN KATHRYN MEDEX BRONZ E Mar 12, 2013 [id number] WILLOREN,TH [place] KATHRYN MEDEX BRONZ E Mar 12, 2013 [id number] WILLOREN,TH OMAS PATIENT MEDICARE (WNR) MEDICARE (M) PART A Feb 10, 2013 PART A [id number] TX12 BENITO CARSON PATIENT MEDICARE (WNR) MEDICARE (M) PART B Feb 10, 2013 PART B [id number] TX12 BENITO CARSON PATIENT MEDICARE (WNR) MEDICARE (M) PART A Feb 10, 2013 PART A [id number] TX12 BENITO CARSON PATIENT MEDICARE (WNR) MEDICARE (M) PART B Feb 10, 2013 PART B [id number] TX12 BENITO CARSON PATIENT Selected Encounter This section includes the information on record at [place] for the Encounter. Date/Time Encounter Type Encounter Description Reason Provider Source Jan 11, 2024 10:00 AM HYPNOTHERAPY [facility] TREATMENT ICD-10-CM E66.3 Overweight MARGARET VELASCO Encounter Template Text not used by [place] Assessments - Encounter Diagnoses This section includes the primary and secondary diagnoses documented for the Encounter. Date/Time Primary/Secondary Diagnosis Diagnosis Name Provider Source Jan 26, 2024 01:04 PM PRIMARY Overweight PASCUAL PRESTON [facility] (6[facility]) Plan of Treatment: Future Appointments (+ [...] Encounter. Date/Time Encounter Note(s) Provider Source Jan 11, 2024 04:07 PM INTEGRATIVE HEALTH NOTE: LOCAL TITLE: WHOLE HEALTH WELLNESS GROUP STANDARD TITLE: INTEGRATIVE HEALTH NOTE DATE OF NOTE: JAN 11, 2024@16:07 ENTRY DATE: JAN 11, 2024@16:07:52 AUTHOR: PASCUAL PRESTON EXP COSIGNER: MARGARET VELASCO URGENCY: STATUS: COMPLETED [facility]NESS GROUP Has ADDENDA LOCAL TITLE: WHOLE HEALTH WELLNESS GROUP STANDARD TITLE: INTEGRATIVE HEALTH NOTE DATE OF NOTE: JAN 11, 2024@14:49 ENTRY DATE: JAN 11, 2024@14:50:10 AUTHOR: PASCUAL PRESTON EXP COSIGNER: MARGARET VELASCO URGENCY: STATUS: UNSIGNED SUPERVISION: This case is supervised by Margaret Velasco, PhD. This patient's assessment, diagnosis, treatment plan, and response to care are discussed in a standard weekly [60-minute, or more] individual supervision meeting. The [place] was provided with information on VVC and has given verbal consent to use group VVC services for their healthcare. The copy of the Group Telehealth Agreement has been mailed to the [place]. The Telehealth Agreement was also reviewed in full at the start of this session. The [place]'s location/emergency contact number were confirmed. The Emergency Call Relay Center (E911) was available. The visit was locked for security and privacy. [place] identified with 2 identifiers: [x] Full Name [x] Address [facility] Facilitators: Margaret Velasco, PhD; Stephanie Baldwin, [facility] Date: 01/11/24 Diagnosis: Overweight CPT: 10716 and 63833, 10415 Time: 60 min REASON FOR ENCOUNTER: attended session 4 of 4 of the [facility]. SUMMARY OF SESSION: Group rules and VVC etiquette were discussed. [place] orally consented to the VVC telehealth agreement. Group purpose was discussed, including a pre-induction talk: Installation Tech provided psychoeducation about what clinical hypnosis is, the focused state of concentration, self-hypnosis, personalized suggestions, structure of session, possible side effects, clinical hypnosis as a tool, myths about hypnosis, and re-alerting. Discussed Veterans' weight management goals, and any progress or barriers to those goals. Reviewed practice of self-hypnosis using the [employer] channel, Stuff That Helps. Discussed home practice self-hypnosis videos and recommended practice, as well as sustainability of practice and behavioral goals. Set SMART goals, and reviewed available relevant services for continued care. INTERVENTIONS: Induction: Peaceful place, general Deepener: Sensory details [...] of accomplishment, less bothered by stress and worries, more committed to goals, focus on emotional reaction to healthy choices Guided Imagery: Seeing self 5 years in the future on the same old, same old road, seeing self 1 and 5 years in the future down the road to healing and freedom Cognitive Training: N/A Risk Assessment: No report or indication of thoughts, intent, or plan of harming self or others today. No imminent risk identified. MSE: [place] sounded alert, oriented, and engaged. Euthymic with appropriate affect expression; Concentration appeared WNL x3, no perceptual, behavioral or thought concerns reported or observed. IMPRESSIONS: The was engaged and expressed how much he enjoyed this group and how he would continue with self-hypnosis. PLAN: There is no further f/u planned at this time. /lili/ PASCUAL PRESTON [employer]Ed [employer] Functional Analyst Signed: 01/11/2024 16:19 /lili/ Margaret Velasco, PhD Clinical Psychologist Cosigned: 01/11/2024 16:26 01/11/2024 ADDENDUM STATUS: COMPLETED I have reviewed this case and concur with the clinical impressions and recommendations made by this trainee who is under my clinical supervision. /lili/ Margaret Velasco, PhD Clinical Psychologist Signed: 01/11/2024 16:26 PASCUAL PRESTON [facility] (241[facility])
--- OUTSIDE RECORDS SUMMARY | 2024-03-23 01:17 | XMS_ITS | Encounter Summary ---
Author Name [facility] [place] Organization [place] Address [address] [place] [address] Care Team Providers Care Ironer Or Presser Name Role Phone BALTA HANNA Primary Care Provider Unava ilable Insurance [...] O MEDEX BRONZ E Apr 12, 2014 [id number] LOREN, [place] PATIENT [place] MED[place] SUPPLEMEN KATHRYN MEDEX BRONZ E Mar 12, 2013 [id number] [phone] ALLI, [place] KATHRYN MEDEX BRONZ E Mar 12, 2013 [id number] ALLI,BENITO OM[place] PATIENT MEDICARE (WNR) MEDICARE (M) PART A Feb 10, 2013 PART A [id number] TX12 BENITO CARSON PATIENT MEDICARE (WNR) MEDICARE (M) PART B Feb 10, 2013 PART B [id number] TX12 BENITO CARSON PATIENT MEDICARE (WNR) MEDICARE (M) PART A Feb 10, 2013 PART A [id number] TX12 BENITO CARSON PATIENT MEDICARE (WNR) MEDICARE (M) PART B Feb 10, 2013 PART B [id number] TX12 BENITO CARSON PATIENT Selected Encounter This section includes the information on record at [place] for the Encounter. Date/Time Encounter Type Encounter Description Reason Pro vider Source Jan 31, 2024 08:53 AM Outpatient Encounter PRIMARY CARE/MEDICINE IHE Encounter [...] Mar 16, 2024 10:00 AM AMBULATORY PSYCHIATRY [facility] Apr 20, 2024 11:00 AM AMBULATORY PSYCHIATRY [facility] Encounter Notes: All associated encounter notes This section contains the clinical notes associated to the Encounter. Date/Time Encounter Note(s) Provider Source Jan 31, 2024 08:53 AM MEDICATION MGT NOT E: LOCAL TITLE: OUTPATIENT MEDICATION REQUEST STANDARD TITLE: MEDICATION MGT NOTE DATE OF NOTE: JAN 31, 2024@08:53 ENTRY DATE: JAN 31, 2024@08:53:55 AUTHOR: MIGUEL HEAD COSIGNER: URGENCY: STATUS: COMPLETED OUTPATIENT MEDICATION REQUEST Has ADDENDA MAIL ROSUVASTATIN CA 40MG TAB OUT RX 09/16/2022 09/17/2023 06/20/2023 PETTY REID Sig: TAKE ONE TABLET BY MOUTH ONCE DAILY FOR CHOLESTEROL... [+] Collection DT Spec LDL-c HDL TRIG TSH B12 SR- VIT D25 HIV Ag/ 10/28/2023 12:08 SERUM 571 10/28/2023 12:06 SERUM 1.59 10/28/2023 12:06 SERUM 28 46 84 04/28/2023 13:39 SERUM 31 41 57 2.38 07/20/2022 14:11 SERUM 77 16 L 147 2.82 95 H /lili/ ANNALISA HAWKINSN,RN-BC REGISTERED NURSE (RN) Signed: 01/31/2024 08:58 Receipt Acknowledged By: 03/11/2024 08:00 /marito PERSAUD NP NURSE PRACTITIONER for [facility] HANNA 03/11/2024 ADDENDUM STATUS: COMPLETED Administratively signed for Dr. Hanna. Rx filled by PCP. /lili/ ARNOLDO PERSAUD NP NURSE PRACTITIONER Signed: 03/11/2024 08:00 MIGUEL HEAD
--- OUTSIDE RECORDS SUMMARY | 2024-03-23 01:17 | XMS_ITS | Encounter Summary ---
Author Name [facility] [place] Address [address] [place] [address] Care Team Providers Care Warehousing Technician Name Role Phone BALTA MICHEL Primary [...] O MEDEX BRONZ E Apr 12, 2014 [id number] [phone] LOREN, OM[place] PATIENT [place]BS [place] MEDICARE SUPPLEMEN KATHRYN MEDEX BRONZ E Mar 12, 2013 [id number] [phone] ALLI, [place] PATIENT [place] MED[place] SUPPLEMEN KATHRYN MEDEX BRONZ E Mar 12, 2013 [id number] [phone] ALLI,BENITO OM[place] PATIENT MEDICARE (WNR) MEDICARE (M) PART A Feb 10, 2013 PART A [id number] TX12 BENITO CARSON OMGUTIERREZ PATIENT MEDICARE (WNR) MEDICARE (M) PART B Feb 10, 2013 PART B [id number] TX12 BENITO CARSON PATIENT MEDICARE (WNR) MEDICARE (M) PART B Feb 10, 2013 PART B [id number] TX12 BENITO CARSON PATIENT MEDICARE (WNR) MEDICARE (M) PART A Feb 10, 2013 PART A [id number] TX12 [phone] BENITO CARSON PATIENT Selected Encounter This section includes the information on record at [place] for the Encounter. Date/Time Encounter Type Encounter Description Reason Pro vider Source Feb 09, 2024 09:58 AM Outpatient Encounter PRIMARY CARE/MEDICINE IHE Encounter Template Text not used by [place] Plan of Treatment: Future Appointments (+ 6 months) and Future Tests (+/- 45 days) The Plan of Treatment section includes future care activities for the patient from all [place] treatmentfacilities. This section includes future appointments and future orders which are active, pending or scheduled. Future Appointments This section includes appointments that were scheduled to occur 6 months from the date of the Encounter, up to a maximum of 20 appointments. The data comes from all [place] treatment facilities. Appointment Date/Time Appointment Type Appointme nt Facility Name Feb 10, 2024 11:00 AM AMBULATORY - PSYCHIATRY [facility] Mar 16, 2024 10:00 AM AMBULATORY - PSYCHIATRY [facility] Apr 20, 2024 11:00 AM AMBULATORY PSYCHIATRY [facility] Encounter Notes: All associated encounter notes This section contains the clinical notes associated to the Encounter. Date/Time Encounter Note(s) Provider Source Feb 09, 2024 10:11 AM ADDENDUM: LOCAL TITLE: Addendum STANDARD TITLE: ADDENDUM DATE OF NOTE: FEB 09, 2024@10:11 ENTRY DATE: FEB 09, 2024@10:11:01 AUTHOR: MIGUEL HEAD EXP COSIGNER: URGENCY: STATUS: COMPLETED Defer to RN. /lili/ ANNALISA HAWKINSN,RN-BC REGISTERED NURSE (RN) Signed: 02/09/2024 10:11 Receipt Acknowledged By: 02/09/2024 11:49 /es/ LEEANNE EVANS REGISTERED NURSE --- Original Document --- 02/09/24 WALK-IN NOTE PRIMARY CARE (T): <====Click to Start Advanced Medical Support presents to the Primary Care clinic with the following request: [ X ]Medication Renewal/Refill [ ]Consultation with Team RN [ ]Symptoms [ ]Other The [place] states they are: [ ]Waiting [ X ]Not Waiting No Walk in visit scheduled with PACT Nurse [ X ] At this encounter the [place]'s demographics were verified. [ X ] At this encounter the [place]'s Insurance information was verified. [ X ] At this encounter the below scheduled visits for the were discussed and appointment reminder card was offered. Future appointments: 02/10/2024 11:00 CWM/SO/MHC/LUIS Rosuvastatin Please mail /es/ HARRISON NAVARRO Signed: 02/09/2024 09:58 Receipt Acknowledged By: * AWAITING SIGNATURE * MAYDA GALLEGOS 02/09/2024 10:10 /lili/ DESIREE HAWKINS,RN- REGISTERED NURSE (RN) MIGUEL HEAD JACOBO Feb 09, 2024 09:58 AM PRIMARY CARE NOTE: LOCAL TITLE: WALK-IN NOTE PRIMARY CARE (T) STANDARD TITLE: PRIMARY CARE NOTE DATE OF NOTE: FEB 09, 2024@09:58 ENTRY DATE: FEB 09, 2024@09:58:20 AUTHOR: HARRISON MALHOTRA EXP COSIGNER: URGENCY: STATUS: COMPLETED WALK-IN NOTE PRIMARY CARE (T) Has ADDENDA <====Click to Start Advanced Medical Support presents to the Primary Care clinic with the following request: [ X ]Medication Renewal/Refill [ ]Consultation with Team RN [ ]Symptoms [ ]Other The [place] states they are: [ ]Waiting [ X ]Not Waiting No Walk in visit scheduled with PACT Nurse [ X ] At this encounter the 's demographics were verified. [ X ] At this encounter the [place]'s Insurance information was verified. [ X ] At this encounter the below scheduled visits for the [place] were discussed and appointment reminder card was offered. Future appointments: 02/10/2024 11:00 CWM/SO/MHC/LUIS Rosuvastatin Please mail /lili/ HARRISON NAVARRO Signed: 02/09/2024 09:58 Receipt Acknowledged By: 02/09/2024 11:56 /es/ MAYDA GALLEGOS LPN LPN 02/09/2024 10:10 /es/ DESIREE HAWKINS,RN-BC REGISTERED NURSE (RN) 02/09/2024 ADDENDUM STATUS: COMPLETED Defer to RN. /lili/ DESIREE HAWKINS,RN-BC REGISTERED NURSE (RN) Signed: 02/09/2024 10:11 Receipt Acknowledged By: 02/09/2024 11:49 /es/ LEEANNE EVANS REGISTERED NURSE HARRISON MALHOTRA EUGENE
--- OUTSIDE RECORDS SUMMARY | 2024-03-23 01:18 | XMS_ITS ---
Author Name [facility] [place] [facility] [place] Address [address] [place] [address] Care Team Providers Care Experimental Mechanic Name Role Phone BALTA MICHEL Primary Care [...] O MEDEX BRONZ E Apr 12, 2014 [id number] LOREN, OM[place] PATIENT [place] MED[place] SUPPLEMEN KATHRYN MEDEX BRONZ E Mar 12, 2013 [id number] [phone] ALLI, [place] KATHRYN MEDEX BRONZ E Mar 12, 2013 [id number] [phone] ALLI,BENITO OMAS PATIENT MEDICARE (WNR) MEDICARE (M) PART A Feb 10, 2013 PART A [id number] TX12 [phone] BENITO CARSON PATIENT MEDICARE (WNR) MEDICARE (M) PART B Feb 10, 2013 PART B [id number] TX12 BENITO CARSON PATIENT MEDICARE (WNR) MEDICARE (M) PART A Feb 10, 2013 PART A [id number] TX12 [phone] BENITO CARSON PATIENT MEDICARE (WNR) MEDICARE (M) PART B Feb 10, 2013 PART B [id number] TX12 [phone] BENITO CARSON PATIENT Selected Encounter This section includes the information on record at [place] for the Encounter. Date/Time Encounter Type Encounter Description Reason Provider Source Mar 17, 2024 11:57 AM Outpatient Encounter PRIMARY CARE/MEDICINE MIGUEL HEAD E Encounter Template Text not used by [place] Plan of Treatment: Future Appointments (+ 6 months) and Future Tests (+/- 45 days) The Plan of Treatment section includes future care activities for the patient from all [place] treatmentfacilities. This section includes future appointments and future orders which are active, pending or scheduled. Future Appointments This section includes appointments that were scheduled to occur 6 months from the date of the Encounter, up to a maximum of 20 appointments. The data comes from all [place] treatment facilities. Appointment Date/Time Appointment Type Appointme nt Facility Name Apr 20, 2024 11:00 AM AMBULATORY - PSYCHIATRY [facility] Encounter Notes: All associated encounter notes This section contains the clinical notes associated to the Encounter. Date/Time Encounter Note(s) Provider Source Mar 17, 2024 11:58 AM PRIMARY CARE SECUR E MESSAGING: LOCAL TITLE: PRIMARY CARE SECURE MESSAGING STANDARD TITLE: PRIMARY CARE SECURE MESSAGING DATE OF NOTE: MAR 17, 2024@11:58 ENTRY DATE: MAR 17, 2024@11:58:59 AUTHOR: MIGUEL HEAD EXP COSIGNER: URGENCY: STATUS: COMPLETED ------Original Message ------ Sent: 03/17/2024 10:56 AM ET From: PETTY CARSON To: Kilo MICHEL_PRIMARY CARE_SPOPC Subject: Medication:refill Thyroid Meds Please refill LEVOTHYROXINE NA (SYNTHROID) 125MCG TAB. Thank You /lili/ DESIREE HAWKINS,RN-BC REGISTERED NURSE (RN) Signed: 03/17/2024 11:58 [facility] Mar 17, 2024 11:57 AM PRIMARY CARE SECUR E MESSAGING: LOCAL TITLE: PRIMARY CARE SECURE MESSAGING STANDARD TITLE: PRIMARY CARE SECURE MESSAGING DATE OF NOTE: MAR 17, 2024@11:57 ENTRY DATE: MAR 17, 2024@11:57:46 AUTHOR: MIGUEL HEAD EXP COSIGNER: URGENCY: STATUS: COMPLETED ------Original Message ------ Sent: 03/17/2024 10:56 AM ET From: PETTY CARSON To: Kilo MICHEL_PRIMARY CARE_SPO Subject: Medication:refill Thyroid Meds Please refill LEVOTHYROXINE NA (SYNTHROID) 125MCG TAB. Thank You /lili/ DESIREE HAWKINS,RN-BC REGISTERED NURSE (RN) Signed: 03/17/2024 11:57 MIGUEL HEAD [facility]
--- OUTSIDE RECORDS SUMMARY | 2024-03-23 01:18 | XMS_ITS | Encounter Summary ---
Author Name [facility] [place] [facility] [place] Address [address] [place] [address] Care Team Providers Care Black Puller Name Role Phone BALTA MICHEL Primary Care [...] O MEDEX BRONZ E Apr 12, 2014 [id number] LOREN, [place] PATIENT [place] MED[place]ARE SUPPLEMEN KATHRYN MEDEX BRONZ E Mar 12, 2013 [id number] ALLI, [place] KATHRYN MEDEX BRONZ E Mar 12, 2013 [id number] ALLI,BENITO OMAS PATIENT MEDICARE (WNR) MEDICARE (M) PART A Feb 10, 2013 PART A [id number] TX12 [phone] BENITO CARSON PATIENT MEDICARE (WNR) MEDICARE (M) PART B Feb 10, 2013 PART B [id number] TX12 BENITO CARSON PATIENT MEDICARE (WNR) MEDICARE (M) PART B Feb 10, 2013 PART B [id number] TX12 BENITO CARSON PATIENT MEDICARE (WNR) MEDICARE (M) PART A Feb 10, 2013 PART A [id number] TX12 BENITO CARSON PATIENT Selected Encounter This section includes the information on record at [place] for the Encounter. Date/Time Encounter Type Encounter Description Reason Pro vider Source Feb 18, 2024 09:42 AM Outpatient Encounter PRIMARY CARE/MEDICINE IHE Encounter Template Text not used by [place] Plan of Treatment: Future Appointments (+ 6 [...] Date/Time Appointment Type Appointme nt Facility Name Mar 16, 2024 10:00 AM AMBULATORY - PSYCHIATRY [facility] Apr 20, 2024 11:00 AM AMBULATORY - PSYCHIATRY [facility] Encounter Notes: All associated encounter notes This section contains the clinical notes associated to the Encounter. Date/Time Encounter Note(s) Provider Source Feb 18, 2024 09:42 AM PRIMARY CARE [employer] E MESSAGING: LOCAL TITLE: PRIMARY CARE SECURE MESSAGING STANDARD TITLE: PRIMARY CARE SECURE MESSAGING DATE OF NOTE: FEB 18, 2024@09:42 ENTRY DATE: FEB 18, 2024@09:42:21 AUTHOR: MAYA MUÑOZ EXP COSIGNER: URGENCY: STATUS: COMPLETED PRIMARY CARE SECURE MESSAGING Has ADDENDA ------Original Message ----- Sent: 02/18/2024 09:03 AM ET From: PETTY CARSON To: Kilo MICHEL_PRIMARY CARE_SPOPC Subject: Medication:Crestor not refilled Please explain why Crestor has not been refilled. I have sent several requests via email, plus in person request at the check-in desk. /lili/ MAYA NAVARRO Signed: 02/18/2024 09:42 Receipt Acknowledged By: 02/18/2024 10:58 /es/ MAYDA GALLEGOS LPN LPN 02/18/2024 10:17 /lili/ DESIREE HAWKINS,RN-BC REGISTERED NURSE (RN) 02/18/2024 ADDENDUM STATUS: COMPLETED Sent PCP a team's message to look at alert. /lili/ DESIREE HAWKINS,RN-BC REGISTERED NURSE (RN) Signed: 02/18/2024 10:21 MAYA MUÑOZ CNTRL [facility]
--- OUTSIDE RECORDS SUMMARY | 2024-03-23 01:18 | XMS_ITS | Encounter Summary ---
Author Name [facility] [place] [facility] [place] [facility] [place] Address [address] [place] [address] Care Team Providers Care Pipeline Engineer Name Role Phone BALTA MICHEL Primary [...] O MEDEX BRONZ E Apr 12, 2014 [id number] WILUSZ, [place] PATIENT [place] MED[place] SUPPLE[place] KATHRYN MEDEX BRONZ E Mar 12, 2013 [id number] WILZ,TH [place] PATIENT [place] KATHRYN MEDEX BRONZ E Mar 12, 2013 [id number] WILLOREN,TH OMAS PATIENT MEDICARE (WNR) MEDICARE (M) PART A Feb 10, 2013 PART A [id number] TX12 BENITO CARSON PATIENT MEDICARE (WNR) MEDICARE (M) PART B Feb 10, 2013 PART B [id number] TX12 BENITO CARSON PATIENT MEDICARE (WNR) MEDICARE (M) PART A Feb 10, 2013 PART A [id number] TX12 [phone] BENITO CARSON PATIENT MEDICARE (WNR) MEDICARE (M) PART B Feb 10, 2013 PART B [id number] TX12 BENITO CARSON PATIENT Selected Encounter This section includes the information on record at [place] for the Encounter. Date/Time Encounter Type Encounter Description Reason Provider Source Feb 10, 2024 11:00 AM PSYTX W PT 60 [facility]UTES [facility] - IND ICD-10-CM F43.12 Post-traumatic stress disorder, chronic SHANELL SMITH Mike Encounter Template Text not used by [place] Assessments - Encounter Diagnoses This section includes the primary and secondary diagnoses documented for the Encounter. Date/Time Primary/Secondary Diagnosis Diagnosis Name Provider Source Feb 10, 2024 01:51 PM PRIMARY Post-traumatic stress disorder, chronic SHANELL SMITH Feb 10, 2024 01:51 PM SECONDARY Major depressv disorder, single episode, [...] - PSYCHIATRY [facility] Apr 20, 2024 11:00 AM AMBULATORY - PSYCHIATRY [facility] Social History: Smoking Status (Most current) and Tobacco Use (All prior to encounter date) This section includes the most current, and the historical, smoking and tobacco- related health factors from the [facility] facility where the Encounter took place. Current Smoking Status This section includes the most current smoking, or tobacco-related health factor, from the [facility] where the Encounter took place. Date/Time Current Smoking Status Comment Gonazlo mikhail Nov 01, 2023 11:00 AM VA-TOBACCO NEVER USED [place] Tobacco Use History This section includes a history of the smoking, or tobacco-related health factors, that were collected on or before the date of the Encounter. The data comes from the [place] facility where the Encounter took place. Date/Time Smoking Status/Tobacco Use Comment F acility Sep 29, 2022 10:30 AM VA-TOBACCO FORMER USER [place] Sep 29, 2022 10:30 AM VA-TOBACCO QUIT 15 YRS OR MORE [place] Jan 21, 2021 09:00 AM VA-TOBACCO NEVER USED [place] Feb 14, 2020 01:00 PM VA-TOBACCO FORMER USER [place] Feb 14, 2020 01:00 PM VA-TOBACCO QUIT 15 YRS OR MORE [place] Jul 05, 2018 03:54 PM VA-TOBACCO FORMER USER [place] Jul 05, 2018 03:54 PM VA-TOBACCO QUIT 15 YRS OR MORE [place] May 19, 2017 01:01 PM QUIT TOBACCO USE > 7 YEARS AGO [place] Apr 29, 2016 12:14 PM QUIT TOBACCO USE > 7 YEARS AGO Quit 20 years ago [place] Mar 21, 2015 02:25 PM QUIT TOBACCO USE > 7 YEARS AGO [place] May 03, 2012 12:04 PM QUIT TOBACCO USE > 7 YEARS AGO [place] Encounter Notes: All associated encounter notes This section contains the clinical notes associated to the Encounter. Date/Time Encounter Note(s) Provider Source Feb 10, 2024 11:00 AM SOCIAL WORK NOTE: LOCAL TITLE: SOCIAL WORK NOTE STANDARD TITLE: SOCIAL WORK NOTE DATE OF NOTE: FEB 10, 2024@11:00 ENTRY DATE: FEB 10, 2024@13:45:34 AUTHOR: SHANELL SMITHIGNER: URGENCY: STATUS: COMPLETED INFORMED CONSENT REVIEWED: At beginning of session reviewed rights and limits of confidentiality, mandatory reporting situations, duty to warn and protect, Jesus Warning, (if treatment team finds patient to be an acute danger to himself or others, that this information could be relayed to a court of law and presented to a placing judge), and DOD access for active duty service members. Provided Suicide Prevention Hotline number, and other contact numbers as necessary. 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 SESSION FOCUS: Met with [employer] face to face for individual counseling. [employer] stated when he comes here for appts he has memories of his dog sitting and waiting to come to the office. was very emotional talking about it. He stated his vacation to [place] to visit his daughter was good. He was impressed with his daughter because she is showing an interest in fishing. She has taken it up as a hobby. [employer] spoke about getting another puppy but is not sure about the timing. He also needs to get surgery on his shoulder. He feels he procrastinates about these things and more. stated his moods are stable and he has the support of friends and family. [...] PLAN FOR FOLLOW-UP: Next session planned for: 03/16/24 at 10am /lili/ LUCY FORREST Knocker Off Mental Health Signed: 02/10/2024 13:51 SHANELL SMITH
--- OUTSIDE RECORDS SUMMARY | 2024-03-23 01:18 | XMS_ITS | Encounter Summary ---
Author Name [facility] [place] [facility] [place] [facility] [place] Address [address] [place] [address] Care Team Providers Care Data Communications Software Consultant Name Role Phone BALTA MICHEL Primary Care [...] O MEDEX BRONZ E Apr 12, 2014 [id number] WILUSZ, OM[place] PATIENT [place] MEDICARE SUPPLEMEN KATHRYN MEDEX BRONZ E Mar 12, 2013 [id number] WILZ,TH OM[place] PATIENT [place] MEDICARE SUPPLEMEN KATHRYN MEDEX BRONZ E Mar 12, 2013 [id number] WILLOREN,TH OMAS PATIENT MEDICARE (WNR) MEDICARE (M) PART A Feb 10, 2013 PART A [id number] TX12 BENITO CARSON PATIENT MEDICARE (WNR) MEDICARE (M) PART B Feb 10, 2013 PART B [id number] TX12 BENITO CARSON PATIENT MEDICARE (WNR) MEDICARE (M) PART A Feb 10, 2013 PART A [id number] TX12 BENITO CARSON PATIENT MEDICARE (WNR) MEDICARE (M) PART B Feb 10, 2013 PART B [id number] TX12 [phone] BENITO CARSON PATIENT Selected Encounter This section includes the information on record at [place] for the Encounter. Date/Time Encounter Type Encounter Description Reason Provider Source Mar 16, 2024 10:00 AM PSYTX W PT 60 MINUTES [facility] - IND ICD-10-CM F43.12 Post-traumatic stress disorder, chronic SAHNELL SMITH Mike Encounter Template Text not used by [place] Assessments - Encounter Diagnoses This section includes the primary and secondary diagnoses documented for the Encounter. Date/Time Primary/Secondary Diagnosis Diagnosis Name Provider Source Mar 16, 2024 11:32 AM PRIMARY Post-traumatic stress disorder, chronic SHANELL SMITH Mar 16, 2024 11:32 AM SECONDARY Major depressv disorder, single episode, [...] 20, 2024 11:00 AM AMBULATORY - PS[facility]CHIATRY [facility] Social History: Smoking Status (Most current) and Tobacco Use (All prior to encounter date) This section includes the most current, and the historical, smoking and tobacco- related health factors from the [facility] facility where the Encounter took place. Current Smoking Status This section includes the most current smoking, or tobacco-related health factor, from the [facility] facility where the Encounter took place. Date/Time Current Smoking Status Comment Gonzalo lin Nov 01, 2023 11:00 AM VA-TOBACCO NEVER USED [place] Tobacco Use History This section includes a history of the smoking, or tobacco-related health factors, that were collected on or before the date of the Encounter. The data comes from the [place] facility where the Encounter took place. Date/Time Smoking Status/Tobacco Use Comment F acility Sep 29, 2022 10:30 AM VA-TOBACCO FORMER USER [place] Sep 29, 2022 10:30 AM VA-TOBACCO QUIT 15 YRS OR MORE [place] Jan 21, 2021 09:00 AM VA-TOBACCO NEVER USED [place] Feb 14, 2020 01:00 PM VA-TOBACCO FORMER USER [place] Feb 14, 2020 01:00 PM VA-TOBACCO QUIT 15 YRS OR MORE [place] Jul 05, 2018 03:54 PM VA-TOBACCO FORMER USER [place] Jul 05, 2018 03:54 PM VA-TOBACCO QUIT 15 YRS OR MORE [place] May 19, 2017 01:01 PM QUIT TOBACCO USE > 7 YEARS AGO [place] Apr 29, 2016 12:14 PM QUIT TOBACCO USE > 7 YEARS AGO Quit 20 years ago [place] Mar 21, 2015 02:25 PM QUIT TOBACCO USE > 7 YEARS AGO [place] May 03, 2012 12:04 PM QUIT TOBACCO USE > 7 YEARS AGO [place] Encounter Notes: All associated encounter notes This section contains the clinical notes associated to the Encounter. Date/Time Encounter Note(s) Provider Source Mar 16, 2024 10:00 AM SOCIAL WORK NOTE: LOCAL TITLE: SOCIAL WORK NOTE STANDARD TITLE: SOCIAL WORK NOTE DATE OF NOTE: MAR 16, 2024@10:00 ENTRY DATE: MAR 16, 2024@11:24:43 AUTHOR: SHANELL SMITH EXP COSIGNER: URGENCY: STATUS: COMPLETED INFORMED CONSENT REVIEWED: At beginning of session reviewed rights and limits of confidentiality, mandatory reporting situations, duty to warn and protect, Jesus Warning, (if treatment team finds patient to be an acute danger to himself or others, that this information could be relayed to a court of law and presented to a psychologist), and DOD access for active duty service members. Provided Suicide Prevention Hotline number, and other contact numbers as necessary. 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 SESSION FOCUS: Met with face to face for individual counseling. [place] stated he continues to look for his [place] when out in the [place]. She was a part of his daily routine for many many years and he still finds himself looking for her. He stated his Thanksgiving was ok, he went to his wifes family's home. There were some things said politically that he had issues with but he was able to hold back. He spoke some about his concerns with upcoming administration. He is planning a trip to [place] with his daughter in early spring. He is grateful he can still travel and there is less stress now that he doesn't have a dog. He spoke about meditation and his alternative ways for self care. Overall he is feeling stable and has the support of some family and friends. INTERVENTIONS: Psychotherapeutic Interventions: [place]; Reflective listening and support ASSESSMENT: BRIEF ASSESSMENT [...] PLAN FOR FOLLOW-UP: Next session planned for: 04/20/24 at 11am /lili/ LUCY FORREST Perioperative Manager Mental Health Signed: 03/16/2024 11:32 SHANELL SMITHFIELD
--- OUTSIDE RECORDS SUMMARY | 2024-03-23 01:18 | XMS_ITS | Encounter Summary ---
Author Name [facility] [place] [facility] [place] Address [address] [place] [address] Care Team Providers Care Tie Buyer Name Role Phone BALTA HANNA Primary Care [...] O MEDEX BRONZ E Apr 12, 2014 [id number] [place], OM[place] PATIENT [place] MEDICARE SUPPLEMEN KATHRYN MEDEX BRONZ E Mar 12, 2013 [id number] [phone] [place], [place] PAT[place] KATHRYN MEDEX BRONZ E Mar 12, 2013 [id number] [phone] ALLI,BENITO OMAS PATIENT MEDICARE (WNR) MEDICARE (M) PART B Feb 10, 2013 PART B [id number] TX12 BENITO CARSON PATIENT MEDICARE (WNR) MEDICARE (M) PART A Feb 10, 2013 PART A [id number] TX12 BENITO CARSON PATIENT MEDICARE (WNR) MEDICARE (M) PART A Feb 10, 2013 PART A [id number] TX12 BENITO CARSON PATIENT MEDICARE (WNR) MEDICARE (M) PART B Feb 10, 2013 PART B [id number] TX12 BENITO CARSON PATIENT Selected Encounter This section includes the information on record at [place] for the Encounter. Date/Time Encounter Type Encounter Description Reason Pro vider Source Mar 17, 2024 11:57 AM Outpatient Encounter PRIMARY CARE/MEDICINE IHE Encounter [...] 20, 2024 11:00 AM AMBULATORY - PSYCHIATRY [facility] Encounter Notes: All associated encounter notes This section contains the clinical notes associated to the Encounter. Date/Time Encounter Note(s) Provider Source Mar 17, 2024 11:58 AM MEDICATION MGT NOT E: LOCAL TITLE: OUTPATIENT MEDICATION REQUEST STANDARD TITLE: MEDICATION MGT NOTE DATE OF NOTE: MAR 17, 2024@11:58 ENTRY DATE: MAR 17, 2024@11:58:06 AUTHOR: MIGUEL HEAD EXP COSIGNER: URGENCY: STATUS: COMPLETED OUTPATIENT MEDICATION REQUEST Has ADDENDA MAIL LEVOTHYROXINE NA (SYNTHROID) 125MCG TAB Last Filled: 11/19/23 Refills Remainin Collection DT Spec LDL-c HDL TRIG TSH B12 SR- VIT D25 HIV Ag/ 10/28/2023 12:08 SERUM 571 10/28/2023 12:06 SERUM 1.59 10/28/2023 12:06 SERUM 28 46 84 04/28/2023 13:39 SERUM 31 41 57 2.38 07/20/2022 14:11 SERUM 77 16 L 147 2.82 95 H /lili/ ANNALISA HAWKINSN,RN-BC REGISTERED NURSE (RN) Signed: 03/17/2024 11:58 Receipt Acknowledged By: 03/18/2024 07:51 /lili/ ARNOLDO PERSAUD NP NURSE PRACTITIONER for BALTA HANNA 03/18/2024 ADDENDUM STATUS: COMPLETED Administratively signed for Dr. Hanna. Rx renewed /lili/ ARNOLDO PERSAUD NP NURSE PRACTITIONER Signed: 03/18/2024 07:51 MIGUEL HEAD
--- OUTSIDE RECORDS SUMMARY | 2024-03-23 01:18 | XMS_ITS | Encounter Summary ---
Author Name [facility] [place] [facility] [place] [facility] [place] Address [address] [place] [address] Care Team Providers Care Rolling Machine Tender Name Role Phone BALTA MICHEL Primary [...] O MEDEX BRONZ E Apr 12, 2014 [id number] [place], [place] PATIENT [place] MED[place] SUPPLEMEN KATHRYN MEDEX BRONZ E Mar 12, 2013 [id number] [place], [place] KATHRYN MEDEX BRONZ E Mar 12, 2013 [id number] [phone] ALLI, OMAS PATIENT MEDICARE (WNR) MEDICARE (M) PART A Feb 10, 2013 PART A [id number] TX12 BENITO CARSON PATIENT MEDICARE (WNR) MEDICARE (M) PART B Feb 10, 2013 PART B [id number] TX12 BENITO CARSON PATIENT MEDICARE (WNR) MEDICARE (M) PART A Feb 10, 2013 PART A [id number] TX12 [phone] BENITO CARSON PATIENT MEDICARE (WNR) MEDICARE (M) PART B Feb 10, 2013 PART B [id number] TX12 BENITO CARSON PATIENT Selected Encounter This section includes the information on record at [place] for the Encounter. Date/Time Encounter Type Encounter Description Reason Pro vider Source Mar 20, 2024 02:36 PM Outpatient Encounter COMMUNITY CARE CONSULT IHE Encounter Template Text not used by [place] Plan of Treatment: Future Appointments (+ 6 months) and Future Tests (+/- 45 days) The Plan of Treatment section includes future care activities for the patient [facility] [place] [facility] This section includes future appointments and future orders which are active, pending or scheduled. Future Appointments This section includes appointments that were scheduled to occur 6 months from the date of the Encounter, up to a maximum of 20 appointments. The data comes from all [place] treatment facilities. Appointment Date/Time Appointment Type Appointme nt Facility Name Apr 20, 2024 11:00 AM AMBULATORY - PSYCHIATRY [facility] Active, Pending, and Scheduled Orders This section includes a listing of several types of active, pending, and scheduled orders, including clinic medications orders, diagnostic test orders, procedure orders and consult orders; where the start date of the order is 45 days before the date of the Encounter or 45 days after the date of theEncounter. The data comes from all [facility]. Test Date/Time Test Type Test Details Facility Name May 03, 2024 12:00 AM Laboratory - Chemistry Order VITAMIN D 25-OH (Therapy monitor) BLOOD (SST-SERUM) [facility] May 03, 2024 12:00 AM Laboratory - Chemistry Order VITAMIN B12 BLOOD (SST-SERUM) [facility] May 03, 2024 12:00 AM Laboratory - Chemistry Order MAGNESIUM BLOOD (SST-SERUM) [facility] May 03, 2024 12:00 AM Laboratory - Chemistry Order BASIC METABOLIC PANEL (fasting) BLOOD (SST-SERUM) [facility] May 03, 2024 12:00 AM Laboratory - Chemistry Order LIVER FUNCTION BLOOD (SST-SERUM) [facility] May 03, 2024 12:00 AM Laboratory - Chemistry Order CBC AND DIFF (AUTO) BLOOD (LAV-BLOOD) [facility] May 03, 2024 12:00 AM Laboratory - Chemistry Order LIPID PANEL FASTING BLOOD (SST-SERUM) [facility] May 03, 2024 12:00 AM Laboratory - Chemistry Order HEMOGLOBIN A1C PANEL BLOOD (LAV-BLOOD) [facility] May 03, 2024 12:00 AM Laboratory - Chemistry Order TSH BLOOD (SST-SERUM) [facility] Encounter Notes: All associated encounter notes This section contains the clinical notes associated to the Encounter. Date/Time Encounter Note(s) Provider Source Mar 20, 2024 02:36 PM ADMINISTRATIVE NOT E: LOCAL TITLE: ADMINISTRATIVE NOTE STANDARD TITLE: ADMINISTRATIVE NOTE DATE OF NOTE: MAR 20, 2024@14:36 ENTRY DATE: MAR 20, 2024@14:36:24 AUTHOR: RONEN BARROW EXP COSIGNER: URGENCY: STATUS: COMPLETED ADMINISTRATIVE NOTE Has ADDENDA is scheduled for a 6mth follow up on 03/22/2024 @ 11:00, current consult has , a new consult is needed if approved [facility] [address] [place] [address], [address] [place], [place] PH: [phone] FX: [phone] /lili/ RONEN BARROW Signed: 03/20/2024 14:37 Receipt Acknowledged By: * AWAITING SIGNATURE * BALTA MICHEL * AWAITING SIGNATURE * MAYDA GALLEGOS 03/20/2024 14:40 /es/ VONDA DOVE LINOTYPE OPERATOR 03/22/2024 22:47 /es/ ANNALISA MEDINAN RN-BC REGISTERED NURSE for MIGUEL HEAD 03/22/2024 ADDENDUM STATUS: COMPLETED Placed Gastroenterology continuation of care consult as requested and held for provider review /es/ DESIREE MEDINA RN-BC REGISTERED NURSE Signed: 03/22/2024 22:52 RONEN BARROW CNTRL WSTRN BALJEET [facility]LETCHER
== END 2024-03-22 12:46 | disposition home or self-care (01) ==
PROVIDERS: PCP Internal Medicine; Visit Provider Nurse Practitioner Family
DX: K57.90 Diverticulosis of intestine, part unspecified, without perforation or abscess without bleeding (principal); K58.2 Mixed irritable bowel syndrome; K21.9 Gastro-esophageal reflux disease without esophagitis
CPT/HCPCS: 99214

== ENCOUNTER 2024-03-22 10:54 | Outpatient (REF) | payer OTHER, SELFPAY ==
[2024-03-22 13:02] LABS: Folate 13.8 ng/mL (> or = 4.0); Vitamin B12 749 pg/mL (200-900)
--- OUTSIDE RECORDS SUMMARY | 2024-03-23 01:46 | XMS_ITS | Continuity of Care Document ---
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 It does not include entries that were removed or entered in error. Problem Status Onset Date Problem Type Date of Resolution Comments Source Anorectal fistula Active Condition [facility] Anxiety State NEC (ICD-9-CM 300.09) Active Condition [facility] Artificial knee joint present Active Condition [facility] Benign hypertension (SNOMED CT 70284117) Active Condition Feb 14, 2020 Entered By: YELENA MICHEL Comment: on HCTZ / lisinopril [facility] Bereavement * (ICD-9-CM V62.82) Active Condition [facility] Co-management Active Condition August Entered By: YELENA MICHEL Comment: Dr. León, [facility] ([facility] [place] [facility] Coronary artery disease Active Condition [facility] History of coronary artery disease with stent placement Active Condition Feb 14, 2020 Entered By: YELENA MICHEL Comment: on ASA / statinNov 2019 Entered By: YELENA MICHEL Comment: [facility] Entered By: YELENA MICHEL Comment: cartoid u/s 02/2021 - no hemodynamically sifnidicant disease [facility] Hyperlipidemia (SNOMED CT 02491560) Active Condition Feb 14, 2020 Entered By: YELENA MICHEL Comment: on high intensity atorvastatin / zetia [facility] Hypothyroidism (SNOMED CT 94279721) Active Condition May 08, 2022 Entered By: YELENA MICHEL Comment: levothyroxine 125mcg [facility] Knee Joint replacement Status (Prosthetic or Artificial Device) Active Condition [facility] Major depressive disorder Active Condition [facility] Normocytic anemia Active Condition Jul 30, 2022 Entered By: YELENA MICHEL Comment: [place] [facility] [place] Entered By: YELENA MICHEL Comment: hgb 11.9 (May 2022) [facility] Osteoarthritis (SNOMED CT 494356014) Active Condition [facility] Osteoporosis Active Condition May 08, 2022 Entered By: YELENA MICHEL Comment: DEXA June 2021 [facility] Pain in right foot Active Condition August 15, 2019 Entered By: YELENA MICHEL Comment: moves around [facility] Posttraumatic stress disorder Active Condition Sep 25, 2014 Entered By: JIMI HASTINGS Comment: Per 09/13/14 C&P assessment [facility] Rotator cuff impingement syndrome Active Condition [facility] Screening for Malignant Neoplasms of colon Active Condition Jul 04, 2012 Entered By: ALEXSANDRA CARR Comment: 01/16/2007 Within normal limits no f/u mentioned in report [facility] Secondary osteoarthritis (SNOMED CT 879717753) Active Condition [place] Tinnitus * (ICD-9-CM 388.30) Active Condition [facility] Adjustment Disorder with mixed Anxiety and depressed mood (ICD-9-CM 309.28) Inactive Condition 12/14/2012 [facility] Diagnosis: ICD-10-CM F43.12 Post-traumatic stress disorder, chronic Active Diagnosis [facility] Diagnosis: ICD-10-CM Z23 Encounter for immunization Active Diagnosis [facility] Diagnosis: ICD-10-CM E66.3 Overweight Active Diagnosis [facility] ([facility]) Diagnosis: ICD-10-CM E66.9 Obesity, unspecified Active Diagnosis [facility] ([facility]) Diagnosis: ICD-10-CM Z00.01 Encounter for general adult medical exam w abnormal findings Active Diagnosis [facility] Diagnosis: ICD-10-CM M79.674 Pain in right toe(s) Active Diagnosis [facility] Diagnosis: ICD-10-CM M79.644 Pain in right finger(s) Active Diagnosis [facility] Diagnosis: ICD-10-CM L02.212 Cutaneous abscess of back [any part, except buttock] Active Diagnosis [facility] Diagnosis: ICD-10-CM L72.3 Sebaceous cyst Active Diagnosis [facility] Diagnosis: ICD-10-CM L02.91 Cutaneous abscess, unspecified Active Diagnosis [facility] Diagnosis: ICD-10-CM E78.00 Pure hypercholesterol emia, unspecified Active Diagnosis [facility] Medications Combined list of outpatient medications from [...] HIGH CHOLESTE ROL SUBCUT ANEOUS ACTIVE 10/13/2024 [id number] 4 MARILU APOLINARI O 2023 2 [place] ALIROCUMAB 75MG/ML INJ,PEN,1ML INJECT 75MG (1ML) SUBCUTAN EOUSLY EVERY 2 WEEKS FOR HIGH CHOLESTE ROL SUBCUT ANEOUS DISCONT INUED 09/17/2023 [id number] CORNELIA JIMENES 2022 2 [place] ASPIRIN 81MG TAB,EC TAKE ONE TABLET BY MOUTH DAILY ORAL ACTIVE ALEXSANDRA CARR 2015 [place] ASPIRIN 81MG TAB,EC TAKE ONE TABLET BY MOUTH ONCE DAILY ORAL ACTIVE DIONICIO BEYER 2015 [facility] ATORVASTATI N CA 80MG TAB TAKE ONE TABLET BY MOUTH EVERY EVENING ORAL ACTIVE JACQUELYN LEVY 2015 [facility] CEPHALEXIN 500MG CAP TAKE ONE CAPSULE BY MOUTH THREE TIMES A DAY FOR INFECTIO N ORAL DISCONT INUED 05/28/2023 [id number] Rahul PAREKH 2023 21 [place] CEPHALEXIN 500MG CAP TAKE ONE CAPSULE BY MOUTH THREE TIMES A DAY FOR INFECTIO N ORAL 06/02/2023 [id number] 4 MARILU APOLINARI O 2023 21 [place] DICLOFENAC NA 50MG TAB,EC TAKE ONE TABLET BY MOUTH TWICE DAILY NEEDED FOR PAIN/INF LAMMATIO N ORAL ACTIVE 08/18/2024 [id number] 4 Rahul PAREKH 2023 180 [place] DICLOFENAC NA 50MG TAB,EC TAKE ONE TABLET BY MOUTH TWICE DAILY NEEDED FOR PAIN/INF LAMMATIO N ORAL DISCONT INUED 02/05/2024 [id number] 4 MARILURICK BETH O 2022 90 [place] EZETIMIBE 10MG TAB TAKE ONE TABLET BY MOUTH ONCE DAILY TO LOWER CHOLESTE ROL ORAL ACTIVE 11/23/2024 [id number] 4 RICK MICHEL O 2023 90 [place] EZETIMIBE 10MG TAB TAKE ONE TABLET BY MOUTH ONCE DAILY TO LOWER CHOLESTE ROL ORAL DISCONT INUED 09/17/2023 [id number] 4 CORNELIA JIMENES R 2022 90 [place] HYDROCHLORO THIAZIDE 25MG TAB TAKE ONE TABLET BY MOUTH ONCE DAILY FOR HIGH BLOOD PRESSURE ORAL ACTIVE 12/17/2024 [id number] 4 RICK MICHEL O 2023 90 [place] HYDROCHLORO THIAZIDE 25MG TAB TAKE ONE TABLET BY MOUTH ONCE DAILY FOR HIGH BLOOD PRESSURE ORAL DISCONT INUED 10/05/2023 [id number] 4 LESLY MICHELARI O 2022 90 [facility] [place] HYDROPHILIC (EQV EUCERIN) CREAM,TOP APPLY A LIBERAL AMOUNT TOPICALL Y ONCE DAILY FOR DRY SKIN TOPICA L ACTIVE 05/03/2024 [id number] MARILURICK O 2023 454 [place] LEVOTHYROXI NE NA 125MCG TAB (SYNTHROID) TAKE ONE TABLET BY MOUTH EVERY MORNING 30 MINUTES BEFORE BREAKFAS T FOR THYROID - TAKE ON AN EMPTY STOMACH WITH A FULL GLASS OF WATER ORAL ACTIVE 03/19/2025 [id number] 4 RA AUGUSTINE PERSAUD 2023 90 [place] LEVOTHYROXI NE NA 125MCG TAB (SYNTHROID) TAKE ONE TABLET BY MOUTH EVERY MORNING 30 MINUTES BEFORE BREAKFAS T FOR THYROID - TAKE ON AN EMPTY STOMACH WITH A FULL GLASS OF WATER ORAL DISCONT INUED 05/10/2024 [id number] 4 MARILU, APOLINARI O 2023 90 [place] LEVOTHYROXI NE NA 125MCG TAB (SYNTHROID) TAKE ONE TABLET BY MOUTH EVERY MORNING 30 MINUTES BEFORE BREAKFAS T FOR THYROID - TAKE ON AN EMPTY STOMACH WITH A FULL GLASS OF WATER ORAL DISCONT INUED 03/26/2023 [id number] 3 MARILU, APOLINARI O 2021 90 [place] LEVOTHYROXI NE NA 125MCG TAB (SYNTHROID) TAKE ONE TABLET BY MOUTH EVERY MORNING ORAL ACTIVE JACQUELYN LEVY S 2015 [facility] LISINOPRIL 10MG TAB TAKE ONE TABLET BY MOUTH ONCE DAILY TO CONTROL BLOOD PRESSURE ORAL 03/15/2024 [id number] 4 MARILU, APOLINARI O 2022 90 [place] LISINOPRIL 10MG TAB TAKE ONE TABLET BY MOUTH ONCE DAILY ORAL ACTIVE ANNA LEVYISTIN S 2015 [facility] ROSUVASTATI N CA 40MG TAB TAKE ONE TABLET BY MOUTH ONCE DAILY FOR CHOLESTE ROL ORAL ACTIVE 02/22/2025 [id number] 4 MARILU, APOLINARI O 2023 90 [place] ROSUVASTATI N CA 40MG TAB TAKE ONE TABLET BY MOUTH ONCE DAILY FOR CHOLESTE ROL ORAL 09/17/2023 [id number] 4 CORNELIA JIMENES 2022 90 [place] Allergies, Adverse Reactions, Alerts Combined list of allergies from Department of Defense and Veterans Affairs facilities. It does not include entries that were removed or entered in error. Substance Category Reaction Severity Reaction type Status Date Reported Comments Source TRAMADOL Propensity to adverse reactions to drug (finding) Delirium active 8 [facility] [facility] Immunizations Combined list of available immunizations from the Department of Defense and Veterans Affairs facilities. 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 Comments Source COVID-19 (MODERNA), MRNA, LNP-S, PF, 50 MCG/0.5 ML (AGES 12+ YEARS) 2023 BECCA GAR R RIGHT DELTO ID [id number] 312 complet ed [place] INFLUENZA, HIGH-DOSE, TRIVALENT, PF 2023 BECCA GAR E R LEFT DELTO ID [id number] 135 complet ed [place] INFLUENZA, HIGH-DOSE, QUADRIVALENT 2022 LAURA HEAD RIGHT DELTO ID [id number] 197 complet ed [place] PNEUMOCOCCAL CONJUGATE PCV20, POLYSACCHARID E [id number] CONJUGATE, ADJUVANT, PF 2022 LAURA HEAD LEFT DELTO ID [id number] 216 complet ed [facility] [place] COVID-19 (PFIZER), MRNA, LNP-S, PF, ANTONIO-SUCROSE, 30 MCG/0.3 ML (AGES 12+ YEARS) 1 2022 309 complet ed [facility] RESPIRATORY SYNCYTIAL VIRUS (RSV) MAB, UNSPECIFIED 2022 315 complet ed [facility] COVID-19 (MODERNA), MRNA, LNP-S, BIVALENT BOOSTER, PF, 50 MCG/0.5 ML OR 25MCG/0.25 ML DOSE 1 2022 EVAN AMIN LEFT DELTO ID [id number] 229 complet ed [facility] [place] INFLUENZA VACCINE, QUADRIVALENT, ADJUVANTED 2022 CRESCENCIO EVANS LEFT DELTO ID [id number] 205 complet ed Lot [id number] Expires August 27, 2022 [facility] [place] COVID-19 (PFIZER), MRNA, LNP-S, PF, 30 MCG/0.3 ML DOSE 3 2020 208 complet ed [facility] [place] INFLUENZA VACCINE, QUADRIVALENT, ADJUVANTED 2020 205 complet ed [facility] [place] COVID-19 (MODERNA), MRNA, LNP-S, PF, 100 MCG/0.5 ML DOSE 2 2020 207 complet ed MOD; [id number]; 1 [facility] [place] COVID-19 (MODERNA), MRNA, LNP-S, PF, 100 MCG/0.5 ML DOSE 1 2020 207 complet ed MOD; [id number]; 1 [place] INFLUENZA, HIGH-DOSE, QUADRIVALENT 2019 197 complet ed [facility] INFLUENZA, UNSPECIFIED FORMULATION 2019 88 complet ed [facility] INFLUENZA, SEASONAL, INJECTABLE [...] FLU,3 YRS (HISTORICAL) 2013 88 complet ed [facility] [place] [facility] FLU,3 YRS [...] Nov 01, 2023 11:43 AM Reporting Lab: [facility] [address] [address] Performing Lab: [facility] [address] [address] [facility] MAGNESIUM MAGNESIUM [MASS/VOLUM E] IN SERUM OR PLASMA 2.1 mg/dL 1.6 - 2.6 10/31 Specimen Type: SERUM No comment entered. Ordering Provider: JOSE MICHEL Report Released Date/Time: Nov 01, 2023 11:43 AM Reporting Lab: [facility] [address] [facility] [address] Performing Lab: [address] [address] [facility] VITAMIN D 25-OH (Therapy monitor) 25-HYDROXYV ITAMIN [...] additional information , please refer to [email or web address] [email or web address] (This link is being provided for information al/ educational purposes only.) This test was developed and its analytical performance characteris tics have been determined by [employer] [place], [place]. It has not been cleared or approved by the U.S. Food and Drug Administrat ion. This assay has been validated pursuant to the CLIA regulations and is used for clinical purposes. This test was developed and its analytical performance characteris tics have been determined by [place]. It has not been cleared or approved by the U.S. Food and Drug Administrat ion. This assay has been validated pursuant to the CLIA regulations and is used for clinical purposes. Test Performed by [employer], [employer] [place], [address] [place], [place] Mike Porter M.D., Ph.D., Director of Laboratorie s , CLIA [id number] TEST PERFORMED AT: , Ordering Provider: JOSE MICHEL Report Released Date/Time: Nov 01, 2023 11:43 AM Reporting Lab: [facility] [address] [facility] [address] Performing Lab: [facility] [id number] [place] [address] VITAMIN D 25-OH (Therapy monitor) 25-HYDROXYV ITAMIN [...] additional information , please refer to [email or web address] Q199 (This link is being provided for information al/ educational purposes only.) This test was developed and its analytical performance characteris tics have been determined by [employer] [place], [place]. It has not been cleared or approved by the U.S. Food and Drug Administrat ion. This assay has been validated pursuant to the CLIA regulations and is used for clinical purposes. This test was developed and its analytical performance characteris tics have been determined by [place]. It has not been cleared or approved by the U.S. Food and Drug Administrat [email or web address]. This assay has been validated pursuant to the CLIA regulations and is used for clinical purposes. Test Performed by [employer], [employer] [place], [address] [place], [place] Mike Porter M.D., Ph.D., Director of Laboratorie s , CLIA [id number] TEST PERFORMED AT: , Ordering Provider: JOSE MICHEL Report Released Date/Time: Nov 01, 2023 11:43 AM Reporting Lab: [facility] [address] [facility] [address] Performing Lab: [facility] [address] [address] [facility] VITAMIN D 25-OH (Therapy monitor) CALCIFEROL [...] additional information , please refer to [email or web address] [email or web address] (This link is being provided for information al/ educational purposes only.) This test was developed and its analytical performance characteris tics have been determined by [employer] [place], [place]. It has not been cleared or approved by the U.S. Food and Drug Administrat [email or web address]. This assay has been validated pursuant to the CLIA regulations and is used for clinical purposes. This test was developed and its analytical performance characteris tics have been determined by [place]. It has not been cleared or approved by the U.S. Food and Drug Administrat ion. This assay has been validated pursuant to the CLIA regulations and is used for clinical purposes. Test Performed by [employer], [employer] [facility], [address] [place] [address] Mike Porter M.D., Ph.D., Director of Laboratorie s , CLIA [id number] TEST PERFORMED AT: , Ordering Provider: JOSE MICHEL Report Released Date/Time: Nov 01, 2023 11:43 AM Reporting Lab: [facility] [place] [facility] [address] [facility] [address] Performing Lab: [facility] [address] [facility] FERRITIN FERRITIN [MASS/VOLUM E] IN SERUM OR PLASMA 84 ng/mL 20 - 300 10/27 Specimen Type: SERUM No comment entered. Ordering Provider: JOSE MICHEL Report Released Date/Time: Oct 21, 2023 02:23 PM Reporting Lab: [facility] [place] [facility] [address] [facility] [address] Performing Lab: [facility] [address] [facility] [address] [facility] FOLATE (WROX) FOLATE [MASS/VOLUM E] IN SERUM OR PLASMA >20.00 ng/mL 5.2 10/27 Specimen Type: SERUM No comment entered. Ordering Provider: JOSE MICHEL Report Released Date/Time: Oct 21, 2023 02:23 PM Reporting Lab: [facility] [place] [facility] [address] [facility] [address] Performing Lab: [facility] [address] [address] [facility] IRON & TIBC PANEL IRON BINDING CAPACITY [MASS/VOLUM E] IN SERUM OR PLASMA 347 ug/dL 204 - 475 10/27 Specimen Type: SERUM No comment entered. Ordering Provider: JOSE MICHEL Report Released Date/Time: Oct 21, 2023 02:23 PM Reporting Lab: [facility] [place] [facility] [address] [facility] [address] Performing Lab: [facility] [place] [facility] [address] [facility] [address] [place] [facility] [place] [facility] IRON & TIBC PANEL IRON [MASS/VOLUM E] IN SERUM OR PLASMA 101 ug/dL 40 - 160 10/27 Specimen Type: SERUM No comment entered. Ordering Provider: JOSE MICHEL Report Released Date/Time: Oct 21, 2023 02:23 PM Reporting Lab: [facility] [place] [facility] [address] [facility] [address] Performing Lab: [facility] [place] [facility] [address] [address] [facility] [place] [facility] IRON & TIBC PANEL IRON/IRON BINDING CAPACITY.TO KATHRYN [MASS RATIO] IN SERUM OR PLASMA 29.1 20.0 - 50.0 10/27 Specimen Type: SERUM No comment entered. Ordering Provider: JOSE MICHEL Report Released Date/Time: Oct 21, 2023 02:23 PM Reporting Lab: [facility] [place] [facility] [address] [address] Performing Lab: [facility] [place] [facility] [address] [address] [facility] [place] [facility] VITAMIN B12 COBALAMIN (VITAMIN B12) [MASS/VOLUM E] IN SERUM OR PLASMA 571 pg/mL 200 - 900 10/27 Specimen Type: SERUM No comment entered. Ordering Provider: JOSE MICHEL Report Released Date/Time: Oct 21, 2023 02:23 PM Reporting Lab: [facility] [place] [facility] [address] [facility] [address] Performing Lab: [facility] [place] [facility] [address] [facility] [address] [facility] [place] [facility] HEMOGLOBI N A1C PANEL HEMOGLOBIN A1C/HEMOGLO [...] May 03, 2023 09:13 AM Reporting Lab: [facility] [address] [address] Performing Lab: [address] [address] [facility] LIPID PANEL FASTING CHOLESTEROL [MASS/VOLUM E] IN SERUM OR PLASMA 91 mg/dL 10/27 Specimen Type: SERUM No comment entered. Ordering Provider: JOSE MICHEL Report Released Date/Time: May 03, 2023 09:13 AM Reporting Lab: [facility] [address] [address] Performing Lab: [facility] [address] [address] [facility] LIPID PANEL FASTING TRIGLYCERID E [MASS/VOLUM E] IN SERUM OR PLASMA 84 mg/dL 0 - 150 10/27 Specimen Type: SERUM No comment entered. Ordering Provider: JOSE MICHEL Report Released Date/Time: May 03, 2023 09:13 AM Reporting Lab: [facility] [address] [address] Performing Lab: [address] [address] [facility] LIPID PANEL FASTING CHOLESTEROL IN LDL [MASS/VOLUM E] IN SERUM OR PLASMA BY CALCULATION 28 mg/dL 0 - 129 10/27 Specimen Type: SERUM No comment entered. Ordering Provider: JOSE MICHEL Report Released Date/Time: May 03, 2023 09:13 AM Reporting Lab: [facility] [place] [facility] [address] [address] Performing Lab: [place] [facility] [place] [facility] [address] [facility] [address] [facility] W[facility]N [facility] LIPID PANEL FASTING CHOLESTEROL .TOTAL/CHOL ESTEROL IN HDL [MASS RATIO] IN SERUM OR PLASMA 2.0 10/27 Specimen Type: SERUM No comment entered. Ordering Provider: JOSE MICHEL Report Released Date/Time: May 03, 2023 09:13 AM Reporting Lab: [facility] TRN [facility] [address] [address] Performing Lab: [facility] W[facility]N [facility]ITAL[facility] [address] [facility] [address] [facility]TRN [facility] LIPID PANEL FASTING CHOLESTEROL IN HDL [MASS/VOLUM E] IN SERUM OR PLASMA 46 mg/dL 40 - 60 10/27 Specimen Type: SERUM No comment entered. Ordering Provider: JOSE MICHEL Report Released Date/Time: May 03, 2023 09:13 AM Reporting Lab: [facility]RL TRN [facility]PITALUSETS [facility] [address] [facility] [address] Performing Lab: [place] [facility] W[facility]N [facility]ITAL[facility]ETS [facility] [address] [address] [facility]RL [facility] LIVER FUNCTION PROTEIN [MASS/VOLUM E] IN SERUM OR PLASMA 6.9 g/dL 6.0 - 8.3 10/27 Specimen Type: SERUM No comment entered. Ordering Provider: JOSE MICHEL Report Released Date/Time: May 03, 2023 09:13 AM Reporting Lab: [facility] [place] [facility] [address] [facility] [address] Performing Lab: [place] [facility] [place] [facility] [address] [facility] [address] [facility] W[facility]N [facility] LIVER FUNCTION ALBUMIN [MASS/VOLUM E] IN SERUM OR PLASMA 4.0 g/dL 3.5 - 5.0 10/27 Specimen Type: SERUM No comment entered. Ordering Provider: JOSE MICHEL Report Released Date/Time: May 03, 2023 09:13 AM Reporting Lab: [facility] [place] [facility] [address] [facility] [address] Performing Lab: [facility] [place] [facility] [address] [facility] [address] [facility] [place] [facility] LIVER FUNCTION ALKALINE PHOSPHATASE [ENZYMATIC ACTIVITY/VO LUME] IN SERUM OR PLASMA 132 U/L 40 - 150 10/27 Specimen Type: SERUM No comment entered. Ordering Provider: JOSE MICHEL Report Released Date/Time: May 03, 2023 09:13 AM Reporting Lab: [facility] [place] [facility] [address] [facility] [address] Performing Lab: [facility] [place] [facility] [address] [facility] [address] [place] [facility] [place] [facility] LIVER FUNCTION ASPARTATE AMINOTRANSF ERASE [ENZYMATIC ACTIVITY/VO LUME] IN SERUM OR PLASMA 32 U/L 5 - 34 10/27 Specimen Type: SERUM No comment entered. Ordering Provider: JOSE MICHEL Report Released Date/Time: May 03, 2023 09:13 AM Reporting Lab: [facility] [place] [facility] [address] [facility] [address] Performing Lab: [facility] [place] [facility] [address] [facility] [address] [place] [facility] [place] [facility] LIVER FUNCTION ALANINE AMINOTRANSF ERASE [ENZYMATIC ACTIVITY/VO LUME] IN SERUM OR PLASMA 35 U/L 10/27 Specimen Type: SERUM No comment entered. Ordering Provider: JOSE MICHEL Report Released Date/Time: May 03, 2023 09:13 AM Reporting Lab: [facility] [place] [facility] [address] [address] Performing Lab: [facility] [place] [facility] [address] [facility] [address] [facility] [place] [facility] LIVER FUNCTION BILIRUBIN.T OTAL [MASS/VOLUM E] IN SERUM OR PLASMA 1.0 mg/dL 0.2 - 1.2 10/27 Specimen Type: SERUM No comment entered. Ordering Provider: JOSE MICHEL Report Released Date/Time: May 03, 2023 09:13 AM Reporting Lab: [facility] [address] [facility] [address] Performing Lab: [facility] [address] [address] [facility] Vital Signs Combined list of inpatient and outpatient Vital Signs from Department of Defense and Veterans Affairs, ranging from 12 months to all on record, depending upon the facility. Vital Sign Value Date Comments Source SYSTOLIC BLOOD PRESSURE 118 11/01/19 24 11:10:36 [facility] DIASTOLIC BLOOD PRESSURE 79 024 11:10:36 [facility] PULSE OXIMETRY 97 11/01/2023 11:10:36 [facility] WEIGHT 219.4 11/01/2023 11:10:36 [facility] BMI 35kg/m2 11/01/2023 11:10:36 [facility] PAIN 0 11/01/2023 11:10:36 [facility] HEIGHT 66 11/01/2023 11:10:36 [facility] TEMPERATURE 96.1 11/01/2023 11:10:36 [facility] PULSE 62 11/01/2023 11:10:36 [facility] RESPIRATION 20 11/01/2023 11:10:36 [facility] SYSTOLIC BLOOD PRESSURE 113 08/18/19 24 11:48:23 [facility] DIASTOLIC BLOOD PRESSURE 68 024 11:48:23 [facility] PULSE OXIMETRY 95 08/18/2023 11:48:23 [facility] TEMPERATURE 97.8 08/18/2023 11:48:23 [facility] PULSE 66 08/18/2023 11:48:23 [facility] SYSTOLIC BLOOD PRESSURE 122 05/14/19 24 09:47:00 [facility] DIASTOLIC BLOOD PRESSURE 77 024 09:47:00 [facility] PULSE OXIMETRY 97 05/14/2023 09:47:00 [facility] PAIN 0 05/14/2023 09:47:00 [facility] TEMPERATURE 98 05/14/2023 09:47:00 [facility] PULSE 67 05/14/2023 09:47:00 [facility] RESPIRATION 15 05/14/2023 09:47:00 [facility] SYSTOLIC BLOOD PRESSURE 125 05/07/19 24 10:26:13 [facility] DIASTOLIC BLOOD PRESSURE 74 024 10:26:13 [facility] PULSE OXIMETRY 97 05/07/2023 10:26:13 [facility] PAIN 0 05/07/2023 10:26:13 [facility] TEMPERATURE 98.7 05/07/2023 10:26:13 [facility] PULSE 63 05/07/2023 10:26:13 [facility] RESPIRATION 16 05/07/2023 10:26:13 [facility] SYSTOLIC BLOOD PRESSURE 127 05/06/19 24 09:50:08 [facility] DIASTOLIC BLOOD PRESSURE 80 024 09:50:08 [facility] PULSE OXIMETRY 95 05/06/2023 09:50:08 [facility] PAIN 2 05/06/2023 09:50:08 [facility] TEMPERATURE 98.5 05/06/2023 09:50:08 [facility] PULSE 71 05/06/2023 09:50:08 [facility] RESPIRATION 18 05/06/2023 09:50:08 [facility] Encounters Combined list of: 1) Encounters from Department of [facility] Affairs facilities [facility] 2) Encounters from the Department of Defense facilities going back up to 280 months. Location Location Details Encounter Type Encounter Number Reason For Visit Attending Provider ADM Date DC Date Status Disposition Source [facility] Outpatient Encounter [id number] 09/25 [facility] [place] PSY[place] W PT 60 MINUTES [id number] Diagnos is: ICD-10- CM F43.12 Post-tr aumatic stress disorde r, chronic
LUIS,DEBOR 09/25 [place] [facility] Out[facility] Encounter [id number] 09/29 [facility] [place] OFF/OP EST AUGUST X REQ PHY/QHP [id number] Diagnos is: ICD-10- CM E78.00 Pure hyperch olester olemia, unspeci fied
SONIDO,L SHAY H 09/29 [place] [facility] Out[facility] Encounter [id number] 10/01 [facility] En[facility] [id number] 10/01 [facility] Out[facility] Encounter [id number] 10/12 [facility] [place] W PT 60 MINUTES [id number] Diagnos is: ICD-10- CM F43.12 Post-tr aumatic stress disorde r, chronic
HERMINIO SMITH 10/29 [place] W PT 60 MINUTES [id number] Diagnos is: ICD-10- CM F43.12 Post-tr aumatic stress disorde r, chronic
HERMINIO SMITH 12/01 [place] W PT 60 MINUTES [id number] Diagnos is: ICD-10- CM F43.12 Post-tr aumatic stress disorde r, chronic
HERMINIO SMITH 01/01 [place] [facility] Out[facility] Encounter [id number] MAYDA GALLEGOS 01/21 [facility] Encounter [id number] 01/24 [facility] Out[facility] Encounter [id number] 01/24 [facility] [place] OFF/OP EST AUGUST X REQ PHY/QHP [id number] Diagnos is: ICD-10- CM Z23 Encount er for immuniz ation<b r/> Claude HEAD H 01/28 [place] W PT 60 MINUTES [id number] Diagnos is: ICD-10- CM F43.12 Post-tr aumatic stress disorde r, chronic
HERMINIO SMITH AH 01/29 [place] [facility] Out[facility] Encounter [id number] 02/02 [facility] Encounter [id number] 03/08 [facility] Out[facility] Encounter [id number] 03/09 [facility] Out[facility] Encounter [id number] 03/09 [facility] [place] PSY[place] W PT 60 MINUTES [id number] Diagnos is: ICD-10- CM F43.12 Post-tr aumatic stress disorde r, chronic
NINA SMITHOR 03/11 [place] [facility] Encounter [id number] 03/15 [facility] Encounter [id number] 03/17 [facility] Out[facility] Encounter [id number] 03/17 [facility] Out[facility] Encounter [id number] 03/23 [facility] [place] PSY[place] W PT 60 MINUTES [id number] Diagnos is: ICD-10- CM F43.12 Post-tr aumatic stress disorde r, chronic
HERMINIO SMITH 04/13 [place] [facility] Encounter [id number] 04/21 [facility] Out[facility] Encounter [id number] 04/28 [facility] [place] OFF/OP EST AUGUST X REQ PHY/QHP [id number] [id number] 10 Diagnos is: ICD-10- CM L02.212 Cutaneo us abscess of back [any part, except buttock ]
NAN,ER IC K 04/28 [place] [facility] Out[facility] Encounter [id number] 04/28 [facility] [place] O/P EST SF 10 MIN [id number] Diagnos is: ICD-10- CM L02.91 Cut[place]o us abscess , unspeci fied
IZABELLA,BASIL NDRA C 04/28 [place] OFF/OP EST AUGUST X REQ PHY/QHP [id number] [id number] Diagnos is: ICD-10- CM L02.91 [place] us abscess , unspeci fied
Claude HEAD SHAY H 04/30 [place] [facility] Outpatient Encounter [id number] 04/30 [facility] [place] O/P EST LOW 20 MIN [id number] Diagnos is: ICD-10- CM L02.212 Cutaneo us abscess of back [any part, except buttock ]
BASIL PAREKH NDRA C 04/30 [place] O/P EST LOW 20 MIN [id number] Diagnos is: ICD-10- CM L72.3 Sebaceo us cyst
MARILU,A POLIBENIGNOIO 05/03 [place] [facility] Outpatient Encounter [id number] 05/06 [facility] Outpatient Encounter [id number] 05/06 [facility] [place] OFF/OP EST AUGUST X REQ PHY/QHP [id number] [id number] 14 Diagnos is: ICD-10- CM L02.212 Cut[place]o us abscess of back [any part, except buttock ]
KWASI MONTANA IC K 05/06 [place] [facility] Out[facility] Encounter [id number] 05/07 [facility] Outpatient Encounter [id number] 05/07 [facility] [place] OFF/OP EST MAY X REQ PHY/QHP [id number] [id number] 14 Diagnos is: ICD-10- CM L02.212 [place] us abscess of back [any part, except buttock ]
NANKWASI EDWARDS IC K 05/07 [place] [facility] Outpatient Encounter [id number] 05/07 [facility] [place] OFF[place] O/P EST LOW 20 MIN [id number] Diagnos is: ICD-10- CM L02.212 [place] us abscess of back [any part, except buttock ]
BASIL PAREKH 05/07 [place] [facility] Outpatient Encounter [id number] 05/11 [facility] [place] PSYTX W PT 60 MINUTES [id number] Diagnos is: ICD-10- CM F43.12 Post-tr aumatic stress disorde r, chronic
LUIS,DEBOR AH 05/13 [place] OFF/OP EST AUGUST X REQ PHY/QHP [id number] [id number] Diagnos is: ICD-10- CM L02.212 [place] us abscess of back [any part, except buttock ]
KWASI MONTANA IC K 05/14 [place] O/P EST LOW 20 MIN [id number] Diagnos is: ICD-10- CM L02.212 [place] us abscess of back [any part, except buttock ]
BASIL PAREKH C 05/14 [place] [facility] Out[facility] Encounter [id number] 05/14 [facility] En[facility] [id number] [facility] [place] PSY[place] W PT 60 MINUTES [id number] Diagnos is: ICD-10- CM F43.12 Post-tr aumatic stress disorde r, chronic
[facility] [place] W PT 60 MINUTES [id number] [id number] 22 Diagnos is: ICD-10- CM F43.12 Post-tr aumatic stress disorde r, chronic
[facility] [place] [facility] Out[facility] Encounter [id number] 08/08 [facility] Out[facility] Encounter [id number] 08/08 [facility] [place] PSY[place] W PT 60 MINUTES [id number] [id number] Diagnos is: ICD-10- CM F43.12 Post-tr aumatic stress disorde r, chronic
[facility] [place] OFF/OP EST AUGUST X REQ PHY/QHP [id number] [id number] 69 Diagnos is: ICD-10- CM M79.644 Pain in right finger( s)
STEPHANIA MULLER 08/17 [place] [facility] Out[facility] Encounter [id number] 08/17 [facility] [place] O/P EST MOD 30 MIN [id number] 21 Diagnos is: ICD-10- CM M79.674 Pain in right toe(s)< br/> BASIL PAREKH 08/17 [facility] [place] PSYTX W PT 60 MINUTES [id number] [id number] Diagnos is: ICD-10- CM F43.12 Post-tr aumatic stress disorde r, chronic
HERMINIO SMITH 09/15 [place] [facility] En[facility] [id number] 09/19 [facility] En[facility] [id number] 09/19 [facility] Out[facility] Encounter [id number] 09/19 [facility] Out[facility] Encounter [id number] 09/21 [facility] Out[facility] Encounter [id number] 09/21 [facility] [place] PSY[place] W PT 60 MINUTES [id number] Diagnos is: ICD-10- CM F43.12 Post-tr aumatic stress disorde r, chronic
HERMINIO SMITH 10/27 [facility] [place] [facility] [facility]P EST MOD 30 MIN [id number] Diagnos is: ICD-10- CM Z00.01 Encount er for general adult medical exam w abnorma l finding s
Kilo MICHEL 10/31 [place] [facility] Encounter [id number] 11/14 [facility] Encounter [id number] 11/14 [facility] Out[facility] Encounter [id number] 11/14 [facility] Out[facility] Encounter [id number] 11/14 [facility] PSYTX W PT 60 MINUTES [id number] Diagnos is: ICD-10- CM F43.12 Post-tr aumatic stress disorde r, chronic
HERMINIO SMITH 12/08 [place] [facility] Out[facility] Encounter [id number] 12/08 [facility] Out[facility] Encounter [id number] 12/08 [facility] Out[facility] Encounter [id number] Kilo MICHEL 12/08 [facility] [place] [facility] [place]6[facility] [id number] Diagnos is: ICD-10- CM E66.9 Obesity , unspeci fied
KILLIAN VELASCO RA 12/20 [facility] ([facility] (6[facility] [id number] Diagnos is: ICD-10- CM E66.9 Obesity , unspeci fied
KILLIAN VELASCO RA 12/27 [facility] (631GE) [facility] Outpatient Encounter [id number] 1.12/29 [facility] Outpatient Encounter [id number] 1.12/29 [facility] Outpatient Encounter [id number] 1.12/29 [facility] (631GE) Outpatient Encounter [id number] 01/03 [facility] (631GE) [place] PSYTX W PT 60 MINUTES [id number] [id number] Diagnos is: ICD-10- CM F43.12 Post-tr aumatic stress disorde r, chronic
LUIS,DEBOR AH 01/05 [place] [facility] Outpatient Encounter [id number] 01/05 [facility] [place] [place] [facility] (631GE[place] [id number] 1GE. 13 Diagnos is: ICD-10- CM E66.3 Overwei ght<br/ > KILLIAN VELASCO RA 01/10 [facility] (631GE) [facility] Out[facility] Encounter [id number] [facility] Outpatient Encounter [id number] 1.01/30 [facility] [place] OFF/OP EST AUGUST X REQ PHY/QHP [id number] Diagnos is: ICD-10- CM Z23 Encount er for immuniz ation<b r/> KATHERINE GAR [place]IN [place] [facility] Outpatient Encounter [id number] 1.02/08 [facility] Outpatient Encounter [id number] 1.02/08 [facility] PT 60 MINUTES [id number] Diagnos is: ICD-10- CM F43.12 Post-tr aumatic stress disorde r, chronic
LUIS,DEBOR AH 02/09 [place] [facility] Outpatient Encounter [id number] 1.02/17 [facility] W PT 60 MINUTES [id number] Diagnos is: ICD-10- CM F43.12 Post-tr aumatic stress disorde r, chronic
LUIS,DEBOR AH 03/16 [place] [facility] Outpatient Encounter [id number] 1. Claude HEAD 03/17 [facility] [place] [place] [facility] Outpatient Encounter [id number] 1.03/17 [facility] [place] [place] Outpatient Encounter [id number] 03/20 [facility] Social History Combined list of available smoking, tobacco, and other social history from Department of Defense and Veterans Affairs facilities. Social History Type Response Date Comment [facility] e Tobacco smoking status [facility] VA-TOBACCO NEVER USED 11/01/2023 [facility] of [facility] OR MORE 09/29/2022 [facility] 01/21/2021 [facility]/14/2020 [facility] 5 Y[facility] OR MORE 07/05/2018 [facility] History of tobacco use QUIT TOBACCO USE > 7 YEARS AGO 05/19/2017 [facility] History of tobacco use QUIT TOBACCO USE > 7 YEARS AGO 04/29/2016 Quit 20 years ago [facility] History of tobacco use QUIT TOBACCO USE > 7 YEARS AGO 03/21/2015 [facility] History of tobacco use QUIT TOBACCO USE > 7 YEARS AGO 05/03/2012 [facility] Plan of Care List of future care activities from Department of [facility] Affairs facilities. Additional future care activities may be listed in the Assessment and Plan section. Date/Time Care Activity Care Activity Detail [facility] 04/20/2024 AMBULATORY - PSYCHIATRY AMBULATORY - PS[facility]C [facility] 05/03/2024 Laboratory - Furnace Stock Inspector ry Order VITAMIN D 25-OH (Therapy monitor) BLOOD (SST-SERUM) [facility] 05/03/2024 Laboratory - Furnace Stock Inspector ry Order VITAMIN B12 BLOOD (SST-SERUM) [facility] 05/03/2024 Laboratory - Furnace Stock Inspector ry Order MAGNESIUM BLOOD (SST-SERUM) [facility] 05/03/2024 Laboratory - Furnace Stock Inspector ry Order BASIC METABOLIC PANEL (fasting) BLOOD (SST-SERUM) [facility] 05/03/2024 Laboratory - Furnace Stock Inspector ry Order LIPID PANEL FASTING BLOOD (SST-SERUM) [facility] 05/03/2024 Laboratory - Furnace Stock Inspector ry Order CBC AND DIFF (AUTO) BLOOD (LAV-BLOOD) [facility] 05/03/2024 Laboratory - Furnace Stock Inspector ry Order LIVER FUNCTION BLOOD (SST-SERUM) [facility] 05/03/2024 Laboratory - Furnace Stock Inspector ry Order HEMOGLOBIN A1C PANEL BLOOD (LAV-BLOOD) [facility] 05/03/2024 Laboratory - Furnace Stock Inspector ry Order TSH BLOOD (SST-SERUM) [facility]
[2024-03-26 17:08] LABS: Vitamin D 25-OH, D2 <4 ng/mL; Vitamin D 25-OH, D3 102 ng/mL; Vitamin D 25-OH, Total 102 ng/mL (30-100)
== END 2024-03-22 10:55 | disposition home or self-care (01) ==
LOC: HO.LAB 10:54
PROVIDERS: PCP Internal Medicine; Visit Provider Nurse Practitioner Family
DX: K58.0 Irritable bowel syndrome with diarrhea (principal); K57.90 Diverticulosis of intestine, part unspecified, without perforation or abscess without bleeding; R14.0 Abdominal distension (gaseous); K21.9 Gastro-esophageal reflux disease without esophagitis; E55.9 Vitamin D deficiency, unspecified
CPT/HCPCS: 36415; 82306; 82607; 82746; 99212

== ENCOUNTER 2024-03-23 14:39 | Outpatient (REF) | payer OTHER, SELFPAY ==
--- OUTSIDE RECORDS SUMMARY | 2024-03-23 14:41 | XMS_ITS | Continuity of Care Document ---
Author Name [facility] Organization [facility] Care Team Providers Care Automobile Sales Representative Name Role Phone [facility] Unavailable Unavailable Problems Combined list of problems from Department of Defense and Veterans Affairs facilities. It does not include entries that were removed or entered in error. Problem Status Onset Date Problem Type Date of Resolution Comments Source Anorectal fistula Active Condition [facility] Anxiety State NEC (ICD-9-CM 300.09) Active Condition [facility] Artificial knee joint present Active Condition [facility] Benign hypertension (SNOMED CT 84390726) Active Condition Feb 14, 2020 Entered By: YELENA MICHEL Comment: on HCTZ / lisinopril [place] Bereavement * (ICD-9-CM V62.82) Active Condition [facility] Co-management Active Condition August Entered By: YELENA MICHEL Comment: Dr. León, [facility] ([facility] [place]) [facility] Coronary artery disease Active Condition [facility] History of coronary artery disease with stent placement Active Condition Feb 14, 2020 Entered By: YELENA MICHEL Comment: on ASA / statinNov 2019 Entered By: YELENA MICHEL Comment[facility] Entered By: YELENA MICHEL Comment: cartoid u/s 02/2021 - no hemodynamically sifnidicant disease [facility] Hyperlipidemia (SNOMED CT 01559716) Active Condition Feb 14, 2020 Entered By: YELENA MICHEL Comment: on high intensity atorvastatin / zetia [place] Hypothyroidism (SNOMED CT 43096367) Active Condition May 08, 2022 Entered By: YELENA MICHEL Comment: levothyroxine 125mcg [place] Knee Joint replacement Status (Prosthetic or Artificial Device) Active Condition [facility] Major depressive disorder Active Condition [facility] Normocytic anemia Active Condition Jul 30, 2022 Entered By: YELENA MICHEL Comment: [facility] Entered By: YELENA MICHEL Comment: hgb 11.9 (May 2022) [place] Osteoarthritis (SNOMED CT 291799698) Active Condition [place] Osteoporosis Active Condition May 08, 2022 Entered By: YELENA MICHEL Comment: DEXA June 2021 [place] Pain in right foot Active Condition August 15, 2019 Entered By: YELENA MICHEL Comment: moves around [facility] Posttraumatic stress disorder Active Condition Sep 25, 2014 Entered By: JIMI HASTINGS Comment: Per 09/13/14 C&P assessment [facility] Rotator cuff impingement syndrome Active Condition [facility] Screening for Malignant Neoplasms of colon Active Condition Jul 04, 2012 Entered By: ALEXSANDRA CARR Comment: 01/16/2007 Within normal limits no f/u mentioned in report [place] Secondary osteoarthritis (SNOMED CT 657184694) Active Condition [facility] Tinnitus * (ICD-9-CM 388.30) Active Condition [place] Adjustment Disorder with mixed Anxiety and depressed mood (ICD-9-CM 309.28) Inactive Condition 12/14/2012 [facility] Diagnosis: ICD-10-CM F43.12 Post-traumatic stress disorder, chronic Active Diagnosis [place] Diagnosis: ICD-10-CM Z23 Encounter for immunization Active Diagnosis [place] Diagnosis: ICD-10-CM E66.3 Overweight Active Diagnosis [facility] (6[facility]) Diagnosis: ICD-10-CM E66.9 Obesity, unspecified Active Diagnosis [facility] (6[facility]) Diagnosis: ICD-10-CM Z00.01 Encounter for general adult medical exam w abnormal findings Active Diagnosis [place] Diagnosis: ICD-10-CM M79.674 Pain in right toe(s) Active Diagnosis [place] Diagnosis: ICD-10-CM M79.644 Pain in right finger(s) Active Diagnosis [facility] Diagnosis: ICD-10-CM L02.212 Cutaneous abscess of back [any part, except buttock] Active Diagnosis [facility] Diagnosis: ICD-10-CM L72.3 Sebaceous cyst Active Diagnosis [facility] Diagnosis: ICD-10-CM L02.91 Cutaneous abscess, unspecified Active Diagnosis [place] Diagnosis: ICD-10-CM E78.00 Pure hypercholesterol emia, unspecified Active Diagnosis [place] Medications Combined list of outpatient medications from [...] HIGH CHOLESTE ROL SUBCUT ANEOUS ACTIVE 10/13/2024 [id number] MARILU APOLINARI O 2023 2 IELD ALIROCUMAB 75MG/ML INJ,PEN,1ML INJECT 75MG (1ML) SUBCUTAN EOUSLY EVERY 2 WEEKS FOR HIGH CHOLESTE ROL SUBCUT ANEOUS DISCONT INUED 09/17/2023 [id number] CORNELIA JIMENES 2022 2 IELD ASPIRIN 81MG TAB,EC TAKE ONE TABLET BY MOUTH DAILY ORAL ACTIVE ALEXSANDRA CARR 2015 [place] ASPIRIN 81MG TAB,EC TAKE ONE TABLET BY MOUTH ONCE DAILY ORAL ACTIVE DIONICIO BEYER 2015 [facility] ATORVASTATI N [place] 80MG TAB TAKE ONE TABLET BY MOUTH EVERY EVENING ORAL ACTIVE JACQUELYN LEVY 2015 [facility] CEPHALEXIN 500MG CAP TAKE ONE CAPSULE BY MOUTH THREE TIMES A DAY FOR INFECTIO N ORAL DISCONT INUED 05/28/2023 [id number] Rahul PAREKH 2023 21 [facility] CEPHALEXIN 500MG CAP TAKE ONE CAPSULE BY MOUTH THREE TIMES A DAY FOR INFECTIO N ORAL 06/02/2023 [id number] 4 MARILU APOLINARI O 2023 21 [place] DICLOFENAC NA 50MG TAB,EC TAKE ONE TABLET BY MOUTH TWICE DAILY NEEDED FOR PAIN/INF LAMMATIO N ORAL ACTIVE 08/18/2024 [id number] 4 Rahul PAREKH 2023 180 [place] DICLOFENAC NA 50MG TAB,EC TAKE ONE TABLET BY MOUTH TWICE DAILY NEEDED FOR PAIN/INF LAMMATIO N ORAL DISCONT INUED 02/05/2024 [id number] 4 MARILURICK BETH O 2022 90 [place] EZETIMIBE 10MG TAB TAKE ONE TABLET BY MOUTH ONCE DAILY TO LOWER CHOLESTE ROL ORAL ACTIVE 11/23/2024 [id number] 4 RICK MICHEL O 2023 90 [place] EZETIMIBE 10MG TAB TAKE ONE TABLET BY MOUTH ONCE DAILY TO LOWER CHOLESTE ROL ORAL DISCONT INUED 09/17/2023 [id number] 4 CORNELIA JIMENES R 2022 90 [place] HYDROCHLORO THIAZIDE 25MG TAB TAKE ONE TABLET BY MOUTH ONCE DAILY FOR HIGH BLOOD PRESSURE ORAL ACTIVE 12/17/2024 [id number] 4 RICK MICHEL O 2023 90 [place] HYDROCHLORO THIAZIDE 25MG TAB TAKE ONE TABLET BY MOUTH ONCE DAILY FOR HIGH BLOOD PRESSURE ORAL DISCONT INUED 10/05/2023 [id number] LESLY MICHELARI O 2022 90 [facility] IELD HYDROPHILIC (EQV EUCERIN) CREAM,TOP APPLY A LIBERAL AMOUNT TOPICALL Y ONCE DAILY FOR DRY SKIN TOPICA L ACTIVE 05/03/2024 [id number] MARILURICK O 2023 454 [place] LEVOTHYROXI NE NA 125MCG TAB (SYNTHROID) TAKE ONE TABLET BY MOUTH EVERY MORNING 30 MINUTES BEFORE BREAKFAS T FOR THYROID - TAKE ON AN EMPTY STOMACH WITH A FULL GLASS OF WATER ORAL ACTIVE 03/19/2025 [id number] 4 RA AUGUSTINE PERSAUD 2023 90 [place] LEVOTHYROXI NE NA 125MCG TAB (SYNTHROID) TAKE ONE TABLET BY MOUTH EVERY MORNING 30 MINUTES BEFORE BREAKFAS T FOR THYROID - TAKE ON AN EMPTY STOMACH WITH A FULL GLASS OF WATER ORAL DISCONT INUED 05/10/2024 [id number] 4 MARILU, APOLINARI O 2023 90 [place] LEVOTHYROXI NE NA 125MCG TAB (SYNTHROID) TAKE ONE TABLET BY MOUTH EVERY MORNING 30 MINUTES BEFORE BREAKFAS T FOR THYROID - TAKE ON AN EMPTY STOMACH WITH A FULL GLASS OF WATER ORAL DISCONT INUED 03/26/2023 [id number] 3 MARILU, APOLINARI O 2021 90 [place] LEVOTHYROXI NE NA 125MCG TAB (SYNTHROID) TAKE ONE TABLET BY MOUTH EVERY MORNING ORAL ACTIVE JACQUELYN LEVY S 2015 [facility] LISINOPRIL 10MG TAB TAKE ONE TABLET BY MOUTH ONCE DAILY TO CONTROL BLOOD PRESSURE ORAL 03/15/2024 [id number] 4 MARILU, APOLINARI O 2022 90 [place] LISINOPRIL 10MG TAB TAKE ONE TABLET BY MOUTH ONCE DAILY ORAL ACTIVE ANNA LEVYISTIN S 2015 [facility] ROSUVASTATI N CA 40MG TAB TAKE ONE TABLET BY MOUTH ONCE DAILY FOR CHOLESTE ROL ORAL ACTIVE 02/22/2025 [id number] MARILU, APOLINARI O 2023 90 [place] ROSUVASTATI N CA 40MG TAB TAKE ONE TABLET BY MOUTH ONCE DAILY FOR CHOLESTE ROL ORAL 09/17/2023 [id number] 4 CORNELIA JIMENES 2022 90 [place] Allergies, Adverse Reactions, Alerts Combined list of allergies from Department of Defense and Veterans Affairs facilities. It does not include entries that were removed or entered in error. Substance Category Reaction Severity Reaction type Status Date Reported Comments Source TRAMADOL Propensity to adverse reactions to drug (finding) Delirium active 8 [facility] [facility] Immunizations Combined list of available immunizations from the Department of Defense and Veterans Affairs facilities. Immunization Series Date Given Administered By Site Reaction Lot Number CVX Code Drug Genetics Nurse Status Comments Source COVID-19 (MODERNA), MRNA, LNP-S, PF, 50 MCG/0.5 ML (AGES 12+ YEARS) 2023 BECCA GAR R RIGHT DELTO ID [id number] 312 complet ed [place] INFLUENZA, HIGH-DOSE, TRIVALENT, PF 2023 BECCA GAR E R LEFT DELTO ID [id number] 135 complet ed [place] INFLUENZA, HIGH-DOSE, QUADRIVALENT 2022 LAURA HEAD RIGHT DELTO ID [id number] 197 complet ed [place] PNEUMOCOCCAL CONJUGATE PCV20, POLYSACCHARID E [id number] CONJUGATE, ADJUVANT, PF 2022 LAURA HEAD LEFT DELTO ID [id number] 216 complet ed [facility] IELD COVID-19 (PFIZER), MRNA, LNP-S, PF, ANTONIO-SUCROSE, 30 MCG/0.3 ML (AGES 12+ YEARS) 1 2022 309 complet ed [facility] RESPIRATORY SYNCYTIAL VIRUS (RSV) MAB, UNSPECIFIED 2022 315 complet ed [facility] COVID-19 (MODERNA), MRNA, LNP-S, BIVALENT BOOSTER, PF, 50 MCG/0.5 ML OR 25MCG/0.25 ML DOSE 1 2022 EVAN AMIN LEFT DELTO ID [id number] 229 complet ed [facility] IELD INFLUENZA VACCINE, QUADRIVALENT, ADJUVANTED 2022 CRESC[place] EVANS LEFT DELTO ID [id number] 205 complet ed Lot [id number] Expires August 27, 2022 [facility] IELD COVID-19 (PFIZER), MRNA, LNP-S, PF, 30 MCG/0.3 ML DOSE 3 2020 208 complet ed [facility] [place] INFLUENZA VACCINE, QUADRIVALENT, ADJUVANTED 2020 205 complet ed [facility] IELD COVID-19 (MODERNA), MRNA, LNP-S, PF, 100 MCG/0.5 ML DOSE 2 2020 207 complet ed MOD; [id number]; 1 [facility] IELD COVID-19 (MODERNA), MRNA, LNP-S, PF, 100 MCG/0.5 ML DOSE 1 2020 207 complet ed MOD; [id number]; 1 [place] INFLUENZA, HIGH-DOSE, QUADRIVALENT 2019 197 complet ed [facility] INFLUENZA, UNSPECIFIED FORMULATION 2019 88 complet ed [facility] INFLUENZA, SEASONAL, INJECTABLE [...] FLU,3 YRS (HISTORICAL) 2013 88 complet ed [facility] [place] [facility] [...] Nov 01, 2023 11:43 AM Reporting Lab: [facility] [address] [facility] [address] Performing Lab: [facility] [address] [facility] [address] [facility] MAGNESIUM MAGNESIUM [MASS/VOLUM E] IN SERUM OR PLASMA 2.1 mg/dL 1.6 - 2.6 10/31 Specimen Type: SERUM No comment entered. Ordering Provider: JOSE MICHEL Report Released Date/Time: Nov 01, 2023 11:43 AM Reporting Lab: [facility] [address] [facility] [address] Performing Lab: [address] [address] [facility] VITAMIN D 25-OH (Therapy monitor) 25-HYDROXYV [...] additional information , please refer to [email or web address] [email or web address] [email or web address]/faq/FA Q199 (This link is being provided for information al/ educational purposes only.) This test was developed and its analytical performance characteris tics have been determined by [employer] [place], [place]. It has not been cleared or approved by the U.S. Food and Drug Administrat ion. This assay has been validated pursuant to the CLIA regulations and is used for clinical purposes. This test was developed and its analytical performance characteris tics have been determined by [place] It has not been cleared or approved by the U.S. Food and Drug Administrat ion. This assay has been validated pursuant to the CLIA regulations and is used for clinical purposes. Test Performed by [facility], [employer] [place], [address] [place], [place] Mike Porter M.D., Ph.D., Director of Laboratorie s , CLIA [id number] TEST PERFORMED AT: , Ordering Provider: JOSE MICHEL Report Released Date/Time: Nov 01, 2023 11:43 AM Reporting Lab: [facility] [address] [facility] [address] Performing Lab: [facility] [id number] [place] [address] VITAMIN D 25-OH (Therapy monitor) 25-HYDROXYV ITAMIN [...] additional information , please refer to [email or web address] [email or web address] [email or web address]/faq/FA Q199 (This link is being provided for information al/ educational purposes only.) This test was developed and its analytical performance characteris tics have been determined by [employer] [place]. It has not been cleared or approved by the U.S. Food and Drug Administrat ion. This assay has been validated pursuant to the CLIA regulations and is used for clinical purposes. This test was developed and its analytical performance characteris tics have been determined by [place]. It has not been cleared or approved by the U.S. Food and Drug Administrat Tech21. This assay has been validated pursuant to the CLIA regulations and is used for clinical purposes. Test Performed by [facility] [employer] [facility], [employer] [place], [address] [place], [place] Mike Porter M.D., Ph.D., Director of Laboratorie s , CLIA [id number] TEST PERFORMED AT: , Ordering Provider: JOSE MICHEL Report Released Date/Time: Nov 01, 2023 11:43 AM Reporting Lab: [email or web address] [address] [facility] [facility] [address] Performing Lab: [facility] [address] [address] [facility] VITAMIN D 25-OH (Therapy monitor) CALCIFEROL (VIT [...] additional information , please refer to [email or web address] [email or web address] [email or web address]/faq/FA Q199 (This link is being provided for information al/ educational purposes only.) This test was developed and its analytical performance characteris tics have been determined by [employer] [place]. It has not been cleared or approved by the U.S. Food and Drug Administrat Tech21. This assay has been validated pursuant to the CLIA regulations and is used for clinical purposes. This test was developed and its analytical performance characteris tics have been determined by [place]. It has not been cleared or approved by the U.S. Food and Drug Administrat ion. This assay has been validated pursuant to the CLIA regulations and is used for clinical purposes. Test Performed by [facility] [place] [facility], [facility] [employer] [facility], [address] [place] [address] Mike Porter M.D., Ph.D., Director of Laboratorie s , CLIA [id number] TEST PERFORMED AT: , Ordering Provider: JOSE MICHEL Report Released Date/Time: Nov 01, 2023 11:43 AM Reporting Lab: [facility] [place] [facility] [address] [facility] [address] Performing Lab: [facility] [address] [facility] FERRITIN FERRITIN [MASS/VOLUM E] IN SERUM OR PLASMA 84 ng/mL 20 - 300 10/27 Specimen Type: SERUM No comment entered. Ordering Provider: JOSE MICHEL Report Released Date/Time: Oct 21, 2023 02:23 PM Reporting Lab: [facility] [place] [facility] [address] [facility] [address] Performing Lab: [facility] [address] [facility] [facility] [address] [facility] FOLATE (WROX) FOLATE [MASS/VOLUM E] IN SERUM OR PLASMA >20.00 ng/mL 5.2 10/27 Specimen Type: SERUM No comment entered. Ordering Provider: JOSE MICHEL Report Released Date/Time: Oct 21, 2023 02:23 PM Reporting Lab: [facility] [place] [facility] [address] [facility] [facility] [address] Performing Lab: [facility] [address] [facility] [address] [facility] IRON & TIBC PANEL IRON BINDING CAPACITY [MASS/VOLUM E] IN SERUM OR PLASMA 347 ug/dL 204 - 475 10/27 Specimen Type: SERUM No comment entered. Ordering Provider: JOSE MICHEL Report Released Date/Time: Oct 21, 2023 02:23 PM Reporting Lab: [facility] [place] [facility] [address] [facility] [address] Performing Lab: [facility] [place] [facility] [address] [facility] [address] [place] [facility] [place] [facility] IRON & TIBC PANEL IRON [MASS/VOLUM E] IN SERUM OR PLASMA 101 ug/dL 40 - 160 10/27 Specimen Type: SERUM No comment entered. Ordering Provider: JOSE MICHEL Report Released Date/Time: Oct 21, 2023 02:23 PM Reporting Lab: [facility] [place] [facility] [address] [facility] [address] Performing Lab: [place] [facility] [place] [facility] [address] [facility] [facility] [address] [facility] [place] [facility] IRON & TIBC PANEL IRON/IRON BINDING CAPACITY.TO KATHRYN [MASS RATIO] IN SERUM OR PLASMA 29.1 20.0 - 50.0 10/27 Specimen Type: SERUM No comment entered. Ordering Provider: JOSE MICHEL Report Released Date/Time: Oct 21, 2023 02:23 PM Reporting Lab: [facility] [place] [facility] [address] [facility] [facility] [address] Performing Lab: [facility] [place] [facility] [address] [facility] [address] [facility] [place] [facility] VITAMIN B12 COBALAMIN (VITAMIN B12) [MASS/VOLUM E] IN SERUM OR PLASMA 571 pg/mL 200 - 900 10/27 Specimen Type: SERUM No comment entered. Ordering Provider: JOSE MICHEL Report Released Date/Time: Oct 21, 2023 02:23 PM Reporting Lab: [facility] [place] [facility] [address] [facility] [facility] [address] Performing Lab: [place] [facility] [place] [facility] [address] [facility] [address] [facility]N [place] [facility] HEMOGLOBI N A1C PANEL HEMOGLOBIN [...] May 03, 2023 09:13 AM Reporting Lab: [facility] [address] [facility] [address] Performing Lab: [address] [address] [facility] LIPID PANEL FASTING CHOLESTEROL [MASS/VOLUM E] IN SERUM OR PLASMA 91 mg/dL 10/27 Specimen Type: SERUM No comment entered. Ordering Provider: JOSE MICHEL Report Released Date/Time: May 03, 2023 09:13 AM Reporting Lab: [facility] [address] [facility] [address] Performing Lab: [facility] [address] [facility] [facility] [address] [facility] LIPID PANEL FASTING TRIGLYCERID E [MASS/VOLUM E] IN SERUM OR PLASMA 84 mg/dL 0 - 150 10/27 Specimen Type: SERUM No comment entered. Ordering Provider: JOSE MICHEL Report Released Date/Time: May 03, 2023 09:13 AM Reporting Lab: [facility] [address] [facility] [address] Performing Lab: [address] [address] [facility] LIPID PANEL FASTING CHOLESTEROL IN LDL [MASS/VOLUM E] IN SERUM OR PLASMA BY CALCULATION 28 mg/dL 0 - 129 10/27 Specimen Type: SERUM No comment entered. Ordering Provider: JOSE MICHEL Report Released Date/Time: May 03, 2023 09:13 AM Reporting Lab: [place] [facility] [facility] [address] [facility] [address] Performing Lab: [place] [facility] [place] [facility] [address] [facility] [address] [facility] WSTRN [facility] LIPID PANEL FASTING CHOLESTEROL .TOTAL/CHOL ESTEROL IN HDL [MASS RATIO] IN SERUM OR PLASMA 2.0 10/27 Specimen Type: SERUM No comment entered. Ordering Provider: JOSE MICHEL Report Released Date/Time: May 03, 2023 09:13 AM Reporting Lab: [facility]RL TRN [facility] [address] [facility] [address] Performing Lab: [facility]RL WSTRN [facility]OSPITALUSETS [facility] [address] [facility] [facility] [address] [facility]RW[facility]ITALTRN [facility] LIPID PANEL FASTING CHOLESTEROL IN HDL [MASS/VOLUM E] IN SERUM OR PLASMA 46 mg/dL 40 - 60 10/27 Specimen Type: SERUM No comment entered. Ordering Provider: JOSE MICHEL Report Released Date/Time: May 03, 2023 09:13 AM Reporting Lab: [facility]ITALRL TRN [facility]OSPITALUSETS [facility] [address] [facility] [address] Performing Lab: [place] [facility]ITAL[facility]ETS [facility] [address] [facility] [facility] [address] [facility]ITALRL RUSTN [facility] LIVER FUNCTION PROTEIN [MASS/VOLUM E] IN SERUM OR PLASMA 6.9 g/dL 6.0 - 8.3 10/27 Specimen Type: SERUM No comment entered. Ordering Provider: JOSE MICHEL Report Released Date/Time: May 03, 2023 09:13 AM Reporting Lab: [facility] [place] [facility] [address] [facility] [address] Performing Lab: [place] [facility] [place] [facility] [address] [facility] [address] [facility] WSTRN [facility] LIVER FUNCTION ALBUMIN [MASS/VOLUM E] IN SERUM OR PLASMA 4.0 g/dL 3.5 - 5.0 10/27 Specimen Type: SERUM No comment entered. Ordering Provider: JOSE MICHEL Report Released Date/Time: May 03, 2023 09:13 AM Reporting Lab: [facility] [place] [facility] [address] [facility] [facility] [address] Performing Lab: [place] [facility] [place] [facility] [address] [facility] [address] [place] [facility] [place] [facility] LIVER FUNCTION ALKALINE PHOSPHATASE [ENZYMATIC ACTIVITY/VO LUME] IN SERUM OR PLASMA 132 U/L 40 - 150 10/27 Specimen Type: SERUM No comment entered. Ordering Provider: JOSE MICHEL Report Released Date/Time: May 03, 2023 09:13 AM Reporting Lab: [place] [facility] [place] [facility] [address] [facility] [address] Performing Lab: [place] [facility] [place] [place] [facility] [address] [facility] [address] [place] [facility] [place] [facility] LIVER FUNCTION ASPARTATE AMINOTRANSF ERASE [ENZYMATIC ACTIVITY/VO LUME] IN SERUM OR PLASMA 32 U/L 5 - 34 10/27 Specimen Type: SERUM No comment entered. Ordering Provider: JOSE MICHEL Report Released Date/Time: May 03, 2023 09:13 AM Reporting Lab: [facility] [place] [facility] [address] [facility] [address] Performing Lab: [place] [facility] [place] [place] [facility] [address] [facility] [address] [place] [facility] [place] [facility] LIVER FUNCTION ALANINE AMINOTRANSF ERASE [ENZYMATIC ACTIVITY/VO LUME] IN SERUM OR PLASMA 35 U/L 10/27 Specimen Type: SERUM No comment entered. Ordering Provider: JOSE MICHEL Report Released Date/Time: May 03, 2023 09:13 AM Reporting Lab: [place] [facility] [place] [facility] [address] [facility] [address] Performing Lab: [place] [facility] [place] [facility] [address] [facility] [address] [place] [facility] [place] [facility] LIVER FUNCTION BILIRUBIN.T OTAL [MASS/VOLUM E] IN SERUM OR PLASMA 1.0 mg/dL 0.2 - 1.2 10/27 Specimen Type: SERUM No comment entered. Ordering Provider: JOSE MICHEL Report Released Date/Time: May 03, 2023 09:13 AM Reporting Lab: [facility] [address] [facility] [address] Performing Lab: [facility] [address] [facility] [address] [facility] Vital Signs Combined list of inpatient and outpatient Vital Signs from Department of Defense and Veterans Affairs, ranging from 12 months to all on record, depending upon the facility. Vital Sign Value Date Comments Source SYSTOLIC BLOOD PRESSURE 118 11/01/19 24 11:10:36 [facility] DIASTOLIC BLOOD PRESSURE 79 024 11:10:36 [facility] PULSE OXIMETRY 97 11/01/2023 11:10:36 [facility] WEIGHT 219.4 11/01/2023 11:10:36 [facility] BMI 35kg/m2 11/01/2023 11:10:36 [facility] PAIN 0 11/01/2023 11:10:36 [facility] HEIGHT 66 11/01/2023 11:10:36 [facility] TEMPERATURE 96.1 11/01/2023 11:10:36 [facility] PULSE 62 11/01/2023 11:10:36 [facility] RESPIRATION 20 11/01/2023 11:10:36 [facility] SYSTOLIC BLOOD PRESSURE 113 08/18/19 24 11:48:23 [place] DIASTOLIC BLOOD PRESSURE 68 024 11:48:23 [place] PULSE OXIMETRY 95 08/18/2023 11:48:23 [place] TEMPERATURE 97.8 08/18/2023 11:48:23 [place] PULSE 66 08/18/2023 11:48:23 [place] SYSTOLIC BLOOD PRESSURE 122 05/14/19 24 09:47:00 [place] DIASTOLIC BLOOD PRESSURE 77 024 09:47:00 [place] PULSE OXIMETRY 97 05/14/2023 09:47:00 [place] PAIN 0 05/14/2023 09:47:00 [place] TEMPERATURE 98 05/14/2023 09:47:00 [place] PULSE 67 05/14/2023 09:47:00 [place] RESPIRATION 15 05/14/2023 09:47:00 [place] SYSTOLIC BLOOD PRESSURE 125 05/07/19 24 10:26:13 [place] DIASTOLIC BLOOD PRESSURE 74 024 10:26:13 [place] PULSE OXIMETRY 97 05/07/2023 10:26:13 [place] PAIN 0 05/07/2023 10:26:13 [place] TEMPERATURE 98.7 05/07/2023 10:26:13 [place] PULSE 63 05/07/2023 10:26:13 [place] RESPIRATION 16 05/07/2023 10:26:13 [place] SYSTOLIC BLOOD PRESSURE 127 05/06/19 24 09:50:08 [place] DIASTOLIC BLOOD PRESSURE 80 024 09:50:08 [place] PULSE OXIMETRY 95 05/06/2023 09:50:08 [place] PAIN 2 05/06/2023 09:50:08 [place] TEMPERATURE 98.5 05/06/2023 09:50:08 [place] PULSE 71 05/06/2023 09:50:08 [place] RESPIRATION 18 05/06/2023 09:50:08 [place] Encounters Combined list of: 1) Encounters from Department of [facility] Affairs facilities [facility] 2) Encounters from the Department of Defense facilities going back up to 280 months. Location Location Details Encounter Type Encounter Number Reason For Visit Attending Provider ADM Date DC Date Status Disposition Source [facility] Outpatient Encounter [id number] 09/25 [facility] [place] PSYTX W PT 60 MINUTES [id number] Diagnos is: ICD-10- CM F43.12 Post-tr aumatic stress disorde r, chronic
LUIS,DEBOR 09/25 [place] [facility] Out[facility] Encounter [id number] 09/29 [facility] [place] OFF/OP EST AUGUST X REQ PHY/QHP [id number] Diagnos is: ICD-10- CM E78.00 Pure hyperch olester olemia, unspeci fied
SONIDO,L SHAY H 09/29 [place] [facility] Out[facility] Encounter [id number] 10/01 [facility] Encounter [id number] 10/01 [facility] Encounter [id number] 10/12 [facility] [place] PSY[place] W PT 60 MINUTES [id number] Diagnos is: ICD-10- CM F43.12 Post-tr aumatic stress disorde r, chronic
HERMINIO SMITH 10/29 [place] W PT 60 MINUTES [id number] Diagnos is: ICD-10- CM F43.12 Post-tr aumatic stress disorde r, chronic
HERMINIO SMITH 12/01 [place] PSY[place] W PT 60 MINUTES [id number] Diagnos is: ICD-10- CM F43.12 Post-tr aumatic stress disorde r, chronic
HERMINIO SMITH 01/01 [place] [facility] Out[facility] Encounter [id number] MAYDA GALLEGOS 01/21 [facility] Encounter [id number] 01/24 [facility] Encounter [id number] 01/24 [facility] [place] OFF/OP EST AUGUST X REQ PHY/QHP [id number] Diagnos is: ICD-10- CM Z23 Encount er for immuniz ation<b r/> Claude HEAD H 01/28 [place] W PT 60 MINUTES [id number] Diagnos is: ICD-10- CM F43.12 Post-tr aumatic stress disorde r, chronic
HERMINIO SMITH AH 01/29 [place] [facility] Out[facility] Encounter [id number] 02/02 [facility] Encounter [id number] 03/08 [facility] Out[facility] Encounter [id number] 03/09 [facility] Out[facility] Encounter [id number] 03/09 [facility] [place] PSY[place] W PT 60 MINUTES [id number] Diagnos is: ICD-10- CM F43.12 Post-tr aumatic stress disorde r, chronic
NINA SMITHOR 03/11 [place] [facility] Out[facility] Encounter [id number] 03/15 [facility] Encounter [id number] 03/17 [facility] Out[facility] Encounter [id number] 03/17 [facility] Out[facility] Encounter [id number] 03/23 [facility] [place] PSY[place] W PT 60 MINUTES [id number] Diagnos is: ICD-10- CM F43.12 Post-tr aumatic stress disorde r, chronic
HERMINIO SMITH 04/13 [place] [facility] Out[facility] Encounter [id number] 04/21 [facility] Out[facility] Encounter [id number] 04/28 [facility] [place] OFF/OP EST AUGUST X REQ PHY/QHP [id number] [id number] 10 Diagnos is: ICD-10- CM L02.212 Cutaneo us abscess of back [any part, except buttock ]
NAN,ER IC K 04/28 [place] [facility] Out[facility] Encounter [id number] 04/28 [facility] [place] O/P EST SF 10 MIN [id number] Diagnos is: ICD-10- CM L02.91 [place] us abscess , unspeci fied
IZABELLA,BASIL NDRA C 04/28 [place] OFF/OP EST AUGUST X REQ PHY/QHP [id number] Diagnos is: ICD-10- CM L02.91 [place] us abscess , unspeci fied
Claude HEAD SHAY H 04/30 [place] [facility] Outpatient Encounter [id number] 04/30 [facility] [place] OFF[place] O/P EST LOW 20 MIN [id number] Diagnos is: ICD-10- CM L02.212 [place]aneo us abscess of back [any part, except buttock ]
BASIL PAREKH NDRA C 04/30 [place] O/P EST LOW 20 MIN [id number] Diagnos is: ICD-10- CM L72.3 Sebaceo us cyst
MARILU,A POLIBENIGNOIO 05/03 [place] [facility] Outpatient Encounter [id number] 05/06 [facility] [place] [place] Outpatient Encounter [id number] 05/06 [facility] [place] [place] OFF/OP EST AUGUST X REQ PHY/QHP [id number] [id number] Diagnos is: ICD-10- CM L02.212 [place] us abscess of back [any part, except buttock ]
KWASI MONTANA IC K 05/06 [place] [facility] Encounter [id number] 05/07 [facility] Outpatient Encounter [id number] 05/07 [facility] [place] OFF/OP EST MAY X REQ PHY/QHP [id number] Diagnos is: ICD-10- CM L02.212 [place] us abscess of back [any part, except buttock ]
NANKWASI EDWARDS IC K 05/07 [place] [facility] Outpatient Encounter [id number] 05/07 [facility] [place] [place] OFF[place] O/P EST LOW 20 MIN [id number] Diagnos is: ICD-10- CM L02.212 [place] us abscess of back [any part, except buttock ]
BASIL PAREKH 05/07 [place] [facility] [place] [facility] Outpatient Encounter [id number] 05/11 [facility] [place] PSYTX W PT 60 MINUTES [id number] Diagnos is: ICD-10- CM F43.12 Post-tr aumatic stress disorde r, chronic
LUIS,DEBOR AH 05/13 [place] OFF/OP EST AUGUST X REQ PHY/QHP [id number] Diagnos is: ICD-10- CM L02.212 [place] us abscess of back [any part, except buttock ]
KWASI MONTANA IC K 05/14 [place] O/P EST LOW 20 MIN [id number] Diagnos is: ICD-10- CM L02.212 [place] us abscess of back [any part, except buttock ]
BASIL PAREKH C 05/14 [place] [facility] Out[facility] Encounter [id number] 05/14 [facility] En[facility] [id number] [facility] [place] PSY[place] W PT 60 MINUTES [id number] Diagnos is: ICD-10- CM F43.12 Post-tr aumatic stress disorde r, chronic
[facility] [place] W PT 60 MINUTES [id number] 22 Diagnos is: ICD-10- CM F43.12 Post-tr aumatic stress disorde r, chronic
[facility] 07[facility]07 [place] [facility] Out[facility] Encounter [id number] 08/08 [facility] Out[facility] Encounter [id number] 08/08 [facility] [place] PSYTX W PT 60 MINUTES [id number] Diagnos is: ICD-10- CM F43.12 Post-tr aumatic stress disorde r, chronic
[facility] [place]OP EST AUGUST X REQ PHY/QHP [id number] 69 Diagnos is: ICD-10- CM M79.644 Pain in right finger( s)
STEPHANIA MULLER 08/17 [place] [facility] Out[facility] En[facility] [id number] 08/17 [facility] [place] O/P EST MOD 30 MIN [id number] 21 Diagnos is: ICD-10- CM M79.674 Pain in right toe(s)< br/> BASIL PAREKH 08/17 [facility] [place] PSYTX W PT 60 MINUTES [id number] [id number] 25 Diagnos is: ICD-10- CM F43.12 Post-tr aumatic stress disorde r, chronic
HERMINIO SMITH 09/15 [place] [facility] Out[facility] Encounter [id number] 09/19 [facility] Out[facility] Encounter [id number] 09/19 [facility] Out[facility] Encounter [id number] 09/19 [facility] Out[facility] Encounter [id number] 09/21 [facility] Out[facility] Encounter [id number] 09/21 [facility] [place] [place] [facility] [place] PSYTX W PT 60 MINUTES [id number] Diagnos is: ICD-10- CM F43.12 Post-tr aumatic stress disorde r, chronic
HERMINIO SMITH 10/27 [facility]P EST MOD 30 MIN [id number] Diagnos is: ICD-10- CM Z00.01 Encount er for general adult medical exam w abnorma l finding s
Kilo MICHEL 10/31 [place] [facility] Out[facility] Encounter [id number] 11/14 [facility] Out[facility] Encounter [id number] 11/14 [facility] Out[facility] Encounter [id number] 11/14 [facility] Out[facility] Encounter [id number] 11/14 [facility] [place] PSYTX W PT 60 MINUTES [id number] Diagnos is: ICD-10- CM F43.12 Post-tr aumatic stress disorde r, chronic
HERMINIO SMITH 12/08 [place] [facility] Out[facility] Encounter [id number] 12/08 [facility] Out[facility] Encounter [id number] 12/08 [facility] [place] [place] Out[facility] Encounter [id number] Kilo MICHEL 12/[address] [facility] [place] [facility] [place]631GE[place] [id number] Diagnos is: ICD-10- CM E66.9 Obesity , unspeci fied
KILLIAN VELASCO RA 12/20 [facility] (631GE) [facility] (6[facility] [id number] Diagnos is: ICD-10- CM E66.9 Obesity , unspeci fied
KILLIAN VELASCO RA 12/27 [facility] (631GE[facility] Outpatient Encounter [id number] 1.12/29 [facility] Outpatient Encounter [id number] 1.12/29 [facility] Outpatient Encounter [id number] 1.12/29 [facility] [place] [place] [facility] (631GE) Outpatient Encounter [id number] 01/03 [facility] (631GE) [place] PSYTX W PT 60 MINUTES [id number] Diagnos is: ICD-10- CM F43.12 Post-tr aumatic stress disorde r, chronic
LUIS,DEBOR AH 01/05 [place] [facility] Outpatient Encounter [id number] 01/05 [place] [facility] [place] [facility] (631GE[place] [id number] 1GE. 13 Diagnos is: ICD-10- CM E66.3 Overwei ght<br/ > KILLIAN VELASCO RA 01/10 [facility] (631GE[facility] Out[facility] Encounter [id number] [facility] Outpatient Encounter [id number] 1.01/30 [facility] [place] [place] [facility] [place] OFF/OP EST AUGUST X REQ PHY/QHP [id number] Diagnos is: ICD-10- CM Z23 Encount er for immuniz ation<b r/> KATHERINE GAR [place] [facility] Outpatient Encounter [id number] 1.02/08 [facility] [place] [facility] Outpatient Encounter [id number] 1.02/08 [facility] [place] [facility] [facility] PT 60 MINUTES [id number] Diagnos is: ICD-10- CM F43.12 Post-tr aumatic stress disorde r, chronic
LUIS,DEBOR AH 02/09 [place] [facility] Outpatient Encounter [id number] 1.02/17 [facility] [place] [place] PT 60 MINUTES [id number] Diagnos is: ICD-10- CM F43.12 Post-tr aumatic stress disorde r, chronic
LUIS,DEBOR AH 03/16 [place] [facility] [facility] Outpatient Encounter [id number] 1. Claude HEAD 03/17 [facility] [place] [facility] Outpatient Encounter [id number] 1.03/17 [facility] [place] [facility] [place] Outpatient Encounter [id number] 03/20 [facility] [place] [facility] Social History Combined list of available smoking, tobacco, and other social history from Department of Defense and Veterans Affairs facilities. Social History Type Response Date Comment [facility] e Tobacco smoking status [facility] VA-TOBACCO NEVER USED 11/01/2023 [facility] D [facility] of [facility]2022 [place] [facility]/21[facility]2021 [place] [facility]/14[facility]2020 [place] [facility] Y[facility] OR MORE 07/05/2018 [place] History of tobacco use QUIT TOBACCO USE > 7 YEARS AGO 05/19/2017 [place] History of tobacco use QUIT TOBACCO USE > 7 YEARS AGO 04/29/2016 Quit 20 years ago [place] History of tobacco use QUIT TOBACCO USE > 7 YEARS AGO 03/21/2015 [place] History of tobacco use QUIT TOBACCO USE > 7 YEARS AGO 05/03/2012 [place] Plan of Care List of future care activities from Department of [facility] Affairs facilities. Additional future care activities may be listed in the Assessment and Plan section. Date/Time Care Activity Care Activity Detail [facility] 04/20/2024 AMBULATORY - PSYCHIATRY [facility] [place] 05/03/2024 Laboratory - Chief Lock Operator ry Order VITAMIN D 25-OH (Therapy monitor) BLOOD (SST-SERUM) [facility] 05/03/2024 Laboratory - Chief Lock Operator ry Order VITAMIN B12 BLOOD (SST-SERUM) [facility] 05/03/2024 Laboratory - Chief Lock Operator ry Order MAGNESIUM BLOOD (SST-SERUM) [facility] 05/03/2024 Laboratory - Chief Lock Operator ry Order BASIC METABOLIC PANEL (fasting) BLOOD (SST-SERUM) [facility] 05/03/2024 Laboratory - Chief Lock Operator ry Order LIPID PANEL FASTING BLOOD (SST-SERUM) [facility] 05/03/2024 Laboratory - Chief Lock Operator ry Order CBC AND DIFF (AUTO) BLOOD (LAV-BLOOD) [facility] 05/03/2024 Laboratory - Chief Lock Operator ry Order LIVER FUNCTION BLOOD (SST-SERUM) [facility] 05/03/2024 Laboratory - Chief Lock Operator ry Order HEMOGLOBIN A1C PANEL BLOOD (LAV-BLOOD) [facility] 05/03/2024 Laboratory - Chief Lock Operator ry Order TSH BLOOD (SST-SERUM) [facility]
--- OUTSIDE RECORDS SUMMARY | 2024-03-23 14:46 | XMS_ITS | Encounter Summary ---
Author Name [facility] [place] [facility] [place] Address [address] [place] [address] Care Team Providers Care Air Carrier Operations Inspector Name Role Phone BALTA MICHEL Primary [...] O MEDEX BRONZ E Apr 12, 2014 [id number] [phone] WILLOREN, OM[place] PATIENT [place] SUPP[employer] KATHRYN MEDEX BRONZ E Mar 12, 2013 [id number] WILL[place]EN, [place] PATIENT [place] KATHRYN MEDEX BRONZ E Mar 12, 2013 [id number] [phone] ALLI, OMAS PATIENT MEDICARE (WNR) MEDICARE (M) PART A Feb 10, 2013 PART A [id number] BENITO CARSON PATIENT MEDICARE (WNR) MEDICARE (M) PART B Feb 10, 2013 PART B [id number] BENITO CARSON PATIENT MEDICARE (WNR) MEDICARE (M) PART A Feb 10, 2013 PART A [id number] BENITO CARSON PATIENT MEDICARE (WNR) MEDICARE (M) PART B Feb 10, 2013 PART B [id number] [phone] BENITO CARSON PATIENT Selected Encounter This [...] AMBULATORY - PSYCHIATRY [facility] Active, Pending, and Scheduled Orders This section includes a listing of several types of active, pending, and scheduled orders, including clinic medications orders, diagnostic test orders, procedure orders and consult orders; where the start date of the order is 45 days before the date of the Encounter or 45 days after the date of theEncounter. The data comes from all [place] treatment facilities. Test Date/Time Test Type Test Details Facility Name Mar 23, 2024 08:55 AM Consult Order [facility] Cons Strategic Debriefing Officer's Choice [facility] May 03, 2024 12:00 AM Laboratory - Chemistry Order VITAMIN D 25-OH (Therapy monitor) BLOOD ([facility]UM[facility] [place] [facility] May 03, 2024 12:00 AM Laboratory - Chemistry Order VITAMIN B12 BLOOD (SST-SERUM) [facility] May 03, 2024 12:00 AM Laboratory - Chemistry Order MAGNESIUM BLOOD (SST-SERUM) [facility] May 03, 2024 12:00 AM Laboratory - Chemistry Order BASIC METABOLIC PANEL (fasting) BLOOD (SST-SERUM) [facility] May 03, 2024 12:00 AM Laboratory - Chemistry Order LIVER FUNCTION BLOOD (SST-SERUM) [facility] May 03, 2024 12:00 AM Laboratory - Chemistry Order CBC AND DIFF (AUTO) BLOOD (LAV-BLOOD) [facility] May 03, 2024 12:00 AM Laboratory - Chemistry Order HEMOGLOBIN A1C PANEL BLOOD (LAV-BLOOD) [facility] May 03, 2024 12:00 AM Laboratory - Chemistry Order LIPID PANEL FASTING BLOOD (SST-SERUM) [facility] May 03, 2024 12:00 AM Laboratory - Chemistry Order TSH BLOOD (SST-SERUM) [facility] Encounter Notes: All associated encounter notes This section contains the clinical notes associated to the Encounter. Date/Time Encounter Note(s) Provider Source Mar 20, 2024 02:36 PM ADMINISTRATIVE NOT E: LOCAL TITLE: ADMINISTRATIVE NOTE STANDARD TITLE: ADMINISTRATIVE NOTE DATE OF NOTE: MAR 20, 2024@14:36 ENTRY DATE: MAR 20, 2024@14:36:24 AUTHOR: RONEN BARROW EXP COSIGNER: URGENCY: STATUS: COMPLETED ADMINISTRATIVE NOTE Has ADDENDA [place] is scheduled for a 6mth follow up on 03/22/2024 @ 11:00, current consult has , a new consult is needed if approved [facility] [address] [place] [address], [address] [place], [place] PH: [phone] FX: [phone] /lili/ RONEN BARROW Signed: 03/20/2024 14:37 Receipt Acknowledged By: * AWAITING SIGNATURE * BALTA MICHEL 03/23/2024 10:23 /es/ MAYDA GALLEGOS LPN LPN 03/20/2024 14:40 /es/ VONDA DOVE SERVICES HOST 03/22/2024 22:47 /lili/ DESIREE MEDINA RN-BC REGISTERED NURSE for MIGUEL HEAD 03/22/2024 ADDENDUM STATUS: COMPLETED Placed Gastroenterology continuation of care consult as requested and held for provider review /lili/ DESIREE MEDINA RN-BC REGISTERED NURSE Signed: 03/22/2024 22:52 RONEN BARROW CNTRL WSTRChristiano FLETCHER
[2024-03-30 19:43] LABS: Pancreatic Elastase-1 >800 mcg/g (>200)
== END 2024-03-23 14:40 | disposition home or self-care (01) ==
LOC: HO.LNP 14:39
PROVIDERS: Visit Provider Nurse Practitioner Family
DX: R10.9 Unspecified abdominal pain (principal)
CPT/HCPCS: 82656

== ENCOUNTER 2024-08-22 10:12 | Outpatient (AMB) | payer OTHER, SELFPAY ==
--- NOTE | 2024-08-22 10:14 | MHC.OFFVIS ---
Vital Signs 08/22/24 10:20 Height 5 ft 6 in Weight 220 lb BMI 35.5 BP 126/76 Blood Pressure Location Rt brachial Position Sitting Pulse 64 Pulse Source Pulse Oximeter Pulse Oximetry (%) 95 Oxygen Delivery Method Room Air Intake Visit Reasons: 6 mos FUV. Intake Note: ESTABLISHED PATIENT for GERD + IBS mgmt. Labs done. Chief Complaint; Pt denies any GI sx at this time. Pt reports stools are perfect at this time. Insulation Helper Required: No Accompanied by: Self / Same As Patient Allergies No Known Allergies [No Known Allergies*] Allergy (Verified 08/22/24 10:15) Medication List - Last Reconciled 08/22/24 by KAPIL CoronadoP- aspirin (Adult Low Dose Aspirin) 81 mg PO DAILY diclofenac sodium 50 mg PO BID diphenoxylate-atropine 2.5-0.025 mg (Lomotil) 1 tab PO BID PRN evolocumab (Repatha SureClick) 140 mg subcut Q2W hydrochlorothiazide 25 mg PO DAILY levothyroxine 25 mcg PO DAILY lisinopril 10 mg PO DAILY methylcellulose (laxative) (Citrucel) 1,000 mg (2 x 500 mg) PO DAILY omeprazole 20 mg PO DAILY rosuvastatin (Crestor) 20 mg PO DAILY simethicone (Gas Relief (simethicone)) 480 mg PO BID-TID PRN HPI HPI 6 mos FUV.: Details: LAST VISIT: Diverticulosis Diarrhea IBS (irritable bowel syndrome) Postprandial abdominal bloating GERD (gastroesophageal reflux disease) Plan Patient will continue taking fiber. Avoid dietary triggers. Patient has a list of food to avoid at home. Lactose free milk, sour though bread recommended. Will check vitamin B12, folate rule out pancreatic insufficiency and check vitamin-D level. Avoid dietary triggers and late night snacking. Staying upright for minimum 3 hours after meals discussed with patient. Patient will return in 6 months. However patient will call our office if he will have any GI concerning symptoms. Patient is agreeable to plan of care and verbalizes understanding of instructions. He was given the opportunity to ask questions and all questions answered. ? Thank you for allowing me to participate in his care Orders Orders Vitamin B12 and Folate Today R19.7 Pancreatic Elastase-1 Today R10.9 Vitamin D 25-OH (D2 and D3) Today TODAY'S VISIT: Patient is here today for follow-up. Patient reports that he has been feeling well. Denies any abdominal pain or discomfort. Denies any abdominal bloating. Reports that his bowels normalized,no longer is having diarrhea. Patient reports that he has not change any coffee diet, however he is using Citrucel daily. Patient had colonoscopy in 2022, recommendation for 10 year screening recommended. Patient denies melena, hematochezia, unintentional weight loss or ribbon like stools. Patient denies any dyspepsia, dysphagia or odynophagia. Patient reports that he is taking [id number] omeprazole as he is taking diclofenac for arthritis twice a day. Patient denies any acid reflux. [facility] Medical History GERD (gastroesophageal reflux disease) Diverticulosis Hypercholesteremia Hypothyroid Hypertension Surgical History Hx of colonoscopy Hx of right knee surgery Hx of left knee surgery Family History Father Hypothyroidism determined by thyroid function test Mother HTN (hypertension) Social History Household Members: None Alcohol intake: current Patient Tobacco Use Status: Former Tobacco user Substance Use Type: Marijuana Review of Systems Const Denies weight gain and Denies weight loss ENT Reports no additional complaints, Denies dysphagia and Denies odynophagia Card Reports no additional complaints Resp Reports no additional complaints GI Denies abdominal pain, Denies belching, Denies melena, Denies bloating, Denies change in bowel habits, Denies dysphagia, Denies excessive flatus, Denies dyspepsia, Denies heartburn, Denies diarrhea, Denies loose stools, Denies nausea, Denies odynophagia and Denies vomiting Reports no additional complaints Musc Reports no additional complaints Neuro Reports no additional complaints Psych Reports no additional complaints Endo Reports no additional complaints Physical Exam Vital Signs: Last Vital Signs Pulse 64 08/22/24 10:20 BP 126/76 08/22/24 10:20 Pulse Ox 95 08/22/24 10:20 Oxygen Delivery Method Room Air 08/22/24 10:20 BMI result Body Mass Index 35.5 Const General: healthy appearing and no acute distress Nutritional Appearance: obese Orientation/consciousness: patient oriented x3 Resp Effort & Inspection: normal respiratory effort, able to speak in complete sentences, no tracheal deviation and symmetric chest movement Auscultation: clear to auscultation bilaterally Cardio Rate: regular rate GI Inspection: Yes normal to inspection, No distended and Yes obesity Palpation (GI): Soft to palpation, not firm, nontender and No hepatosplenomegaly present Auscultation: normal bowel sounds General: Yes no CVA tenderness Back/Spine/Pelvis Back: no CVA tenderness Skin General skin exam: elasticity normal, turgor normal and dry skin Neuro General: patient oriented x3 Psych Appearance: grossly normal Mental Status: mental status grossly normal Affect: normal affect Assessment & Plan Assessment & Plan (1) Diverticulosis: Code(s): K57.90 - Diverticulosis of intestine, part unspecified, without perforation or abscess without bleeding Category: Medical (2) GERD (gastroesophageal reflux disease): Code(s): K21.9 - Gastro-esophageal reflux disease without esophagitis Category: Medical Qualifiers: Esophagitis presence: esophagitis presence not specified Qualified Code(s): K21.9 - Gastro-esophageal reflux disease without esophagitis (3) Diarrhea: Code(s): R19.7 - Diarrhea, unspecified Qualifiers: Diarrhea type: functional diarrhea Qualified Code(s): K59.1 - Functional diarrhea (4) IBS (irritable bowel syndrome): Code(s): K58.9 - Irritable bowel syndrome, unspecified Qualifiers: Irritable bowel syndrome type: with both diarrhea and constipation Qualified Code(s): K58.2 - Mixed irritable bowel syndrome (5) Postprandial abdominal bloating: Code(s): R14.0 - Abdominal distension (gaseous) Plan Patient will continue high-fiber diet. Continue avoiding dietary triggers. Patient will call the office if he will have loose stools for more than 24 hours. Avoid late night snacking. Staying upright for minimum 3 hours after meals discussed with patient. Continue omeprazole daily. Patient was encouraged to increase fluid and activity to promote better bowel motility. Follow-up in 6 months, sooner on as needed basis. Patient is agreeable to this plan and verbalizes understanding of instructions. He was given the opportunity to ask questions and all questions answered. Thank you for allowing me to participate in his care Medications: New omeprazole 20 mg PO DAILY 90 caps 4RF Coding Level of Care Code Est Pt Level 3 (10162) Diagnoses Diverticulosis K57.90 Gastroesophageal reflux disease, unspecified whether esophagitis present K21.9 Esophagitis presence: esophagitis presence not specified Functional diarrhea K59.1 Diarrhea type: functional diarrhea Irritable bowel syndrome with both constipation and diarrhea K58.2 Irritable bowel syndrome type: with both diarrhea and constipation Postprandial abdominal bloating R14.0 Time Spent (min) 25 Comment 15 minutes spent with patient and additional 10 minutes spent reviewing his records
[2024-08-22 10:20] VITALS: BP 126/76; PULSE 64; O2SAT 95; BMI 35.5
--- OUTSIDE RECORDS SUMMARY | 2024-08-22 11:14 | XMS_ITS | Encounter Summary ---
Author Name [facility] [place] Address [address] [place] [address] Care Team Providers Care Pyrotechnician Name Role Phone ARNOLDO PERSAUD Primary Care Provider Unavailab le Insurance Providers: All historical and current Section [...] O MEDEX BRONZ E Apr 12, 2014 [id number] WILUSZ,TH [place] PATIENT [place] SUPPLEMEN KATHRYN MEDEX BRONZ E Mar 12, 2013 [id number] WILZ,TH [place] SU[place] KATHRYN MEDEX BRONZ E Mar 12, 2013 [id number] WILLOREN,TH OMAS PATIENT MEDICARE (WNR) MEDICARE (M) PART A Feb 10, 2013 PART A [id number] [facility] BENITO CARSON PATIENT MEDICARE (WNR) MEDICARE (M) PART B Feb 10, 2013 PART B [id number] [facility] BENITO CARSON PATIENT MEDICARE (WNR) MEDICARE (M) PART A Feb 10, 2013 PART A [id number] [phone] BENITO CARSON PATIENT MEDICARE (WNR) MEDICARE (M) PART B Feb 10, 2013 PART B [id number] BENITO CARSON PATIENT Selected Encounter This [...] heart disease without heart failure JEAN MARIE MICHELFIELD Plan of Treatment: Future Appointments (+ 6 [...] 02, 2023 11:00 AM AM[facility]UL[facility] NONE [facility] Dec 09, 2023 11:00 AM AMBULATORY - PSYCHIATRY [facility] Dec 21, 2023 10:00 AM AMBULATORY - MEDICINE [facility] (6[facility]) Dec 28, 2023 10:00 AM AMBULATORY - MEDICINE [facility] (6[facility]) Jan 04, 2024 10:00 AM [facility] Jan 06, 2024 11:00 AM AMBULATORY - PSYCHIATRY [facility] Jan 11, 2024 10:00 AM [facility]UL[facility]ORY - NONE [facility] Feb 10, 2024 11:00 AM AMBULATORY - PSYCHIATRY [facility] Mar 16, 2024 10:00 AM AMBULATORY PSYCHIATRY [facility] Mar 22, 2024 11:30 AM AMBULATORY - MEDICINE [facility] Apr 20, 2024 11:00 AM AMBULATORY PSYCHIATRY [facility] Active, Pending, and [...] of theEncounter. The data comes from all [place] treatment [facility]. Test Date/Time Test Type Test Details Facility Name Oct 21, 2023 12:00 AM Laboratory - Chemi stry Order CBC AND DIFF (AUTO) BLOOD (LAV-BLOOD) [facility] Lab Results: +/- 30 days of the encounter This section includes the Chemistry and Hematology Lab Results on record with PA for the patient. Radiology Reports and Pathology Reports are provided separately, in subsequent sections. Lab Results This section contains the Chemistry/Hematology Results that were resulted 30 days before or 30 daysafter the date of the Encounter. Date/Time Source Result Type Result - Unit Interpretation Reference Range Specimen Type Comment Nov 01, 2023 12:23 PM [facility] VITAMIN D 25-OH (Therapy monitor) SERUM Speci men Type: SERUM Comment: Vitamin D, 25-Hydroxy reports [...] ng/mL. For additional information, please refer to http://education. [employer]/faq/JQR142 (This link is being provided for informational/ educational purposes only.) This test was developed and its analytical performance characteristics have been determined by [facility] [place], [place]. It has not been cleared or approved by the U.S. Food and Drug Administration. This assay has been validated pursuant to the CLIA regulations and is used for clinical purposes. This test was developed and its analytical performance characteristics have been determined by [facility] [place] [place]. It has not been cleared or approved by the U.S. Food and Drug Administration. This assay has been validated pursuant to the CLIA regulations and is used for clinical purposes. Test Performed by [facility], [facility], [address] [place] [address] Mike Porter M.D., Ph.D., Director of Laboratories , CLIA [id number] TEST PERFORMED AT: , Ordering Provider: YELENA MICHEL IO Report Released Date/Time: Nov 01, 2023 11:43 AM Reporting Lab: [address] [address] Performing Lab: [facility] [address] [address] VITAMIN D, 25-OH, TOTAL 61 ng/mL 30-100 VITAMIN D, 25-OH, D3 61 ng/mL VITAMIN D, 25-OH, D2 <4 ng/mL Nov 01, 2023 12:23 PM [facility] MAGNESIUM SERUM Specimen Type: SERUM No comment entered. Ordering Provider: BALTA MICHEL Report Released Date/Time: Nov 01, 2023 11:43 AM Reporting Lab: [address] [address] Performing Lab: [address] [address] MAGNESIUM 2.1 mg/dL 1.6-2.6 Nov 01, 2023 12:23 PM [facility] [place] [facility] CALCIUM SERUM Specimen Type: SERUM No comment entered. Ordering Provider: BALTA MICHEL Report Released Date/Time: Nov 01, 2023 11:43 AM Reporting Lab: [facility] [place] [facility] [address] [facility] [address] Performing Lab: [facility] [place] [facility] [address] [facility] [address] CALCIUM 8.8 mg/dL 8.5-10.2 Oct 28, 2023 12:08 PM [facility] [place] [facility] FOLATE (WROX) SERUM Specimen Type: SERUM No comment entered. Ordering Provider: BALTA MICHEL Report Released Date/Time: Oct 21, 2023 02:23 PM Reporting Lab: [facility] [place] [facility] [address] [facility] [address] Performing Lab: [facility] [place] [facility] [address] [facility] [address] FOLATE (WROX) >20.00 ng/mL >5.2 Oct 28, 2023 12:08 PM [facility] FERRITIN SERUM Specimen Type: SERUM No comment entered. Ordering Provider: BALTA MICHEL Report Released Date/Time: Oct 21, 2023 02:23 PM Reporting Lab: [facility] [place] [facility] [address] [facility] [address] Performing Lab: [facility] [place] [facility] [address] [facility] [address] FERRITIN 84 ng/mL 20-300 Oct 28, 2023 12:08 PM [facility] [place] [facility] VITAMIN B12 SERUM Specimen Type: SERUM No comment entered. Ordering Provider: BALTA MICHEL Report Released Date/Time: Oct 21, 2023 02:23 PM Reporting Lab: [facility] [place] [facility] [address] [facility] [address] Performing Lab: [facility] [place] [address] [address] VITAMIN B12 571 pg/mL 200-900 Oct 28, 2023 12:08 PM [facility] IRON & TIBC PANEL SERUM Specimen Type: SERUM No comment entered. Ordering Provider: BALTA MICHEL Report Released Date/Time: Oct 21, 2023 02:23 PM Reporting Lab: [facility] [address] [facility] [address] Performing Lab: [facility] [address] [facility] [address] TIBC 347 ug/dL 204-475 IRON 101 ug/dL 40-160 Transferrin Saturation 29.1 20.0-50.0 Oct 28, 2023 12:06 PM [facility] LIPID PANEL FASTING SERUM Specimen Type: SERU M No comment entered. Ordering Provider: BALTA MICHEL Report Released Date/Time: May 03, 2023 09:13 AM Reporting Lab: [address] [address] Performing Lab: [facility] [address] [facility] [address] CHOLESTEROL 91 mg/dL TRIGLYCERIDE 84 mg/dL 0-150 LDL calculated 28 mg/dL 0-129 CHOL/HDL 2.0 HDL CHOLESTEROL 46 mg/dL 40-60 Oct 28, 2023 12:06 PM [facility] BASIC METABOLIC PANEL (fasting) SERUM Specime n Type: SERUM No comment entered. Ordering Provider: BALTA MICHEL Report Released Date/Time: May 03, 2023 09:13 AM Reporting Lab: [facility] [address] [facility] [address] Performing Lab: [address] [address] UREA NITROGEN 30 mg/dL H 7-25 GLUCOSE 100 mg/dL 65-100 SODIUM 137 mmol/L 135-145 POTASSIUM 4.1 mmol/L 3.5-5.0 CHLORIDE 103 mmol/L 100-110 CO2 24 meq/L 20-30 CREATININE, Serum 1.09 mg/dL 0.50-1.40 eGFR(CKD-EPI 2020) 70 mL/min >60 Oct 28, 2023 12:06 PM [facility] HEMOGLOBIN A1C PANEL BLOOD Specimen Type: BLO OD Comment: Values obtained from A1C measurements can vary. For atypical A1C assays, a reported value of 7.0 could actually be between 6.72 and 7.28 if measured by a reference method. A reported value of 9.0 could actually be between 8.73 and 9.27. Ref: http://www.ngsp.org/CAPdata.asp Ordering Provider: BALTA MICHEL Report Released Date/Time: May 03, 2023 09:13 AM Reporting Lab: [address] [address] Performing Lab: [address] [address] HEMOGLOBIN A1C 5.3 4.0-5.6 Oct 28, 2023 12:06 PM [facility] LIVER FUNCTION SERUM Specimen Type: SERUM No comment entered. Ordering Provider: BALTA MICHEL Report Released Date/Time: May 03, 2023 09:13 AM Reporting Lab: [address] [address] Performing Lab: [address] [address] PROTEIN,TOTAL 6.9 g/dL 6.0-8.3 ALBUMIN 4.0 g/dL 3.5-5.0 ALKALINE PHOSPHATASE 132 U/L 40-150 AST 32 U/L 5-34 ALT 35 U/L BILIRUBIN, TOTAL 1.0 mg/dL 0.2-1.2 Oct 28, 2023 12:06 PM [facility] TSH SERUM Specimen Type: SERUM No comment entered. Ordering Provider: BALTA MICHEL Report Released Date/Time: May 03, 2023 09:13 AM Reporting Lab: [address] [address] Performing Lab: [address] [address] TSH 1.59 u[IU]/mL 0.35-5.00 Oct 28, 2023 12:06 PM [facility] CBC AND DIFF (AUTO) BLOOD Specimen Type: BLOO D No comment entered. Ordering Provider: BALTA MICHEL Report Released Date/Time: May 03, 2023 09:13 AM Reporting Lab: [facility] [address] [facility] [address] Performing Lab: [facility] [address] [facility] [address] WBC 4.05 10*3/uL L 4.50-11.00 RBC 4.86 [...] 0.0 0.0-0.7 IMMATURE GRAN, ABS 0.00 10*3/uL 0.00-0.0 6 NRBC % 0.0 0.0-0.0 NRBC, ABS 0.00 10*3/uL 0.00-0.00 Social History: Smoking Status (Most current) and Tobacco Use (All prior to encounter date) This section includes the most current, and the historical, smoking and tobacco- related health factors from the [facility] where the Encounter took place. Current Smoking Status This section includes the most current smoking, or tobacco-related health factor, from the [facility] where the Encounter took place. Date/Time Current Smoking Status Comment Gonzalo lin Nov 01, 2023 11:00 AM VA-TOBACCO NEVER USED [facility] Tobacco Use History This section includes a history of the smoking, or tobacco-related health factors, that were collected on or before the date of the Encounter. The data comes from the [facility] where the Encounter took place. Date/Time Smoking Status/Tobacco Use Comment F acility Sep 29, 2022 10:30 AM VA-TOBACCO FORMER USER [facility] Sep 29, 2022 10:30 AM VA-TOBACCO QUIT 15 YRS OR MORE [facility] Jan 21, 2021 09:00 AM VA-TOBACCO NEVER USED [facility] Feb 14, 2020 01:00 PM VA-TOBACCO FORMER USER [facility] Feb 14, 2020 01:00 PM VA-TOBACCO QUIT 15 YRS OR MORE [facility] Jul 05, 2018 03:54 PM VA-TOBACCO FORMER USER [facility] Jul 05, 2018 03:54 PM VA-TOBACCO QUIT 15 YRS OR MORE [facility] May 19, 2017 01:01 PM QUIT TOBACCO USE > 7 YEARS AGO [facility] Apr 29, 2016 12:14 PM QUIT TOBACCO USE > 7 YEARS AGO Quit 20 years ago [facility] Mar 21, 2015 02:25 PM QUIT TOBACCO USE > 7 YEARS AGO [facility] May 03, 2012 12:04 PM QUIT TOBACCO USE > 7 YEARS AGO [facility] Encounter Notes: All associated encounter notes This section contains the clinical notes associated to the Encounter. Date/Time Encounter Note(s) Provider Source Nov 01, 2023 11:11 AM PREVENTIVE MEDICIN E NURSING NOTE: LOCAL TITLE: CLINICAL REMINDERS/NURSING STANDARD TITLE: PREVENTIVE MEDICINE NURSING NOTE DATE OF NOTE: NOV 01, 2023@11:11 ENTRY DATE: NOV 01, 2023@11:11:22 AUTHOR: MAYDA GALLEGOS EXP COSIGNER: URGENCY: STATUS: COMPLETED Advance Directive Screen MH AD: Patient does not have a completed advance directive on file at any facility, [place] or outside. S/he is not interested in [...] full rights to use it throughout the [place] system. PRIMARY SCREEN RESULT: The Primary Screen [...] 09/16/2022@11:00 I25.10 (ICD-10-CM) Atherosclerotic Heart Disease of [place] Coronary Artery without Angina Pectoris rank: PRIMARY Prov. Narr. - Atherosclerotic Heart Disease of [place] Coronary Artery without Angina Pectoris Action: Referral Ordered: Comprehensive Eye Exam Patient has an exclusion to Tele-Eye Screening. Schedule for a comprehensive eye exam ordered. Comment: PHONE NUMBER WAS GIVEN TO THE HE WILL CALL TO SCHEDULE EYE EXAM MED LIST GIVEN TO PROVIDER COMPLETED MED REC DURING THE VISIT. /lili/ MAYDA GALLEGOS LPN LPN Signed: 11/01/2023 11:13 MAYDA GALLEGOS Nov 01, 2023 08:13 AM PHYSICIAN NOTE: LOCAL TITLE: MD NOTE STANDARD TITLE: PHYSICIAN NOTE DATE OF NOTE: NOV 01, 2023@08:13 ENTRY DATE: NOV 01, 2023@08:13:30 AUTHOR: BALTA MICHEL EXP COSIGNER: URGENCY: STATUS: COMPLETED SUBJECT: semi-annual CC: 73 year old WHITE MALE 70%SC HPI: Discussed interruption of lipid medication Followed by mental health/social worker delinquency prevention Followed by [facility] for anemia Problem list and medications reviewed. Last Labs: October 2023 with baseline leukopenia Active problems - Computerized Problem List is the source for the followin. Normocytic anemia folllowed by [facility] hgb 11.9 (May 2022) 2. Osteoporosis DEXA June [address]-management Dr. León, [facility] (minor, [place] is primary) 4. Pain [...] mentioned in report 13. Hypothyroidism (SNOMED CT 37670617) levothyroxine 125mcg 14. Benign hypertension (SNOMED CT 07767726) on HCTZ / lisinopril 15. Hyperlipidemia (SNOMED CT 17712822) on high intensity atorvastatin / zetia 16. Tinnitus * 17. Osteoarthritis (SNOMED CT 646120577) PHYSICAL EXAMINATION/DIRECTED EXAM: BP:118/79 (11/01/2023 11:10) Resp:20 [...] MD PHYSICIAN Signed: 11/23/2023 08:12 BALTA MICHEL [facility]
--- OUTSIDE RECORDS SUMMARY | 2024-08-22 11:14 | XMS_ITS | Encounter Summary ---
Author Name [facility] [place] [facility] [place] Address [address] [place] [address] Care Team Providers Care Ent Consultant Name Role Phone ARNOLDO PERSAUD Primary Care Provider Unavail le Insurance Providers: All historical and current [...] O MEDEX BRONZ E Apr 12, 2014 [id number] WILUSZ,TH OMAS PATIENT [place] MEDICARE SUPPLEMEN KATHRYN MEDEX BRONZ E Mar 12, 2013 [id number] WILUSZ,TH [place] PATIENT [place] MED[place] SUPPLEMEN KATHRYN MEDEX BRONZ E Mar 12, 2013 [id number] WILZ,TH OMAS PATIENT MEDICARE (WNR) MEDICARE (M) PART A Feb 10, 2013 PART A [id number] TX12 BENITO CARSON PATIENT MEDICARE (WNR) MEDICARE (M) PART B Feb 10, 2013 PART B [id number] TX12 BENITO CARSON PATIENT MEDICARE (WNR) MEDICARE (M) PART A Feb 10, 2013 PART A [id number] TX12 [phone] BENITO CARSON PATIENT MEDICARE (WNR) MEDICARE (M) PART B Feb 10, 2013 PART B [id number] TX12 BENITO CARSON PATIENT Selected Encounter This section includes the information on [place] at [place] for the Encounter. Date/Time Encounter Type Encounter Description Reason Provider Source Jan 11, 2024 10:00 AM HYPNOTHERAPY [facility] T[facility]AT[facility] ICD-10-CM E66.3 Overweight TEJMARGARET MCCONNELL Encounter Template Text not used by [place] Assessments - Encounter Diagnoses This section includes the primary and secondary diagnoses documented for the Encounter. Date/Time Primary/Secondary Diagnosis Diagnosis Name Provider Source Jan 26, 2024 01:04 PM PRIMARY Overweight PASCUAL PRESTON [facility] (6[facility]) Plan of Treatment: Future Appointments [...] 10, 2024 11:00 AM AMBULATORY - PSYCHIATRY [facility] Mar 16, 2024 10:00 AM AMBULATORY - PSYCHIATRY [facility] Mar 22, 2024 11:30 AM AMBULATORY - [place]ICINE [place] C PATRICIAL NELLIE DELONG [facility] Apr 20, 2024 11:00 AM AMBULATORY - PSYCHIATRY [facility] May 19, 2024 11:00 AM AMBULATORY - PSYCHIATRY [facility] Jun 16, 2024 11:00 AM AMBULATORY - PSYCHIATRY [facility] Encounter Notes: All associated encounter [...] [60-minute, or more] individual supervision meeting. The Stringer was provided with information on VVC and has given verbal consent to use group VVC services for their healthcare. The copy of the Group Telehealth Agreement has been mailed to the Stringer. The Telehealth Agreement was also reviewed in full at the start of this session. The 's location/emergency contact number were confirmed. The Emergency Call Relay Center (E911) was available. The visit was locked for security and privacy. Stringer identified with 2 identifiers: [x] Full Name [x] Address [facility] Facilitators: Margaret Velasco, PhD; Pascual Preston M.Ed, [facility] Date: 01/11/24 Diagnosis: Overweight CPT: 41551 and 18389, 11990 Time: 60 min REASON FOR ENCOUNTER: attended session 4 of 4 of the [facility] Hyp[facility] Weight Management [facility]. SUMMARY OF SESSION: Group rules and VVC etiquette were discussed. Stringer orally consented to the VVC telehealth agreement. Group purpose was discussed, including a pre-induction talk: Policy Change Clerks Supervisor provided psychoeducation about what clinical hypnosis is, the focused state of concentration, self-hypnosis, personalized suggestions, structure of session, possible side effects, clinical hypnosis as a tool, myths about hypnosis, and re-alerting. Discussed Veterans' weight management goals, and any progress or barriers to those goals. Reviewed practice of self-hypnosis using the YouTube channel, Stuff That Helps. Discussed home practice [...] thought concerns reported or observed. IMPRESSIONS: The Stringer was engaged and expressed how much he enjoyed this group and how he would continue with self-hypnosis. PLAN: There is no further f/u planned at this time. /llii/ PASCUAL PRESTON [employer] Social Worker Signed: 01/11/2024 16:19 /lili/ Margaret Velasco, PhD Clinical Psychologist Cosigned: 01/11/2024 16:26 01/11/2024 ADDENDUM STATUS: COMPLETED I have reviewed this case and concur with the clinical impressions and recommendations made by this trainee who is under my clinical supervision. /lili/ Margaret Velasco, PhD Clinical Psychologist Signed: 01/11/2024 16:26 PASCUAL PRESTON [facility] (741GE)
--- OUTSIDE RECORDS SUMMARY | 2024-08-22 11:14 | XMS_ITS | Encounter Summary ---
Author Name [facility] [place] [facility] [place] Address [address] [place] [address] Care Team Providers Care Electric Organ Assembler Name Role Phone ARNOLDO PERSAUD Primary Care [...] O MEDEX BRONZ E Apr 12, 2014 [id number] WILLOREN, OMAS PATIENT [place]BS [place] MEDICARE SUPPLEMEN KATHRYN MEDEX BRONZ E Mar 12, 2013 [id number] [phone] WILZ,TH OM[place] PATIENT [place] MEDICARE SUPPLEMEN KATHRYN MEDEX BRONZ E Mar 12, 2013 [id number] [phone] ALLI,TH OMAS PATIENT MEDICARE (WNR) MEDICARE (M) PART A Feb 10, 2013 PART A [id number] [place] BENITO CARSON PATIENT MEDICARE (WNR) MEDICARE (M) PART B Feb 10, 2013 PART B [id number] TX12 BENITO CARSON PATIENT MEDICARE (WNR) MEDICARE (M) PART A Feb 10, 2013 PART A [id number] TX12 BENITO CARSON PATIENT MEDICARE (WNR) MEDICARE (M) PART B Feb 10, 2013 PART B [id number] TX12 BENITO CARSON PATIENT Selected Encounter This section includes the information on record at [place] for the Encounter. Date/Time Encounter Type Encounter Description Reason Provider Source Sep 16, 2023 11:00 AM PSYTX W PT 60 [facility]UTES [facility] - IND ICD-10-CM F43.12 Post-traumatic stress disorder, chronic SHANELL SMITH Mike Encounter Template Text not used by [place] Assessments - Encounter Diagnoses This section includes [...] 22, 2023 12:00 PM AMBULATORY - MEDICINE [place] [facility] Oct 28, 2023 11:00 AM AMBULATORY - PSYCHIATRY [facility] Nov 01, 2023 11:00 AM AMBULATORY - MEDICINE [place] [facility] Dec 02, 2023 11:00 AM AMBULATORY - NONE [place]TR [place] [facility] Dec 09, 2023 11:00 AM AMBULATORY - PSYCHIATRY [facility] Dec 21, 2023 10:00 AM AMBULATORY - MEDICINE [facility] (631GE) Dec 28, 2023 10:00 AM AMBULATORY - MEDICINE [facility] (631[facility]) Jan 04, 2024 10:00 AM [facility] Jan 06, 2024 11:00 AM AMBULATORY - PSYCHIATRY [facility] Jan 11, 2024 10:00 AM [facility] Feb 10, 2024 11:00 AM AMBULATORY - PSYCHIATRY [facility] Mar 16, 2024 10:00 AM AMBULATORY - PSYCHIATRY [facility] [...] of theEncounter. The data comes from all [place] treatment facilities. Test Date/Time Test Type Test Details Facility Name Aug 02, 2023 12:00 AM Laboratory - Chemi stry Order CBC AND DIFF (AUTO) BLOOD (LAV-BLOOD) [facility] Aug 02, 2023 12:00 AM Laboratory - Chemi stry Order FERRITIN BLOOD (SST-SERUM) [facility] WSN [facility] Aug 02, 2023 12:00 AM Laboratory - Chemi stry Order VITAMIN B12 BLOOD (SST[facility]SERUM) [facility] Aug 02, 2023 12:00 AM Laboratory - Chemi stry Order IRON & TIBC PANEL BLOOD (SST-SERUM) [facility] Aug 02, 2023 12:00 AM Laboratory - Chemi stry Order FOLATE BLOOD (SST-SERUM) [facility] Oct 21, 2023 12:00 AM Laboratory - Chemi stry Order CBC AND DIFF (AUTO) BLOOD (LAV-BLOOD) [facility] Social History: Smoking Status (Most current) and Tobacco Use (All prior to encounter date) This section includes the most current, and the historical, smoking and tobacco- related health factors from the [place] facility where the Encounter took place. Current Smoking Status This section includes the most current smoking, or tobacco-related health factor, from the [place] facility where the Encounter took place. Date/Time Current Smoking Status Comment Gonzalo ity Sep 29, 2022 10:30 AM VA-TOBACCO FORMER USER [facility] Tobacco Use History This section includes a history of the smoking, or tobacco-related health factors, that were collected on or before the date of the Encounter. The data comes from the [place] facility where the Encounter took place. Date/Time Smoking Status/Tobacco Use Comment F acility Sep 29, 2022 10:30 AM VA-TOBACCO QUIT 15 YRS OR MORE [facility] Jan 21, 2021 09:00 AM VA-TOBACCO NEVER USED [facility] Feb 14, 2020 01:00 PM VA-TOBACCO FORMER USER [facility] Feb 14, 2020 01:00 PM VA-TOBACCO QUIT 15 YRS OR MORE [facility] Jul 05, 2018 03:54 PM VA-TOBACCO FORMER USER [facility] Jul 05, 2018 03:54 PM VA-TOBACCO QUIT 15 YRS OR MORE [facility] May 19, 2017 01:01 PM QUIT TOBACCO USE > 7 YEARS AGO [facility] Apr 29, 2016 12:14 PM QUIT TOBACCO USE > 7 YEARS AGO Quit 20 years ago [facility] Mar 21, 2015 02:25 PM QUIT TOBACCO USE > 7 YEARS AGO [facility] May 03, 2012 12:04 PM QUIT TOBACCO USE > 7 YEARS AGO [facility] Radiology Reports: +/- 30 days of the [...] the Encounter. The data comes from all [place] treatment facilities. 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 (Req'g Loc Img Loc: [facility]/BUILDING 1 Service: Unknown [facility] , (Case [id number] COMPLETE) HAND3 OR MORE VIEWS(RIGHT) (RAD Detailed) CPT:05170 Reason for Study: pain and swelling right hand along thumb Clinical History: Covering resident, fellow, 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 or attending: Yaneth majano NP [place] Pager: [phone] Backup pager: History: no injury or trauma Report Status: Verified Date Reported: AUGUST 18, 2023 Date Verified: AUGUST 18, 2023 Power Manager E-Sig:/ES/MOLLY LOCKWOOD JR Report: Study: AP, lateral, [...] Primary Interpreting Staff: MOLLY LOCKWOOD JR, Radiologist (Power Manager) /EAD MOLLY LOCKWOOD JR [facility] August 18, 2023 02:36 PM FOOT 3 OR MORE VIEWS (RIGHT): SOFILORENPETTY ALLEN [id number] -[id number] M Ex Date: AUGUST 18, 2023@14:36 Req Phys: YANETH MAJANO Pat Loc: CWM/SO/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 CALL 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 (Req'g Loc Img Loc: [facility]/BUILDING 1 Service: Unknown [facility] , (Case [id number] COMPLETE) FOOT 3 OR MORE VIEWS (RIGHT) (RAD Detailed) CPT:11309 CPT Modifiers : RT RIGHT SIDE Reason for Study: pain and swelling right foot along great toe Clinical History: Covering resident, fellow, 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 or attending: Yaneth Majano NP [place] Pager: [phone] Backup pager: History: no injury or trauma Report Status: Verified Date Reported: AUGUST 18, 2023 Date Verified: AUGUST 18, 2023 Power Manager E-Sig:/ES/OMLLY LOCKWOOD JR Report: Study: Weight-bearing AP, lateral, [...] Primary Interpreting Staff: MOLLY LOCKWOOD JR, Radiologist (Power Manager) /MOLLY BLAS JR [place] CNTRL TRN [facility] Encounter Notes: All associated encounter [...] court of law and presented to a interior assemblies installer), and 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 Bethune stated he did get two kittens before his dog declined so he is entertained by them. 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 Bethune stated when he is busy he forgets. Encouraged him to allow his feelings to arise when they do and not to supress. He agreed. He has friends and family that are supportive. INTERVENTIONS: Psychotherapeutic Interventions: [place]; Reflective listening and support ASSESSMENT: BRIEF ASSESSMENT [...] for: 10/28/23 at 11am /lili/ LUCY FORREST Can Doffer Mental Health Signed: 09/16/2023 12:28 SHANELL SMITH
--- OUTSIDE RECORDS SUMMARY | 2024-08-22 11:15 | XMS_ITS | Encounter Summary ---
Author Name [facility] [place] [facility] [place] Address [address] [place] [address] Care Team Providers Care Sales Support Advisor Name Role Phone ARNOLDO PERSAUD Primary Care [...] O MEDEX BRONZ E Apr 12, 2014 [id number] WILLOREN, OM[place] PATIENT [place]BS [place] MEDICARE SUPPLEMEN KATHRYN MEDEX BRONZ E Mar 12, 2013 [id number] WILZ,TH OM[place] PATIENT [place] MED[place] SUPPLEMEN KATHRYN MEDEX BRONZ E Mar 12, 2013 [id number] ALLI,TH OMAS PATIENT MEDICARE (WNR) MEDICARE (M) PART A Feb 10, 2013 PART A [id number] [place] BENITO CARSON PATIENT MEDICARE (WNR) MEDICARE (M) PART B Feb 10, 2013 PART B [id number] TX12 BENITO CARSON PATIENT MEDICARE (WNR) MEDICARE (M) PART A Feb 10, 2013 PART A [id number] TX12 BENITO CARSON PATIENT MEDICARE (WNR) MEDICARE (M) PART B Feb 10, 2013 PART B [id number] TX12 BENITO CARSON PATIENT Selected Encounter This section includes the information on record at [place] for the Encounter. Date/Time Encounter Type Encounter Description Reason Provider Source Mar 16, 2024 10:00 AM PSYTX W PT 60 MINUTES [facility] - IND ICD-10-CM F43.12 Post-traumatic stress disorder, chronic SHANELL SMITH Mike Encounter Template Text not used by [place] Assessments - Encounter Diagnoses This section includes [...] activities for the patient from all [place] treatmentfacilities. This section includes future appointments and future orders which are active, pending or scheduled. Future Appointments This section includes appointments that were scheduled to occur 6 months from the date of the Encounter, up to a maximum of 20 appointments. The data comes from all [place] treatment facilities. Appointment Date/Time Appointment Type Appointme nt Facility Name Mar 22, 2024 11:30 AM AMBULATORY - MEDICINE [place] C PATRICIAL WSTRChristiano DELONG [facility] Apr 20, 2024 11:00 AM AMBULATORY - PSYCHIATRY [facility] May 19, 2024 11:00 AM AMBULATORY - PSYCHIATRY [facility] Jun 16, 2024 11:00 AM AMBULATORY - PSYCHIATRY [facility] Jul 20, 2024 11:00 AM AMBULATORY - PSYCHIATRY [facility] August 17, 2024 11:00 AM AMBULATORY - PSYCHIATRY [facility] August 22, 2024 10:30 AM AM[place]ORY [place] [facility] [place] [facility] Social History: Smoking Status (Most current) and Tobacco Use (All prior to encounter date) This section includes the most current, and the historical, smoking and tobacco- related health factors from the [facility] where the Encounter took place. Current Smoking Status This section includes the most current smoking, or tobacco-related health factor, from the [place] facility where the Encounter took place. Date/Time Current Smoking Status Comment Gonzalo [facility] Nov 01, 2023 11:00 AM VA-TOBACCO NEVER USED [place] Tobacco Use History This section includes a history of the smoking, or tobacco-related health factors, that were collected on or before the date of the Encounter. The data comes from the [facility] where the Encounter took place. Date/Time Smoking Status/Tobacco Use Comment F acility Sep 29, 2022 10:30 AM VA-TOBACCO FORMER USER [place] Sep 29, 2022 10:30 AM VA-TOBACCO QUIT 15 YRS OR MORE [facility] Jan 21, 2021 09:00 AM VA-TOBACCO NEVER USED [place] Feb 14, 2020 01:00 PM VA-TOBACCO FORMER USER [place] Feb 14, 2020 01:00 PM VA-TOBACCO QUIT 15 YRS OR MORE [facility] Jul 05, 2018 03:54 PM VA-TOBACCO FORMER USER [place] Jul 05, 2018 03:54 PM VA-TOBACCO QUIT 15 YRS OR MORE [facility] May 19, 2017 01:01 PM QUIT TOBACCO USE > 7 YEARS AGO [facility] Apr 29, 2016 12:14 PM QUIT TOBACCO USE > 7 YEARS AGO Quit 20 years ago [facility] Mar 21, 2015 02:25 PM QUIT TOBACCO USE > 7 YEARS AGO [facility] May 03, 2012 12:04 PM QUIT TOBACCO USE > 7 YEARS AGO [facility] Encounter Notes: All associated encounter notes This [...] court of law and presented to a vice president of sales), and DOD access for active duty service members. Provided Suicide Prevention Hotline number, and other contact numbers as necessary. 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 SESSION FOCUS: Met with face to face for individual counseling. stated he continues to look for his [...] administration. He is planning a trip to [place] with his daughter in early spring. He is grateful he can still travel and there is less stress now that he doesn't have a dog. He spoke about meditation and his alternative ways for self care. Overall he is feeling stable and has the support of some family and friends. 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
--- OUTSIDE RECORDS SUMMARY | 2024-08-22 11:15 | XMS_ITS ---
Author Name [facility] [place] Address [address] [place] [address] Care Team Providers Care Water Pump Assembler Name Role Phone ARNOLDO PERSAUD Primary [...] O MEDEX BRONZ E Apr 12, 2014 [id number] WILLOREN,TH OMAS PATIENT BCBS [place] MEDICARE SUPPLEMEN KATHRYN MEDEX BRONZ E Mar 12, 2013 [id number] [phone] WILLOREN,TH OMAS PATIENT [place] MEDICARE SUPPLEMEN KATHRYN MEDEX BRONZ E Mar 12, 2013 [id number] ALLI,TH OMAS PATIENT MEDICARE (WNR) MEDICARE (M) PART A Feb 10, 2013 PART A [id number] [id number] BENITO CARSON PATIENT MEDICARE (WNR) MEDICARE (M) PART B Feb 10, 2013 PART B [id number] TX12 BENITO CARSON PATIENT MEDICARE (WNR) MEDICARE (M) PART A Feb 10, 2013 PART A [id number] TX12 [phone] BENITO CARSON PATIENT MEDICARE (WNR) MEDICARE (M) PART B Feb 10, 2013 PART B [id number] TX12 [phone] BENITO CARSON PATIENT Selected Encounter This section includes the information on record at [place] for the Encounter. Date/Time Encounter Type Encounter Description Reason Pro vider Source Jan 04, 2024 10:00 AM Outpatient Encounter [facility] TREATMENT IHE Encounter Template Text not used by [place] Plan of Treatment: Future Appointments (+ 6 months) and Future Tests (+/- 45 days) The Plan of Treatment section includes future care activities for the patient from all [place] treatmentfacilities. This section includes future appointments and future orders which are active, pending or scheduled. Future Appointments This section includes appointments that were scheduled to occur 6 months from the date of the Encounter, up to a maximum of 20 appointments. The data comes from all [place] treatment facilities. Appointment Date/Time Appointment Type Appointme nt Facility Name Jan 06, 2024 11:00 AM AMBULATORY - PSYCHIATRY [facility] Jan 11, 2024 10:00 AM [facility] Feb 10, 2024 11:00 AM AMBULATORY - PSYCHIATRY [facility] Mar 16, 2024 10:00 AM AMBULATORY - PSYCHIATRY [facility] Mar 22, 2024 11:30 AM AMBULATORY - MEDICINE [facility] Apr 20, 2024 11:00 AM AMBULATORY - PSYCHIATRY [facility] May 19, 2024 11:00 AM AMBULATORY - PSYCHIATRY [facility] Jun 16, 2024 11:00 AM AMBULATORY - PSYCHIATRY [facility] Encounter Notes: All associated encounter notes This section contains the clinical notes associated to the Encounter. Date/Time Encounter Note(s) Provider Source Jan 04, 2024 01:09 PM CLERICAL NOTE: LOCAL TITLE: APPOINTMENT NO SHOW STANDARD TITLE: CLERICAL NOTE DATE OF NOTE: JAN 04, 2024@13:09 ENTRY DATE: JAN 04, 2024@13:09:15 AUTHOR: YONY JORDAN EXP COSIGNER: URGENCY: STATUS: COMPLETED Patient Name: PETTY CARSON Patient SSN: [id number] Date and time of Appointment No show [...] Visits 01/06/2024 11:00 CWM/SO/MHC/LUIS /es/ YONY JORDAN SECURITY CONTROL ASSESSOR Signed: 01/04/2024 13:09 YONY JORDAN [facility] ([id number]) Jan 04, 2024 01:09 PM LETTERS: LOCAL TITLE: PATIENT LETTER (B) STANDARD TITLE: LETTERS DATE OF NOTE: JAN 04, 2024@13:09 ENTRY DATE: JAN 04, 2024@13:10 AUTHOR: YONY JORDAN EXP COSIGNER: URGENCY: STATUS: COMPLETED [facility] Toll Free Number [facility] scheduling can be reached at ext. [phone] [facility]- ext. [phone] [employer]- ext. [phone] [facility]- ext. [phone] JAN 04, 2024 PETTY CARSON [address], [place] [address] Dear PETTY CARSON We are sorry that you were unable to keep the following appointment at the [facility] on: Date/Time: Jan 04, 2024@10:00 [facility]: CWM/WO/VVC/HYPNOSIS GRP Location: [address] [place] [address] Telephone Ext.: [phone] Your healthcare needs are important to us. You may reach us at the phone number listed above to reschedule. We look forward to hearing from you and we thank you for your service. Respectfully, Primary Care Services [facility] YONY JORDAN [facility] ([id number])
--- OUTSIDE RECORDS SUMMARY | 2024-08-22 11:15 | XMS_ITS | Encounter Summary ---
Author Name [facility] [place] [facility] [place] Address [address] [place] [address] Care Team Providers Care Optical Scientist Name Role Phone ARNOLDO PERSAUD Primary Care [...] O MEDEX BRONZ E Apr 12, 2014 [id number] WILLOREN, OMAS PATIENT [place] MED[place] SUPPLEMEN KATHRYN MEDEX BRONZ E Mar 12, 2013 [id number] WILZ,TH [place] PAT[place] KATHRYN MEDEX BRONZ E Mar 12, 2013 [id number] [phone] WILLOREN,TH OMAS PATIENT MEDICARE (WNR) MEDICARE (M) PART B Feb 10, 2013 PART B [id number] [phone] BENITO CARSON PATIENT MEDICARE (WNR) MEDICARE (M) PART A Feb 10, 2013 PART A [id number] BENITO CARSON PATIENT MEDICARE (WNR) MEDICARE (M) PART A Feb 10, 2013 PART A [id number] [id number] [phone] BENITO CARSON PATIENT MEDICARE (WNR) MEDICARE (M) PART B Feb 10, 2013 PART B [id number] [id number] [phone] BENITO CARSON PATIENT Selected Encounter This section includes the information on record at [place] for the Encounter. Date/Time Encounter Type Encounter Description Reason Provider Source Oct 28, 2023 11:00 AM PSYTX W PT 60 [facility]UTES [facility] - IND ICD-10-CM F43.12 Post-traumatic stress disorder, chronic SHANELL SMITH Mike Encounter Template Text not used by [place] Assessments - Encounter Diagnoses This section includes [...] care activities for the patient from all [place] treatmentfacilities. This section includes future appointments and future orders which are active, pending or scheduled. Future Appointments This section includes appointments that were scheduled to occur 6 months from the date of the Encounter, up to a maximum of 20 appointments. The data comes from all [place] treatment facilities. Appointment Date/Time Appointment Type Appointme nt Facility Name Nov 01, 2023 11:00 AM AM[place]ULATORY [place]ICINE [place] [facility] Dec 02, 2023 11:00 AM AMBULATORY - NONE [place] [facility] [place] [facility] Dec 09, 2023 11:00 AM AMBULATORY - PSYCHIATRY [facility] Dec 21, 2023 10:00 AM AMBULATORY - MEDICINE [facility] ([id number] Dec 28, 2023 10:00 AM AMBULATORY - MEDICINE [facility] ([id number] Jan 04, 2024 10:00 AM AMBULATORY - NONE [facility] Jan 06, 2024 11:00 AM AMBULATORY - PSYCHIATRY [facility] Jan 11, 2024 10:00 AM [facility] Feb 10, 2024 11:00 AM AMBULATORY - PSYCHIATRY [facility] Mar 16, 2024 10:00 AM AMBULATORY - PSYCHIATRY [facility] Mar 22, 2024 11:30 AM AMBULATORY - MEDICINE [facility] Apr 20, 2024 11:00 AM [facility] [...] of theEncounter. The data comes from all [place] treatment facilities. Test Date/Time Test Type Test Details Facility Name Oct 21, 2023 12:00 AM Laboratory - Chemi stry Order CBC AND DIFF (AUTO) BLOOD (LAV-BLOOD) [facility] Lab Results: +/- 30 days of the encounter This section includes the Chemistry and Hematology Lab Results on record with [place] for the patient. Radiology Reports and Pathology Reports are provided separately, in subsequent sections. Lab Results This section contains the Chemistry/Hematology Results that were resulted 30 days before or 30 daysafter the date of the Encounter. Date/Time Source Result Type Result - Unit Interpretation Reference Range Specimen Type Comment Nov 01, 2023 12:23 PM [facility] VITAMIN D 25-OH (Therapy monitor) SERUM [...] For additional information, please refer to http://[email or web address] [email or web address] (This link is being provided for informational/ educational purposes only.) This test was developed and its analytical performance characteristics have been determined by [employer] [place], [place]. It has not been cleared or approved by the U.S. Food and Drug Administration. This assay has been validated pursuant to the CLIA regulations and is used for clinical purposes. This test was developed and its analytical performance characteristics have been determined by [employer] [place], [place]. It has not been cleared or approved by the U.S. Food and Drug Administration. This assay has been validated pursuant to the CLIA regulations and is used for clinical purposes. Test Performed by [facility], [employer] [facility], [address] [place] [address] Mike Porter M.D., Ph.D., Director of Laboratories , CLIA [id number] TEST PERFORMED AT: , Ordering Provider: YELENA MICHEL IO Report Released Date/Time: Nov 01, 2023 11:43 AM Reporting Lab: [address] [address] Performing Lab: [place] [id number] [address] VITAMIN D, 25-OH, TOTAL 61 ng/mL 30-100 VITAMIN D, 25-OH, D3 61 ng/mL VITAMIN D, 25-OH, D2 <4 ng/mL Nov 01, 2023 12:23 PM [facility] MAGNESIUM SERUM Specimen Type: SERUM No comment entered. Ordering Provider: BALTA MICHEL Report Released Date/Time: Nov 01, 2023 11:43 AM Reporting Lab: [address] [address] Performing Lab: [address] [address] MAGNESIUM 2.1 mg/dL 1.6-2.6 Nov 01, 2023 12:23 PM [facility] CALCIUM SERUM Specimen Type: SERUM No comment entered. Ordering Provider: BALTA MICHEL Report Released Date/Time: Nov 01, 2023 11:43 AM Reporting Lab: [facility] [address] [facility] [address] Performing Lab: [facility] [address] [facility] [address] CALCIUM 8.8 mg/dL 8.5-10.2 Oct 28, 2023 12:08 PM [facility] FOLATE (WROX) SERUM Specimen Type: SERUM No comment entered. Ordering Provider: BALTA MICHEL Report Released Date/Time: Oct 21, 2023 02:23 PM Reporting Lab: [facility] [address] [facility] [address] Performing Lab: [facility] [address] [facility] [address] FOLATE (WROX) >20.00 ng/mL >5.2 Oct 28, 2023 12:08 PM [facility] FERRITIN SERUM Specimen Type: SERUM No comment entered. Ordering Provider: BALTA MICHEL Report Released Date/Time: Oct 21, 2023 02:23 PM Reporting Lab: [facility] [address] [facility] [address] Performing Lab: [facility] [address] [facility] [address] FERRITIN 84 ng/mL 20-300 Oct 28, 2023 12:08 PM [facility] IRON & TIBC PANEL SERUM Specimen Type: SERUM No comment entered. Ordering Provider: BALTA MICHEL Report Released Date/Time: Oct 21, 2023 02:23 PM Reporting Lab: [facility] [address] [facility] [address] Performing Lab: [facility] [address] [facility] [address] TIBC 347 ug/dL 204-475 IRON 101 ug/dL 40-160 Transferrin Saturation 29.1 20.0-50.0 Oct 28, 2023 12:08 PM [facility] VITAMIN B12 SERUM Specimen Type: SERUM No comment entered. Ordering Provider: BALTA MICHEL Report Released Date/Time: Oct 21, 2023 02:23 PM Reporting Lab: [facility] [address] [facility] [address] Performing Lab: [address] [address] VITAMIN B12 571 pg/mL 200-900 Oct 28, 2023 12:06 PM [facility] LIPID PANEL FASTING SERUM Specimen Type: SERU M No comment entered. Ordering Provider: BALTA MICHEL Report Released Date/Time: May 03, 2023 09:13 AM Reporting Lab: [facility] [address] [facility] [address] Performing Lab: [address] [address] CHOLESTEROL 91 mg/dL TRIGLYCERIDE 84 mg/dL 0-150 LDL calculated 28 mg/dL 0-129 CHOL/HDL 2.0 HDL CHOLESTEROL 46 mg/dL 40-60 Oct 28, 2023 12:06 PM [facility] LIVER FUNCTION SERUM Specimen Type: SERUM No comment entered. Ordering Provider: BALTA MICHEL Report Released Date/Time: May 03, 2023 09:13 AM Reporting Lab: [address] [address] Performing Lab: [address] [address] PROTEIN,TOTAL 6.9 g/dL 6.0-8.3 ALBUMIN 4.0 g/dL 3.5-5.0 ALKALINE PHOSPHATASE 132 U/L 40-150 AST 32 U/L 5-34 ALT 35 U/L BILIRUBIN, TOTAL 1.0 mg/dL 0.2-1.2 Oct 28, 2023 12:06 PM [facility] BASIC METABOLIC PANEL (fasting) SERUM Specime n Type: SERUM No comment entered. Ordering Provider: BALTA MICHEL Report Released Date/Time: May 03, 2023 09:13 AM Reporting Lab: [facility] [address] [facility] [address] Performing Lab: [facility] [address] [facility] [address] UREA NITROGEN 30 mg/dL H 7-25 GLUCOSE 100 mg/dL 65-100 SODIUM 137 mmol/L 135-145 POTASSIUM 4.1 mmol/L 3.5-5.0 CHLORIDE 103 mmol/L 100-110 CO2 24 meq/L 20-30 CREATININE, Serum 1.09 mg/dL 0.50-1.40 eGFR(CKD-EPI 2020) 70 mL/min >60 Oct 28, 2023 12:06 PM [facility] HEMOGLOBIN A1C PANEL BLOOD Specimen Type: [...] May 03, 2023 09:13 AM Reporting Lab: [facility] [address] [facility] [address] Performing Lab: [address] [address] HEMOGLOBIN A1C 5.3 4.0-5.6 Oct 28, 2023 12:06 PM [facility] TSH SERUM Specimen Type: SERUM No comment entered. Ordering Provider: BALTA MICHEL Report Released Date/Time: May 03, 2023 09:13 AM Reporting Lab: [facility] [address] [facility] [address] Performing Lab: [address] [address] TSH 1.59 u[IU]/mL 0.35-5.00 Oct 28, 2023 12:06 PM [facility] CBC AND DIFF (AUTO) BLOOD Specimen Type: BLOO D No comment entered. Ordering Provider: BALTA MICHEL Report Released Date/Time: May 03, 2023 09:13 AM Reporting Lab: [facility] [address] [facility] [address] Performing Lab: [facility] [address] [facility] [address] WBC 4.05 10*3/uL L 4.50-11.00 RBC 4.86 [...] and tobacco- related health factors from the [place] facility where the Encounter took place. Current Smoking Status This section includes the most current smoking, or tobacco-related health factor, from the [place] facility where the Encounter took place. Date/Time Current Smoking Status Comment Gonzalo lin Sep 29, 2022 10:30 AM VA-TOBACCO FORMER USER [place] Tobacco Use History This section includes a history of the smoking, or tobacco-related health factors, that were collected on or before the date of the Encounter. The data comes from the [facility] where the Encounter took place. Date/Time Smoking Status/Tobacco Use Comment F acjaida Sep 29, 2022 10:30 AM VA-TOBACCO QUIT 15 YRS OR MORE [place] Jan 21, 2021 09:00 AM VA-TOBACCO NEVER USED [place] Feb 14, 2020 01:00 PM VA-TOBACCO FORMER USER [place] Feb 14, 2020 01:00 PM VA-TOBACCO QUIT 15 YRS OR MORE [place] Jul 05, 2018 03:54 PM VA-TOBACCO FORMER USER [place] Jul 05, 2018 03:54 PM VA-TOBACCO QUIT 15 YRS OR MORE [place] May 19, 2017 01:01 PM QUIT TOBACCO USE > 7 YEARS AGO [place] Apr 29, 2016 12:14 PM QUIT TOBACCO USE > 7 YEARS AGO Quit 20 years ago [place] Mar 21, 2015 02:25 PM QUIT TOBACCO USE > 7 YEARS AGO [place] May 03, 2012 12:04 PM QUIT TOBACCO USE > 7 YEARS AGO [place] Encounter Notes: All associated encounter notes This section contains the clinical notes associated to the Encounter. Date/Time Encounter Note(s) Provider Source Oct 28, 2023 11:00 AM SOCIAL WORK NOTE: LOCAL TITLE: SOCIAL WORK NOTE STANDARD TITLE: SOCIAL WORK NOTE DATE OF NOTE: OCT 28, 2023@11:00 ENTRY DATE: OCT 28, 2023@12:39:36 AUTHOR: SHANELL SMITHIGNER: URGENCY: STATUS: COMPLETED INFORMED CONSENT REVIEWED: At beginning of session reviewed rights and limits of confidentiality, mandatory reporting situations, duty to warn and protect, Jesus Warning, (if treatment team finds patient to be an acute danger to himself or others, that this information could be relayed to a court of law and presented to a telephone lineman), and DOD access for active duty service members. Provided Suicide Prevention Hotline number, and other contact numbers as necessary. 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 SESSION FOCUS: Met with face to face for individual counseling. [place] entered this office and began to cry. 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 Victor M was blown away . He believes the person was working on his 12 steps. [place] stated he will be going to visit his daughter at the end of December. He knows he will relax while there. 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
--- OUTSIDE RECORDS SUMMARY | 2024-08-22 11:15 | XMS_ITS | Encounter Summary ---
Author Name [facility] [place] Organization [facility] [place] Address [address] [place] [address] Care Team Providers Care Strike Planning Applications Name Role Phone ARNOLDO PERSAUD Primary Care [...] O MEDEX BRONZ E Apr 12, 2014 [phone] WILLOREN, OMAS PATIENT BCBS [place] MEDICARE SUPPLEMEN KATHRYN MEDEX BRONZ E Mar 12, 2013 [id number] [phone] WILZ,TH OMAS PATIENT BCBS OR MEDICARE SUPPLEMEN KATHRYN MEDEX BRONZ E Mar 12, 2013 [id number] ALLI,TH OMAS PATIENT MEDICARE (WNR) MEDICARE (M) PART A Feb 10, 2013 PART A [id number] [phone] BENITO CARSON PATIENT MEDICARE (WNR) MEDICARE (M) PART B Feb 10, 2013 PART B [id number] [id number] [phone] BENITO CARSON PATIENT MEDICARE (WNR) MEDICARE (M) PART A Feb 10, 2013 PART A [id number] BENITO CARSON PATIENT MEDICARE (WNR) MEDICARE (M) PART B Feb 10, 2013 PART B [id number] [id number] [phone] BENITO CARSON PATIENT Selected Encounter This section includes the information on record at [place] for the Encounter. Date/Time Encounter Type Encounter Description Reason Provider Source Feb 10, 2024 11:00 AM PSYTX W PT 60 MINUTES [facility] - IND ICD-10-CM F43.12 Post-traumatic stress disorder, chronic SHANELL SMITH Mike Encounter Template Text not used by [place] Assessments - Encounter Diagnoses This section includes the primary and secondary diagnoses documented for the Encounter. Date/Time Primary/Secondary Diagnosis Diagnosis Name Provider Source Feb 10, 2024 01:51 PM PRIMARY Post-traumatic stress disorder, chronic SHANELL SMITH JACOBO Feb 10, 2024 01:51 PM SECONDARY Major depressv disorder, single episode, in partial remis SHANELL SMITH Plan of Treatment: Future Appointments (+ 6 months) and Future Tests (+/- 45 days) The Plan of Treatment section includes future care activities for the patient from all [place] treatmentfacilities. This section includes future appointments and [...] [facility] Mar 22, 2024 11:30 AM AM[place]AT[place]ICINE [place] [facility] Apr 20, 2024 11:00 AM AMBULATORY - PSYCHIATRY [facility] May 19, 2024 11:00 AM AMBULATORY - PSYCHIATRY [facility] Jun 16, 2024 11:00 AM AMBULATORY - PSYCHIATRY [facility] Jul 20, 2024 11:00 AM AMBULATORY - PSYCHIATRY [facility] Social History: Smoking Status (Most current) and Tobacco Use (All prior to encounter date) This section includes the most current, and the historical, smoking and tobacco- related health factors from the [place] facility where the Encounter took place. Current Smoking Status This section includes the most current smoking, or tobacco-related health factor, from the [place] facility where the Encounter took place. Date/Time Current Smoking Status Comment Gonzalo lin Nov 01, 2023 11:00 AM VA-TOBACCO NEVER USED [place] Tobacco Use History This section includes a history of the smoking, or tobacco-related health factors, that were collected on or before the date of the Encounter. The data comes from the [place] facility where the Encounter took place. Date/Time Smoking Status/Tobacco Use Comment F acility Sep 29, 2022 10:30 AM VA-TOBACCO FORMER USER [place] Sep 29, 2022 10:30 AM VA-TOBACCO QUIT 15 YRS OR MORE [place] Jan 21, 2021 09:00 AM VA-TOBACCO NEVER USED [place] Feb 14, 2020 01:00 PM VA-TOBACCO FORMER USER [place] Feb 14, 2020 01:00 PM VA-TOBACCO QUIT 15 YRS OR MORE [place] Jul 05, 2018 03:54 PM VA-TOBACCO FORMER USER [place] Jul 05, 2018 03:54 PM VA-TOBACCO QUIT 15 YRS OR MORE [place] May 19, 2017 01:01 PM QUIT TOBACCO USE > 7 YEARS AGO [place] Apr 29, 2016 12:14 PM QUIT TOBACCO USE > 7 YEARS AGO Quit 20 years ago [place] Mar 21, 2015 02:25 PM QUIT TOBACCO USE > 7 YEARS AGO [place] May 03, 2012 12:04 PM QUIT TOBACCO USE > 7 YEARS AGO [place] Encounter Notes: All associated encounter notes This section contains the clinical notes associated to the Encounter. Date/Time Encounter Note(s) Provider Source Feb 10, 2024 11:00 AM SOCIAL WORK NOTE: LOCAL TITLE: SOCIAL WORK NOTE STANDARD TITLE: SOCIAL WORK NOTE DATE OF NOTE: FEB 10, 2024@11:00 ENTRY DATE: FEB 10, 2024@13:45:34 AUTHOR: SHANELL SMITH COSIGNER: URGENCY: STATUS: COMPLETED INFORMED CONSENT REVIEWED: At beginning of session reviewed rights and limits of confidentiality, mandatory reporting situations, duty to warn and protect, Jesus Warning, (if treatment team finds patient to be an acute danger to himself or others, that this information could be relayed to a court of law and presented to a rheostat assembler), and DOD access for active duty service members. Provided Suicide Prevention Hotline number, and other contact numbers as necessary. 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 SESSION FOCUS: Met with [place] face to face for individual counseling. stated when he comes here for appts he has memories of his dog sitting and waiting to come to the office. [place] was very emotional talking about it. He stated his vacation to [place] was good. He was impressed with his daughter because she is showing an interest in fishing. She has taken it up as a hobby. [place] spoke about getting another puppy but is not sure about the timing. He also needs to get surgery on his shoulder. He feels he procrastinates about these things and more. stated his moods are stable and he has the support of friends and family. INTERVENTIONS: Psychotherapeutic Interventions: [place]; Reflective listening and [...] for: 03/16/24 at 10am /lili/ LUCY FORREST Special Skills Officer Mental Health Signed: 02/10/2024 13:51 SHANELL SMITH
--- OUTSIDE RECORDS SUMMARY | 2024-08-22 11:15 | XMS_ITS | Encounter Summary ---
Author Name [facility] [place] Organization [facility] [place] [facility] [place] Address [address] [place] [address] Care Team Providers Care Railroad Car Checker Name Role Phone ARNOLDO PERSAUD Primary Care [...] O MEDEX BRONZ E Apr 12, 2014 [id number] WILLOREN, OMAS PATIENT [place] MED[place]ARE SUPPLEMEN KATHRYN MEDEX BRONZ E Mar 12, 2013 [id number] [phone] WILZ,TH [place] PATIENT [place] KATHRYN MEDEX BRONZ E Mar 12, 2013 [id number] ALLI,TH OMAS PATIENT MEDICARE (WNR) MEDICARE (M) PART A Feb 10, 2013 PART A [id number] BENITO CARSON PATIENT MEDICARE (WNR) MEDICARE (M) PART B Feb 10, 2013 PART B [id number] [place]12 BENITO CARSON PATIENT MEDICARE (WNR) MEDICARE (M) PART A Feb 10, 2013 PART A [id number] [place]12 BENITO CARSON PATIENT MEDICARE (WNR) MEDICARE (M) PART B Feb 10, 2013 PART B [id number] [place]12 [phone] BENITO CARSON PATIENT Selected Encounter This section includes the information on record at [place] for the Encounter. Date/Time Encounter Type Encounter Description Reason Provider Source Dec 09, 2023 11:00 AM PSYTX W PT 60 [facility]UTES [facility] - [facility] ICD-10-CM F43.12 Post-traumatic stress disorder, chronic SHANELL SMITH Mike Encounter Template Text not used by [place] Assessments - Encounter Diagnoses This section includes [...] 21, 2023 10:00 AM AMBULATORY - MEDICINE [facility] ([id number]) Dec 28, 2023 10:00 AM AMBULATORY - MEDICINE [facility] ([id number]) Jan 04, 2024 10:00 AM AMBULATORY - NONE [place] [facility] [place] [facility] Jan 06, 2024 11:00 AM AMBULATORY - PSYCHIATRY [facility] Jan 11, 2024 10:00 AM AM[place]UL[place]ORY - NONE [place] [facility] [place] [facility] Feb 10, 2024 11:00 AM AMBULATORY - PSYCHIATRY [facility] Mar 16, 2024 10:00 AM AMBULATORY - PSYCHIATRY [facility] Mar 22, 2024 11:30 AM AMBULATORY - MEDICINE [place] [facility] [place] [facility] Apr 20, 2024 11:00 AM AMBULATORY - PSYCHIATRY [facility] May 19, 2024 11:00 AM AMBULATORY - PSYCHIATRY [facility] Social History: Smoking Status (Most current) and Tobacco Use (All prior to encounter date) This section includes the most current, and the historical, smoking and tobacco- related health factors from the [place] facility where the Encounter took place. Current Smoking Status This section includes the most current smoking, or tobacco-related health factor, from the [place] facility where the Encounter took place. Date/Time Current Smoking Status Comment Facil [facility] Nov 01, 2023 11:00 AM VA-TOBACCO NEVER USED [facility] Tobacco Use History This section includes a history of the smoking, or tobacco-related health factors, that were collected on or before the date of the Encounter. The data comes from the [place] facility where the Encounter took place. Date/Time Smoking Status/Tobacco Use Comment F acility Sep 29, 2022 10:30 AM VA-TOBACCO FORMER USER [facility] Sep 29, 2022 10:30 AM VA-TOBACCO QUIT 15 YRS OR MORE [facility] Jan 21, 2021 09:00 AM VA-TOBACCO NEVER USED [facility] Feb 14, 2020 01:00 PM VA-TOBACCO FORMER USER [facility] Feb 14, 2020 01:00 PM VA-TOBACCO QUIT 15 YRS OR MORE [facility] Jul 05, 2018 03:54 PM VA-TOBACCO FORMER USER [facility] Jul 05, 2018 03:54 PM VA-TOBACCO QUIT 15 YRS OR MORE [facility] May 19, 2017 01:01 PM QUIT TOBACCO USE > 7 YEARS AGO [facility] Apr 29, 2016 12:14 PM QUIT TOBACCO USE > 7 YEARS AGO Quit 20 years ago [facility] Mar 21, 2015 02:25 PM QUIT TOBACCO USE > 7 YEARS AGO [facility] May 03, 2012 12:04 PM QUIT TOBACCO USE > 7 YEARS AGO [facility] Radiology Reports: +/- 30 days of the [...] the Encounter. The data comes from all [place] treatment facilities. Date/Time Radiology Report Provider Source Dec 02, 2023 11:00 AM BONE DENSITY DXA: PETTY CARSON [id number] -[id number] M Exm Date: DEC 02, 2023@11:00 Req Phys: MARILU,BALTA Pat Loc: CWM/SO/PACT 9 (Req'g Loc) Img Loc: [facility]BUILDING 1 Service: [facility] [place] [address] (Case [id number] COMPLETE) BONE DENSITY AXIAL-DXA (RAD Detailed) CPT:39667 Reason for Study: Screen Clinical History: Report Status: Verified Date Reported: DEC 02, 2023 Date Verified: DEC 02, 2023 Retail Advertising Sales Manager E-Sig:/ES/MOLLY LOCKWOOD JR Report: Study: DEXA [...] than 127 lbs., or smoking). 6. The [place] [employer] recommends pharmacologic therapy for [...] Foundation recommendations can be found in http://www.nof.org/hcp/pra allenice/oygekxyz-njt-itgpycd l-guidelines/ clinicians-guide. All treatment decisions require clinical [...] treatment guidelines: National Osteoporosis Foundation https://www.nof.org/tisha ts/diagnosis-information/b mqy-jhqbhsi-s amtesting/ International Osteoporosis Foundation https://www.iofbonehealth. org/ International Society for Clinical Densitometry https://www.iscd.org/patie nt-information/ FRAX(R) Fracture Risk Assessment Tool https://www.varun.ac.u k/FRAX/ Primary Diagnostic Code: No immediate attention required Primary Interpreting Staff: MOLLY LOCKWOOD JR, Radiologist (Retail Advertising Sales Manager) /MOLLY BLAS JR [place] [facility] [place] [facility] Encounter Notes: All associated encounter [...] court of law and presented to a senior gamemaster), and DOD access for active duty service members. Provided Suicide Prevention Hotline number, and other contact numbers as necessary. 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 Especially when I come here. SESSION FOCUS: Met with face to face for individual counseling. stated he has moments that just wash over him which make him very emotional. Most of the time he is busy and distracted but certain things remind him of his dog and the emotions are overwhelming. [place] spoke about some social interactions he had. Went to a movie with a friend and continues to walk with friend in the mornings even though he doesn't have his dog. [place] reported he is going to [place] to see his daughter in December. She will be working remotely but he is happy to hang out with her . has two new kittens who have filled the void of the loss of his dog. INTERVENTIONS: Psychotherapeutic Interventions: [place]; Reflective listening and support ASSESSMENT: BRIEF ASSESSMENT [...] planned for: 01/06/24 at 11am /lili/ LUCY FORREST National Recruiter Mental Health Signed: 12/09/2023 12:36 SHANELL SMITH
--- OUTSIDE RECORDS SUMMARY | 2024-08-22 11:15 | XMS_ITS | Encounter Summary ---
Author Name [facility] [place] Organization [facility] [place] [facility] [place] Address [address] [place] [address] Care Team Providers Care Ase Certified Technician Name Role Phone ARNOLDO PERSAUD Primary Care [...] O MEDEX BRONZ E Apr 12, 2014 [id number] WILLOREN, OMAS PATIENT [place] MED[place] SUPPLEMEN KATHRYN MEDEX BRONZ E Mar 12, 2013 [id number] WILZ,TH [place] PAT[place] KATHRYN MEDEX BRONZ E Mar 12, 2013 [id number] [phone] ALLI,TH OMAS PATIENT MEDICARE (WNR) MEDICARE (M) PART A Feb 10, 2013 PART A [id number] [place] [phone] BENITO CARSON PATIENT MEDICARE (WNR) MEDICARE (M) PART B Feb 10, 2013 PART B [id number] TX12 [phone] BENITO CARSON PATIENT MEDICARE (WNR) MEDICARE (M) PART A Feb 10, 2013 PART A [id number] [id number] BENITO CARSON PATIENT MEDICARE (WNR) MEDICARE (M) PART B Feb 10, 2013 PART B [id number] TX12 BENITO CARSON PATIENT Selected Encounter This section includes the information on record at [place] for the Encounter. Date/Time Encounter Type Encounter Description Reason Provider Source Apr 20, 2024 11:00 AM PSYTX W PT 60 MINUTES [facility] - IND ICD-10-CM F43.12 Post-traumatic stress disorder, chronic SHANELL SMITH Mike Encounter Template Text not used by [place] Assessments - Encounter Diagnoses This section includes the primary and secondary diagnoses documented for the Encounter. Date/Time Primary/Secondary Diagnosis Diagnosis Name Provider Source Apr 20, 2024 12:08 PM PRIMARY Post-traumatic stress disorder, chronic SHANELL SMITH Apr 20, 2024 12:08 PM SECONDARY Major depressv disorder, single episode, in partial remis SHANELL SMITH Plan of Treatment: Future Appointments (+ 6 months) and Future Tests (+/- 45 days) The Plan of Treatment section includes future care activities for the patient from all [place] treatmentfacilities. This section includes future appointments and future orders which are active, pending or scheduled. Future Appointments This section includes appointments that were scheduled to occur 6 months from the date of the Encounter, up to a maximum of 20 appointments. The data comes from all [place] treatment facilities. Appointment Date/Time Appointment Type Appointme nt Facility Name May 19, 2024 11:00 AM AMBULATORY - PSYCHIATRY [facility] Jun 16, 2024 11:00 AM AMBULATORY - PSYCHIATRY [facility] Jul 20, 2024 11:00 AM AMBULATORY - PSYCHIATRY [facility] August 17, 2024 11:00 AM AMBULATORY - PSYCHIATRY [facility] August 22, 2024 10:30 AM AMBULATORY - MEDICINE [place] C [facility] [place] [facility] Oct 05, 2024 11:00 AM AMBULATORY - PSYCHIATRY [facility] [...] of theEncounter. The data comes from all [place] treatment facilities. Test Date/Time Test Type Test Details Facility Name May 03, 2024 12:00 AM Laboratory - Chemistry Order VITAMIN B12 BLOOD (SST-SERUM) [facility] May 03, 2024 12:00 AM Laboratory - Chemistry Order VITAMIN D 25-OH (Therapy monitor) BLOOD (SST-SERUM) [facility] May 03, 2024 12:00 AM Laboratory - Chemistry Order MAGNESIUM BLOOD (SST-SERUM) [facility] May 03, 2024 12:00 AM Laboratory - Chemistry Order BASIC METABOLIC PANEL (fasting) BLOOD (SST-SERUM) [facility] May 03, 2024 12:00 AM Laboratory - Chemistry Order LIPID PANEL FASTING BLOOD (SST-SERUM) [facility] May 03, 2024 12:00 AM Laboratory - Chemistry Order LIVER FUNCTION BLOOD (SST-SERUM) [facility] May 03, 2024 12:00 AM Laboratory - Chemistry Order CBC AND DIFF (AUTO) BLOOD (LAV-BLOOD) [facility] May 03, 2024 12:00 AM Laboratory - Chemistry Order HEMOGLOBIN A1C PANEL BLOOD (LAV-BLOOD) [facility] May 03, 2024 12:00 AM Laboratory - Chemistry Order TSH BLOOD (SST-SERUM) [facility] Social History: Smoking Status (Most current) and Tobacco Use (All prior to encounter date) This section includes the most current, and the historical, smoking and tobacco- related health factors from the [place] facility where the Encounter took place. Current Smoking Status This section includes the most current smoking, or tobacco-related health factor, from the [place] facility where the Encounter took place. Date/Time Current Smoking Status Comment Facil [facility] Nov 01, 2023 11:00 AM VA-TOBACCO NEVER USED [place] Tobacco Use History This section includes a history of the smoking, or tobacco-related health factors, that were collected on or before the date of the Encounter. The data comes from the [place] facility where the Encounter took place. Date/Time Smoking Status/Tobacco Use Comment F acility Sep 29, 2022 10:30 AM VA-TOBACCO FORMER USER [place] Sep 29, 2022 10:30 AM VA-TOBACCO QUIT 15 YRS OR MORE [place] Jan 21, 2021 09:00 AM VA-TOBACCO NEVER USED [place] Feb 14, 2020 01:00 PM VA-TOBACCO FORMER USER [place] Feb 14, 2020 01:00 PM VA-TOBACCO QUIT 15 YRS OR MORE [place] Jul 05, 2018 03:54 PM VA-TOBACCO FORMER USER [place] Jul 05, 2018 03:54 PM VA-TOBACCO QUIT 15 YRS OR MORE [place] May 19, 2017 01:01 PM QUIT TOBACCO USE > 7 YEARS AGO [place] Apr 29, 2016 12:14 PM QUIT TOBACCO USE > 7 YEARS AGO Quit 20 years ago [facility] Mar 21, 2015 02:25 PM QUIT TOBACCO USE > 7 YEARS AGO [place] May 03, 2012 12:04 PM QUIT TOBACCO USE > 7 YEARS AGO [place] Encounter Notes: All associated encounter notes This section contains the clinical notes associated to the Encounter. Date/Time Encounter Note(s) Provider Source Apr 20, 2024 11:00 AM SOCIAL WORK NOTE: LOCAL TITLE: SOCIAL WORK NOTE STANDARD TITLE: SOCIAL WORK NOTE DATE OF NOTE: APR 20, 2024@11:00 ENTRY DATE: APR 20, 2024@12:00:11 AUTHOR: SHANELL SMITH EXP COSIGNER: URGENCY: STATUS: COMPLETED INFORMED CONSENT REVIEWED: At beginning of session reviewed rights and limits of confidentiality, mandatory reporting situations, duty to warn and protect, Jesus Warning, (if treatment team finds patient to be an acute danger to himself or others, that this information could be relayed to a court of law and presented to a magisterial district judge), and DOD access for active duty service members. Provided Suicide Prevention Hotline number, and other contact numbers as necessary. VISIT DURATION 60 minutes [place] identified with 2 identifiers: Full Name, Facial Recognition DIAGNOSES: PTSD chronic (F43.12); MDD single episode in partial remission. VETERANS STATEMENT OF GOALS/CONCERNS: I'm ok, I have had some silver linings in the past few days. SESSION FOCUS: Met with face to face for individual counseling. [place] stated he had some issues yesterday when out doing errands and things just happened to fall into place and he happily got everything accomplished. [place] spoke about the current state of our country and some concerns of incoming administration. He stayed home for [place] which was fine for him. He has 2 cats now that help keep him focused. He still often thinks about his dog, he would like to get another but will wait until he returns from [place]. He is going with his daughter and JERO in June for 2 weeks. INTERVENTIONS: Psychotherapeutic Interventions: [place]; Reflective listening and support ASSESSMENT: BRIEF ASSESSMENT [...] PLAN FOR FOLLOW-UP: Next session planned for: 05/19/24 at 11am /lili/ LUCY FORREST Business Performance Advisor Mental Health Signed: 04/20/2024 12:08 SHANELL SMITH
--- OUTSIDE RECORDS SUMMARY | 2024-08-22 11:15 | XMS_ITS | Encounter Summary ---
Author Name [facility] [place] Organization [facility] [place] Address [address] [place] [address] Care Team Providers Care Train Brakeman Name Role Phone ARNOLDO PERSAUD Primary Care [...] O MEDEX BRONZ E Apr 12, 2014 [id number] WILLOREN, OMAS PATIENT [place] MED[place]ARE SUPPLEMEN KATHRYN MEDEX BRONZ E Mar 12, 2013 [id number] WILZ,TH OM[place] PATIENT [place] KATHRYN MEDEX BRONZ E Mar 12, 2013 [id number] [phone] ALLI,TH OMAS PATIENT MEDICARE (WNR) MEDICARE (M) PART A Feb 10, 2013 PART A [id number] [phone] BENITO CARSON PATIENT MEDICARE (WNR) MEDICARE (M) PART B Feb 10, 2013 PART B [id number] [id number] BENITO CARSON PATIENT MEDICARE (WNR) MEDICARE (M) PART A Feb 10, 2013 PART A [id number] TX12 BENITO CARSON PATIENT MEDICARE (WNR) MEDICARE (M) PART B Feb 10, 2013 PART B [id number] TX12 BENITO CARSON PATIENT Selected Encounter This [...] Post-traumatic stress disorder, chronic SHANELL SMITH JACOBO Jan 06, 2024 12:56 PM SECONDARY Major [...] 11, 2024 10:00 AM AMBULATORY - NONE [place] [facility] DEL[facility] Feb 10, 2024 11:00 AM AMBULATORY - PSYCHIATRY [facility] Mar 16, 2024 10:00 AM AMBULATORY - PSYCHIATRY [facility] Mar 22, 2024 11:30 AM AMBULATORY - MEDICINE [place] C [facility] Apr 20, 2024 11:00 AM AMBULATORY - PSYCHIATRY [facility] May 19, 2024 11:00 AM AMBULATORY - PSYCHIATRY [facility] Jun 16, 2024 11:00 AM AMBULATORY - PSYCHIATRY [facility] Social History: Smoking Status (Most current) and Tobacco Use (All prior to encounter date) This section includes the most current, and the historical, smoking and tobacco- related health factors from the [facility] where the Encounter took place. Current Smoking Status This section includes the most current smoking, or tobacco-related health factor, from the [place] facility where the Encounter took place. Date/Time Current Smoking Status Comment [facility] Nov 01, 2023 11:00 AM VA-TOBACCO NEVER USED [place] Tobacco Use History This section includes a history of the smoking, or tobacco-related health factors, that were collected on or before the date of the Encounter. The data comes from the [facility] where the Encounter took place. Date/Time Smoking Status/Tobacco Use Comment F acility Sep 29, 2022 10:30 AM VA-TOBACCO FORMER USER [place] Sep 29, 2022 10:30 AM VA-TOBACCO QUIT 15 YRS OR MORE [place] Jan 21, 2021 09:00 AM VA-TOBACCO NEVER USED [place] Feb 14, 2020 01:00 PM VA-TOBACCO FORMER USER [place] Feb 14, 2020 01:00 PM VA-TOBACCO QUIT 15 YRS OR MORE [place] Jul 05, 2018 03:54 PM VA-TOBACCO FORMER USER [place] Jul 05, 2018 03:54 PM VA-TOBACCO QUIT 15 YRS OR MORE [place] May 19, 2017 01:01 PM QUIT TOBACCO USE > 7 YEARS AGO [place] Apr 29, 2016 12:14 PM QUIT TOBACCO USE > 7 YEARS AGO Quit 20 years ago [place] Mar 21, 2015 02:25 PM QUIT TOBACCO USE > 7 YEARS AGO [place] May 03, 2012 12:04 PM QUIT TOBACCO USE > 7 YEARS AGO [place] Encounter Notes: All associated encounter notes This section contains the clinical notes associated to the Encounter. Date/Time Encounter Note(s) Provider Source Jan 06, 2024 11:00 AM SOCIAL WORK NOTE: LOCAL TITLE: SOCIAL WORK NOTE STANDARD TITLE: SOCIAL WORK NOTE DATE OF NOTE: JAN 06, 2024@11:00 ENTRY DATE: JAN 06, 2024@12:00:53 AUTHOR: SHANELL SMITH COSIGNER: URGENCY: STATUS: COMPLETED INFORMED CONSENT REVIEWED: At beginning of session reviewed rights and limits of confidentiality, mandatory reporting situations, duty to warn and protect, Jesus Warning, (if treatment team finds patient to be an acute danger to himself or others, that this information could be relayed to a court of law and presented to a streetcar starter), and DOD access for active duty service members. Provided Suicide Prevention Hotline number, and other contact numbers as necessary. 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 SESSION FOCUS: Met with [place] face to face for individual counseling. stated he is still struggling with the loss of his dog. He has his chickens and kittens at home but misses the dog terribly. He stated because she had trauma in her history, Victor M connected with her on a deeper level. Victor M is going to [place] tomorrow to visit his daughter. He will be gone for 2.5 weeks. He enjoys his time there, he goes for walks on the beach and ky[place] with daughter's . stated he continues to go for walks at home in the morning even without the dog. 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
--- OUTSIDE RECORDS SUMMARY | 2024-08-22 11:16 | XMS_ITS | Encounter Summary ---
Author Name [facility] Address [address] [place] [address] Care Team Providers Care Mechanical Specialist Name Role Phone ARNOLDO PERSAUD Primary Care [...] O MEDEX BRONZ E Apr 12, 2014 [id number] [phone] WILLOR[place], [place] SU[place] KATHRYN MEDEX BRONZ E Mar 12, 2013 [id number] WILZ,TH [place] KATHRYN MEDEX BRONZ E Mar 12, 2013 [id number] ALLI,TH [place] PATIENT MEDICARE (WNR) MEDICARE (M) PART A Feb 10, 2013 PART A [id number] BENITO CARSON PATIENT MEDICARE (WNR) MEDICARE (M) PART B Feb 10, 2013 PART B [id number] BENITO CARSON PATIENT MEDICARE (WNR) MEDICARE (M) PART A Feb 10, 2013 PART A [id number] [phone] BENITO CAROSN PATIENT MEDICARE (WNR) MEDICARE (M) PART B Feb 10, 2013 PART B [id number] BENITO CARSON PATIENT Selected Encounter This section includes the information on record at [facility] for the Encounter. Date/Time Encounter Type Encounter Description Reason Provider Source May 19, 2024 11:00 AM PSYTX W PT [facility] MINUTES [facility] ICD-10-CM F43.12 Post-traumatic stress disorder, chronic SHANELL SMITH Mike Encounter Template Text not used by [facility] Assessments - Encounter Diagnoses This section includes the primary and secondary diagnoses documented for the Encounter. Date/Time Primary/Secondary Diagnosis Diagnosis Name Provider Source May 19, 2024 12:23 PM PRIMARY Post-traumatic stress disorder, chronic SHANELL SMITH May 19, 2024 12:23 PM SECONDARY Major depressv disorder, single episode, [...] Appointment Type Appointme nt Facility Name Jun 16, 2024 11:00 AM AMBULATORY - PSYCHIATRY [facility] Jul 20, 2024 11:00 AM AMBULATORY - PSYCHIATRY [facility] August 17, 2024 11:00 AM AMBULATORY - PSYCHIATRY [facility] August 22, 2024 10:30 AM AMBULATORY - MEDICINE [facility] [place] [facility] Oct 05, 2024 11:00 AM AMBULATORY - PSYCHIATRY [facility] Active, Pending, and Scheduled Orders This [...] VITAMIN D 25-OH (Therapy monitor) BLOOD (SST-SERUM) [facility] May 03, 2024 12:00 AM Laboratory - Chemistry Order VITAMIN B12 BLOOD (SST-SERUM) [facility] May 03, 2024 12:00 AM Laboratory - Chemistry Order MAGNESIUM BLOOD (SST-SERUM) [facility] May 03, 2024 12:00 AM Laboratory - Chemistry Order BASIC METABOLIC PANEL (fasting) BLOOD (SST-SERUM) [facility] May 03, 2024 12:00 AM Laboratory - Chemistry Order LIPID PANEL FASTING BLOOD (SST-SERUM) [facility] May 03, 2024 12:00 AM Laboratory - Chemistry Order LIVER FUNCTION BLOOD (SST-SERUM) [facility] May 03, 2024 12:00 AM Laboratory - Chemistry Order CBC AND DIFF (AUTO) BLOOD (LAV-BLOOD) [facility] May 03, 2024 12:00 AM Laboratory - Chemistry Order HEMOGLOBIN A1C PANEL BLOOD (LAV-BLOOD) [facility] May 03, 2024 12:00 AM Laboratory - Chemistry Order TSH BLOOD (SST-SERUM) [facility] Social History: Smoking Status (Most current) [...] 01, 2023 11:00 AM VA-TOBACCO NEVER USED [facility] Tobacco Use History This section includes a history of the smoking, or tobacco-related health factors, that were collected on or before the date of the Encounter. The data comes from the [facility] facility where the Encounter took place. Date/Time Smoking Status/Tobacco Use Comment F acility Sep 29, 2022 10:30 AM VA-TOBACCO FORMER USER [facility] Sep 29, 2022 10:30 AM VA-TOBACCO QUIT 15 YRS OR MORE [facility] Jan 21, 2021 09:00 AM VA-TOBACCO NEVER USED [facility] Feb 14, 2020 01:00 PM VA-TOBACCO FORMER USER [facility] Feb 14, 2020 01:00 PM VA-TOBACCO QUIT 15 YRS OR MORE [facility] Jul 05, 2018 03:54 PM VA-TOBACCO FORMER USER [facility] Jul 05, 2018 03:54 PM VA-TOBACCO QUIT 15 YRS OR MORE [facility] May 19, 2017 01:01 PM QUIT TOBACCO USE > 7 YEARS AGO [facility] Apr 29, 2016 12:14 PM QUIT TOBACCO USE > 7 YEARS AGO Quit 20 years ago [facility] Mar 21, 2015 02:25 PM QUIT TOBACCO USE > 7 YEARS AGO [facility] May 03, 2012 12:04 PM QUIT TOBACCO USE > 7 YEARS AGO [facility] Encounter Notes: All associated encounter notes This section contains the clinical notes associated to the Encounter. Date/Time Encounter Note(s) Provider Source May 19, 2024 11:00 AM SOCIAL WORK NOTE: LOCAL TITLE: SOCIAL WORK NOTE STANDARD TITLE: SOCIAL WORK NOTE DATE OF NOTE: MAY 19, 2024@11:00 ENTRY DATE: MAY 19, 2024@12:16:13 AUTHOR: SHANELL SMITH EXP COSIGNER: URGENCY: STATUS: COMPLETED INFORMED CONSENT REVIEWED: At beginning of session reviewed rights and limits of confidentiality, mandatory reporting situations, duty to warn and protect, Jesus Warning, (if treatment team finds patient to be an acute danger to himself or others, that this information could be relayed to a court of law and presented to a judge's clerk), and DOD access for active duty service members. Provided Suicide Prevention Hotline number, and other contact numbers as necessary. 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 SESSION FOCUS: Met with Lattimore face to face for individual counseling. stated he lost more of his chickens and will wait until he returns from [place] to get more and look for a dog. Lattimore is very concerned about the state of our country. Of course he is anxious about his VA benefits and social security. states his moods are stable, he has 2 cats at home who help him enormously. He has friends and his daughter who are supportive. INTERVENTIONS: Psychotherapeutic Interventions: [place]; Reflective listening and support ASSESSMENT: BRIEF ASSESSMENT [...] PLAN FOR FOLLOW-UP: Next session planned for: 06/16/24 at 11am /lili/ LUCY FORREST [employer] Filling Mental Health Signed: 05/19/2024 12:23 SHANELL SMITH
--- OUTSIDE RECORDS SUMMARY | 2024-08-22 11:16 | XMS_ITS | Continuity of Care Document ---
Author Name [facility] Organization [facility] Care Team Providers Care Agronomist Name Role Phone [facility] Unavailable Unavailable Problems Combined list of problems from Department of Defense and Veterans Affairs facilities. It does not include entries that were removed or entered in error. Problem Status Onset Date Problem Type Date of Resolution Comments Source Anorectal fistula Active Condition [facility] Anxiety State NEC (ICD-9-CM 300.09) Active Condition [facility] Artificial knee joint present Active Condition [facility] Benign hypertension (SNOMED CT 92886548) Active Condition Feb 14, 2020 Entered By: YELENA MICHEL Comment: on HCTZ / lisinopril [place] Bereavement * (ICD-9-CM V62.82) Active Condition [facility] Co-management Active Condition August Entered By: YELENA MICHEL Comment: Dr. León, [facility] ([place]) [facility] Coronary artery disease Active Condition [facility] History of coronary artery disease with stent placement Active Condition Feb 14, 2020 Entered By: YELENA MICHEL Comment: on ASA / statinNov 2019 Entered By: YELENA MICHEL [facility] Entered By: YELENA MICHEL Comment: cartoid u/s 02/2021 - no hemodynamically sifnidicant disease [facility] Hyperlipidemia (SNOMED CT 45762680) Active Condition Feb 14, 2020 Entered By: YELENA MICHEL Comment: on high intensity atorvastatin / zetia [place] Hypothyroidism (SNOMED CT 13074441) Active Condition May 08, 2022 Entered By: YELENA MICHEL Comment: levothyroxine 125mcg [place] Knee Joint replacement Status (Prosthetic or Artificial Device) Active Condition [facility] Major depressive disorder Active Condition [facility] Normocytic anemia Active Condition Jul 30, 2022 Entered By: YELENA MICHEL Comment: [facility] Entered By: YELENA MICHEL Comment: hgb 11.9 (May 2022) [place] Osteoarthritis (SNOMED CT 356644373) Active Condition [place] Osteoporosis Active Condition May 08, 2022 Entered By: YELENA MICHEL Comment: DEXA June 2021 [place] Pain in right foot Active Condition August 15, 2019 Entered By: YELENA MICHEL Comment: moves around [facility] Posttraumatic stress disorder Active Condition Sep 25, 2014 Entered By: JIMI HASTINGS Comment: Per 09/13/14 C&P assessment [facility] Rotator cuff impingement syndrome Active Condition [facility] Screening for Malignant Neoplasms of colon Active Condition Jul 04, 2012 Entered By: ALEXSANDRA CARR Comment: 01/16/2007 Within normal limits no f/u mentioned in report [place] Secondary osteoarthritis (SNOMED CT 440209508) Active Condition [place] Tinnitus * (ICD-9-CM 388.30) Active Condition [place] Adjustment Disorder with mixed Anxiety and depressed mood (ICD-9-CM 309.28) Inactive Condition 12/14/2012 [facility] Diagnosis: ICD-10-CM F43.12 Post-traumatic stress disorder, chronic Active Diagnosis [place] Diagnosis: ICD-10-CM Z23 Encounter for immunization Active Diagnosis [place] Diagnosis: ICD-10-CM E66.3 Overweight Active Diagnosis [facility] ([facility]) Diagnosis: ICD-10-CM E66.9 Obesity, unspecified Active Diagnosis [facility] ([facility]) Diagnosis: ICD-10-CM Z00.01 Encounter for general adult medical exam w abnormal findings Active Diagnosis [place] Diagnosis: ICD-10-CM M79.674 Pain in right toe(s) Active Diagnosis [place] Diagnosis: ICD-10-CM M79.644 Pain in right finger(s) Active Diagnosis [facility] Diagnosis: ICD-10-CM L02.212 Cutaneous abscess of back [any part, except buttock] Active Diagnosis [facility] Diagnosis: ICD-10-CM L72.3 Sebaceous cyst Active Diagnosis [facility] Diagnosis: ICD-10-CM L02.91 Cutaneous abscess, unspecified Active Diagnosis [place] Medications Combined list of outpatient medications from [...] HIGH CHOLESTE ROL SUBCUT ANEOUS ACTIVE 10/13/2024 [id number] 5 RICK MICHEL 2023 2 IELD ALIROCUMAB 75MG/ML INJ,PEN,1ML INJECT 75MG (1ML) SUBCUTAN EOUSLY EVERY 2 WEEKS FOR HIGH CHOLESTE ROL SUBCUT ANEOUS DISCONT INUED 09/17/2023 [id number] CORNELIA JIMENES 2022 2 IELD ASPIRIN 81MG TAB,EC TAKE ONE TABLET BY MOUTH DAILY ORAL ACTIVE ALEXSANDRA CARR 2015 [place] ASPIRIN 81MG TAB,EC TAKE ONE TABLET BY MOUTH ONCE DAILY ORAL ACTIVE DIONICIO BEYER 2015 [facility] ATORVASTATI N [place] 80MG TAB TAKE ONE TABLET BY MOUTH EVERY EVENING ORAL ACTIVE JACQUELYN LEVY 2015 [facility] DICLOFENAC NA 50MG TAB,EC TAKE ONE TABLET BY MOUTH TWICE DAILY NEEDED FOR PAIN/INF LAMMATIO N ORAL ACTIVE 05/05/2025 [id number] 5 RA LYNDSAY SORENESN 2024 180 [facility] (631GE) DICLOFENAC NA 50MG TAB,EC TAKE ONE TABLET BY MOUTH TWICE DAILY NEEDED FOR PAIN/INF LAMMATIO N ORAL DISCONT INUED 08/18/2024 [id number] 4 Rahul PAREKH 2023 180 [place] EZETIMIBE 10MG TAB TAKE ONE TABLET BY MOUTH ONCE DAILY TO LOWER CHOLESTE ROL ORAL ACTIVE 11/23/2024 [id number] 5 MARILUARISTEOLINARI O 2023 90 [place] EZETIMIBE 10MG TAB TAKE ONE TABLET BY MOUTH ONCE DAILY TO LOWER CHOLESTE ROL ORAL DISCONT INUED 09/17/2023 [id number] 4 CORNELIA JIMENES R 2022 90 [place] HYDROCHLORO THIAZIDE 25MG TAB TAKE ONE TABLET BY MOUTH ONCE DAILY FOR HIGH BLOOD PRESSURE ORAL ACTIVE 12/17/2024 [id number] 5 MARILULESLYARI O 2023 90 [place] HYDROCHLORO THIAZIDE 25MG TAB TAKE ONE TABLET BY MOUTH ONCE DAILY FOR HIGH BLOOD PRESSURE ORAL DISCONT INUED 10/05/2023 [id number] 4 MARILULESLYARI O 2022 90 [place] LEVOTHYROXI NE NA 125MCG TAB TAKE ONE TABLET BY MOUTH EVERY MORNING 30 MINUTES BEFORE BREAKFAS T FOR THYROID - TAKE ON AN EMPTY STOMACH WITH A FULL GLASS OF WATER ORAL ACTIVE 03/19/2025 [id number] 5 RA AUGUSTINE PERSAUD 2023 90 [place] LEVOTHYROXI NE NA 125MCG TAB (SYNTHROID) TAKE ONE TABLET BY MOUTH EVERY MORNING 30 MINUTES BEFORE BREAKFAS T FOR THYROID - TAKE ON AN EMPTY STOMACH WITH A FULL GLASS OF WATER ORAL DISCONT INUED 05/10/2024 [id number] 4 LESLY MICHELARI O 2023 90 [place] LEVOTHYROXI NE NA 125MCG TAB (SYNTHROID) TAKE ONE TABLET BY MOUTH EVERY MORNING ORAL ACTIVE JACQUELYN LEVY 2015 [facility] LISINOPRIL 10MG TAB TAKE ONE TABLET BY MOUTH ONCE DAILY TO CONTROL BLOOD PRESSURE ORAL ACTIVE 04/25/2025 [id number] 5 RA AUGUSTINE PERSAUD 2024 90 [place] LISINOPRIL 10MG TAB TAKE ONE TABLET BY MOUTH ONCE DAILY TO CONTROL BLOOD PRESSURE ORAL DISCONT INUED 03/15/2024 [id number] 4 MARILU, APOLINARI O 2022 90 [facility] IELD LISINOPRIL 10MG TAB TAKE ONE TABLET BY MOUTH ONCE DAILY ORAL ACTIVE CAMJACQUELYN GEORGE S 2015 [place] [facility] ROSUVASTATI N CA 40MG TAB TAKE ONE TABLET BY MOUTH ONCE DAILY FOR CHOLESTE ROL ORAL ACTIVE 02/22/2025 [id number] MARILU, APOLINARI O 2023 90 [facility] IELD ROSUVASTATI N CA 40MG TAB TAKE ONE TABLET BY MOUTH ONCE DAILY FOR CHOLESTE ROL ORAL 09/17/2023 [id number] 4 CORNELIA JIMENES R 2022 90 [facility] Allergies, Adverse Reactions, Alerts Combined list of allergies from Department of Defense and Veterans Affairs facilities. It does not include entries that were removed or entered in error. Substance Category Reaction Severity Reaction type Status Date Reported Comments Source TRAMADOL Propensity to adverse reactions to drug (finding) Delirium active 8 [facility] [place] [facility] Immunizations Combined list of available immunizations from the Department of Defense and Veterans Affairs facilities. Immunization Series Date Given Administered By Site Reaction Lot Number CVX Code Drug Apartment Property Manager Status Comments Source COVID-19 (MODERNA), MRNA, LNP-S, PF, 50 MCG/0.5 ML (AGES 12+ YEARS) 2023 BECCA GAR R RIGHT DELTO ID [id number] 312 complet ed [facility] [place] INFLUENZA, HIGH-DOSE, TRIVALENT, PF 2023 BECCA GAR R LEFT DELTO ID [id number] 135 complet ed [facility] AT [facility] [place] INFLUENZA, HIGH-DOSE, QUADRIVALENT 2022 LAURA HEAD RIGHT DELTO ID [id number] 197 complet ed [facility] AT [facility] I[place] PNEUMOCOCCAL CONJUGATE PCV20, POLYSACCHARID E [id number] CONJUGATE, ADJUVANT, PF 2022 LAURA HEAD LEFT DELTO ID [id number] 216 complet ed [facility] [place] COVID-19 (PFIZER), MRNA, LNP-S, PF, ANTONIO-SUCROSE, 30 MCG/0.3 ML (AGES 12+ YEARS) 1 2022 309 complet ed HISTORICA L INFORMATI ON - SOURCE UNSPECIFI ED, [facility] RESPIRATORY SYNCYTIAL VIRUS (RSV) MAB, UNSPECIFIED 2022 315 complet ed HISTORICA L INFORMATI ON - SOURCE UNSPECIFI ED, [facility] COVID-19 (MODERNA), MRNA, LNP-S, BIVALENT BOOSTER, PF, 50 MCG/0.5 ML OR 25MCG/0.25 ML DOSE 1 2022 EVAN AMIN LEFT DELTO ID [id number] 229 complet ed [place], [facility] IELD INFLUENZA VACCINE, QUADRIVALENT, ADJUVANTED 2022 CRISTINACRESCENCIO LEFT DELTO ID [id number] 205 complet ed Completed Series, [place], Lot [id number] Expires August 27, 2022 [facility] IELD COVID-19 (PFIZER), MRNA, LNP-S, PF, 30 MCG/0.3 ML DOSE 3 2020 208 complet ed [facility] INFLUENZA VACCINE, QUADRIVALENT, ADJUVANTED 2020 205 complet ed [facility] IELD COVID-19 (MODERNA), MRNA, LNP-S, PF, 100 MCG/0.5 ML DOSE 2 2020 207 complet ed MOD; [id number]; 1 [facility] IELD COVID-19 (MODERNA), MRNA, LNP-S, PF, 100 MCG/0.5 ML DOSE 1 2020 207 complet ed MOD; [id number]; 1 [facility] IELD INFLUENZA, HIGH-DOSE, QUADRIVALENT 2019 197 complet ed [facility] INFLUENZA, UNSPECIFIED FORMULATION 2019 88 complet ed [facility] FACILIT Y DOM INFLUENZA, SEASONAL, INJECTABLE 2017 141 complet ed [facility] ZOSTER RECOMBINANT 2 2017 187 [...] FLU,3 YRS (HISTORICAL) 2013 88 complet ed [facility] FLU,3 [...] Reference Range Date Interpretation Specimen Comments Source VITAMIN D 25-OH (Therapy monitor) 25-HYDROXYV ITAMIN [...] additional information , please refer to [email or web address] [email or web address] [email or web address]/FA Q199 (This link is being provided for information al/ educational purposes only.) This test was developed and its analytical performance characteris tics have been determined by [employer] [place]. It has not been cleared or approved by the U.S. Food and Drug Administrat ion. This assay has been validated pursuant to the CLIA regulations and is used for clinical purposes. This test was developed and its analytical performance characteris tics have been determined by [employer] [place]. It has not been cleared or approved by the U.S. Food and Drug Administrat ion. This assay has been validated pursuant to the CLIA regulations and is used for clinical purposes. Test Performed by [facility], [employer] [facility], [address] [place] [address] Mike Porter M.D., Ph.D., Director of Laboratorie s , CLIA [id number] TEST PERFORMED AT: , Ordering Provider: JOSE MICHEL Report Released Date/Time: Nov 01, 2023 11:43 AM Reporting Lab: [facility] Vital [facility] DailyDigital[facility] [address] [address] Performing Lab: [facility] DailyDigital[facility] [address] [address] [facility] DailyDigital [facility] VITAMIN D 25-OH (Therapy monitor) 25-HYDROXYV [...] additional information , please refer to [email or web address] [email or web address] .com/faq/FA Q199 (This link is being provided for information al/ educational purposes only.) This test was developed and its analytical performance characteris tics have been determined by [employer] [place]. It has not been cleared or approved by the U.S. Food and Drug Administrat ion. This assay has been validated pursuant to the CLIA regulations and is used for clinical purposes. This test was developed and its analytical performance characteris tics have been determined by [employer] [place]. It has not been cleared or approved by the U.S. Food and Drug Administrat ion. This assay has been validated pursuant to the CLIA regulations and is used for clinical purposes. Test Performed by [facility], [facility] [facility], [address] [place] [address] Mike Porter M.D., Ph.D., Director of Laboratorie s , CLIA [id number] TEST PERFORMED AT: , Ordering Provider: JOSE MICHEL Report Released Date/Time: Nov 01, 2023 11:43 AM Reporting Lab: [place] [employer] [facility] ADTELLIGENCE [facility] [address] [address] Performing Lab: [place] [employer] [facility]Digital[facility] [address] [address] [place] [employer] [facility] IBTgamesYeahMobi [facility] VITAMIN D 25-OH (Therapy monitor) CALCIFEROL [...] additional information , please refer to [email or web address] [email or web address] .[email or web address]/FA Q199 (This link is being provided for information al/ educational purposes only.) This test was developed and its analytical performance characteris tics have been determined by [employer] [place]. It has not been cleared or approved by the U.S. Food and Drug Administrat ion. This assay has been validated pursuant to the CLIA regulations and is used for clinical purposes. This test was developed and its analytical performance characteris tics have been determined by [employer] [place]. It has not been cleared or approved by the U.S. Food and Drug Administrat ion. This assay has been validated pursuant to the CLIA regulations and is used for clinical purposes. Test Performed by [facility], [facility] [facility], [address] [place] [address] Mike Porter M.D., Ph.D., Director of Laboratorie s , CLIA [id number] TEST PERFORMED AT: , Ordering Provider: JOSE MICHEL Report Released Date/Time: Nov 01, 2023 11:43 AM Reporting Lab: [facility] [place] [address] [address] Performing Lab: [facility] [address] [facility] CALCIUM CALCIUM [MASS/VOLUM E] IN SERUM OR PLASMA 8.8 mg/dL 8.5 - 10.2 10/31 Specimen Type: SERUM No comment entered. Ordering Provider: JOSE MICHEL Report Released Date/Time: Nov 01, 2023 11:43 AM Reporting Lab: [facility] [place] [facility] [address] [address] Performing Lab: [facility] [address] [address] [facility] MAGNESIUM MAGNESIUM [MASS/VOLUM E] IN SERUM OR PLASMA 2.1 mg/dL 1.6 - 2.6 10/31 Specimen Type: SERUM No comment entered. Ordering Provider: JOSE MICHEL Report Released Date/Time: Nov 01, 2023 11:43 AM Reporting Lab: [facility] [place] [facility] [address] [address] Performing Lab: [facility]ERRJ[facility] [place] [facility] [address] [address] [facility]ERRRUSSELL MEDICAL CENTERN [facility]ITALCHUSE [facility] FOLATE (WROX) FOLATE [MASS/VOLUM E] IN SERUM OR PLASMA >20.00 ng/mL 5.2 10/27 Specimen Type: SERUM No comment entered. Ordering Provider: JOSE MICHEL Report Released Date/Time: Oct 21, 2023 02:23 PM Reporting Lab: [facility]RL [place] [place] [facility] [address] [address] Performing Lab: [facility]ENTERRJACK HUGHST[facility] HOSPITALTRN [facility]OSPITALUSETS [facility] [address] [facility] [place] [address] [facility] FERRITIN FERRITIN [MASS/VOLUM E] IN SERUM OR PLASMA 84 ng/mL 20 - 300 10/27 Specimen Type: SERUM No comment entered. Ordering Provider: JOSE MICHEL Report Released Date/Time: Oct 21, 2023 02:23 PM Reporting Lab: [facility]ENTERRJACK [facility] HOSPITALTRN [place] [facility] [address] [address] Performing Lab: [facility]ENTERRL TRN [facility]OSPITALUSETS [facility] [address] [address] [facility]OSPITALUSE [facility] VITAMIN B12 COBALAMIN (VITAMIN B12) [MASS/VOLUM E] IN SERUM OR PLASMA 571 pg/mL 200 - 900 10/27 Specimen Type: SERUM No comment entered. Ordering Provider: JOSE MICHEL Report Released Date/Time: Oct 21, 2023 02:23 PM Reporting Lab: [facility]ENTERRJACK [facility]OSPITALTRN [place] [facility] [address] [address] Performing Lab: [facility]ENTERRJACK [facility] HOSPITALTRN [facility]ITALCHUSETS [facility] [address] [address] [facility]ERRRUSSELL MEDICAL CENTERN [facility]OSPITALUSE [facility] IRON & TIBC PANEL IRON BINDING CAPACITY [MASS/VOLUM E] IN SERUM OR PLASMA 347 ug/dL 204 - 475 10/27 Specimen Type: SERUM No comment entered. Ordering Provider: JOSE MICHEL Report Released Date/Time: Oct 21, 2023 02:23 PM Reporting Lab: [facility]ERRR[facility] MEDICAL CENTERN [place] [facility] [address] [address] Performing Lab: [facility]PITALUSECL[facility] [address] [address] [facility]OSPITALUSE [facility] IRON & TIBC PANEL IRON [MASS/VOLUM E] IN SERUM OR PLASMA 101 ug/dL 40 - 160 10/27 Specimen Type: SERUM No comment entered. Ordering Provider: JOSE MICHEL Report Released Date/Time: Oct 21, 2023 02:23 PM Reporting Lab: [facility]PITALUSECL[facility] [address] [address] Performing Lab: [facility]ENTERRRUSSELL MEDICAL CENTERN [facility] HOSPITALUSECLIFTON[facility] [address] [address] [facility]ITALUSE [facility] IRON & TIBC PANEL IRON/IRON BINDING CAPACITY.TO KATHRYN [MASS RATIO] IN SERUM OR PLASMA 29.1 20.0 - 50.0 10/27 Specimen Type: SERUM No comment entered. Ordering Provider: JOSE MICHEL Report Released Date/Time: Oct 21, 2023 02:23 PM Reporting Lab: [facility]OSPITALUSECL[facility] [address] [address] Performing Lab: [facility]ENTERRRUSSELL MEDICAL CENTERN [facility] HOSPITALUSE[address] [address] [facility]OSPITALUSE [facility] HEMOGLOBI N A1C PANEL HEMOGLOBIN A1C/HEMOGLO BIN.TOTAL [...] May 03, 2023 09:13 AM Reporting Lab: [facility] HOSPITALUSE[address] [address] Performing Lab: [facility]ENTERRL [place] [facility] [address] [address] [facility]RL WSTRN [place] [facility] LIPID PANEL FASTING CHOLESTEROL [MASS/VOLUM E] IN SERUM OR PLASMA 91 mg/dL 10/27 Specimen Type: SERUM No comment entered. Ordering Provider: JOSE MICHEL Report Released Date/Time: May 03, 2023 09:13 AM Reporting Lab: [facility]ENTERRL [place] [facility] [address] [address] Performing Lab: [place] [facility] [place] [facility] [address] [address] [facility]ENTERRL TRN [place] [facility] LIPID PANEL FASTING TRIGLYCERID E [MASS/VOLUM E] IN SERUM OR PLASMA 84 mg/dL 0 - 150 10/27 Specimen Type: SERUM No comment entered. Ordering Provider: JOSE MICHEL Report Released Date/Time: May 03, 2023 09:13 AM Reporting Lab: [facility] [place] [facility] [address] [address] Performing Lab: [place] [facility] [place] [facility] [address] [address] [facility]ENTERRL TRN [facility]ITALUSE [facility] LIPID PANEL FASTING CHOLESTEROL IN LDL [MASS/VOLUM E] IN SERUM OR PLASMA BY CALCULATION 28 mg/dL 0 - 129 10/27 Specimen Type: SERUM No comment entered. Ordering Provider: JOSE MICHEL Report Released Date/Time: May 03, 2023 09:13 AM Reporting Lab: [facility] [place] [facility] [address] [address] Performing Lab: [place] [facility] [place] [facility] [address] [address] [facility]ENTERRL [facility]N [place] [facility] LIPID PANEL FASTING CHOLESTEROL .TOTAL/CHOL ESTEROL IN HDL [MASS RATIO] IN SERUM OR PLASMA 2.0 10/27 Specimen Type: SERUM No comment entered. Ordering Provider: JOSE MICHEL Report Released Date/Time: May 03, 2023 09:13 AM Reporting Lab: [facility] [place] [facility] [address] [address] Performing Lab: [place] [facility] [place] [facility] [address] [address] [facility]ENTERRL WSTRN [place] TS [facility] LIPID PANEL FASTING CHOLESTEROL IN HDL [MASS/VOLUM E] IN SERUM OR PLASMA 46 mg/dL 40 - 60 10/27 Specimen Type: SERUM No comment entered. Ordering Provider: JOSE MICHEL Report Released Date/Time: May 03, 2023 09:13 AM Reporting Lab: [facility]ENTERRL [place] [facility] [address] [address] Performing Lab: [place] [facility] [place] [facility] [address] [address] [facility] CENTERRJACK HUGHST[facility]IAL HOSPITALTRN [facility]ITALUSE [facility] LIVER FUNCTION PROTEIN [MASS/VOLUM E] IN SERUM OR PLASMA 6.9 g/dL 6.0 - 8.3 10/27 Specimen Type: SERUM No comment entered. Ordering Provider: JOSE MICHEL Report Released Date/Time: May 03, 2023 09:13 AM Reporting Lab: [facility]ENTERRL [place] [facility] [address] [address] Performing Lab: [place] [facility] [place] [facility] [address] [address] [facility]ENTERRL TRN [facility]CHUSE [facility] LIVER FUNCTION ALBUMIN [MASS/VOLUM E] IN SERUM OR PLASMA 4.0 g/dL 3.5 - 5.0 10/27 Specimen Type: SERUM No comment entered. Ordering Provider: JOSE MICHEL Report Released Date/Time: May 03, 2023 09:13 AM Reporting Lab: [facility]RL [place] [facility] [address] [address] Performing Lab: [place] [facility] [place] [facility] [address] [address] [facility]RL [facility] [place] [facility] LIVER FUNCTION ALKALINE PHOSPHATASE [ENZYMATIC ACTIVITY/VO LUME] IN SERUM OR PLASMA 132 U/L 40 - 150 10/27 Specimen Type: SERUM No comment entered. Ordering Provider: JOSE MICHEL Report Released Date/Time: May 03, 2023 09:13 AM Reporting Lab: [facility] [place] [facility] [address] [address] Performing Lab: [facility] [place] [facility] [facility] [address] [address] [facility] LIVER FUNCTION ASPARTATE AMINOTRANSF ERASE [ENZYMATIC ACTIVITY/VO LUME] IN SERUM OR PLASMA 32 U/L 5 - 34 10/27 Specimen Type: SERUM No comment entered. Ordering Provider: JOSE MICHEL Report Released Date/Time: May 03, 2023 09:13 AM Reporting Lab: [facility] [address] [address] Performing Lab: [facility] [address] [address] [facility] LIVER FUNCTION ALANINE AMINOTRANSF ERASE [ENZYMATIC ACTIVITY/VO LUME] IN SERUM OR PLASMA 35 U/L 10/27 Specimen Type: SERUM No comment entered. Ordering Provider: JOSE MICHEL Report Released Date/Time: May 03, 2023 09:13 AM Reporting Lab: [facility] [address] [address] Performing Lab: [facility] [address] [address] [facility] LIVER FUNCTION BILIRUBIN.T OTAL [MASS/VOLUM E] IN SERUM OR PLASMA 1.0 mg/dL 0.2 - 1.2 10/27 Specimen Type: SERUM No comment entered. Ordering Provider: JOSE MICHEL Report Released Date/Time: May 03, 2023 09:13 AM Reporting Lab: [facility] [address] [address] Performing Lab: [facility] [address] [address] [facility] Vital Signs Combined list of inpatient and outpatient Vital Signs from Department of Defense and Veterans Affairs, ranging from 12 months to all on record, depending upon the facility. Vital Sign Value Date Comments Source SYSTOLIC BLOOD PRESSURE 118 11/01/19 24 11:10:36 [facility] DIASTOLIC BLOOD PRESSURE 79 024 11:10:36 [facility] PULSE OXIMETRY 97 11/01/2023 11:10:36 [facility] WEIGHT 219.4 11/01/2023 11:10:36 [facility] BMI 35 kg/m2 11/01/2023 11:10:36 [facility] PAIN 0 11/01/2023 11:10:36 [facility] HEIGHT 66 11/01/2023 11:10:36 [facility] TEMPERATURE 96.1 11/01/2023 11:10:36 [facility] PULSE 62 11/01/2023 11:10:36 [facility] RESPIRATION 20 11/01/2023 11:10:36 [facility] Encounters Combined list of: 1) Encounters from Department of Veterans Affairs facilities going backup to the last 18 months, not all VA inpatient encounters are included; 2) Encounters from the Department of Defense facilities going backup to 280 months. Location Location Details Encounter Type Encounter Number Reason For Visit Attending Provider ADM Date DC Date Status Disposition Source [facility] [id number] 03/08 [facility] [id number] 03/09 [facility] En[facility] [id number] 03/09 [facility] [place] PS[place] W PT 60 MINUTES [id number] Diagnos is: ICD-10- CM F43.12 Post-tr aumatic stress disorde r, chronic NINA SMITHOR 03/11 [place] [facility] Out[facility] Encounter [id number] 03/15 [facility] En[facility] [id number] 03/17 [facility] Encounter [id number] 03/17 [facility] Encounter [id number] 03/23 [facility] [place] PSY[place] W PT 60 MINUTES [id number] Diagnos is: ICD-10- CM F43.12 Post-tr aumatic stress disorde r, chronic HERMINIO SMITH 04/13 [place] [facility] Out[facility]counter [id number] 04/21 [facility] Encounter [id number] 04/28 [facility] [place] OFF/OP EST AUGUST X REQ PHY/QHP [id number] Diagnos is: ICD-10- CM L02.212 [place] us abscess of back [any part, except buttock ] KWASI MONTANA 04/28 [place] [facility] Out[facility] Encounter [id number] 04/28 [facility] [place] OFFICE O/P EST SF 10 MIN [id number] Diagnos is: ICD-10- CM L02.91 [place] us abscess , unspeci fied IZABELLA,KE NDRA C 04/28 [place] OFF/OP EST MAY X REQ PHY/QHP [id number] Diagnos is: ICD-10- CM L02.91 [place] us abscess , unspeci fied SONIDO,L SHAY H 04/30 [place] [facility] Outpatient Encounter [id number] 04/30 [facility] OFFICE O/P EST LOW 20 MIN [id number] Diagnos is: ICD-10- CM L02.212 [place] us abscess of back [any part, except buttock ] BASIL PAREKH NDRKilo C 04/30 [place] [facility]P EST LOW 20 MIN [id number] Diagnos is: ICD-10- CM L72.3 Sebaceo us cyst MARILU,A POLINARIO 05/03 [place] [facility] Outpatient Encounter [id number] 05/06 [facility] Outpatient Encounter [id number] 05/06 [facility] [place] OFF/OP EST MAY X REQ PHY/QHP [id number] Diagnos is: ICD-10- CM L02.212 [place] us abscess of back [any part, except buttock ] WKASI [place]TANA K 05/06 [place] [facility] Outpatient Encounter [id number] 05/07 [facility] Outpatient Encounter [id number] 05/07 [facility] [place] OFF/OP EST MAY X REQ PHY/QHP [id number] 14 Diagnos is: ICD-10- CM L02.212 [place] us abscess of back [any part, except buttock ] KWASI MONTANA 05/07 [place] [facility] Outpatient Encounter [id number] 05/07 [facility] [place] OFFICE O/P EST LOW 20 MIN [id number] Diagnos is: ICD-10- CM L02.212 [place] us abscess of back [any part, except buttock ] BASIL PAREKH 05/07 [place] [facility] Outpatient Encounter [id number] 05/11 [facility] [place] PSYTX W PT 60 MINUTES [id number] Diagnos is: ICD-10- CM F43.12 Post-tr aumatic stress disorde r, chronic LUIS,DEBOR AH 05/13 [place] OFF/OP EST MAY X REQ PHY/QHP [id number] Diagnos is: ICD-10- CM L02.212 [place] us abscess of back [any part, except buttock ] KWASI [place]NA 05/14 [place] OFF[place] O/P EST LOW 20 MIN [id number] Diagnos is: ICD-10- CM L02.212 [place] us abscess of back [any part, except buttock ] BASIL PAREKH 05/14 [place] [facility] Encounter [id number] 05/14 [facility] Encounter [id number] HERMINIO SMITH 06/07 [facility] [place] PSY[place] W PT 60 MINUTES [id number] Diagnos is: ICD-10- CM F43.12 Post-tr aumatic stress disorde r, [facility] [place] W PT 60 MINUTES [id number] 22 Diagnos is: ICD-10- CM F43.12 Post-tr aumatic stress disorde r, chronic [facility] [place] [facility] Encounter [id number] 08/08 [facility] En[facility] [id number] 08/08 [facility] [place] PSYTX W PT 60 MINUTES [id number] Diagnos is: ICD-10- CM F43.12 Post-tr aumatic stress disorde r, chronic [facility] [place] OFF/OP EST AUGUST X REQ PHY/QHP [id number] 69 Diagnos is: ICD-10- CM M79.644 Pain in right finger( s) STEPHANIA MULLER 08/17 [place] [facility] Out[facility] Encounter [id number] 08/17 [facility] [place] OFFICE O/P EST MOD 30 MIN [id number] Diagnos is: ICD-10- CM M79.674 Pain in right toe(s) IZABELLA,BASIL Reid 08/17 [facility] [place] PSYTX W PT 60 MINUTES [id number] Diagnos is: ICD-10- CM F43.12 Post-tr aumatic stress disorde r, chronic NINA SMITHOR 09/15 [place] [facility] Out[facility] Encounter [id number] 09/19 [facility] Encounter [id number] 09/19 [facility] En[facility] [id number] 09/19 [facility] Encounter [id number] 09/21 [facility] Encounter [id number] 09/21 [facility] [place] PSY[place] W PT 60 MINUTES [id number] Diagnos is: ICD-10- CM F43.12 Post-tr aumatic stress disorde r, chronic HERMINIO SMITH 10/27 [facility] [place] OFFICE O/P EST MOD 30 MIN [id number] Diagnos is: ICD-10- CM Z00.01 Encount er for general adult medical exam w abnorma l finding s Kilo MICHEL 10/31 [facility] [place] [facility] En[facility] [id number] 11/14 [facility] En[facility] [id number] 11/14 [facility] Encounter [id number] 11/14 [facility] Encounter [id number] 11/14 [facility] [place] PSYTX W PT 60 MINUTES [id number] Diagnos is: ICD-10- CM F43.12 Post-tr aumatic stress disorde r, chronic LUIS,DEBOR AH 12/08 [place] [facility] Encounter [id number] 1.12/08 [facility] Encounter [id number] 1.12/08 [facility] En[facility] [id number] 1. MARILU,A POLIBENIGNOIO 12/08 [facility] ([place] [id number] Diagnos is: ICD-10- CM E66.9 Obesity , unspeci fied RATHKE,DAILY RA 12/20 [facility] (6[facility] (6[facility] [id number] Diagnos is: ICD-10- CM E66.9 Obesity , unspeci fied RATHKE,DAILY RA 12/27 [facility] (631GE) [facility] Outpatient Encounter [id number] 12/29 [facility] Outpatient Encounter [id number] 1.12/29 [facility] Outpatient Encounter [id number] 1.12/29 [facility] (6[facility]) Outpatient Encounter [id number] 01/03 [facility] (631GE) [place] PSYTX W PT 60 MINUTES [id number] Diagnos is: ICD-10- CM F43.12 Post-tr aumatic stress disorde r, chronic HERMINIO SMITH AH 01/05 [place] [facility] Outpatient Encounter [id number] 1.01/05 [place] [facility] [place] [place] [facility] (631[place] [id number] 1GE. 13 Diagnos is: ICD-10- CM E66.3 Overwei KILLIAN Saeed RA 01/10 [facility] (631GE) [place] [facility] [place] [facility] Outpatient Encounter [id number] [facility] [place] [place] [facility] [place] Outpatient Encounter [id number] 1.01/30 [facility] [place] [place] OFF/OP EST AUGUST X REQ PHY/QHP [id number] 1BY. 80 Diagnos is: ICD-10- CM Z23 Encount er for immuniz ation KATHERINE GAR 02/08 [place] [facility] Out[facility] Encounter [id number] 02/08 [facility] Out[facility] Encounter [id number] 02/08 [facility] [place] W PT 60 MINUTES [id number] Diagnos is: ICD-10- CM F43.12 Post-tr aumatic stress disorde r, chronic LUIS,DEBOR 02/09 [place] [facility] Encounter [id number] 1.02/17 [facility] [place] W PT 60 MINUTES [id number] Diagnos is: ICD-10- CM F43.12 Post-tr aumatic stress disorde r, chronic LUIS,DEBOR 03/16 [place] [facility] Out[facility] Encounter [id number] 1. Claude HEAD 03/17 [facility] Encounter [id number] 1.03/17 [facility] Encounter [id number] 1.03/20 [facility] Encounter [id number] 03/22 [facility] Encounter [id number] 04/19 [facility] Out[facility] Encounter [id number] 04/19 [facility] [place] W PT 60 MINUTES [id number] 86 Diagnos is: ICD-10- CM F43.12 Post-tr aumatic stress disorde r, chronic HERMINIO SMITH AH 04/20 [facility] [place] [facility] [place] Outpatient Encounter [id number] 05/04 [facility] [place] PSYTX W PT 60 MINUTES [id number] 86 Diagnos is: ICD-10- CM F43.12 Post-tr aumatic stress disorde r, chronic HERMINIO SMITH AH 05/19 [facility] Outpatient Encounter [id number] 05/19 [facility] [place] PSYTX W PT 60 MINUTES [id number] 1BY. 60 Diagnos is: ICD-10- CM F43.12 Post-tr aumatic stress disorde r, chronic NINA SMITHOR AH 06/16 [facility] [place] PSYTX W PT 60 MINUTES [id number] Diagnos is: ICD-10- CM F43.12 Post-tr aumatic stress disorde r, chronic HERMINIO SMITH AH 07/20 [facility] Outpatient Encounter [id number] 08/16 [facility] [place] PSY[place] W PT 60 MINUTES [id number] 96 Diagnos is: ICD-10- CM F43.12 Post-tr aumatic stress disorde r, chronic HERMINIO SMITH AH 08/17 [facility] Social History Combined list of available smoking, tobacco, and other social history from Department of Defense and Veterans Affairs facilities. Social History Type Response Date Comment [facility] e Tobacco smoking status [facility] VA-TOBACCO NEVER USED 11/01/2023 [facility] [place] History of tobacco use VA-TOBACCO FORMER USER 09/29/2022 [place] History of tobacco use VA-TOBACCO NEVER USED 01/21/2021 [place] History of tobacco use VA-TOBACCO FORMER USER 02/14/2020 [place] History of tobacco use RI-TOBACCO QUIT 1 5 YRS OR MORE 07/05/2018 [place] History of tobacco use QUIT TOBACCO USE > 7 YEARS AGO 05/19/2017 [place] History of tobacco use QUIT TOBACCO USE > 7 YEARS AGO 04/29/2016 Quit 20 years ago [place] History of tobacco use QUIT TOBACCO USE > 7 YEARS AGO 03/21/2015 [place] History of tobacco use QUIT TOBACCO USE > 7 YEARS AGO 05/03/2012 [place] Plan of Care List of future care activities from Department of Veterans Affairs facilities. Additional future care activities may be listed in the Assessment and Plan section. Date/Time Care Activity Care Activity Detail Facili ty 08/22/2024 AMBULATORY - MEDICINE AMBULATORY - MEDICI [facility] [place] [facility]
--- OUTSIDE RECORDS SUMMARY | 2024-08-22 11:16 | XMS_ITS | Encounter Summary ---
Author Name [facility] [place] [facility] [place] [facility] [place] Address [address] [place] [address] Care Team Providers Care Director Of Manufacturing Name Role Phone ARNOLDO PERSAUD Primary Care [...] O MEDEX BRONZ E Apr 12, 2014 [id number] WILUSZ,TH OM[place] PATIENT [place] SUPPLE[place] KATHRYN MEDEX BRONZ E Mar 12, 2013 [id number] WILUSZ,TH [place] PATIENT [place] KATHRYN MEDEX BRONZ E Mar 12, 2013 [id number] WILZ,TH OMAS PATIENT MEDICARE (WNR) MEDICARE (M) PART A Feb 10, 2013 PART A [id number] [facility] [phone] BENITO CARSON PATIENT MEDICARE (WNR) MEDICARE (M) PART B Feb 10, 2013 PART B [id number] [phone] BENITO CARSON PATIENT MEDICARE (WNR) MEDICARE (M) PART A Feb 10, 2013 PART A [id number] [phone] BENITO CARSON PATIENT MEDICARE (WNR) MEDICARE (M) PART B Feb 10, 2013 PART B [id number] BENITO CARSON PATIENT Selected Encounter This section includes the information on record at [place] for the Encounter. Date/Time Encounter Type Encounter Description Reason Provider Source Dec 21, 2023 10:00 AM HYPNOTHERAPY [facility] TREATMENT ICD-10-CM E66.9 Obesity, unspecified MARGARET VELASCO Encounter Template Text not used by [place] Assessments - Encounter Diagnoses This section includes the primary and secondary diagnoses documented for the Encounter. Date/Time Primary/Secondary Diagnosis Diagnosis Name Provider Source Jan 03, 2024 07:38 AM PRIMARY Obesity, unspecified [facility] (631GE) Plan of Treatment: Future Appointments [...] 28, 2023 10:00 AM AMBULATORY - MEDICINE [facility] (6[facility]) Jan 04, 2024 10:00 AM AMBULATORY - NONE [facility] Jan 06, 2024 11:00 AM AMBULATORY - PSYCHIATRY [facility] Jan 11, 2024 10:00 AM AM[facility]ORY - [facility]ONE [facility] Feb 10, 2024 11:00 AM AMBULATORY - PSYCHIATRY [facility] Mar 16, 2024 10:00 AM AMBULATORY - PSYCHIATRY [facility] Mar 22, 2024 11:30 AM AMBULATORY - MEDICINE [facility] Apr 20, 2024 11:00 AM AMBULATORY - PSYCHIATRY [facility] May 19, 2024 11:00 AM AMBULATORY - PSYCHIATRY [facility] Jun 16, 2024 11:00 AM AMBULATORY - PSYCHIATRY [facility] Radiology Reports: +/- 30 days of [...] the Encounter. The data comes from all [place] treatment facilities. Date/Time Radiology Report Provider Source Dec 02, 2023 11:00 AM BONE DENSITY DXA: PETTY CARSON [id number] -[id number] M Exm Date: DEC 02, 2023@11:00 Req Phys: BALTA MICHEL Pat Loc: CWM/SO/PACT 9 (Req'g Loc) Img Loc: [facility] Service: Unknown [facility] [place] [address] (Case [id number] COMPLETE) BONE DENSITY AXIAL-DXA (RAD Detailed) CPT:01934 Reason for Study: Screen Clinical History: Report Status: Verified Date Reported: DEC 02, 2023 Date Verified: DEC 02, 2023 Associate Professor Physician E-Sig:/ES/MOLLY LOCKWOOD JR Report: Study: DEXA [...] than 127 lbs., or smoking). 6. The [place] [employer] recommends pharmacologic therapy for [...] Foundation recommendations can be found in http://www.nof.org/hcp/pra allenice/euwhitit-lrv-tyjxgmt l-guidelines/ clinicians-guide. All treatment decisions require clinical [...] treatment guidelines: National Osteoporosis Foundation https://www.nof.org/tisha ts/diagnosis-information/b rbo-spmpkep-r amtesting/ International Osteoporosis Foundation https://www.iofbonehealth. org/ International Society for Clinical Densitometry https://www.iscd.org/patie nt-information/ FRAX(R) Fracture Risk Assessment Tool https://www.varun.ac.u k/FRAX/ Primary Diagnostic Code: No immediate attention required Primary Interpreting Staff: MOLLY LOCKWOOD JR, Radiologist (Associate Professor Physician) /[facility] BLAS JR [facility] Encounter Notes: All associated encounter notes [...] Telehealth Agreement has been mailed to the [place]. The Telehealth Agreement was also reviewed in full at the start of this session. The [place]'s location/emergency contact number were confirmed. The Emergency Call Relay Center (E911) was available. The visit was locked for security and privacy. [place] identified with 2 identifiers: [x] Full Name [x] Address [facility] Facilitators: Margaret Velasco, PhD and Pascual Preston M.Ed., CAGS Date: 12/19/28 Diagnosis: Obesity,Unspec - Obesity, unspecified (ICD-10-CM E66.9) (Primary) CPT: 53401 and 57833, 88207 Time: 60 min REASON FOR ENCOUNTER: [place] attended session 1 of 4 of the [facility]. SUMMARY OF SESSION: Group rules and [facility] etiquette were discussed. orally consented to the [facility] telehealth agreement. Group purpose was discussed, including a pre-induction talk: Subsurface Augmentee Elint Operator provided psychoeducation about what clinical hypnosis is, [...] or thought concerns reported or observed. IMPRESSIONS: [place] was present and observed engaging in the exercise. [place]. PLAN: 1. will attend the next session of the [facility] via [facility] 2. will practice self-hypnosis and engage in health related goal. /lili/ PASCUAL PRESTON [employer] Signed: 12/21/2023 14:52 /lili/ Margaret Velasco, PhD Clinical Psychologist Cosigned: 12/22/2023 08:28 12/22/2023 ADDENDUM STATUS: COMPLETED I have reviewed this case and concur with the clinical impressions and recommendations made by this trainee who is under my clinical supervision. /lili/ Margaret Velasco PhD Clinical Psychologist Signed: 12/22/2023 08:28 PASCUAL PRESTON [facility] ([id number]) Dec 21, 2023 10:00 AM CONSULT: LOCAL TITLE: CONSULT REPORT/HYPNOSIS STANDARD TITLE: CONSULT DATE OF NOTE: DEC 21, 2023@10:00 ENTRY DATE: DEC 22, 2023@08:28:54 AUTHOR: MARGARET VELASCO EXP COSIGNER: URGENCY: STATUS: COMPLETED Consult completed. See [facility] Note dated 12/21/23 by Pascual Preston M.Ed., [facility]. /lili/ Margaret Velasco PhD Clinical Psychologist Signed: 12/22/2023 08:30 MARGARET VELASCO [facility] ([id number])
--- OUTSIDE RECORDS SUMMARY | 2024-08-22 11:16 | XMS_ITS | Encounter Summary ---
Author Name [facility] [place] [facility] [place] [facility] [place] Address [address] [place] [address] Care Team Providers Care Cutter Brake Lining Name Role Phone ARNOLDO PERSAUD Primary Care [...] O MEDEX BRONZ E Apr 12, 2014 [id number] WILLOREN, [place] PATIENT [place] SU[place]LEMEN KATHRYN MEDEX BRONZ E Mar 12, 2013 [id number] WILZ,TH [place] KATHRYN MEDEX BRONZ E Mar 12, 2013 [id number] [phone] ALLI,TH OMAS PATIENT MEDICARE (WNR) MEDICARE (M) PART A Feb 10, 2013 PART A [id number] [phone] BENITO CARSON PATIENT MEDICARE (WNR) MEDICARE (M) PART B Feb 10, 2013 PART B [id number] [id number] [phone] BENITO CARSON PATIENT MEDICARE (WNR) MEDICARE (M) PART A Feb 10, 2013 PART A [id number] [phone] BENITO CARSON PATIENT MEDICARE (WNR) MEDICARE (M) PART B Feb 10, 2013 PART B [id number] [id number] BENITO CARSON PATIENT Selected Encounter This section includes the information on record at [place] for the Encounter. Date/Time Encounter Type Encounter Description Reason Provider Source August 17, 2024 11:00 AM PSYTX W PT 60 MINUTES [facility] - IND ICD-10-CM F43.12 Post-traumatic stress disorder, chronic NINA SMITHORAH Mike Encounter Template Text not used by [place] Assessments - Encounter Diagnoses This section includes the primary and secondary diagnoses documented for the Encounter. Date/Time Primary/Secondary Diagnosis Diagnosis Name Provider Source August 17, 2024 12:32 PM PRIMARY Post-traumatic stress disorder, chronic NINA SMITHORALila CENTENO August 17, 2024 12:32 PM SECONDARY Major depressv disorder, single episode, [...] Appointment Type Appointme nt Facility Name August 22, 2024 10:30 AM AM[place]ATORY [place]ICINE [place] [facility] Oct 05, 2024 11:00 AM AMBULATORY - PSYCHIATRY [facility] Active, Pending, and Scheduled Orders This section includes a listing of several types of active, pending, and scheduled orders, including clinic medications orders, diagnostic test orders, procedure orders and consult orders; where the start date of the order is 45 days before the date of the Encounter or 45 days after the date of theEncounter. The data comes from all [place] treatment facilities. Test Date/Time Test Type Test Details Facility Name August 16, 2024 01:33 PM Consult Order COMMUNITY CARE-GI GENERAL Cons [facility] [place] [facility] [place] Social History: Smoking Status [...] place. Date/Time Current Smoking Status Comment Facil [facility] Nov 01, 2023 11:00 AM VA-TOBACCO NEVER USED AVENUE Tobacco Use History This section includes a history of the smoking, or tobacco-related health factors, that were collected on or before the date of the Encounter. The data comes from the [facility] where the Encounter took place. Date/Time Smoking Status/Tobacco Use Comment F acility Sep 29, 2022 10:30 AM VA-TOBACCO FORMER USER AVENUE Sep 29, 2022 10:30 AM VA-TOBACCO QUIT [address] Jan 21, 2021 09:00 AM VA-TOBACCO NEVER USED AVEN[facility] Feb 14, 2020 01:00 PM VA-TOBACCO FORMER USER AV[facility] Feb 14, 2020 01:00 PM VA-TOBACCO QUIT 15 YRS [address] Jul 05, 2018 03:54 PM VA-TOBACCO FORMER USER [facility] Jul 05, 2018 03:54 PM VA-TOBACCO QUIT 15 YRS OR [address] May 19, 2017 01:01 PM QUIT TOBACCO USE > [address] Apr 29, 2016 12:14 PM QUIT TOBACCO USE > 7 YEARS AGO Quit [address] Mar 21, 2015 02:25 PM QUIT TOBACCO USE > [address] May 03, 2012 12:04 PM QUIT TOBACCO USE > [address] Encounter Notes: All associated encounter notes This section contains the clinical notes associated to the Encounter. Date/Time Encounter Note(s) Provider Source August 17, 2024 11:00 AM SOCIAL WORK NOTE: LOCAL TITLE: SOCIAL WORK NOTE STANDARD TITLE: SOCIAL WORK NOTE DATE OF NOTE: AUGUST 17, 2024@11:00 ENTRY DATE: AUGUST 17, 2024@12:26:17 AUTHOR: LUIS,SHANELL EXP COSIGNER: URGENCY: STATUS: COMPLETED INFORMED CONSENT REVIEWED: At beginning of session reviewed rights and limits of confidentiality, mandatory reporting situations, duty to warn and protect, Jesus Warning, (if treatment team finds patient to be an acute danger to himself or others, that this information could be relayed to a court of law and presented to a judge clerk), and DOD access for active duty service members. Provided Suicide Prevention Hotline number, and other contact numbers as necessary. 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 I find I still miss my . Am I holding on too long.? SESSION FOCUS: Met with face to face for individual counseling. Dumas stated he thinks he is still grieving the loss of his . She passed 13 years ago. He spoke more about it and stated he feels guilty, thinking he could have done something differently to help her. was an alcoholic. Assured there was nothing he could have done differently to save her. He agrees cognitively but still feels some sense of guilt. Dumas also misses his dog. He would like to get another but is hesitant due to the traveling he does with his daughter. He is considering it. INTERVENTIONS: Psychotherapeutic Interventions: CT; Reflective listening and support ASSESSMENT: BRIEF ASSESSMENT [...] PLAN FOR FOLLOW-UP: Next session planned for: 10/05/24 at 11am /lili/ SHANELL SMITH PACKING INSPECTOR Industrial Retrofit Designer Mental Health Signed: 08/17/2024 12:[address]
--- OUTSIDE RECORDS SUMMARY | 2024-08-22 11:16 | XMS_ITS | Encounter Summary ---
Author Name [facility] [place] [facility] [place] Address [address] [place] [address] Care Team Providers Care Change Control Specialist Name Role Phone ARNOLDO PERSAUD Primary [...] O MEDEX BRONZ E Apr 12, 2014 [id number] WILLOREN, OM[place] PATIENT [place] MED[place] SUPPLEMEN KATHRYN MEDEX BRONZ E Mar 12, 2013 [id number] [phone] WILLOREN, OM[place] PAT[place] KATHRYN MEDEX BRONZ E Mar 12, 2013 [id number] [phone] ALLI,TH OMAS PATIENT MEDICARE (WNR) MEDICARE (M) PART A Feb 10, 2013 PART A [id number] [id number] [phone] BENITO CARSON PATIENT MEDICARE (WNR) MEDICARE (M) PART B Feb 10, 2013 PART B [id number] [place]12 [phone] BENITO CARSON PATIENT MEDICARE (WNR) MEDICARE (M) PART A Feb 10, 2013 PART A [id number] BENITO CARSON PATIENT MEDICARE (WNR) MEDICARE (M) PART B Feb 10, 2013 PART B [id number] [id number] [phone] BENITO CARSON PATIENT Selected Encounter This section includes the information on record at [place] for the Encounter. Date/Time Encounter Type Encounter Description Reason Provider Source Feb 09, 2024 09:47 AM OFF/OP EST AUGUST X REQ PHY/QHP PRIMARY CARE/MEDICINE ICD-10-CM Z23 Encounter for immunization BECCA GAR Encounter Template Text not used by [place] Assessments - Encounter Diagnoses This section includes the primary and secondary diagnoses documented for the Encounter. Date/Time Primary/Secondary Diagnosis Diagnosis Name Provider Source Feb 20, 2024 12:22 PM PRIMARY Encounter for immunization BLAYNE GAR Plan of Treatment: Future Appointments (+ 6 [...] 10, 2024 11:00 AM AMBULATORY - PSYCHIATRY [facility] Mar 16, 2024 10:00 AM AMBULATORY - PSYCHIATRY [facility] Mar 22, 2024 11:30 AM AMBULATORY [place] MEDICINE [place] [facility] Apr 20, 2024 11:00 AM AMBULATORY - PSYCHIATRY [facility] May 19, 2024 11:00 AM AMBULATORY - PSYCHIATRY [facility] Jun 16, 2024 11:00 AM AMBULATORY - PSYCHIATRY [facility] Jul 20, 2024 11:00 AM AMBULATORY - PSYCHIATRY [facility] Immunizations: All administered on the encounter date This section contains immunizations associated to the Encounter. Immunization Series Date Issued Administered By Site Reaction Lot Number CVX Code Drug Salesperson Flowers Comment(s) Source COVID-19 (MODERNA), MRNA, LNP-S, PF, 50 MCG/0.5 ML (AGES 12+ YEARS) Feb 09, 2024 BECCA GAR E R RIGHT DELTO ID [id number] MODERNA [employer] ADMINISTERE D AT [facility] IELD INFLUENZA, HIGH-DOSE, TRIVALENT, PF Feb 09, 2024 CONG,BECCA E R LEFT DELTO ID [id number] SANOFI PASTEUR ADMINISTERE D AT [facility] IELD Social History: Smoking Status (Most current) and Tobacco Use (All prior to encounter date) This section includes the most current, and the historical, smoking and tobacco- related health factors from the [place] facility where the Encounter took place. Current Smoking Status This section includes the most current smoking, or tobacco-related health factor, from the [place] facility where the Encounter took place. Date/Time Current Smoking Status Comment [facility] Nov 01, 2023 11:00 AM VA-TOBACCO NEVER USED [facility] Tobacco Use History This section includes a history of the smoking, or tobacco-related health factors, that were collected on or before the date of the Encounter. The data comes from the [place] facility where the Encounter took place. Date/Time Smoking Status/Tobacco Use Comment F acility Sep 29, 2022 10:30 AM VA-TOBACCO FORMER USER [facility] Sep 29, 2022 10:30 AM VA-TOBACCO QUIT 15 YRS OR MORE [facility] Jan 21, 2021 09:00 AM VA-TOBACCO NEVER USED [facility] Feb 14, 2020 01:00 PM VA-TOBACCO FORMER USER [facility] Feb 14, 2020 01:00 PM VA-TOBACCO QUIT 15 YRS OR MORE [facility] Jul 05, 2018 03:54 PM VA-TOBACCO FORMER USER [facility] Jul 05, 2018 03:54 PM VA-TOBACCO QUIT 15 YRS OR MORE [facility] May 19, 2017 01:01 PM QUIT TOBACCO USE > 7 YEARS AGO [facility] Apr 29, 2016 12:14 PM QUIT TOBACCO USE > 7 YEARS AGO Quit 20 years ago [facility] Mar 21, 2015 02:25 PM QUIT TOBACCO USE > 7 YEARS AGO [facility] May 03, 2012 12:04 PM QUIT TOBACCO USE > 7 YEARS AGO [facility] Encounter Notes: All associated encounter notes This section contains the clinical notes associated to the Encounter. Date/Time Encounter Note(s) Provider Source Feb 09, 2024 09:48 AM PREVENTIVE MEDICIN E NURSING NOTE: LOCAL TITLE: CLINICAL REMINDERS/NURSING STANDARD TITLE: PREVENTIVE MEDICINE NURSING NOTE DATE OF NOTE: FEB 09, 2024@09:48 ENTRY DATE: FEB 09, 2024@09:48:04 AUTHOR: BLAYNE GAR EXP COSIGNER: URGENCY: STATUS: COMPLETED Influenza Immunization: Influenza, High-Dose, Trivalent, Preservative Free (Fluzone-Syringe) Administered: INFLUENZA, HIGH-DOSE, TRIVALENT, PF Date Administered: Feb 09, 2024 09:47 Salesperson Flowers: SANOFI PASTEUR Lot: [id number] Exp Date: Oct 09, 2024 NDC: 460254007961 Admin Route/Site: INTRAMUSCULAR/LEFT DELTOID Dosage: 0.5mL Vaccine Information Statement(s): INFLUENZA(FLU) VACC(INACTIVATED OR RECOMBINANT)VIS Nov 15, 2020 (AUSTRIAN) Order By: Policy Administered By: Blayne Gar [...] YEARS) Date Administered: Feb 09, 2024 09:47 Salesperson Flowers: MODERNA [employer]. Lot: [id number] Exp Date: September 01, 2024 NDC: [id number] Admin Route/Site: INTRAMUSCULAR/RIGHT DELTOID Dosage: .5mL Vaccine Information Statement(s): COVID-19 MRNA VACCINE (12+ YRS) VACCINE VIS Jan 28, 2023 (AUSTRIAN) Order By: Policy Administered By: Blayne Gar Vaccine administered without complications. /lili/ BLAYNE GAR LPN LPN Signed: 02/09/2024 09:55 BLAYNE GAR [facility]
--- OUTSIDE RECORDS SUMMARY | 2024-08-22 11:16 | XMS_ITS | Encounter Summary ---
Author Name [facility] [place] Organization [facility] [place] Address [address] [place] [address] Care Team Providers Care Physician Practice Market Manager Name Role Phone ARNOLDO PERSAUD Primary Care [...] O MEDEX BRONZ E Apr 12, 2014 [id number] WILLOREN, OM[place] PATIENT [place] SU[place]LEMEN KATHRYN MEDEX BRONZ E Mar 12, 2013 [id number] [phone] WILZ,TH OM[place] PATIENT [place] SUPP[place] KATHRYN MEDEX BRONZ E Mar 12, 2013 [id number] ALLI,TH OMAS PATIENT MEDICARE (WNR) MEDICARE (M) PART A Feb 10, 2013 PART A [id number] [phone] BENITO CARSON PATIENT MEDICARE (WNR) MEDICARE (M) PART B Feb 10, 2013 PART B [id number] [id number] [phone] BENITO CARSON PATIENT MEDICARE (WNR) MEDICARE (M) PART A Feb 10, 2013 PART A [id number] BENITO CARSON PATIENT MEDICARE (WNR) MEDICARE (M) PART B Feb 10, 2013 PART B [id number] [id number] [phone] BENIOT CARSON PATIENT Selected Encounter This section includes the information on record at [place] for the Encounter. Date/Time Encounter Type Encounter Description Reason Provider Source Jun 16, 2024 11:00 AM PSYTX W PT 60 MINUTES [facility] - IND ICD-10-CM F43.12 Post-traumatic stress disorder, chronic SHANELL SMITH Mike Encounter Template Text not used by [place] Assessments - Encounter Diagnoses This section includes the primary and secondary diagnoses documented for the Encounter. Date/Time Primary/Secondary Diagnosis Diagnosis Name Provider Source Jun 16, 2024 12:07 PM PRIMARY Post-traumatic stress disorder, chronic SHANELL SMITH Jun 16, 2024 12:07 PM SECONDARY Major depressv disorder, single episode, [...] Appointment Type Appointme nt Facility Name Jul 20, 2024 11:00 AM AMBULATORY - PSYCHIATRY [facility] August 17, 2024 11:00 AM AMBULATORY - PSYCHIATRY [facility] August 22, 2024 10:30 AM [place] [facility] [place] [facility] Oct 05, 2024 11:00 AM AMBULATORY - PSYCHIATRY [facility] Active, Pending, and Scheduled Orders This section includes a listing of several types of active, pending, and scheduled orders, including clinic medications orders, diagnostic test orders, procedure orders and consult orders; where the start date of the order is 45 days before the date of the Encounter or 45 days after the date of theEncounter. The data comes from all [place] treatment facilities. Test Date/Time Test Type Test Details Facility Name May 03, 2024 12:00 AM Laboratory - Chemistry Order VITAMIN D 25-OH (Therapy monitor) BLOOD (SST-SERUM) [facility] May 03, 2024 12:00 AM Laboratory - Chemistry Order VITAMIN B12 BLOOD (SST-SERUM) [facility] May 03, 2024 12:00 AM Laboratory - Chemistry Order MAGNESIUM BLOOD (SST-SERUM) [facility] May 03, 2024 12:00 AM Laboratory - Chemistry Order BASIC METABOLIC PANEL (fasting) BLOOD (SST-SERUM) [facility] May 03, 2024 12:00 AM Laboratory - Chemistry Order LIPID PANEL FASTING BLOOD (SST-SERUM) [facility] May 03, 2024 12:00 AM Laboratory - Chemistry Order LIVER FUNCTION BLOOD (SST-SERUM) [facility] May 03, 2024 12:00 AM Laboratory - Chemistry Order HEMOGLOBIN A1C PANEL BLOOD (LAV-BLOOD) [facility] May 03, 2024 12:00 AM Laboratory - Chemistry Order CBC AND DIFF (AUTO) BLOOD (LAV-BLOOD) [facility] May 03, 2024 12:00 AM Laboratory - Chemistry Order TSH BLOOD (SST-SERUM) [facility] Social History: Smoking Status (Most current) and Tobacco Use (All prior to encounter date) This section includes the most current, and the historical, smoking and tobacco- related health factors from the [place] facility where the Encounter took place. Current Smoking Status This section includes the most current smoking, or tobacco-related health factor, from the [place] facility where the Encounter took place. Date/Time Current Smoking Status Ron lin Nov 01, 2023 11:00 AM [place]-TOBAC[place] NEVER USED [facility] Tobacco Use History This section includes a history of the smoking, or tobacco-related health factors, that were collected on or before the date of the Encounter. The data comes from the [place] facility where the Encounter took place. Date/Time Smoking Status/Tobacco Use Comment F acility Sep 29, 2022 10:30 AM VA-TOBACCO FORMER USER [facility] Sep 29, 2022 10:30 AM VA-TOBACCO QUIT 15 YRS OR MORE [facility] Jan 21, 2021 09:00 AM VA-TOBACCO NEVER USED [facility] Feb 14, 2020 01:00 PM VA-TOBACCO FORMER USER [facility] Feb 14, 2020 01:00 PM VA-TOBACCO QUIT 15 YRS OR MORE [facility] Jul 05, 2018 03:54 PM VA-TOBACCO FORMER USER [facility] Jul 05, 2018 03:54 PM VA-TOBACCO QUIT 15 YRS OR MORE [facility] May 19, 2017 01:01 PM QUIT TOBACCO USE > 7 YEARS AGO [facility] Apr 29, 2016 12:14 PM QUIT TOBACCO USE > 7 YEARS AGO Quit 20 years ago [facility] Mar 21, 2015 02:25 PM QUIT TOBACCO USE > 7 YEARS AGO [facility] May 03, 2012 12:04 PM QUIT TOBACCO USE > 7 YEARS AGO [facility] Encounter Notes: All associated encounter notes This section contains the clinical notes associated to the Encounter. Date/Time Encounter Note(s) Provider Source Jun 16, 2024 11:00 AM SOCIAL WORK NOTE: LOCAL TITLE: SOCIAL WORK NOTE STANDARD TITLE: SOCIAL WORK NOTE DATE OF NOTE: JUN 16, 2024@11:00 ENTRY DATE: JUN 16, 2024@12:00:33 AUTHOR: SHANELL SMITH EXP COSIGNER: URGENCY: STATUS: COMPLETED INFORMED CONSENT REVIEWED: At beginning of session reviewed rights and limits of confidentiality, mandatory reporting situations, duty to warn and protect, Jesus Warning, (if treatment team finds patient to be an acute danger to himself or others, that this information could be relayed to a court of law and presented to a production wood craftsman), and DOD access for active duty service members. Provided Suicide Prevention Hotline number, and other contact numbers as necessary. 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 SESSION FOCUS: Met with [place] face to face for individual counseling. [place] stated he is concerned with the political environment in our country currently. He does not trust the administration to protect the citizens. Victor M spoke about a new study at [facility] on MDMA and Veterans who suffer from PTSD. He is going to [place] next week and looking forward to walking on the beach and relaxing. Victor M will get a dog and more chickens when he returns. spoke about his diagnosis of PTSD stating he knows people told him he was different when he returned from but he does not see it. Victor M continues to walk with his friend and her two dogs, looking forward to the day when he has another dog to walk with. INTERVENTIONS: Psychotherapeutic Interventions: [place]; Reflective listening and support ASSESSMENT: BRIEF ASSESSMENT [...] PLAN FOR FOLLOW-UP: Next session planned for: 07/20/24 at 11am /lili/ LUCY FORREST Die Casting Machine Setter Mental Health Signed: 06/16/2024 12:07 SHANELL SMITH
== END 2024-08-22 10:47 | disposition home or self-care (01) ==
LOC: HO.HGI 10:13
PROVIDERS: PCP Internal Medicine; Visit Provider Nurse Practitioner Family
DX: K57.90 Diverticulosis of intestine, part unspecified, without perforation or abscess without bleeding (principal); K21.9 Gastro-esophageal reflux disease without esophagitis; K59.1 Functional diarrhea; K58.2 Mixed irritable bowel syndrome; R14.0 Abdominal distension (gaseous)
CPT/HCPCS: 99213

== ENCOUNTER → 2024-08-22 10:12 | Outpatient (BNVA) | payer OTHER, SELFPAY | PROVIDERS: PCP Internal Medicine; Visit Provider Nurse Practitioner Family | DX: K57.90 Diverticulosis of intestine, part unspecified, without perforation or abscess without bleeding (principal); K21.9 Gastro-esophageal reflux disease without esophagitis; K59.1 Functional diarrhea; K58.2 Mixed irritable bowel syndrome; R14.0 Abdominal distension (gaseous) | CPT/HCPCS: 99212 ==